=== PATIENT | male | born 1940 ===

== ENCOUNTER 2017-01-27 15:47 | Observation (INO) | payer MEDICARE ==
[2017-01-27 16:29] LABS: BASO # 0.1 K/uL (0.0-0.2); BASO % 1.1 % (0.0-2.0); EOS # 0.3 K/uL (0.0-0.7); EOS % 3.1 % (0.0-4.0); HEMATOCRIT 30.5 % (35.0-51.0); LYMPH # 2.7 K/uL (1.0-4.3); LYMPH % 30.5 % (20.0-40.0); MEAN CORPUSCULAR HGB CONC 32.2 g/dL (33.0-37.0); MEAN PLATELET VOLUME 8.1 fl (7.2-11.7); MONO # 0.7 K/uL (0.0-0.8); MONO % 7.8 % (0.0-10.0); NEUT # 5.1 K/uL (1.8-7.0); NEUT % 57.5 % (50.0-75.0); RED CELL DISTRIBUTION WIDTH 18.4 % (11.5-14.5); WHITE BLOOD COUNT 8.9 K/uL (4.8-10.8)
--- NOTE | 2017-01-27 16:32 | ED PDOC ---
HPI: General Adult Time Seen by Provider: 01/27/17 15:54 Chief Complaint (Nursing): Weakness/Neurological Deficit Chief Complaint (Provider): Weakness/Neurological Deficit History Per: Patient, Family () History/Exam Limitations: no limitations Onset/Duration Of Symptoms: Hrs Current Symptoms Are (Timing): Still Present Additional Complaint(s): 76 y/o male who presents to the emergency department accompanied by with a complaint of feeling off balance while walking this morning around 7am. Last known normal 10:30 PM yesterday. Patient described his whole body kept leaning towards the left side and couldn't stand up straight. As per , patient had a previous stroke in 2009 which affected the left side of his body. Denies fall , residual weakness or pain. PMD: Dr. Ashutosh Jade MD Neurologist: Dr. Naseem BALDERAS NIHSS Stroke Scale - Date/Time Evaluation Performed Date Performed: 01/27/17 Time Performed: 16:00 When Was NIHSS Performed: Code Stroke - How Severe is the Stroke Level of Consciousness: 0=Alert LOC to Questions: 0=Both comments correct LOC to commands: 0=Obeys both correctly Best Gaze: 0=Normal Visual: 0=No visual loss Facial: 0=Normal Motor Arm - Left: 0=No drift Motor Arm - Right: 0=No drift Motor Leg - Left: 0=No drift Motor Leg - Right: 0=No drift Limb Ataxia: 0=Absent Sensory: 0=Normal Best Language: 0=No aphasia Dysarthia: 0=Normal articulation Extinction & Inattention (Neglect): 0=Normal, no object Score: 0 rTPA Inclusion/Exclusion - Refusal of Treatment Patient Refused Treatment: No - Inclusion Criteria for Altepase Patient is 18 years or Older: Yes The Clinical Diagnosis of Ischemic Stroke That is Causing a Potentially Disabling Neurological Deficit: No Time of Onset is Well Established to be Less Than 270 Minute Before Treatment Would Begin: No Risk/Benefit Discussed With Patient/Family Member Present: No - Warning to TPA With Conditions Following Conditions Weighed Against Anticipated Benefit: Yes Condition: Stroke Serevity Too Mild, Rapid Improvement Past Medical History Reviewed: Historical Data, Nursing Documentation, Vital Signs Vital Signs: Last Vital Signs Temp 97.8 F 01/27/17 17:54 Pulse 66 01/27/17 17:54 Resp 17 01/27/17 17:54 BP 164/74 H 01/27/17 17:54 Pulse Ox 99 01/27/17 17:54 - Medical History PMH: Diabetes, HTN, Seizures (Focal in 2011) Other PMH: Stroke 2009 - Surgical History Surgical History: No Surg Hx - Family History Family History: States: Unknown Family Hx - Living Arrangements Living Arrangements: With Family - Allergies Allergies/Adverse Reactions: Allergies Allergy/AdvReac Type Severity Reaction Status Date / Time No Known Allergies Allergy Verified 01/27/17 16:06 Review of Systems ROS Statement: Except As Marked, All Systems Reviewed And Found Negative Neurological: Positive for: Other (Off balance; leaning towards the left side more. ). Negative for: Weakness (or pain) Physical Exam - Reviewed Nursing Documentation Reviewed: Yes Vital Signs Reviewed: Yes - Physical Exam Appears: Positive for: Non-toxic, No Acute Distress Head Exam: Positive for: ATRAUMATIC, NORMOCEPHALIC Skin: Positive for: Normal Color, Warm, Dry ENT: Positive for: Normal ENT Inspection. Negative for: Pharyngeal Erythema Neck: Positive for: Normal, Supple Cardiovascular/Chest: Positive for: Regular Rate, Rhythm. Negative for: Murmur Respiratory: Positive for: Normal Breath Sounds. Negative for: Accessory Muscle Use, Respiratory Distress Gastrointestinal/Abdominal: Positive for: Normal Exam, Soft. Negative for: Tenderness Extremity: Positive for: Normal ROM. Negative for: Pedal Edema, Swelling Neurologic/Psych: Positive for: Alert, inpatient services director II-XII, Oriented, Cerebellar Tests ( FTN intact, HTS intact), Gait (Deferred). Negative for: Motor/Sensory Deficits , Aphasia, Facial Droop - Laboratory Results Result Diagrams: 01/27/17 15:57 01/27/17 15:57 - ECG Interpretation Of ECG: SR @ 65, 1st degree AVB, no ST-T changes. O2 Sat by Pulse Oximetry: 99 (RA) Pulse Ox Interpretation: Normal - Radiology X-Ray: Read By Radiologist (No active disease.) - CT Scan/US CT head Other Rad Studies (CT/US): Radiology Report Reviewed (No CT evidence of acute intracranial hemorrhage or acute territorial infarct. Acute infarction may be CT occult within first 24 hours. If a focal deficit persists, consider followup CT or MRI for further evaluation. Old right cerebral hemisphere infarct. Old infarct in the left cerebellar hemisphere. ) - Progress ED Course And Treament: Pt ambulated in ED, and patient state gait back to baseline. Re-evaluation Time: 17:29 Condition: Improved - Critical Care Total Time (In Min): 30 Medical Decision Making Medical Decision Making: Time: 15:54 Initial impression: Initial plan: --Type and Screen Stat --Head w/o contrast (CT) --Electrocardiogram Stat --COMP Metabolic Panel --Hemoglobin A1C Stat --Lipid Panel Stat --Troponin I Stat --EKG-ED (EDNURTX) Stat --CBC w/ differential --Partial Thromboplastin Time (COAG) --Prothrombin Time (COAG) --Chest Portable (RAD) --[employer] Supervisor CONT --IV Insertion (Saline Lock) --ED Obtain Labs Stat --AccuCheck --Nursing Swallow Screen PRN --Vital Signs Q15MIN --Revaluation Dr. Gusman paged X 2, answering service states he is away until tomorrow AM, no coverage. Scribe Attestation: Documented by Leatha Mchugh, acting as a scribe for Deb Segal MD. Provider Scribe Attestation: All medical record entries made by the Scribe were at my direction and personally dictated by me. I have reviewed the chart and agree that the record accurately reflects my personal performance of the history, physical exam, medical decision making, and the department course for this patient. I have also personally directed, reviewed, and agree with the discharge instructions and disposition. Disposition - Clinical Impression Clinical Impression: Transient cerebral ischemia - Patient ED Disposition Is Patient to be Admitted: Yes - Disposition Disposition Time: 17:58 Condition: STABLE - Pt Status Changed To: Hospital Disposition Of: Inpatient - Admit Certification Admit to Inpatient:: After my assessment, the patient will require hospitalization for at least two midnights. This is because of the severity of symptoms shown, intensity of services needed, and/or the medical risk in this patient being treated as an outpatient. - POA Present On Arrival: None
[2017-01-27 16:37] LABS: ALKALINE PHOSPHATASE 90 U/L (38-126); ALT/SGPT 27 U/L (21-72); AST/SGOT 23 U/L (17-59); BILIRUBIN,TOTAL 0.4 mg/dl (0.2-1.3); BLOOD UREA NITROGEN 26 mg/dl (9-20); CALCIUM 9.6 mg/dL (8.4-10.2); CARBON DIOXIDE 23 mmol/L (22-30); CHLORIDE 104 mmol/L (98-107); CHOLESTEROL 217 mg/dL (0-199); GFR AFRICAN-AMERICAN > 60; GLUCOSE,RANDOM 120 mg/dL (75-110); POTASSIUM 4.6 MMOL/L (3.6-5.0); SODIUM 142 mmol/l (132-148); TOTAL PROTEIN 7.9 G/DL (6.3-8.2)
[2017-01-27 16:53] LABS: PARTIAL THROMBOPLASTIN TIME 27.5 SECONDS (23.3-32.5)
--- NOTE | 2017-01-27 17:05 | CT ---
PROCEDURE: CT HEAD WITHOUT CONTRAST. HISTORY: Ataxia COMPARISON: 05/11/2011 TECHNIQUE: Axial computed tomography images were obtained through the head/brain without intravenous contrast. Radiation dose: Total exam DLP = 850.79 mGy-cm. This CT was performed using one or more of the following dose reduction techniques: Automated exposure control, adjustment of the mA and/or KV according to patient size, and/or use of iterative reconstruction technique. FINDINGS: HEMORRHAGE: No intracranial hemorrhage. BRAIN: Old right cerebral hemisphere infarct. No mass effect or edema. Moderate volume loss, essentially unchanged. No new acute territorial infarct. Patchy and confluent hypodensities throughout the bilateral cerebral hemispheric white matter are most likely from chronic small vessel ischemic changes. VENTRICLES: Unremarkable. No hydrocephalus. CALVARIUM: Unremarkable. PARANASAL SINUSES: Unremarkable as visualized. No significant inflammatory changes. MASTOID AIR CELLS: Unremarkable as visualized. No inflammatory changes. OTHER FINDINGS: Extensive vascular calcifications. IMPRESSION: No CT evidence of acute intracranial hemorrhage or acute territorial infarct. Acute infarction may be CT occult within first 24 hours. If a focal deficit persists, consider followup CT or MRI for further evaluation. Old right cerebral hemisphere infarct. Old infarct in the left cerebellar hemisphere. The findings as above.
--- NOTE | 2017-01-27 17:09 | RAD ---
HISTORY: Ataxia COMPARISON: No prior. FINDINGS: LUNGS: No active pulmonary disease. PLEURA: No significant pleural effusion identified, no pneumothorax apparent. CARDIOVASCULAR: Normal. OSSEOUS STRUCTURES: No significant abnormalities. VISUALIZED UPPER ABDOMEN: Normal. OTHER FINDINGS: None. IMPRESSION: No active disease.
[2017-01-28] MEDS ORDERED: Pneumococcal 23-Valent Vaccine IM ONE (06:30)
[2017-01-28 07:27] LABS: HEMATOCRIT 28.4 % (35.0-51.0); MEAN CELL VOLUME 80.5 fl (80.0-94.0); MEAN CORPUSCULAR HEMOGLOBIN 26.2 pg (27.0-31.0); MEAN CORPUSCULAR HGB CONC 32.5 g/dL (33.0-37.0); RED CELL DISTRIBUTION WIDTH 17.9 % (11.5-14.5); WHITE BLOOD COUNT 6.9 K/uL (4.8-10.8)
[2017-01-28 07:51] LABS: BLOOD UREA NITROGEN 22 mg/dl (9-20); CALCIUM 9.1 mg/dL (8.4-10.2); CARBON DIOXIDE 26 mmol/L (22-30); CHLORIDE 106 mmol/L (98-107); CHOLESTEROL 202 mg/dL (0-199); GFR AFRICAN-AMERICAN > 60; GLUCOSE,RANDOM 109 mg/dL (75-110); POTASSIUM 4.2 MMOL/L (3.6-5.0); SODIUM 142 mmol/l (132-148)
[2017-01-28 07:57] LABS: T4 6.91 ug/dl (5.5-11.0)
[2017-01-28 08:10] LABS: THYROID STIMULATING HORMONE 2.86 mIU/ML (0.46-4.68)
--- NOTE | 2017-01-28 08:33 | CARD ---
APPROVED REPORT EKG Measurement Heart [id number] <Conclusion> Sinus rhythm with 1st degree AV block Otherwise normal ECG
--- NOTE | 2017-01-28 16:10 | CP.PCM.CON ---
History of Present Illness - History of Present Illness History of Present Illness: Mr. Davis is a 76-year-old man with a past medical history of previous right MCA ischemic stroke in 2010, hypertension, dyslipidemia, diabetes and seizure disorder who was brought in due to new difficulty with balance that was noticed yesterday at around 7AM. He was last normal the evening of January 26. CT scan of the head was done and showed the previous large right MCA chronic stroke and a questionable chronic left cerebellar infarct. Neurology was consulted to assist with the management and care. The patient complained of feeling off balance when he ambulates. He denied visual changes, nausea, headache, abnormal shaking movements, new weakness, new sensory changes, chest pain, shortness of breath or dizziness. Review of Systems - Review of Systems All systems: reviewed and no additional remarkable complaints except - Constitutional Constitutional: As Per HPI - EENT Eyes: As Per HPI Ears: As Per HPI Nose/Mouth/Throat: As Per HPI - Cardiovascular Cardiovascular: As Per HPI - Respiratory Respiratory: As Per HPI - Gastrointestinal Gastrointestinal: As Per HPI - Musculoskeletal Musculoskeletal: As Per HPI - Neurological Neurological: As Per HPI Past Patient History - Past Medical History & Family History Past Medical History?: Yes - Past Social History Smoking Status: Former Smoker - CARDIAC Hx Cardiac Disorders: Yes - PULMONARY Hx Respiratory Disorders: No - NEUROLOGICAL Hx Neurological Disorder: Yes - HEENT Hx HEENT Problems: No - RENAL Hx Chronic Kidney Disease: No - ENDOCRINE/METABOLIC Hx Endocrine Disorders: No - HEMATOLOGICAL/ONCOLOGICAL Hx Blood Disorders: No - INTEGUMENTARY Hx Dermatological Problems: No - MUSCULOSKELETAL/RHEUMATOLOGICAL Hx Musculoskeletal Disorders: No - GASTROINTESTINAL Hx Gastrointestinal Disorders: No - GENITOURINARY/GYNECOLOGICAL Hx Genitourinary Disorders: No - PSYCHIATRIC Hx Psychophysiologic Disorder: No - SURGICAL HISTORY Hx Surgeries: No - ANESTHESIA Hx Anesthesia: No Hx Anesthesia Reactions: No Meds Allergies/Adverse Reactions: Allergies Allergy/AdvReac Type Severity Reaction Status Date / Time No Known Allergies Allergy Verified 01/27/17 16:06 - Medications Medications: Current Medications Amlodipine Besylate (Norvasc) 10 mg PO DAILY [facility] Last Admin: 01/28/17 09:21 Dose: 10 mg Aspirin (Ecotrin) 81 mg PO DAILY [facility] Last Admin: 01/28/17 09:30 Dose: 81 mg Atorvastatin Calcium (Lipitor) 10 mg PO [facility] Carvedilol (Coreg) 12.5 mg PO BID [facility] Last Admin: 01/28/17 09:20 Dose: 12.5 mg Levetiracetam (Keppra) 500 mg PO BID [facility] Last Admin: 01/28/17 09:21 Dose: 500 mg Metformin HCl (Glucophage) 500 mg PO TID [facility] Last Admin: 01/28/17 09:20 Dose: 500 mg Physical Exam - Constitutional Appears: Well - Cardiovascular Exam Cardiovascular Exam: REGULAR RHYTHM - Extremities Exam Extremities exam: Positive for: normal inspection - Neurological Exam Neurological exam: Alert, CN II-XII Intact, Oriented x3 - Expanded Neurological Exam Expanded Patient oriented to: person, place, time Cranial nerves: EOM's Intact: Normal, Facial Palsey w/Forehead Movement: Abnormal Left, Facial Sensation: Normal Cerebellar Function: Finger to Nose: Abnormal Left, Heel to Alanis: Abnormal Left Upper motor neuron: Babinski Sign: Abnormal Left, Pronator Drift: Abnormal Left Sensory exam: Lower Extremity 2 Point Discrimination: Abnormal Left, Upper Extremity Light Touch: Abnormal Left Neuro motor strength exam: Left Upper Extremity: 4, Right Upper Extremity: 5, Left Lower Extremity: 4, Right Lower Extremity: 5 DTR: Bicep Left: 3+, Bicep Right: 2+, Brachioradialis Left: 3+, Brachioradialis Right: 2+, Patellar Left: 3+, Patellar Right: 2+ Results - Vital Signs Recent Vital Signs: Last Vital Signs Temp 98.2 F 01/28/17 12:18 Pulse 65 01/28/17 12:18 Resp 18 01/28/17 12:18 BP 141/70 01/28/17 12:18 Pulse Ox 97 01/28/17 12:18 - Labs Result Diagrams: 01/28/17 06:20 01/28/17 06:20 Labs: Laboratory Results - last 24 hr 01/27/17 01/27/17 01/28/17 18:00 18:41 05:55 WBC RBC Hgb Hct MCV MCH MCHC RDW Plt Count Sodium Potassium Chloride Carbon Dioxide Anion Gap BUN Creatinine Est GFR ( Amer) Est GFR (Non-Af Amer) POC Glucose (mg/dL) 104 Random Glucose Calcium Triglycerides Cholesterol LDL Cholesterol Direct HDL Cholesterol Thyroxine (T4) TSH 3rd Generation Blood Type O POSITIVE Blood Type Confirm O POSITIVE Antibody Screen Negative BBK History Checked No verified bt 01/28/17 01/28/17 06:20 12:06 WBC 6.9 RBC 3.53 L Hgb 9.2 L Hct 28.4 L MCV 80.5 MCH 26.2 L MCHC 32.5 L RDW 17.9 H Plt Count 303 Sodium 142 Potassium 4.2 Chloride 106 Carbon Dioxide 26 Anion Gap 15 BUN 22 H Creatinine 1.2 Est GFR ( Amer) > 60 Est GFR (Non-Af Amer) 59 POC Glucose (mg/dL) 139 H Random Glucose 109 Calcium 9.1 Triglycerides 142 Cholesterol 202 H LDL Cholesterol Direct 107 HDL Cholesterol 45 Thyroxine (T4) 6.91 TSH 3rd Generation 2.86 Blood Type Blood Type Confirm Antibody Screen BBK History Checked - Imaging and Cardiology CT scan - head Status: Image reviewed by me, Report reviewed by me (Large right MCA chronic stroke with possible hypdensity in the cerebellum on the left (not clear)) Assessment & Plan (1) TIA (transient ischemic attack) Assessment and Plan: His symptoms seem to have improved, but he continues to complain of balance problems. I recommend the followin. MRI brain without contrast/ MRA head/neck without contrast\ 2. Aspirin 81 mg daily 3. Telemetry 4. DVT Px 5. PT/OT Eval 6. Continue statin 7. Normotension 8. Keppra level Thank you very much for this consultation. Status: Acute
--- NOTE | 2017-01-28 17:57 | MRI ---
PROCEDURE: MRI BRAIN WITHOUT CONTRAST HISTORY: suspected stroke COMPARISON: Comparison is made to the previous MRI dated 05/12/[address] dated 01/27/2017 TECHNIQUE: Multiplanar, multisequence MR images of the brain were obtained without intravenous contrast enhancement. FINDINGS: HEMORRHAGE: No evidence of acute hemorrhage. DWI: No evidence of an acute or early subacute infarction. BRAIN PARENCHYMA: Large encephalomalacia at the right temporal parietal and occipital lobe consistent with old infarct. Mild to moderate atrophy. Moderate white matter changes suggestive but nonspecific for chronic microvascular ischemic disease. VENTRICLES: Slightly dilated ventricle likely due to central atrophy. CRANIUM: Unremarkable. ORBITS: Grossly unremarkable. PARANASAL SINUSES/MASTOIDS: Slight mucosal thickening seen. No evidence of air-fluid level. VASCULAR SYSTEM: Skull base flow voids intact. OTHER FINDINGS: None. IMPRESSION: No evidence of acute infarct. Large encephalomalacia at the right brain again seen suggestive of old infarct/infarcts. [id number] atrophy and moderate chronic microvascular white matter ischemic disease.
--- NOTE | 2017-01-28 19:49 | CARD ---
APPROVED REPORT EKG Measurement Heart [id number] <Conclusion> Sinus rhythm with 1st degree AV block Otherwise normal ECG
--- NOTE | 2017-01-28 21:04 | CP.PCM.HP ---
History of Present Illness - History of Present Illness History of Present Illness: 76 yo with hx R CVA, hypertension, dyslipidemia, diabetes and seizure disorder admitted for vague sx suggestive of TIA CT scan in ER showed no acute findings Present on Admission - Present on Admission Any Indicators Present on Admission: No Past Patient History - Past Medical History & Family History Past Medical History?: Yes - Past Social History Smoking Status: Former Smoker - CARDIAC Hx Cardiac Disorders: Yes - PULMONARY Hx Respiratory Disorders: No - NEUROLOGICAL Hx Neurological Disorder: Yes - HEENT Hx HEENT Problems: No - RENAL Hx Chronic Kidney Disease: No - ENDOCRINE/METABOLIC Hx Endocrine Disorders: No - HEMATOLOGICAL/ONCOLOGICAL Hx Blood Disorders: No - INTEGUMENTARY Hx Dermatological Problems: No - MUSCULOSKELETAL/RHEUMATOLOGICAL Hx Musculoskeletal Disorders: No - GASTROINTESTINAL Hx Gastrointestinal Disorders: No - GENITOURINARY/GYNECOLOGICAL Hx Genitourinary Disorders: No - PSYCHIATRIC Hx Psychophysiologic Disorder: No - SURGICAL HISTORY Hx Surgeries: No - ANESTHESIA Hx Anesthesia: No Hx Anesthesia Reactions: No Meds Allergies/Adverse Reactions: Allergies Allergy/AdvReac Type Severity Reaction Status Date / Time No Known Allergies Allergy Verified 01/27/17 16:06 Physical Exam - Respiratory Exam Respiratory Exam: NORMAL BREATHING PATTERN - Cardiovascular Exam Cardiovascular Exam: REGULAR RHYTHM - GI/Abdominal Exam GI & Abdominal Exam: Normal Bowel Sounds Results - Vital Signs Recent Vital Signs: Last Vital Signs Temp 97.6 F 01/28/17 19:32 Pulse 73 01/28/17 19:32 Resp 20 01/28/17 19:32 BP 167/86 H 01/28/17 19:32 Pulse Ox 98 01/28/17 19:32 - Labs Result Diagrams: 01/28/17 06:20 01/28/17 06:20 Labs: Laboratory Results - last 24 hr 01/28/17 01/28/17 01/28/17 05:55 06:20 12:06 WBC 6.9 RBC 3.53 L Hgb 9.2 L Hct 28.4 L MCV 80.5 MCH 26.2 L MCHC 32.5 L RDW 17.9 H Plt Count 303 Sodium 142 Potassium 4.2 Chloride 106 Carbon Dioxide 26 Anion Gap 15 BUN 22 H Creatinine 1.2 Est GFR ( Amer) > 60 Est GFR (Non-Af Amer) 59 POC Glucose (mg/dL) 104 139 H Random Glucose 109 Calcium 9.1 Triglycerides 142 Cholesterol 202 H LDL Cholesterol Direct 107 HDL Cholesterol 45 Thyroxine (T4) 6.91 TSH 3rd Generation 2.86 01/28/17 18:18 WBC RBC Hgb Hct MCV MCH MCHC RDW Plt Count Sodium Potassium Chloride Carbon Dioxide Anion Gap BUN Creatinine Est GFR ( Amer) Est GFR (Non-Af Amer) POC Glucose (mg/dL) 187 H Random Glucose Calcium Triglycerides Cholesterol LDL Cholesterol Direct HDL Cholesterol Thyroxine (T4) TSH 3rd Generation Assessment & Plan - Assessment and Plan (Free Text) Assessment: TIA Hx R CVA, Neuro Cardiology ASA w/u Anemia Normochromic normocytic etiol? w/u ordered Hypertension Dyslipidemia Diabetes A1c 8.1 Seizure disorder - Date & Time Date: 01/28/17 Time: 22:22
--- NOTE | 2017-01-29 09:21 | MRI ---
PROCEDURE: Magnetic Resonance Angiography Brain HISTORY: Possible stroke COMPARISON: None available. TECHNIQUE: 3D time of flight MR angiography of the intracranial arteries was performed. Rotating maximum intensity projection images were generated. FINDINGS: INTERNAL CEREBRAL ARTERIES: There is mild asymmetric narrowing of the right cavernous carotid segment. The skull base,petrous, left cavernous and supraclinoid segments are bilaterally widely patient. ANTERIOR CEREBRAL ARTERIES: Normal in caliber. A1 and A2 segments are widely patent. Smaller distal branches unremarkable, as visualized. MIDDLE CEREBRAL ARTERIES: The left M1 and M2 segments are widely patent. The left perisylvian branches are normal in caliber. There is attenuation of the right perisylvian branches. POSTERIOR CIRCULATION: Basilar Artery: Normal in caliber Distal Vertebral Arteries: Normal in caliber. Posterior Cerebral Arteries: There is high-grade stenosis at the right posterior cerebral artery origin. There is also flow gap in the right proximal P2 segment and attenuation of the distal P2 segment. There is high-grade stenosis in the proximal left P2 segment. Posterior Inferior Cerebellar Arteries: Unremarkable. ANEURYSM/ VASCULAR MALFORMATIONS: None. OTHER FINDINGS: None. IMPRESSION: 1. Asymmetric narrowing of the right perisylvian branches of the M2 segment of middle cerebral artery. 2. High-grade stenosis at the right posterior cerebral artery origin and near occlusion in the proximal P2 segment with severe narrowing of the distal P2 segment. 3. High-grade stenosis in the proximal left P2 segment. Findings may be related to intracranial atherosclerosis.
--- NOTE | 2017-01-29 09:23 | MRI ---
PROCEDURE: MR Angiography of the neck without contrast HISTORY: possible stroke COMPARISON: None available. TECHNIQUE: 3D [id number] angiography of the neck was performed. Rotating maximum intensity projection images of the cervical carotid and vertebral arteries were generated. The origins of the common carotid arteries were not visualized, which is a limitation inherent to the non-contrast time of flight technique. FINDINGS: RIGHT CAROTID ARTERIES: Common Carotid Artery: Normal. Carotid Bifurcation: Normal. Internal Carotid Artery:Normal. External Carotid Artery (proximal branches): Normal. LEFT CAROTID ARTERIES: Common Carotid Artery: Normal. Carotid Bifurcation: Normal. Internal Carotid Artery:Normal. External Carotid Artery (proximal branches): Normal. VERTEBRAL ARTERIES: Right Vertebral Artery: Normal. Left Vertebral Artery: Normal. OTHER FINDINGS: None. IMPRESSION: Normal MR Angiography of the neck.
--- NOTE | 2017-01-29 21:01 | CP.PCM.PN ---
Subjective - Date & Time of Evaluation Date of Evaluation: 01/29/17 Time of Evaluation: 22:22 - Subjective Subjective: Still with unsteady gait? Objective - Vital Signs/Intake and Output Vital Signs (last 24 hours): Temp Pulse Resp BP Pulse Ox 98.4 F 83 20 163/80 H 98 01/29/17 20:34 01/29/17 20:50 01/29/17 20:34 01/29/17 20:34 01/29/17 20:34 - Medications Medications: Current Medications Amlodipine Besylate (Norvasc) 10 mg PO DAILY [facility] Last Admin: 01/29/17 09:26 Dose: 10 mg Aspirin (Ecotrin) 81 mg PO DAILY [facility] Last Admin: 01/29/17 09:26 Dose: 81 mg Atorvastatin Calcium (Lipitor) 10 mg PO HS [facility] Last Admin: 01/28/17 22:11 Dose: 10 mg Carvedilol (Coreg) 12.5 mg PO BID [facility] Last Admin: 01/29/17 16:20 Dose: 12.5 mg Levetiracetam (Keppra) 500 mg PO BID [facility] Last Admin: 01/29/17 16:19 Dose: 500 mg Metformin HCl (Glucophage) 500 mg PO TID [facility] Last Admin: 01/29/17 16:19 Dose: 500 mg - Labs Labs: 01/28/17 06:20 01/28/17 06:20 PT 10.1 SECONDS (9.6-11.2) 01/27/17 15:57 INR 0.97 (0.92-1.08) 01/27/17 15:57 APTT 27.5 SECONDS (23.3-32.5) 01/27/17 15:57 - Respiratory Exam Respiratory Exam: NORMAL BREATHING PATTERN - Cardiovascular Exam Cardiovascular Exam: REGULAR RHYTHM - GI/Abdominal Exam GI & Abdominal Exam: Normal Bowel Sounds Assessment and Plan - Assessment and Plan (Free Text) Assessment: TIA Hx R CVA, MRA R MCA? R post cerebral artery? Neuro Cardiology ASA Anemia Normochromic normocytic etiol? w/u ordered Hypertension Dyslipidemia Diabetes A1c 8.1 Seizure disorder
[2017-01-30 06:57] LABS: IRON 36 ug/dL (49-181)
[2017-01-30 07:24] LABS: THYROID STIMULATING HORMONE 2.68 mIU/ML (0.46-4.68)
[2017-01-30 08:08] VITALS: RESP 20
--- NOTE | 2017-01-30 11:00 | CP.PCM.CON ---
History of Present Illness - History of Present Illness History of Present Illness: 76 year old male admitted with possible TIA. History of seizure disorder, hypertension, diabetes type 2, history of CVA. Neurology consulted echo performed. Normocystic anemia noted on labs. Pt taking ASA 81mg 3x per wk. Chest pain free, no sob, no complaints of palpitations Past Patient History - Past Medical History & Family History Past Medical History?: Yes - Past Social History Smoking Status: Former Smoker - CARDIAC Hx Cardiac Disorders: Yes - PULMONARY Hx Respiratory Disorders: No - NEUROLOGICAL Hx Neurological Disorder: Yes - HEENT Hx HEENT Problems: No - RENAL Hx Chronic Kidney Disease: No - ENDOCRINE/METABOLIC Hx Endocrine Disorders: No - HEMATOLOGICAL/ONCOLOGICAL Hx Blood Disorders: No - INTEGUMENTARY Hx Dermatological Problems: No - MUSCULOSKELETAL/RHEUMATOLOGICAL Hx Musculoskeletal Disorders: No - GASTROINTESTINAL Hx Gastrointestinal Disorders: No - GENITOURINARY/GYNECOLOGICAL Hx Genitourinary Disorders: No - PSYCHIATRIC Hx Psychophysiologic Disorder: No - SURGICAL HISTORY Hx Surgeries: No - ANESTHESIA Hx Anesthesia: No Hx Anesthesia Reactions: No Meds Allergies/Adverse Reactions: Allergies Allergy/AdvReac Type Severity Reaction Status Date / Time No Known Allergies Allergy Verified 01/27/17 16:06 - Medications Medications: Current Medications Amlodipine Besylate (Norvasc) 10 mg PO DAILY [facility] Last Admin: 01/30/17 08:10 Dose: 10 mg Aspirin (Ecotrin) 325 mg PO DAILY [facility] Atorvastatin Calcium (Lipitor) 10 mg PO [facility] Last Admin: 01/29/17 21:02 Dose: 10 mg Carvedilol (Coreg) 12.5 mg PO BID [facility] Last Admin: 01/30/17 08:09 Dose: 12.5 mg Levetiracetam (Keppra) 500 mg PO BID [facility] Last Admin: 01/30/17 08:10 Dose: 500 mg Metformin HCl (Glucophage) 500 mg PO TID [facility] Last Admin: 01/30/17 08:10 Dose: 500 mg Physical Exam - Neck Exam Neck exam: Positive for: Normal Inspection - Respiratory Exam Respiratory Exam: Clear to Auscultation Bilateral - Cardiovascular Exam Cardiovascular Exam: REGULAR RHYTHM - GI/Abdominal Exam GI & Abdominal Exam: Normal Bowel Sounds - Extremities Exam Extremities exam: Positive for: normal inspection Results - Vital Signs Recent Vital Signs: Last Vital Signs Temp 98.0 F 01/30/17 08:07 Pulse 84 01/30/17 08:10 Resp 20 01/30/17 08:07 BP 166/89 H 01/30/17 08:10 Pulse Ox 98 01/30/17 08:07 - Labs Result Diagrams: 01/28/17 06:20 01/28/17 06:20 Labs: Laboratory Results - last 24 hr 01/29/17 01/29/17 01/29/17 11:09 15:54 21:15 POC Glucose (mg/dL) 190 H 150 H 163 H Iron TIBC % Saturation Ferritin Triglycerides Cholesterol LDL Cholesterol Direct HDL Cholesterol Vitamin B12 TSH 3rd Generation 01/30/17 01/30/17 05:30 05:35 POC Glucose (mg/dL) 113 H Iron 36 L TIBC 327 % Saturation 11 L Ferritin 10.0 Triglycerides 145 Cholesterol 208 H LDL Cholesterol Direct 113 HDL Cholesterol 43 Vitamin B12 706 TSH 3rd Generation 2.68 Assessment & Plan - Assessment and Plan (Free Text) Assessment: 76 year old male with possible TIA history of stroke, hypertension , diabetes, seizure disorder. Pt at relatively high risk for recurrent stroke. Echo reveals : Normal LVEF, Concentric LVH, Intra-atrial septal anneurysm with small PFO. No clot was visualized. Intra-atrial septal anneurysm and PFO's have been found to more prevalent in pts with strokes. Bp mildly elevated. #1 TIA? IAS / PFO : would probably optimize antiplatelet regimen with Plavix given recurrent strokes and echo findings. Pt is not a good candidate for Coumadin/ Anti-Thrombin agents given history of seizure disorder, dizziness and walking with cane. Would defer to neurology regarding anti-coagulation regimen #2 Bp : mildly elevated would further adjust as outpt continue present medical regimen #3 Would order iron studies, anemia w/u prior to dc given need for ongoing anti- platelet therapy. Plan: See Recommendations outlined in assessment
--- NOTE | 2017-01-30 12:53 | CP.PCM.PCO ---
Assessment/Plan - Assessment/Plan Assessment (Free Text): Patient seen and examined this morning. Reviewed MRI/MRA results with Dr Bravo neurologist. Orders for increasing aspirin from 81mg to 325mg daily. Patient may be discharged home, can follow up with Neurology outpatient. - Problems Patient Problems: Problem List (Active/Current) Problem Status Priority Diagnosed Code TIA (transient ischemic attack) Acute G45.9
--- NOTE | 2017-01-30 14:52 | CARD ---
APPROVED REPORT EXAM: Two-dimensional and M-mode echocardiogram with Doppler and color Doppler. Other Information Quality : GoodRhythm : NSR INDICATION CVA/TIA 2D DIMENSIONS IVSd1.93 (0.7-1.1cm)LVDd3.81 (3.9-5.9cm) LVOT Diameter2.16 (1.8-2.4cm)PWd1.25 (0.7-1.1cm) IVSs1.61 (0.8-1.2cm)LVDs3.16 (2.5-4.0cm) FS (%) 16.9 %PWs1.72 (0.8-1.2cm) M-Mode DIMENSIONS Left Atrium (MM)4.44 (2.5-4.0cm)IVSd1.44 (0.7-1.1cm) Aortic Root3.65 (2.2-3.7cm)LVDd4.50 (4.0-5.6cm) Aortic Cusp Exc.1.91 (1.5-2.0cm)PWd1.15 (0.7-1.1cm) IVSs1.71 cmFS (%) 31 % LVDs3.12 (2.0-3.8cm)PWs1.62 cm Mitral Valve MV E Cdrbpypq32.2cm/sMV DECEL [id number] A Ortcmpcb226.7cm/s MV MDM37vhL/A ratio0.4MVA (PHT)3.94cm2 TDI Lateral E' Peak V9.29cm/sMedial E' Peak V2.53cm/sE/Lateral E'4.2 E/Medial E'15.5 Pulmonary Valve PV Peak Wadmdoyz27.3cm/s LEFT VENTRICLE The left ventricle is normal size. There is mild concentric left ventricular hypertrophy. The left ventricular function is normal. The left ventricular ejection fraction is - 60%. There is normal LV segmental wall motion. Transmitral Doppler flow pattern is Grade I-abnormal relaxation pattern. No left ventricle thrombus noted on this study. There is no ventricular septal defect visualized. There is no left ventricular aneurysm. There is no mass noted in the left ventricle. RIGHT VENTRICLE The right ventricle is normal size. There is normal right ventricular wall thickness. The right ventricular systolic function is normal. ATRIA The left atrium is mildly dilated. There is no thrombus suspected in the left atrium. The right atrium size is normal. The interatrial septum is intact with no evidence for an atrial septal defect. AORTIC VALVE The aortic valve is normal in structure and function. There is mild aortic regurgitation. There is no aortic valvular stenosis. MITRAL VALVE The mitral valve is normal in structure and function. There is no evidence of mitral valve prolapse. There is no mitral valve stenosis. There is no mitral valve regurgitation noted. TRICUSPID VALVE The tricuspid valve is normal in structure and function. There is trace tricuspid regurgitation. There is no tricuspid valve prolapse or vegetation. There is no tricuspid valve stenosis. PULMONIC VALVE The pulmonary valve is normal in structure and function. There is no pulmonic valvular regurgitation. GREAT VESSELS The aortic root is normal in size. The IVC is normal in size and collapses >50% with inspiration. PERICARDIAL EFFUSION The pericardium appears normal. There is no pleural effusion. <Conclusion> The left ventricle is normal size. There is mild concentric left ventricular hypertrophy. The left ventricular function is normal. The left ventricular ejection fraction is - 60%. The left atrium is mildly dilated. The mitral, aortic and tricuspid valves are normal. There is mild aortic regurgitation and trace tricuspid regurgitation.
[2017-01-30 15:50] VITALS: BP 159/78; PULSE 69; TEMP 98; O2SAT 99
--- NOTE | 2017-01-30 18:04 | CP.PCM.PN ---
Subjective - Date & Time of Evaluation Date of Evaluation: 01/30/17 Time of Evaluation: 22:22 - Subjective Subjective: Above noted Objective - Vital Signs/Intake and Output Vital Signs (last 24 hours): Temp Pulse Resp BP Pulse Ox 98.0 F 69 20 159/78 H 99 01/30/17 15:49 01/30/17 17:03 01/30/17 15:49 01/30/17 17:03 01/30/17 15:49 - Medications Medications: Current Medications Amlodipine Besylate (Norvasc) 10 mg PO DAILY [facility] Last Admin: 01/30/17 08:10 Dose: 10 mg Aspirin (Ecotrin) 325 mg PO DAILY [facility] Atorvastatin Calcium (Lipitor) 10 mg PO HS [facility] Last Admin: 01/29/17 21:02 Dose: 10 mg Carvedilol (Coreg) 12.5 mg PO BID [facility] Last Admin: 01/30/17 17:03 Dose: 12.5 mg Levetiracetam (Keppra) 500 mg PO BID [facility] Last Admin: 01/30/17 17:04 Dose: 500 mg Metformin HCl (Glucophage) 500 mg PO TID [facility] Last Admin: 01/30/17 17:03 Dose: 500 mg - Labs Labs: 01/28/17 06:20 01/28/17 06:20 PT 10.1 SECONDS (9.6-11.2) 01/27/17 15:57 INR 0.97 (0.92-1.08) 01/27/17 15:57 APTT 27.5 SECONDS (23.3-32.5) 01/27/17 15:57 - Respiratory Exam Respiratory Exam: NORMAL BREATHING PATTERN - Cardiovascular Exam Cardiovascular Exam: REGULAR RHYTHM - GI/Abdominal Exam GI & Abdominal Exam: Normal Bowel Sounds Assessment and Plan - Assessment and Plan (Free Text) Assessment: TIA Hx R CVA, MRA R MCA? R post cerebral artery? Neuro Cardiology ASA Anemia Normochromic normocytic etiol? w/u ordered Hypertension Dyslipidemia Diabetes A1c 8.1 Seizure disorder
[2017-01-31] MEDS ORDERED: Aspirin 325 mg EC Tablets PO SCH (09:00)
== END 2017-01-30 19:55 | disposition home or self-care (01) ==
LOC: H.ER 15:47 → INTOOBSV 17:55 → H.ERHOLD 17:55 → H.TEL 21:41 → UNDODISIN 01-30 19:00
PROVIDERS: ADMIT Family Medicine Geriatric Medicine; ATTEND Family Medicine Geriatric Medicine
DX: G45.9 Transient cerebral ischemic attack, unspecified (principal); E11.9 Type 2 diabetes mellitus without complications; D64.9 Anemia, unspecified; E78.5 Hyperlipidemia, unspecified; I10 Essential (primary) hypertension; G40.909 Epilepsy, unspecified, not intractable, without status epilepticus; Z86.73 Personal history of transient ischemic attack (TIA), and cerebral infarction without residual deficits; Z23 Encounter for immunization
CPT/HCPCS: 36415; 70450; 70544; 70547; 70551; 71010; 80048; 80053; 80061; 80299; 82607; 82728; 82747; 82948; 83036; 83540; 83550; 84436; 84443; 84484; 85025; 85027; 85610; 85730; 86850; 86900; 90732; 93005; 93306; 97116; 97161; 97166; 97530; 97535; 99283; G0009; G0378; G8978; G8979; G8987; G8988

== ENCOUNTER 2018-01-21 19:02 | Inpatient (IN) | payer MEDICARE ==
--- NOTE | 2018-01-21 19:23 | ED PDOC ---
HPI:STROKE - Time Time: 19:25 - Historian Historian: Patient, Family - Chief Complaint Chief Complaint: Difficulty walking, other (difficulty with speech) - Onset Onset: Hours (x11) - Notes: Notes:: Lizandro Davis is a 77 year old male with a past medical history of stroke, who is presenting to the ER with complaints of difficulty walking, onset around 8 am this morning when he woke up. According to this , they believed he was tired and fatigued, but his difficulty walking persisted and worsened throughout the day. Patient began to lean to one side when walking to the bathroom associated with speech difficulties, and was admitted for similar symptoms 1 year ago. He offers no other medical complaints at this time. PMD: Dr. Moreno NIHSS Stroke Scale - Date/Time Evaluation Performed Date Performed: 01/21/18 Time Performed: 19:20 When Was NIHSS Performed: Baseline - How Severe is the Stroke Level of Consciousness: 0=Alert LOC to Questions: 0=Both comments correct LOC to commands: 0=Obeys both correctly Best Gaze: 0=Normal Visual: 0=No visual loss Facial: 1=Minor asymmetry Motor Arm - Left: 0=No drift Motor Arm - Right: 0=No drift Motor Leg - Left: 0=No drift Motor Leg - Right: 0=No drift Limb Ataxia: 0=Absent Sensory: 0=Normal Best Language: 1=Mild to moderate aphasia Dysarthia: 1=Mild to moderate slurring Extinction & Inattention (Neglect): 0=Normal, no object Score: 3 rTPA Inclusion/Exclusion - Refusal of Treatment Patient Refused Treatment: No - Inclusion Criteria for Altepase Patient is 18 years or Older: Yes The Clinical Diagnosis of Ischemic Stroke That is Causing a Potentially Disabling Neurological Deficit: Yes Time of Onset is Well Established to be Less Than 270 Minute Before Treatment Would Begin: No Risk/Benefit Discussed With Patient/Family Member Present: No - Exclusion Criteria for Altepase Uncontrolled Hypertension at Time of Treatment (Systolic BP above 185 or Diastolic BP above 110 mmHg): No Past Medical History Reviewed: Historical Data, Nursing Documentation, Vital Signs Vital Signs: Last Vital Signs Temp 97.4 F L 01/21/18 19:13 Pulse 71 01/21/18 19:13 Resp 18 01/21/18 19:13 BP 138/75 01/21/18 19:13 Pulse Ox 98 01/21/18 19:13 - Medical History PMH: CVA, Diabetes, HTN, Hypercholesterolemia, Seizures (Focal in 2011) Denies: Chronic Kidney Disease - Family History Family History: States: Unknown Family Hx - Home Medications Home Medications: Ambulatory Orders Medication Instructions Recorded Carvedilol [Coreg] 12.5 mg PO BID 01/27/17 levETIRAcetam [Keppra] 500 mg PO BID 01/27/17 metFORMIN [glucOPHAGE] 500 mg PO TID 01/27/17 Clopidogrel [Plavix] 75 mg PO DAILY #7 tab 01/30/17 Aspirin [Aspirin Chewable] 81 mg PO DAILY chew 01/24/18 Atorvastatin [Lipitor] 10 mg PO HS 01/24/18 Cilostazol [Pletal] 100 mg PO BID tab 01/24/18 Enoxaparin [Lovenox] 30 mg SC DAILY syr 01/24/18 - Allergies Allergies/Adverse Reactions: Allergies Allergy/AdvReac Type Severity Reaction Status Date / Time No Known Allergies Allergy Verified 01/27/17 16:06 Review of Systems ROS Statement: Except As Marked, All Systems Reviewed And Found Negative Constitutional: Positive for: Other (Difficulty speaking) Musculoskeletal: Positive for: Other (difficulty walking) Physical Exam - Reviewed Nursing Documentation Reviewed: Yes Vital Signs Reviewed: Yes - Physical Exam Appears: Positive for: No Acute Distress. Negative for: Well ((+) appears chronically ill) Head Exam: Positive for: ATRAUMATIC, NORMOCEPHALIC Skin: Positive for: Warm, Dry Eye Exam: Positive for: EOMI, PERRL ENT: Positive for: Other (tachy mucous membranes) Neck: Positive for: Painless ROM, Supple Cardiovascular/Chest: Positive for: Regular Rate, Rhythm. Negative for: Murmur Respiratory: Positive for: Normal Breath Sounds. Negative for: Wheezing Gastrointestinal/Abdominal: Positive for: Soft. Negative for: Tenderness Back: Positive for: Normal Inspection Extremity: Negative for: Deformity Lymphatic: Negative for: Adenopathy Neurologic/Psych: Positive for: Alert, Oriented (x3), Gait (shuffling, slow), Other (subtle facial droop, see NIH stroke scale) - Laboratory Results Result Diagrams: 01/24/18 10:10 01/24/18 10:10 - ECG O2 Sat by Pulse Oximetry: 98 (RA) Pulse Ox Interpretation: Normal Medical Decision Making Medical Decision Making: Time: 20:02 Impression:abnormal gait, and slurred speech Differentials: stroke, TIA dehydration, electrolyte abnormality, metabolic encephalopathy Plan: --Blood Type and Screen --CT Head --CTA Head/Neck --EKG --CMP --Hemoglobin A1C --Lipid Panel --Magnesium --Troponin --CBC --COAG --IV Fluids CT head with no acute findings. MAKENNA Bravo Neurology avionics electronics technician. Pt to be hospitalized for possible CVA vs metabolic encephalopathy Scribe Attestation: Documented by Karina Swan acting as a scribe for Michelle Renteria MD. Scribe Attestation: All medical record entries made by the Scribe were at my direction and personally dictated by me. I have reviewed the chart and agree that the record accurately reflects my personal performance of the history, physical exam, medical decision making, and the department course for this patient. I have also personally directed, reviewed, and agree with the discharge instructions and disposition. Disposition - Clinical Impression Clinical Impression: Dehydration, Weakness of one side of body Discussed With Dr.: Ashutosh Jade Doctor Will See Patient In The: Hospital Counseled Patient/Family Regarding: Studies Performed, Diagnosis - Disposition Disposition Time: 21:00 Condition: GUARDED - Pt Status Changed To: Hospital Disposition Of: Inpatient - Admit Certification Admit to Inpatient:: After my assessment, the patient will require hospitalization for at least two midnights. This is because of the severity of symptoms shown, intensity of services needed, and/or the medical risk in this patient being treated as an outpatient. - POA Present On Arrival: Falls Or Trauma
[2018-01-21] MEDS ORDERED: Sodium Chloride 0.9% 1,000 ML IV SCH (19:30)
[2018-01-21 20:10] LABS: BASO # 0.1 K/uL (0.0-0.2); BASO % 0.8 % (0.0-2.0); EOS # 0.3 K/uL (0.0-0.7); EOS % 3.9 % (0.0-4.0); HEMOGLOBIN 9.3 g/dL (12.0-18.0); LYMPH # 2.1 K/uL (1.0-4.3); LYMPH % 27.4 % (20.0-40.0); MEAN CELL VOLUME 84.1 fl (80.0-94.0); MEAN CORPUSCULAR HEMOGLOBIN 28.1 pg (27.0-31.0); MEAN CORPUSCULAR HGB CONC 33.5 g/dL (33.0-37.0); MONO # 0.7 K/uL (0.0-0.8); MONO % 8.4 % (0.0-10.0); NEUT # 4.7 K/uL (1.8-7.0); NEUT % 59.5 % (50.0-75.0); NRBC % 0.1 % (0.0-0.0); RBC 3.3 Mil/uL (4.40-5.90); RED CELL DISTRIBUTION WIDTH 15.4 % (11.5-14.5); WHITE BLOOD COUNT 7.9 K/uL (4.8-10.8)
[2018-01-21 20:17] LABS: PARTIAL THROMBOPLASTIN TIME 35.1 Seconds (25.6-37.1); PROTHROMBIN TIME 10.7 Seconds (9.8-13.1)
[2018-01-21 20:22] LABS: ALBUMIN 3.7 g/dL (3.5-5.0); ALT/SGPT 26 U/L (21-72); AST/SGOT 27 U/L (17-59); BLOOD UREA NITROGEN 23 mg/dl (9-20); GFR AFRICAN-AMERICAN 51; GFR NON-AFRICAN AMERICAN 42; HDL CHOLESTEROL 41 MG/DL (30-70)
[2018-01-21 20:32] LABS: LDL CHOLESTEROL 95 mg/dL (0-129)
--- NOTE | 2018-01-21 22:56 | CP.PCM.CON ---
History of Present Illness - History of Present Illness History of Present Illness: Mr. Davis is a 77-year-old man with a past medical history of HTN, HLD, previous large right MCA stroke, seizure disorder, who has recovered incredibly well, but over the last several days has had progressive worsening of his gait and speech difficulty. His brought him in today because she felt that his gait was becoming worse. CT scan of the head did not show any acute findings, but did demonstrate the previous large right MCA stroke. Labs showed elevated creatinine and signs of dehydration. Review of Systems - Review of Systems All systems: reviewed and no additional remarkable complaints except Past Patient History - Past Medical History & Family History Past Medical History?: Yes - Past Social History Smoking Status: Former Smoker - CARDIAC Hx Hypercholesterolemia: Yes Hx Hypertension: Yes - PULMONARY Hx Respiratory Disorders: No - NEUROLOGICAL Hx Seizures: Yes (Focal in 2010) - HEENT Hx HEENT Problems: No - RENAL Hx Chronic Kidney Disease: No - ENDOCRINE/METABOLIC Hx Endocrine Disorders: No - HEMATOLOGICAL/ONCOLOGICAL Hx Blood Disorders: No - INTEGUMENTARY Hx Dermatological Problems: No - MUSCULOSKELETAL/RHEUMATOLOGICAL Hx Musculoskeletal Disorders: No - GASTROINTESTINAL Hx Gastrointestinal Disorders: No - GENITOURINARY/GYNECOLOGICAL Hx Genitourinary Disorders: No - PSYCHIATRIC Hx Psychophysiologic Disorder: No Hx Substance Use: No - SURGICAL HISTORY Hx Surgeries: No - ANESTHESIA Hx Anesthesia: No Hx Anesthesia Reactions: No Meds Allergies/Adverse Reactions: Allergies Allergy/AdvReac Type Severity Reaction Status Date / Time No Known Allergies Allergy Verified 01/27/17 16:06 - Medications Medications: Current Medications Atorvastatin Calcium (Lipitor) 10 mg PO HS [facility] Carvedilol (Coreg) 12.5 mg PO BID [facility] Clopidogrel Bisulfate (Plavix) 75 mg PO DAILY [facility] Sodium Chloride (Sodium Chloride 0.9%) 1,000 mls @ 100 mls/hr IV .Q10H [facility] Levetiracetam (Keppra) 500 mg PO BID [facility] Metformin HCl (Glucophage) 500 mg PO TID [facility] Physical Exam - Neurological Exam Neurological exam: Abnormal Gait, Alert, CN II-XII Intact, Oriented x3 Additional comments: Reflexes are brisk on the left side with upgoing plantar response. Coordination is slightly impaired with FTN and HTS. Gait is wide based with elements of ataxia. Sensation is intact to LT/P. Results - Vital Signs Recent Vital Signs: Last Vital Signs Temp 98.1 F 01/21/18 20:18 Pulse 71 01/21/18 19:13 Resp 18 01/21/18 19:13 BP 138/75 01/21/18 19:13 Pulse Ox 98 01/21/18 20:16 - Labs Result Diagrams: 01/21/18 20:02 01/21/18 20:02 Labs: Laboratory Results - last 24 hr 01/21/18 01/21/18 01/21/18 19:11 20:02 20:02 WBC 7.9 RBC 3.30 L Hgb 9.3 L Hct 27.7 L MCV 84.1 D MCH 28.1 MCHC 33.5 RDW 15.4 H Plt Count 366 MPV 7.0 L Neut % (Auto) 59.5 Lymph % (Auto) 27.4 [place] % (Auto) 8.4 Eos % (Auto) 3.9 Baso % (Auto) 0.8 Neut # (Auto) 4.7 Lymph # (Auto) 2.1 [place] # (Auto) 0.7 Eos # (Auto) 0.3 Baso # (Auto) 0.1 PT INR APTT Sodium 141 Potassium 4.8 Chloride 105 Carbon Dioxide 21 L Anion Gap 20 BUN 23 H Creatinine 1.6 H Est GFR ( Amer) 51 Est GFR (Non-Af Amer) 42 POC Glucose (mg/dL) 160 H Random Glucose 175 H Calcium 9.0 Phosphorus 3.8 Magnesium 2.0 Total Bilirubin 0.2 AST 27 ALT 26 Alkaline Phosphatase 86 Troponin I < 0.0120 Total Protein 7.3 Albumin 3.7 Globulin 3.6 Albumin/Globulin Ratio 1.0 Triglycerides 201 H D Cholesterol 171 LDL Cholesterol Direct 95 HDL Cholesterol 41 Blood Type Antibody Screen BBK History Checked 01/21/18 01/21/18 20:02 20:02 WBC RBC Hgb Hct MCV MCH MCHC RDW Plt Count MPV Neut % (Auto) Lymph % (Auto) [place] % (Auto) Eos % (Auto) Baso % (Auto) Neut # (Auto) Lymph # (Auto) [place] # (Auto) Eos # (Auto) Baso # (Auto) PT 10.7 INR 1.0 APTT 35.1 Sodium Potassium Chloride Carbon Dioxide Anion Gap BUN Creatinine Est GFR ( Amer) Est GFR (Non-Af Amer) POC Glucose (mg/dL) Random Glucose Calcium Phosphorus Magnesium Total Bilirubin AST ALT Alkaline Phosphatase Troponin I Total Protein Albumin Globulin Albumin/Globulin Ratio Triglycerides Cholesterol LDL Cholesterol Direct HDL Cholesterol Blood Type O POSITIVE Antibody Screen Negative BBK History Checked Patient has bt Assessment & Plan (1) Dehydration Assessment and Plan: I recommend fluids with NS at 100 mL/hr after 1 liter bolus. Continue evaluating with cultures, urinalysis and infectious work-up. Check Keppra level since it may be elevated and causing some gait instability due to increased creatinine and decreased clearance. Status: Acute Priority: High (2) TIA (transient ischemic attack) Assessment and Plan: Continue Plavix, statin and obtain PT/OT eval with treatment. Will obtain MRI of the brain without contrast to rule out any new strokes. Thank you. Status: Acute
[2018-01-22] MEDS ORDERED: Influenza Vaccine 18yr & older 0.5 ML/45 MCG SYR IM ONE (03:23)
--- NOTE | 2018-01-22 08:17 | CT ---
PROCEDURE: CT HEAD WITHOUT CONTRAST. HISTORY: code stroke COMPARISON: 01/27/2017 TECHNIQUE: Axial computed tomography images were obtained through the head/brain without intravenous contrast. Radiation dose: Total exam DLP = 852 mGy-cm. This CT exam was performed using one or more of the following dose reduction techniques: Automated exposure control, adjustment of the mA and/or kV according to patient size, and/or use of iterative reconstruction technique. FINDINGS: HEMORRHAGE: No intracranial hemorrhage. BRAIN: The right cerebral hemispheric encephalomalacia with old infarct is similar in appearance No atrophy or Chronic microvascular ischemic changes -similar. VENTRICLES: Ex vacuo changes on the right. No interval hydrocephalus. CALVARIUM: Unremarkable. PARANASAL SINUSES: Unremarkable as visualized. No significant inflammatory changes. MASTOID AIR CELLS: Unremarkable as visualized. No inflammatory changes. OTHER FINDINGS: None. IMPRESSION: No interval hemorrhage or mass effect. Chronic extensive cerebral hemispheric encephalomalacia changes consistent with remote infarct. Comments: Preliminary report per Vrad compatible with this report.
--- NOTE | 2018-01-22 10:48 | RAD ---
HISTORY: Code Stroke COMPARISON: 01/27/2017 FINDINGS: LUNGS: No active pulmonary disease. PLEURA: No significant pleural effusion identified, no pneumothorax apparent. CARDIOVASCULAR: Normal. OSSEOUS STRUCTURES: No significant abnormalities. VISUALIZED UPPER ABDOMEN: Normal. OTHER FINDINGS: None. IMPRESSION: No active disease.
--- NOTE | 2018-01-22 11:03 | CP.PCM.PN ---
Subjective - Date & Time of Evaluation Date of Evaluation: 01/22/18 Time of Evaluation: 11:01 - Subjective Subjective: Mr. Davis was seen and examined at the bedside. He is alert, oriented with dysarthia. He denies any headache, dizziness, lightheadedness, blurred vision. He is able to follow simple commands. Reflexes are brisk on the left side with upgoing plantar response. Coordination is slightly impaired and sensation is intact to LT/P. CT scan of the head showed no acute findings but a chronic encephalomalacia. There was no untoward events noted. Objective - Vital Signs/Intake and Output Vital Signs (last 24 hours): Temp Pulse Resp BP Pulse Ox 98.1 F 69 18 168/79 H 97 01/22/18 08:06 01/22/18 10:23 01/22/18 08:06 01/22/18 10:23 01/22/18 08:06 - Medications Medications: Current Medications Atorvastatin Calcium (Lipitor) 10 mg PO [facility] Carvedilol (Coreg) 12.5 mg PO BID [facility] Last Admin: 01/22/18 10:23 Dose: 12.5 mg Clopidogrel Bisulfate (Plavix) 75 mg PO DAILY [facility] Last Admin: 01/22/18 10:22 Dose: 75 mg Sodium Chloride (Sodium Chloride 0.9%) 1,000 mls @ 100 mls/hr IV .Q10H [facility] Last Admin: 01/21/18 23:15 Dose: 100 mls/hr Levetiracetam (Keppra) 500 mg PO BID [facility] Last Admin: 01/22/18 10:23 Dose: 500 mg Metformin HCl (Glucophage) 500 mg PO TID [facility] - Labs Labs: 01/21/18 20:02 01/21/18 20:02 PT 10.7 Seconds (9.8-13.1) 01/21/18 20:02 INR 1.0 (0.9-1.2) 01/21/18 20:02 APTT 35.1 Seconds (25.6-37.1) 01/21/18 20:02 - Constitutional Appears: No Acute Distress - Head Exam Head Exam: NORMAL INSPECTION - Eye Exam Pupil Exam: PERRL - Neurological Exam Neurological Exam: Alert, Awake Neuro motor strength exam: Left Upper Extremity: 5, Right Upper Extremity: 4, Left Lower Extremity: 5, Right Lower Extremity: 4 Additional comments: Reflexes are brisk on the left side with upgoing plantar response. Coordination is slightly impaired with FTN and HTS. . Sensation is intact to LT /P. Assessment and Plan (1) TIA (transient ischemic attack) Assessment & Plan: Case discussed with Dr. Braov, continue all current medical, physical, occupational, and speech therapies. Pending MRI of the brain and keppra level results. Status: Acute
--- NOTE | 2018-01-22 12:13 | MRI ---
PROCEDURE: MRI BRAIN WITHOUT CONTRAST HISTORY: TIA. r/o new ischemic infarcts COMPARISON: None. TECHNIQUE: Multiplanar, multisequence MR images of the brain were obtained without intravenous contrast enhancement. FINDINGS: HEMORRHAGE: None DWI: Faint heterogeneous restricted diffusion is identified at the left thin central eyal inferiorly. There are two punctate restricted diffusion foci at the right parietal lobe laterally. The prior findings suggestive of probable acute or subacute lacunar infarcts. Pontine changes either reflect minimal acute or subacute infarcts are early chronic lacunes. BRAIN PARENCHYMA: Gross cystic encephalomalacia is appreciated affecting the mid to posterior right MCA distribution and right [employer] B[employer] distribution inferiorly with periventricular white-matter changes compatible chronic microangiopathy. Diffuse cerebral atrophy is reiterated. There is no significant mass effect. There is no suspicious extra-axial fluid collection identified. VENTRICLES: Unremarkable. No hydrocephalus. CRANIUM: Unremarkable. ORBITS: Grossly unremarkable. PARANASAL SINUSES/MASTOIDS: Clear VASCULAR SYSTEM: Skull base flow voids intact. OTHER FINDINGS: None. IMPRESSION: Limited acute or subacute lacunar infarcts are seen affecting the midline to left inferior eyal as well as right parietal lobe. Gross chronic lobar infarctions anterior middle right MCA distribution, inferior right [employer] BILLER distribution, reiterated. Age related neuro degenerative changes identified once again.
[2018-01-22] MEDS: Cilostazol 100 mg Tab UD PO SCH (17:27)
[2018-01-22] MEDS: Enoxaparin 30 mg Syringe SC SCH (17:27)
[2018-01-22 17:40] LABS: CALCIUM 8.9 mg/dL (8.4-10.2)
--- NOTE | 2018-01-22 19:38 | CP.PCM.HP ---
History of Present Illness - History of Present Illness History of Present Illness: 77 yo admitted for dysarthria and unsteady gait Present on Admission - Present on Admission Any Indicators Present on Admission: No Past Patient History - Past Medical History & Family History Past Medical History?: Yes - Past Social History Smoking Status: Former Smoker - CARDIAC Hx Hypercholesterolemia: Yes Hx Hypertension: Yes - PULMONARY Hx Respiratory Disorders: No - NEUROLOGICAL Hx Seizures: Yes (Focal in 2011) - HEENT Hx HEENT Problems: No - RENAL Hx Chronic Kidney Disease: No - ENDOCRINE/METABOLIC Hx Diabetes Mellitus Type 2: Yes - HEMATOLOGICAL/ONCOLOGICAL Hx Blood Disorders: No Hx AIDS: No Hx Human Immunodeficiency Virus (HIV): No - INTEGUMENTARY Hx Dermatological Problems: No - MUSCULOSKELETAL/RHEUMATOLOGICAL Hx Falls: No Hx Unsteady Gait: Yes - GASTROINTESTINAL Hx Gastrointestinal Disorders: No - GENITOURINARY/GYNECOLOGICAL Hx Genitourinary Disorders: No - PSYCHIATRIC Hx Psychophysiologic Disorder: No Hx Substance Use: No - SURGICAL HISTORY Hx Surgeries: No - ANESTHESIA Hx Anesthesia: No Hx Anesthesia Reactions: No Hx Malignant Hyperthermia: No Has any member of the family had a problem w/ anesthesia?: No Meds Allergies/Adverse Reactions: Allergies Allergy/AdvReac Type Severity Reaction Status Date / Time No Known Allergies Allergy Verified 01/27/17 16:06 Physical Exam - Respiratory Exam Respiratory Exam: NORMAL BREATHING PATTERN - Cardiovascular Exam Cardiovascular Exam: REGULAR RHYTHM - GI/Abdominal Exam GI & Abdominal Exam: Normal Bowel Sounds Results - Vital Signs Recent Vital Signs: Last Vital Signs Temp 98.1 F 01/22/18 19:35 Pulse 69 01/22/18 19:35 Resp 17 01/22/18 19:35 BP 151/73 H 01/22/18 19:35 Pulse Ox 96 01/22/18 19:35 - Labs Result Diagrams: 01/21/18 20:02 01/22/18 17:12 Labs: Laboratory Results - last 24 hr 01/21/18 01/21/18 01/21/18 19:11 20:02 20:02 WBC 7.9 RBC 3.30 L Hgb 9.3 L Hct 27.7 L MCV 84.1 D MCH 28.1 MCHC 33.5 RDW 15.4 H Plt Count 366 MPV 7.0 L Neut % (Auto) 59.5 Lymph % (Auto) 27.4 [place] % (Auto) 8.4 Eos % (Auto) 3.9 Baso % (Auto) 0.8 Neut # (Auto) 4.7 Lymph # (Auto) 2.1 [place] # (Auto) 0.7 Eos # (Auto) 0.3 Baso # (Auto) 0.1 PT INR APTT Sodium 141 Potassium 4.8 Chloride 105 Carbon Dioxide 21 L Anion Gap 20 BUN 23 H Creatinine 1.6 H Est GFR ( Amer) 51 Est GFR (Non-Af Amer) 42 POC Glucose (mg/dL) 160 H Random Glucose 175 H Hemoglobin A1c Calcium 9.0 Phosphorus 3.8 Magnesium 2.0 Total Bilirubin 0.2 AST 27 ALT 26 Alkaline Phosphatase 86 Troponin I < 0.0120 Total Protein 7.3 Albumin 3.7 Globulin 3.6 Albumin/Globulin Ratio 1.0 Triglycerides 201 H D Cholesterol 171 LDL Cholesterol Direct 95 HDL Cholesterol 41 Blood Type Antibody Screen BBK History Checked 01/21/18 01/21/18 01/21/18 20:02 20:02 20:02 WBC RBC Hgb Hct MCV MCH MCHC RDW Plt Count MPV Neut % (Auto) Lymph % (Auto) [place] % (Auto) Eos % (Auto) Baso % (Auto) Neut # (Auto) Lymph # (Auto) [place] # (Auto) Eos # (Auto) Baso # (Auto) PT 10.7 INR 1.0 APTT 35.1 Sodium Potassium Chloride Carbon Dioxide Anion Gap BUN Creatinine Est GFR ( Amer) Est GFR (Non-Af Amer) POC Glucose (mg/dL) Random Glucose Hemoglobin A1c 7.6 H Calcium Phosphorus Magnesium Total Bilirubin AST ALT Alkaline Phosphatase Troponin I Total Protein Albumin Globulin Albumin/Globulin Ratio Triglycerides Cholesterol LDL Cholesterol Direct HDL Cholesterol Blood Type O POSITIVE Antibody Screen Negative BBK History Checked Patient has bt 01/22/18 01/22/18 01/22/18 04:20 05:28 11:25 WBC RBC Hgb Hct MCV MCH MCHC RDW Plt Count MPV Neut % (Auto) Lymph % (Auto) [place] % (Auto) Eos % (Auto) Baso % (Auto) Neut # (Auto) Lymph # (Auto) [place] # (Auto) Eos # (Auto) Baso # (Auto) PT INR APTT Sodium Potassium Chloride Carbon Dioxide Anion Gap BUN Creatinine Est GFR ( Amer) Est GFR (Non-Af Amer) POC Glucose (mg/dL) 105 143 H Random Glucose Hemoglobin A1c Calcium Phosphorus Magnesium Total Bilirubin AST ALT Alkaline Phosphatase Troponin I < 0.0120 Total Protein Albumin Globulin Albumin/Globulin Ratio Triglycerides Cholesterol LDL Cholesterol Direct HDL Cholesterol Blood Type Antibody Screen BBK History Checked 01/22/18 01/22/18 01/22/18 12:20 15:55 17:12 WBC RBC Hgb Hct MCV MCH MCHC RDW Plt Count MPV Neut % (Auto) Lymph % (Auto) [place] % (Auto) Eos % (Auto) Baso % (Auto) Neut # (Auto) Lymph # (Auto) [place] # (Auto) Eos # (Auto) Baso # (Auto) PT INR APTT Sodium 141 Potassium 4.2 Chloride 109 H Carbon Dioxide 21 L Anion Gap 15 BUN 18 Creatinine 1.4 Est GFR ( Amer) 59 Est GFR (Non-Af Amer) 49 POC Glucose (mg/dL) 136 H Random Glucose 129 H Hemoglobin A1c Calcium 8.9 Phosphorus Magnesium Total Bilirubin AST ALT Alkaline Phosphatase Troponin I 0.0120 Total Protein Albumin Globulin Albumin/Globulin Ratio Triglycerides Cholesterol LDL Cholesterol Direct HDL Cholesterol Blood Type Antibody Screen BBK History Checked Assessment & Plan - Assessment and Plan (Free Text) Assessment: TIA ? CVA ? Neuro Cardiology ASA Plavix Anemia Normochromic normocytic etiol? w/u Hypertension Dyslipidemia Diabetes A1c 7.5 Seizure disorder - Date & Time Date: 01/22/18 Time: 22:22
--- NOTE | 2018-01-22 19:39 | CARD ---
APPROVED REPORT EKG Measurement Heart [id number] <Conclusion> Normal sinus rhythm Cannot rule out Anterior infarct, age undetermined Abnormal ECG
[2018-01-23] MEDS: Cilostazol 100 mg Tab UD PO SCH ×2 (08:46→16:10)
[2018-01-23] MEDS: Enoxaparin 30 mg Syringe SC SCH (08:47)
[2018-01-23] MEDS ORDERED: Enoxaparin 30 mg Syringe SC SCH (09:00)
--- NOTE | 2018-01-23 11:02 | CP.PCM.PN ---
Subjective - Date & Time of Evaluation Date of Evaluation: 01/23/18 Time of Evaluation: 11:02 - Subjective Subjective: Mr. Davis was seen and examined at the bedside. He is alert, oriented with mild dysarthia. He denies any headache, dizziness, lightheadedness, blurred vision. He is able to follow simple commands. Reflexes are brisk on the left side with upgoing plantar response. Coordination is slightly impaired and sensation is intact to LT/P.He has mild right side weakness. MRI of the brain showed limited acute or subacute lacunar infarcts are seen affecting the midline to left inferior eyal as well as right parietal lobe. Gross chronic lobar infarctions anterior middle right MCA distribution, inferior right [employer]GER distribution. Age related neuro degenrative changes identified once again. There was no untoward events overnight. Objective - Vital Signs/Intake and Output Vital Signs (last 24 hours): Temp Pulse Resp BP Pulse Ox 98.4 F 69 20 163/80 H 95 01/23/18 08:00 01/23/18 08:45 01/23/18 08:00 01/23/18 08:45 01/23/18 08:00 - Medications Medications: Current Medications Aspirin (Aspirin Chewable) 81 mg PO DAILY [facility] Last Admin: 01/23/18 08:46 Dose: 81 mg Atorvastatin Calcium (Lipitor) 10 mg PO HS [facility] Last Admin: 01/22/18 21:25 Dose: 10 mg Carvedilol (Coreg) 12.5 mg PO BID [facility] Last Admin: 01/23/18 08:45 Dose: 12.5 mg Cilostazol (Pletal) 100 mg PO BID [facility] Last Admin: 01/23/18 08:46 Dose: 100 mg Clopidogrel Bisulfate (Plavix) 75 mg PO DAILY [facility] Last Admin: 01/23/18 08:46 Dose: 75 mg Enoxaparin Sodium (Lovenox) 30 mg SC DAILY [facility] PRN Reason: Protocol Last Admin: 01/23/18 08:47 Dose: 30 mg Sodium Chloride (Sodium Chloride 0.9%) 1,000 mls @ 100 mls/hr IV .Q10H [facility] Last Admin: 01/21/18 23:15 Dose: 100 mls/hr Levetiracetam (Keppra) 500 mg PO BID [facility] Last Admin: 01/23/18 08:44 Dose: 500 mg Metformin HCl (Glucophage) 500 mg PO TID [facility] Last Admin: 01/23/18 08:46 Dose: 500 mg - Labs Labs: 01/21/18 20:02 01/22/18 17:12 PT 10.7 Seconds (9.8-13.1) 01/21/18 20:02 INR 1.0 (0.9-1.2) 01/21/18 20:02 APTT 35.1 Seconds (25.6-37.1) 01/21/18 20:02 - Constitutional Appears: No Acute Distress - Head Exam Head Exam: NORMAL INSPECTION - Neurological Exam Neurological Exam: Alert, Awake, Oriented x3 Neuro motor strength exam: Left Upper Extremity: 5, Right Upper Extremity: 4, Left Lower Extremity: 5, Right Lower Extremity: 5 Additional comments: He is alert, oriented, follows simple commands. Assessment and Plan (1) Ischemic stroke Assessment & Plan: Case discussed with Dr. Bravo, continue all current medical, physical, occupational, and speech therapies. Pending carotid doppler and echocardiogram result. With the new result of MRI, Cilostazol 100 mg PO BID (in addition to Asa ans plavix). I explained to the patient accompanied by in detail the benefit (vasodilatory effect to prevent further strokes) and risk ( bleeding) of cilastazol. All questions answered. The patient along with family chose to start Cilostazol to dec chance or recurrent stroke. Status: Acute
--- NOTE | 2018-01-23 11:11 | US ---
PROCEDURE: Bilateral duplex Doppler carotid arterial ultrasound examination HISTORY: cva COMPARISON: Not available TECHNIQUE: Ultrasound examination of the carotid arteries was performed utilizing a linear array color Doppler transducer. FINDINGS: RIGHT CAROTID ARTERY: Examination of the right carotid artery demonstrates intimal thickening of the mid and distal common carotid artery. There is no appreciable atheromatous plaque seen in the carotid bulb or internal carotid artery. Peak systolic velocity measurements: CCA: 95.1 cm/sec ICA: 94.4 cm/sec ICA/CCA peak systolic velocity ratio: 1.0 Antegrade flow demonstrated in right vertebral artery LEFT CAROTID ARTERY: Examination of the left carotid artery demonstrates intimal thickening throughout the common carotid artery, most prominent in the proximal aspect. There is no significant atheromatous plaque identified in the carotid bulb or internal carotid artery. Peak systolic velocity measurements: CCA: 87.5 cm/sec ICA: 67.2 cm/sec ICA/CCA peak systolic velocity ratio: 0.8 Antegrade flow demonstrated in the left vertebral artery IMPRESSION: Less than 50 percent stenosis of the right and left internal carotid arteries. Evaluation as per the SRU consensus criteria.
[2018-01-23 11:40] LABS: IRON 47 ug/dL (49-181)
[2018-01-23 11:49] LABS: % IRON SATURATION 14 % (20-55); TOTAL IRON BINDING CAPACITY 335 ug/dL (250-450)
[2018-01-23 11:56] LABS: FERRITIN 8.7 ng/Ml (17.9-464)
--- NOTE | 2018-01-23 17:57 | CARD ---
APPROVED REPORT EXAM: Two-dimensional and M-mode echocardiogram with Doppler and color Doppler. Other Information Quality : GoodRhythm : NSR INDICATION CVA/TIA 2D DIMENSIONS IVSd1.61 (0.7-1.1cm)LVDd4.07 (3.9-5.9cm) LVOT Diameter2.27 (1.8-2.4cm)PWd1.13 (0.7-1.1cm) IVSs1.72 (0.8-1.2cm)LVDs2.98 (2.5-4.0cm) FS (%) 26.8 %PWs1.62 (0.8-1.2cm) LVEF (%)55.0 (>50%) M-Mode DIMENSIONS Left Atrium (MM)4.09 (2.5-4.0cm)IVSd1.85 (0.7-1.1cm) Aortic Root3.99 (2.2-3.7cm)LVDd4.45 (4.0-5.6cm) Aortic Cusp Exc.2.26 (1.5-2.0cm)PWd1.42 (0.7-1.1cm) IVSs2.08 cmFS (%) 35 % LVDs2.91 (2.0-3.8cm)PWs1.88 cm Mitral Valve MV E Gmczwhqh23.5cm/sMV DECEL [id number] A Vjcqcpqh65.9cm/s MV HKC56ilO/A ratio0.5MVA (PHT)2.77cm2 TDI Lateral E' Peak V6.11cm/sMedial E' Peak V4.24cm/sE/Lateral E'7.3 E/Medial E'10.5 LEFT VENTRICLE The left ventricle is normal size. There is mild concentric left ventricular hypertrophy. The left ventricular function is normal. The left ventricular ejection fraction is within the normal range. There is normal LV segmental wall motion. Transmitral Doppler flow pattern is Grade I-abnormal relaxation pattern. RIGHT VENTRICLE The right ventricle is normal size. There is normal right ventricular wall thickness. The right ventricular systolic function is normal. ATRIA The left atrium is borderline dilated. The right atrium size is normal. The atrial septum is aneurysmal. AORTIC VALVE The aortic valve is mildly thickened. There is mild aortic regurgitation. There is no aortic valvular stenosis. MITRAL VALVE The mitral valve is normal in structure. There is no mitral valve stenosis. There is no mitral valve regurgitation noted. TRICUSPID VALVE The tricuspid valve is normal in structure. There is no tricuspid valve regurgitation noted. PULMONIC VALVE The pulmonary valve is normal in structure. There is no pulmonic valvular regurgitation. GREAT VESSELS The aortic root is normal in size. The IVC was not visualized. PERICARDIAL EFFUSION The pericardium appears normal. <Conclusion> The left ventricle is normal size. There is mild concentric left ventricular hypertrophy. The left ventricular function is normal. The left ventricular ejection fraction is within the normal range. There is normal LV segmental wall motion. Transmitral Doppler flow pattern is Grade I-abnormal relaxation pattern. The atrial septum is aneurysmal. There is mild aortic regurgitation.
--- NOTE | 2018-01-23 19:12 | CP.PCM.CON ---
History of Present Illness - History of Present Illness History of Present Illness: 77 yo male admitted with possible CVA TIA dehydration. Cardiac evaluation requested. EKG NSR . No evidence of cardiac ischemia clinically or by enzymes. No acute electrocardiographic changes. No c/o of chest pain , sob or palpitations Past Patient History - Past Medical History & Family History Past Medical History?: Yes - Past Social History Smoking Status: Former Smoker - CARDIAC Hx Hypercholesterolemia: Yes Hx Hypertension: Yes - PULMONARY Hx Respiratory Disorders: No - NEUROLOGICAL Hx Seizures: Yes (Focal in 2010) - HEENT Hx HEENT Problems: No - RENAL Hx Chronic Kidney Disease: No - ENDOCRINE/METABOLIC Hx Diabetes Mellitus Type 2: Yes - HEMATOLOGICAL/ONCOLOGICAL Hx Blood Disorders: No Hx AIDS: No Hx Human Immunodeficiency Virus (HIV): No - INTEGUMENTARY Hx Dermatological Problems: No - MUSCULOSKELETAL/RHEUMATOLOGICAL Hx Falls: No Hx Unsteady Gait: Yes - GASTROINTESTINAL Hx Gastrointestinal Disorders: No - GENITOURINARY/GYNECOLOGICAL Hx Genitourinary Disorders: No - PSYCHIATRIC Hx Psychophysiologic Disorder: No Hx Substance Use: No - SURGICAL HISTORY Hx Surgeries: No - ANESTHESIA Hx Anesthesia: No Hx Anesthesia Reactions: No Hx Malignant Hyperthermia: No Has any member of the family had a problem w/ anesthesia?: No Meds Allergies/Adverse Reactions: Allergies Allergy/AdvReac Type Severity Reaction Status Date / Time No Known Allergies Allergy Verified 01/27/17 16:06 - Medications Medications: Current Medications Aspirin (Aspirin Chewable) 81 mg PO DAILY [facility] Last Admin: 01/23/18 08:46 Dose: 81 mg Atorvastatin Calcium (Lipitor) 10 mg PO HS [facility] Last Admin: 01/22/18 21:25 Dose: 10 mg Carvedilol (Coreg) 12.5 mg PO BID [facility] Last Admin: 01/23/18 16:12 Dose: 12.5 mg Cilostazol (Pletal) 100 mg PO BID [facility] Last Admin: 01/23/18 16:10 Dose: 100 mg Clopidogrel Bisulfate (Plavix) 75 mg PO DAILY [facility] Last Admin: 01/23/18 08:46 Dose: 75 mg Enoxaparin Sodium (Lovenox) 30 mg SC DAILY [facility] PRN Reason: Protocol Last Admin: 01/23/18 08:47 Dose: 30 mg Sodium Chloride (Sodium Chloride 0.9%) 1,000 mls @ 100 mls/hr IV .Q10H [facility] Last Admin: 01/21/18 23:15 Dose: 100 mls/hr Levetiracetam (Keppra) 500 mg PO BID [facility] Last Admin: 01/23/18 16:09 Dose: 500 mg Metformin HCl (Glucophage) 500 mg PO TID [facility] Last Admin: 01/23/18 16:08 Dose: 500 mg Physical Exam - Head Exam Head Exam: NORMAL INSPECTION - Neck Exam Neck exam: Positive for: Normal Inspection - Respiratory Exam Respiratory Exam: Clear to Auscultation Bilateral - Cardiovascular Exam Cardiovascular Exam: REGULAR RHYTHM - GI/Abdominal Exam GI & Abdominal Exam: Normal Bowel Sounds - Extremities Exam Extremities exam: Positive for: normal inspection Results - Vital Signs Recent Vital Signs: Last Vital Signs Temp 98.1 F 01/23/18 16:00 Pulse 73 01/23/18 16:12 Resp 18 01/23/18 16:00 BP 135/70 01/23/18 16:12 Pulse Ox 97 01/23/18 16:00 - Labs Result Diagrams: 01/21/18 20:02 01/22/18 17:12 Labs: Laboratory Results - last 24 hr 01/22/18 01/23/18 01/23/18 21:37 06:55 09:47 POC Glucose (mg/dL) 128 H 123 H Iron 47 L TIBC 335 % Saturation 14 L Ferritin Vitamin B12 01/23/18 01/23/18 01/23/18 09:47 11:37 16:15 POC Glucose (mg/dL) 174 H 123 H Iron TIBC % Saturation Ferritin 8.7 L Vitamin B12 703 Assessment & Plan - Assessment and Plan (Free Text) Assessment: ECHOcardiogram is normal no source of cardiac embolism Hypertension is controlled Carotid Duplex with no high grade stenosis Neurology adjusting anticoagulants for further stroke prevention Would Follow CBC closely/ check stool for blood given baseline anemia and increased anticoagulation regimen
--- NOTE | 2018-01-23 21:04 | CP.PCM.PN ---
Subjective - Date & Time of Evaluation Date of Evaluation: 01/23/18 Time of Evaluation: 22:22 - Subjective Subjective: Above noted Objective - Vital Signs/Intake and Output Vital Signs (last 24 hours): Temp Pulse Resp BP Pulse Ox 98.6 F 77 18 132/66 97 01/23/18 20:21 01/23/18 20:21 01/23/18 20:21 01/23/18 20:21 01/23/18 20:21 - Medications Medications: Current Medications Aspirin (Aspirin Chewable) 81 mg PO DAILY [facility] Last Admin: 01/23/18 08:46 Dose: 81 mg Atorvastatin Calcium (Lipitor) 10 mg PO HS [facility] Last Admin: 01/22/18 21:25 Dose: 10 mg Carvedilol (Coreg) 12.5 mg PO BID [facility] Last Admin: 01/23/18 16:12 Dose: 12.5 mg Cilostazol (Pletal) 100 mg PO BID [facility] Last Admin: 01/23/18 16:10 Dose: 100 mg Clopidogrel Bisulfate (Plavix) 75 mg PO DAILY [facility] Last Admin: 01/23/18 08:46 Dose: 75 mg Enoxaparin Sodium (Lovenox) 30 mg SC DAILY [facility] PRN Reason: Protocol Last Admin: 01/23/18 08:47 Dose: 30 mg Sodium Chloride (Sodium Chloride 0.9%) 1,000 mls @ 100 mls/hr IV .Q10H [facility] Last Admin: 01/21/18 23:15 Dose: 100 mls/hr Levetiracetam (Keppra) 500 mg PO BID [facility] Last Admin: 01/23/18 16:09 Dose: 500 mg Metformin HCl (Glucophage) 500 mg PO TID [facility] Last Admin: 01/23/18 16:08 Dose: 500 mg - Labs Labs: 01/21/18 20:02 01/22/18 17:12 PT 10.7 Seconds (9.8-13.1) 01/21/18 20:02 INR 1.0 (0.9-1.2) 01/21/18 20:02 APTT 35.1 Seconds (25.6-37.1) 01/21/18 20:02 - Respiratory Exam Respiratory Exam: NORMAL BREATHING PATTERN - Cardiovascular Exam Cardiovascular Exam: REGULAR RHYTHM - GI/Abdominal Exam GI & Abdominal Exam: Normal Bowel Sounds Assessment and Plan - Assessment and Plan (Free Text) Assessment: TIA ? CVA ? Neuro Cardiology ASA Plavix Pletal W/U in process Anemia Normochromic normocytic etiol? w/u Hypertension Dyslipidemia Diabetes A1c 7.5 Seizure disorder
[2018-01-24] MEDS: Cilostazol 100 mg Tab UD PO SCH ×2 (09:24→16:13)
[2018-01-24] MEDS: Enoxaparin 30 mg Syringe SC SCH (09:25)
--- NOTE | 2018-01-24 09:34 | CP.PCM.PN ---
Subjective - Date & Time of Evaluation Date of Evaluation: 01/24/18 Time of Evaluation: 09:34 - Subjective Subjective: Mr. Davis was seen and examined at the bedside. He is alert, oriented with mild dysarthia. He denies any headache, dizziness, lightheadedness, blurred vision. He is able to follow simple commands. Reflexes are brisk on the left side with upgoing plantar response. Coordination is slightly impaired and sensation is intact to LT/P.He has mild right side weakness. He is able to ambulate within his room with moderate assistance. Echocardiogram showed normal LV size, function, and EF is within normal range. There is mild concentric left ventricular hypertrophy. Carotid ultrasound showed less than 50 % stenosis on bilateral ICA. There was no untoward events overnight. Objective - Vital Signs/Intake and Output Vital Signs (last 24 hours): Temp Pulse Resp BP Pulse Ox 98.2 F 75 20 151/81 H 96 01/24/18 08:00 01/24/18 09:24 01/24/18 08:00 01/24/18 09:24 01/24/18 08:00 - Medications Medications: Current Medications Aspirin (Aspirin Chewable) 81 mg PO DAILY [facility] Last Admin: 01/24/18 09:24 Dose: 81 mg Atorvastatin Calcium (Lipitor) 10 mg PO HS [facility] Last Admin: 01/23/18 21:43 Dose: 10 mg Carvedilol (Coreg) 12.5 mg PO BID [facility] Last Admin: 01/24/18 09:24 Dose: 12.5 mg Cilostazol (Pletal) 100 mg PO BID [facility] Last Admin: 01/24/18 09:24 Dose: 100 mg Clopidogrel Bisulfate (Plavix) 75 mg PO DAILY [facility] Last Admin: 01/24/18 09:24 Dose: 75 mg Enoxaparin Sodium (Lovenox) 30 mg SC DAILY [facility] PRN Reason: Protocol Last Admin: 01/24/18 09:25 Dose: 30 mg Sodium Chloride (Sodium Chloride 0.9%) 1,000 mls @ 100 mls/hr IV .Q10H [facility] Last Admin: 01/21/18 23:15 Dose: 100 mls/hr Levetiracetam (Keppra) 500 mg PO BID [facility] Last Admin: 01/24/18 09:24 Dose: 500 mg Metformin HCl (Glucophage) 500 mg PO TID [facility] Last Admin: 01/24/18 09:24 Dose: 500 mg - Labs Labs: 01/21/18 20:02 01/22/18 17:12 PT 10.7 Seconds (9.8-13.1) 01/21/18 20:02 INR 1.0 (0.9-1.2) 01/21/18 20:02 APTT 35.1 Seconds (25.6-37.1) 01/21/18 20:02 - Constitutional Appears: No Acute Distress - Head Exam Head Exam: NORMAL INSPECTION - Neurological Exam Neurological Exam: Alert, Awake, Oriented x3 Neuro motor strength exam: Left Upper Extremity: 4, Right Upper Extremity: 3, Left Lower Extremity: 4, Right Lower Extremity: 3 Additional comments: Neurological improved from previous examination, his dysarthria is improving. Assessment and Plan (1) Ischemic stroke Assessment & Plan: Case discussed with Dr. Bravo, continue all current medical, physical, and occupational therapies. Recommend rehab for discharge planning. Status: Acute
[2018-01-24 10:47] LABS: HEMOGLOBIN 9.8 g/dL (12.0-18.0); MEAN CELL VOLUME 84.1 fl (80.0-94.0); MEAN CORPUSCULAR HEMOGLOBIN 27.8 pg (27.0-31.0); MEAN CORPUSCULAR HGB CONC 33.1 g/dL (33.0-37.0); RBC 3.51 Mil/uL (4.40-5.90); RED CELL DISTRIBUTION WIDTH 15.6 % (11.5-14.5); WHITE BLOOD COUNT 7.4 K/uL (4.8-10.8)
[2018-01-24 10:59] LABS: CALCIUM 9.3 mg/dL (8.4-10.2)
--- NOTE | 2018-01-24 11:52 | CP.PCM.CON ---
History of Present Illness - History of Present Illness History of Present Illness: 77 year old male with a history of DM, CVA, seizure disorder, admitted with CVA , found to be anemic. The patient reports to seeing blood in the stool from time to time. He thinks he was told he had hemorrhoids in the past. He denies changes in stool caliber but does get constipated sometimes. He denies further abnormal bleeding and bruising. Past medical history: DM, CVA, seizures Past surgical history: None Family history: Denies hematologic and oncologic problems Social history: Former tobacco Allergies: NKA Review of systems: All remaining review of systems including HEENT, cardiovascular, respiratory, gastrointestinal, genitourinary, musculoskeletal, dermatologic, neurologic, and psychiatric are negative unless mentioned in the HPI. Past Patient History - Past Medical History & Family History Past Medical History?: Yes - Past Social History Smoking Status: Former Smoker - CARDIAC Hx Hypercholesterolemia: Yes Hx Hypertension: Yes - PULMONARY Hx Respiratory Disorders: No - NEUROLOGICAL Hx Seizures: Yes (Focal in 2010) - HEENT Hx HEENT Problems: No - RENAL Hx Chronic Kidney Disease: No - ENDOCRINE/METABOLIC Hx Diabetes Mellitus Type 2: Yes - HEMATOLOGICAL/ONCOLOGICAL Hx Blood Disorders: No Hx AIDS: No Hx Human Immunodeficiency Virus (HIV): No - INTEGUMENTARY Hx Dermatological Problems: No - MUSCULOSKELETAL/RHEUMATOLOGICAL Hx Falls: No Hx Unsteady Gait: Yes - GASTROINTESTINAL Hx Gastrointestinal Disorders: No - GENITOURINARY/GYNECOLOGICAL Hx Genitourinary Disorders: No - PSYCHIATRIC Hx Psychophysiologic Disorder: No Hx Substance Use: No - SURGICAL HISTORY Hx Surgeries: No - ANESTHESIA Hx Anesthesia: No Hx Anesthesia Reactions: No Hx Malignant Hyperthermia: No Has any member of the family had a problem w/ anesthesia?: No Meds Home Medications: Home Medication List Medication Instructions Recorded Confirmed Type Aspirin [Aspirin Chewable] 81 mg PO DAILY chew 01/24/18 Rx Cilostazol [Pletal] 100 mg PO BID tab 01/24/18 Rx Enoxaparin [Lovenox] 30 mg SC DAILY syr 01/24/18 Rx Allergies/Adverse Reactions: Allergies Allergy/AdvReac Type Severity Reaction Status Date / Time No Known Allergies Allergy Verified 01/27/17 16:06 - Medications Medications: Current Medications Aspirin (Aspirin Chewable) 81 mg PO DAILY [facility] Last Admin: 01/24/18 09:24 Dose: 81 mg Atorvastatin Calcium (Lipitor) 10 mg PO HS [facility] Last Admin: 01/23/18 21:43 Dose: 10 mg Carvedilol (Coreg) 12.5 mg PO BID [facility] Last Admin: 01/24/18 09:24 Dose: 12.5 mg Cilostazol (Pletal) 100 mg PO BID [facility] Last Admin: 01/24/18 09:24 Dose: 100 mg Clopidogrel Bisulfate (Plavix) 75 mg PO DAILY [facility] Last Admin: 01/24/18 09:24 Dose: 75 mg Enoxaparin Sodium (Lovenox) 30 mg SC DAILY [facility] PRN Reason: Protocol Last Admin: 01/24/18 09:25 Dose: 30 mg Sodium Chloride (Sodium Chloride 0.9%) 1,000 mls @ 100 mls/hr IV .Q10H [facility] Last Admin: 01/21/18 23:15 Dose: 100 mls/hr Levetiracetam (Keppra) 500 mg PO BID [facility] Last Admin: 01/24/18 09:24 Dose: 500 mg Metformin HCl (Glucophage) 500 mg PO TID [facility] Last Admin: 01/24/18 09:24 Dose: 500 mg Ondansetron HCl (Zofran Odt) 4 mg PO Q8H PRN PRN Reason: Nausea/Vomiting Physical Exam - Head Exam Head Exam: ATRAUMATIC - Eye Exam Eye Exam: Normal appearance - ENT Exam ENT Exam: Mucous Membranes Dry - Respiratory Exam Respiratory Exam: NORMAL BREATHING PATTERN - Cardiovascular Exam Cardiovascular Exam: +S1, +S2 - GI/Abdominal Exam GI & Abdominal Exam: Normal Bowel Sounds - Neurological Exam Neurological exam: Oriented x3 - Psychiatric Exam Psychiatric exam: Normal Affect, Normal Mood - Skin Skin Exam: Warm Results - Vital Signs Recent Vital Signs: Last Vital Signs Temp 98.2 F 01/24/18 08:00 Pulse 75 01/24/18 09:24 Resp 20 01/24/18 08:00 BP 151/81 H 01/24/18 09:24 Pulse Ox 96 01/24/18 08:00 - Labs Result Diagrams: 01/24/18 10:10 01/24/18 10:10 Labs: Laboratory Results - last 24 hr 01/23/18 01/23/18 01/23/18 09:47 16:15 21:11 WBC RBC Hgb Hct MCV MCH MCHC RDW Plt Count Sodium Potassium Chloride Carbon Dioxide Anion Gap BUN Creatinine Est GFR ( Amer) Est GFR (Non-Af Amer) POC Glucose (mg/dL) 123 H 127 H Random Glucose Calcium Ferritin 8.7 L Vitamin B12 703 01/24/18 01/24/18 01/24/18 06:39 10:10 10:10 WBC 7.4 RBC 3.51 L Hgb 9.8 L Hct 29.5 L MCV 84.1 MCH 27.8 MCHC 33.1 RDW 15.6 H Plt Count 373 Sodium 144 Potassium 4.1 Chloride 107 Carbon Dioxide 20 L Anion Gap 21 H BUN 19 Creatinine 1.7 H Est GFR ( Amer) 48 Est GFR (Non-Af Amer) 39 POC Glucose (mg/dL) 119 H Random Glucose 137 H Calcium 9.3 Ferritin Vitamin B12 Assessment & Plan (1) Anemia Assessment and Plan: work up consistent with iron deficiency anemia likely chronic GI blood loss will give a dose of IV iron before transfer to rehab outpatient GI w/u Thank you for this interesting consult. Status: Acute
[2018-01-24 15:29] VITALS: BP 135/74; PULSE 79; RESP 20; TEMP 98.4
--- NOTE | 2018-01-24 18:33 | CP.PCM.PN ---
Subjective - Date & Time of Evaluation Date of Evaluation: 01/24/18 Time of Evaluation: 22:22 - Subjective Subjective: Above noted Objective - Vital Signs/Intake and Output Vital Signs (last 24 hours): Temp Pulse Resp BP Pulse Ox 98.4 F 79 20 135/74 92 L 01/24/18 15:29 01/24/18 16:13 01/24/18 15:29 01/24/18 16:13 01/24/18 15:29 - Labs Labs: 01/24/18 10:10 01/24/18 10:10 PT 10.7 Seconds (9.8-13.1) 01/21/18 20:02 INR 1.0 (0.9-1.2) 01/21/18 20:02 APTT 35.1 Seconds (25.6-37.1) 01/21/18 20:02 - Respiratory Exam Respiratory Exam: NORMAL BREATHING PATTERN - Cardiovascular Exam Cardiovascular Exam: REGULAR RHYTHM - GI/Abdominal Exam GI & Abdominal Exam: Normal Bowel Sounds Assessment and Plan - Assessment and Plan (Free Text) Assessment: TIA CVA ? Neuro Cardiology ASA Plavix Pletal W/U in process Anemia Normochromic normocytic etiol? w/u ordered Hematology Hypertension Dyslipidemia Diabetes A1c 7.5 Seizure disorder
--- NOTE | 2018-01-26 20:38 | CP.PCM.HP ---
Past Patient History - Past Medical History & Family History Past Medical History?: Yes - Past Social History Smoking Status: Former Smoker - CARDIAC Hx Hypercholesterolemia: Yes Hx Hypertension: Yes - PULMONARY Hx Respiratory Disorders: No - NEUROLOGICAL Hx Seizures: Yes (Focal in 2010) - HEENT Hx HEENT Problems: No - RENAL Hx Chronic Kidney Disease: No - ENDOCRINE/METABOLIC Hx Diabetes Mellitus Type 2: Yes - HEMATOLOGICAL/ONCOLOGICAL Hx Blood Disorders: No Hx AIDS: No Hx Human Immunodeficiency Virus (HIV): No - INTEGUMENTARY Hx Dermatological Problems: No - MUSCULOSKELETAL/RHEUMATOLOGICAL Hx Falls: No Hx Unsteady Gait: Yes - GASTROINTESTINAL Hx Gastrointestinal Disorders: No - GENITOURINARY/GYNECOLOGICAL Hx Genitourinary Disorders: No - PSYCHIATRIC Hx Psychophysiologic Disorder: No Hx Substance Use: No - SURGICAL HISTORY Hx Surgeries: No - ANESTHESIA Hx Anesthesia: No Hx Anesthesia Reactions: No Hx Malignant Hyperthermia: No Has any member of the family had a problem w/ anesthesia?: No Meds Home Medications: Home Medication List Medication Instructions Recorded Confirmed Type Aspirin [Aspirin Chewable] 81 mg PO DAILY chew 01/24/18 Rx Cilostazol [Pletal] 100 mg PO BID tab 01/24/18 Rx Enoxaparin [Lovenox] 30 mg SC DAILY syr 01/24/18 Rx Allergies/Adverse Reactions: Allergies Allergy/AdvReac Type Severity Reaction Status Date / Time No Known Allergies Allergy Verified 01/27/17 16:06 Results - Vital Signs Recent Vital Signs: Last Vital Signs Temp 98.4 F 01/24/18 15:29 Pulse 79 01/24/18 16:13 Resp 20 01/24/18 15:29 BP 135/74 01/24/18 16:13 Pulse Ox 92 L 01/24/18 15:29 - Labs Result Diagrams: 01/24/18 10:10 01/24/18 10:10 Assessment & Plan - Assessment and Plan (Free Text) Assessment: TIA CVA ? Neuro Cardiology ASA Plavix Pletal W/U in process Anemia Normochromic normocytic etiol? w/u ordered Hematology Hypertension Dyslipidemia Diabetes A1c 7.5 Seizure disorder - Date & Time Date: 01/26/18 Time: 22:22
--- NOTE | 2018-01-29 14:59 | PQF CVATIA ---
Dr. Moreno pt was admitted with CVA/TIA. If known what is the final diagnosis for this case? This form is a permanent part of the medical record Clarification of your documentation is requested to better reflect the severity of illness and intensity of treatment of your patient. Indicators present: [] Altered mental status [] Aphasia [] Dysphagia [] Dysphasia [] Facial droop/numbness [] Gait disturbance [] Hemiparesis/plegia [] Speech impairment [x] Weakness [] Neuro Consult [] CT/MRI Findings [] Other: [] Location in the medical record that reflects the above clinical findings: [] Treatment Provided: [] PHYSICIAN'S RESPONSE Based on your medical judgment of the clinical indicators outlined above, are you treating this patient for a known or suspected: [] Acute Cerebrovascular Accident (CVA) Please specify type i.e.; embolic, hemorrhagic, ischemic. Please specify the artery involved if known. [] Transient Ischemic Accident (TIA) [] Prolonged reversible ischemic neurological disorder [] Other, please indicate: [] [] If unable to determine, please check the box, sign and date. Present On Admission (POA) Indicator: [] Present at the time of admission [] Not present at the time of admission [] Clinically Undetermined In responding to this query, please exercise your independent professional judgment. The fact that a question is asked does not imply that any particular answer is desired or expected. Thank you for your clarification on this documentation. If you have any questions please call:[ ] * Thank you, [ ]Rebecca Benítez bible reader LADAN
[2018-02-01 01:13] VITALS: O2SAT 98
== END 2018-01-24 16:20 | DRG 66 ==
LOC: H.ER 19:02 → H.ERHOLD 21:48 → H.TEL 23:10 → OBSVTOIN 01-22 13:00
PROVIDERS: ADMIT Family Medicine Geriatric Medicine; ATTEND Family Medicine Geriatric Medicine
PROC: 3E0234Z Introduction of Serum, Toxoid and Vaccine into Muscle, Percutaneous Approach (ICD-10-PCS; principal; 2018-01-22)
DX: I63.9 Cerebral infarction, unspecified (principal); Z23 Encounter for immunization; Z86.73 Personal history of transient ischemic attack (TIA), and cerebral infarction without residual deficits; E11.9 Type 2 diabetes mellitus without complications; I10 Essential (primary) hypertension; E78.00 Pure hypercholesterolemia, unspecified; Z87.891 Personal history of nicotine dependence; G93.89 Other specified disorders of brain; E86.0 Dehydration; G40.909 Epilepsy, unspecified, not intractable, without status epilepticus; E78.5 Hyperlipidemia, unspecified; D50.0 Iron deficiency anemia secondary to blood loss (chronic); R47.1 Dysarthria and anarthria; R26.81 Unsteadiness on feet

== ENCOUNTER 2018-01-24 13:08 | Inpatient (IN) | payer MEDICARE ==
[2018-01-24 15:09] VITALS: BMI 25.1
[2018-01-24] MEDS: Cilostazol 100 mg Tab UD PO SCH (18:51)
--- NOTE | 2018-01-24 21:52 | CP.PCM.CON ---
History of Present Illness - History of Present Illness History of Present Illness: 77 year old male admitted with diagnosis of CVA, with other history of Htn, hyperlipidemia, seizure disorder,and anemia for acute inpatient rehab Review of Systems - Musculoskeletal Musculoskeletal: Muscle Weakness - Neurological Neurological: Abnormal Gait, Abnormal Speech, Lack of Coordination Past Patient History - Past Medical History & Family History Past Medical History?: Yes - Past Social History Smoking Status: Former Smoker - CARDIAC Hx Hypercholesterolemia: Yes Hx Hypertension: Yes - PULMONARY Hx Respiratory Disorders: No - NEUROLOGICAL Hx Seizures: Yes (Focal in 2010) - HEENT Hx HEENT Problems: No - RENAL Hx Chronic Kidney Disease: No - ENDOCRINE/METABOLIC Hx Diabetes Mellitus Type 2: Yes - HEMATOLOGICAL/ONCOLOGICAL Hx Blood Disorders: No Hx AIDS: No Hx Human Immunodeficiency Virus (HIV): No - INTEGUMENTARY Hx Dermatological Problems: No - MUSCULOSKELETAL/RHEUMATOLOGICAL Hx Falls: No - GASTROINTESTINAL Hx Gastrointestinal Disorders: No - GENITOURINARY/GYNECOLOGICAL Hx Genitourinary Disorders: No - PSYCHIATRIC Hx Substance Use: No - SURGICAL HISTORY Hx Surgeries: No - ANESTHESIA Hx Anesthesia: No Hx Anesthesia Reactions: No Hx Malignant Hyperthermia: No Meds Allergies/Adverse Reactions: Allergies Allergy/AdvReac Type Severity Reaction Status Date / Time No Known Allergies Allergy Verified 01/27/17 16:06 - Medications Medications: Current Medications Aspirin (Aspirin Chewable) 81 mg PO DAILY [facility] Atorvastatin Calcium (Lipitor) 10 mg PO HS [facility] Carvedilol (Coreg) 12.5 mg PO BID [facility] Last Admin: 01/24/18 18:51 Dose: 12.5 mg Cilostazol (Pletal) 100 mg PO BID [facility] Last Admin: 01/24/18 18:51 Dose: 100 mg Clopidogrel Bisulfate (Plavix) 75 mg PO DAILY [facility] Enoxaparin Sodium (Lovenox) 30 mg SC DAILY [facility] PRN Reason: Protocol Levetiracetam (Keppra) 500 mg PO BID [facility] Last Admin: 01/24/18 18:51 Dose: 500 mg Metformin HCl (Glucophage) 500 mg PO TID [facility] Last Admin: 01/24/18 18:51 Dose: 500 mg Physical Exam - Head Exam Head Exam: ATRAUMATIC, NORMAL INSPECTION, NORMOCEPHALIC - Eye Exam Eye Exam: EOMI, Normal appearance Pupil Exam: NORMAL ACCOMODATION, PERRL - ENT Exam ENT Exam: Mucous Membranes Moist, Normal Exam - Neck Exam Neck exam: Positive for: Normal Inspection - Respiratory Exam Respiratory Exam: Clear to Auscultation Bilateral, NORMAL BREATHING PATTERN - Cardiovascular Exam Cardiovascular Exam: REGULAR RHYTHM - GI/Abdominal Exam GI & Abdominal Exam: Normal Bowel Sounds - Rectal Exam Rectal Exam: NORMAL INSPECTION - Exam External exam: NORMAL EXTERNAL EXAM - Extremities Exam Extremities exam: Positive for: normal inspection Additional comments: patient with left sided weakness and problems with slurred speech, problem with strength and coordination - Back Exam Back exam: NORMAL INSPECTION - Neurological Exam Neurological exam: Alert Additional comments: muscle weakness - Psychiatric Exam Psychiatric exam: Normal Affect Results - Vital Signs Recent Vital Signs: Last Vital Signs Temp 97.7 F 01/24/18 20:03 Pulse 78 01/24/18 20:03 Resp 20 01/24/18 20:03 BP 143/77 01/24/18 20:03 Pulse Ox 99 01/24/18 20:03 Assessment & Plan (1) Dehydration Status: Acute Priority: High (2) Ischemic stroke Status: Acute (3) TIA (transient ischemic attack) Assessment and Plan: patient with diagnosis of Cva, htn, Dm , anaemia and hyperlipidemia admitted for acute rehab. Plan for physical, occupational, rec and speech therapy. to write overall plan of care for patient Covering for Status: Acute
--- NOTE | 2018-01-24 21:58 | PCM.OPOC ---
Physiatry Overall Plan of Care - Overall Plan of Care Estimated Length of Stay in Weeks: 3 Rehab Impairment: Mobility, Gait, Speech, Balance, Coordination Etiologic Diagnosis: Cerebrovascular Accident Rehab/Medical Prognosis: Fair - Anticipated Interventions Physical Therapy:: Yes Occupational Therapy:: Yes Speech Therapy:: Yes Recreational Therapy:: Yes - Therapy Goals Bed Mobility: Independent Ambulation: Supervision Functional Positional Changes:: Independent - Functional Outcomes Functional Outcomes: fair - Discharge Plan Identification of Barriers to Discharge: Home Situation Discharge Destination: Home
[2018-01-25] MEDS: Cilostazol 100 mg Tab UD PO SCH ×2 (08:40→16:25)
[2018-01-25] MEDS: Enoxaparin 30 mg Syringe SC SCH (08:40)
--- NOTE | 2018-01-25 11:31 | CP.PCM.PN ---
Subjective - Date & Time of Evaluation Date of Evaluation: 01/25/18 Time of Evaluation: 11:05 - Subjective Subjective: no acute complaints Objective - Vital Signs/Intake and Output Vital Signs (last 24 hours): Temp Pulse Resp BP Pulse Ox 97.7 F 81 18 126/73 96 01/25/18 07:50 01/25/18 08:40 01/25/18 07:50 01/25/18 08:40 01/25/18 08:18 - Medications Medications: Current Medications Aspirin (Aspirin Chewable) 81 mg PO DAILY [facility] Last Admin: 01/25/18 08:39 Dose: 81 mg Atorvastatin Calcium (Lipitor) 10 mg PO HS [facility] Last Admin: 01/24/18 22:09 Dose: 10 mg Carvedilol (Coreg) 12.5 mg PO BID [facility] Last Admin: 01/25/18 08:40 Dose: 12.5 mg Cilostazol (Pletal) 100 mg PO BID [facility] Last Admin: 01/25/18 08:40 Dose: 100 mg Clopidogrel Bisulfate (Plavix) 75 mg PO DAILY [facility] Last Admin: 01/25/18 08:39 Dose: 75 mg Enoxaparin Sodium (Lovenox) 30 mg SC DAILY [facility] PRN Reason: Protocol Last Admin: 01/25/18 08:40 Dose: 30 mg Levetiracetam (Keppra) 500 mg PO BID [facility] Last Admin: 01/25/18 08:41 Dose: 500 mg Metformin HCl (Glucophage) 500 mg PO TID [facility] Last Admin: 01/25/18 08:40 Dose: 500 mg - Head Exam Head Exam: ATRAUMATIC, NORMAL INSPECTION, NORMOCEPHALIC - Eye Exam Eye Exam: EOMI, Normal appearance, PERRL Pupil Exam: NORMAL ACCOMODATION - ENT Exam ENT Exam: Mucous Membranes Moist, Normal Exam - Neck Exam Neck Exam: Normal Inspection - Respiratory Exam Respiratory Exam: NORMAL BREATHING PATTERN - Cardiovascular Exam Cardiovascular Exam: REGULAR RHYTHM - GI/Abdominal Exam GI & Abdominal Exam: Soft, Normal Bowel Sounds - Rectal Exam Rectal Exam: NORMAL INSPECTION - Exam External exam: NORMAL EXTERNAL EXAM - Extremities Exam Extremities Exam: Full ROM, Normal Capillary Refill - Back Exam Back Exam: NORMAL INSPECTION - Neurological Exam Neurological Exam: Alert, Awake Neuro motor strength exam: Left Upper Extremity: 4, Right Upper Extremity: 4, Left Lower Extremity: 4, Right Lower Extremity: 4 - Psychiatric Exam Psychiatric exam: Normal Affect, Normal Mood - Skin Skin Exam: Dry, Intact Assessment and Plan (1) Dehydration Status: Acute (2) Ischemic stroke Status: Acute (3) TIA (transient ischemic attack) Assessment & Plan: pt, ot rec speech therapy covering for Dr desai Status: Acute
--- NOTE | 2018-01-25 14:22 | CP.PCM.CON ---
History of Present Illness - History of Present Illness History of Present Illness: Mr. Davis is a 77-year-old man with a past medical history of HTN, HLD, previous large right MCA stroke, seizure disorder, who I know from previous admissions, and had recovered well from the previous stroke, but was brought in by his after he developed worsening slurred speech and gait instability for several days. MRI of the brain showed a left pontine acute ischemic stroke. He was managed acutely and started on cilostazol in addition to aspirin and Plavix, since he had a subsequent small vessel ischemic stroke despite being on antiplatelet agents. The increased risks of bleeding with triple therapy were explained to the patient and his and they agreed to proceed in order to avoid further ischemic strokes. Review of Systems - Review of Systems All systems: reviewed and no additional remarkable complaints except Past Patient History - Past Medical History & Family History Past Medical History?: Yes - Past Social History Smoking Status: Former Smoker - CARDIAC Hx Hypercholesterolemia: Yes Hx Hypertension: Yes - PULMONARY Hx Respiratory Disorders: No - NEUROLOGICAL Hx Seizures: Yes (Focal in 2010) - HEENT Hx HEENT Problems: No - RENAL Hx Chronic Kidney Disease: No - ENDOCRINE/METABOLIC Hx Diabetes Mellitus Type 2: Yes - HEMATOLOGICAL/ONCOLOGICAL Hx Blood Disorders: No Hx AIDS: No Hx Human Immunodeficiency Virus (HIV): No - INTEGUMENTARY Hx Dermatological Problems: No - MUSCULOSKELETAL/RHEUMATOLOGICAL Hx Falls: No - GASTROINTESTINAL Hx Gastrointestinal Disorders: No - GENITOURINARY/GYNECOLOGICAL Hx Genitourinary Disorders: No - PSYCHIATRIC Hx Substance Use: No - SURGICAL HISTORY Hx Surgeries: No - ANESTHESIA Hx Anesthesia: No Hx Anesthesia Reactions: No Hx Malignant Hyperthermia: No Meds Allergies/Adverse Reactions: Allergies Allergy/AdvReac Type Severity Reaction Status Date / Time No Known Allergies Allergy Verified 01/27/17 16:06 - Medications Medications: Current Medications Aspirin (Aspirin Chewable) 81 mg PO DAILY [facility] Last Admin: 01/25/18 08:39 Dose: 81 mg Atorvastatin Calcium (Lipitor) 10 mg PO HS [facility] Last Admin: 01/24/18 22:09 Dose: 10 mg Carvedilol (Coreg) 12.5 mg PO BID [facility] Last Admin: 01/25/18 08:40 Dose: 12.5 mg Cilostazol (Pletal) 100 mg PO BID [facility] Last Admin: 01/25/18 08:40 Dose: 100 mg Clopidogrel Bisulfate (Plavix) 75 mg PO DAILY [facility] Last Admin: 01/25/18 08:39 Dose: 75 mg Enoxaparin Sodium (Lovenox) 30 mg SC DAILY [facility] PRN Reason: Protocol Last Admin: 01/25/18 08:40 Dose: 30 mg Levetiracetam (Keppra) 500 mg PO BID [facility] Last Admin: 01/25/18 08:41 Dose: 500 mg Metformin HCl (Glucophage) 500 mg PO TID [facility] Last Admin: 01/25/18 12:04 Dose: 500 mg Physical Exam - Constitutional Appears: Well - Head Exam Head Exam: ATRAUMATIC, NORMAL INSPECTION, NORMOCEPHALIC - Eye Exam Eye Exam: EOMI, Normal appearance, PERRL - ENT Exam ENT Exam: Mucous Membranes Moist, Normal Exam - Neck Exam Neck exam: Positive for: Normal Inspection - Respiratory Exam Respiratory Exam: Clear to Auscultation Bilateral, NORMAL BREATHING PATTERN - Cardiovascular Exam Cardiovascular Exam: REGULAR RHYTHM - GI/Abdominal Exam GI & Abdominal Exam: Normal Bowel Sounds, Soft. absent: Tenderness - Rectal Exam Rectal Exam: Deferred - Neurological Exam Neurological exam: Abnormal Gait, Alert, CN II-XII Intact, Oriented x3 Additional comments: He is dysarthric, but not aphasic. Right side hemiplegia involving the leg more than the arm with 3/5 strength in the leg and 4/5 strength in the arm. Left upper and lower extremities are full in strength. Reflexes are brisk on the right with upgoing plantar response. NIHSS = 6 Results - Vital Signs Recent Vital Signs: Last Vital Signs Temp 97.7 F 01/25/18 07:50 Pulse 81 01/25/18 08:40 Resp 18 01/25/18 07:50 BP 126/73 01/25/18 08:40 Pulse Ox 96 01/25/18 08:18 - Labs Labs: Laboratory Results - last 24 hr 01/24/18 01/25/18 20:34 06:10 POC Glucose (mg/dL) 144 H 120 H Assessment & Plan (1) Ischemic stroke Assessment and Plan: The patient will require acute rehab in order to improve from the pontine infarct. Continue current medications, and follow protocol per the rehab team for neuro-checks, and monitoring. Neurology will follow. Thank you. Status: Acute Priority: High
[2018-01-26] MEDS: Enoxaparin 30 mg Syringe SC SCH (08:45)
[2018-01-26] MEDS: Cilostazol 100 mg Tab UD PO SCH ×2 (08:45→16:59)
[2018-01-26] MEDS: Pantoprazole 40 mg EC Tab PO SCH (08:46)
--- NOTE | 2018-01-26 20:39 | CP.PCM.HP ---
History of Present Illness - History of Present Illness History of Present Illness: 77 yo admitted following an acute L pontine CVA Present on Admission - Present on Admission Any Indicators Present on Admission: No Past Patient History - Past Medical History & Family History Past Medical History?: Yes - Past Social History Smoking Status: Former Smoker - CARDIAC Hx Hypercholesterolemia: Yes Hx Hypertension: Yes - PULMONARY Hx Respiratory Disorders: No - NEUROLOGICAL Hx Seizures: Yes (Focal in 2010) - HEENT Hx HEENT Problems: No - RENAL Hx Chronic Kidney Disease: No - ENDOCRINE/METABOLIC Hx Diabetes Mellitus Type 2: Yes - HEMATOLOGICAL/ONCOLOGICAL Hx Blood Disorders: No Hx AIDS: No Hx Human Immunodeficiency Virus (HIV): No - INTEGUMENTARY Hx Dermatological Problems: No - MUSCULOSKELETAL/RHEUMATOLOGICAL Hx Falls: No - GASTROINTESTINAL Hx Gastrointestinal Disorders: No - GENITOURINARY/GYNECOLOGICAL Hx Genitourinary Disorders: No - PSYCHIATRIC Hx Substance Use: No - SURGICAL HISTORY Hx Surgeries: No - ANESTHESIA Hx Anesthesia: No Hx Anesthesia Reactions: No Hx Malignant Hyperthermia: No Meds Allergies/Adverse Reactions: Allergies Allergy/AdvReac Type Severity Reaction Status Date / Time No Known Allergies Allergy Verified 01/27/17 16:06 Results - Vital Signs Recent Vital Signs: Last Vital Signs Temp 97.7 F 01/26/18 07:52 Pulse 93 H 01/26/18 16:59 Resp 20 01/26/18 07:52 BP 152/84 H 01/26/18 16:59 Pulse Ox 98 01/26/18 07:52 - Labs Labs: Laboratory Results - last 24 hr 01/25/18 01/26/18 01/26/18 20:55 06:02 11:24 POC Glucose (mg/dL) 131 H 109 174 H 01/26/18 16:41 POC Glucose (mg/dL) 129 H Assessment & Plan - Assessment and Plan (Free Text) Assessment: Acute L Pontine ischemic CVA Hx L MCA CVA Neuro Cardiology ASA Plavix Pletal Anemia Normochromic normocytic etiol? w/u ordered Hematology Hypertension Dyslipidemia Diabetes A1c 7.5 Seizure disorder - Date & Time Date: 01/26/18 Time: 22:22
[2018-01-27] MEDS: Enoxaparin 30 mg Syringe SC SCH (09:04)
[2018-01-27] MEDS: Pantoprazole 40 mg EC Tab PO SCH (09:05)
[2018-01-27] MEDS: Cilostazol 100 mg Tab UD PO SCH ×2 (09:05→17:04)
--- NOTE | 2018-01-27 10:17 | CP.PCM.PN ---
Subjective - Date & Time of Evaluation Date of Evaluation: 01/27/18 Time of Evaluation: 10:15 - Subjective Subjective: Mr. Davis was seen and examined at the bedside. He is alert, oriented with mild dysarthia. He denies any headache, dizziness, lightheadedness, blurred vision. He is able to follow simple commands. Coordination is slightly impaired and sensation is intact to LT/P. He has mild right side weakness. He is requesting to step up his fluid status. Explained to the patient that depending to the evaluation of speech therapist and with no s/s aspiration is some of criteria to improve diet. There was no untoward events overnight. Objective - Vital Signs/Intake and Output Vital Signs (last 24 hours): Temp Pulse Resp BP Pulse Ox 97.0 F L 87 19 158/86 H 96 01/27/18 08:11 01/27/18 09:03 01/27/18 08:11 01/27/18 09:03 01/27/18 08:11 - Medications Medications: Current Medications Aspirin (Aspirin Chewable) 81 mg PO DAILY [facility] Last Admin: 01/27/18 09:03 Dose: 81 mg Atorvastatin Calcium (Lipitor) 10 mg PO HS [facility] Last Admin: 01/26/18 22:12 Dose: 10 mg Carvedilol (Coreg) 12.5 mg PO BID [facility] Last Admin: 01/27/18 09:03 Dose: 12.5 mg Cilostazol (Pletal) 100 mg PO BID [facility] Last Admin: 01/27/18 09:05 Dose: 100 mg Clopidogrel Bisulfate (Plavix) 75 mg PO DAILY [facility] Last Admin: 01/26/18 08:46 Dose: 75 mg Enoxaparin Sodium (Lovenox) 30 mg SC DAILY [facility] PRN Reason: Protocol Last Admin: 01/27/18 09:04 Dose: 30 mg Iron Sucrose 200 mg/ Sodium (Chloride) 110 mls @ 110 mls/hr IVPB DAILY@0600 [facility] Last Admin: 01/27/18 05:55 Dose: 110 mls/hr Levetiracetam (Keppra) 500 mg PO BID [facility] Last Admin: 01/27/18 09:04 Dose: 500 mg Metformin HCl (Glucophage) 500 mg PO TID [facility] Last Admin: 01/27/18 09:04 Dose: 500 mg Pantoprazole Sodium (Protonix Ec Tab) 40 mg PO DAILY [facility] Last Admin: 01/27/18 09:05 Dose: 40 mg - Constitutional Appears: No Acute Distress - Head Exam Head Exam: NORMAL INSPECTION - Neurological Exam Neurological Exam: Alert, Awake, Oriented x3 Neuro motor strength exam: Left Upper Extremity: 5, Right Upper Extremity: 4, Left Lower Extremity: 5, Right Lower Extremity: 4 Additional comments: Neurological unchanged from previous examination. Assessment and Plan (1) Ischemic stroke Assessment & Plan: Case discussed with Dr. Duran, continue all current medical, physical, occupational, and speech therapies. There is no new recommendation from neurology. Status: Acute
[2018-01-27 11:49] LABS: HEMOGLOBIN 8.9 g/dL (12.0-18.0); MEAN CELL VOLUME 83.9 fl (80.0-94.0); MEAN CORPUSCULAR HGB CONC 33.4 g/dL (33.0-37.0); RBC 3.17 Mil/uL (4.40-5.90); RED CELL DISTRIBUTION WIDTH 16.1 % (11.5-14.5); WHITE BLOOD COUNT 7.4 K/uL (4.8-10.8)
[2018-01-27 12:19] LABS: CALCIUM 9.4 mg/dL (8.4-10.2)
[2018-01-27] MEDS ORDERED: Barium Sulfate Susp 0.1% w/v, 0.1% w/w 450 mL Bottle PO ONE (14:38)
--- NOTE | 2018-01-27 16:10 | RAD ---
PROCEDURE: Modified barium swallow study. HISTORY: coughing episodes while eating COMPARISON: None available. TECHNIQUE: Under fluoroscopic guidance, barium meals of various consistency were administered to the patient by the speech pathologist. 75.8 seconds of fluoro time was utilized with a total cumulative DLP dose of 3.95 mGy. FINDINGS: No aspiration was observed during this study. Trace penetration occurred in 1 out of 4 thin liquid swallows and there is some minimal oral delay in this patient. Remainder the examination was unremarkable. IMPRESSION: Trace solitary penetration occurred during this entire exam but no aspiration was observed. Please refer to the detailed report and recommendations of the speech pathologist.
--- NOTE | 2018-01-27 18:21 | CP.PCM.PN ---
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 which has lead to joint limitations NAD continue with current care ambulating 100' with SC Objective - Vital Signs/Intake and Output Vital Signs (last 24 hours): Temp Pulse Resp BP Pulse Ox 97.0 F L 102 H 19 143/94 H 96 01/27/18 08:11 01/27/18 17:04 01/27/18 08:11 01/27/18 17:04 01/27/18 10:25 - Medications Medications: Current Medications Aspirin (Aspirin Chewable) 81 mg PO DAILY [facility] Last Admin: 01/27/18 09:03 Dose: 81 mg Atorvastatin Calcium (Lipitor) 10 mg PO HS [facility] Last Admin: 01/26/18 22:12 Dose: 10 mg Carvedilol (Coreg) 12.5 mg PO BID [facility] Last Admin: 01/27/18 17:04 Dose: 12.5 mg Cilostazol (Pletal) 100 mg PO BID [facility] Last Admin: 01/27/18 17:04 Dose: 100 mg Clopidogrel Bisulfate (Plavix) 75 mg PO DAILY [facility] Last Admin: 01/27/18 12:26 Dose: 75 mg Enoxaparin Sodium (Lovenox) 30 mg SC DAILY [facility] PRN Reason: Protocol Last Admin: 01/27/18 09:04 Dose: 30 mg Iron Sucrose 200 mg/ Sodium (Chloride) 110 mls @ 110 mls/hr IVPB DAILY@0600 [facility] Last Admin: 01/27/18 05:55 Dose: 110 mls/hr Levetiracetam (Keppra) 500 mg PO BID [facility] Last Admin: 01/27/18 17:04 Dose: 500 mg Metformin HCl (Glucophage) 500 mg PO TID [facility] Last Admin: 01/27/18 17:04 Dose: 500 mg Pantoprazole Sodium (Protonix Ec Tab) 40 mg PO DAILY [facility] Last Admin: 01/27/18 09:05 Dose: 40 mg - Labs Labs: 01/27/18 10:40 01/27/18 10:40
--- NOTE | 2018-01-27 20:03 | CP.PCM.CON ---
History of Present Illness - History of Present Illness History of Present Illness: 77 year old male with a history of DM, CVA, seizure disorder, recent acute CVA, iron deficiency anemia, admitted for inpatient rehab. The patient notes to blood in the stool from time to time. He thinks he was told he had hemorrhoids in the past. He denies changes in stool caliber but does get constipated sometimes. He denies further abnormal bleeding and bruising. He is currently on dual antiplatelet therapy and DVT prophylaxis. Past medical history: DM, CVA, seizures Past surgical history: None Family history: Denies hematologic and oncologic problems Social history: Former tobacco Allergies: NKA Review of systems: All remaining review of systems including HEENT, cardiovascular, respiratory, gastrointestinal, genitourinary, musculoskeletal, dermatologic, neurologic, and psychiatric are negative unless mentioned in the HPI. Past Patient History - Past Medical History & Family History Past Medical History?: Yes - Past Social History Smoking Status: Former Smoker - CARDIAC Hx Hypercholesterolemia: Yes Hx Hypertension: Yes - PULMONARY Hx Respiratory Disorders: No - NEUROLOGICAL Hx Seizures: Yes (Focal in 2010) - HEENT Hx HEENT Problems: No - RENAL Hx Chronic Kidney Disease: No - ENDOCRINE/METABOLIC Hx Diabetes Mellitus Type 2: Yes - HEMATOLOGICAL/ONCOLOGICAL Hx Blood Disorders: No Hx AIDS: No Hx Human Immunodeficiency Virus (HIV): No - INTEGUMENTARY Hx Dermatological Problems: No - MUSCULOSKELETAL/RHEUMATOLOGICAL Hx Falls: No - GASTROINTESTINAL Hx Gastrointestinal Disorders: No - GENITOURINARY/GYNECOLOGICAL Hx Genitourinary Disorders: No - PSYCHIATRIC Hx Substance Use: No - SURGICAL HISTORY Hx Surgeries: No - ANESTHESIA Hx Anesthesia: No Hx Anesthesia Reactions: No Hx Malignant Hyperthermia: No Meds Allergies/Adverse Reactions: Allergies Allergy/AdvReac Type Severity Reaction Status Date / Time No Known Allergies Allergy Verified 01/27/17 16:06 - Medications Medications: Current Medications Aspirin (Aspirin Chewable) 81 mg PO DAILY [facility] Last Admin: 01/27/18 09:03 Dose: 81 mg Atorvastatin Calcium (Lipitor) 10 mg PO HS [facility] Last Admin: 01/26/18 22:12 Dose: 10 mg Carvedilol (Coreg) 12.5 mg PO BID [facility] Last Admin: 01/27/18 17:04 Dose: 12.5 mg Cilostazol (Pletal) 100 mg PO BID [facility] Last Admin: 01/27/18 17:04 Dose: 100 mg Clopidogrel Bisulfate (Plavix) 75 mg PO DAILY [facility] Last Admin: 01/27/18 12:26 Dose: 75 mg Enoxaparin Sodium (Lovenox) 30 mg SC DAILY [facility] PRN Reason: Protocol Last Admin: 01/27/18 09:04 Dose: 30 mg Iron Sucrose 200 mg/ Sodium (Chloride) 110 mls @ 110 mls/hr IVPB DAILY@0600 [facility] Last Admin: 01/27/18 05:55 Dose: 110 mls/hr Levetiracetam (Keppra) 500 mg PO BID [facility] Last Admin: 01/27/18 17:04 Dose: 500 mg Metformin HCl (Glucophage) 500 mg PO TID [facility] Last Admin: 01/27/18 17:04 Dose: 500 mg Pantoprazole Sodium (Protonix Ec Tab) 40 mg PO DAILY [facility] Last Admin: 01/27/18 09:05 Dose: 40 mg Physical Exam - Head Exam Head Exam: ATRAUMATIC - Eye Exam Eye Exam: Normal appearance - ENT Exam ENT Exam: Mucous Membranes Dry - Respiratory Exam Respiratory Exam: NORMAL BREATHING PATTERN - Cardiovascular Exam Cardiovascular Exam: +S1, +S2 - GI/Abdominal Exam GI & Abdominal Exam: Normal Bowel Sounds - Neurological Exam Neurological exam: Oriented x3 - Psychiatric Exam Psychiatric exam: Normal Affect, Normal Mood - Skin Skin Exam: Warm Results - Vital Signs Recent Vital Signs: Last Vital Signs Temp 97.0 F L 01/27/18 08:11 Pulse 102 H 01/27/18 17:04 Resp 19 01/27/18 08:11 BP 143/94 H 01/27/18 17:04 Pulse Ox 96 01/27/18 10:25 - Labs Result Diagrams: 01/27/18 10:40 01/27/18 10:40 Labs: Laboratory Results - last 24 hr 01/26/18 01/27/18 01/27/18 23:14 06:18 10:40 WBC 7.4 RBC 3.17 L Hgb 8.9 L Hct 26.6 L MCV 83.9 MCH 28.0 MCHC 33.4 RDW 16.1 H Plt Count 365 Sodium Potassium Chloride Carbon Dioxide Anion Gap BUN Creatinine Est GFR ( Amer) Est GFR (Non-Af Amer) POC Glucose (mg/dL) 130 H 117 H Random Glucose Calcium 04/02/18 04/02/18 10:40 11:53 WBC RBC Hgb Hct MCV MCH MCHC RDW Plt Count Sodium 146 Potassium 4.2 Chloride 109 H Carbon Dioxide 21 L Anion Gap 20 BUN 26 H Creatinine 1.8 H Est GFR ( Amer) 44 Est GFR (Non-Af Amer) 37 POC Glucose (mg/dL) 203 H Random Glucose 190 H Calcium 9.4 Assessment & Plan (1) Anemia Assessment and Plan: iron deficiency anemia likely secondary to chronic GI blood loss will start the patient on IV iron daily outpatient GI evaluation element of anemia of CKD; will consider Procrit once iron stores replenished okay to cont. antiplatelet therapy unless H/H cont. to decline; will repeat CBC Saturday. Thank you for this interesting consult. Status: Acute
--- NOTE | 2018-01-27 20:45 | CP.PCM.PN ---
Subjective - Date & Time of Evaluation Date of Evaluation: 01/27/18 Time of Evaluation: 22:22 - Subjective Subjective: Above noted Objective - Vital Signs/Intake and Output Vital Signs (last 24 hours): Temp Pulse Resp BP Pulse Ox 98.1 F 83 19 138/72 97 01/27/18 20:00 01/27/18 20:00 01/27/18 20:00 01/27/18 20:00 01/27/18 20:00 - Medications Medications: Current Medications Aspirin (Aspirin Chewable) 81 mg PO DAILY [facility] Last Admin: 01/27/18 09:03 Dose: 81 mg Atorvastatin Calcium (Lipitor) 10 mg PO HS [facility] Last Admin: 01/26/18 22:12 Dose: 10 mg Carvedilol (Coreg) 12.5 mg PO BID [facility] Last Admin: 01/27/18 17:04 Dose: 12.5 mg Cilostazol (Pletal) 100 mg PO BID [facility] Last Admin: 01/27/18 17:04 Dose: 100 mg Clopidogrel Bisulfate (Plavix) 75 mg PO DAILY [facility] Last Admin: 01/27/18 12:26 Dose: 75 mg Enoxaparin Sodium (Lovenox) 30 mg SC DAILY [facility] PRN Reason: Protocol Last Admin: 01/27/18 09:04 Dose: 30 mg Iron Sucrose 200 mg/ Sodium (Chloride) 110 mls @ 110 mls/hr IVPB DAILY@0600 [facility] Last Admin: 01/27/18 05:55 Dose: 110 mls/hr Levetiracetam (Keppra) 500 mg PO BID [facility] Last Admin: 01/27/18 17:04 Dose: 500 mg Metformin HCl (Glucophage) 500 mg PO TID [facility] Last Admin: 01/27/18 17:04 Dose: 500 mg Pantoprazole Sodium (Protonix Ec Tab) 40 mg PO DAILY [facility] Last Admin: 01/27/18 09:05 Dose: 40 mg - Labs Labs: 01/27/18 10:40 01/27/18 10:40 - Respiratory Exam Respiratory Exam: Wheezes, NORMAL BREATHING PATTERN - Cardiovascular Exam Cardiovascular Exam: REGULAR RHYTHM - GI/Abdominal Exam GI & Abdominal Exam: Normal Bowel Sounds Assessment and Plan - Assessment and Plan (Free Text) Assessment: Acute L [place] ischemic CVA Hx L MCA CVA Neuro Cardiology ASA Plavix Pletal Anemia Normochromic normocytic etiol? w/u ordered Hematology Hypertension Dyslipidemia Diabetes A1c 7.5 Seizure disorder
[2018-01-28] MEDS: Cilostazol 100 mg Tab UD PO SCH ×2 (08:59→17:10)
[2018-01-28] MEDS: Enoxaparin 30 mg Syringe SC SCH (08:59)
[2018-01-28] MEDS: Pantoprazole 40 mg EC Tab PO SCH (09:00)
--- NOTE | 2018-01-28 10:13 | CP.PCM.CON ---
History of Present Illness - History of Present Illness History of Present Illness: Asked to evaluate this 77-year-old male who has had recent ischemic cerebrovascular accident and his ability to swallow thin liquids safely appears to have been waxing and waning subsequently. At the current time he does have cough which is induced by swallowing thin liquids, but this has apparently not been the case as recently as last week. He underwent a video swallow yesterday which showed penetration of a small amount of material without any aspiration. No coughing was induced at the time of the procedure. He denies any shortness of breath which is associated with this coughing, and his vital signs have remained stable/afebrile. Review of his chest x-ray shows no evidence of any infiltrates or effusions. He denies any prior history of pleur0-pulmonary disease. He is a former cigarette smoker who discontinued his habit. He does have comorbid illnesses which consist of hypertension, hyperlipidemia, diabetes , prior CVA, seizure disorder and anemia. Past Patient History - Past Medical History & Family History Past Medical History?: Yes - Past Social History Smoking Status: Former Smoker Chewing Tobacco Use: No Cigar Use: No Alcohol: None Drugs: Denies - CARDIAC Hx Hypercholesterolemia: Yes Hx Hypertension: Yes - PULMONARY Hx Respiratory Disorders: No - NEUROLOGICAL HX Cerebrovascular Accident: Yes Hx Seizures: Yes (Focal in 2010) - HEENT Hx HEENT Problems: No - RENAL Hx Chronic Kidney Disease: No - ENDOCRINE/METABOLIC Hx Diabetes Mellitus Type 2: Yes - HEMATOLOGICAL/ONCOLOGICAL Hx Blood Disorders: No Hx Human Immunodeficiency Virus (HIV): No - INTEGUMENTARY Hx Dermatological Problems: No - MUSCULOSKELETAL/RHEUMATOLOGICAL Hx Falls: No - GASTROINTESTINAL Hx Gastrointestinal Disorders: No - GENITOURINARY/GYNECOLOGICAL Hx Genitourinary Disorders: No - PSYCHIATRIC Hx Psychophysiologic Disorder: No Hx Substance Use: No - SURGICAL HISTORY Hx Surgeries: No - ANESTHESIA Hx Anesthesia: No Hx Anesthesia Reactions: No Hx Malignant Hyperthermia: No Meds Allergies/Adverse Reactions: Allergies Allergy/AdvReac Type Severity Reaction Status Date / Time No Known Allergies Allergy Verified 01/27/17 16:06 - Medications Medications: Current Medications Aspirin (Aspirin Chewable) 81 mg PO DAILY [facility] Last Admin: 01/28/18 08:59 Dose: 81 mg Atorvastatin Calcium (Lipitor) 10 mg PO HS [facility] Last Admin: 01/27/18 21:07 Dose: 10 mg Carvedilol (Coreg) 12.5 mg PO BID [facility] Last Admin: 01/28/18 09:00 Dose: 12.5 mg Cilostazol (Pletal) 100 mg PO BID [facility] Last Admin: 01/28/18 08:59 Dose: 100 mg Clopidogrel Bisulfate (Plavix) 75 mg PO DAILY [facility] Last Admin: 01/28/18 09:00 Dose: 75 mg Enoxaparin Sodium (Lovenox) 30 mg SC DAILY [facility] PRN Reason: Protocol Last Admin: 01/28/18 08:59 Dose: 30 mg Iron Sucrose 200 mg/ Sodium (Chloride) 110 mls @ 110 mls/hr IVPB DAILY@0600 [facility] Last Admin: 01/28/18 05:44 Dose: 110 mls/hr Levetiracetam (Keppra) 500 mg PO BID [facility] Last Admin: 01/28/18 09:00 Dose: 500 mg Metformin HCl (Glucophage) 500 mg PO TID [facility] Last Admin: 01/28/18 08:59 Dose: 500 mg Pantoprazole Sodium (Protonix Ec Tab) 40 mg PO DAILY [facility] Last Admin: 01/28/18 09:00 Dose: 40 mg Physical Exam - Additional Findings Additional findings: Well-nourished, well-developed, presently sitting in a wheelchair. Dysartria w/o aphasia. Weakness of the right upper and right lower extremities. Response to questions appropriately and is able to follow commands. Cooperative with physical examination. The neck is supple and trachea is midline. There is no neck vein distention. No carotid bruit. Trachea is midline. No palpable thyromegaly. No palpable lymphadenopathy. No dullness on chest percussion. Equal expansion. Breath sounds are well heard bilaterally. No rales or wheezes. No bronchial breathing or egophony. No rhonchi or rub. Heart sounds are well heard and the rhythm is regular. Results - Vital Signs Recent Vital Signs: Last Vital Signs Temp 97.3 F L 01/28/18 08:17 Pulse 87 01/28/18 09:00 Resp 20 01/28/18 08:17 BP 159/89 H 01/28/18 09:00 Pulse Ox 96 01/28/18 08:17 - Labs Result Diagrams: 01/27/18 10:40 01/27/18 10:40 Labs: Laboratory Results - last 24 hr 01/27/18 01/27/1801/27/18 10:40 10:40 11:53 WBC 7.4 RBC 3.17 L Hgb 8.9 L Hct 26.6 L MCV 83.9 MCH 28.0 MCHC 33.4 RDW 16.1 H Plt Count 365 Sodium 146 Potassium 4.2 Chloride 109 H Carbon Dioxide 21 L Anion Gap 20 BUN 26 H Creatinine 1.8 H Est GFR ( Amer) 44 Est GFR (Non-Af Amer) 37 POC Glucose (mg/dL) 203 H Random Glucose 190 H Calcium 9.4 01/27/18 01/27/18 01/28/18 16:48 21:06 06:37 WBC RBC Hgb Hct MCV MCH MCHC RDW Plt Count Sodium Potassium Chloride Carbon Dioxide Anion Gap BUN Creatinine Est GFR ( Amer) Est GFR (Non-Af Amer) POC Glucose (mg/dL) 114 H 130 H 114 H Random Glucose Calcium Assessment & Plan (1) Cough Status: Acute (2) Ischemic stroke Status: Acute Priority: High - Assessment and Plan (Free Text) Plan: Review of the modified barium swallow shows penetrance without any evidence of aspiration. Will require continued work with speech therapy to overcome this problem. No medications recommended from a pulmonary standpoint at this time. - Date & Time Date: 01/28/18 Time: :18
--- NOTE | 2018-01-28 13:09 | PSY.TMCNF ---
Nursing - Vital Signs Vital Signs (Last 8 hours): Vital Signs 01/28/18 01/28/18 01/28/18 08:17 09:00 10:48 Temperature 97.3 F L Pulse Rate 87 87 87 Respiratory 20 Rate Blood Pressure 159/89 H 159/89 H O2 Sat by Pulse 96 95 Oximetry Pain: 0 - Medications/Other Issues Comment: Pt at moderate nutritional risk. goals: 1. Pt to consume 75-100% of meals. 2. Blood glucoses to be between 70-180 mg/dl. Follow-up due on 2017 - Bladder Management Bladder Pattern: Normal Voiding Method: Toilet - Bowel Management Bowel Pattern: Normal - Goals/Time Frame Comments: Pt was seen awake and alert laying in his bed in his room. Pt expressed that he was fatigued although agreeable to visit. Pt's present at bedside. Pt was able to identify his leisure interests such as watching television, watching sports, playing pool, playing cards, and spending time with family and friends. Pt presents with decrease strength and fine motor skills in both L and R hands. Pt would benefit from participating in recreation therapy sessions throughout stay on unit. Physical Therapy - Bed Mobility Bed Mobility: Verbal Cues, Contact Guard, Minimal Assistance Comment: vc for sequencing and safety, mayur hand placement - Transfers Sit to Stand: Verbal Cues, Minimal Assistance - Ambulation Level of Assistance: Verbal Cues, Contact Guard Assistive Devices: Rolling Walker - Stair Negotiation Stairs: Level of Assistance: Verbal Cues, Contact Guard, Minimal Assistance Number of Stairs: 6 Stairs: Assistive Devices: Left Handrail, Right Handrail - Standing Balance Static Stand: Contact Guard Assist Dynamic Stand: Minimal Assistance, Moderate Assistance - Pain Pain (assessed during therapy session): 0 - Insight/Carryover Insight/Carryover: Fair - Patient/Family Education Comment: -educated on rehab/OT goals and tx plan. -adls, transfers and mobility training with assistive device--further training needed to increase carryover and overall safety. -pt/pt's educated on DMEs uses/applications : commode, transfer tub bench with back; pt's verbalizes understanding - Assessment/Plan Assessment: Lizandro Davis presents with 1.) moderate dysarthria characterized by imprecise articulatory precision and decreased volume which negatively impacts speech intelligibility; 2.) mild-moderate cognitive-linguistic deficits as characterized by decreased thought organization and short term recall; and 3.) mild pharyngeal dysphagia (per MBS completed 01/27/18) characterized by delayed swallow initiation to the level of the pyriform sinuses, premature spillage to the level of the valleculae with all consistencies tested, mild residue in the valleculae and pyriform sinuses with all consistencies tested, and fleeting penetration x1 with consecutive sips of thin liquids. However, pt continues with coughing with thins at the bedside; recommend maintenance of regular diet with nectar thick liquids and safe swallowing strategies (slow pace, small, single bites, cyclic ingestion); consider Vitalstim to improve strength and integrity of swallowing musculature and upgrade diet as clinically indicated at the bedside. Pt would benefit from skilled speech tx and dysphagia tx to improve verbal communication, short term memory, thought organization skills, and swallow function. - Goals Timeframe: 8 days Goals: -FEEDING: I/setup. -GROOMING: I/setup. -UPPER BODY DRESSING: I/setup. -LOWER BODY DRESSING: Close S/Cg and verbal cues with assistive devices. - TRANSFERS: <->bed, commode, chair and other surfaces with CS/CG with RW or SPC. -BATHING: Min assist and verbal cues. -BED MOBILITY: Supervision and veral cues. -TOILETING: CS/Supervision and verbal cues. -CAREGIVER ED: Pt's to be I assisting pt with adls, transfers, mobility - Provider License Number: [id number] Occupational Therapy - Arousal/Attention/Orientation Patient Orientation: Person, Place, Time - ADL/IADL Self Feeding: Set-up Help Grooming: Set-up Help Dressing-Upper Extremity: Minimal Assistance Dressing-Lower Extremity: Minimal Assistance Comment: RW and hand held assist during transfers. - Sitting Balance Static Sitting: Independent without upper extremity support Dynamic Sitting: Reaches across midline, Reaches out of base of support, Reaches within base of support, Contact Guard Assist Comment: unsupported seated at edge of bed - Transfers Wheelchair to Bed Transfers: Minimal Assistance Toilet Transfers: Minimal Assistance Comment: shower : TBA. -pt uses RW for functional transfers/mobilty at this time - Upper Extremity Status Right Upper Extremity Comment: AROM is WFLS; 4/5 Left Upper Extremity Comment: AROM is WFLS; 4/5 - Pain Pain (assessed during therapy session): 0 - Insight/Carryover Insight/Carryover: Fair - Patient/Family Education Comment: -educated on rehab/OT goals and tx plan. -adls, transfers and mobility training with assistive device--further training needed to increase carryover and overall safety. -pt/pt's educated on DMEs uses/applications : commode, transfer tub bench with back; pt's verbalizes understanding - Assessment/Plan Assessment: Lizandro Davis presents with 1.) moderate dysarthria characterized by imprecise articulatory precision and decreased volume which negatively impacts speech intelligibility; 2.) mild-moderate cognitive-linguistic deficits as characterized by decreased thought organization and short term recall; and 3.) mild pharyngeal dysphagia (per MBS completed 01/27/18) characterized by delayed swallow initiation to the level of the pyriform sinuses, premature spillage to the level of the valleculae with all consistencies tested, mild residue in the valleculae and pyriform sinuses with all consistencies tested, and fleeting penetration x1 with consecutive sips of thin liquids. However, pt continues with coughing with thins at the bedside; recommend maintenance of regular diet with nectar thick liquids and safe swallowing strategies (slow pace, small, single bites, cyclic ingestion); consider Vitalstim to improve strength and integrity of swallowing musculature and upgrade diet as clinically indicated at the bedside. Pt would benefit from skilled speech tx and dysphagia tx to improve verbal communication, short term memory, thought organization skills, and swallow function. - Goals Timeframe: 8 days Goals: -FEEDING: I/setup. -GROOMING: I/setup. -UPPER BODY DRESSING: I/setup. -LOWER BODY DRESSING: Close S/Cg and verbal cues with assistive devices. - TRANSFERS: <->bed, commode, chair and other surfaces with CS/CG with RW or SPC. -BATHING: Min assist and verbal cues. -BED MOBILITY: Supervision and veral cues. -TOILETING: CS/Supervision and verbal cues. -CAREGIVER ED: Pt's to be I assisting pt with adls, transfers, mobility - Provider Therapist: Dot Garza OTR/L License Number: [id number] Speech Therapy - Consult Information Patient on Program: Yes Medical Diagnosis: CVA Treatment Diagnosis: -moderate dysarthria. -mild-moderate cognitive linguistic deficits. -mild pharyngeal dysphagia - Assessment Memory Impairment: Mild Speech/Articulation Impairment: Moderate Dysphagia/Swallowing Impairment: Mild - Plan Assessment: Lizandro Davis presents with 1.) moderate dysarthria characterized by imprecise articulatory precision and decreased volume which negatively impacts speech intelligibility; 2.) mild-moderate cognitive-linguistic deficits as characterized by decreased thought organization and short term recall; and 3.) mild pharyngeal dysphagia (per MBS completed 01/27/18) characterized by delayed swallow initiation to the level of the pyriform sinuses, premature spillage to the level of the valleculae with all consistencies tested, mild residue in the valleculae and pyriform sinuses with all consistencies tested, and fleeting penetration x1 with consecutive sips of thin liquids. However, pt continues with coughing with thins at the bedside; recommend maintenance of regular diet with nectar thick liquids and safe swallowing strategies (slow pace, small, single bites, cyclic ingestion); consider Vitalstim to improve strength and integrity of swallowing musculature and upgrade diet as clinically indicated at the bedside. Pt would benefit from skilled speech tx and dysphagia tx to improve verbal communication, short term memory, thought organization skills, and swallow function. Plan: Continue Dysphagia Therapy, Continue Speech/Language Therapy - Provider Therapist: Letty Dobson License Number: [id number] Recreational Therapy - Participation Participation: Participates in Individual and/or Group Sessions - Attendance Attendance: 3-5 times per week - Activities Leisure Activities: Cards and Games - Socialization Level of Socialization: Initiates/interacts freely with care givers and peer - Diversional Time Diversional Time: television - Assessment Assessment/Plan: Lizandro Davis presents with 1.) moderate dysarthria characterized by imprecise articulatory precision and decreased volume which negatively impacts speech intelligibility; 2.) mild-moderate cognitive- linguistic deficits as characterized by decreased thought organization and short term recall; and 3.) mild pharyngeal dysphagia (per MBS completed 01/27/18) characterized by delayed swallow initiation to the level of the pyriform sinuses , premature spillage to the level of the valleculae with all consistencies tested, mild residue in the valleculae and pyriform sinuses with all consistencies tested, and fleeting penetration x1 with consecutive sips of thin liquids. However, pt continues with coughing with thins at the bedside; recommend maintenance of regular diet with nectar thick liquids and safe swallowing strategies (slow pace, small, single bites, cyclic ingestion); consider Vitalstim to improve strength and integrity of swallowing musculature and upgrade diet as clinically indicated at the bedside. Pt would benefit from skilled speech tx and dysphagia tx to improve verbal communication, short term memory, thought organization skills, and swallow function. - Provider Therapist: Juli Pérez, GRAIN ELEVATOR OPERATOR #[id number] Nutrition - Current Diet Current Diet/ Supplement/ Feedings: moderate consistent CHO heart healthy nectar thick liquids diet - Appetite Percent Meal Consumed: 75-100% - Assessment/Goals/Time Frame Assessment/Goals/Time Frame: Pt at moderate nutritional risk. goals: 1. Pt to consume 75-100% of meals. 2. Blood glucoses to be between 70-180 mg/dl. Follow-up due on 02/02/2018 - Provider Provider: Lisa Manning RD Case Management - Discharge Plan Discharge Plan: Home with significant other/family
--- NOTE | 2018-01-28 15:35 | PN ---
DATE: PHYSIATRY PROGRESS NOTE SUBJECTIVE: The patient is feeling fine. No acute complaints at present. PHYSICAL EXAMINATION: VITAL SIGNS: Stable. NECK: Supple. CHEST: Symmetrical. HEART: Sounds S1 and S2. ABDOMEN: Abdominal area is benign. EXTREMITIES: No clubbing, cyanosis or edema. The patient with diagnosis of acute CVA, hypertension, and diabetes. Discussed discharge planning with the patient. Tentative discharge is for 02/05/2018. may need to extended date. The patient needs 24-hour care therapist. This is Dr. Serna covering for Dr. Crain. Cole MD Kareem
--- NOTE | 2018-01-28 21:11 | CP.PCM.PN ---
Subjective - Date & Time of Evaluation Date of Evaluation: 01/28/18 Time of Evaluation: 22:22 - Subjective Subjective: Above noted Objective - Vital Signs/Intake and Output Vital Signs (last 24 hours): Temp Pulse Resp BP Pulse Ox 97.9 F 82 18 148/81 95 01/28/18 20:16 01/28/18 20:16 01/28/18 20:16 01/28/18 20:16 01/28/18 20:16 - Medications Medications: Current Medications Aspirin (Aspirin Chewable) 81 mg PO DAILY [facility] Last Admin: 01/28/18 08:59 Dose: 81 mg Atorvastatin Calcium (Lipitor) 10 mg PO HS [facility] Last Admin: 01/27/18 21:07 Dose: 10 mg Carvedilol (Coreg) 12.5 mg PO BID [facility] Last Admin: 01/28/18 17:11 Dose: 12.5 mg Cilostazol (Pletal) 100 mg PO BID [facility] Last Admin: 01/28/18 17:10 Dose: 100 mg Clopidogrel Bisulfate (Plavix) 75 mg PO DAILY [facility] Last Admin: 01/28/18 09:00 Dose: 75 mg Enoxaparin Sodium (Lovenox) 30 mg SC DAILY [facility] PRN Reason: Protocol Last Admin: 01/28/18 08:59 Dose: 30 mg Iron Sucrose 200 mg/ Sodium (Chloride) 110 mls @ 110 mls/hr IVPB DAILY@0600 [facility] Last Admin: 01/28/18 05:44 Dose: 110 mls/hr Levetiracetam (Keppra) 500 mg PO BID [facility] Last Admin: 01/28/18 17:10 Dose: 500 mg Metformin HCl (Glucophage) 500 mg PO TID [facility] Last Admin: 01/28/18 17:10 Dose: 500 mg Pantoprazole Sodium (Protonix Ec Tab) 40 mg PO DAILY [facility] Last Admin: 01/28/18 09:00 Dose: 40 mg - Labs Labs: 01/27/18 10:40 01/27/18 10:40 - Respiratory Exam Respiratory Exam: NORMAL BREATHING PATTERN - Cardiovascular Exam Cardiovascular Exam: REGULAR RHYTHM - GI/Abdominal Exam GI & Abdominal Exam: Normal Bowel Sounds Assessment and Plan - Assessment and Plan (Free Text) Assessment: 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 w/u ordered Hematology Hypertension Dyslipidemia Diabetes A1c 7.5 Seizure disorder
[2018-01-29] MEDS: Pantoprazole 40 mg EC Tab PO SCH (08:43)
[2018-01-29] MEDS: Cilostazol 100 mg Tab UD PO SCH ×2 (08:43→16:56)
[2018-01-29] MEDS: Enoxaparin 30 mg Syringe SC SCH (08:46)
--- NOTE | 2018-01-29 08:56 | CP.PCM.PN ---
Subjective - Date & Time of Evaluation Date of Evaluation: 01/29/18 Time of Evaluation: 08:55 - Subjective Subjective: Mr. Davis was seen and examined at the bedside. He is alert, oriented with mild dysarthia. He denies any headache, dizziness, lightheadedness, blurred vision. He is able to follow simple commands. He has mild right side weakness. He is requesting to step up his fluid status. Explained to the patient that depending to the evaluation of speech therapist and with no s/s aspiration is some of criteria to improve diet. There was no untoward events overnight. Objective - Vital Signs/Intake and Output Vital Signs (last 24 hours): Temp Pulse Resp BP Pulse Ox 97.9 F 93 H 18 144/78 95 01/28/18 20:16 01/29/18 08:42 01/28/18 20:16 01/29/18 08:42 01/28/18 20:16 - Medications Medications: Current Medications Aspirin (Aspirin Chewable) 81 mg PO DAILY [facility] Last Admin: 01/29/18 08:42 Dose: 81 mg Atorvastatin Calcium (Lipitor) 10 mg PO HS [facility] Last Admin: 01/28/18 21:23 Dose: 10 mg Carvedilol (Coreg) 12.5 mg PO BID [facility] Last Admin: 01/29/18 08:42 Dose: 12.5 mg Cilostazol (Pletal) 100 mg PO BID [facility] Last Admin: 01/29/18 08:43 Dose: 100 mg Clopidogrel Bisulfate (Plavix) 75 mg PO DAILY [facility] Last Admin: 01/29/18 08:44 Dose: 75 mg Enoxaparin Sodium (Lovenox) 30 mg SC DAILY [facility] PRN Reason: Protocol Last Admin: 01/29/18 08:46 Dose: 30 mg Iron Sucrose 200 mg/ Sodium (Chloride) 110 mls @ 110 mls/hr IVPB DAILY@0600 [facility] Last Admin: 01/29/18 05:20 Dose: 110 mls/hr Levetiracetam (Keppra) 500 mg PO BID [facility] Last Admin: 01/29/18 08:43 Dose: 500 mg Metformin HCl (Glucophage) 500 mg PO TID [facility] Last Admin: 01/29/18 08:43 Dose: 500 mg Pantoprazole Sodium (Protonix Ec Tab) 40 mg PO DAILY [facility] Last Admin: 01/29/18 08:43 Dose: 40 mg - Labs Labs: 01/27/18 10:40 01/27/18 10:40 - Constitutional Appears: No Acute Distress - Head Exam Head Exam: NORMAL INSPECTION - Neurological Exam Neurological Exam: Alert, Awake, Oriented x3 Neuro motor strength exam: Left Upper Extremity: 5, Right Upper Extremity: 4, Left Lower Extremity: 5, Right Lower Extremity: 4 Additional comments: Neurological unchanged from previous examination. Assessment and Plan (1) Ischemic stroke Assessment & Plan: Case discussed with Dr. Duran, continue all current medical, physical, occupational, and speech therapies. There is no new recommendation from neurology. Status: Acute
--- NOTE | 2018-01-29 12:46 | CP.PCM.PN ---
Subjective - Date & Time of Evaluation Date of Evaluation: 01/29/18 Time of Evaluation: 10:00 - Subjective Subjective: no acute complaints at present Objective - Vital Signs/Intake and Output Vital Signs (last 24 hours): Temp Pulse Resp BP Pulse Ox 97.7 F 84 18 144/78 99 01/29/18 10:00 01/29/18 10:43 01/29/18 10:00 01/29/18 10:00 01/29/18 10:43 - Medications Medications: Current Medications Aspirin (Aspirin Chewable) 81 mg PO DAILY [facility] Last Admin: 01/29/18 08:42 Dose: 81 mg Atorvastatin Calcium (Lipitor) 10 mg PO HS [facility] Last Admin: 01/28/18 21:23 Dose: 10 mg Carvedilol (Coreg) 12.5 mg PO BID [facility] Last Admin: 01/29/18 08:42 Dose: 12.5 mg Cilostazol (Pletal) 100 mg PO BID [facility] Last Admin: 01/29/18 08:43 Dose: 100 mg Clopidogrel Bisulfate (Plavix) 75 mg PO DAILY [facility] Last Admin: 01/29/18 08:44 Dose: 75 mg Enoxaparin Sodium (Lovenox) 30 mg SC DAILY [facility] PRN Reason: Protocol Last Admin: 01/29/18 08:46 Dose: 30 mg Iron Sucrose 200 mg/ Sodium (Chloride) 110 mls @ 110 mls/hr IVPB DAILY@0600 [facility] Last Admin: 01/29/18 05:20 Dose: 110 mls/hr Levetiracetam (Keppra) 500 mg PO BID [facility] Last Admin: 01/29/18 08:43 Dose: 500 mg Metformin HCl (Glucophage) 500 mg PO TID [facility] Last Admin: 01/29/18 12:26 Dose: 500 mg Pantoprazole Sodium (Protonix Ec Tab) 40 mg PO DAILY [facility] Last Admin: 01/29/18 08:43 Dose: 40 mg - Labs Labs: 01/27/18 10:40 01/27/18 10:40 - Head Exam Head Exam: ATRAUMATIC, NORMAL INSPECTION, NORMOCEPHALIC - Eye Exam Eye Exam: EOMI, Normal appearance, PERRL Pupil Exam: NORMAL ACCOMODATION - ENT Exam ENT Exam: Mucous Membranes Moist, Normal Exam - Neck Exam Neck Exam: Normal Inspection - Respiratory Exam Respiratory Exam: NORMAL BREATHING PATTERN - Cardiovascular Exam Cardiovascular Exam: REGULAR RHYTHM - GI/Abdominal Exam GI & Abdominal Exam: Soft, Normal Bowel Sounds - Rectal Exam Rectal Exam: NORMAL INSPECTION - Exam External exam: NORMAL EXTERNAL EXAM - Extremities Exam Extremities Exam: Full ROM, Normal Capillary Refill - Back Exam Back Exam: NORMAL INSPECTION - Neurological Exam Neurological Exam: Alert, Awake Neuro motor strength exam: Left Upper Extremity: 3, Right Upper Extremity: 3, Left Lower Extremity: 3, Right Lower Extremity: 3 - Psychiatric Exam Psychiatric exam: Normal Affect, Normal Mood - Skin Skin Exam: Dry, Intact Assessment and Plan (1) Dehydration Status: Acute (2) Ischemic stroke Status: Acute (3) TIA (transient ischemic attack) Assessment & Plan: plan for pt, ot, rec therapy program for Dc for 02/05 Status: Acute - Assessment and Plan (Free Text) Assessment: coverign for Dr desai
--- NOTE | 2018-01-29 17:54 | CP.PCM.PN ---
Subjective - Date & Time of Evaluation Date of Evaluation: 01/29/18 Time of Evaluation: 22:22 - Subjective Subjective: Doing well Objective - Vital Signs/Intake and Output Vital Signs (last 24 hours): Temp Pulse Resp BP Pulse Ox 97.7 F 78 18 131/45 L 99 01/29/18 10:00 01/29/18 16:55 01/29/18 10:00 01/29/18 16:55 01/29/18 10:43 - Medications Medications: Current Medications Aspirin (Aspirin Chewable) 81 mg PO DAILY [facility] Last Admin: 01/29/18 08:42 Dose: 81 mg Atorvastatin Calcium (Lipitor) 10 mg PO HS [facility] Last Admin: 01/28/18 21:23 Dose: 10 mg Carvedilol (Coreg) 12.5 mg PO BID [facility] Last Admin: 01/29/18 16:55 Dose: 12.5 mg Cilostazol (Pletal) 100 mg PO BID [facility] Last Admin: 01/29/18 16:56 Dose: 100 mg Clopidogrel Bisulfate (Plavix) 75 mg PO DAILY [facility] Last Admin: 01/29/18 08:44 Dose: 75 mg Enoxaparin Sodium (Lovenox) 30 mg SC DAILY [facility] PRN Reason: Protocol Last Admin: 01/29/18 08:46 Dose: 30 mg Iron Sucrose 200 mg/ Sodium (Chloride) 110 mls @ 110 mls/hr IVPB DAILY@0600 [facility] Last Admin: 01/29/18 05:20 Dose: 110 mls/hr Levetiracetam (Keppra) 500 mg PO BID [facility] Last Admin: 01/29/18 16:56 Dose: 500 mg Metformin HCl (Glucophage) 500 mg PO TID [facility] Last Admin: 01/29/18 16:56 Dose: 500 mg Pantoprazole Sodium (Protonix Ec Tab) 40 mg PO DAILY [facility] Last Admin: 01/29/18 08:43 Dose: 40 mg - Labs Labs: 01/27/18 10:40 01/27/18 10:40 - Respiratory Exam Respiratory Exam: NORMAL BREATHING PATTERN - Cardiovascular Exam Cardiovascular Exam: REGULAR RHYTHM - GI/Abdominal Exam GI & Abdominal Exam: Normal Bowel Sounds Assessment and Plan - Assessment and Plan (Free Text) Assessment: Acute L [place] ischemic CVA Hx L MCA CVA Neuro Cardiology ASA Plavix Pletal PT Anemia Normochromic normocytic Fe deficieincy? Fe GI w/u needed Hematology Hypertension Dyslipidemia Diabetes A1c 7.5 Seizure disorder
--- NOTE | 2018-01-29 23:21 | CP.PCM.PN ---
Subjective - Date & Time of Evaluation Date of Evaluation: 01/29/18 Time of Evaluation: 13:30 - Subjective Subjective: Feeling better Objective - Vital Signs/Intake and Output Vital Signs (last 24 hours): Temp Pulse Resp BP Pulse Ox 97.7 F 84 20 144/80 96 01/29/18 20:01 01/29/18 20:01 01/29/18 20:01 01/29/18 20:01 01/29/18 20:01 - Medications Medications: Current Medications Aspirin (Aspirin Chewable) 81 mg PO DAILY [facility] Last Admin: 01/29/18 08:42 Dose: 81 mg Atorvastatin Calcium (Lipitor) 10 mg PO HS [facility] Last Admin: 01/29/18 21:09 Dose: 10 mg Carvedilol (Coreg) 12.5 mg PO BID [facility] Last Admin: 01/29/18 16:55 Dose: 12.5 mg Cilostazol (Pletal) 100 mg PO BID [facility] Last Admin: 01/29/18 16:56 Dose: 100 mg Clopidogrel Bisulfate (Plavix) 75 mg PO DAILY [facility] Last Admin: 01/29/18 08:44 Dose: 75 mg Enoxaparin Sodium (Lovenox) 30 mg SC DAILY [facility] PRN Reason: Protocol Last Admin: 01/29/18 08:46 Dose: 30 mg Iron Sucrose 200 mg/ Sodium (Chloride) 110 mls @ 110 mls/hr IVPB DAILY@0600 [facility] Last Admin: 01/29/18 05:20 Dose: 110 mls/hr Levetiracetam (Keppra) 500 mg PO BID [facility] Last Admin: 01/29/18 16:56 Dose: 500 mg Metformin HCl (Glucophage) 500 mg PO TID [facility] Last Admin: 01/29/18 16:56 Dose: 500 mg Pantoprazole Sodium (Protonix Ec Tab) 40 mg PO DAILY [facility] Last Admin: 01/29/18 08:43 Dose: 40 mg - Labs Labs: 01/27/18 10:40 01/27/18 10:40 - Head Exam Head Exam: ATRAUMATIC - Eye Exam Eye Exam: Normal appearance - ENT Exam ENT Exam: Mucous Membranes Dry - Respiratory Exam Respiratory Exam: NORMAL BREATHING PATTERN - Cardiovascular Exam Cardiovascular Exam: +S1, +S2 - GI/Abdominal Exam GI & Abdominal Exam: Normal Bowel Sounds Assessment and Plan (1) Anemia Assessment & Plan: iron deficiency anemia on IV iron repeat CBC Saturday outpatient GI w/u Status: Acute
--- NOTE | 2018-01-30 08:33 | CP.PCM.PN ---
Subjective - Date & Time of Evaluation Date of Evaluation: 01/30/18 Time of Evaluation: 08:33 - Subjective Subjective: Mr. Davis was seen and examined at the bedside. He is alert, oriented with dysarthia improving. He denies any headache, dizziness, lightheadedness, blurred vision. He is able to follow simple commands. He has mild right side weakness. He is requesting to step up his fluid status. Explained to the patient that depending to the evaluation of speech therapist and with no s/s aspiration is some of criteria to improve diet. There was no untoward events overnight. Objective - Vital Signs/Intake and Output Vital Signs (last 24 hours): Temp Pulse Resp BP Pulse Ox 97.4 F L 87 19 141/79 99 01/30/18 08:16 01/30/18 08:16 01/30/18 08:16 01/30/18 08:16 01/30/18 08:16 - Medications Medications: Current Medications Aspirin (Aspirin Chewable) 81 mg PO DAILY [facility] Last Admin: 01/29/18 08:42 Dose: 81 mg Atorvastatin Calcium (Lipitor) 10 mg PO HS [facility] Last Admin: 01/29/18 21:09 Dose: 10 mg Carvedilol (Coreg) 12.5 mg PO BID [facility] Last Admin: 01/29/18 16:55 Dose: 12.5 mg Cilostazol (Pletal) 100 mg PO BID [facility] Last Admin: 01/29/18 16:56 Dose: 100 mg Clopidogrel Bisulfate (Plavix) 75 mg PO DAILY [facility] Last Admin: 01/29/18 08:44 Dose: 75 mg Enoxaparin Sodium (Lovenox) 30 mg SC DAILY [facility] PRN Reason: Protocol Last Admin: 01/29/18 08:46 Dose: 30 mg Iron Sucrose 200 mg/ Sodium (Chloride) 110 mls @ 110 mls/hr IVPB DAILY@0600 [facility] Last Admin: 01/30/18 05:28 Dose: 110 mls/hr Levetiracetam (Keppra) 500 mg PO BID [facility] Last Admin: 01/29/18 16:56 Dose: 500 mg Metformin HCl (Glucophage) 500 mg PO TID [facility] Last Admin: 01/29/18 16:56 Dose: 500 mg Pantoprazole Sodium (Protonix Ec Tab) 40 mg PO DAILY [facility] Last Admin: 01/29/18 08:43 Dose: 40 mg - Labs Labs: 01/27/18 10:40 01/27/18 10:40 - Constitutional Appears: No Acute Distress - Head Exam Head Exam: NORMAL INSPECTION - Neurological Exam Neurological Exam: Alert, Awake, Oriented x3 Neuro motor strength exam: Left Upper Extremity: 5, Right Upper Extremity: 4, Left Lower Extremity: 5, Right Lower Extremity: 4 Additional comments: Neurological unchanged from previous examination. Assessment and Plan (1) Ischemic stroke Assessment & Plan: Case discussed with Dr. Duran, continue all current medical, physical, occupational, and speech therapies. There is no new recommendations from neurology. Status: Acute
[2018-01-30] MEDS: Enoxaparin 30 mg Syringe SC SCH (08:40)
[2018-01-30] MEDS: Cilostazol 100 mg Tab UD PO SCH ×2 (08:41→17:21)
[2018-01-30] MEDS: Pantoprazole 40 mg EC Tab PO SCH (08:42)
--- NOTE | 2018-01-30 09:53 | CP.PCM.PN ---
Subjective - Date & Time of Evaluation Date of Evaluation: 01/30/18 Time of Evaluation: 09:52 - Subjective Subjective: The patient is presently in the shower being helped by the therapist. His vital signs have remained stable. Speech therapy notes were reviewed. Coughing has diminished but is still present at times. He was able to take his medications this morning without any difficulty or cough. We'll continue to follow as needed. Objective - Vital Signs/Intake and Output Vital Signs (last 24 hours): Temp Pulse Resp BP Pulse Ox 97.4 F L 70 19 144/78 99 01/30/18 08:16 01/30/18 08:40 01/30/18 08:16 01/30/18 08:40 01/30/18 08:16 - Medications Medications: Current Medications Aspirin (Aspirin Chewable) 81 mg PO DAILY [facility] Last Admin: 01/30/18 08:40 Dose: 81 mg Atorvastatin Calcium (Lipitor) 10 mg PO HS [facility] Last Admin: 01/29/18 21:09 Dose: 10 mg Carvedilol (Coreg) 12.5 mg PO BID [facility] Last Admin: 01/30/18 08:40 Dose: 12.5 mg Cilostazol (Pletal) 100 mg PO BID [facility] Last Admin: 01/30/18 08:41 Dose: 100 mg Clopidogrel Bisulfate (Plavix) 75 mg PO DAILY [facility] Last Admin: 01/30/18 08:41 Dose: 75 mg Enoxaparin Sodium (Lovenox) 30 mg SC DAILY [facility] PRN Reason: Protocol Last Admin: 01/30/18 08:40 Dose: 30 mg Iron Sucrose 200 mg/ Sodium (Chloride) 110 mls @ 110 mls/hr IVPB DAILY@0600 [facility] Last Admin: 01/30/18 05:28 Dose: 110 mls/hr Levetiracetam (Keppra) 500 mg PO BID [facility] Last Admin: 01/30/18 08:41 Dose: 500 mg Metformin HCl (Glucophage) 500 mg PO TID [facility] Last Admin: 01/30/18 08:41 Dose: 500 mg Pantoprazole Sodium (Protonix Ec Tab) 40 mg PO DAILY [facility] Last Admin: 01/30/18 08:42 Dose: 40 mg - Labs Labs: 01/27/18 10:40 01/27/18 10:40 Assessment and Plan (1) Cough Status: Acute (2) Ischemic stroke Status: Acute
--- NOTE | 2018-01-30 19:57 | CP.PCM.PN ---
Subjective - Date & Time of Evaluation Date of Evaluation: 01/30/18 Time of Evaluation: 22:22 - Subjective Subjective: Above noted Objective - Vital Signs/Intake and Output Vital Signs (last 24 hours): Temp Pulse Resp BP Pulse Ox 97.4 F L 75 19 133/69 99 01/30/18 08:16 01/30/18 17:21 01/30/18 08:16 01/30/18 17:21 01/30/18 13:55 - Medications Medications: Current Medications Aspirin (Aspirin Chewable) 81 mg PO DAILY [facility] Last Admin: 01/30/18 08:40 Dose: 81 mg Atorvastatin Calcium (Lipitor) 10 mg PO HS [facility] Last Admin: 01/29/18 21:09 Dose: 10 mg Carvedilol (Coreg) 12.5 mg PO BID [facility] Last Admin: 01/30/18 17:21 Dose: 12.5 mg Cilostazol (Pletal) 100 mg PO BID [facility] Last Admin: 01/30/18 17:21 Dose: 100 mg Clopidogrel Bisulfate (Plavix) 75 mg PO DAILY [facility] Last Admin: 01/30/18 08:41 Dose: 75 mg Enoxaparin Sodium (Lovenox) 30 mg SC DAILY [facility] PRN Reason: Protocol Last Admin: 01/30/18 08:40 Dose: 30 mg Iron Sucrose 200 mg/ Sodium (Chloride) 110 mls @ 110 mls/hr IVPB DAILY@0600 [facility] Last Admin: 01/30/18 05:28 Dose: 110 mls/hr Levetiracetam (Keppra) 500 mg PO BID [facility] Last Admin: 01/30/18 17:21 Dose: 500 mg Metformin HCl (Glucophage) 500 mg PO TID [facility] Last Admin: 01/30/18 17:21 Dose: 500 mg Pantoprazole Sodium (Protonix Ec Tab) 40 mg PO DAILY [facility] Last Admin: 01/30/18 08:42 Dose: 40 mg - Labs Labs: 01/27/18 10:40 01/27/18 10:40 - Respiratory Exam Respiratory Exam: NORMAL BREATHING PATTERN - Cardiovascular Exam Cardiovascular Exam: REGULAR RHYTHM - GI/Abdominal Exam GI & Abdominal Exam: Normal Bowel Sounds Assessment and Plan - Assessment and Plan (Free Text) Assessment: Acute L Pontine ischemic CVA Hx L MCA CVA Neuro Cardiology ASA Plavix Pletal PT Swallowing?? 2 to CVA speech therapy Anemia Normochromic normocytic Fe deficieincy? Fe GI w/u needed Hematology Hypertension Dyslipidemia Diabetes A1c 7.5 Seizure disorder
[2018-01-31 06:41] LABS: BASO # 0.1 K/uL (0.0-0.2); EOS # 0.2 K/uL (0.0-0.7); HEMOGLOBIN 8.8 g/dL (12.0-18.0); LYMPH # 1.6 K/uL (1.0-4.3); LYMPH % 23.6 % (20.0-40.0); MEAN CELL VOLUME 85.3 fl (80.0-94.0); MEAN CORPUSCULAR HEMOGLOBIN 27.9 pg (27.0-31.0); MEAN CORPUSCULAR HGB CONC 32.7 g/dL (33.0-37.0); MEAN PLATELET VOLUME 7.6 fl (7.2-11.7); MONO # 0.6 K/uL (0.0-0.8); MONO % 8.7 % (0.0-10.0); NEUT # 4.4 K/uL (1.8-7.0); NEUT % 63.7 % (50.0-75.0); NRBC % 0.1 % (0.0-0.0); RBC 3.14 Mil/uL (4.40-5.90); RED CELL DISTRIBUTION WIDTH 15.8 % (11.5-14.5); WHITE BLOOD COUNT 6.9 K/uL (4.8-10.8)
[2018-01-31 06:51] LABS: CALCIUM 9.3 mg/dL (8.4-10.2)
[2018-01-31] MEDS: Enoxaparin 30 mg Syringe SC SCH (08:21)
[2018-01-31] MEDS: Pantoprazole 40 mg EC Tab PO SCH (08:22)
[2018-01-31] MEDS: Cilostazol 100 mg Tab UD PO SCH ×2 (08:22→17:08)
--- NOTE | 2018-01-31 09:01 | CP.PCM.PN ---
Subjective - Date & Time of Evaluation Date of Evaluation: 01/31/18 Time of Evaluation: 09:01 - Subjective Subjective: Mr. Davis was seen and examined at the bedside. He is alert, oriented with dysarthia improving. He denies any headache, dizziness, lightheadedness, blurred vision. He is able to follow simple commands. He has mild right side weakness. He is requesting to step up his fluid status. Explained to the patient that depending to the evaluation of speech therapist and with no s/s aspiration is some of criteria to improve diet. There was no untoward events overnight. Objective - Vital Signs/Intake and Output Vital Signs (last 24 hours): Temp Pulse Resp BP Pulse Ox 97.9 F 70 18 138/75 96 01/31/18 08:00 01/31/18 08:21 01/31/18 08:00 01/31/18 08:21 01/31/18 08:00 - Medications Medications: Current Medications Aspirin (Aspirin Chewable) 81 mg PO DAILY [facility] Last Admin: 01/31/18 08:21 Dose: 81 mg Atorvastatin Calcium (Lipitor) 10 mg PO HS [facility] Last Admin: 01/30/18 22:04 Dose: 10 mg Carvedilol (Coreg) 12.5 mg PO BID [facility] Last Admin: 01/31/18 08:21 Dose: 12.5 mg Cilostazol (Pletal) 100 mg PO BID [facility] Last Admin: 01/31/18 08:22 Dose: 100 mg Clopidogrel Bisulfate (Plavix) 75 mg PO DAILY [facility] Last Admin: 01/31/18 08:22 Dose: 75 mg Enoxaparin Sodium (Lovenox) 30 mg SC DAILY [facility] PRN Reason: Protocol Last Admin: 01/31/18 08:21 Dose: 30 mg Levetiracetam (Keppra) 500 mg PO BID [facility] Last Admin: 01/31/18 08:21 Dose: 500 mg Metformin HCl (Glucophage) 500 mg PO TID [facility] Last Admin: 01/31/18 08:21 Dose: 500 mg Pantoprazole Sodium (Protonix Ec Tab) 40 mg PO DAILY [facility] Last Admin: 01/31/18 08:22 Dose: 40 mg - Labs Labs: 01/31/18 06:00 01/31/18 06:00 - Constitutional Appears: No Acute Distress - Head Exam Head Exam: NORMAL INSPECTION - Neurological Exam Neurological Exam: Alert, Awake, Oriented x3 Neuro motor strength exam: Left Upper Extremity: 5, Right Upper Extremity: 4, Left Lower Extremity: 5, Right Lower Extremity: 4 Additional comments: Neurological unchanged from previous examination. Assessment and Plan (1) Ischemic stroke Assessment & Plan: Case discussed with Dr. Duran, continue all current medical, physical, occupational, and speech therapies. There is no new recommendations from neurology. Status: Acute
--- NOTE | 2018-01-31 10:07 | CP.PCM.PN ---
Subjective - Date & Time of Evaluation Date of Evaluation: 01/31/18 Time of Evaluation: 10:04 - Subjective Subjective: Seen on rounds seated in a wheelchair in his room. His vital signs have remained stable. There is report of occasional cough which is nonproductive. He appears comfortable and is conversant this morning. His speech appears to be gradually improving. He does report episodic coughing but is unable to determine any specific trigger. His neck is supple and trachea is midline. The pharynx is pink and the mucous membranes are moist. Moderate dysarthria still present but improving. No dullness on chest percussion. Equal expansion. Breath sounds are well heard bilaterally and there are no rales or wheezes. No rhonchi or rub. No bronchial breathing or egophony. No specific medication for cough at this time. Monitor progress as he continues speech therapy. Objective - Vital Signs/Intake and Output Vital Signs (last 24 hours): Temp Pulse Resp BP Pulse Ox 97.9 F 70 18 138/75 96 01/31/18 08:00 01/31/18 08:21 01/31/18 08:00 01/31/18 08:21 01/31/18 08:00 - Medications Medications: Current Medications Aspirin (Aspirin Chewable) 81 mg PO DAILY [facility] Last Admin: 01/31/18 08:21 Dose: 81 mg Atorvastatin Calcium (Lipitor) 10 mg PO HS [facility] Last Admin: 01/30/18 22:04 Dose: 10 mg Carvedilol (Coreg) 12.5 mg PO BID [facility] Last Admin: 01/31/18 08:21 Dose: 12.5 mg Cilostazol (Pletal) 100 mg PO BID [facility] Last Admin: 01/31/18 08:22 Dose: 100 mg Clopidogrel Bisulfate (Plavix) 75 mg PO DAILY [facility] Last Admin: 01/31/18 08:22 Dose: 75 mg Enoxaparin Sodium (Lovenox) 30 mg SC DAILY [facility] PRN Reason: Protocol Last Admin: 01/31/18 08:21 Dose: 30 mg Levetiracetam (Keppra) 500 mg PO BID [facility] Last Admin: 01/31/18 08:21 Dose: 500 mg Metformin HCl (Glucophage) 500 mg PO TID [facility] Last Admin: 01/31/18 08:21 Dose: 500 mg Pantoprazole Sodium (Protonix Ec Tab) 40 mg PO DAILY [facility] Last Admin: 01/31/18 08:22 Dose: 40 mg - Labs Labs: 01/31/18 06:00 01/31/18 06:00 Assessment and Plan (1) Cough Status: Acute (2) Ischemic stroke Status: Acute
[2018-01-31] MEDS ORDERED: Epoetin Alfa 20000 UNIT/ML Inj SC ONE (10:30)
--- NOTE | 2018-01-31 11:49 | CP.PCM.PN ---
Subjective - Date & Time of Evaluation Date of Evaluation: 01/31/18 Time of Evaluation: 10:05 - Subjective Subjective: No complaints, comfortable Objective - Vital Signs/Intake and Output Vital Signs (last 24 hours): Temp Pulse Resp BP Pulse Ox 97.9 F 70 18 138/75 96 01/31/18 08:00 01/31/18 08:21 01/31/18 08:00 01/31/18 08:21 01/31/18 08:00 - Medications Medications: Current Medications Aspirin (Aspirin Chewable) 81 mg PO DAILY [facility] Last Admin: 01/31/18 08:21 Dose: 81 mg Atorvastatin Calcium (Lipitor) 10 mg PO HS [facility] Last Admin: 01/30/18 22:04 Dose: 10 mg Carvedilol (Coreg) 12.5 mg PO BID [facility] Last Admin: 01/31/18 08:21 Dose: 12.5 mg Cilostazol (Pletal) 100 mg PO BID [facility] Last Admin: 01/31/18 08:22 Dose: 100 mg Clopidogrel Bisulfate (Plavix) 75 mg PO DAILY [facility] Last Admin: 01/31/18 08:22 Dose: 75 mg Enoxaparin Sodium (Lovenox) 30 mg SC DAILY [facility] PRN Reason: Protocol Last Admin: 01/31/18 08:21 Dose: 30 mg Levetiracetam (Keppra) 500 mg PO BID [facility] Last Admin: 01/31/18 08:21 Dose: 500 mg Metformin HCl (Glucophage) 500 mg PO TID [facility] Last Admin: 01/31/18 08:21 Dose: 500 mg Pantoprazole Sodium (Protonix Ec Tab) 40 mg PO DAILY [facility] Last Admin: 01/31/18 08:22 Dose: 40 mg - Labs Labs: 01/31/18 06:00 01/31/18 06:00 - Head Exam Head Exam: ATRAUMATIC - Eye Exam Eye Exam: Normal appearance - ENT Exam ENT Exam: Mucous Membranes Dry - Respiratory Exam Respiratory Exam: NORMAL BREATHING PATTERN - Cardiovascular Exam Cardiovascular Exam: +S1, +S2 - GI/Abdominal Exam GI & Abdominal Exam: Normal Bowel Sounds Assessment and Plan (1) Anemia Assessment & Plan: iron deficiency anemia s/p Venofer, anemia of CKD H/H fairly stable, retic low despite iron supplementation will add Procrit repeat CBC Saturday Status: Acute
--- NOTE | 2018-01-31 12:01 | CP.PCM.PN ---
Subjective - Date & Time of Evaluation Date of Evaluation: 01/31/18 Time of Evaluation: 11:00 - Subjective Subjective: patinet with no complains of any pain Objective - Vital Signs/Intake and Output Vital Signs (last 24 hours): Temp Pulse Resp BP Pulse Ox 97.9 F 70 18 138/75 96 01/31/18 08:00 01/31/18 08:21 01/31/18 08:00 01/31/18 08:21 01/31/18 08:00 - Medications Medications: Current Medications Aspirin (Aspirin Chewable) 81 mg PO DAILY [facility] Last Admin: 01/31/18 08:21 Dose: 81 mg Atorvastatin Calcium (Lipitor) 10 mg PO HS [facility] Last Admin: 01/30/18 22:04 Dose: 10 mg Carvedilol (Coreg) 12.5 mg PO BID [facility] Last Admin: 01/31/18 08:21 Dose: 12.5 mg Cilostazol (Pletal) 100 mg PO BID [facility] Last Admin: 01/31/18 08:22 Dose: 100 mg Clopidogrel Bisulfate (Plavix) 75 mg PO DAILY [facility] Last Admin: 01/31/18 08:22 Dose: 75 mg Enoxaparin Sodium (Lovenox) 30 mg SC DAILY [facility] PRN Reason: Protocol Last Admin: 01/31/18 08:21 Dose: 30 mg Levetiracetam (Keppra) 500 mg PO BID [facility] Last Admin: 01/31/18 08:21 Dose: 500 mg Metformin HCl (Glucophage) 500 mg PO TID [facility] Last Admin: 01/31/18 08:21 Dose: 500 mg Pantoprazole Sodium (Protonix Ec Tab) 40 mg PO DAILY [facility] Last Admin: 01/31/18 08:22 Dose: 40 mg - Labs Labs: 01/31/18 06:00 01/31/18 06:00 - Head Exam Head Exam: ATRAUMATIC, NORMAL INSPECTION, NORMOCEPHALIC - Eye Exam Eye Exam: EOMI, Normal appearance, PERRL Pupil Exam: NORMAL ACCOMODATION - ENT Exam ENT Exam: Mucous Membranes Moist, Normal Exam - Neck Exam Neck Exam: Full ROM, Normal Inspection - Respiratory Exam Respiratory Exam: Clear to Ausculation Bilateral, NORMAL BREATHING PATTERN - Cardiovascular Exam Cardiovascular Exam: REGULAR RHYTHM - GI/Abdominal Exam GI & Abdominal Exam: Soft, Normal Bowel Sounds - Rectal Exam Rectal Exam: NORMAL INSPECTION - Exam External exam: NORMAL EXTERNAL EXAM - Extremities Exam Extremities Exam: Full ROM, Normal Capillary Refill - Back Exam Back Exam: NORMAL INSPECTION - Neurological Exam Neurological Exam: Alert, Awake Neuro motor strength exam: Left Upper Extremity: 3, Right Upper Extremity: 3, Left Lower Extremity: 3, Right Lower Extremity: 3 - Psychiatric Exam Psychiatric exam: Normal Affect, Normal Mood - Skin Skin Exam: Dry, Intact Assessment and Plan (1) Dehydration Status: Acute (2) Ischemic stroke Assessment & Plan: planning for pt, ot and rec and speech therapy patinet on pureed diet plan for Dc home VS subacute Status: Acute (3) TIA (transient ischemic attack) Status: Acute
[2018-02-01] MEDS: Cilostazol 100 mg Tab UD PO SCH ×2 (08:16→17:17)
[2018-02-01] MEDS: Enoxaparin 30 mg Syringe SC SCH (08:16)
[2018-02-01] MEDS: Pantoprazole 40 mg EC Tab PO SCH (08:17)
--- NOTE | 2018-02-01 20:13 | CP.PCM.PN ---
Subjective - Date & Time of Evaluation Date of Evaluation: 02/08/18 Time of Evaluation: 22:22 - Subjective Subjective: Doing well Objective - Vital Signs/Intake and Output Vital Signs (last 24 hours): Temp Pulse Resp BP Pulse Ox 97.6 F 94 H 20 125/80 96 02/01/18 08:39 02/01/18 17:20 02/01/18 08:39 02/01/18 17:20 02/01/18 08:39 - Medications Medications: Current Medications Aspirin (Aspirin Chewable) 81 mg PO DAILY [facility] Last Admin: 02/01/18 08:16 Dose: 81 mg Atorvastatin Calcium (Lipitor) 10 mg PO HS [facility] Last Admin: 01/31/18 21:39 Dose: 10 mg Carvedilol (Coreg) 12.5 mg PO BID [facility] Last Admin: 02/01/18 17:20 Dose: 12.5 mg Cilostazol (Pletal) 100 mg PO BID [facility] Last Admin: 02/01/18 17:17 Dose: 100 mg Clopidogrel Bisulfate (Plavix) 75 mg PO DAILY [facility] Last Admin: 02/01/18 08:19 Dose: 75 mg Enoxaparin Sodium (Lovenox) 30 mg SC DAILY [facility] PRN Reason: Protocol Last Admin: 02/01/18 08:16 Dose: 30 mg Levetiracetam (Keppra) 500 mg PO BID [facility] Last Admin: 02/01/18 17:17 Dose: 500 mg Metformin HCl (Glucophage) 500 mg PO TID [facility] Last Admin: 02/01/18 17:16 Dose: 500 mg Pantoprazole Sodium (Protonix Ec Tab) 40 mg PO DAILY [facility] Last Admin: 02/01/18 08:17 Dose: 40 mg - Labs Labs: 01/31/18 06:00 01/31/18 06:00 - Respiratory Exam Respiratory Exam: NORMAL BREATHING PATTERN - Cardiovascular Exam Cardiovascular Exam: REGULAR RHYTHM - GI/Abdominal Exam GI & Abdominal Exam: Normal Bowel Sounds Assessment and Plan - Assessment and Plan (Free Text) Assessment: 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 2 to CVA speech therapy Anemia Normochromic normocytic Fe deficieincy? Fe CKD GI w/u needed Hematology NIDDM A1c 7.5 CKD diabetic Nephropathy Nephrology Endo Hypertension Dyslipidemia
--- NOTE | 2018-02-02 00:41 | CON ---
ENDOCRINOLOGY CONSULT DATE: LOCATION: In room 622. HISTORY OF PRESENT ILLNESS: This is a 77-year-old male with known history of type 2 diabetes on oral hypoglycemic therapy and admitted here for acute rehabilitation following a recent CVA and is now being referred for further diabetic management. PAST MEDICAL HISTORY: History of type 2 diabetes, currently on metformin given as 500 mg t.i.d.; history of hypertensive cardiovascular disease and dyslipidemia; history of seizure disorder; history of previous right MCA stroke and currently recent left acute pontine ischemic stroke and is now on antiplatelet medications as noted. FAMILY HISTORY: Positive for hypertension and diabetes. SOCIAL HISTORY: The patient has a very supportive family with previous history of smoking. REVIEW OF SYSTEMS: Admits to generalized body weakness with easy fatigability and tiredness and suboptimal energy level. Admits to occasional bifrontal headaches as noted. No chest pains or palpitations, although has recent shortness of breath on exertion with gait instability just prior to this admission. His oral intake is variable with occasional dyspepsia and also has habitual constipation. PHYSICAL EXAMINATION: GENERAL: This is an average built male in no apparent distress. VITAL SIGNS: Blood pressure of 150/90, pulse of 100 beats per minute and regular, temperature 98, respirations 20, height is 5 feet 9 inches, and weight is 156 pounds. HEENT: Head Is normocephalic. Eyes; anicteric with pink conjunctivae. Funduscopy not possible at this time. Ears, nose and throat otherwise normal. NECK: Supple. Thyroid gland is normal in size. No carotid bruits or any cervical adenopathy. CARDIOPULMONARY: Some adynamic precordium. S1 and S2 is rapid and regular. LUNGS: Clear to auscultation. ABDOMEN: Flat and soft with positive bowel sounds. EXTREMITIES: No peripheral edema. Pulses are +2 bilaterally. LABORATORY DATA: His chemistry showed a BUN of 27, sodium 145, potassium 4.1, chloride 108, CO2 of 22, glucose 117, and creatinine 1.7. His glucose levels have ranged from 111 to 147 and 152 mg/dL. His hemoglobin A1c was reported as 7.6%. ASSESSMENT: This is a 77-year-old male with slightly uncontrolled type 2 diabetes on oral hypoglycemic therapy with also history of diabetic polyneuropathy and nephropathy with prerenal azotemia as noted thereof. He also has significant history of cerebrovascular disease recent left pontine ischemic stroke and currently undergoing acute rehabilitation therapy as noted. PLAN: Plan of management, we will repeat electrolytes and chemistries tomorrow morning and if the creatinine level remains elevated, may consider switch him over from metformin therapy to Januvia at 50 mg once daily as indicated. We will also add Prandin, which is a short acting oral hypoglycemic therapy given as 0.5 mg t.i.d. before meals as ordered. We will titrate incremental as indicated to optimize metabolic control. We will obtain serial chemistries and supplement accordingly as needed. We will follow. Jadyn Mendieta MD
[2018-02-02 07:52] LABS: BASO # 0.1 K/uL (0.0-0.2); BASO % 0.8 % (0.0-2.0); EOS # 0.2 K/uL (0.0-0.7); EOS % 2.9 % (0.0-4.0); HEMOGLOBIN 8.6 g/dL (12.0-18.0); LYMPH # 1.7 K/uL (1.0-4.3); LYMPH % 22.3 % (20.0-40.0); MEAN CORPUSCULAR HEMOGLOBIN 28.1 pg (27.0-31.0); MEAN CORPUSCULAR HGB CONC 32.3 g/dL (33.0-37.0); MEAN PLATELET VOLUME 7.7 fl (7.2-11.7); MONO # 0.6 K/uL (0.0-0.8); MONO % 8.3 % (0.0-10.0); NEUT % 65.7 % (50.0-75.0); NRBC % 0.1 % (0.0-0.0); RBC 3.06 Mil/uL (4.40-5.90); RED CELL DISTRIBUTION WIDTH 17.2 % (11.5-14.5); WHITE BLOOD COUNT 7.6 K/uL (4.8-10.8)
[2018-02-02 08:11] LABS: ALBUMIN 3.6 g/dL (3.5-5.0); CALCIUM 9.3 mg/dL (8.4-10.2)
[2018-02-02] MEDS: Enoxaparin 30 mg Syringe SC SCH (08:59)
[2018-02-02] MEDS: Pantoprazole 40 mg EC Tab PO SCH (09:00)
[2018-02-02] MEDS: Cilostazol 100 mg Tab UD PO SCH ×2 (09:00→17:21)
[2018-02-02 10:54] LABS: IRON 50 ug/dL (49-181)
[2018-02-02 11:03] LABS: % IRON SATURATION 17 % (20-55); TOTAL IRON BINDING CAPACITY 293 ug/dL (250-450)
--- NOTE | 2018-02-02 14:54 | CP.PCM.PN ---
Subjective - Date & Time of Evaluation Date of Evaluation: 02/02/18 Time of Evaluation: 22:22 - Subjective Subjective: Above noted Objective - Vital Signs/Intake and Output Vital Signs (last 24 hours): Temp Pulse Resp BP Pulse Ox 97.8 F 87 19 146/76 98 02/02/18 08:33 02/02/18 08:59 02/02/18 08:33 02/02/18 08:59 02/02/18 08:33 - Medications Medications: Current Medications Aspirin (Aspirin Chewable) 81 mg PO DAILY [facility] Last Admin: 02/02/18 08:58 Dose: 81 mg Atorvastatin Calcium (Lipitor) 10 mg PO HS [facility] Last Admin: 02/01/18 21:20 Dose: 10 mg Carvedilol (Coreg) 12.5 mg PO BID [facility] Last Admin: 02/02/18 08:59 Dose: 12.5 mg Cilostazol (Pletal) 100 mg PO BID [facility] Last Admin: 02/02/18 09:00 Dose: 100 mg Clopidogrel Bisulfate (Plavix) 75 mg PO DAILY [facility] Last Admin: 02/02/18 09:00 Dose: 75 mg Enoxaparin Sodium (Lovenox) 30 mg SC DAILY [facility] PRN Reason: Protocol Last Admin: 02/02/18 08:59 Dose: 30 mg Levetiracetam (Keppra) 500 mg PO BID [facility] Last Admin: 02/02/18 08:59 Dose: 500 mg Pantoprazole Sodium (Protonix Ec Tab) 40 mg PO DAILY [facility] Last Admin: 02/02/18 09:00 Dose: 40 mg Repaglinide (Prandin) 2 mg PO TIDWM [facility] Last Admin: 02/02/18 12:26 Dose: 2 mg - Labs Labs: 02/02/18 06:20 02/02/18 06:20 - Respiratory Exam Respiratory Exam: NORMAL BREATHING PATTERN - Cardiovascular Exam Cardiovascular Exam: REGULAR RHYTHM - GI/Abdominal Exam GI & Abdominal Exam: Normal Bowel Sounds Assessment and Plan - Assessment and Plan (Free Text) Assessment: 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 2 to CVA speech therapy Anemia Normochromic normocytic Fe deficieincy? Fe CKD GI w/u needed Hematology NIDDM A1c 7.5 CKD diabetic Nephropathy Nephrology Endo Hypertension Dyslipidemia
--- NOTE | 2018-02-02 17:12 | US ---
PROCEDURE: Ultrasound of the Kidneys HISTORY: Renal failure COMPARISON: None available. TECHNIQUE: Grayscale imaging was performed. FINDINGS: RIGHT KIDNEY: Measures: 12.1 cm. Normal in size, contour and echogenicity. No stone, solid mass lesion or hydronephrosis visualized. LEFT KIDNEY: Measures: 9.3 cm. Normal in size, contour and echogenicity. No stone, solid mass lesion or hydronephrosis visualized. OTHER FINDINGS: None. IMPRESSION: No hydronephrosis or nephrolithiasis.
--- NOTE | 2018-02-02 17:15 | CP.PCM.PN ---
Subjective - Date & Time of Evaluation Date of Evaluation: 02/01/18 Time of Evaluation: 08:30 - Subjective Subjective: no acute complaints at present Objective - Vital Signs/Intake and Output Vital Signs (last 24 hours): Temp Pulse Resp BP Pulse Ox 97.8 F 87 19 146/76 98 02/02/18 08:33 02/02/18 08:59 02/02/18 08:33 02/02/18 08:59 02/02/18 08:33 - Medications Medications: Current Medications Aspirin (Aspirin Chewable) 81 mg PO DAILY [facility] Last Admin: 02/02/18 08:58 Dose: 81 mg Atorvastatin Calcium (Lipitor) 10 mg PO HS [facility] Last Admin: 02/01/18 21:20 Dose: 10 mg Carvedilol (Coreg) 12.5 mg PO BID [facility] Last Admin: 02/02/18 08:59 Dose: 12.5 mg Cilostazol (Pletal) 100 mg PO BID [facility] Last Admin: 02/02/18 09:00 Dose: 100 mg Clopidogrel Bisulfate (Plavix) 75 mg PO DAILY [facility] Last Admin: 02/02/18 09:00 Dose: 75 mg Enoxaparin Sodium (Lovenox) 30 mg SC DAILY [facility] PRN Reason: Protocol Last Admin: 02/02/18 08:59 Dose: 30 mg Levetiracetam (Keppra) 500 mg PO BID [facility] Last Admin: 02/02/18 08:59 Dose: 500 mg Pantoprazole Sodium (Protonix Ec Tab) 40 mg PO DAILY [facility] Last Admin: 02/02/18 09:00 Dose: 40 mg Repaglinide (Prandin) 2 mg PO TIDWM [facility] Last Admin: 02/02/18 12:26 Dose: 2 mg - Labs Labs: 02/02/18 06:20 02/02/18 06:20 - Head Exam Head Exam: ATRAUMATIC, NORMAL INSPECTION, NORMOCEPHALIC - Eye Exam Eye Exam: EOMI, Normal appearance Pupil Exam: NORMAL ACCOMODATION, PERRL - ENT Exam ENT Exam: Mucous Membranes Moist, Normal Exam - Neck Exam Neck Exam: Full ROM - Respiratory Exam Respiratory Exam: Clear to Ausculation Bilateral, NORMAL BREATHING PATTERN - Cardiovascular Exam Cardiovascular Exam: REGULAR RHYTHM - GI/Abdominal Exam GI & Abdominal Exam: Soft, Normal Bowel Sounds - Exam External exam: NORMAL EXTERNAL EXAM - Extremities Exam Extremities Exam: Full ROM, Normal Capillary Refill, Normal Inspection - Back Exam Back Exam: NORMAL INSPECTION - Neurological Exam Neurological Exam: Alert, Awake Neuro motor strength exam: Left Upper Extremity: 3, Right Upper Extremity: 3, Left Lower Extremity: 3, Right Lower Extremity: 3 - Psychiatric Exam Psychiatric exam: Normal Affect Assessment and Plan (1) Dehydration Status: Acute (2) Ischemic stroke Status: Acute (3) TIA (transient ischemic attack) Assessment & Plan: plan for physical, occupational therapy program for range of motion strengthening, transfers and gait training covering for Dr Crain . Dr crain to return on saturday Status: Acute
[2018-02-02 19:47] LABS: SQUAMOUS EPITHIAL < 1 /hpf (0-5); URINE AMORPHOUS SEDIMENT RARE /ul (<OCC); URINE BILIRUBIN NEGATIVE (NEGATIVE); URINE BLOOD NEGATIVE (NEGATIVE); URINE CLARITY SLIGHTY-CLOUDY (Clear); URINE COLOR YELLOW (YELLOW); URINE GLUCOSE (UA) 50 mg/dL (Normal); URINE HYALINE CAST >20 /hpf (0-2); URINE LEUKOCYTE ESTERASE NEG Leu/uL (Negative); URINE PROTEIN 100 mg/dL (NEGATIVE); URINE UROBILINOGEN 0.2-1.0 mg/dL (0.2-1.0)
--- NOTE | 2018-02-03 01:27 | CP.PCM.CON ---
History of Present Illness - History of Present Illness History of Present Illness: renal consult note HPI: 77 yr old with htn, hlp, cva currently in rehab for acute cva. is present bedside and providing most of the history, per her no prior hx of ckd. had been eatingg and drinking less initially during the hospital stay. pmh: htn hlp, cva DM denies smoking, drinking alcohol, drugs fam hx negative for kidney diseases complete ros is negative except for those noted above exam: vitals reviewed heent normal op moist no jvd ao times 3 skin normal no icterus [id number] , no edema no resp distress abd soft nd normal affect, cooperative PLAN: FRANCIE/CKD/HTN/CVA/DM no prior hx of ckd, monitor I&Os check renal USG i have ordered urinalysis, urine protein cr ratio bp continue current meds DM: recommend stopping metformin due to the FRANCIE Past Patient History - Past Medical History & Family History Past Medical History?: Yes - Past Social History Smoking Status: Former Smoker Chewing Tobacco Use: No Cigar Use: No Alcohol: None Drugs: Denies - CARDIAC Hx Hypercholesterolemia: Yes Hx Hypertension: Yes - PULMONARY Hx Respiratory Disorders: No - NEUROLOGICAL HX Cerebrovascular Accident: Yes Hx Seizures: Yes (Focal in 2010) - HEENT Hx HEENT Problems: No - RENAL Hx Chronic Kidney Disease: No - ENDOCRINE/METABOLIC Hx Diabetes Mellitus Type 2: Yes - HEMATOLOGICAL/ONCOLOGICAL Hx Blood Disorders: No Hx Human Immunodeficiency Virus (HIV): No - INTEGUMENTARY Hx Dermatological Problems: No - MUSCULOSKELETAL/RHEUMATOLOGICAL Hx Falls: No - GASTROINTESTINAL Hx Gastrointestinal Disorders: No - GENITOURINARY/GYNECOLOGICAL Hx Genitourinary Disorders: No - PSYCHIATRIC Hx Psychophysiologic Disorder: No Hx Substance Use: No - SURGICAL HISTORY Hx Surgeries: No - ANESTHESIA Hx Anesthesia: No Hx Anesthesia Reactions: No Hx Malignant Hyperthermia: No Meds Allergies/Adverse Reactions: Allergies Allergy/AdvReac Type Severity Reaction Status Date / Time No Known Allergies Allergy Verified 01/27/17 16:06 - Medications Medications: Current Medications Aspirin (Aspirin Chewable) 81 mg PO DAILY [facility] Last Admin: 02/02/18 08:58 Dose: 81 mg Atorvastatin Calcium (Lipitor) 10 mg PO HS [facility] Last Admin: 02/02/18 21:08 Dose: 10 mg Carvedilol (Coreg) 12.5 mg PO BID [facility] Last Admin: 02/02/18 17:21 Dose: 12.5 mg Cilostazol (Pletal) 100 mg PO BID [facility] Last Admin: 02/02/18 17:21 Dose: 100 mg Clopidogrel Bisulfate (Plavix) 75 mg PO DAILY [facility] Last Admin: 02/02/18 09:00 Dose: 75 mg Enoxaparin Sodium (Lovenox) 30 mg SC DAILY [facility] PRN Reason: Protocol Last Admin: 02/02/18 08:59 Dose: 30 mg Levetiracetam (Keppra) 500 mg PO BID [facility] Last Admin: 02/02/18 17:21 Dose: 500 mg Pantoprazole Sodium (Protonix Ec Tab) 40 mg PO DAILY [facility] Last Admin: 02/02/18 09:00 Dose: 40 mg Repaglinide (Prandin) 2 mg PO TIDWM [facility] Last Admin: 02/02/18 17:22 Dose: 2 mg Results - Vital Signs Recent Vital Signs: Last Vital Signs Temp 97.5 F L 02/02/18 19:45 Pulse 84 02/02/18 19:45 Resp 20 02/02/18 19:45 BP 149/79 02/02/18 19:45 Pulse Ox 99 02/02/18 19:45 - Labs Result Diagrams: 02/02/18 06:20 02/02/18 06:20 Labs: Laboratory Results - last 24 hr 02/02/18 02/02/18 02/02/18 06:20 06:20 06:21 WBC 7.6 RBC 3.06 L Hgb 8.6 L Hct 26.6 L MCV 87.0 MCH 28.1 MCHC 32.3 L RDW 17.2 H Plt Count 341 MPV 7.7 Neut % (Auto) 65.7 Lymph % (Auto) 22.3 [place] % (Auto) 8.3 Eos % (Auto) 2.9 Baso % (Auto) 0.8 Neut # (Auto) 5.0 Lymph # (Auto) 1.7 [place] # (Auto) 0.6 Eos # (Auto) 0.2 Baso # (Auto) 0.1 Sodium 145 Potassium 4.1 Chloride 107 Carbon Dioxide 23 Anion Gap 19 BUN 34 H Creatinine 2.0 H Est GFR ( Amer) 39 Est GFR (Non-Af Amer) 33 POC Glucose (mg/dL) 146 H Random Glucose 129 H Calcium 9.3 Iron TIBC % Saturation Total Bilirubin 0.3 AST 38 ALT 26 Alkaline Phosphatase 85 Total Protein 7.2 Albumin 3.6 Globulin 3.6 Albumin/Globulin Ratio 1.0 TSH 3rd Generation 2.29 Urine Color Urine Clarity Urine pH Ur Specific [place] Urine Protein Urine Glucose (UA) Urine Ketones Urine Blood Urine Nitrate Urine Bilirubin Urine Urobilinogen Ur Leukocyte Esterase Urine RBC (Auto) Urine Microscopic WBC Ur Squamous Epith Cells Amorphous Sediment Hyaline Casts 02/02/18 02/02/18 02/02/18 10:15 11:10 16:20 WBC RBC Hgb Hct MCV MCH MCHC RDW Plt Count MPV Neut % (Auto) Lymph % (Auto) [place] % (Auto) Eos % (Auto) Baso % (Auto) Neut # (Auto) Lymph # (Auto) [place] # (Auto) Eos # (Auto) Baso # (Auto) Sodium Potassium Chloride Carbon Dioxide Anion Gap BUN Creatinine Est GFR ( Amer) Est GFR (Non-Af Amer) POC Glucose (mg/dL) 176 H 108 Random Glucose Calcium Iron 50 TIBC 293 % Saturation 17 L Total Bilirubin AST ALT Alkaline Phosphatase Total Protein Albumin Globulin Albumin/Globulin Ratio TSH 3rd Generation Urine Color Urine Clarity Urine pH Ur Specific [place] Urine Protein Urine Glucose (UA) Urine Ketones Urine Blood Urine Nitrate Urine Bilirubin Urine Urobilinogen Ur Leukocyte Esterase Urine RBC (Auto) Urine Microscopic WBC Ur Squamous Epith Cells Amorphous Sediment Hyaline Casts 02/02/18 02/02/18 02/02/18 19:00 19:10 21:10 WBC RBC Hgb Hct MCV MCH MCHC RDW Plt Count MPV Neut % (Auto) Lymph % (Auto) [place] % (Auto) Eos % (Auto) Baso % (Auto) Neut # (Auto) Lymph # (Auto) [place] # (Auto) Eos # (Auto) Baso # (Auto) Sodium Potassium Chloride Carbon Dioxide Anion Gap BUN Creatinine Est GFR ( Amer) Est GFR (Non-Af Amer) POC Glucose (mg/dL) 104 Random Glucose Calcium Iron TIBC % Saturation Total Bilirubin AST ALT Alkaline Phosphatase Total Protein < 2.0 L Albumin Globulin Albumin/Globulin Ratio TSH 3rd Generation Urine Color Yellow Urine Clarity Slighty-cloudy Urine pH 5.0 Ur Specific [place] 1.018 Urine Protein 100 Urine Glucose (UA) 50 Urine Ketones Negative Urine Blood Negative Urine Nitrate Negative Urine Bilirubin Negative Urine Urobilinogen 0.2-1.0 Ur Leukocyte Esterase Neg Urine RBC (Auto) 1 Urine Microscopic WBC < 1 Ur Squamous Epith Cells < 1 Amorphous Sediment Rare H Hyaline Casts >20 H
[2018-02-03 06:39] LABS: BASO # 0.1 K/uL (0.0-0.2); EOS # 0.2 K/uL (0.0-0.7); EOS % 2.8 % (0.0-4.0); HEMOGLOBIN 8.5 g/dL (12.0-18.0); LYMPH # 1.7 K/uL (1.0-4.3); LYMPH % 22.4 % (20.0-40.0); MEAN CELL VOLUME 87.1 fl (80.0-94.0); MEAN CORPUSCULAR HEMOGLOBIN 28.2 pg (27.0-31.0); MEAN CORPUSCULAR HGB CONC 32.4 g/dL (33.0-37.0); MEAN PLATELET VOLUME 7.8 fl (7.2-11.7); MONO # 0.6 K/uL (0.0-0.8); MONO % 7.2 % (0.0-10.0); NEUT # 5.1 K/uL (1.8-7.0); NEUT % 66.6 % (50.0-75.0); NRBC % 0.1 % (0.0-0.0); RBC 3.01 Mil/uL (4.40-5.90); RED CELL DISTRIBUTION WIDTH 17.3 % (11.5-14.5); WHITE BLOOD COUNT 7.7 K/uL (4.8-10.8)
[2018-02-03] MEDS: Cilostazol 100 mg Tab UD PO SCH ×2 (08:41→16:53)
[2018-02-03] MEDS: Enoxaparin 30 mg Syringe SC SCH (08:43)
[2018-02-03] MEDS: Pantoprazole 40 mg EC Tab PO SCH (08:43)
--- NOTE | 2018-02-03 11:16 | CP.PCM.PN ---
Subjective - Date & Time of Evaluation Date of Evaluation: 02/03/18 Time of Evaluation: 11:14 - Subjective Subjective: Patient receiving rehabilitation now Awake and conscious feeling. No nausea no vomiting no Difficulty urination Objective - Vital Signs/Intake and Output Vital Signs (last 24 hours): Temp Pulse Resp BP Pulse Ox 97.9 F 84 20 141/82 97 02/03/18 07:50 02/03/18 08:41 02/03/18 07:50 02/03/18 08:41 02/03/18 07:50 - Medications Medications: Current Medications Aspirin (Aspirin Chewable) 81 mg PO DAILY [facility] Last Admin: 02/03/18 08:42 Dose: 81 mg Atorvastatin Calcium (Lipitor) 10 mg PO HS [facility] Last Admin: 02/02/18 21:08 Dose: 10 mg Carvedilol (Coreg) 12.5 mg PO BID [facility] Last Admin: 02/03/18 08:41 Dose: 12.5 mg Cilostazol (Pletal) 100 mg PO BID [facility] Last Admin: 02/03/18 08:41 Dose: 100 mg Clopidogrel Bisulfate (Plavix) 75 mg PO DAILY [facility] Last Admin: 02/03/18 08:53 Dose: 75 mg Enoxaparin Sodium (Lovenox) 30 mg SC DAILY [facility] PRN Reason: Protocol Last Admin: 02/03/18 08:43 Dose: 30 mg Levetiracetam (Keppra) 500 mg PO BID [facility] Last Admin: 02/03/18 08:42 Dose: 500 mg Pantoprazole Sodium (Protonix Ec Tab) 40 mg PO DAILY [facility] Last Admin: 02/03/18 08:43 Dose: 40 mg Repaglinide (Prandin) 2 mg PO TIDWM [facility] Last Admin: 02/03/18 08:41 Dose: 2 mg - Labs Labs: 02/03/18 06:00 02/02/18 06:20 - Constitutional Appears: No Acute Distress - ENT Exam ENT Exam: Mucous Membranes Moist - Neck Exam Neck Exam: absent: Lymphadenopathy - Respiratory Exam Respiratory Exam: NORMAL BREATHING PATTERN. absent: Chest Wall Tenderness - Cardiovascular Exam Cardiovascular Exam: absent: JVD, Rubs - GI/Abdominal Exam GI & Abdominal Exam: Soft, Normal Bowel Sounds - Extremities Exam Extremities Exam: absent: Calf Tenderness - Back Exam Back Exam: absent: CVA tenderness (L), CVA tenderness (R) - Neurological Exam Neurological Exam: Alert - Psychiatric Exam Psychiatric exam: Normal Affect - Skin Skin Exam: absent: Cyanosis Assessment and Plan (1) Acute kidney injury Assessment & Plan: Patient appears to have acute kidney injury superimposed on chronic kidney disease. Etiology is not clear at this point Baseline serum creatinine 1.2 to 1.3 Ultrasound of the kidney appears to be okay and noted Protein in the urine remained pending Other medical problem diabetes mellitus hypertension and CVA. Continue home monitoring Status: Acute (2) Ischemic stroke Status: Acute (3) Weakness of one side of body Status: Acute
--- NOTE | 2018-02-03 12:20 | PN ---
DATE: 02/02/2018 ENDOCRINOLOGY FOLLOWUP NOTE LOCATION: Room number 622. SUBJECTIVE: This is a 77-year-old male with recent uncontrolled type 2 diabetes presenting here for acute rehabilitation following a recent acute left pontine cerebrovascular event of the ischemic type and is now being followed closely for metabolic management. The biggest concern at this time is a progressive renal insufficiency and worsening azotemia and the patient is currently on metformin therapy as noted and given. His glucose levels today have ranged from 146 to 176 mg/dL. LABORATORY DATA: The latest chemistries showed a BUN of 34, sodium of 145, potassium of 4.1, chloride of 107, CO2 of 23, glucose of 129 and creatinine of 2.0. ASSESSMENT AND PLAN: So at this time, we will actually discontinue the metformin given as 500 mg t.i.d. as ordered. Instead we will be giving a short acting oral hypoglycemic therapy with Prandin given as 2 mg p.o. t.i.d. with meals as ordered. We will titrate incrementally as indicated to optimize metabolic control. We will hold off basal insulin and observe his glycemic fluctuations and clinical response thereof to this new medication. We will obtain serial chemistries and supplement accordingly needed. We will follow. Jadyn Mendieta MD
--- NOTE | 2018-02-03 19:26 | CP.PCM.PN ---
Subjective - Date & Time of Evaluation Date of Evaluation: 02/03/18 Time of Evaluation: 19:25 - Subjective Subjective: Patient seen in the room right arm IV line abdomen is distended with +tympany nursing reports poor BM will get flat plate and give fleetsx1 now Objective - Vital Signs/Intake and Output Vital Signs (last 24 hours): Temp Pulse Resp BP Pulse Ox 97.9 F 79 20 132/75 97 02/03/18 07:50 02/03/18 16:53 02/03/18 07:50 02/03/18 16:53 02/03/18 07:50 - Medications Medications: Current Medications Aspirin (Aspirin Chewable) 81 mg PO DAILY [facility] Last Admin: 02/03/18 08:42 Dose: 81 mg Atorvastatin Calcium (Lipitor) 10 mg PO HS [facility] Last Admin: 02/02/18 21:08 Dose: 10 mg Carvedilol (Coreg) 12.5 mg PO BID [facility] Last Admin: 02/03/18 16:53 Dose: 12.5 mg Cilostazol (Pletal) 100 mg PO BID [facility] Last Admin: 02/03/18 16:53 Dose: 100 mg Clopidogrel Bisulfate (Plavix) 75 mg PO DAILY [facility] Last Admin: 02/03/18 08:53 Dose: 75 mg Enoxaparin Sodium (Lovenox) 30 mg SC DAILY [facility] PRN Reason: Protocol Last Admin: 02/03/18 08:43 Dose: 30 mg Levetiracetam (Keppra) 500 mg PO BID [facility] Last Admin: 02/03/18 16:53 Dose: 500 mg Pantoprazole Sodium (Protonix Ec Tab) 40 mg PO DAILY [facility] Last Admin: 02/03/18 08:43 Dose: 40 mg Repaglinide (Prandin) 2 mg PO TIDWM [facility] Last Admin: 02/03/18 16:55 Dose: 2 mg Sodium Phosphate (Fleet Enema) 135 ml DE ONCE ONE Stop: 02/03/18 19:21 - Labs Labs: 02/03/18 06:00 02/02/18 06:20
--- NOTE | 2018-02-03 21:10 | CP.PCM.PN ---
Subjective - Date & Time of Evaluation Date of Evaluation: 02/03/18 Time of Evaluation: 22:22 - Subjective Subjective: Above noted Nephrology appreciated Objective - Vital Signs/Intake and Output Vital Signs (last 24 hours): Temp Pulse Resp BP Pulse Ox 97.9 F 79 20 132/75 97 02/03/18 07:50 02/03/18 16:53 02/03/18 07:50 02/03/18 16:53 02/03/18 07:50 - Medications Medications: Current Medications Aspirin (Aspirin Chewable) 81 mg PO DAILY [facility] Last Admin: 02/03/18 08:42 Dose: 81 mg Atorvastatin Calcium (Lipitor) 10 mg PO HS [facility] Last Admin: 02/02/18 21:08 Dose: 10 mg Carvedilol (Coreg) 12.5 mg PO BID [facility] Last Admin: 02/03/18 16:53 Dose: 12.5 mg Cilostazol (Pletal) 100 mg PO BID [facility] Last Admin: 02/03/18 16:53 Dose: 100 mg Clopidogrel Bisulfate (Plavix) 75 mg PO DAILY [facility] Last Admin: 02/03/18 08:53 Dose: 75 mg Enoxaparin Sodium (Lovenox) 30 mg SC DAILY [facility] PRN Reason: Protocol Last Admin: 02/03/18 08:43 Dose: 30 mg Levetiracetam (Keppra) 500 mg PO BID [facility] Last Admin: 02/03/18 16:53 Dose: 500 mg Pantoprazole Sodium (Protonix Ec Tab) 40 mg PO DAILY [facility] Last Admin: 02/03/18 08:43 Dose: 40 mg Repaglinide (Prandin) 2 mg PO TIDWM [facility] Last Admin: 02/03/18 16:55 Dose: 2 mg - Labs Labs: 02/03/18 06:00 02/02/18 06:20 - Respiratory Exam Respiratory Exam: NORMAL BREATHING PATTERN - Cardiovascular Exam Cardiovascular Exam: REGULAR RHYTHM - GI/Abdominal Exam GI & Abdominal Exam: Normal Bowel Sounds Assessment and Plan - Assessment and Plan (Free Text) Assessment: 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 2 to CVA speech therapy Anemia Normochromic normocytic Fe deficieincy? Fe CKD GI w/u needed Hematology NIDDM A1c 7.5 Endo CKD diabetic Nephropathy Nephrology appreciated Hypertension Dyslipidemia
--- NOTE | 2018-02-03 21:12 | PN ---
ENDOCRINOLOGY FOLLOWUP NOTE DATE: LOCATION: In room 622. SUBJECTIVE: This is a 77-year-old male with recent uncontrolled type 2 diabetes presenting here with a recent acute CVA and undergoing acute rehabilitation therapy as noted and is being followed closely for metabolic management. His glycemic levels are fluctuating, but improved and the glucose values have ranged from 106 to 152 and 197 mg/dL. He has been recently taken off metformin therapy because of progressive renal insufficiency as noted. The latest chemistry showed a BUN of 34, sodium 145, potassium 4.1, chloride 107, CO2 of 23, glucose 129, and creatinine 2.0. His TSH is 2.29 with parathyroid hormone intact level of 43. So, at this time, we will continue the modified oral hypoglycemic therapy given as Prandin at 2 mg p.o. t.i.d. with meals as ordered. We will continue the low-dose correction scale using Humalog insulin as given. We will obtain serial chemistries and supplement accordingly as needed. We will follow. Jadyn Mendieta MD
[2018-02-04] MEDS: Enoxaparin 30 mg Syringe SC SCH (08:16)
[2018-02-04] MEDS: Pantoprazole 40 mg EC Tab PO SCH (08:17)
[2018-02-04] MEDS: Cilostazol 100 mg Tab UD PO SCH ×2 (08:19→17:04)
--- NOTE | 2018-02-04 08:32 | RAD ---
HISTORY: constipation COMPARISON: No prior. FINDINGS: BOWEL: There is prominent retained fecal material identified throughout the large bowel with moderate rectal fecal impaction appreciated compatible with clinical history of constipation. No free intraperitoneal gas. Vascular calcifications are identified in the distal aortic iliac arterial distribution and is quite prominent at the visualized proximal femoral arterial distribution in the inguinal regions and thighs. BONES: No destructive bony lesion appreciable. OTHER FINDINGS: None. IMPRESSION: Pattern compatible with clinical history of compound constipation including fecal impaction at the rectum.
--- NOTE | 2018-02-04 13:15 | PSY.TMCNF ---
Nursing - Vital Signs Vital Signs (Last 8 hours): Vital Signs 02/04/18 02/04/18 02/04/18 08:17 08:27 09:00 Temperature 97.5 F L 97.5 F L Pulse Rate 78 78 78 Respiratory 20 20 Rate Blood Pressure 152/74 H 152/84 H 152/84 H O2 Sat by Pulse 96 Oximetry Pain: 0 - Precautions: Precautions: Fall Prevention, Aspiration, Seizure - Medications/Other Issues Comment: -Needs encouragement to increase ADL independence. -Abd flat plate done, (+) large amount of fecal matter throughout the colon. Fleet enema X1 done. (+) Large BM x1. - Consults Comment: Dr. Hoyt, Dr. Reid. Dr. Bravo, Dr. Abrams, Cam - Toileting Toileting: Moderate Assistance - Bladder Management Bladder Pattern: Normal Voiding Method: Toilet Bladder Management: Supervision Frequency of Accidents: 0 - Bowel Management Bowel Pattern: Normal, Constipated Bowel Management: Maximal Assistance Frequency of Accidents: 0 - Transfers Transfers: Contact Guard - ADL's ADL's: Moderate Assistance - Pain Management Comments: denies any pain - Patient/Family Teaching Comments: Care post CVA and safety precautions - Goals/Time Frame Comments: Per multidiciplinary care plan and goals - Provider Provider: Natalee MILLERN RN CRRN Physical Therapy - Bed Mobility Bed Mobility: Supervision - Transfers Wheelchair to Mat: Supervision Sit to Stand: Supervision - Ambulation Level of Assistance: Supervision Distance (ft.): 150 Assistive Devices: Rolling Walker - Stair Negotiation Stairs: Level of Assistance: Contact Guard Number of Stairs: 12 Stairs: Assistive Devices: Right Handrail - Standing Balance Static Stand: Supervision Dynamic Stand: Contact Guard Assist - Pain Pain (assessed during therapy session): 0 - Insight/Carryover Insight/Carryover: Good - Patient/Family Education Comment: Pt education provided for increased safety awareness and proper techniques during functional mobility training. - Assessment/Plan Assessment: Pt is actively participating in PT tx sessions focusing on BLE strengthening exercises, balance and endurance activities, and functional mobiltiy training. Pt currently requires S for bed mobility and transfers, S for ambulation with RW, CGA for stair negotiation (pt has elevator at home). Recommend d/c home with intermittent S from his (S for all functional mobility, rest in chair or bed when pts leaves house for 1-2 hours). Recommend home PT services. - Goals Timeframe: 1 week Goals: Sit < > supine mod I. ALl functional transfers mod I with RW. Pt will ambulate 200 ft on even/uneven surfaces with RW and supervision - Provider Therapist: deonte License Number: [id number] Occupational Therapy - Arousal/Attention/Orientation Patient Orientation: Person, Place, Time, Appropriate to Age, Appropriate to Situation - ADL/IADL Self Feeding: Supervision, Verbal Cues, Set-up Help Grooming: Set-up Help Bathing-Upper Extremity: Verbal Cues, Set-up Help, Contact Guard Bathing-Lower Extremity: Verbal Cues, Set-up Help, Minimal Assistance Dressing-Upper Extremity: Set-up Help Dressing-Lower Extremity: Verbal Cues, Set-up Help, Contact Guard, Minimal Assistance Comment: RW and hand held assist during transfers. - Sitting Balance Static Sitting: Independent without upper extremity support Dynamic Sitting: Reaches across midline, Reaches out of base of support, Reaches within base of support, Contact Guard Assist Comment: unsupported seated at edge of bed - Transfers Wheelchair to Bed Transfers: Verbal Cues, Set-up Help, Contact Guard Toilet Transfers: Verbal Cues, Set-up Help, Contact Guard Tub Transfers: Verbal Cues Comment: -pt uses RW for functional transfers/mobilty at this time. RW is safer than hand held - Upper Extremity Status Right Upper Extremity Comment: AROM is WFLS; 4/5 Left Upper Extremity Comment: AROM is WFLS; 4/5 - Pain Pain (assessed during therapy session): 0 - Insight/Carryover Insight/Carryover: Good - Patient/Family Education Comment: Pt education provided for increased safety awareness and proper techniques during functional mobility training. - Assessment/Plan Assessment: Pt is actively participating in PT tx sessions focusing on BLE strengthening exercises, balance and endurance activities, and functional mobiltiy training. Pt currently requires S for bed mobility and transfers, S for ambulation with RW, CGA for stair negotiation (pt has elevator at home). Recommend d/c home with intermittent S from his (S for all functional mobility, rest in chair or bed when pts leaves house for 1-2 hours). Recommend home PT services. - Goals Timeframe: 1 week Goals: Sit < > supine mod I. ALl functional transfers mod I with RW. Pt will ambulate 200 ft on even/uneven surfaces with RW and supervision - Provider Therapist: AJ Krishnamurthy/Mirian License Number: [id number] Speech Therapy - Consult Information Patient on Program: Yes Medical Diagnosis: CVA Treatment Diagnosis: mild pharyngeal dysphagia. mild-moderate cognitive- linguistic deficits. moderate dysarthria - Assessment Memory Impairment: Mild Speech/Articulation Impairment: Moderate Dysphagia/Swallowing Impairment: Mild - Plan Assessment: Pt is actively participating in PT tx sessions focusing on BLE strengthening exercises, balance and endurance activities, and functional mobiltiy training. Pt currently requires S for bed mobility and transfers, S for ambulation with RW, CGA for stair negotiation (pt has elevator at home). Recommend d/c home with intermittent S from his (S for all functional mobility, rest in chair or bed when pts leaves house for 1-2 hours). Recommend home PT services. - Provider Therapist: Madyson Almaraz License Number: [id number] Recreational Therapy - Participation Participation: Participates in Individual and/or Group Sessions, Monitors His/ Her Own Leisure Time - Attendance Attendance: 3-5 times per week - Activities Leisure Activities: Cards and Games - Socialization Level of Socialization: Initiates/interacts freely with care givers and peer - Diversional Time Diversional Time: television - Assessment Assessment/Plan: Pt is actively participating in PT tx sessions focusing on BLE strengthening exercises, balance and endurance activities, and functional mobiltiy training. Pt currently requires S for bed mobility and transfers, S for ambulation with RW, CGA for stair negotiation (pt has elevator at home). Recommend d/c home with intermittent S from his (S for all functional mobility, rest in chair or bed when pts leaves house for 1-2 hours). Recommend home PT services. - Provider Therapist: Juli Pérez, DIRECTOR OF MATERIALS #[id number] Nutrition - Current Diet Current Diet/ Supplement/ Feedings: Moderate consistent CHO heart healthy nectar thick liquids - Appetite Percent Meal Consumed: 50-74% - Comments Comments: Care post CVA and safety precautions - Assessment/Goals/Time Frame Assessment/Goals/Time Frame: -Needs encouragement to increase ADL independence. -Abd flat plate done, (+) large amount of fecal matter throughout the colon. Fleet enema X1 done. (+) Large BM x1. - Provider Provider: Lisa Manning RD Case Management - Psychosocial Assessment Support Systems: Amaris Davis (spouse)- [phone], Psychological Interventions/Needs: Patient is alert and oriented x3 and able to verbalize needs. Patient/Family Meeting: CM met with patient and rehab team Intervention/Goal/Outcome:: 1. Goal: Intermittent supervision overall? 2. Plan: Home with VNS and support from spouse. 3. caregiver training to be arranged. 4. DME needs. 5. f/u appts. 6. continued stay auth, LAD: 01/30. 7. continued emotional support. 8. Tentative discharge date: 02/05? with possible extension dependent on progress and authorization from insurance. - Discharge Plan Discharge Plan: Home with significant other/family, Home with services - Provider Provider: GISSELLE Stewart, PATHOLOGY TRANSCRIPTIONIST License Number: [id number] Rehabilitation Plan - Treatment Plan Treatment Plan: Physical Therapy, Occupational Therapy, Speech, Dietary, Patient /Family Education - Discharge Plan Estimated Date of Discharge: 02/05/18 Discharge to: Home
--- NOTE | 2018-02-04 13:30 | CP.PCM.PN ---
Subjective - Date & Time of Evaluation Date of Evaluation: 02/04/18 Time of Evaluation: 13:29 - Subjective Subjective: Patient seen in the room had a good response with the fleets enema KUB showed marked stool denies sob/cp set for d/c home tomorrow Objective - Vital Signs/Intake and Output Vital Signs (last 24 hours): Temp Pulse Resp BP Pulse Ox 97.5 F L 78 20 152/84 H 96 02/04/18 09:00 02/04/18 09:00 02/04/18 09:00 02/04/18 09:00 02/04/18 08:27 - Medications Medications: Current Medications Aspirin (Aspirin Chewable) 81 mg PO DAILY [facility] Last Admin: 02/04/18 08:19 Dose: 81 mg Atorvastatin Calcium (Lipitor) 10 mg PO HS [facility] Last Admin: 02/03/18 21:20 Dose: 10 mg Carvedilol (Coreg) 12.5 mg PO BID [facility] Last Admin: 02/04/18 08:17 Dose: 12.5 mg Cilostazol (Pletal) 100 mg PO BID [facility] Last Admin: 02/04/18 08:19 Dose: 100 mg Clopidogrel Bisulfate (Plavix) 75 mg PO DAILY [facility] Last Admin: 02/04/18 08:16 Dose: 75 mg Enoxaparin Sodium (Lovenox) 30 mg SC DAILY [facility] PRN Reason: Protocol Last Admin: 02/04/18 08:16 Dose: 30 mg Levetiracetam (Keppra) 500 mg PO BID [facility] Last Admin: 02/04/18 08:16 Dose: 500 mg Pantoprazole Sodium (Protonix Ec Tab) 40 mg PO DAILY [facility] Last Admin: 02/04/18 08:17 Dose: 40 mg Repaglinide (Prandin) 2 mg PO TIDWM [facility] Last Admin: 02/04/18 12:35 Dose: 2 mg - Labs Labs: 02/03/18 06:00 02/02/18 06:20
[2018-02-04] MEDS ORDERED: Ergocalciferol 50,000 Intl Units Cap PO SCH (15:00)
--- NOTE | 2018-02-04 19:51 | CP.PCM.PN ---
Subjective - Date & Time of Evaluation Date of Evaluation: 02/04/18 Time of Evaluation: 19:49 - Subjective Subjective: receiving physiotherpy and doing better no C.P. Objective - Vital Signs/Intake and Output Vital Signs (last 24 hours): Temp Pulse Resp BP Pulse Ox 97.5 F L 81 20 130/83 100 02/04/18 09:00 02/04/18 09:06 02/04/18 09:00 02/04/18 17:03 02/04/18 09:06 - Medications Medications: Current Medications Aspirin (Aspirin Chewable) 81 mg PO DAILY [facility] Last Admin: 02/04/18 08:19 Dose: 81 mg Atorvastatin Calcium (Lipitor) 10 mg PO HS [facility] Last Admin: 02/03/18 21:20 Dose: 10 mg Carvedilol (Coreg) 12.5 mg PO BID [facility] Last Admin: 02/04/18 17:03 Dose: 12.5 mg Cilostazol (Pletal) 100 mg PO BID [facility] Last Admin: 02/04/18 17:04 Dose: 100 mg Clopidogrel Bisulfate (Plavix) 75 mg PO DAILY [facility] Last Admin: 02/04/18 08:16 Dose: 75 mg Enoxaparin Sodium (Lovenox) 30 mg SC DAILY [facility] PRN Reason: Protocol Last Admin: 02/04/18 08:16 Dose: 30 mg Ergocalciferol (Drisdol 50,000 Intl Units Cap) 1 cap PO TUE [facility] Last Admin: 02/04/18 15:20 Dose: 1 cap Levetiracetam (Keppra) 500 mg PO BID [facility] Last Admin: 02/04/18 17:04 Dose: 500 mg Pantoprazole Sodium (Protonix Ec Tab) 40 mg PO DAILY [facility] Last Admin: 02/04/18 08:17 Dose: 40 mg Repaglinide (Prandin) 2 mg PO TIDWM [facility] Last Admin: 02/04/18 17:04 Dose: 2 mg - Labs Labs: 02/03/18 06:00 02/02/18 06:20 - Constitutional Appears: No Acute Distress - ENT Exam ENT Exam: Mucous Membranes Moist - Neck Exam Neck Exam: absent: Lymphadenopathy - Cardiovascular Exam Cardiovascular Exam: absent: Gallop, JVD, Rubs - GI/Abdominal Exam GI & Abdominal Exam: Soft. absent: Guarding - Extremities Exam Extremities Exam: absent: Calf Tenderness - Back Exam Back Exam: absent: CVA tenderness (L), CVA tenderness (R) - Neurological Exam Neurological Exam: Alert - Psychiatric Exam Psychiatric exam: Normal Affect - Skin Skin Exam: absent: Cyanosis Assessment and Plan (1) Acute kidney injury Assessment & Plan: Patient appears to have acute kidney injury superimposed on chronic kidney disease. Etiology is not clear at this point Baseline serum creatinine 1.2 to 1.3 kidney function stable Ultrasound of the kidney appears to be okay and noted Protein in the urine remained pending Other medical problem diabetes mellitus hypertension and CVA. Vit. D difficiency, start daljit d. Bp controlled Status: Acute (2) Ischemic stroke Status: Acute (3) Weakness of one side of body Status: Acute
--- NOTE | 2018-02-04 20:34 | CP.PCM.PN ---
Subjective - Date & Time of Evaluation Date of Evaluation: 02/04/18 Time of Evaluation: 22:22 - Subjective Subjective: Doing well Objective - Vital Signs/Intake and Output Vital Signs (last 24 hours): Temp Pulse Resp BP Pulse Ox 97.5 F L 81 20 130/83 100 02/04/18 09:00 02/04/18 09:06 02/04/18 09:00 02/04/18 17:03 02/04/18 09:06 - Medications Medications: Current Medications Aspirin (Aspirin Chewable) 81 mg PO DAILY [facility] Last Admin: 02/04/18 08:19 Dose: 81 mg Atorvastatin Calcium (Lipitor) 10 mg PO HS [facility] Last Admin: 02/03/18 21:20 Dose: 10 mg Carvedilol (Coreg) 12.5 mg PO BID [facility] Last Admin: 02/04/18 17:03 Dose: 12.5 mg Cilostazol (Pletal) 100 mg PO BID [facility] Last Admin: 02/04/18 17:04 Dose: 100 mg Clopidogrel Bisulfate (Plavix) 75 mg PO DAILY [facility] Last Admin: 02/04/18 08:16 Dose: 75 mg Enoxaparin Sodium (Lovenox) 30 mg SC DAILY [facility] PRN Reason: Protocol Last Admin: 02/04/18 08:16 Dose: 30 mg Ergocalciferol (Drisdol 50,000 Intl Units Cap) 1 cap PO TUE [facility] Last Admin: 02/04/18 15:20 Dose: 1 cap Levetiracetam (Keppra) 500 mg PO BID [facility] Last Admin: 02/04/18 17:04 Dose: 500 mg Pantoprazole Sodium (Protonix Ec Tab) 40 mg PO DAILY [facility] Last Admin: 02/04/18 08:17 Dose: 40 mg Repaglinide (Prandin) 2 mg PO TIDWM [facility] Last Admin: 02/04/18 17:04 Dose: 2 mg - Labs Labs: 02/03/18 06:00 02/02/18 06:20 - Respiratory Exam Respiratory Exam: NORMAL BREATHING PATTERN - Cardiovascular Exam Cardiovascular Exam: REGULAR RHYTHM - GI/Abdominal Exam GI & Abdominal Exam: Normal Bowel Sounds Assessment and Plan - Assessment and Plan (Free Text) Assessment: 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 2 to CVA speech therapy Anemia Normochromic normocytic Fe deficieincy? Fe CKD GI w/u needed Hematology NIDDM A1c 7.5 Endo CKD diabetic Nephropathy Nephrology appreciated Hypertension Dyslipidemia
--- NOTE | 2018-02-04 22:35 | PN ---
ENDOCRINOLOGY FOLLOWUP NOTE DATE: LOCATION: In room 622. SUBJECTIVE: This is a 77-year-old male with recent acute pontine CVA, currently undergoing rehabilitation therapy and is now being followed closely for metabolic management. He also has progressive renal insufficiency with underlying diabetic nephropathy and has been taken off metformin therapy as noted. His glycemic levels are fluctuating and have ranged from 179 to 197 last night and it was 114 to 215 mg/dL today as noted. His latest chemistry showed a BUN of 34, sodium 145, potassium 4.1, chloride 107, CO2 of 23, glucose 129, and creatinine 2.0. So, at this time, we will continue the Prandin given as 2 mg p.o. t.i.d. with meals as ordered. If hyperglycemic levels persist, then may decide to add a low dose of Januvia given as 25 mg once daily in the morning as indicated. We will observe his glycemic fluctuations overnight as noted. We will obtain serial chemistries and supplement accordingly as needed. We will also continue the low-dose correction scale using Humalog insulin as given. We will follow and advise accordingly. Jadyn Mendieta MD
[2018-02-05 07:00] LABS: BASO % 0.7 % (0.0-2.0); EOS # 0.2 K/uL (0.0-0.7); EOS % 3.5 % (0.0-4.0); HEMOGLOBIN 8.2 g/dL (12.0-18.0); LYMPH # 1.7 K/uL (1.0-4.3); LYMPH % 25.3 % (20.0-40.0); MEAN CELL VOLUME 86.7 fl (80.0-94.0); MEAN CORPUSCULAR HEMOGLOBIN 29.2 pg (27.0-31.0); MEAN CORPUSCULAR HGB CONC 33.7 g/dL (33.0-37.0); MEAN PLATELET VOLUME 7.9 fl (7.2-11.7); MONO # 0.6 K/uL (0.0-0.8); MONO % 8.3 % (0.0-10.0); NEUT # 4.2 K/uL (1.8-7.0); NEUT % 62.2 % (50.0-75.0); NRBC % 0.2 % (0.0-0.0); RBC 2.82 Mil/uL (4.40-5.90); RED CELL DISTRIBUTION WIDTH 19.2 % (11.5-14.5); WHITE BLOOD COUNT 6.7 K/uL (4.8-10.8)
[2018-02-05 07:53] LABS: ALBUMIN 3.3 g/dL (3.5-5.0); CALCIUM 9.4 mg/dL (8.4-10.2)
[2018-02-05 08:30] VITALS: BP 177/77; PULSE 80; RESP 19; TEMP 97.9; O2SAT 99
[2018-02-05] MEDS: Pantoprazole 40 mg EC Tab PO SCH (09:02)
[2018-02-05] MEDS: Enoxaparin 30 mg Syringe SC SCH (09:04)
[2018-02-05] MEDS: Cilostazol 100 mg Tab UD PO SCH (09:04)
[2018-02-05] MEDS ORDERED: Epoetin Alfa 20000 UNIT/ML Inj SC ONE (10:30)
--- NOTE | 2018-02-05 12:18 | CP.PCM.PN ---
Subjective - Date & Time of Evaluation Date of Evaluation: 02/03/18 Time of Evaluation: 09:40 - Subjective Subjective: No complaints. Objective - Vital Signs/Intake and Output Vital Signs (last 24 hours): Temp Pulse Resp BP Pulse Ox 97.9 F 80 19 177/77 H 99 02/05/18 08:29 02/05/18 09:02 02/05/18 08:29 02/05/18 09:02 02/05/18 08:29 - Medications Medications: Current Medications Aspirin (Aspirin Chewable) 81 mg PO DAILY [facility] Last Admin: 02/05/18 09:01 Dose: 81 mg Atorvastatin Calcium (Lipitor) 10 mg PO HS [facility] Last Admin: 02/04/18 21:19 Dose: 10 mg Carvedilol (Coreg) 12.5 mg PO BID [facility] Last Admin: 02/05/18 09:02 Dose: 12.5 mg Cilostazol (Pletal) 100 mg PO BID [facility] Last Admin: 02/05/18 09:04 Dose: 100 mg Clopidogrel Bisulfate (Plavix) 75 mg PO DAILY [facility] Last Admin: 02/05/18 09:01 Dose: 75 mg Ergocalciferol (Drisdol 50,000 Intl Units Cap) 1 cap PO TUE [facility] Last Admin: 02/04/18 15:20 Dose: 1 cap Levetiracetam (Keppra) 500 mg PO BID [facility] Last Admin: 02/05/18 09:02 Dose: 500 mg Pantoprazole Sodium (Protonix Ec Tab) 40 mg PO DAILY [facility] Last Admin: 02/05/18 09:02 Dose: 40 mg Repaglinide (Prandin) 2 mg PO TIDWM [facility] Last Admin: 02/05/18 11:26 Dose: 2 mg - Labs Labs: 02/05/18 04:00 02/05/18 05:20 - Head Exam Head Exam: ATRAUMATIC - Eye Exam Eye Exam: Normal appearance - ENT Exam ENT Exam: Mucous Membranes Dry - Respiratory Exam Respiratory Exam: NORMAL BREATHING PATTERN - Cardiovascular Exam Cardiovascular Exam: +S1, +S2 - GI/Abdominal Exam GI & Abdominal Exam: Normal Bowel Sounds Assessment and Plan (1) Anemia Assessment & Plan: iron deficiency and renal disease s/p IV iron and procrit Status: Acute
--- NOTE | 2018-02-05 12:19 | CP.PCM.PN ---
Subjective - Date & Time of Evaluation Date of Evaluation: 02/05/18 Time of Evaluation: 11:00 - Subjective Subjective: No complaints. Objective - Vital Signs/Intake and Output Vital Signs (last 24 hours): Temp Pulse Resp BP Pulse Ox 97.9 F 80 19 177/77 H 99 02/05/18 08:29 02/05/18 09:02 02/05/18 08:29 02/05/18 09:02 02/05/18 08:29 - Medications Medications: Current Medications Aspirin (Aspirin Chewable) 81 mg PO DAILY [facility] Last Admin: 02/05/18 09:01 Dose: 81 mg Atorvastatin Calcium (Lipitor) 10 mg PO HS [facility] Last Admin: 02/04/18 21:19 Dose: 10 mg Carvedilol (Coreg) 12.5 mg PO BID [facility] Last Admin: 02/05/18 09:02 Dose: 12.5 mg Cilostazol (Pletal) 100 mg PO BID [facility] Last Admin: 02/05/18 09:04 Dose: 100 mg Clopidogrel Bisulfate (Plavix) 75 mg PO DAILY [facility] Last Admin: 02/05/18 09:01 Dose: 75 mg Ergocalciferol (Drisdol 50,000 Intl Units Cap) 1 cap PO TUE [facility] Last Admin: 02/04/18 15:20 Dose: 1 cap Levetiracetam (Keppra) 500 mg PO BID [facility] Last Admin: 02/05/18 09:02 Dose: 500 mg Pantoprazole Sodium (Protonix Ec Tab) 40 mg PO DAILY [facility] Last Admin: 02/05/18 09:02 Dose: 40 mg Repaglinide (Prandin) 2 mg PO TIDWM [facility] Last Admin: 02/05/18 11:26 Dose: 2 mg - Labs Labs: 02/05/18 04:00 02/05/18 05:20 - Head Exam Head Exam: ATRAUMATIC - Eye Exam Eye Exam: Normal appearance - ENT Exam ENT Exam: Mucous Membranes Dry - Respiratory Exam Respiratory Exam: NORMAL BREATHING PATTERN - Cardiovascular Exam Cardiovascular Exam: +S1, +S2 - GI/Abdominal Exam GI & Abdominal Exam: Normal Bowel Sounds Assessment and Plan (1) Anemia Assessment & Plan: iron deficiency s/p iv iron anemia of CKD; will redose procrit 20,000U prior to D/C outpatient f/u Status: Acute
--- NOTE | 2018-02-05 13:12 | CP.PCM.PN ---
Subjective - Date & Time of Evaluation Date of Evaluation: 02/05/18 Time of Evaluation: 13:09 - Subjective Subjective: Patient out of the bed Feeling good and the at the bedside and the patient is being ready to be discharged Objective - Vital Signs/Intake and Output Vital Signs (last 24 hours): Temp Pulse Resp BP Pulse Ox 97.9 F 80 19 177/77 H 99 02/05/18 08:29 02/05/18 09:02 02/05/18 08:29 02/05/18 09:02 02/05/18 08:29 - Medications Medications: Current Medications Aspirin (Aspirin Chewable) 81 mg PO DAILY [facility] Last Admin: 02/05/18 09:01 Dose: 81 mg Atorvastatin Calcium (Lipitor) 10 mg PO HS [facility] [place] Last Admin: 02/04/18 21:19 Dose: 10 mg Carvedilol (Coreg) 12.5 mg PO BID [facility] Last Admin: 02/05/18 09:02 Dose: 12.5 mg Cilostazol (Pletal) 100 mg PO BID [facility] [place] Last Admin: 02/05/18 09:04 Dose: 100 mg Clopidogrel Bisulfate (Plavix) 75 mg PO DAILY [facility] [place] Last Admin: 02/05/18 09:01 Dose: 75 mg Ergocalciferol (Drisdol 50,000 Intl Units Cap) 1 cap PO TUE [facility] [place] Last Admin: 02/04/18 15:20 Dose: 1 cap Levetiracetam (Keppra) 500 mg PO BID [facility] [place] Last Admin: 02/05/18 09:02 Dose: 500 mg Pantoprazole Sodium (Protonix Ec Tab) 40 mg PO DAILY [facility] [place] Last Admin: 02/05/18 09:02 Dose: 40 mg Repaglinide (Prandin) 2 mg PO TIDWM [facility] Last Admin: 02/05/18 11:26 Dose: 2 mg - Labs Labs: 02/05/18 04:00 02/05/18 05:20 - Constitutional Appears: No Acute Distress - ENT Exam ENT Exam: Mucous Membranes Moist - Respiratory Exam Respiratory Exam: absent: Chest Wall Tenderness - Extremities Exam Extremities Exam: absent: Calf Tenderness - Back Exam Back Exam: absent: CVA tenderness (L), CVA tenderness (R) - Neurological Exam Neurological Exam: Alert - Psychiatric Exam Psychiatric exam: Normal Affect - Skin Skin Exam: absent: Cyanosis Assessment and Plan (1) Acute kidney injury Assessment & Plan: Serum creatinine improving came down 1.6 Not 100% sure about baseline serum creatinine whether he has underlying chronic kidney disease. Anemia patient receives EPO dose now Follow-up with blood tests in about couple weeks. BP still little high monitor. Status: Acute (2) Ischemic stroke Status: Acute (3) Weakness of one side of body Status: Acute
--- NOTE | 2018-02-05 18:19 | CP.PCM.PN ---
Subjective - Date & Time of Evaluation Date of Evaluation: 02/05/18 Time of Evaluation: 22:22 - Subjective Subjective: Above noted Objective - Vital Signs/Intake and Output Vital Signs (last 24 hours): Temp Pulse Resp BP Pulse Ox 97.9 F 80 19 177/77 H 99 02/05/18 08:29 02/05/18 09:02 02/05/18 08:29 02/05/18 09:02 02/05/18 08:29 - Labs Labs: 02/05/18 04:00 02/05/18 05:20 - Respiratory Exam Respiratory Exam: NORMAL BREATHING PATTERN - Cardiovascular Exam Cardiovascular Exam: REGULAR RHYTHM - GI/Abdominal Exam GI & Abdominal Exam: Normal Bowel Sounds Assessment and Plan - Assessment and Plan (Free Text) Assessment: 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 2 to CVA speech therapy Anemia Normochromic normocytic Fe deficieincy? Fe CKD GI w/u needed Hematology NIDDM A1c 7.5 Endo CKD diabetic Nephropathy creat 1.6 Nephrology appreciated Hypertension Dyslipidemia
--- NOTE | 2018-02-05 23:11 | PN ---
ENDOCRINOLOGY FOLLOWUP NOTE DATE: LOCATION: In room 622. SUBJECTIVE: This is a 77-year-old male with recent uncontrolled type 2 diabetes presenting here for acute rehabilitation following a recent CVA and is now being followed closely for metabolic management. He also has progressive renal insufficiency as noted and the latest glucose values have ranged from 141 to 239 mg/dL. His latest chemistry showed a BUN of 23, sodium 145, potassium 3.8, chloride 109, CO2 of 22, glucose 127, and creatinine 1.6. So, at this time would continue the same oral hypoglycemic therapy as given was Prandin given as 2 mg p.o. t.i.d. with meals as ordered. He will follow with his medical doctor for outpatient medical and diabetic followup. Jadyn Mendieta MD
== END 2018-02-05 13:15 | disposition home or self-care (01) | DRG 57 ==
PROVIDERS: ADMIT Family Medicine Geriatric Medicine; ATTEND Family Medicine Geriatric Medicine
PROC: F07Z5FZ Bed Mobility Treatment using Assistive, Adaptive, Supportive or Protective Equipment (ICD-10-PCS; principal; 2018-01-24)
PROC: F07Z9FZ Gait Training/Functional Ambulation Treatment using Assistive, Adaptive, Supportive or Protective Equipment (ICD-10-PCS; 2018-01-24)
PROC: F07Z8FZ Transfer Training Treatment using Assistive, Adaptive, Supportive or Protective Equipment (ICD-10-PCS; 2018-01-24)
PROC: F07L6ZZ Therapeutic Exercise Treatment of Musculoskeletal System - Lower Back / Lower Extremity (ICD-10-PCS; 2018-01-24)
PROC: F08Z1FZ Dressing Techniques Treatment using Assistive, Adaptive, Supportive or Protective Equipment (ICD-10-PCS; 2018-01-24)
PROC: F06Z6ZZ Communicative/Cognitive Integration Skills Treatment (ICD-10-PCS; 2018-01-24)
PROC: F08Z3ZZ Feeding/Eating Treatment (ICD-10-PCS; 2018-01-24)
PROC: F08Z2ZZ Grooming/Personal Hygiene Treatment (ICD-10-PCS; 2018-01-24)
DX: I69.351 Hemiplegia and hemiparesis following cerebral infarction affecting right dominant side (principal); N17.9 Acute kidney failure, unspecified; I69.322 Dysarthria following cerebral infarction; D63.1 Anemia in chronic kidney disease; E86.0 Dehydration; Z87.891 Personal history of nicotine dependence; E78.5 Hyperlipidemia, unspecified; G40.909 Epilepsy, unspecified, not intractable, without status epilepticus; E11.21 Type 2 diabetes mellitus with diabetic nephropathy; E11.65 Type 2 diabetes mellitus with hyperglycemia; E78.00 Pure hypercholesterolemia, unspecified; D50.9 Iron deficiency anemia, unspecified; I12.9 Hypertensive chronic kidney disease with stage 1 through stage 4 chronic kidney disease, or unspecified chronic kidney disease; E11.22 Type 2 diabetes mellitus with diabetic chronic kidney disease; N18.9 Chronic kidney disease, unspecified; E11.42 Type 2 diabetes mellitus with diabetic polyneuropathy; E55.9 Vitamin D deficiency, unspecified

== ENCOUNTER 2018-02-12 06:20 | Inpatient (IN) | payer MEDICARE ==
[2018-02-12 06:21] VITALS: BMI 25.1
[2018-02-12 08:10] LABS: BASO # 0.1 K/uL (0.0-0.2); BASO % 0.8 % (0.0-2.0); EOS # 0.3 K/uL (0.0-0.7); EOS % 4.1 % (0.0-4.0); HEMOGLOBIN 9.9 g/dL (12.0-18.0); LYMPH # 1.8 K/uL (1.0-4.3); LYMPH % 26.8 % (20.0-40.0); MEAN CELL VOLUME 89.8 fl (80.0-94.0); MEAN CORPUSCULAR HEMOGLOBIN 29.2 pg (27.0-31.0); MEAN CORPUSCULAR HGB CONC 32.5 g/dL (33.0-37.0); MEAN PLATELET VOLUME 7.8 fl (7.2-11.7); MONO # 0.5 K/uL (0.0-0.8); MONO % 6.9 % (0.0-10.0); NEUT % 61.4 % (50.0-75.0); NRBC % 0.1 % (0.0-0.0); RBC 3.4 Mil/uL (4.40-5.90); RED CELL DISTRIBUTION WIDTH 22.2 % (11.5-14.5); WHITE BLOOD COUNT 6.6 K/uL (4.8-10.8)
--- NOTE | 2018-02-12 08:10 | ED PDOC ---
HPI: General Adult Time Seen by Provider: 02/12/18 07:00 Chief Complaint (Nursing): GI Problem Chief Complaint (Provider): Rectal Bleeding History Per: Patient History/Exam Limitations: no limitations Onset/Duration Of Symptoms: Hrs (x 8) Current Symptoms Are (Timing): Still Present Recently: Seen In ED Additional History Per: Family () Additional Complaint(s): Lizandro is a 77 y/o male with a history of hemorrhoids and a recent CVA who was brought to the ED by his for rectal bleeding that started last night. states she found blood in the bed when they woke up this morning as well as in the toilet. Denies vomiting, fever, headache, or abdominal pain. He is currently taking ASA and plavix. Currently no active bleeding. PMD: Tiffanie Past Medical History Reviewed: Historical Data, Nursing Documentation, Vital Signs Vital Signs: Last Vital Signs Temp 98.1 F 02/13/18 20:00 Pulse 70 02/13/18 20:00 Resp 16 02/13/18 20:00 BP 157/90 H 02/13/18 20:00 Pulse Ox 100 02/13/18 21:23 - Medical History PMH: CVA (2009, January 2018), Diabetes, HTN, Hypercholesterolemia, Seizures ( Focal in 2010) Denies: HIV, Chronic Kidney Disease - Surgical History Surgical History: No Surg Hx - Family History Family History: States: Unknown Family Hx - Social History Current smoker - smoking cessation education provided: No Alcohol: None Drugs: Denies - Home Medications Home Medications: Ambulatory Orders Medication Instructions Recorded Carvedilol [Coreg] 12.5 mg PO BID 01/27/17 levETIRAcetam [Keppra] 500 mg PO BID 01/27/17 Clopidogrel [Plavix] 75 mg PO DAILY #7 tab 01/30/17 Aspirin [Aspirin Chewable] 81 mg PO DAILY chew 01/24/18 Atorvastatin [Lipitor] 10 mg PO HS 01/24/18 Cilostazol [Pletal] 100 mg PO BID 30 Days tab 02/05/18 Ergocalciferol [Drisdol 50,000 1 cap PO TUE 30 Days cap 02/05/18 Intl Units Cap] Pantoprazole [Protonix EC Tab] 40 mg PO DAILY ect 02/05/18 Repaglinide [Prandin] 2 mg PO TIDWM 30 Days tab 02/05/18 - Allergies Allergies/Adverse Reactions: Allergies Allergy/AdvReac Type Severity Reaction Status Date / Time No Known Allergies Allergy Verified 02/12/18 06:31 Review of Systems ROS Statement: Except As Marked, All Systems Reviewed And Found Negative Constitutional: Negative for: Fever, Malaise Gastrointestinal: Positive for: Hematochezia. Negative for: Vomiting, Abdominal Pain Neurological: Negative for: Headache Physical Exam - Reviewed Nursing Documentation Reviewed: Yes Vital Signs Reviewed: Yes - Physical Exam Appears: Positive for: Well, Non-toxic, No Acute Distress Cardiovascular/Chest: Positive for: Regular Rate, Rhythm. Negative for: Murmur Respiratory: Positive for: Normal Breath Sounds. Negative for: Wheezing, Respiratory Distress Gastrointestinal/Abdominal: Positive for: Normal Exam, Other (guiac done in presence of nurse, guiac positive, dark maroon stool) Rectal: Positive for: Other (dried blood, few areas spotted with red blood, rest is dark and crusted) Extremity: Positive for: Normal ROM Neurologic/Psych: Positive for: Alert, Oriented - Laboratory Results Result Diagrams: 02/13/18 12:43 02/13/18 04:40 - ECG O2 Sat by Pulse Oximetry: 100 (RA) Pulse Ox Interpretation: Normal Medical Decision Making Medical Decision Making: Time: 7:49 Initial Impression: Rectal Bleeding Initial Plan: --Blood Type and Screen --CMP --CBC --Prothrombin Time --Accucheck --Protonix Time: 9:15 --Spoke to Dr. Moreno, PMD, who recommends admission to service. Requests consults with Dr. Villegas, GI, Dr. villatoro, neurology, and , hematology. Time: 9:24 --Spoke to Dr. villatoro who is not here this week but says he will relay the information to Dr. Duran. --Spoke to Dr. Villegas who agrees with plan for admission and he will see pt. Time: 9:44 --Patient had an episode of bloody stool here in ER prior to going up to his bed upstairs. pts vitals are stable. not tachycardic or hypotensive. Scribe Attestation: Documented by Alexandro Lombardo, acting as a scribe for Duke Freeman MD Provider Scribe Attestation: All medical record entries made by the Scribe were at my direction and personally dictated by me. I have reviewed the chart and agree that the record accurately reflects my personal performance of the history, physical exam, medical decision making, and the department course for this patient. I have also personally directed, reviewed, and agree with the discharge instructions and disposition. Disposition - Clinical Impression Clinical Impression: Gastrointestinal hemorrhage - Patient ED Disposition Is Patient to be Admitted: Yes Counseled Patient/Family Regarding: Diagnosis - Disposition Disposition Time: 09:00 Condition: STABLE
[2018-02-12 08:35] LABS: ALBUMIN 3.8 g/dL (3.5-5.0); CALCIUM 8.9 mg/dL (8.4-10.2)
[2018-02-12 08:58] LABS: INR 1.1 (0.9-1.2); PROTHROMBIN TIME 11.9 Seconds (9.8-13.1)
[2018-02-12] MEDS: Lactated Ringer's 1,000 ML IV SCH (11:41)
--- NOTE | 2018-02-12 11:53 | CP.PCM.CON ---
History of Present Illness - History of Present Illness History of Present Illness: 77 year old male with a history of DM, CVA, seizure disorder, iron deficiency anemia s/p Venofer, anemia of CKD s/p Procrit, recently discharged for acute CVA on antiplatelet therapy, admitted with GI bleeding. The patients reports to a large bloody bowel movement today which prompted her to bring him to the hospital. He has seen blood streaks from time to time with bowel movements but nothing severe. Past medical history: DM, CVA, seizures Past surgical history: None Family history: Denies hematologic and oncologic problems Social history: Former tobacco Allergies: NKA Review of systems: All remaining review of systems including HEENT, cardiovascular, respiratory, gastrointestinal, genitourinary, musculoskeletal, dermatologic, neurologic, and psychiatric are negative unless mentioned in the HPI. Past Patient History - Past Medical History & Family History Past Medical History?: Yes - Past Social History Smoking Status: Former Smoker - CARDIAC Hx Cardiac Disorders: Yes - PULMONARY Hx Respiratory Disorders: No - NEUROLOGICAL Hx Neurological Disorder: Yes - HEENT Hx HEENT Problems: No - RENAL Hx Chronic Kidney Disease: No - ENDOCRINE/METABOLIC Hx Diabetes Mellitus Type 2: Yes - HEMATOLOGICAL/ONCOLOGICAL Hx Human Immunodeficiency Virus (HIV): No - INTEGUMENTARY Hx Dermatological Problems: No - MUSCULOSKELETAL/RHEUMATOLOGICAL Hx Falls: No - GASTROINTESTINAL Hx Gastrointestinal Disorders: No - GENITOURINARY/GYNECOLOGICAL Hx Genitourinary Disorders: No - PSYCHIATRIC Hx Psychophysiologic Disorder: No - SURGICAL HISTORY Hx Surgeries: No - ANESTHESIA Hx Anesthesia: No Hx Anesthesia Reactions: No Hx Malignant Hyperthermia: No Meds Allergies/Adverse Reactions: Allergies Allergy/AdvReac Type Severity Reaction Status Date / Time No Known Allergies Allergy Verified 02/12/18 06:31 - Medications Medications: Current Medications Lactated Ringer's (Lactated Ringer's) 1,000 mls @ 100 mls/hr IV .Q10H GURJIT Last Admin: 02/12/18 11:41 Dose: 100 mls/hr Levetiracetam 500 mg/ Sodium (Chloride) 105 mls @ 210 mls/hr IVPB Q12 GUR[facility] Pantoprazole Sodium (Protonix Inj) 40 mg IVP BID GURJIT Physical Exam - Head Exam Head Exam: ATRAUMATIC - Eye Exam Eye Exam: Normal appearance - ENT Exam ENT Exam: Mucous Membranes Dry - Respiratory Exam Respiratory Exam: NORMAL BREATHING PATTERN - Cardiovascular Exam Cardiovascular Exam: +S1, +S2 - GI/Abdominal Exam GI & Abdominal Exam: Normal Bowel Sounds - Extremities Exam Extremities exam: Positive for: normal inspection - Neurological Exam Neurological exam: Oriented x3 - Psychiatric Exam Psychiatric exam: Normal Affect, Normal Mood - Skin Skin Exam: Warm Results - Vital Signs Recent Vital Signs: Last Vital Signs Temp 97.9 F 02/12/18 10:51 Pulse 86 02/12/18 10:51 Resp 19 02/12/18 10:51 BP 136/76 02/12/18 10:51 Pulse Ox 99 02/12/18 10:50 - Labs Result Diagrams: 02/12/18 19:30 02/12/18 11:50 Labs: Laboratory Results - last 24 hr 02/12/18 02/12/18 02/12/18 07:54 08:00 08:00 WBC 6.6 RBC 3.40 L Hgb 9.9 L Hct 30.5 L MCV 89.8 D MCH 29.2 MCHC 32.5 L RDW 22.2 H Plt Count 385 MPV 7.8 Neut % (Auto) 61.4 Lymph % (Auto) 26.8 Jew[place] % (Auto) 6.9 Eos % (Auto) 4.1 H Baso % (Auto) 0.8 Neut # (Auto) 4.0 Lymph # (Auto) 1.8 [place] # (Auto) 0.5 Eos # (Auto) 0.3 Baso # (Auto) 0.1 PT INR Sodium 146 Potassium 4.5 Chloride 108 H Carbon Dioxide 23 Anion Gap 20 BUN 18 Creatinine 1.6 H Est GFR ( Amer) 51 Est GFR (Non-Af Amer) 42 POC Glucose (mg/dL) 127 H Random Glucose 133 H Calcium 8.9 Total Bilirubin 0.5 AST 30 ALT 24 Alkaline Phosphatase 93 Total Protein 7.5 Albumin 3.8 Globulin 3.7 Albumin/Globulin Ratio 1.0 Blood Type Antibody Screen BBK History Checked 02/12/18 02/12/18 08:00 08:00 WBC RBC Hgb Hct MCV MCH MCHC RDW Plt Count MPV Neut % (Auto) Lymph % (Auto) [place] % (Auto) Eos % (Auto) Baso % (Auto) Neut # (Auto) Lymph # (Auto) [place] # (Auto) Eos # (Auto) Baso # (Auto) PT 11.9 INR 1.1 Sodium Potassium Chloride Carbon Dioxide Anion Gap BUN Creatinine Est GFR ( Amer) Est GFR (Non-Af Amer) POC Glucose (mg/dL) Random Glucose Calcium Total Bilirubin AST ALT Alkaline Phosphatase Total Protein Albumin Globulin Albumin/Globulin Ratio Blood Type O POSITIVE Antibody Screen Negative BBK History Checked Patient has bt Assessment & Plan (1) Anemia Assessment and Plan: acute GI blood loss; transfusion support PRN and GI evaluation anemia of CKD; will give a dose of Procrit hx of iron deficiency anemia; will recheck ferritin and redose Venofer PRN Status: Acute (2) Platelet dysfunction due to drugs Assessment and Plan: aspirin, plavix, and Pletal held to receive desmopressin platelet transfusion consideration if bleeding persists/worsens; aware of potential for clotting risk given CVA Thank you for this interesting consult. Status: Acute
[2018-02-12 12:03] LABS: HEMOGLOBIN 8.8 g/dL (12.0-18.0); MEAN CELL VOLUME 89.8 fl (80.0-94.0); MEAN CORPUSCULAR HEMOGLOBIN 29.4 pg (27.0-31.0); MEAN CORPUSCULAR HGB CONC 32.8 g/dL (33.0-37.0); RBC 2.98 Mil/uL (4.40-5.90); RED CELL DISTRIBUTION WIDTH 22.5 % (11.5-14.5); WHITE BLOOD COUNT 6.5 K/uL (4.8-10.8)
[2018-02-12 12:20] LABS: CALCIUM 8.6 mg/dL (8.4-10.2)
[2018-02-12] MEDS ORDERED: Desmopressin 4 mcg/ml Inj (1 ml) IVP ONE (12:30)
--- NOTE | 2018-02-12 14:06 | CP.CCUPN ---
CCU Subjective - Physician Review Subjective (Free Text): ICU transfer for rectal bleedinM with h/o of recent CVA with h/o previous R MCA stroke, has been on ASA, Plavix and Pletal; admitted today for rectal bleeding. After having multiple if not incessant painless rectal bleeding consisting of dark maroon liquid stool, decision made to transfer to ICU for further monitoring. Hemodynamics have been stable, and has been on IVF hydration. Initial Hgb was 9.9 at 8am, now 8.8 at approx. 12noon. A dose of Desmopressin has already been ordered by GI. Other VS and I/Os reviewed. ROS: No other pertinent negs or positives on 10+ system review. Allergies: NKDA Home Meds: Asa, Lipitor, Coreg, Pletal, Plavix, Drisdol, Keppra, Protonix, Prandin. PMSFH: HTN, Seizure disorder, hyperlipidemia. All other Nursing and physician documentation reviewed to date; no new pertinent info noted relevant to current medical problems. EXAM- HEENT: no icterus, no gaze preference, pupils 3 mm equal, noicterus NECK: No JVD, supple, carotids equal upstroke bilat/no bruits CHEST: decreased BS bases, no wheezes audible HEART: regular distant, S1S2, no rubs. ABD: soft, no distention, no tenderness, BS hypoactive EXT: no edema bilat. No peripheral/ digital cyanosis, no calf tenderness or palpable cords, distal pulses intact and symmetrical. NEURO: mild left hemiparesis SKIN: no rashes, warm and dry. LABS: WBC= 6.5 HGB= 8.8 PLTs= 355 K INR: normal Na= 143 K= 4.4 CL= 11 HCO3= 20 BUN/Cr= 19/1.5 BS= 1118 IMPRESSION / MAJOR PROBLEMS NOW: 1. GI Bleed, suspect lower GI tract source versus UGIB with rapid transit 2. Acute on chronic disease anemia 3. Platelet dysfunction 2 multiple antiplatelet medications 4. H/o CVA PLAN: 1. CBC Q4-6H. 2. GI eval for appropriateness of endoscopy. Already on Q12h PPIs. 3. If Hgb drops significantly further below 8.0 and given h/o of CVA, would consider PRBCs and platelet transfusion to improve the number of functional platelets. Aware that this may exacerbate any tendency to have a recurrent Stroke event. 4. Continue RL IVFs at 100ml/hr. CCU Objective - Vital Signs / Intake & Output Vital Signs (Last 4 hours): Vital Signs Temp Pulse Resp BP Pulse Ox 02/12/18 12:15 98.0 F 83 20 165/81 H 97 02/12/18 11:57 87 19 150/77 99 02/12/18 10:51 97.9 F 86 19 136/76 02/12/18 10:50 97.9 F 86 19 136/76 99 Intake and Output (Last 8hrs): Intake & Output 02/11/18 02/12/18 02/12/18 22:59 06:59 14:59 Weight 158 lb - Medications Active Medications: Active Medications Generic Name Dose Route Start Last Admin Trade Name Freq PRN Reason Stop Dose Admin Lactated Ringer's 1,000 mls @ 100 mls/hr 02/12/18 11:45 02/12/18 11:41 Lactated Ringer's IV 100 mls/hr .Q10H GURJIT Administration Levetiracetam 500 mg/ Sodium 105 mls @ 210 mls/hr 02/12/18 21:00 Chloride IVPB Q12 GURJIT Pantoprazole Sodium 40 mg 02/12/18 21:00 Protonix Inj IVP BID GURJIT - Patient Studies Lab Studies: Lab Studies 02/12/18 02/12/18 02/12/18 Range/Units 11:50 11:50 08:00 WBC 6.5 (4.8-10.8) K/uL RBC 2.98 L (4.40-5.90) Mil/uL Hgb 8.8 L (12.0-18.0) g/dL Hct 26.8 L (35.0-51.0) % MCV 89.8 (80.0-94.0) fl MCH 29.4 (27.0-31.0) pg MCHC 32.8 L (33.0-37.0) g/dL RDW 22.5 H (11.5-14.5) % Plt Count 355 (130-400) K/uL MPV (7.2-11.7) fl Neut % (Auto) (50.0-75.0) % Lymph % (Auto) (20.0-40.0) % [place] % (Auto) (0.0-10.0) % Eos % (Auto) (0.0-4.0) % Baso % (Auto) (0.0-2.0) % Neut # (Auto) (1.8-7.0) K/uL Lymph # (Auto) (1.0-4.3) K/uL [place] # (Auto) (0.0-0.8) K/uL Eos # (Auto) (0.0-0.7) K/uL Baso # (Auto) (0.0-0.2) K/uL PT 11.9 (9.8-13.1) Seconds INR 1.1 (0.9-1.2) Sodium 143 (132-148) mmol/l Potassium 4.4 (3.6-5.0) MMOL/L Chloride 110 H (98-107) mmol/L Carbon Dioxide 20 L (22-30) mmol/L Anion Gap 17 (10-20) BUN 19 (9-20) mg/dl Creatinine 1.5 (0.8-1.5) mg/dl Est GFR ( Amer) 55 Est GFR (Non-Af Amer) 45 POC Glucose (mg/dL) (65-110) mg/dL Random Glucose 118 H (75-110) mg/dL Calcium 8.6 (8.4-10.2) mg/dL Total Bilirubin (0.2-1.3) mg/dl AST (17-59) U/L ALT (21-72) U/L Alkaline Phosphatase (38-126) U/L Total Protein (6.3-8.2) G/DL Albumin (3.5-5.0) g/dL Globulin (2.2-3.9) gm/dL Albumin/Globulin Ratio (1.0-2.1) Blood Type Antibody Screen BBK History Checked 02/12/18 02/12/18 02/12/18 Range/Units 08:00 08:00 08:00 WBC 6.6 (4.8-10.8) K/uL RBC 3.40 L (4.40-5.90) Mil/uL Hgb 9.9 L (12.0-18.0) g/dL Hct 30.5 L (35.0-51.0) % MCV 89.8 D (80.0-94.0) fl MCH 29.2 (27.0-31.0) pg MCHC 32.5 L (33.0-37.0) g/dL RDW 22.2 H (11.5-14.5) % Plt Count 385 (130-400) K/uL MPV 7.8 (7.2-11.7) fl Neut % (Auto) 61.4 (50.0-75.0) % Lymph % (Auto) 26.8 (20.0-40.0) % [place] % (Auto) 6.9 (0.0-10.0) % Eos % (Auto) 4.1 H (0.0-4.0) % Baso % (Auto) 0.8 (0.0-2.0) % Neut # (Auto) 4.0 (1.8-7.0) K/uL Lymph # (Auto) 1.8 (1.0-4.3) K/uL [place] # (Auto) 0.5 (0.0-0.8) K/uL Eos # (Auto) 0.3 (0.0-0.7) K/uL Baso # (Auto) 0.1 (0.0-0.2) K/uL PT (9.8-13.1) Seconds INR (0.9-1.2) Sodium 146 (132-148) mmol/l Potassium 4.5 (3.6-5.0) MMOL/L Chloride 108 H (98-107) mmol/L Carbon Dioxide 23 (22-30) mmol/L Anion Gap 20 (10-20) BUN 18 (9-20) mg/dl Creatinine 1.6 H (0.8-1.5) mg/dl Est GFR ( Amer) 51 Est GFR (Non-Af Amer) 42 POC Glucose (mg/dL) (65-110) mg/dL Random Glucose 133 H (75-110) mg/dL Calcium 8.9 (8.4-10.2) mg/dL Total Bilirubin 0.5 (0.2-1.3) mg/dl AST 30 (17-59) U/L ALT 24 (21-72) U/L Alkaline Phosphatase 93 (38-126) U/L Total Protein 7.5 (6.3-8.2) G/DL Albumin 3.8 (3.5-5.0) g/dL Globulin 3.7 (2.2-3.9) gm/dL Albumin/Globulin Ratio 1.0 (1.0-2.1) Blood Type O POSITIVE Antibody Screen Negative BBK History Checked Patient has bt 02/12/18 Range/Units 07:54 WBC (4.8-10.8) K/uL RBC (4.40-5.90) Mil/uL Hgb (12.0-18.0) g/dL Hct (35.0-51.0) % MCV (80.0-94.0) fl MCH (27.0-31.0) pg MCHC (33.0-37.0) g/dL RDW (11.5-14.5) % Plt Count (130-400) K/uL MPV (7.2-11.7) fl Neut % (Auto) (50.0-75.0) % Lymph % (Auto) (20.0-40.0) % [place] % (Auto) (0.0-10.0) % Eos % (Auto) (0.0-4.0) % Baso % (Auto) (0.0-2.0) % Neut # (Auto) (1.8-7.0) K/uL Lymph # (Auto) (1.0-4.3) K/uL [place] # (Auto) (0.0-0.8) K/uL Eos # (Auto) (0.0-0.7) K/uL Baso # (Auto) (0.0-0.2) K/uL PT (9.8-13.1) Seconds INR (0.9-1.2) Sodium (132-148) mmol/l Potassium (3.6-5.0) MMOL/L Chloride (98-107) mmol/L Carbon Dioxide (22-30) mmol/L Anion Gap (10-20) BUN (9-20) mg/dl Creatinine (0.8-1.5) mg/dl Est GFR ( Amer) Est GFR (Non-Af Amer) POC Glucose (mg/dL) 127 H (65-110) mg/dL Random Glucose (75-110) mg/dL Calcium (8.4-10.2) mg/dL Total Bilirubin (0.2-1.3) mg/dl AST (17-59) U/L ALT (21-72) U/L Alkaline Phosphatase (38-126) U/L Total Protein (6.3-8.2) G/DL Albumin (3.5-5.0) g/dL Globulin (2.2-3.9) gm/dL Albumin/Globulin Ratio (1.0-2.1) Blood Type Antibody Screen BBK History Checked Laboratory Results - last 24 hr 02/12/18 02/12/18 02/12/18 07:54 08:00 08:00 WBC 6.6 RBC 3.40 L Hgb 9.9 L Hct 30.5 L MCV 89.8 D MCH 29.2 MCHC 32.5 L RDW 22.2 H Plt Count 385 MPV 7.8 Neut % (Auto) 61.4 Lymph % (Auto) 26.8 [place] % (Auto) 6.9 Eos % (Auto) 4.1 H Baso % (Auto) 0.8 Neut # (Auto) 4.0 Lymph # (Auto) 1.8 [place] # (Auto) 0.5 Eos # (Auto) 0.3 Baso # (Auto) 0.1 PT INR Sodium 146 Potassium 4.5 Chloride 108 H Carbon Dioxide 23 Anion Gap 20 BUN 18 Creatinine 1.6 H Est GFR ( Amer) 51 Est GFR (Non-Af Amer) 42 POC Glucose (mg/dL) 127 H Random Glucose 133 H Calcium 8.9 Total Bilirubin 0.5 AST 30 ALT 24 Alkaline Phosphatase 93 Total Protein 7.5 Albumin 3.8 Globulin 3.7 Albumin/Globulin Ratio 1.0 Blood Type Antibody Screen BBK History Checked 02/12/18 02/12/18 02/12/18 08:00 08:00 11:50 WBC RBC Hgb Hct MCV MCH MCHC RDW Plt Count MPV Neut % (Auto) Lymph % (Auto) [place] % (Auto) Eos % (Auto) Baso % (Auto) Neut # (Auto) Lymph # (Auto) [place] # (Auto) Eos # (Auto) Baso # (Auto) PT 11.9 INR 1.1 Sodium 143 Potassium 4.4 Chloride 110 H Carbon Dioxide 20 L Anion Gap 17 BUN 19 Creatinine 1.5 Est GFR ( Amer) 55 Est GFR (Non-Af Amer) 45 POC Glucose (mg/dL) Random Glucose 118 H Calcium 8.6 Total Bilirubin AST ALT Alkaline Phosphatase Total Protein Albumin Globulin Albumin/Globulin Ratio Blood Type O POSITIVE Antibody Screen Negative BBK History Checked Patient has bt 02/12/18 11:50 WBC 6.5 RBC 2.98 L Hgb 8.8 L Hct 26.8 L MCV 89.8 MCH 29.4 MCHC 32.8 L RDW 22.5 H Plt Count 355 MPV Neut % (Auto) Lymph % (Auto) [place] % (Auto) Eos % (Auto) Baso % (Auto) Neut # (Auto) Lymph # (Auto) [place] # (Auto) Eos # (Auto) Baso # (Auto) PT INR Sodium Potassium Chloride Carbon Dioxide Anion Gap BUN Creatinine Est GFR ( Amer) Est GFR (Non-Af Amer) POC Glucose (mg/dL) Random Glucose Calcium Total Bilirubin AST ALT Alkaline Phosphatase Total Protein Albumin Globulin Albumin/Globulin Ratio Blood Type Antibody Screen BBK History Checked Fingerstick Blood Sugar Results: 127
[2018-02-12] MEDS: levETIRAcetam 500 MG in Sodium Chloride 0.9% 100 ML IVPB SCH ×2 (16:00→21:16)
--- NOTE | 2018-02-12 18:23 | CP.PCM.CON ---
History of Present Illness - History of Present Illness History of Present Illness: 77yo male with recent CVA and taking Plavix, ASA, and plavix admitted with rectal bleeding c/o dark maroon liquid. Has been bleeding continuously since this morning and was transferred to ICU when bleeding continued while on the [facility]. When patient seen by me in the ICU no active bleeding seen. Review of Systems - Constitutional Constitutional: absent: Chills - EENT Eyes: absent: Blurred Vision Ears: absent: Decreased Hearing Nose/Mouth/Throat: absent: Epistaxis - Cardiovascular Cardiovascular: absent: Chest Pain - Respiratory Respiratory: absent: Dyspnea - Gastrointestinal Gastrointestinal: absent: Abdominal Pain - Genitourinary Genitourinary: absent: Change in Urinary Stream Past Patient History - Past Medical History & Family History Past Medical History?: Yes - Past Social History Smoking Status: Former Smoker - CARDIAC Hx Cardiac Disorders: Yes Hx Hypercholesterolemia: Yes Hx Hypertension: Yes - PULMONARY Hx Respiratory Disorders: No - NEUROLOGICAL Hx Neurological Disorder: Yes HX Cerebrovascular Accident: Yes Hx Seizures: Yes - HEENT Hx HEENT Problems: No - RENAL Hx Chronic Kidney Disease: No Other/Comment: arnold - ENDOCRINE/METABOLIC Hx Diabetes Mellitus Type 2: Yes - HEMATOLOGICAL/ONCOLOGICAL Hx AIDS: No Hx Human Immunodeficiency Virus (HIV): No - INTEGUMENTARY Hx Dermatological Problems: No - MUSCULOSKELETAL/RHEUMATOLOGICAL Hx Falls: No - GASTROINTESTINAL Hx Gastrointestinal Disorders: No Hx Hemorrhoids: Yes Other/Comment: gib - GENITOURINARY/GYNECOLOGICAL Hx Genitourinary Disorders: No - PSYCHIATRIC Hx Substance Use: No - SURGICAL HISTORY Hx Surgeries: No - ANESTHESIA Hx Anesthesia: No Hx Anesthesia Reactions: No Hx Malignant Hyperthermia: No Meds Allergies/Adverse Reactions: Allergies Allergy/AdvReac Type Severity Reaction Status Date / Time No Known Allergies Allergy Verified 02/12/18 06:31 - Medications Medications: Current Medications Lactated Ringer's (Lactated Ringer's) 1,000 mls @ 100 mls/hr IV .Q10H [facility] Last Admin: 02/12/18 11:41 Dose: 100 mls/hr Levetiracetam 500 mg/ Sodium (Chloride) 105 mls @ 210 mls/hr IVPB Q12 [facility] Last Admin: 02/12/18 16:00 Dose: 210 mls/hr Pantoprazole Sodium (Protonix Inj) 40 mg IVP BID [facility] Physical Exam - Head Exam Head Exam: ATRAUMATIC - Eye Exam Eye Exam: EOMI - ENT Exam ENT Exam: Normal Exam - Respiratory Exam Respiratory Exam: NORMAL BREATHING PATTERN - Cardiovascular Exam Cardiovascular Exam: REGULAR RHYTHM - GI/Abdominal Exam GI & Abdominal Exam: Normal Bowel Sounds, Soft. absent: Tenderness - Rectal Exam Rectal Exam: Bloody Stool Additional comments: Maroon reddish stool seen. No definite hemorrhoids. Results - Vital Signs Recent Vital Signs: Last Vital Signs Temp 97.5 F L 02/12/18 16:00 Pulse 84 02/12/18 16:00 Resp 25 H 02/12/18 16:00 BP 130/74 02/12/18 16:00 Pulse Ox 94 L 02/12/18 16:00 - Labs Result Diagrams: 02/12/18 11:50 02/12/18 11:50 Labs: Laboratory Results - last 24 hr 02/12/18 02/12/18 02/12/18 07:54 08:00 08:00 WBC 6.6 RBC 3.40 L Hgb 9.9 L Hct 30.5 L MCV 89.8 D MCH 29.2 MCHC 32.5 L RDW 22.2 H Plt Count 385 MPV 7.8 Neut % (Auto) 61.4 Lymph % (Auto) 26.8 [place] % (Auto) 6.9 Eos % (Auto) 4.1 H Baso % (Auto) 0.8 Neut # (Auto) 4.0 Lymph # (Auto) 1.8 [place] # (Auto) 0.5 Eos # (Auto) 0.3 Baso # (Auto) 0.1 PT INR Sodium 146 Potassium 4.5 Chloride 108 H Carbon Dioxide 23 Anion Gap 20 BUN 18 Creatinine 1.6 H Est GFR ( Amer) 51 Est GFR (Non-Af Amer) 42 POC Glucose (mg/dL) 127 H Random Glucose 133 H Calcium 8.9 Ferritin Total Bilirubin 0.5 AST 30 ALT 24 Alkaline Phosphatase 93 Total Protein 7.5 Albumin 3.8 Globulin 3.7 Albumin/Globulin Ratio 1.0 Vitamin B12 Blood Type Antibody Screen BBK History Checked 02/12/18 02/12/18 02/12/18 08:00 08:00 11:50 WBC RBC Hgb Hct MCV MCH MCHC RDW Plt Count MPV Neut % (Auto) Lymph % (Auto) [place] % (Auto) Eos % (Auto) Baso % (Auto) Neut # (Auto) Lymph # (Auto) [place] # (Auto) Eos # (Auto) Baso # (Auto) PT 11.9 INR 1.1 Sodium 143 Potassium 4.4 Chloride 110 H Carbon Dioxide 20 L Anion Gap 17 BUN 19 Creatinine 1.5 Est GFR ( Amer) 55 Est GFR (Non-Af Amer) 45 POC Glucose (mg/dL) Random Glucose 118 H Calcium 8.6 Ferritin Total Bilirubin AST ALT Alkaline Phosphatase Total Protein Albumin Globulin Albumin/Globulin Ratio Vitamin B12 Blood Type O POSITIVE Antibody Screen Negative BBK History Checked Patient has bt 02/12/18 02/12/18 02/12/18 11:50 14:43 17:05 WBC 6.5 RBC 2.98 L Hgb 8.8 L Hct 26.8 L MCV 89.8 MCH 29.4 MCHC 32.8 L RDW 22.5 H Plt Count 355 MPV Neut % (Auto) Lymph % (Auto) [place] % (Auto) Eos % (Auto) Baso % (Auto) Neut # (Auto) Lymph # (Auto) [place] # (Auto) Eos # (Auto) Baso # (Auto) PT INR Sodium Potassium Chloride Carbon Dioxide Anion Gap BUN Creatinine Est GFR ( Amer) Est GFR (Non-Af Amer) POC Glucose (mg/dL) 88 Random Glucose Calcium Ferritin 188.0 Total Bilirubin AST ALT Alkaline Phosphatase Total Protein Albumin Globulin Albumin/Globulin Ratio Vitamin B12 698 Blood Type Antibody Screen BBK History Checked Assessment & Plan (1) GI bleed Assessment and Plan: Patient was given DDAVP earlier. Currently no active bleeding though Hgb has dropped from 9.9 to 8.8. Follow clinically . Colonoscopy Saturday. Status: Acute
[2018-02-12 19:47] LABS: HEMOGLOBIN 7.9 g/dL (12.0-18.0); MEAN CELL VOLUME 89.6 fl (80.0-94.0); MEAN CORPUSCULAR HGB CONC 32.4 g/dL (33.0-37.0); RBC 2.72 Mil/uL (4.40-5.90); RED CELL DISTRIBUTION WIDTH 22.1 % (11.5-14.5); WHITE BLOOD COUNT 6.3 K/uL (4.8-10.8)
--- NOTE | 2018-02-12 20:28 | CP.PCM.HP ---
History of Present Illness - History of Present Illness History of Present Illness: 77 yo admitted for Lower GI bleeding. Recently d/c from acute rehab following acute L CVA Pt was tx with ASA Plavix and Pletal Present on Admission - Present on Admission Any Indicators Present on Admission: No Past Patient History - Past Medical History & Family History Past Medical History?: Yes - Past Social History Smoking Status: Former Smoker - CARDIAC Hx Cardiac Disorders: Yes Hx Hypercholesterolemia: Yes Hx Hypertension: Yes - PULMONARY Hx Respiratory Disorders: No - NEUROLOGICAL Hx Neurological Disorder: Yes HX Cerebrovascular Accident: Yes Hx Seizures: Yes - HEENT Hx HEENT Problems: No - RENAL Hx Chronic Kidney Disease: No Other/Comment: [place] - ENDOCRINE/METABOLIC Hx Diabetes Mellitus Type 2: Yes - HEMATOLOGICAL/ONCOLOGICAL Hx AIDS: No Hx Human Immunodeficiency Virus (HIV): No - INTEGUMENTARY Hx Dermatological Problems: No - MUSCULOSKELETAL/RHEUMATOLOGICAL Hx Falls: No - GASTROINTESTINAL Hx Gastrointestinal Disorders: No Hx Hemorrhoids: Yes Other/Comment: gib - GENITOURINARY/GYNECOLOGICAL Hx Genitourinary Disorders: No - PSYCHIATRIC Hx Substance Use: No - SURGICAL HISTORY Hx Surgeries: No - ANESTHESIA Hx Anesthesia: No Hx Anesthesia Reactions: No Hx Malignant Hyperthermia: No Meds Allergies/Adverse Reactions: Allergies Allergy/AdvReac Type Severity Reaction Status Date / Time No Known Allergies Allergy Verified 02/12/18 06:31 Results - Vital Signs Recent Vital Signs: Last Vital Signs Temp 97.5 F L 02/12/18 16:00 Pulse 86 02/12/18 18:00 Resp 20 02/12/18 18:00 BP 123/88 02/12/18 18:00 Pulse Ox 97 02/12/18 18:00 - Labs Result Diagrams: 02/12/18 19:30 02/12/18 11:50 Labs: Laboratory Results - last 24 hr 02/12/18 02/12/18 02/12/18 07:54 08:00 08:00 WBC 6.6 RBC 3.40 L Hgb 9.9 L Hct 30.5 L MCV 89.8 D MCH 29.2 MCHC 32.5 L RDW 22.2 H Plt Count 385 MPV 7.8 Neut % (Auto) 61.4 Lymph % (Auto) 26.8 [place] % (Auto) 6.9 Eos % (Auto) 4.1 H Baso % (Auto) 0.8 Neut # (Auto) 4.0 Lymph # (Auto) 1.8 [place] # (Auto) 0.5 Eos # (Auto) 0.3 Baso # (Auto) 0.1 PT INR Sodium 146 Potassium 4.5 Chloride 108 H Carbon Dioxide 23 Anion Gap 20 BUN 18 Creatinine 1.6 H Est GFR ( Amer) 51 Est GFR (Non-Af Amer) 42 POC Glucose (mg/dL) 127 H Random Glucose 133 H Calcium 8.9 Ferritin Total Bilirubin 0.5 AST 30 ALT 24 Alkaline Phosphatase 93 Total Protein 7.5 Albumin 3.8 Globulin 3.7 Albumin/Globulin Ratio 1.0 Vitamin B12 Blood Type Antibody Screen BBK History Checked 02/12/18 02/12/18 02/12/18 08:00 08:00 11:50 WBC RBC Hgb Hct MCV MCH MCHC RDW Plt Count MPV Neut % (Auto) Lymph % (Auto) [place] % (Auto) Eos % (Auto) Baso % (Auto) Neut # (Auto) Lymph # (Auto) [place] # (Auto) Eos # (Auto) Baso # (Auto) PT 11.9 INR 1.1 Sodium 143 Potassium 4.4 Chloride 110 H Carbon Dioxide 20 L Anion Gap 17 BUN 19 Creatinine 1.5 Est GFR ( Amer) 55 Est GFR (Non-Af Amer) 45 POC Glucose (mg/dL) Random Glucose 118 H Calcium 8.6 Ferritin Total Bilirubin AST ALT Alkaline Phosphatase Total Protein Albumin Globulin Albumin/Globulin Ratio Vitamin B12 Blood Type O POSITIVE Antibody Screen Negative BBK History Checked Patient has bt 02/12/18 02/12/18 02/12/18 11:50 14:43 17:05 WBC 6.5 RBC 2.98 L Hgb 8.8 L Hct 26.8 L MCV 89.8 MCH 29.4 MCHC 32.8 L RDW 22.5 H Plt Count 355 MPV Neut % (Auto) Lymph % (Auto) [place] % (Auto) Eos % (Auto) Baso % (Auto) Neut # (Auto) Lymph # (Auto) [place] # (Auto) Eos # (Auto) Baso # (Auto) PT INR Sodium Potassium Chloride Carbon Dioxide Anion Gap BUN Creatinine Est GFR ( Amer) Est GFR (Non-Af Amer) POC Glucose (mg/dL) 88 Random Glucose Calcium Ferritin 188.0 Total Bilirubin AST ALT Alkaline Phosphatase Total Protein Albumin Globulin Albumin/Globulin Ratio Vitamin B12 698 Blood Type Antibody Screen BBK History Checked 02/12/18 19:30 WBC 6.3 RBC 2.72 L Hgb 7.9 L Hct 24.3 L MCV 89.6 MCH 29.0 MCHC 32.4 L RDW 22.1 H Plt Count 322 MPV Neut % (Auto) Lymph % (Auto) [place] % (Auto) Eos % (Auto) Baso % (Auto) Neut # (Auto) Lymph # (Auto) [place] # (Auto) Eos # (Auto) Baso # (Auto) PT INR Sodium Potassium Chloride Carbon Dioxide Anion Gap BUN Creatinine Est GFR ( Amer) Est GFR (Non-Af Amer) POC Glucose (mg/dL) Random Glucose Calcium Ferritin Total Bilirubin AST ALT Alkaline Phosphatase Total Protein Albumin Globulin Albumin/Globulin Ratio Vitamin B12 Blood Type Antibody Screen BBK History Checked Assessment & Plan - Assessment and Plan (Free Text) Assessment: LGI Bleed ? Plat dysfxn 2 to meds IVF DDAVP ICU GI Monitor closely S/P Acute L [place] ischemic CVA Hx L MCA CVA Hx Seizure disorder Neurology Cardiology Hold ASA Plavix Pletal NIDDM CKD Diabetic Nephropathy creat 1.5 Hypertension Dyslipidemia - Date & Time Date: 02/12/18 Time: 22:22
[2018-02-12] MEDS ORDERED: levETIRAcetam 500 MG in Sodium Chloride 0.9% 100 ML IVPB SCH (21:00)
[2018-02-12 22:58] LABS: FOLATE 12.2 ng/mL
[2018-02-13 05:27] LABS: BASO # 0.1 K/uL (0.0-0.2); EOS # 0.3 K/uL (0.0-0.7); EOS % 4.2 % (0.0-4.0); HEMOGLOBIN 8.6 g/dL (12.0-18.0); LYMPH # 1.7 K/uL (1.0-4.3); MEAN CELL VOLUME 90.2 fl (80.0-94.0); MEAN CORPUSCULAR HEMOGLOBIN 29.1 pg (27.0-31.0); MEAN CORPUSCULAR HGB CONC 32.3 g/dL (33.0-37.0); MEAN PLATELET VOLUME 7.1 fl (7.2-11.7); MONO # 0.5 K/uL (0.0-0.8); MONO % 8.8 % (0.0-10.0); NEUT # 3.5 K/uL (1.8-7.0); RBC 2.96 Mil/uL (4.40-5.90); RED CELL DISTRIBUTION WIDTH 21.5 % (11.5-14.5); WHITE BLOOD COUNT 6.1 K/uL (4.8-10.8)
[2018-02-13 05:41] LABS: INR 1.1 (0.9-1.2); PROTHROMBIN TIME 12.4 Seconds (9.8-13.1)
[2018-02-13 05:47] LABS: ALB/GLOB RATIO 0.9 (1.0-2.1); ALBUMIN 3.1 g/dL (3.5-5.0); ALT/SGPT 22 U/L (21-72); AST/SGOT 37 U/L (17-59); BLOOD UREA NITROGEN 20 mg/dl (9-20); CALCIUM 8.7 mg/dL (8.4-10.2); GFR AFRICAN-AMERICAN > 60; GFR NON-AFRICAN AMERICAN 54
--- NOTE | 2018-02-13 07:08 | CP.CCUPN ---
CCU Subjective - Physician Review Subjective (Free Text): Uneventful overnight, rec'd 1 unit PRBCs, frequency of stool incontinence decreased. Other VS and I/Os reviewed. ROS: No other pertinent negs or positives on 10+ system review. All other Nursing and physician documentation reviewed to date; no new pertinent info noted relevant to current medical problems. EXAM- HEENT: no icterus, no gaze preference, pupils 3 mm equal, noicterus NECK: No JVD, supple, carotids equal upstroke bilat/no bruits CHEST: decreased BS bases, no wheezes audible HEART: regular distant, S1S2, no rubs. ABD: soft, no distention, no tenderness, BS hypoactive EXT: no edema bilat. No peripheral/ digital cyanosis, no calf tenderness or palpable cords, distal pulses intact and symmetrical. NEURO: mild left hemiparesis SKIN: no rashes, warm and dry. LABS: WBC= 6.1 HGB= 8.3 PLTs= 307 K INR: normal Na= 143 K= 3.8 CL= 109 HCO3= 20 BUN/Cr= 20/1.3 BS=77 IMPRESSION / MAJOR PROBLEMS NOW: 1. GI Bleed, suspect lower GI tract source versus UGIB with rapid transit 2. Acute on chronic disease anemia 3. Platelet dysfunction 2 multiple antiplatelet medications 4. H/o CVA PLAN: 1. Will repeat CBC at 12 noon today. Platelet transfusions and more PRBCs if significant drop in Hgb evident. 2. PPi IV BID 3. Will keep NPO for now unless directed otherwise by GI / PMD. 4. Pletal effects of platelets should dissipate 2 days after discontinuation. ASA and Plavix on hold. s/p DDAVP infusion. 5. On Neurochecks, seizure precautions; SCDs on. CCU Objective - Vital Signs / Intake & Output Intake and Output (Last 8hrs): Intake & Output 02/12/18 02/13/18 02/13/18 22:59 06:59 14:59 Intake Total 1230 535 Output Total 300 Balance 1230 235 Intake: IV 700 200 Intake, Piggyback 250 Oral 280 10 Blood Product 325 Output: Urine 300 Urine, Voided 300 Other: # Voids Urine, Voided 1 1 # Bowel Movements 1 - Medications Active Medications: Active Medications Generic Name Dose Route Start Last Admin Trade Name Freq PRN Reason Stop Dose Admin Lactated Ringer's 1,000 mls @ 100 mls/hr 02/12/18 11:45 02/12/18 11:41 Lactated Ringer's IV 100 mls/hr .Q10H GURJIT Administration Levetiracetam 500 mg/ Sodium 105 mls @ 210 mls/hr 02/12/18 14:15 02/12/18 21: 16 Chloride IVPB 210 mls/hr Q12 GURJIT Administration Pantoprazole Sodium 40 mg 02/12/18 21:00 02/12/18 21:16 Protonix Inj IVP 40 mg BID GURJIT Administration - Patient Studies Lab Studies: Lab Studies 02/13/18 02/13/18 02/13/18 Range/Units 04:40 04:40 04:40 WBC 6.1 (4.8-10.8) K/uL RBC 2.96 L (4.40-5.90) Mil/uL Hgb 8.6 L (12.0-18.0) g/dL Hct 26.7 L (35.0-51.0) % MCV 90.2 (80.0-94.0) fl MCH 29.1 (27.0-31.0) pg MCHC 32.3 L (33.0-37.0) g/dL RDW 21.5 H (11.5-14.5) % Plt Count 307 (130-400) K/uL MPV 7.1 L (7.2-11.7) fl Neut % (Auto) 58.0 (50.0-75.0) % Lymph % (Auto) 28.0 (20.0-40.0) % [place] % (Auto) 8.8 (0.0-10.0) % Eos % (Auto) 4.2 H (0.0-4.0) % Baso % (Auto) 1.0 (0.0-2.0) % Neut # (Auto) 3.5 (1.8-7.0) K/uL Lymph # (Auto) 1.7 (1.0-4.3) K/uL [place] # (Auto) 0.5 (0.0-0.8) K/uL Eos # (Auto) 0.3 (0.0-0.7) K/uL Baso # (Auto) 0.1 (0.0-0.2) K/uL PT 12.4 (9.8-13.1) Seconds INR 1.1 (0.9-1.2) APTT 33.0 (25.6-37.1) Seconds Sodium 143 (132-148) mmol/l Potassium 3.8 (3.6-5.0) MMOL/L Chloride 109 H (98-107) mmol/L Carbon Dioxide 22 (22-30) mmol/L Anion Gap 16 (10-20) BUN 20 (9-20) mg/dl Creatinine 1.3 (0.8-1.5) mg/dl Est GFR ( Amer) > 60 Est GFR (Non-Af Amer) 54 POC Glucose (mg/dL) (65-110) mg/dL Random Glucose 77 (75-110) mg/dL Calcium 8.7 (8.4-10.2) mg/dL Ferritin (17.9-464) ng/Ml Total Bilirubin 0.4 (0.2-1.3) mg/dl AST 37 (17-59) U/L ALT 22 (21-72) U/L Alkaline Phosphatase 76 (38-126) U/L Total Protein 6.4 (6.3-8.2) G/DL Albumin 3.1 L (3.5-5.0) g/dL Globulin 3.3 (2.2-3.9) gm/dL Albumin/Globulin Ratio 0.9 L (1.0-2.1) Vitamin B12 (239-931) pg/mL Folate ng/mL Blood Type Antibody Screen Crossmatch BBK History Checked 02/12/18 02/12/18 02/12/18 Range/Units 21:55 19:30 17:05 WBC 6.3 (4.8-10.8) K/uL RBC 2.72 L (4.40-5.90) Mil/uL Hgb 7.9 L (12.0-18.0) g/dL Hct 24.3 L (35.0-51.0) % MCV 89.6 (80.0-94.0) fl MCH 29.0 (27.0-31.0) pg MCHC 32.4 L (33.0-37.0) g/dL RDW 22.1 H (11.5-14.5) % Plt Count 322 (130-400) K/uL MPV (7.2-11.7) fl Neut % (Auto) (50.0-75.0) % Lymph % (Auto) (20.0-40.0) % [place] % (Auto) (0.0-10.0) % Eos % (Auto) (0.0-4.0) % Baso % (Auto) (0.0-2.0) % Neut # (Auto) (1.8-7.0) K/uL Lymph # (Auto) (1.0-4.3) K/uL [place] # (Auto) (0.0-0.8) K/uL Eos # (Auto) (0.0-0.7) K/uL Baso # (Auto) (0.0-0.2) K/uL PT (9.8-13.1) Seconds INR (0.9-1.2) APTT (25.6-37.1) Seconds Sodium (132-148) mmol/l Potassium (3.6-5.0) MMOL/L Chloride (98-107) mmol/L Carbon Dioxide (22-30) mmol/L Anion Gap (10-20) BUN (9-20) mg/dl Creatinine (0.8-1.5) mg/dl Est GFR ( Amer) Est GFR (Non-Af Amer) POC Glucose (mg/dL) 112 H 88 (65-110) mg/dL Random Glucose (75-110) mg/dL Calcium (8.4-10.2) mg/dL Ferritin (17.9-464) ng/Ml Total Bilirubin (0.2-1.3) mg/dl AST (17-59) U/L ALT (21-72) U/L Alkaline Phosphatase (38-126) U/L Total Protein (6.3-8.2) G/DL Albumin (3.5-5.0) g/dL Globulin (2.2-3.9) gm/dL Albumin/Globulin Ratio (1.0-2.1) Vitamin B12 (239-931) pg/mL Folate ng/mL Blood Type Antibody Screen Crossmatch BBK History Checked 04/18/18 04/18/18 04/18/18 Range/Units 14:43 11:50 11:50 WBC 6.5 (4.8-10.8) K/uL RBC 2.98 L (4.40-5.90) Mil/uL Hgb 8.8 L (12.0-18.0) g/dL Hct 26.8 L (35.0-51.0) % MCV 89.8 (80.0-94.0) fl MCH 29.4 (27.0-31.0) pg MCHC 32.8 L (33.0-37.0) g/dL RDW 22.5 H (11.5-14.5) % Plt Count 355 (130-400) K/uL MPV (7.2-11.7) fl Neut % (Auto) (50.0-75.0) % Lymph % (Auto) (20.0-40.0) % [place] % (Auto) (0.0-10.0) % Eos % (Auto) (0.0-4.0) % Baso % (Auto) (0.0-2.0) % Neut # (Auto) (1.8-7.0) K/uL Lymph # (Auto) (1.0-4.3) K/uL [place] # (Auto) (0.0-0.8) K/uL Eos # (Auto) (0.0-0.7) K/uL Baso # (Auto) (0.0-0.2) K/uL PT (9.8-13.1) Seconds INR (0.9-1.2) APTT (25.6-37.1) Seconds Sodium 143 (132-148) mmol/l Potassium 4.4 (3.6-5.0) MMOL/L Chloride 110 H (98-107) mmol/L Carbon Dioxide 20 L (22-30) mmol/L Anion Gap 17 (10-20) BUN 19 (9-20) mg/dl Creatinine 1.5 (0.8-1.5) mg/dl Est GFR ( Amer) 55 Est GFR (Non-Af Amer) 45 POC Glucose (mg/dL) (65-110) mg/dL Random Glucose 118 H (75-110) mg/dL Calcium 8.6 (8.4-10.2) mg/dL Ferritin 188.0 (17.9-464) ng/Ml Total Bilirubin (0.2-1.3) mg/dl AST (17-59) U/L ALT (21-72) U/L Alkaline Phosphatase (38-126) U/L Total Protein (6.3-8.2) G/DL Albumin (3.5-5.0) g/dL Globulin (2.2-3.9) gm/dL Albumin/Globulin Ratio (1.0-2.1) Vitamin B12 698 (239-931) pg/mL Folate 12.2 ng/mL Blood Type Antibody Screen Crossmatch BBK History Checked 02/12/18 02/12/18 02/12/18 Range/Units 08:00 08:00 08:00 WBC (4.8-10.8) K/uL RBC (4.40-5.90) Mil/uL Hgb (12.0-18.0) g/dL Hct (35.0-51.0) % MCV (80.0-94.0) fl MCH (27.0-31.0) pg MCHC (33.0-37.0) g/dL RDW (11.5-14.5) % Plt Count (130-400) K/uL MPV (7.2-11.7) fl Neut % (Auto) (50.0-75.0) % Lymph % (Auto) (20.0-40.0) % [place] % (Auto) (0.0-10.0) % Eos % (Auto) (0.0-4.0) % Baso % (Auto) (0.0-2.0) % Neut # (Auto) (1.8-7.0) K/uL Lymph # (Auto) (1.0-4.3) K/uL [place] # (Auto) (0.0-0.8) K/uL Eos # (Auto) (0.0-0.7) K/uL Baso # (Auto) (0.0-0.2) K/uL PT 11.9 (9.8-13.1) Seconds INR 1.1 (0.9-1.2) APTT (25.6-37.1) Seconds Sodium 146 (132-148) mmol/l Potassium 4.5 (3.6-5.0) MMOL/L Chloride 108 H (98-107) mmol/L Carbon Dioxide 23 (22-30) mmol/L Anion Gap 20 (10-20) BUN 18 (9-20) mg/dl Creatinine 1.6 H (0.8-1.5) mg/dl Est GFR ( Amer) 51 Est GFR (Non-Af Amer) 42 POC Glucose (mg/dL) (65-110) mg/dL Random Glucose 133 H (75-110) mg/dL Calcium 8.9 (8.4-10.2) mg/dL Ferritin (17.9-464) ng/Ml Total Bilirubin 0.5 (0.2-1.3) mg/dl AST 30 (17-59) U/L ALT 24 (21-72) U/L Alkaline Phosphatase 93 (38-126) U/L Total Protein 7.5 (6.3-8.2) G/DL Albumin 3.8 (3.5-5.0) g/dL Globulin 3.7 (2.2-3.9) gm/dL Albumin/Globulin Ratio 1.0 (1.0-2.1) Vitamin B12 (239-931) pg/mL Folate ng/mL Blood Type O POSITIVE Antibody Screen Negative Crossmatch See Detail BBK History Checked Patient has bt 02/12/18 02/12/18 Range/Units 08:00 07:54 WBC 6.6 (4.8-10.8) K/uL RBC 3.40 L (4.40-5.90) Mil/uL Hgb 9.9 L (12.0-18.0) g/dL Hct 30.5 L (35.0-51.0) % MCV 89.8 D (80.0-94.0) fl MCH 29.2 (27.0-31.0) pg MCHC 32.5 L (33.0-37.0) g/dL RDW 22.2 H (11.5-14.5) % Plt Count 385 (130-400) K/uL MPV 7.8 (7.2-11.7) fl Neut % (Auto) 61.4 (50.0-75.0) % Lymph % (Auto) 26.8 (20.0-40.0) % [place] % (Auto) 6.9 (0.0-10.0) % Eos % (Auto) 4.1 H (0.0-4.0) % Baso % (Auto) 0.8 (0.0-2.0) % Neut # (Auto) 4.0 (1.8-7.0) K/uL Lymph # (Auto) 1.8 (1.0-4.3) K/uL [place] # (Auto) 0.5 (0.0-0.8) K/uL Eos # (Auto) 0.3 (0.0-0.7) K/uL Baso # (Auto) 0.1 (0.0-0.2) K/uL PT (9.8-13.1) Seconds INR (0.9-1.2) APTT (25.6-37.1) Seconds Sodium (132-148) mmol/l Potassium (3.6-5.0) MMOL/L Chloride (98-107) mmol/L Carbon Dioxide (22-30) mmol/L Anion Gap (10-20) BUN (9-20) mg/dl Creatinine (0.8-1.5) mg/dl Est GFR ( Amer) Est GFR (Non-Af Amer) POC Glucose (mg/dL) 127 H (65-110) mg/dL Random Glucose (75-110) mg/dL Calcium (8.4-10.2) mg/dL Ferritin (17.9-464) ng/Ml Total Bilirubin (0.2-1.3) mg/dl AST (17-59) U/L ALT (21-72) U/L Alkaline Phosphatase (38-126) U/L Total Protein (6.3-8.2) G/DL Albumin (3.5-5.0) g/dL Globulin (2.2-3.9) gm/dL Albumin/Globulin Ratio (1.0-2.1) Vitamin B12 (239-931) pg/mL Folate ng/mL Blood Type Antibody Screen Crossmatch BBK History Checked Laboratory Results - last 24 hr 02/12/18 02/12/18 02/12/18 07:54 08:00 08:00 WBC 6.6 RBC 3.40 L Hgb 9.9 L Hct 30.5 L MCV 89.8 D MCH 29.2 MCHC 32.5 L RDW 22.2 H Plt Count 385 MPV 7.8 Neut % (Auto) 61.4 Lymph % (Auto) 26.8 [place] % (Auto) 6.9 Eos % (Auto) 4.1 H Baso % (Auto) 0.8 Neut # (Auto) 4.0 Lymph # (Auto) 1.8 [place] # (Auto) 0.5 Eos # (Auto) 0.3 Baso # (Auto) 0.1 PT INR APTT Sodium 146 Potassium 4.5 Chloride 108 H Carbon Dioxide 23 Anion Gap 20 BUN 18 Creatinine 1.6 H Est GFR ( Amer) 51 Est GFR (Non-Af Amer) 42 POC Glucose (mg/dL) 127 H Random Glucose 133 H Calcium 8.9 Ferritin Total Bilirubin 0.5 AST 30 ALT 24 Alkaline Phosphatase 93 Total Protein 7.5 Albumin 3.8 Globulin 3.7 Albumin/Globulin Ratio 1.0 Vitamin B12 Folate Blood Type Antibody Screen Crossmatch BBK History Checked 02/12/18 02/12/18 02/12/18 08:00 08:00 11:50 WBC RBC Hgb Hct MCV MCH MCHC RDW Plt Count MPV Neut % (Auto) Lymph % (Auto) [place] % (Auto) Eos % (Auto) Baso % (Auto) Neut # (Auto) Lymph # (Auto) [place] # (Auto) Eos # (Auto) Baso # (Auto) PT 11.9 INR 1.1 APTT Sodium 143 Potassium 4.4 Chloride 110 H Carbon Dioxide 20 L Anion Gap 17 BUN 19 Creatinine 1.5 Est GFR ( Amer) 55 Est GFR (Non-Af Amer) 45 POC Glucose (mg/dL) Random Glucose 118 H Calcium 8.6 Ferritin Total Bilirubin AST ALT Alkaline Phosphatase Total Protein Albumin Globulin Albumin/Globulin Ratio Vitamin B12 Folate Blood Type O POSITIVE Antibody Screen Negative Crossmatch See Detail BBK History Checked Patient has bt 02/12/18 02/12/18 02/12/18 11:50 14:43 17:05 WBC 6.5 RBC 2.98 L Hgb 8.8 L Hct 26.8 L MCV 89.8 MCH 29.4 MCHC 32.8 L RDW 22.5 H Plt Count 355 MPV Neut % (Auto) Lymph % (Auto) [place] % (Auto) Eos % (Auto) Baso % (Auto) Neut # (Auto) Lymph # (Auto) [place] # (Auto) Eos # (Auto) Baso # (Auto) PT INR APTT Sodium Potassium Chloride Carbon Dioxide Anion Gap BUN Creatinine Est GFR ( Amer) Est GFR (Non-Af Amer) POC Glucose (mg/dL) 88 Random Glucose Calcium Ferritin 188.0 Total Bilirubin AST ALT Alkaline Phosphatase Total Protein Albumin Globulin Albumin/Globulin Ratio Vitamin B12 698 Folate 12.2 Blood Type Antibody Screen Crossmatch BBK History Checked 02/12/18 02/12/18 02/13/18 19:30 21:55 04:40 WBC 6.3 6.1 RBC 2.72 L 2.96 L Hgb 7.9 L 8.6 L Hct 24.3 L 26.7 L MCV 89.6 90.2 MCH 29.0 29.1 MCHC 32.4 L 32.3 L RDW 22.1 H 21.5 H Plt Count 322 307 MPV 7.1 L Neut % (Auto) 58.0 Lymph % (Auto) 28.0 [place] % (Auto) 8.8 Eos % (Auto) 4.2 H Baso % (Auto) 1.0 Neut # (Auto) 3.5 Lymph # (Auto) 1.7 [place] # (Auto) 0.5 Eos # (Auto) 0.3 Baso # (Auto) 0.1 PT INR APTT Sodium Potassium Chloride Carbon Dioxide Anion Gap BUN Creatinine Est GFR ( Amer) Est GFR (Non-Af Amer) POC Glucose (mg/dL) 112 H Random Glucose Calcium Ferritin Total Bilirubin AST ALT Alkaline Phosphatase Total Protein Albumin Globulin Albumin/Globulin Ratio Vitamin B12 Folate Blood Type Antibody Screen Crossmatch BBK History Checked 02/13/18 02/13/18 04:40 04:40 WBC RBC Hgb Hct MCV MCH MCHC RDW Plt Count MPV Neut % (Auto) Lymph % (Auto) [place] % (Auto) Eos % (Auto) Baso % (Auto) Neut # (Auto) Lymph # (Auto) [place] # (Auto) Eos # (Auto) Baso # (Auto) PT 12.4 INR 1.1 APTT 33.0 Sodium 143 Potassium 3.8 Chloride 109 H Carbon Dioxide 22 Anion Gap 16 BUN 20 Creatinine 1.3 Est GFR ( Amer) > 60 Est GFR (Non-Af Amer) 54 POC Glucose (mg/dL) Random Glucose 77 Calcium 8.7 Ferritin Total Bilirubin 0.4 AST 37 ALT 22 Alkaline Phosphatase 76 Total Protein 6.4 Albumin 3.1 L Globulin 3.3 Albumin/Globulin Ratio 0.9 L Vitamin B12 Folate Blood Type Antibody Screen Crossmatch BBK History Checked Fingerstick Blood Sugar Results: 112 Critical Care Progress Note - Nutrition Nutrition: Nutrition Category Date Time Status Liquid Diet [DIET] Diets 02/12/18 Dinner Active
--- NOTE | 2018-02-13 08:27 | CP.PCM.PN ---
Subjective - Date & Time of Evaluation Date of Evaluation: 02/13/18 Time of Evaluation: 08:24 - Subjective Subjective: Patient stable with no bleeding over night. Objective - Vital Signs/Intake and Output Vital Signs (last 24 hours): Temp Pulse Resp BP Pulse Ox 98.0 F 76 20 181/96 H 96 02/13/18 05:00 02/13/18 07:00 02/13/18 07:00 02/13/18 07:00 02/13/18 07:00 Intake and Output: 02/13/18 02/13/18 06:59 18:59 Intake Total 835 Output Total 300 Balance 535 - Medications Medications: Current Medications Lactated Ringer's (Lactated Ringer's) 1,000 mls @ 100 mls/hr IV .Q10H [facility] Last Admin: 02/12/18 11:41 Dose: 100 mls/hr Levetiracetam 500 mg/ Sodium (Chloride) 105 mls @ 210 mls/hr IVPB Q12 GURJIT Last Admin: 02/12/18 21:16 Dose: 210 mls/hr Pantoprazole Sodium (Protonix Inj) 40 mg IVP BID GURJIT Last Admin: 02/12/18 21:16 Dose: 40 mg - Labs Labs: 02/13/18 04:40 02/13/18 04:40 PT 12.4 Seconds (9.8-13.1) 02/13/18 04:40 INR 1.1 (0.9-1.2) 02/13/18 04:40 APTT 33.0 Seconds (25.6-37.1) 02/13/18 04:40 - Head Exam Head Exam: ATRAUMATIC - Eye Exam Eye Exam: PERRL - ENT Exam ENT Exam: Mucous Membranes Moist - Neck Exam Neck Exam: Full ROM - Respiratory Exam Respiratory Exam: Clear to Ausculation Bilateral, NORMAL BREATHING PATTERN - Cardiovascular Exam Cardiovascular Exam: +S1, +S2 - GI/Abdominal Exam GI & Abdominal Exam: Soft. absent: Tenderness Assessment and Plan (1) GI bleed Assessment & Plan: No active bleeding now and HGB has stabilized. Colonoscopy tomorrow. Status: Acute
[2018-02-13] MEDS: levETIRAcetam 500 MG in Sodium Chloride 0.9% 100 ML IVPB SCH (09:58)
[2018-02-13] MEDS ORDERED: Magnesium Citrate Oral SOL (300 ml) PO ONE ×2 (11:00→19:00)
--- NOTE | 2018-02-13 12:28 | CP.PCM.PN ---
Subjective - Date & Time of Evaluation Date of Evaluation: 02/13/18 Time of Evaluation: 12:15 - Subjective Subjective: Appears comfortable, brown stool Objective - Vital Signs/Intake and Output Vital Signs (last 24 hours): Temp Pulse Resp BP Pulse Ox 98.4 F 85 18 111/60 92 L 02/13/18 12:00 02/13/18 12:00 02/13/18 12:00 02/13/18 12:00 02/13/18 12:00 Intake and Output: 02/13/18 02/13/18 06:59 18:59 Intake Total 835 350 Output Total 300 300 Balance 535 50 - Medications Medications: Current Medications Amlodipine Besylate (Norvasc) 5 mg PO DAILY [facility] Bisacodyl (Dulcolax) 20 mg PO ONCE ONE Stop: 02/13/18 14:01 Lactated Ringer's (Lactated Ringer's) 1,000 mls @ 100 mls/hr IV .Q10H [facility] Last Admin: 02/12/18 11:41 Dose: 100 mls/hr Levetiracetam (Keppra) 500 mg PO BID [facility] Magnesium Citrate (Citrate Of Mag) 300 ml PO ONCE ONE Stop: 02/13/18 19:01 Pantoprazole Sodium (Protonix Inj) 40 mg IVP BID [facility] Last Admin: 02/13/18 09:59 Dose: 40 mg - Labs Labs: 02/13/18 04:40 02/13/18 04:40 PT 12.4 Seconds (9.8-13.1) 02/13/18 04:40 INR 1.1 (0.9-1.2) 02/13/18 04:40 APTT 33.0 Seconds (25.6-37.1) 02/13/18 04:40 - Head Exam Head Exam: ATRAUMATIC - Eye Exam Eye Exam: Normal appearance - ENT Exam ENT Exam: Mucous Membranes Dry - Respiratory Exam Respiratory Exam: NORMAL BREATHING PATTERN - Cardiovascular Exam Cardiovascular Exam: +S1, +S2 - GI/Abdominal Exam GI & Abdominal Exam: Normal Bowel Sounds Assessment and Plan (1) Anemia Assessment & Plan: GI bleeding; appears improving/resolving s/p PRBC transfusion anemia of CKD; will give a dose of Procrit hx of iron deficiency anemia; normal iron stores Status: Acute (2) Platelet dysfunction due to drugs Assessment & Plan: aspirin, plavix, and Pletal stopped Status: Acute
[2018-02-13 12:46] LABS: HEMOGLOBIN 10.5 g/dL (12.0-18.0); MEAN CELL VOLUME 90.3 fl (80.0-94.0); MEAN CORPUSCULAR HEMOGLOBIN 29.7 pg (27.0-31.0); MEAN CORPUSCULAR HGB CONC 32.9 g/dL (33.0-37.0); RBC 3.53 Mil/uL (4.40-5.90); RED CELL DISTRIBUTION WIDTH 21.4 % (11.5-14.5); WHITE BLOOD COUNT 5.8 K/uL (4.8-10.8)
[2018-02-13] MEDS ORDERED: Bisacodyl 5mg EC Tab PO ONE (14:00)
[2018-02-13] MEDS: Lactated Ringer's 1,000 ML IV SCH (14:26)
--- NOTE | 2018-02-13 20:57 | CP.PCM.PN ---
Subjective - Date & Time of Evaluation Date of Evaluation: 02/13/18 Time of Evaluation: 22:22 - Subjective Subjective: No bleeding transfused 1 unit Objective - Vital Signs/Intake and Output Vital Signs (last 24 hours): Temp Pulse Resp BP Pulse Ox 98.1 F 70 16 157/90 H 98 02/13/18 20:00 02/13/18 20:00 02/13/18 20:00 02/13/18 20:00 02/13/18 20:00 Intake and Output: 02/13/18 02/14/18 18:59 06:59 Intake Total 350 200 Output Total 300 Balance 50 200 - Medications Medications: Current Medications Amlodipine Besylate (Norvasc) 5 mg PO DAILY [facility] Last Admin: 02/13/18 12:33 Dose: 5 mg Lactated Ringer's (Lactated Ringer's) 1,000 mls @ 100 mls/hr IV .Q10H [facility] Last Admin: 02/13/18 14:26 Dose: 100 mls/hr Levetiracetam (Keppra) 500 mg PO BID [facility] Last Admin: 02/13/18 16:52 Dose: 500 mg Pantoprazole Sodium (Protonix Inj) 40 mg IVP BID [facility] Last Admin: 02/13/18 16:52 Dose: 40 mg - Labs Labs: 02/13/18 12:43 02/13/18 04:40 PT 12.4 Seconds (9.8-13.1) 02/13/18 04:40 INR 1.1 (0.9-1.2) 02/13/18 04:40 APTT 33.0 Seconds (25.6-37.1) 02/13/18 04:40 - Respiratory Exam Respiratory Exam: NORMAL BREATHING PATTERN - Cardiovascular Exam Cardiovascular Exam: REGULAR RHYTHM - GI/Abdominal Exam GI & Abdominal Exam: Normal Bowel Sounds Assessment and Plan - Assessment and Plan (Free Text) Assessment: LGI Bleed ? 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
[2018-02-14] MEDS ORDERED: Dextrose 50% SYRINGE Inj (50 ml) IVP ONE ×2 (06:53→08:22)
[2018-02-14] MEDS ORDERED: Dextrose 5%/Lactated Ringer's 1,000 ML IV SCH (08:30)
--- NOTE | 2018-02-14 08:42 | CP.CCUPN ---
CCU Subjective - Physician Review Subjective (Free Text): Uneventful overnight, BMs now soft brown colored, no new abdominal symptoms; otherwise remains NPO for endoscopy today. Hypoglycemic, given 25gms D50W IVP just now. Other VS and I/Os reviewed. ROS: No other pertinent negs or positives on 10+ system review. All other Nursing and physician documentation reviewed to date; no new pertinent info noted relevant to current medical problems. EXAM- HEENT: no icterus, no gaze preference, pupils 3 mm equal, noicterus NECK: No JVD, supple, carotids equal upstroke bilat/no bruits CHEST: decreased BS bases, no wheezes audible HEART: regular distant, S1S2, no rubs. ABD: soft, no distention, no tenderness, BS hypoactive EXT: no edema bilat. No peripheral/ digital cyanosis, no calf tenderness or palpable cords, distal pulses intact and symmetrical. NEURO: mild left hemiparesis SKIN: no rashes, warm and dry. LABS: none this AM, last CBC 12 noon yesterday: WBC= 5.8 HGB= 10.5 PLTs= 364 K INR: normal Na= 143 K= 3.8 CL= 109 HCO3= 20 BUN/Cr= 20/1.3 BS=77 IMPRESSION / MAJOR PROBLEMS NOW: 1. GI Bleed, suspect lower GI tract source versus UGIB with rapid transit 2. Acute on chronic disease anemia 3. Platelet dysfunction 2 multiple antiplatelet medications 4. H/o CVA with Multi-infarct disease PLAN: 1. Endoscopy as per GI. 2. Anti-platelet meds remain on hold. Pending Endoscopy findings, will need to re-consider resuming these meds as preserving Brain function would take precedence. 3. Otherwise stable for further observation and mgmt in Telemetry unit. CCU Objective - Vital Signs / Intake & Output Vital Signs (Last 4 hours): Vital Signs Pulse Resp BP Pulse Ox 02/14/18 08:24 79 161/94 H 02/14/18 06:00 73 17 166/85 H 94 L Intake and Output (Last 8hrs): Intake & Output 02/13/18 02/14/18 02/14/18 22:59 06:59 14:59 Intake Total 400 800 200 Output Total 301 Balance 400 800 -101 Intake: IV 400 800 200 Output: Urine 300 Urine, Voided 300 Stool 1 Other: # Bowel Movements 2 1
[2018-02-14] MEDS ORDERED: Lactated Ringer's 500 ML IV ONE (08:56)
[2018-02-14] MEDS ORDERED: Propofol 10 mg/ml Inj (20 ML) ONE (09:02)
--- NOTE | 2018-02-14 09:26 | CP.PCM.PN ---
Subjective - Date & Time of Evaluation Date of Evaluation: 02/14/18 Time of Evaluation: 09:22 - Subjective Subjective: For colonscopy today. Colonoscopy could not be done due to inadequate prep Objective - Vital Signs/Intake and Output Vital Signs (last 24 hours): Temp Pulse Resp BP Pulse Ox 98.3 F 83 13 181/89 H 99 02/14/18 08:54 02/14/18 08:54 02/14/18 08:54 02/14/18 08:54 02/14/18 08:54 Intake and Output: 02/14/18 02/14/18 06:59 18:59 Intake Total 1200 250 Output Total 301 Balance 1200 -51 - Medications Medications: Current Medications Amlodipine Besylate (Norvasc) 5 mg PO DAILY [facility] Last Admin: 02/14/18 08:24 Dose: 5 mg Dextrose/Lactated Ringer's (Dextrose 5%/Lactated Ringer's) 1,000 mls @ 100 mls/ hr IV .Q10H [facility] Stop: 02/15/18 08:23 Levetiracetam (Keppra) 500 mg PO BID [facility] Last Admin: 02/13/18 16:52 Dose: 500 mg Pantoprazole Sodium (Protonix Inj) 40 mg IVP BID [facility] Last Admin: 02/13/18 16:52 Dose: 40 mg - Labs Labs: 02/13/18 12:43 02/13/18 04:40 PT 12.4 Seconds (9.8-13.1) 02/13/18 04:40 INR 1.1 (0.9-1.2) 02/13/18 04:40 APTT 33.0 Seconds (25.6-37.1) 02/13/18 04:40 - Head Exam Head Exam: ATRAUMATIC - ENT Exam ENT Exam: Normal Exam - Neck Exam Neck Exam: Full ROM - Respiratory Exam Respiratory Exam: Clear to Ausculation Bilateral - Cardiovascular Exam Cardiovascular Exam: REGULAR RHYTHM - GI/Abdominal Exam GI & Abdominal Exam: Soft, Normal Bowel Sounds Assessment and Plan (1) GI bleed Assessment & Plan: Colonoscopy aborted due to presence of stool in rectosigmoid precluding mucosal exam. No blood seen mixed with stool confirming that bleeding has stopped. May resume one antiplatelet agent. Colonoscopy as outpatient in one week. Status: Acute
--- NOTE | 2018-02-14 12:34 | CP.PCM.PN ---
Subjective - Date & Time of Evaluation Date of Evaluation: 02/14/18 Time of Evaluation: 12:15 - Subjective Subjective: Appears comfortable colonoscopy could not be done due to inadequate prep Objective - Vital Signs/Intake and Output Vital Signs (last 24 hours): Temp Pulse Resp BP Pulse Ox 97.5 F L 73 16 137/67 98 02/14/18 09:30 02/14/18 09:30 02/14/18 09:30 02/14/18 09:30 02/14/18 09:30 Intake and Output: 02/14/18 02/14/18 06:59 18:59 Intake Total 1200 300 Output Total 301 Balance 1200 -1 - Medications Medications: Current Medications Amlodipine Besylate (Norvasc) 5 mg PO DAILY [facility] Last Admin: 02/14/18 08:24 Dose: 5 mg Dextrose/Lactated Ringer's (Dextrose 5%/Lactated Ringer's) 1,000 mls @ 100 mls/ hr IV .Q10H [facility] Stop: 02/15/18 08:23 Levetiracetam (Keppra) 500 mg PO BID [facility] Last Admin: 02/13/18 16:52 Dose: 500 mg Pantoprazole Sodium (Protonix Inj) 40 mg IVP BID [facility] Last Admin: 02/13/18 16:52 Dose: 40 mg - Labs Labs: 02/13/18 12:43 02/13/18 04:40 PT 12.4 Seconds (9.8-13.1) 02/13/18 04:40 INR 1.1 (0.9-1.2) 02/13/18 04:40 APTT 33.0 Seconds (25.6-37.1) 02/13/18 04:40 - Head Exam Head Exam: ATRAUMATIC - Eye Exam Eye Exam: Normal appearance - ENT Exam ENT Exam: Mucous Membranes Dry - Respiratory Exam Respiratory Exam: NORMAL BREATHING PATTERN - Cardiovascular Exam Cardiovascular Exam: +S1, +S2 - GI/Abdominal Exam GI & Abdominal Exam: Normal Bowel Sounds Assessment and Plan (1) Anemia Assessment & Plan: anemia of GI blood loss appears resolving; s/p PRBC transfusion anemia of CKD; s/p Procrit no iron deficiency H/H improved Status: Acute (2) Platelet dysfunction due to drugs Assessment & Plan: aspirin, plavix, Pletal on hold Status: Acute
--- NOTE | 2018-02-14 17:54 | CP.PCM.CON ---
History of Present Illness - History of Present Illness History of Present Illness: 77 yr old male who is admitted for GI bleeding, DM, epilepsy, iron deficiency anemia, pmh of stroke, recently discharged for acute CVA on antiplatelet therapy , admitted with GI bleeding. Past medical history: DM, CVA, seizures Past surgical history: None Family history: Denies hematologic and oncologic problems Social history: Former tobacco Allergies: NKA On exam: Normal neurological exam. NO focal deficits noted. Past Patient History - Past Medical History & Family History Past Medical History?: Yes - Past Social History Smoking Status: Former Smoker - CARDIAC Hx Cardiac Disorders: Yes Hx Hypercholesterolemia: Yes Hx Hypertension: Yes - PULMONARY Hx Respiratory Disorders: No - NEUROLOGICAL Hx Neurological Disorder: Yes HX Cerebrovascular Accident: Yes Hx Seizures: Yes - HEENT Hx HEENT Problems: No - RENAL Hx Chronic Kidney Disease: No Other/Comment: arnold - ENDOCRINE/METABOLIC Hx Diabetes Mellitus Type 2: Yes - HEMATOLOGICAL/ONCOLOGICAL Hx AIDS: No Hx Human Immunodeficiency Virus (HIV): No - INTEGUMENTARY Hx Dermatological Problems: No - MUSCULOSKELETAL/RHEUMATOLOGICAL Hx Falls: No - GASTROINTESTINAL Hx Gastrointestinal Disorders: No Hx Hemorrhoids: Yes Other/Comment: gib - GENITOURINARY/GYNECOLOGICAL Hx Genitourinary Disorders: No - PSYCHIATRIC Hx Substance Use: No - SURGICAL HISTORY Hx Surgeries: No - ANESTHESIA Hx Anesthesia: No Hx Anesthesia Reactions: No Hx Malignant Hyperthermia: No Meds Allergies/Adverse Reactions: Allergies Allergy/AdvReac Type Severity Reaction Status Date / Time No Known Allergies Allergy Verified 02/12/18 06:31 - Medications Medications: Current Medications Lactated Ringer's (Lactated Ringer's) 1,000 mls @ 100 mls/hr IV .Q10H [facility] Last Admin: 02/12/18 11:41 Dose: 100 mls/hr Levetiracetam 500 mg/ Sodium (Chloride) 105 mls @ 210 mls/hr IVPB Q12 [facility] Pantoprazole Sodium (Protonix Inj) 40 mg IVP BID [facility] Results - Vital Signs Recent Vital Signs: Last Vital Signs Temp 98.0 F 02/12/18 12:15 Pulse 83 02/12/18 12:15 Resp 19 02/12/18 13:56 BP 165/81 H 02/12/18 12:15 Pulse Ox 99 02/12/18 13:56 - Labs Result Diagrams: 02/13/18 12:43 02/13/18 04:40 Labs: Laboratory Results - last 24 hr 02/12/18 02/12/18 02/12/18 07:54 08:00 08:00 WBC 6.6 RBC 3.40 L Hgb 9.9 L Hct 30.5 L MCV 89.8 D MCH 29.2 MCHC 32.5 L RDW 22.2 H Plt Count 385 MPV 7.8 Neut % (Auto) 61.4 Lymph % (Auto) 26.8 [place] % (Auto) 6.9 Eos % (Auto) 4.1 H Baso % (Auto) 0.8 Neut # (Auto) 4.0 Lymph # (Auto) 1.8 [place] # (Auto) 0.5 Eos # (Auto) 0.3 Baso # (Auto) 0.1 PT INR Sodium 146 Potassium 4.5 Chloride 108 H Carbon Dioxide 23 Anion Gap 20 BUN 18 Creatinine 1.6 H Est GFR ( Amer) 51 Est GFR (Non-Af Amer) 42 POC Glucose (mg/dL) 127 H Random Glucose 133 H Calcium 8.9 Total Bilirubin 0.5 AST 30 ALT 24 Alkaline Phosphatase 93 Total Protein 7.5 Albumin 3.8 Globulin 3.7 Albumin/Globulin Ratio 1.0 Blood Type Antibody Screen BBK History Checked 02/12/18 02/12/18 02/12/18 08:00 08:00 11:50 WBC RBC Hgb Hct MCV MCH MCHC RDW Plt Count MPV Neut % (Auto) Lymph % (Auto) [place] % (Auto) Eos % (Auto) Baso % (Auto) Neut # (Auto) Lymph # (Auto) [place] # (Auto) Eos # (Auto) Baso # (Auto) PT 11.9 INR 1.1 Sodium 143 Potassium 4.4 Chloride 110 H Carbon Dioxide 20 L Anion Gap 17 BUN 19 Creatinine 1.5 Est GFR ( Amer) 55 Est GFR (Non-Af Amer) 45 POC Glucose (mg/dL) Random Glucose 118 H Calcium 8.6 Total Bilirubin AST ALT Alkaline Phosphatase Total Protein Albumin Globulin Albumin/Globulin Ratio Blood Type O POSITIVE Antibody Screen Negative BBK History Checked Patient has bt 02/12/18 11:50 WBC 6.5 RBC 2.98 L Hgb 8.8 L Hct 26.8 L MCV 89.8 MCH 29.4 MCHC 32.8 L RDW 22.5 H Plt Count 355 MPV Neut % (Auto) Lymph % (Auto) [place] % (Auto) Eos % (Auto) Baso % (Auto) Neut # (Auto) Lymph # (Auto) [place] # (Auto) Eos # (Auto) Baso # (Auto) PT INR Sodium Potassium Chloride Carbon Dioxide Anion Gap BUN Creatinine Est GFR ( Amer) Est GFR (Non-Af Amer) POC Glucose (mg/dL) Random Glucose Calcium Total Bilirubin AST ALT Alkaline Phosphatase Total Protein Albumin Globulin Albumin/Globulin Ratio Blood Type Antibody Screen BBK History Checked Assessment & Plan - Assessment and Plan (Free Text) Assessment: 77 yr old male who is normal from a neurologically point of view, and should not be on any antiplatelets at this point. He does not have any signs of watershed infarct at this point. PLan: 1. no antiplatelets PLease reconsult prn if there are any new neurological deficits. Thank you, Dr. hay
--- NOTE | 2018-02-14 19:49 | CP.PCM.PN ---
Subjective - Date & Time of Evaluation Date of Evaluation: 02/14/18 Time of Evaluation: 22:22 - Subjective Subjective: Above noted Objective - Vital Signs/Intake and Output Vital Signs (last 24 hours): Temp Pulse Resp BP Pulse Ox 97.5 F L 83 16 143/80 97 02/14/18 09:30 02/14/18 18:00 02/14/18 18:00 02/14/18 18:00 02/14/18 18:00 Intake and Output: 02/14/18 02/15/18 18:59 06:59 Intake Total 840 Output Total 1001 Balance -161 - Medications Medications: Current Medications Amlodipine Besylate (Norvasc) 5 mg PO DAILY [facility] Last Admin: 02/14/18 08:24 Dose: 5 mg Dextrose/Lactated Ringer's (Dextrose 5%/Lactated Ringer's) 1,000 mls @ 100 mls/ hr IV .Q10H [facility] Stop: 02/15/18 08:23 Last Admin: 02/14/18 14:02 Dose: 100 mls/hr Levetiracetam (Keppra) 500 mg PO BID [facility] Last Admin: 02/14/18 18:32 Dose: 500 mg Metformin HCl (Glucophage) 500 mg PO BIDWM [facility] Pantoprazole Sodium (Protonix Inj) 40 mg IVP BID [facility] Last Admin: 02/14/18 18:32 Dose: 40 mg - Labs Labs: 02/13/18 12:43 02/13/18 04:40 PT 12.4 Seconds (9.8-13.1) 02/13/18 04:40 INR 1.1 (0.9-1.2) 02/13/18 04:40 APTT 33.0 Seconds (25.6-37.1) 02/13/18 04:40 - Respiratory Exam Respiratory Exam: NORMAL BREATHING PATTERN - Cardiovascular Exam Cardiovascular Exam: REGULAR RHYTHM - GI/Abdominal Exam GI & Abdominal Exam: Normal Bowel Sounds Assessment and Plan - Assessment and Plan (Free Text) Assessment: LGI Bleed ? Plat dysfxn 2 to meds IVF DDAVP GI Tx 1 unit Monitor closely Colonoscopy on Saturday R lower ext movements?? 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
--- NOTE | 2018-02-15 06:57 | CP.PCM.PN ---
Subjective - Date & Time of Evaluation Date of Evaluation: 02/15/18 Time of Evaluation: 22:22 - Subjective Subjective: Above noted Objective - Vital Signs/Intake and Output Vital Signs (last 24 hours): Temp Pulse Resp BP Pulse Ox 98.4 F 74 12 144/102 H 99 02/15/18 04:00 02/15/18 06:00 02/15/18 06:00 02/15/18 06:00 02/15/18 06:00 Intake and Output: 02/14/18 02/15/18 18:59 06:59 Intake Total 840 360 Output Total 1001 1100 Balance -161 740 - Medications Medications: Current Medications Amlodipine Besylate (Norvasc) 5 mg PO DAILY [facility] Last Admin: 02/14/18 08:24 Dose: 5 mg Dextrose/Lactated Ringer's (Dextrose 5%/Lactated Ringer's) 1,000 mls @ 100 mls/ hr IV .Q10H [facility] Stop: 02/15/18 08:23 Last Admin: 02/14/18 14:02 Dose: 100 mls/hr Levetiracetam (Keppra) 500 mg PO BID [facility] Last Admin: 02/14/18 18:32 Dose: 500 mg Metformin HCl (Glucophage) 500 mg PO BIDWM [facility] Pantoprazole Sodium (Protonix Inj) 40 mg IVP BID [facility] Last Admin: 02/14/18 18:32 Dose: 40 mg - Labs Labs: 02/13/18 12:43 02/13/18 04:40 PT 12.4 Seconds (9.8-13.1) 02/13/18 04:40 INR 1.1 (0.9-1.2) 02/13/18 04:40 APTT 33.0 Seconds (25.6-37.1) 02/13/18 04:40 - Respiratory Exam Respiratory Exam: NORMAL BREATHING PATTERN - Cardiovascular Exam Cardiovascular Exam: Murmur - GI/Abdominal Exam GI & Abdominal Exam: Normal Bowel Sounds Assessment and Plan - Assessment and Plan (Free Text) Assessment: LGI Bleed ? Plat dysfxn 2 to meds IVF DDAVP GI Tx 1 unit Monitor closely Colonoscopy on Saturday R lower ext movements?? 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
--- NOTE | 2018-02-15 07:24 | CP.CCUPN ---
CCU Subjective - Physician Review Events Since Last Encounter (Free Text): 02/15/18 07:21 Patient awake, no distress, follow commands, no fever, no vomiting, no chest pain, events reviewed CCU Objective - Vital Signs / Intake & Output Vital Signs (Last 4 hours): Vital Signs Temp Pulse Resp BP Pulse Ox 02/15/18 06:00 74 12 144/102 H 99 02/15/18 04:00 98.4 F 69 19 144/84 99 Intake and Output (Last 8hrs): Intake & Output 02/14/18 02/15/18 02/15/18 22:59 06:59 14:59 Intake Total 440 240 Output Total 600 650 Balance -160 -410 Intake: IV 200 Oral 240 240 Output: Urine 600 650 Urine, Voided 600 650 Other: # Voids Urine, Voided 1 - Physical Exam Head: Positive for: Atraumatic, Normocephalic Pupils: Positive for: PERRL Extroacular Muscles: Positive for: EOMI Conjunctiva: Positive for: Normal Mouth: Positive for: Moist Mucous Membranes Nose (External): Positive for: Atraumatic Neck: Positive for: Normal Range of Motion Respiratory/Chest: Positive for: Clear to Auscultation Cardiovascular: Positive for: Regular Rate and Rhythm, Normal S1, S2 Abdomen: Positive for: Normal Bowel Sounds Upper Extremity: Positive for: Normal Inspection Lower Extremity: Positive for: Normal Inspection Skin: Positive for: Warm, Dry Psychiatric: Positive for: Alert, Oriented x 3 - Medications Active Medications: Active Medications Generic Name Dose Route Start Last Admin Trade Name Freq PRN Reason Stop Dose Admin Amlodipine Besylate 5 mg 02/13/18 11:00 02/14/18 08:24 Norvasc PO 5 mg DAILY [facility] Administration Dextrose/Lactated Ringer's 1,000 mls @ 100 mls/hr 02/14/18 08:30 02/14/18 14: 02 Dextrose 5%/Lactated Ringer's IV 02/15/18 08:23 100 mls/hr .Q10H [facility] Administration Levetiracetam 500 mg 02/13/18 11:00 02/14/18 18:32 Keppra PO 500 mg BID [facility] Administration Metformin HCl 500 mg 02/15/18 08:00 Glucophage PO BIDWM [facility] Pantoprazole Sodium 40 mg 02/12/18 21:00 02/14/18 18:32 Protonix Inj IVP 40 mg BID [facility] Administration - Patient Studies Lab Studies: Microbiology Studies 02/12/18 07:48 MRSA Culture (Admit) - Final Naris MRSA NOT DETECTED Lab Studies 02/14/18 02/14/18 02/14/18 Range/Units 21:43 16:42 08:54 POC Glucose (mg/dL) 138 H 176 H 183 H (65-110) mg/dL Laboratory Results - last 24 hr 02/14/18 02/14/18 02/14/18 08:54 16:42 21:43 POC Glucose (mg/dL) 183 H 176 H 138 H Fingerstick Blood Sugar Results: 138 Critical Care Progress Note - Nutrition Nutrition: Nutrition Category Date Time Status Consistent Carbohydrate [DIET] Diets 02/15/18 Breakfast Active Assessment/Plan - Assessment and Plan (Free Text) Assessment: A/P GI bleeding, anemia, platelt dysfunction, h/o CVA, DM, seizer disorder - Follow CBC - GI follow up - Hematology follow up - Continue meds
[2018-02-15 08:26] LABS: BLOOD UREA NITROGEN 11 mg/dl (9-20); GFR AFRICAN-AMERICAN > 60; GFR NON-AFRICAN AMERICAN 54
[2018-02-15 08:30] LABS: HEMOGLOBIN 10.7 g/dL (12.0-18.0); MEAN CELL VOLUME 90.1 fl (80.0-94.0); MEAN CORPUSCULAR HEMOGLOBIN 29.2 pg (27.0-31.0); MEAN CORPUSCULAR HGB CONC 32.4 g/dL (33.0-37.0); RBC 3.67 Mil/uL (4.40-5.90); RED CELL DISTRIBUTION WIDTH 20.3 % (11.5-14.5); WHITE BLOOD COUNT 5.2 K/uL (4.8-10.8)
--- NOTE | 2018-02-15 08:52 | CT ---
PROCEDURE: CT HEAD WITHOUT CONTRAST. HISTORY: confusion COMPARISON: CT head dated 01/21/2018. TECHNIQUE: Axial computed tomography images were obtained through the head/brain without intravenous contrast. Radiation dose: Total exam DLP = 803.1 mGy-cm. This CT exam was performed using one or more of the following dose reduction techniques: Automated exposure control, adjustment of the mA and/or kV according to patient size, and/or use of iterative reconstruction technique. FINDINGS: HEMORRHAGE: No intracranial hemorrhage. BRAIN: No mass effect or edema. Stable appearance of right temporoparietal occipital lobe encephalomalacia. Mild atrophy. Chronic microvascular ischemic changes. VENTRICLES: Unremarkable. No hydrocephalus. CALVARIUM: Unremarkable. PARANASAL SINUSES: Unremarkable as visualized. No significant inflammatory changes. MASTOID AIR CELLS: Unremarkable as visualized. No inflammatory changes. OTHER FINDINGS: None. IMPRESSION: No acute intracranial pathology.
[2018-02-15 10:16] VITALS: PULSE 83
--- NOTE | 2018-02-15 11:59 | CP.PCM.PN ---
Subjective - Date & Time of Evaluation Date of Evaluation: 02/14/18 Time of Evaluation: 11:00 - Subjective Subjective: Patient is doing better. No complaints. no headache, no other issues. on exam: Normal neurological exam. Only findings are diffuse generalized weakness, left side is slightly weaker than right. Gait is not ataxic. Objective - Vital Signs/Intake and Output Vital Signs (last 24 hours): Temp Pulse Resp BP Pulse Ox 97.7 F 83 16 130/75 100 02/15/18 07:58 02/15/18 10:00 02/15/18 10:00 02/15/18 10:00 02/15/18 10:00 Intake and Output: 02/15/18 02/15/18 06:59 18:59 Intake Total 360 400 Output Total 1100 100 Balance -740 300 - Medications Medications: Current Medications Amlodipine Besylate (Norvasc) 5 mg PO DAILY [facility] Last Admin: 02/15/18 08:52 Dose: 5 mg Levetiracetam (Keppra) 500 mg PO BID [facility] Last Admin: 02/15/18 08:52 Dose: 500 mg Metformin HCl (Glucophage) 500 mg PO BIDWM [facility] Last Admin: 02/15/18 08:51 Dose: 500 mg Pantoprazole Sodium (Protonix Inj) 40 mg IVP BID [facility] Last Admin: 02/15/18 08:52 Dose: 40 mg - Labs Labs: 02/15/18 07:15 02/15/18 07:15 PT 12.4 Seconds (9.8-13.1) 02/13/18 04:40 INR 1.1 (0.9-1.2) 02/13/18 04:40 APTT 33.0 Seconds (25.6-37.1) 02/13/18 04:40 Assessment and Plan - Assessment and Plan (Free Text) Assessment: 77 yr old male, s/p massive right mca and procurement buyer territory stroke who is here for gi bleed, admitted to ICU. He is much better from a neurological point of view and is able to converse well with me. He may restart his aspirin when cleared by gi for bleed.
[2018-02-15 13:02] VITALS: TEMP 97.6
[2018-02-15 15:07] VITALS: BP 120/83; RESP 14; O2SAT 100
--- NOTE | 2018-02-15 18:41 | CP.PCM.PN ---
Subjective - Date & Time of Evaluation Date of Evaluation: 02/15/18 Time of Evaluation: 14:00 - Subjective Subjective: No complaints, at bedside Objective - Vital Signs/Intake and Output Vital Signs (last 24 hours): Temp Pulse Resp BP Pulse Ox 97.6 F 83 14 120/83 100 02/15/18 12:00 02/15/18 14:00 02/15/18 14:00 02/15/18 14:00 02/15/18 14:00 Intake and Output: 02/15/18 02/15/18 06:59 18:59 Intake Total 360 720 Output Total 1100 300 Balance -740 420 - Labs Labs: 02/15/18 07:15 02/15/18 07:15 PT 12.4 Seconds (9.8-13.1) 02/13/18 04:40 INR 1.1 (0.9-1.2) 02/13/18 04:40 APTT 33.0 Seconds (25.6-37.1) 02/13/18 04:40 - Head Exam Head Exam: ATRAUMATIC - Eye Exam Eye Exam: Normal appearance - ENT Exam ENT Exam: Mucous Membranes Dry - Respiratory Exam Respiratory Exam: NORMAL BREATHING PATTERN - Cardiovascular Exam Cardiovascular Exam: +S1, +S2 - GI/Abdominal Exam GI & Abdominal Exam: Normal Bowel Sounds Assessment and Plan (1) Anemia Assessment & Plan: anemia of GI blood loss appears resolving; s/p PRBC transfusion anemia of CKD; s/p Procrit no iron deficiency H/H improved Status: Acute (2) Platelet dysfunction due to drugs Assessment & Plan: to restart aspirin as outpatient Status: Acute
== END 2018-02-15 16:27 | disposition home or self-care (01) | DRG 378 ==
LOC: H.ER 06:20 → H.ERHOLD 09:26 → H.TEL 12:10 → H.ICU/CCU 13:41
PROVIDERS: ADMIT Family Medicine Geriatric Medicine; ATTEND Family Medicine Geriatric Medicine
PROC: 30233N1 Transfusion of Nonautologous Red Blood Cells into Peripheral Vein, Percutaneous Approach (ICD-10-PCS; principal; 2018-02-13)
PROC: 0DJD8ZZ Inspection of Lower Intestinal Tract, Via Natural or Artificial Opening Endoscopic (ICD-10-PCS; 2018-02-14)
DX: K92.2 Gastrointestinal hemorrhage, unspecified (principal); N17.9 Acute kidney failure, unspecified; D62 Acute posthemorrhagic anemia; D63.1 Anemia in chronic kidney disease; D69.1 Qualitative platelet defects; E11.21 Type 2 diabetes mellitus with diabetic nephropathy; E11.22 Type 2 diabetes mellitus with diabetic chronic kidney disease; E11.649 Type 2 diabetes mellitus with hypoglycemia without coma; E78.00 Pure hypercholesterolemia, unspecified; E78.5 Hyperlipidemia, unspecified; G40.909 Epilepsy, unspecified, not intractable, without status epilepticus; I12.9 Hypertensive chronic kidney disease with stage 1 through stage 4 chronic kidney disease, or unspecified chronic kidney disease; N18.9 Chronic kidney disease, unspecified; Z79.02 Long term (current) use of antithrombotics/antiplatelets; Z79.82 Long term (current) use of aspirin; Z79.84 Long term (current) use of oral hypoglycemic drugs; Z86.73 Personal history of transient ischemic attack (TIA), and cerebral infarction without residual deficits; Z87.891 Personal history of nicotine dependence; K64.9 Unspecified hemorrhoids; Z53.8 Procedure and treatment not carried out for other reasons

== ENCOUNTER 2018-03-03 07:33 | Day surgery (SDC) | payer MEDICARE ==
[2018-03-03] MEDS ORDERED: Lactated Ringer's 500 ML IV ONE (08:36)
[2018-03-03] MEDS ORDERED: Propofol 10 mg/ml Inj (20 ML) ONE (10:30)
[2018-03-03 11:26] VITALS: BP 148/68; PULSE 62; RESP 15; TEMP 96.4; O2SAT 96
== END 2018-03-03 12:21 | disposition home or self-care (01) ==
LOC: H.ENDO 07:33
PROVIDERS: ATTEND Internal Medicine Gastroenterology
DX: K64.8 Other hemorrhoids (principal); K92.1 Melena; Z86.73 Personal history of transient ischemic attack (TIA), and cerebral infarction without residual deficits; E11.9 Type 2 diabetes mellitus without complications; I10 Essential (primary) hypertension; G40.909 Epilepsy, unspecified, not intractable, without status epilepticus
CPT/HCPCS: 45378; 82948; J2001; J2704; J7120

== ENCOUNTER 2018-06-02 18:20 | Inpatient (IN) | payer MEDICARE ==
[2018-06-02 18:20] VITALS: BMI 25.1
[2018-06-02] MEDS ORDERED: Sodium Chloride 0.9% 500 ML IV STA (18:53)
[2018-06-02 19:16] LABS: BASO # 0.1 K/uL (0.0-0.2); EOS # 0.3 K/uL (0.0-0.7); EOS % 2.9 % (0.0-4.0); LYMPH # 1.5 K/uL (1.0-4.3); LYMPH % 15.3 % (20.0-40.0); MEAN CELL VOLUME 91.4 fl (80.0-94.0); MEAN CORPUSCULAR HGB CONC 32.8 g/dL (33.0-37.0); MEAN PLATELET VOLUME 7.7 fl (7.2-11.7); MONO # 0.6 K/uL (0.0-0.8); MONO % 6.2 % (0.0-10.0); NEUT # 7.3 K/uL (1.8-7.0); NEUT % 74.6 % (50.0-75.0); NRBC % 0.1 % (0.0-0.0); RBC 2.99 Mil/uL (4.40-5.90); RED CELL DISTRIBUTION WIDTH 15.9 % (11.5-14.5); WHITE BLOOD COUNT 9.8 K/uL (4.8-10.8)
[2018-06-02 19:18] LABS: VENOUS BLOOD GAS BASE EXCESS -1.8 mmol/L (0.0-2.0); VENOUS BLOOD GAS PCO2 42 mmHg (40-60); VENOUS BLOOD GAS PO2 23 mm/Hg (30-55); VENOUS BLOOD PH 7.36 (7.32-7.43)
[2018-06-02 19:19] LABS: INR 1.1; PROTHROMBIN TIME 12.6 Seconds (9.8-13.1)
[2018-06-02 19:22] LABS: PARTIAL THROMBOPLASTIN TIME 37.5 Seconds (25.6-37.1)
[2018-06-02 19:30] LABS: ALB/GLOB RATIO 1.1 (1.0-2.1); ALBUMIN 3.8 g/dL (3.5-5.0); CALCIUM 9.3 mg/dL (8.4-10.2)
--- NOTE | 2018-06-02 20:08 | ED PDOC ---
HPI:Nausea, Vomiting, Diarrhea Time Seen by Provider: 06/02/18 18:33 Chief Complaint (Nursing): GI Problem Chief Complaint (Provider): GI Problem History Per: Family () History/Exam Limitations: clinical condition Current Symptoms Are (Timing): Still Present Additional Complaint(s): 77 year old male arrives to ED with for an evaluation of nonbloody vomiting associated with abdomen distention, decreased appetite and constipation since yesterday. Patient was given Miralax which provided some relief. Today, patient had dark, sometimes red, stools that prompted ED visit. further reports patient fell twice at home on 05/31/18 with unknown head injury and increasing right lower leg weakness. Of note, patient is currently on Plavix and recently diagnosed with oral thrush. PMD: Dr. Eduardo Moreno Past Medical History Reviewed: Historical Data, Nursing Documentation, Vital Signs Vital Signs: Last Vital Signs Temp 98.1 F 06/02/18 18:28 Pulse 91 H 06/02/18 18:28 Resp 18 06/02/18 18:28 BP 109/69 06/02/18 18:28 Pulse Ox 96 06/02/18 18:28 - Medical History PMH: Anemia, CVA (2009, January 2018), Diabetes, HTN, Hypercholesterolemia, Seizures Denies: HIV, Chronic Kidney Disease - Family History Family History: States: Unknown Family Hx - Home Medications Home Medications: Ambulatory Orders Medication Instructions Recorded Carvedilol [Coreg] 12.5 mg PO BID 01/27/17 levETIRAcetam [Keppra] 500 mg PO BID 01/27/17 Pantoprazole [Protonix EC Tab] 40 mg PO DAILY ect 02/05/18 metFORMIN [glucOPHAGE] 500 mg PO TID tab 02/15/18 Oxybutynin Chloride [Oxybutynin 30 mg PO DAILY 06/02/18 Chloride ER] Simvastatin [Zocor] 20 mg PO HS 06/02/18 Tamsulosin [Flomax] 0.8 mg PO DAILY 06/02/18 Bisacodyl [Dulcolax] 10 mg VT BID #10 sup 06/06/18 Nystatin [Nystatin Oral Susp] 5 ml PO QID #30 udc 06/06/18 Polyethylene Glycol 3350 [Miralax] 17 gm PO DAILY #30 packet 06/06/18 - Allergies Allergies/Adverse Reactions: Allergies Allergy/AdvReac Type Severity Reaction Status Date / Time No Known Allergies Allergy Verified 06/02/18 18:28 Review of Systems ROS Statement: Except As Marked, All Systems Reviewed And Found Negative Gastrointestinal: Positive for: Vomiting (NB), Constipation (mild), Other ( abdominal distention; decreased appetite) Neurological: Positive for: Weakness (right LE) Physical Exam - Reviewed Nursing Documentation Reviewed: Yes Vital Signs Reviewed: Yes - Physical Exam Appears: Positive for: No Acute Distress (cachectic appearance) Head Exam: Positive for: ATRAUMATIC, NORMOCEPHALIC Skin: Positive for: Warm, Pallor Eye Exam: Positive for: EOMI, PERRL, Conjunctival injection (pallor bilaterally) ENT: Positive for: Other (dry mucous membranes with white plaque to soft palette and back of tongue) Neck: Positive for: Painless ROM, Supple Cardiovascular/Chest: Positive for: Tachycardia (with regular rhythm) Respiratory: Positive for: Normal Breath Sounds. Negative for: Respiratory Distress Gastrointestinal/Abdominal: Positive for: Soft, Distended (slightly tympanic), Hernia (reducible on umbilical region with tenderness). Negative for: Tenderness, Mass, Guarding, Rebound Back: Positive for: Normal Inspection. Negative for: Decreased ROM Rectal: Negative for: Other (gross blood, rectal impaction) Extremity: Positive for: Pedal Edema (pitting bilaterally), Other (poor muscle strength) Lymphatic: Negative for: Adenopathy Neurologic/Psych: Positive for: Alert, Motor/Sensory Deficits (mild right hemiparesis) - Laboratory Results Result Diagrams: 06/06/18 05:40 06/06/18 05:40 - ECG O2 Sat by Pulse Oximetry: 96 (RA) Pulse Ox Interpretation: Normal Medical Decision Making Medical Decision Making: Initial Impression: GI bleed; dehydration Initial Plan: * Type and screen * VBG * EKG * CMP * Lipase * Magnesium * Phosphorous * CBC * PTT * PT * CXR * NS 500ml IV per 500mls/hr * Protonix 40mg IVP * Zofran 8mg IV * Blood culture * Urine culture * Accucheck * Occult blood, stool * UA Time: 185 --Rectal exam performed with Sultana Kahlil as behavioral medical director. Time: 2215 --CT head FINDINGS: Brain: Extensive encephalomalacia and gliosis throughout the right cerebral hemisphere. Diffuse cerebral volume loss and chronic microvascular white matter changes. These chronic changes unchanged. Ventricles: Unremarkable. Bones/joints: Unremarkable. No acute fracture. Soft tissues: Unremarkable. Sinuses: Unremarkable as visualized. Mastoid air cells: Unremarkable as visualized. IMPRESSION: Chronic changes as above. No acute intracranial pathology or traumatic injury. Time: 2227 --CT ABD/pelvis FINDINGS: Lung bases: Unremarkable. No mass. No consolidation. ABDOMEN: Liver: Unremarkable. Gallbladder and bile ducts: Unremarkable. Pancreas: Unremarkable. No ductal dilation. Spleen: Unremarkable. Adrenals: Unremarkable. Kidneys and ureters: There is severe bladder distention with the dome of the bladder extending to the upper abdomen. Bilateral mild to moderate hydroureteronephrosis, in keeping with bilateral obstructive uropathy. Findings most compatible with bladder outlet obstruction. Stomach and bowel: Moderate rectal fecal impaction. A large volume of fecal material throughout the colon. Diffuse moderate colonic ileus. There is a very redundant sigmoid colon that extends all the way up to the right subdiaphragmatic/subphrenic space of the right upper quadrant. As it traverses the midline abdomen, and demonstrates complete collapse with possible volvulus. Therefore, sigmoid volvulus is difficult to exclude on imaging alone and may be considered clinically. Correlation with colonoscopy recommended. PELVIS: Appendix: No appendiceal abnormality. Bladder: Unremarkable. Reproductive: Unremarkable as visualized. ABDOMEN and PELVIS: Intraperitoneal space: Unremarkable. No free air. No significant fluid collection. Bones/joints: No acute fracture. No dislocation. Soft tissues: Unremarkable. Vasculature: Unremarkable. No abdominal aortic aneurysm. Lymph nodes: Unremarkable. IMPRESSION: 1. There is severe bladder distention with the dome of the bladder extending to the upper abdomen. Bilateral mild to moderate hydroureteronephrosis, in keeping with bilateral obstructive uropathy. Findings most compatible with severe bladder outlet obstruction. Emergent Lennon catheter placement recommended if also clinically indicated. 2. Moderate rectal fecal impaction. Very large volume of fecal material throughout the colon. Diffuse moderate colonic ileus. 3. There is a very redundant sigmoid colon that extends all the way up to the right subdiaphragmatic/subphrenic space of the right upper quadrant. As it traverses the midline abdomen, it demonstrates complete collapse with signs and may suggest sigmoid colonic volvulus. Since sigmoid volvulus is difficult to exclude on this imaging study, it should be considered considered clinically as one of the primary differential diagnoses in this patient who presents with GI bleed. Correlation with colonoscopy recommended. Lennon catheter placed by RN with large amount or urine drained. MAKENNA Moreno who requests Dr Villegas for GI and Dr Stacy for Urology. Admitted to Dr Moreno for urinary retention and volvululs Scribe Attestation: Documented by Jadyn Edwards, acting as a scribe for Michelle Renteria MD. Provider Scribe Attestation: All medical record entries made by the Scribe were at my direction and personally dictated by me. I have reviewed the chart and agree that the record accurately reflects my personal performance of the history, physical exam, medical decision making, and the department course for this patient. I have also personally directed, reviewed, and agree with the discharge instructions and disposition. Disposition - Clinical Impression Clinical Impression: Urinary retention, Volvulus, Constipation - Patient ED Disposition Is Patient to be Admitted: Yes Counseled Patient/Family Regarding: Studies Performed, Diagnosis - Disposition Disposition Time: 23:00 Condition: GUARDED - Pt Status Changed To: Hospital Disposition Of: Inpatient - Admit Certification Admit to Inpatient:: After my assessment, the patient will require hospitalization for at least two midnights. This is because of the severity of symptoms shown, intensity of services needed, and/or the medical risk in this patient being treated as an outpatient. - POA Present On Arrival: Falls Or Trauma (risk)
[2018-06-02 22:32] LABS: URINE BACTERIA RARE (<OCC); URINE BILIRUBIN NEGATIVE (NEGATIVE); URINE BLOOD NEGATIVE (NEGATIVE); URINE CLARITY SLIGHTY-CLOUDY (Clear); URINE COLOR YELLOW (YELLOW); URINE GLUCOSE (UA) NEG (Normal); URINE HYALINE CAST 0-2 /hpf (0-2); URINE LEUKOCYTE ESTERASE NEG Leu/uL (Negative); URINE PROTEIN 100 mg/dL (NEGATIVE); URINE UROBILINOGEN 0.2-1.0 mg/dL (0.2-1.0)
[2018-06-03] MEDS: Sodium Chloride 0.45% 1,000 ML IV SCH ×2 (00:30→23:50)
--- NOTE | 2018-06-03 06:26 | CP.PCM.CON ---
History of Present Illness - History of Present Illness History of Present Illness: General Surgery - Dr. Dobson 77yo m w/ hx of HTN, DM, CVA, Seizure disorder, presenting with 2 days of progressively worsening abdominal pain and distension. Pt states he noticed some lower abdominal discomfort about 2 days ago described as suprapubic location, non-radiating, this pain became progressively worse with associated abdominal distension and he decided to come to the ED. Pt also states he noticed a small amount of blood in his stool and was concerned about this. He denies any nausea/vomiting/fevers/chills/sob/chest pain/dysuria though pt states he does not recall when the last time he urinated was, and also does not recall the last BM. PMH: HTN, DM, CVA, Seizures PSH: colonoscopy 02/2018 showed hemorrhoids, non-bleeding Meds as per chart NKDA Pt was seen in the Ed. Vitals stable and wnl. He went for CT abdomen/pelvis which showed a massively distended bladder, fecal impaction, and redundant sigmoid colon with inability to r/o volvulus. Surgery was consulted for volvulus Review of Systems - Review of Systems All systems: reviewed and no additional remarkable complaints except (as per HPI ) Past Patient History - Past Medical History & Family History Past Medical History?: Yes - Past Social History Smoking Status: Never Smoked - CARDIAC Hx Hypercholesterolemia: Yes Hx Hypertension: Yes - PULMONARY Hx Respiratory Disorders: No - NEUROLOGICAL Hx Seizures: Yes - HEENT Hx HEENT Problems: No - RENAL Hx Chronic Kidney Disease: No - ENDOCRINE/METABOLIC Hx Endocrine Disorders: Yes Hx Diabetes Mellitus Type 2: Yes - HEMATOLOGICAL/ONCOLOGICAL Hx Anemia: Yes Hx Human Immunodeficiency Virus (HIV): No - INTEGUMENTARY Hx Dermatological Problems: No - MUSCULOSKELETAL/RHEUMATOLOGICAL Hx Musculoskeletal Disorders: Yes Hx Unsteady Gait: Yes - GASTROINTESTINAL Hx Gastrointestinal Disorders: No - GENITOURINARY/GYNECOLOGICAL Hx Genitourinary Disorders: No - PSYCHIATRIC Hx Psychophysiologic Disorder: No Hx Emotional Abuse: No Hx Physical Abuse: No Hx Substance Use: No - SURGICAL HISTORY Hx Surgeries: Yes - ANESTHESIA Hx Anesthesia: Yes Hx Anesthesia Reactions: No Hx Malignant Hyperthermia: No Meds Allergies/Adverse Reactions: Allergies Allergy/AdvReac Type Severity Reaction Status Date / Time No Known Allergies Allergy Verified 06/02/18 18:28 - Medications Medications: Current Medications Atorvastatin Calcium (Lipitor) 10 mg PO HS [facility] Carvedilol (Coreg) 12.5 mg PO BID [facility] Docusate Sodium (Colace) 100 mg PO BID [facility] Home Med (Oxybutynin Chloride [Oxybutynin Chloride Er]) 30 mg PO DAILY [facility] Sodium Chloride (Sodium Chloride 0.45%) 1,000 mls @ 40 mls/hr IV .Q24H GURJIT Stop: 06/04/18 23:46 Last Admin: 06/03/18 00:30 Dose: 40 mls/hr Levetiracetam (Keppra) 500 mg PO BID [facility] Metformin HCl (Glucophage) 500 mg PO TID [facility] Pantoprazole Sodium (Protonix Ec Tab) 40 mg PO DAILY [facility] Tamsulosin HCl (Flomax) 0.8 mg PO DAILY [facility] Physical Exam - Constitutional Appears: No Acute Distress - Head Exam Head Exam: ATRAUMATIC, NORMAL INSPECTION, NORMOCEPHALIC - Eye Exam Eye Exam: Normal appearance - ENT Exam ENT Exam: Mucous Membranes Dry - Respiratory Exam Respiratory Exam: NORMAL BREATHING PATTERN. absent: Respiratory Distress - Cardiovascular Exam Cardiovascular Exam: REGULAR RHYTHM - GI/Abdominal Exam GI & Abdominal Exam: Hernia (Umbilical hernia, not incarcerated or strangulated) , Soft. absent: Distended, Firm, Guarding, Rebound, Rigid, Tenderness - Neurological Exam Neurological exam: Alert, Oriented x3 - Psychiatric Exam Psychiatric exam: Normal Affect, Normal Mood - Skin Skin Exam: Dry, Intact Results - Vital Signs Recent Vital Signs: Last Vital Signs Temp 98.5 F 06/03/18 06:07 Pulse 72 06/03/18 06:07 Resp 16 06/03/18 06:07 BP 120/61 06/03/18 06:07 Pulse Ox 98 06/03/18 00:36 - Labs Result Diagrams: 06/02/18 19:07 06/02/18 19:07 Labs: Laboratory Results - last 24 hr 06/02/18 06/02/18 06/02/18 19:05 19:07 19:07 WBC 9.8 D RBC 2.99 L Hgb 9.0 L Hct 27.3 L MCV 91.4 MCH 30.0 MCHC 32.8 L RDW 15.9 H Plt Count 276 MPV 7.7 Neut % (Auto) 74.6 Lymph % (Auto) 15.3 L Hand % (Auto) 6.2 Eos % (Auto) 2.9 Baso % (Auto) 1.0 Neut # (Auto) 7.3 H Lymph # (Auto) 1.5 Hand # (Auto) 0.6 Eos # (Auto) 0.3 Baso # (Auto) 0.1 PT INR APTT pO2 VBG pH VBG pCO2 VBG HCO3 VBG Total CO2 VBG O2 Sat (Calc) VBG Base Excess VBG Potassium Glucose Lactate FiO2 Sodium 140 Potassium 4.4 Chloride 107 Carbon Dioxide 22 Anion Gap 15 BUN 35 H Creatinine 1.6 H Est GFR ( Amer) 51 Est GFR (Non-Af Amer) 42 Random Glucose 161 H Calcium 9.3 Phosphorus 3.6 Magnesium 1.9 Total Bilirubin 0.4 AST 15 L D ALT 21 Alkaline Phosphatase 101 Total Protein 7.3 Albumin 3.8 Globulin 3.5 Albumin/Globulin Ratio 1.1 Lipase 14 L Venous Blood Potassium Urine Color Urine Clarity Urine pH Ur Specific [place] Urine Protein Urine Glucose (UA) Urine Ketones Urine Blood Urine Nitrate Urine Bilirubin Urine Urobilinogen Ur Leukocyte Esterase Urine RBC (Auto) Urine Microscopic WBC Urine Bacteria Hyaline Casts Stool Occult Blood Blood Type O POSITIVE Antibody Screen Negative BBK History Checked Patient has bt 06/02/18 06/02/18 06/02/18 19:07 19:09 19:37 WBC RBC Hgb Hct MCV MCH MCHC RDW Plt Count MPV Neut % (Auto) Lymph % (Auto) Hand % (Auto) Eos % (Auto) Baso % (Auto) Neut # (Auto) Lymph # (Auto) Hand # (Auto) Eos # (Auto) Baso # (Auto) PT 12.6 INR 1.1 APTT 37.5 H pO2 23 L VBG pH 7.36 VBG pCO2 42 VBG HCO3 21.9 VBG Total CO2 25.0 VBG O2 Sat (Calc) 33.9 L VBG Base Excess -1.8 L VBG Potassium 4.3 Glucose 176 H Lactate 1.8 FiO2 21.0 Sodium 140.0 Potassium Chloride 109.0 H Carbon Dioxide Anion Gap BUN Creatinine Est GFR ( Amer) Est GFR (Non-Af Amer) Random Glucose Calcium Phosphorus Magnesium Total Bilirubin AST ALT Alkaline Phosphatase Total Protein Albumin Globulin Albumin/Globulin Ratio Lipase Venous Blood Potassium 4.3 Urine Color Yellow Urine Clarity Slighty-cloudy Urine pH 7.0 Ur Specific [place] 1.015 Urine Protein 100 Urine Glucose (UA) Neg Urine Ketones Trace Urine Blood Negative Urine Nitrate Negative Urine Bilirubin Negative Urine Urobilinogen 0.2-1.0 Ur Leukocyte Esterase Neg Urine RBC (Auto) 1 Urine Microscopic WBC 2 Urine Bacteria Rare Hyaline Casts 0-2 Stool Occult Blood Positive H Blood Type Antibody Screen BBK History Checked - Imaging and Cardiology CT scan - abdomen Status: Image reviewed by me, Report reviewed by me Assessment & Plan - Assessment and Plan (Free Text) Assessment: 77yo M w/ massively distended bladder, s/p bronson catheter insertion, CT with inability to r/o sigmoid volvulus -No signs or symptoms of volvulus -Rectal bleeding most likely related to hemorrhoids -Dulcolax suppository -Continue stool softeners -Reccommend Urology Consultation -No surgical intervention needed Rodriguez Dooley PGY4
[2018-06-03 07:00] LABS: HEMOGLOBIN 7.9 g/dL (12.0-18.0); MEAN CELL VOLUME 93.8 fl (80.0-94.0); MEAN CORPUSCULAR HEMOGLOBIN 30.5 pg (27.0-31.0); MEAN CORPUSCULAR HGB CONC 32.5 g/dL (33.0-37.0); RBC 2.59 Mil/uL (4.40-5.90); RED CELL DISTRIBUTION WIDTH 16.1 % (11.5-14.5); WHITE BLOOD COUNT 7.6 K/uL (4.8-10.8)
--- NOTE | 2018-06-03 07:14 | CARD ---
APPROVED REPORT Date of service: 06/02/2018 <Conclusion> Normal sinus rhythm Minimal voltage criteria for LVH, may be normal variant Borderline ECG
[2018-06-03 07:23] LABS: CALCIUM 8.6 mg/dL (8.4-10.2)
[2018-06-03] MEDS ORDERED: Pantoprazole 40 mg EC Tab PO SCH (09:00)
[2018-06-03] MEDS ORDERED: Chlorhexidine Gluconate 1 APPL/PKT TP ONE (10:24)
--- NOTE | 2018-06-03 10:25 | RAD ---
Date of service: 06/02/2018 HISTORY: vomiting and abdominal distension COMPARISON: 01/21/2018. FINDINGS: LUNGS: The lungs are clear. PLEURA: No significant pleural effusion identified, no pneumothorax apparent. CARDIOVASCULAR: Normal. OSSEOUS STRUCTURES: No significant abnormalities. VISUALIZED UPPER ABDOMEN: Normal. OTHER FINDINGS: None. IMPRESSION: No active pulmonary disease.
--- NOTE | 2018-06-03 10:55 | CT ---
Date of service: 06/02/2018 PROCEDURE: CT HEAD WITHOUT CONTRAST. HISTORY: fall weakness COMPARISON: 02/14/2018. TECHNIQUE: Axial computed tomography images were obtained through the head/brain without intravenous contrast. Coronal and sagittal reconstructed images. Radiation dose: Total exam DLP = 771.46 mGy-cm. This CT exam was performed using one or more of the following dose reduction techniques: Automated exposure control, adjustment of the mA and/or kV according to patient size, and/or use of iterative reconstruction technique. FINDINGS: HEMORRHAGE: No intracranial hemorrhage. BRAIN: No mass effect or edema. Stable encephalomalacia changes right hemisphere. VENTRICLES: Unremarkable. No hydrocephalus. CALVARIUM: Unremarkable. PARANASAL SINUSES: Unremarkable as visualized. No significant inflammatory changes. MASTOID AIR CELLS: Unremarkable as visualized. No inflammatory changes. OTHER FINDINGS: None. IMPRESSION: No acute intracranial abnormalities. No significant findings to account for the clinical presentation. No significant interval change compared to the prior examination(s). Concordant results (preliminary interpretation) provided by [facility]. Procedure Completed: 21:33 Preliminary ([facility]) Report: Dictated and Authenticated: 22:15. Final Interpretation: 10:53. June 03, 2018.
--- NOTE | 2018-06-03 11:17 | CT ---
Date of service: 06/02/2018 PROCEDURE: CT Abdomen and Pelvis without intravenous contrast HISTORY: Abdominal distention and GI bleeding COMPARISON: None. TECHNIQUE: CT scan of the abdomen and pelvis was performed without administration of intravenous contrast. Oral contrast was not administered. Coronal and sagittal reformatted images were obtained. . Radiation dose: Total exam DLP = 767.03 mGy-cm. This CT exam was performed using one or more of the following dose reduction techniques: Automated exposure control, adjustment of the mA and/or kV according to patient size, and/or use of iterative reconstruction technique. FINDINGS: LOWER THORAX: There is subsegmental atelectasis in the lower lobes. . LIVER: Normal in size. No intrahepatic ductal dilatation. GALLBLADDER AND BILE DUCTS: No calcified gallstones. No biliary dilatation PANCREAS: Normal in size. No ductal dilatation. SPLEEN: Normal in size. ADRENALS: Normal in size. No discrete nodule. KIDNEYS AND URETERS: Normal in size without nephrolithiasis. Mild fullness in both collecting system and mild dilatation of the ureters is likely related to an over distended urinary bladder. VASCULATURE: No aortic aneurysm. BOWEL: The small bowel loops are normal in caliber. There is a large amount of stool in the colon with fecal impaction in the rectum. No bowel dilatation or obstruction. The sigmoid colon is redundant and extends to the right upper quadrant pain the proximal sigmoid colon is decompressed. APPENDIX: Normal appendix. PERITONEUM: No free fluid. No free air. LYMPH NODES: No enlarged lymph nodes. BLADDER: Markedly over distended urinary bladder extends to the upper abdomen and is otherwise normal in appearance. REPRODUCTIVE: The the prostate gland is normal in size BONES: No acute fracture. Within normal limits for the patient's age. OTHER FINDINGS: Bilateral small fat containing inguinal hernias, larger on the left There is a small sliding hiatal hernia. IMPRESSION: Severe constipation with fecal impaction in the rectum. Sigmoid colon is redundant and extends to the right upper quadrant. The proximal sigmoid colon is redundant. Sigmoid volvulus cannot be entirely excluded. Clinical follow-up is advised. No bowel obstruction. Markedly over distended urinary bladder extends to the upper abdomen, otherwise normal in appearance. Emergent decompression is recommended. A preliminary report was provided by [employer] [facility] [employer].
[2018-06-03 11:58] LABS: IRON 21 ug/dL (49-181)
[2018-06-03 12:07] LABS: % IRON SATURATION 8 % (20-55); TOTAL IRON BINDING CAPACITY 253 ug/dL (250-450)
--- NOTE | 2018-06-03 15:12 | CP.PCM.CON ---
History of Present Illness - History of Present Illness History of Present Illness: GI Fellow PGY4, Consult note. Consulted for GI bleed. 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 Patient was in stable state of health until yesterday when he developed loose, maroon colored stool. He also had an episode of non-bloody emesis. He has been taking Plavix for secondary CVA prophylaxis. He has not been taking NSAIDs. He has been taking Protonix 40mg daily. He has history of GI bleed 4-5 months ago. Colonoscopy was attempted, but prep was very poor. Hemorrhoids were observed. He recently had barium swallow evaluation which did not show significant aspiration or anatomical pathology. PMHx: CVA - Ataxia, dysphagia, neurogenic bladder. DM, HTN and seizures. PSHx: Colonoscopy, aborted 03/14. SocHx: Lives with . Previous smoker. 12pt ROS completed and negative except for above. Past Patient History - Past Medical History & Family History Past Medical History?: Yes - Past Social History Smoking Status: Never Smoked - CARDIAC Hx Hypercholesterolemia: Yes Hx Hypertension: Yes - PULMONARY Hx Respiratory Disorders: No - NEUROLOGICAL HX Cerebrovascular Accident: Yes Hx Seizures: Yes - HEENT Hx HEENT Problems: No - RENAL Hx Chronic Kidney Disease: No - ENDOCRINE/METABOLIC Hx Endocrine Disorders: Yes Hx Diabetes Mellitus Type 2: Yes - HEMATOLOGICAL/ONCOLOGICAL Hx Anemia: Yes Hx Human Immunodeficiency Virus (HIV): No - INTEGUMENTARY Hx Dermatological Problems: No - MUSCULOSKELETAL/RHEUMATOLOGICAL Hx Musculoskeletal Disorders: Yes Hx Falls: Yes Hx Unsteady Gait: Yes - GASTROINTESTINAL Hx Gastrointestinal Disorders: No - GENITOURINARY/GYNECOLOGICAL Hx Genitourinary Disorders: No Hx Prostate Problems: Yes - PSYCHIATRIC Hx Psychophysiologic Disorder: No Hx Emotional Abuse: No Hx Physical Abuse: No Hx Substance Use: No - SURGICAL HISTORY Hx Surgeries: Yes - ANESTHESIA Hx Anesthesia: Yes Hx Anesthesia Reactions: No Hx Malignant Hyperthermia: No Meds Allergies/Adverse Reactions: Allergies Allergy/AdvReac Type Severity Reaction Status Date / Time No Known Allergies Allergy Verified 06/02/18 18:28 - Medications Medications: Current Medications Atorvastatin Calcium (Lipitor) 10 mg PO [facility] Carvedilol (Coreg) 12.5 mg PO BID [facility] Last Admin: 06/03/18 11:04 Dose: 12.5 mg Docusate Sodium (Colace) 100 mg PO BID [facility] Last Admin: 06/03/18 10:45 Dose: 100 mg Sodium Chloride (Sodium Chloride 0.45%) 1,000 mls @ 40 mls/hr IV .Q24H [facility] Stop: 06/04/18 23:46 Last Admin: 06/03/18 00:30 Dose: 40 mls/hr Levetiracetam (Keppra) 500 mg PO BID [facility] Last Admin: 06/03/18 11:03 Dose: 500 mg Metformin HCl (Glucophage) 500 mg PO TID [facility] Last Admin: 06/03/18 13:26 Dose: Not Given Oxybutynin Chloride (Ditropan Tab) 5 mg PO QID [facility] Last Admin: 06/03/18 10:45 Dose: 5 mg Pantoprazole Sodium (Protonix Ec Tab) 40 mg PO DAILY [facility] Last Admin: 06/03/18 10:45 Dose: 40 mg Polyethylene Glycol (Miralax) 17 gm PO DAILY [facility] Tamsulosin HCl (Flomax) 0.8 mg PO DAILY [facility] Last Admin: 06/03/18 11:03 Dose: 0.8 mg Physical Exam - Constitutional Appears: No Acute Distress, Chronically Ill - Head Exam Head Exam: ATRAUMATIC - Eye Exam Eye Exam: Normal appearance - ENT Exam ENT Exam: Mucous Membranes Moist - Respiratory Exam Respiratory Exam: Clear to Auscultation Bilateral, NORMAL BREATHING PATTERN. absent: Wheezes - Cardiovascular Exam Cardiovascular Exam: REGULAR RHYTHM, +S1, +S2 - GI/Abdominal Exam GI & Abdominal Exam: Normal Bowel Sounds, Soft. absent: Tenderness Additional comments: Umbilical hernia, reducible, non painful. - Rectal Exam Rectal Exam: Black Stool, Hemorrhoids. absent: Fecal Impaction - Extremities Exam Extremities exam: Positive for: normal inspection - Back Exam Back exam: NORMAL INSPECTION - Neurological Exam Neurological exam: Alert, Oriented x3 - Psychiatric Exam Psychiatric exam: Normal Affect, Normal Mood - Skin Skin Exam: Dry, Normal Color Results - Vital Signs Recent Vital Signs: Last Vital Signs Temp 98 F 06/03/18 12:19 Pulse 64 06/03/18 12:19 Resp 18 06/03/18 12:19 BP 142/70 06/03/18 12:19 Pulse Ox 96 06/03/18 12:19 - Labs Result Diagrams: 06/03/18 06:40 06/03/18 06:40 Labs: Laboratory Results - last 24 hr 06/02/18 06/02/18 06/02/18 19:05 19:07 19:07 WBC 9.8 D RBC 2.99 L Hgb 9.0 L Hct 27.3 L MCV 91.4 MCH 30.0 MCHC 32.8 L RDW 15.9 H Plt Count 276 MPV 7.7 Neut % (Auto) 74.6 Lymph % (Auto) 15.3 L [place] % (Auto) 6.2 Eos % (Auto) 2.9 Baso % (Auto) 1.0 Neut # (Auto) 7.3 H Lymph # (Auto) 1.5 Frontier # (Auto) 0.6 Eos # (Auto) 0.3 Baso # (Auto) 0.1 PT INR APTT pO2 VBG pH VBG pCO2 VBG HCO3 VBG Total CO2 VBG O2 Sat (Calc) VBG Base Excess VBG Potassium Glucose Lactate FiO2 Sodium 140 Potassium 4.4 Chloride 107 Carbon Dioxide 22 Anion Gap 15 BUN 35 H Creatinine 1.6 H Est GFR ( Amer) 51 Est GFR (Non-Af Amer) 42 POC Glucose (mg/dL) Random Glucose 161 H Calcium 9.3 Phosphorus 3.6 Magnesium 1.9 Iron TIBC % Saturation Ferritin Total Bilirubin 0.4 AST 15 L D ALT 21 Alkaline Phosphatase 101 Total Protein 7.3 Albumin 3.8 Globulin 3.5 Albumin/Globulin Ratio 1.1 Lipase 14 L Vitamin B12 TSH 3rd Generation Venous Blood Potassium Urine Color Urine Clarity Urine pH Ur Specific [place] Urine Protein Urine Glucose (UA) Urine Ketones Urine Blood Urine Nitrate Urine Bilirubin Urine Urobilinogen Ur Leukocyte Esterase Urine RBC (Auto) Urine Microscopic WBC Urine Bacteria Hyaline Casts Stool Occult Blood Blood Type O POSITIVE Antibody Screen Negative BBK History Checked Patient has bt 06/02/18 06/02/18 06/02/18 19:07 19:09 19:37 WBC RBC Hgb Hct MCV MCH MCHC RDW Plt Count MPV Neut % (Auto) Lymph % (Auto) Frontier % (Auto) Eos % (Auto) Baso % (Auto) Neut # (Auto) Lymph # (Auto) Frontier # (Auto) Eos # (Auto) Baso # (Auto) PT 12.6 INR 1.1 APTT 37.5 H pO2 23 L VBG pH 7.36 VBG pCO2 42 VBG HCO3 21.9 VBG Total CO2 25.0 VBG O2 Sat (Calc) 33.9 L VBG Base Excess -1.8 L VBG Potassium 4.3 Glucose 176 H Lactate 1.8 FiO2 21.0 Sodium 140.0 Potassium Chloride 109.0 H Carbon Dioxide Anion Gap BUN Creatinine Est GFR ( Amer) Est GFR (Non-Af Amer) POC Glucose (mg/dL) Random Glucose Calcium Phosphorus Magnesium Iron TIBC % Saturation Ferritin Total Bilirubin AST ALT Alkaline Phosphatase Total Protein Albumin Globulin Albumin/Globulin Ratio Lipase Vitamin B12 TSH 3rd Generation Venous Blood Potassium 4.3 Urine Color Yellow Urine Clarity Slighty-cloudy Urine pH 7.0 Ur Specific [place] 1.015 Urine Protein 100 Urine Glucose (UA) Neg Urine Ketones Trace Urine Blood Negative Urine Nitrate Negative Urine Bilirubin Negative Urine Urobilinogen 0.2-1.0 Ur Leukocyte Esterase Neg Urine RBC (Auto) 1 Urine Microscopic WBC 2 Urine Bacteria Rare Hyaline Casts 0-2 Stool Occult Blood Positive H Blood Type Antibody Screen BBK History Checked 06/02/18 06/03/18 06/03/18 23:53 06:36 06:40 WBC 7.6 RBC 2.59 L Hgb 7.9 L Hct 24.3 L MCV 93.8 D MCH 30.5 MCHC 32.5 L RDW 16.1 H Plt Count 245 MPV Neut % (Auto) Lymph % (Auto) Frontier % (Auto) Eos % (Auto) Baso % (Auto) Neut # (Auto) Lymph # (Auto) Frontier # (Auto) Eos # (Auto) Baso # (Auto) PT INR APTT pO2 VBG pH VBG pCO2 VBG HCO3 VBG Total CO2 VBG O2 Sat (Calc) VBG Base Excess VBG Potassium Glucose Lactate FiO2 Sodium Potassium Chloride Carbon Dioxide Anion Gap BUN Creatinine Est GFR ( Amer) Est GFR (Non-Af Amer) POC Glucose (mg/dL) 117 H 93 Random Glucose Calcium Phosphorus Magnesium Iron TIBC % Saturation Ferritin Total Bilirubin AST ALT Alkaline Phosphatase Total Protein Albumin Globulin Albumin/Globulin Ratio Lipase Vitamin B12 TSH 3rd Generation Venous Blood Potassium Urine Color Urine Clarity Urine pH Ur Specific [place] Urine Protein Urine Glucose (UA) Urine Ketones Urine Blood Urine Nitrate Urine Bilirubin Urine Urobilinogen Ur Leukocyte Esterase Urine RBC (Auto) Urine Microscopic WBC Urine Bacteria Hyaline Casts Stool Occult Blood Blood Type Antibody Screen BBK History Checked 06/03/18 06/03/18 06/03/18 06:40 11:36 11:43 WBC RBC Hgb Hct MCV MCH MCHC RDW Plt Count MPV Neut % (Auto) Lymph % (Auto) [place] % (Auto) Eos % (Auto) Baso % (Auto) Neut # (Auto) Lymph # (Auto) [place] # (Auto) Eos # (Auto) Baso # (Auto) PT INR APTT pO2 VBG pH VBG pCO2 VBG HCO3 VBG Total CO2 VBG O2 Sat (Calc) VBG Base Excess VBG Potassium Glucose Lactate FiO2 Sodium 141 Potassium 4.0 Chloride 111 H Carbon Dioxide 20 L Anion Gap 14 BUN 32 H Creatinine 1.4 Est GFR ( Amer) 59 Est GFR (Non-Af Amer) 49 POC Glucose (mg/dL) 86 Random Glucose 92 Calcium 8.6 Phosphorus Magnesium Iron 21 L TIBC 253 % Saturation 8 L Ferritin Total Bilirubin 0.3 AST 13 L ALT 19 L Alkaline Phosphatase 77 Total Protein 5.9 L Albumin 3.0 L D Globulin 2.9 Albumin/Globulin Ratio 1.0 Lipase Vitamin B12 TSH 3rd Generation 1.57 Venous Blood Potassium Urine Color Urine Clarity Urine pH Ur Specific [place] Urine Protein Urine Glucose (UA) Urine Ketones Urine Blood Urine Nitrate Urine Bilirubin Urine Urobilinogen Ur Leukocyte Esterase Urine RBC (Auto) Urine Microscopic WBC Urine Bacteria Hyaline Casts Stool Occult Blood Blood Type Antibody Screen BBK History Checked 06/03/18 11:43 WBC RBC Hgb Hct MCV MCH MCHC RDW Plt Count MPV Neut % (Auto) Lymph % (Auto) [place] % (Auto) Eos % (Auto) Baso % (Auto) Neut # (Auto) Lymph # (Auto) [place] # (Auto) Eos # (Auto) Baso # (Auto) PT INR APTT pO2 VBG pH VBG pCO2 VBG HCO3 VBG Total CO2 VBG O2 Sat (Calc) VBG Base Excess VBG Potassium Glucose Lactate FiO2 Sodium Potassium Chloride Carbon Dioxide Anion Gap BUN Creatinine Est GFR ( Amer) Est GFR (Non-Af Amer) POC Glucose (mg/dL) Random Glucose Calcium Phosphorus Magnesium Iron TIBC % Saturation Ferritin 12.0 L Total Bilirubin AST ALT Alkaline Phosphatase Total Protein Albumin Globulin Albumin/Globulin Ratio Lipase Vitamin B12 677 TSH 3rd Generation Venous Blood Potassium Urine Color Urine Clarity Urine pH Ur Specific [place] Urine Protein Urine Glucose (UA) Urine Ketones Urine Blood Urine Nitrate Urine Bilirubin Urine Urobilinogen Ur Leukocyte Esterase Urine RBC (Auto) Urine Microscopic WBC Urine Bacteria Hyaline Casts Stool Occult Blood Blood Type Antibody Screen BBK History Checked Assessment & Plan - Assessment and Plan (Free Text) Assessment: 77M with history of CVA on Plavix presenting with melena #Acute blood loss anemia from GI bleed #CVA on Plavix #DM #HTN #Seizures #?Neurogenic bladder Plan: -Continue supportive care -CT findings noted for distended bladder, fecal impaction. -Agree with surgery, not volvulus. -Monitor Hb closely. Transfuse to maintain Hb >7. Repeat Hb today at 5pm and again in AM. -PPP IV BID -Barium enema to help visiualize colon, as well as clean out stool for eventual colonoscopy. He has had to CSPY aborted due to poor prep. -Hold Plavix for now. -EGD in AM -NPO past midnight. - Date & Time Date: 06/03/18 Time: 16:38
[2018-06-03] MEDS: POLYETHYLENE GLYCOL 3350 17 GM/Dose PACKET PO SCH (16:11)
[2018-06-03 19:10] LABS: HEMOGLOBIN 7.7 g/dL (12.0-18.0); MEAN CELL VOLUME 89.9 fl (80.0-94.0); MEAN CORPUSCULAR HEMOGLOBIN 30.3 pg (27.0-31.0); MEAN CORPUSCULAR HGB CONC 33.7 g/dL (33.0-37.0); RBC 2.53 Mil/uL (4.40-5.90); RED CELL DISTRIBUTION WIDTH 15.7 % (11.5-14.5); WHITE BLOOD COUNT 6.9 K/uL (4.8-10.8)
--- NOTE | 2018-06-03 19:58 | CP.PCM.HP ---
History of Present Illness - History of Present Illness History of Present Illness: 77 yo admitted for anemia and Urinary retention Present on Admission - Present on Admission Any Indicators Present on Admission: No Past Patient History - Past Medical History & Family History Past Medical History?: Yes - Past Social History Smoking Status: Never Smoked - CARDIAC Hx Hypercholesterolemia: Yes Hx Hypertension: Yes - PULMONARY Hx Respiratory Disorders: No - NEUROLOGICAL HX Cerebrovascular Accident: Yes Hx Seizures: Yes - HEENT Hx HEENT Problems: No - RENAL Hx Chronic Kidney Disease: No - ENDOCRINE/METABOLIC Hx Endocrine Disorders: Yes Hx Diabetes Mellitus Type 2: Yes - HEMATOLOGICAL/ONCOLOGICAL Hx Anemia: Yes Hx Human Immunodeficiency Virus (HIV): No - INTEGUMENTARY Hx Dermatological Problems: No - MUSCULOSKELETAL/RHEUMATOLOGICAL Hx Musculoskeletal Disorders: Yes Hx Falls: Yes Hx Unsteady Gait: Yes - GASTROINTESTINAL Hx Gastrointestinal Disorders: No - GENITOURINARY/GYNECOLOGICAL Hx Genitourinary Disorders: No Hx Prostate Problems: Yes - PSYCHIATRIC Hx Psychophysiologic Disorder: No Hx Emotional Abuse: No Hx Physical Abuse: No Hx Substance Use: No - SURGICAL HISTORY Hx Surgeries: Yes - ANESTHESIA Hx Anesthesia: Yes Hx Anesthesia Reactions: No Hx Malignant Hyperthermia: No Meds Allergies/Adverse Reactions: Allergies Allergy/AdvReac Type Severity Reaction Status Date / Time No Known Allergies Allergy Verified 06/02/18 18:28 Physical Exam - Respiratory Exam Respiratory Exam: NORMAL BREATHING PATTERN - Cardiovascular Exam Cardiovascular Exam: REGULAR RHYTHM - GI/Abdominal Exam GI & Abdominal Exam: Normal Bowel Sounds Results - Vital Signs Recent Vital Signs: Last Vital Signs Temp 98.2 F 06/03/18 16:07 Pulse 70 06/03/18 16:13 Resp 16 06/03/18 16:07 BP 130/65 06/03/18 16:13 Pulse Ox 94 L 06/03/18 16:07 - Labs Result Diagrams: 06/03/18 18:30 06/03/18 06:40 Labs: Laboratory Results - last 24 hr 06/02/18 06/02/18 06/02/18 19:05 19:37 23:53 WBC RBC Hgb Hct MCV MCH MCHC RDW Plt Count Sodium Potassium Chloride Carbon Dioxide Anion Gap BUN Creatinine Est GFR ( Amer) Est GFR (Non-Af Amer) POC Glucose (mg/dL) 117 H Random Glucose Calcium Iron TIBC % Saturation Ferritin Total Bilirubin AST ALT Alkaline Phosphatase Total Protein Albumin Globulin Albumin/Globulin Ratio Vitamin B12 TSH 3rd Generation Urine Color Yellow Urine Clarity Slighty-cloudy Urine pH 7.0 Ur Specific [place] 1.015 Urine Protein 100 Urine Glucose (UA) Neg Urine Ketones Trace Urine Blood Negative Urine Nitrate Negative Urine Bilirubin Negative Urine Urobilinogen 0.2-1.0 Ur Leukocyte Esterase Neg Urine RBC (Auto) 1 Urine Microscopic WBC 2 Urine Bacteria Rare Hyaline Casts 0-2 Stool Occult Blood Positive H Blood Type O POSITIVE Antibody Screen Negative BBK History Checked Patient has bt 06/03/18 06/03/18 06/03/18 06:36 06:40 06:40 WBC 7.6 RBC 2.59 L Hgb 7.9 L Hct 24.3 L MCV 93.8 D MCH 30.5 MCHC 32.5 L RDW 16.1 H Plt Count 245 Sodium 141 Potassium 4.0 Chloride 111 H Carbon Dioxide 20 L Anion Gap 14 BUN 32 H Creatinine 1.4 Est GFR ( Amer) 59 Est GFR (Non-Af Amer) 49 POC Glucose (mg/dL) 93 Random Glucose 92 Calcium 8.6 Iron TIBC % Saturation Ferritin Total Bilirubin 0.3 AST 13 L ALT 19 L Alkaline Phosphatase 77 Total Protein 5.9 L Albumin 3.0 L D Globulin 2.9 Albumin/Globulin Ratio 1.0 Vitamin B12 TSH 3rd Generation 1.57 Urine Color Urine Clarity Urine pH Ur Specific [place] Urine Protein Urine Glucose (UA) Urine Ketones Urine Blood Urine Nitrate Urine Bilirubin Urine Urobilinogen Ur Leukocyte Esterase Urine RBC (Auto) Urine Microscopic WBC Urine Bacteria Hyaline Casts Stool Occult Blood Blood Type Antibody Screen BBK History Checked 06/03/18 06/03/18 06/03/18 11:36 11:43 11:43 WBC RBC Hgb Hct MCV MCH MCHC RDW Plt Count Sodium Potassium Chloride Carbon Dioxide Anion Gap BUN Creatinine Est GFR ( Amer) Est GFR (Non-Af Amer) POC Glucose (mg/dL) 86 Random Glucose Calcium Iron 21 L TIBC 253 % Saturation 8 L Ferritin 12.0 L Total Bilirubin AST ALT Alkaline Phosphatase Total Protein Albumin Globulin Albumin/Globulin Ratio Vitamin B12 677 TSH 3rd Generation Urine Color Urine Clarity Urine pH Ur Specific [place] Urine Protein Urine Glucose (UA) Urine Ketones Urine Blood Urine Nitrate Urine Bilirubin Urine Urobilinogen Ur Leukocyte Esterase Urine RBC (Auto) Urine Microscopic WBC Urine Bacteria Hyaline Casts Stool Occult Blood Blood Type Antibody Screen BBK History Checked 06/03/18 06/03/18 16:43 18:30 WBC 6.9 RBC 2.53 L Hgb 7.7 L Hct 22.8 L MCV 89.9 D MCH 30.3 MCHC 33.7 RDW 15.7 H Plt Count 238 Sodium Potassium Chloride Carbon Dioxide Anion Gap BUN Creatinine Est GFR ( Amer) Est GFR (Non-Af Amer) POC Glucose (mg/dL) 118 H Random Glucose Calcium Iron TIBC % Saturation Ferritin Total Bilirubin AST ALT Alkaline Phosphatase Total Protein Albumin Globulin Albumin/Globulin Ratio Vitamin B12 TSH 3rd Generation Urine Color Urine Clarity Urine pH Ur Specific [place] Urine Protein Urine Glucose (UA) Urine Ketones Urine Blood Urine Nitrate Urine Bilirubin Urine Urobilinogen Ur Leukocyte Esterase Urine RBC (Auto) Urine Microscopic WBC Urine Bacteria Hyaline Casts Stool Occult Blood Blood Type Antibody Screen BBK History Checked Assessment & Plan - Assessment and Plan (Free Text) Assessment: GI sx Fecal impaction? Volvulus?? Anemia GI Bleed? Hbg 9 IVF Monitor H/H GI Surgery Urinary retention [facility] Acute L [place] ischemic CVA Hx L MCA CVA Hx Seizure disorder Neurology Hold Plavix NIDDM CKD Diabetic Nephropathy creat 1.6 Hypertension Dyslipidemia - Date & Time Date: 06/03/18 Time: 22:22
--- NOTE | 2018-06-03 22:43 | CP.PCM.CON ---
History of Present Illness - History of Present Illness History of Present Illness: 77 year old male with a history of DM, CVA, seizure disorder, anemia (iron deficiency/anemia of CKD) admitted with abdominal distention and vomiting, found to have constipation, urinary retention and anemia. The patient reports to recurrent hematochezia and black stools. He has had GI bleeding in the past. Past medical history: DM, CVA, seizures Past surgical history: None Family history: Denies hematologic and oncologic problems Social history: Former tobacco Allergies: NKA Review of systems: All remaining review of systems including HEENT, cardiovascular, respiratory, gastrointestinal, genitourinary, musculoskeletal, dermatologic, neurologic, and psychiatric are negative unless mentioned in the HPI. Past Patient History - Past Medical History & Family History Past Medical History?: Yes - Past Social History Smoking Status: Never Smoked - CARDIAC Hx Hypercholesterolemia: Yes Hx Hypertension: Yes - PULMONARY Hx Respiratory Disorders: No - NEUROLOGICAL HX Cerebrovascular Accident: Yes Hx Seizures: Yes - HEENT Hx HEENT Problems: No - RENAL Hx Chronic Kidney Disease: No - ENDOCRINE/METABOLIC Hx Endocrine Disorders: Yes Hx Diabetes Mellitus Type 2: Yes - HEMATOLOGICAL/ONCOLOGICAL Hx Anemia: Yes Hx Human Immunodeficiency Virus (HIV): No - INTEGUMENTARY Hx Dermatological Problems: No - MUSCULOSKELETAL/RHEUMATOLOGICAL Hx Musculoskeletal Disorders: Yes Hx Falls: Yes Hx Unsteady Gait: Yes - GASTROINTESTINAL Hx Gastrointestinal Disorders: No - GENITOURINARY/GYNECOLOGICAL Hx Genitourinary Disorders: No Hx Prostate Problems: Yes - PSYCHIATRIC Hx Psychophysiologic Disorder: No Hx Emotional Abuse: No Hx Physical Abuse: No Hx Substance Use: No - SURGICAL HISTORY Hx Surgeries: Yes - ANESTHESIA Hx Anesthesia: Yes Hx Anesthesia Reactions: No Hx Malignant Hyperthermia: No Meds Allergies/Adverse Reactions: Allergies Allergy/AdvReac Type Severity Reaction Status Date / Time No Known Allergies Allergy Verified 06/02/18 18:28 - Medications Medications: Current Medications Atorvastatin Calcium (Lipitor) 10 mg PO HS [facility] Carvedilol (Coreg) 12.5 mg PO BID [facility] Last Admin: 06/03/18 16:13 Dose: 12.5 mg Docusate Sodium (Colace) 100 mg PO BID [facility] Last Admin: 06/03/18 16:12 Dose: 100 mg Sodium Chloride (Sodium Chloride 0.45%) 1,000 mls @ 40 mls/hr IV .Q24H [facility] Stop: 06/04/18 23:46 Last Admin: 06/03/18 00:30 Dose: 40 mls/hr Levetiracetam (Keppra) 500 mg PO BID [facility] Last Admin: 06/03/18 16:13 Dose: 500 mg Metformin HCl (Glucophage) 500 mg PO TID [facility] Last Admin: 06/03/18 16:13 Dose: 500 mg Oxybutynin Chloride (Ditropan Tab) 5 mg PO QID [facility] Last Admin: 06/03/18 21:50 Dose: 5 mg Pantoprazole Sodium (Protonix Inj) 40 mg IVP BID [facility] Polyethylene Glycol (Miralax) 17 gm PO DAILY [facility] Last Admin: 06/03/18 16:11 Dose: 17 gm Tamsulosin HCl (Flomax) 0.8 mg PO DAILY [facility] Last Admin: 06/03/18 11:03 Dose: 0.8 mg Physical Exam - Head Exam Head Exam: ATRAUMATIC - Eye Exam Eye Exam: Normal appearance - ENT Exam ENT Exam: Mucous Membranes Dry - Respiratory Exam Respiratory Exam: NORMAL BREATHING PATTERN - Cardiovascular Exam Cardiovascular Exam: +S1, +S2 - GI/Abdominal Exam GI & Abdominal Exam: Normal Bowel Sounds Results - Vital Signs Recent Vital Signs: Last Vital Signs Temp 98.3 F 06/03/18 19:59 Pulse 62 06/03/18 19:59 Resp 17 06/03/18 19:59 BP 136/65 06/03/18 19:59 Pulse Ox 98 06/03/18 19:59 - Labs Result Diagrams: 06/03/18 18:30 06/03/18 06:40 Labs: Laboratory Results - last 24 hr 06/02/18 06/03/18 06/03/18 23:53 06:36 06:40 WBC 7.6 RBC 2.59 L Hgb 7.9 L Hct 24.3 L MCV 93.8 D MCH 30.5 MCHC 32.5 L RDW 16.1 H Plt Count 245 Sodium Potassium Chloride Carbon Dioxide Anion Gap BUN Creatinine Est GFR ( Amer) Est GFR (Non-Af Amer) POC Glucose (mg/dL) 117 H 93 Random Glucose Calcium Iron TIBC % Saturation Ferritin Total Bilirubin AST ALT Alkaline Phosphatase Total Protein Albumin Globulin Albumin/Globulin Ratio Vitamin B12 TSH 3rd Generation 06/03/18 06/03/18 06/03/18 06:40 11:36 11:43 WBC RBC Hgb Hct MCV MCH MCHC RDW Plt Count Sodium 141 Potassium 4.0 Chloride 111 H Carbon Dioxide 20 L Anion Gap 14 BUN 32 H Creatinine 1.4 Est GFR ( Amer) 59 Est GFR (Non-Af Amer) 49 POC Glucose (mg/dL) 86 Random Glucose 92 Calcium 8.6 Iron 21 L TIBC 253 % Saturation 8 L Ferritin Total Bilirubin 0.3 AST 13 L ALT 19 L Alkaline Phosphatase 77 Total Protein 5.9 L Albumin 3.0 L D Globulin 2.9 Albumin/Globulin Ratio 1.0 Vitamin B12 TSH 3rd Generation 1.57 06/03/18 06/03/18 06/03/18 11:43 16:43 18:30 WBC 6.9 RBC 2.53 L Hgb 7.7 L Hct 22.8 L MCV 89.9 D MCH 30.3 MCHC 33.7 RDW 15.7 H Plt Count 238 Sodium Potassium Chloride Carbon Dioxide Anion Gap BUN Creatinine Est GFR ( Amer) Est GFR (Non-Af Amer) POC Glucose (mg/dL) 118 H Random Glucose Calcium Iron TIBC % Saturation Ferritin 12.0 L Total Bilirubin AST ALT Alkaline Phosphatase Total Protein Albumin Globulin Albumin/Globulin Ratio Vitamin B12 677 TSH 3rd Generation 06/03/18 21:43 WBC RBC Hgb Hct MCV MCH MCHC RDW Plt Count Sodium Potassium Chloride Carbon Dioxide Anion Gap BUN Creatinine Est GFR ( Amer) Est GFR (Non-Af Amer) POC Glucose (mg/dL) 96 Random Glucose Calcium Iron TIBC % Saturation Ferritin Total Bilirubin AST ALT Alkaline Phosphatase Total Protein Albumin Globulin Albumin/Globulin Ratio Vitamin B12 TSH 3rd Generation Assessment & Plan (1) Anemia Assessment and Plan: w/u consistent with iron deficiency; will start IV Venofer GI evaluation; FOBT positive, plavix held anemia of CKD; will consider procrit once iron stores replenished to maintain hgb ~ 10 Thank you for this interesting consult. Status: Acute
[2018-06-04 06:02] LABS: BASO % 0.6 % (0.0-2.0); BLOOD UREA NITROGEN 20 mg/dl (9-20); CALCIUM 8.4 mg/dL (8.4-10.2); EOS # 0.3 K/uL (0.0-0.7); EOS % 4.5 % (0.0-4.0); GFR NON-AFRICAN AMERICAN > 60; HEMOGLOBIN 7.5 g/dL (12.0-18.0); LYMPH # 1.4 K/uL (1.0-4.3); LYMPH % 20.1 % (20.0-40.0); MEAN CELL VOLUME 90.2 fl (80.0-94.0); MEAN CORPUSCULAR HGB CONC 33.2 g/dL (33.0-37.0); MEAN PLATELET VOLUME 7.9 fl (7.2-11.7); MONO # 0.6 K/uL (0.0-0.8); MONO % 8.7 % (0.0-10.0); NEUT # 4.5 K/uL (1.8-7.0); NEUT % 66.1 % (50.0-75.0); NRBC % 0.1 % (0.0-0.0); RBC 2.5 Mil/uL (4.40-5.90); RED CELL DISTRIBUTION WIDTH 15.8 % (11.5-14.5); WHITE BLOOD COUNT 6.8 K/uL (4.8-10.8)
[2018-06-04] MEDS: POLYETHYLENE GLYCOL 3350 17 GM/Dose PACKET PO SCH (09:07)
--- NOTE | 2018-06-04 09:56 | CP.PCM.CON ---
History of Present Illness - History of Present Illness History of Present Illness: urology pt seen today because of urine retention >1400 cc residual he denies voiding issues in the past but in chart review i see that he was on flomax and oxybutinin. clinically he is markedly anemic normal renal function. a bladder us was ordered to check bladder and prostate size i will resume flomax and plan to give a voiding trial in several days Past Patient History - Past Medical History & Family History Past Medical History?: Yes - Past Social History Smoking Status: Never Smoked - CARDIAC Hx Hypercholesterolemia: Yes Hx Hypertension: Yes - PULMONARY Hx Respiratory Disorders: No - NEUROLOGICAL HX Cerebrovascular Accident: Yes Hx Seizures: Yes - HEENT Hx HEENT Problems: No - RENAL Hx Chronic Kidney Disease: No - ENDOCRINE/METABOLIC Hx Endocrine Disorders: Yes Hx Diabetes Mellitus Type 2: Yes - HEMATOLOGICAL/ONCOLOGICAL Hx Anemia: Yes Hx Human Immunodeficiency Virus (HIV): No - INTEGUMENTARY Hx Dermatological Problems: No - MUSCULOSKELETAL/RHEUMATOLOGICAL Hx Musculoskeletal Disorders: Yes Hx Falls: Yes Hx Unsteady Gait: Yes - GASTROINTESTINAL Hx Gastrointestinal Disorders: No - GENITOURINARY/GYNECOLOGICAL Hx Genitourinary Disorders: No Hx Prostate Problems: Yes - PSYCHIATRIC Hx Psychophysiologic Disorder: No Hx Emotional Abuse: No Hx Physical Abuse: No Hx Substance Use: No - SURGICAL HISTORY Hx Surgeries: Yes - ANESTHESIA Hx Anesthesia: Yes Hx Anesthesia Reactions: No Hx Malignant Hyperthermia: No Meds Allergies/Adverse Reactions: Allergies Allergy/AdvReac Type Severity Reaction Status Date / Time No Known Allergies Allergy Verified 06/02/18 18:28 - Medications Medications: Current Medications Atorvastatin Calcium (Lipitor) 10 mg PO HS [facility] Last Admin: 06/03/18 23:00 Dose: 10 mg Carvedilol (Coreg) 12.5 mg PO BID [facility] Last Admin: 06/04/18 09:06 Dose: Not Given Docusate Sodium (Colace) 100 mg PO BID [facility] Last Admin: 06/04/18 09:06 Dose: Not Given Sodium Chloride (Sodium Chloride 0.45%) 1,000 mls @ 40 mls/hr IV .Q24H [facility] Stop: 06/04/18 23:46 Last Admin: 06/03/18 23:50 Dose: 40 mls/hr Iron Sucrose 200 mg/ Sodium (Chloride) 110 mls @ 110 mls/hr IVPB DAILY [facility] Stop: 06/09/18 09:01 Levetiracetam (Keppra) 500 mg PO BID [facility] Last Admin: 06/04/18 09:07 Dose: Not Given Metformin HCl (Glucophage) 500 mg PO TID [facility] Last Admin: 06/04/18 09:06 Dose: Not Given Oxybutynin Chloride (Ditropan Tab) 5 mg PO QID [facility] Last Admin: 06/04/18 09:06 Dose: Not Given Pantoprazole Sodium (Protonix Inj) 40 mg IVP BID [facility] Last Admin: 06/04/18 09:07 Dose: 40 mg Polyethylene Glycol (Miralax) 17 gm PO DAILY [facility] Last Admin: 06/04/18 09:07 Dose: Not Given Tamsulosin HCl (Flomax) 0.8 mg PO DAILY [facility] Last Admin: 06/04/18 09:06 Dose: Not Given Results - Vital Signs Recent Vital Signs: Last Vital Signs Temp 98.6 F 06/04/18 08:05 Pulse 61 06/04/18 08:05 Resp 18 06/04/18 08:05 BP 154/70 H 06/04/18 08:05 Pulse Ox 99 06/04/18 08:05 - Labs Result Diagrams: 06/04/18 04:50 06/04/18 04:50 Labs: Laboratory Results - last 24 hr 06/02/18 06/02/18 06/03/18 19:05 23:53 06:36 WBC RBC Hgb Hct MCV MCH MCHC RDW Plt Count MPV Neut % (Auto) Lymph % (Auto) [place] % (Auto) Eos % (Auto) Baso % (Auto) Neut # (Auto) Lymph # (Auto) [place] # (Auto) Eos # (Auto) Baso # (Auto) Sodium Potassium Chloride Carbon Dioxide Anion Gap BUN Creatinine Est GFR ( Amer) Est GFR (Non-Af Amer) POC Glucose (mg/dL) 117 H 93 Random Glucose Calcium Iron TIBC % Saturation Ferritin Vitamin B12 Blood Type O POSITIVE Antibody Screen Negative Crossmatch See Detail BBK History Checked Patient has bt 06/03/18 06/03/18 06/03/18 11:36 11:43 11:43 WBC RBC Hgb Hct MCV MCH MCHC RDW Plt Count MPV Neut % (Auto) Lymph % (Auto) [place] % (Auto) Eos % (Auto) Baso % (Auto) Neut # (Auto) Lymph # (Auto) [place] # (Auto) Eos # (Auto) Baso # (Auto) Sodium Potassium Chloride Carbon Dioxide Anion Gap BUN Creatinine Est GFR ( Amer) Est GFR (Non-Af Amer) POC Glucose (mg/dL) 86 Random Glucose Calcium Iron 21 L TIBC 253 % Saturation 8 L Ferritin 12.0 L Vitamin B12 677 Blood Type Antibody Screen Crossmatch BBK History Checked 06/03/18 06/03/18 06/03/18 16:43 18:30 21:43 WBC 6.9 RBC 2.53 L Hgb 7.7 L Hct 22.8 L MCV 89.9 D MCH 30.3 MCHC 33.7 RDW 15.7 H Plt Count 238 MPV Neut % (Auto) Lymph % (Auto) [place] % (Auto) Eos % (Auto) Baso % (Auto) Neut # (Auto) Lymph # (Auto) [place] # (Auto) Eos # (Auto) Baso # (Auto) Sodium Potassium Chloride Carbon Dioxide Anion Gap BUN Creatinine Est GFR ( Amer) Est GFR (Non-Af Amer) POC Glucose (mg/dL) 118 H 96 Random Glucose Calcium Iron TIBC % Saturation Ferritin Vitamin B12 Blood Type Antibody Screen Crossmatch BBK History Checked 06/04/18 06/04/18 06/04/18 04:50 04:50 05:15 WBC 6.8 RBC 2.50 L Hgb 7.5 L Hct 22.6 L MCV 90.2 MCH 30.0 MCHC 33.2 RDW 15.8 H Plt Count 232 MPV 7.9 Neut % (Auto) 66.1 Lymph % (Auto) 20.1 [place] % (Auto) 8.7 Eos % (Auto) 4.5 H Baso % (Auto) 0.6 Neut # (Auto) 4.5 Lymph # (Auto) 1.4 [place] # (Auto) 0.6 Eos # (Auto) 0.3 Baso # (Auto) 0.0 Sodium 142 Potassium 4.2 Chloride 111 H Carbon Dioxide 22 Anion Gap 13 BUN 20 Creatinine 1.1 Est GFR ( Amer) > 60 Est GFR (Non-Af Amer) > 60 POC Glucose (mg/dL) 92 Random Glucose 90 Calcium 8.4 Iron TIBC % Saturation Ferritin Vitamin B12 Blood Type Antibody Screen Crossmatch BBK History Checked
--- NOTE | 2018-06-04 11:07 | CP.PCM.PN ---
Subjective - Date & Time of Evaluation Date of Evaluation: 06/04/18 Time of Evaluation: 10:30 - Subjective Subjective: General Surgery Pt Seen and examined. No acute events overnight. C/O mild suprapubic pain. No other complaints. Objective - Vital Signs/Intake and Output Vital Signs (last 24 hours): Temp Pulse Resp BP Pulse Ox 98.6 F 61 18 154/70 H 99 06/04/18 08:05 06/04/18 08:05 06/04/18 08:05 06/04/18 08:05 06/04/18 08:05 Intake and Output: 06/04/18 06/04/18 06:59 18:59 Intake Total 980 Output Total 1650 Balance -670 - Medications Medications: Current Medications Atorvastatin Calcium (Lipitor) 10 mg PO HS [facility] Last Admin: 06/03/18 23:00 Dose: 10 mg Carvedilol (Coreg) 12.5 mg PO BID [facility] Last Admin: 06/04/18 09:06 Dose: Not Given Docusate Sodium (Colace) 100 mg PO BID [facility] Last Admin: 06/04/18 09:06 Dose: Not Given Sodium Chloride (Sodium Chloride 0.45%) 1,000 mls @ 40 mls/hr IV .Q24H [facility] Stop: 06/04/18 23:46 Last Admin: 06/03/18 23:50 Dose: 40 mls/hr Iron Sucrose 200 mg/ Sodium (Chloride) 110 mls @ 110 mls/hr IVPB DAILY [facility] Stop: 06/09/18 09:01 Levetiracetam (Keppra) 500 mg PO BID [facility] Last Admin: 06/04/18 09:07 Dose: Not Given Metformin HCl (Glucophage) 500 mg PO TID [facility] Last Admin: 06/04/18 09:06 Dose: Not Given Oxybutynin Chloride (Ditropan Tab) 5 mg PO QID [facility] Last Admin: 06/04/18 09:06 Dose: Not Given Pantoprazole Sodium (Protonix Inj) 40 mg IVP BID [facility] Last Admin: 06/04/18 09:07 Dose: 40 mg Polyethylene Glycol (Miralax) 17 gm PO DAILY [facility] Last Admin: 06/04/18 09:07 Dose: Not Given Tamsulosin HCl (Flomax) 0.8 mg PO DAILY [facility] Last Admin: 06/04/18 09:06 Dose: Not Given - Labs Labs: 06/04/18 04:50 06/04/18 04:50 PT 12.6 Seconds (9.8-13.1) 06/02/18 19:07 INR 1.1 06/02/18 19:07 APTT 37.5 Seconds (25.6-37.1) H 06/02/18 19:07 - Constitutional Appears: Non-toxic, No Acute Distress - Head Exam Head Exam: ATRAUMATIC, NORMOCEPHALIC - Eye Exam Eye Exam: EOMI. absent: Scleral icterus - Respiratory Exam Respiratory Exam: NORMAL BREATHING PATTERN. absent: Respiratory Distress - Cardiovascular Exam Cardiovascular Exam: RRR, +S1, +S2 - GI/Abdominal Exam GI & Abdominal Exam: Soft, Tenderness (mild suprapubic). absent: Distended, Firm, Guarding, Rigid, Rebound - Neurological Exam Neurological Exam: Alert, Awake, Oriented x3 - Skin Skin Exam: Dry, Warm Assessment and Plan - Assessment and Plan (Free Text) Assessment: 77M with Constipation, urinary retention, s/p bronson catheter insertion. Plan: continue stool softeners. F/U GI recs F/U Urology recs D/W Dr. Bronson Larry PGY4
--- NOTE | 2018-06-04 13:14 | CP.PCM.PN ---
Subjective - Date & Time of Evaluation Date of Evaluation: 06/04/18 Time of Evaluation: 13:12 - Subjective Subjective: GI Fellow PGY4, progress note. Patient seen and examined, doing well. No complaints or acute overnight events. EGD canceled today for blood transfusion. Rescheduled for tomorrow. Objective - Vital Signs/Intake and Output Vital Signs (last 24 hours): Temp Pulse Resp BP Pulse Ox 97.4 F L 70 20 162/75 H 99 06/04/18 12:00 06/04/18 12:00 06/04/18 12:00 06/04/18 12:00 06/04/18 12:00 Intake and Output: 06/04/18 06/04/18 06:59 18:59 Intake Total 980 Output Total 1650 Balance -670 - Medications Medications: Current Medications Atorvastatin Calcium (Lipitor) 10 mg PO HS [facility] Last Admin: 06/03/18 23:00 Dose: 10 mg Carvedilol (Coreg) 12.5 mg PO BID [facility] Last Admin: 06/04/18 09:06 Dose: Not Given Docusate Sodium (Colace) 100 mg PO BID [facility] Last Admin: 06/04/18 09:06 Dose: Not Given Sodium Chloride (Sodium Chloride 0.45%) 1,000 mls @ 40 mls/hr IV .Q24H [facility] Stop: 06/04/18 23:46 Last Admin: 06/03/18 23:50 Dose: 40 mls/hr Iron Sucrose 200 mg/ Sodium (Chloride) 110 mls @ 110 mls/hr IVPB DAILY [facility] Stop: 06/09/18 09:01 Last Admin: 06/04/18 12:37 Dose: 110 mls/hr Levetiracetam (Keppra) 500 mg PO BID [facility] Last Admin: 06/04/18 09:07 Dose: Not Given Metformin HCl (Glucophage) 500 mg PO TID [facility] Last Admin: 06/04/18 09:06 Dose: Not Given Oxybutynin Chloride (Ditropan Tab) 5 mg PO QID [facility] Last Admin: 06/04/18 09:06 Dose: Not Given Pantoprazole Sodium (Protonix Inj) 40 mg IVP BID [facility] Last Admin: 06/04/18 09:07 Dose: 40 mg Polyethylene Glycol (Miralax) 17 gm PO DAILY [facility] Last Admin: 06/04/18 09:07 Dose: Not Given Tamsulosin HCl (Flomax) 0.8 mg PO DAILY [facility] Last Admin: 06/04/18 09:06 Dose: Not Given - Labs Labs: 06/04/18 04:50 06/04/18 04:50 PT 12.6 Seconds (9.8-13.1) 06/02/18 19:07 INR 1.1 06/02/18 19:07 APTT 37.5 Seconds (25.6-37.1) H 06/02/18 19:07 - Constitutional Appears: Well - Head Exam Head Exam: NORMAL INSPECTION - Eye Exam Eye Exam: Normal appearance - ENT Exam ENT Exam: Normal Exam - Respiratory Exam Respiratory Exam: Clear to Ausculation Bilateral, NORMAL BREATHING PATTERN. absent: Wheezes - Cardiovascular Exam Cardiovascular Exam: REGULAR RHYTHM - GI/Abdominal Exam GI & Abdominal Exam: Soft, Normal Bowel Sounds. absent: Tenderness - Neurological Exam Neurological Exam: Alert, Awake, Oriented x3 - Psychiatric Exam Psychiatric exam: Normal Affect, Normal Mood - Skin Skin Exam: Normal Color Assessment and Plan - Assessment and Plan (Free Text) Assessment: 77M with history of CVA on Plavix presenting with melena #Acute blood loss anemia from GI bleed #CVA on Plavix #DM #HTN #Seizures #?Neurogenic bladder Plan: -Continue supportive care -CT findings noted for distended bladder, fecal impaction. -Agree with surgery, not volvulus. -Monitor Hb closely. Transfuse to maintain Hb >7. -PPI IV BID -Barium enema to help visiualize colon, as well as clean out stool for eventual colonoscopy. He has two CSPY aborted due to poor prep. -Hold Plavix for now. -EGD planned for 06/05/18 -NPO past midnight.
--- NOTE | 2018-06-04 13:15 | RAD ---
Date of service: 06/04/2018 PROCEDURE: HISTORY: redundant colon, abnl CT ? sigmoid volvulus COMPARISON: CT abdomen and pelvis 06/02/2018 TECHNIQUE: Initially the exam began with Gastroview for bottles and 1200 mL of water FINDINGS: Per rectum, the water-soluble contrast mix was infused initially. The rectum is markedly patulous and filled with stool. The extremely redundant rectosigmoid colon looped over into the right side of the abdomen. Continued redundancy of the colon is noted at the splenic flexure extensive stool was also noted. There was no beak like narrowing of the sigmoid colon to suggest a twisting of the sigmoid colon around its mesenteries as typically seen with sigmoid volvulus. The positioning of the this portion of the colon is attributed to marked redundancy not only here by elsewhere in the colon. After no beak like narrowing of the sigmoid was demonstrated to suggested sigmoid volvulus, diluted barium was added to the bag in an attempt to further opacify more proximal portions of this markedly redundant and moderately distended colon filled with stool. . The patient had difficulty in maintaining this contrast. This barium administered contrast was leaking out more than could be held and/or infused Nevertheless there is contrast seen in the transverse colon. Extensive stool is seen in the hepatic flexure T IMPRESSION: No a sigmoid volvulus demonstrated at this setting. Instead this portion of the colon including other portions of the left colon are markedly redundant and moderately distended and extensive the filled with stool.
--- NOTE | 2018-06-04 18:39 | CP.PCM.PN ---
Subjective - Date & Time of Evaluation Date of Evaluation: 06/04/18 Time of Evaluation: 22:22 - Subjective Subjective: Hbg 7.5 Objective - Vital Signs/Intake and Output Vital Signs (last 24 hours): Temp Pulse Resp BP Pulse Ox 98.4 F 65 17 166/67 H 99 06/04/18 17:36 06/04/18 17:36 06/04/18 17:36 06/04/18 17:36 06/04/18 16:16 Intake and Output: 06/04/18 06/04/18 06:59 18:59 Intake Total 980 1725 Output Total 1650 650 Balance -670 1075 - Medications Medications: Current Medications Atorvastatin Calcium (Lipitor) 10 mg PO HS [facility] Last Admin: 06/03/18 23:00 Dose: 10 mg Carvedilol (Coreg) 12.5 mg PO BID [facility] Last Admin: 06/04/18 16:06 Dose: 12.5 mg Docusate Sodium (Colace) 100 mg PO BID [facility] Last Admin: 06/04/18 16:06 Dose: 100 mg Sodium Chloride (Sodium Chloride 0.45%) 1,000 mls @ 40 mls/hr IV .Q24H [facility] Stop: 06/04/18 23:46 Last Admin: 06/03/18 23:50 Dose: 40 mls/hr Iron Sucrose 200 mg/ Sodium (Chloride) 110 mls @ 110 mls/hr IVPB DAILY [facility] Stop: 06/09/18 09:01 Last Admin: 06/04/18 12:37 Dose: 110 mls/hr Levetiracetam (Keppra) 500 mg PO BID [facility] Last Admin: 06/04/18 16:05 Dose: 500 mg Metformin HCl (Glucophage) 500 mg PO TID [facility] Last Admin: 06/04/18 16:05 Dose: 500 mg Oxybutynin Chloride (Ditropan Tab) 5 mg PO QID [facility] Last Admin: 06/04/18 16:05 Dose: 5 mg Pantoprazole Sodium (Protonix Inj) 40 mg IVP BID [facility] Last Admin: 06/04/18 16:07 Dose: 40 mg Polyethylene Glycol (Miralax) 17 gm PO DAILY [facility] Last Admin: 06/04/18 09:07 Dose: Not Given Tamsulosin HCl (Flomax) 0.8 mg PO DAILY [facility] Last Admin: 06/04/18 09:06 Dose: Not Given - Labs Labs: 06/04/18 04:50 06/04/18 04:50 PT 12.6 Seconds (9.8-13.1) 06/02/18 19:07 INR 1.1 06/02/18 19:07 APTT 37.5 Seconds (25.6-37.1) H 06/02/18 19:07 - Respiratory Exam Respiratory Exam: NORMAL BREATHING PATTERN - Cardiovascular Exam Cardiovascular Exam: REGULAR RHYTHM - GI/Abdominal Exam GI & Abdominal Exam: Normal Bowel Sounds Assessment and Plan - Assessment and Plan (Free Text) Assessment: GI sx Fecal impaction? (Volvulus??) Anemia GI Bleed? 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
--- NOTE | 2018-06-04 23:11 | CON ---
Copied To: Oleksandr Moore MD Attending MD: Oleksandr Moore MD DATE: 06/04/2018 REASON FOR CONSULTATION: History of CVA, on anticoagulation, and having GI bleed. HISTORY OF PRESENT ILLNESS: Patient is a 77-year-old male with history of cerebrovascular accident. Apparently patient had a pontine stroke. Patient was admitted because of anemia and urinary retention. Patient was found to have GI bleed. Patient has been taking Plavix at home. Patient said that he also has history of seizures. Seizure was after he had his stroke. His last seizure was several months ago. He has been taking Keppra and tolerating it very well. He still has slurring of speech and difficulty with swallowing since he had this stroke. REVIEW OF SYSTEMS: Denies any headache, dizziness, chest pain, shortness of breath, abdominal pain, constipation, diarrhea, dysuria, pyuria, cough, or sputum production. PAST MEDICAL HISTORY: Includes diabetes mellitus, hypercholesterolemia, hypertension, and history of cerebrovascular accident. MEDICATIONS: At home included oxybutynin, Flomax, Glucophage, Keppra, Zocor, Protonix, Plavix, and Coreg. ALLERGIES: NO KNOWN DRUG ALLERGIES. SOCIAL HISTORY: Patient denies smoking, use of alcohol, or illicit drugs. FAMILY HISTORY: Reviewed and noncontributory to the case. PHYSICAL EXAMINATION GENERAL: Patient is an elderly male, lying on the bed, in no acute distress. VITAL SIGNS: His blood pressure is 162/75, heart rate is 70 per minute, breathing at a rate of 16 per minute, and temperature is 97.4 degrees Fahrenheit. HEENT: Head, normocephalic and atraumatic. NECK: Supple. There are no carotid bruits. LUNGS: Clear. CARDIOVASCULAR: S1 and S2 audible. No murmurs. ABDOMEN: Soft and nontender with bowel sounds present. NEUROLOGIC EXAMINATION: Mental status: Patient is awake, alert, oriented to place and person. Speech is dysarthric. Naming and repetition are normal. Memory and cognition appear intact. Cranial nerve examination: Pupils are 3 mm, bilaterally reactive to light. Visual alaniz are full. Extraocular movements are intact. There is no facial asymmetry. Palate is upgoing bilaterally and tongue is midline. Motor examination: Tone is normal. Power is 4/5 bilaterally in the upper extremities, in the lower extremities on the left is 4/5 and on the right is 3 to 4/5. Reflexes are 1+ and symmetrical with absent ankle jerk. Plantars are downgoing bilaterally. Cerebellar examination: [id number] shows no dysmetria. Gait is deferred at the moment. LABORATORY DATA: Labs reviewed, showed WBC of 6.8, hemoglobin of 7.5, hematocrit of 22.6, and platelets of 232. His INR is 1.1. His sodium is 142, potassium 4.2, chloride 111, carbon dioxide content of 22, BUN of 20, creatinine 1.1, and glucose of 90. IMPRESSION: 1. Seizure disorder. 2. History of old cerebrovascular accident (pontine infarction). RECOMMENDATIONS: 1. Patient to be continued on Keppra 500 mg twice a day as his seizure has been well controlled with current antiepileptic medication. 2. Patient currently has GI bleed. Once stable and okay from GI standpoint, patient to be restarted on low dose of aspirin that is 81 mg once a day for stroke prophylaxis. 3. Patient to be continued on atorvastatin. 4. Patient to have speech therapy evaluation for his persistent dysarthria. 5. Patient also to have physical therapy evaluation. 6. Please continue supportive care and other treatment. Thank you for the opportunity to participate in the care of this patient. Oleksandr Moore MD
[2018-06-04] MEDS: Sodium Chloride 0.45% 1,000 ML IV SCH (23:42)
[2018-06-05 07:02] LABS: HEMOGLOBIN 10.6 g/dL (12.0-18.0); MEAN CELL VOLUME 89.1 fl (80.0-94.0); MEAN CORPUSCULAR HEMOGLOBIN 30.7 pg (27.0-31.0); MEAN CORPUSCULAR HGB CONC 34.4 g/dL (33.0-37.0); RBC 3.45 Mil/uL (4.40-5.90); RED CELL DISTRIBUTION WIDTH 15.9 % (11.5-14.5)
[2018-06-05 07:10] LABS: BLOOD UREA NITROGEN 13 mg/dl (9-20); CALCIUM 8.4 mg/dL (8.4-10.2); GFR NON-AFRICAN AMERICAN > 60
--- NOTE | 2018-06-05 08:43 | CP.PCM.PN ---
Subjective - Date & Time of Evaluation Date of Evaluation: 06/05/18 Time of Evaluation: 07:30 - Subjective Subjective: General Surgery Dr. Dobson Pt S&E @bedside. NAEO. pt has no complaints. denies abd pain, f/c, n/v. tolerating diet. (+)small BM. Objective - Vital Signs/Intake and Output Vital Signs (last 24 hours): Temp Pulse Resp BP Pulse Ox 98.6 F 63 18 166/74 H 95 06/05/18 08:20 06/05/18 08:20 06/05/18 08:20 06/05/18 08:20 06/05/18 08:20 Intake and Output: 06/05/18 06/05/18 06:59 18:59 Intake Total 1430 Output Total 1050 Balance 380 - Medications Medications: Current Medications Atorvastatin Calcium (Lipitor) 10 mg PO HS [facility] Last Admin: 06/04/18 21:34 Dose: 10 mg Carvedilol (Coreg) 12.5 mg PO BID [facility] Last Admin: 06/04/18 16:06 Dose: 12.5 mg Docusate Sodium (Colace) 100 mg PO BID [facility] Last Admin: 06/04/18 16:06 Dose: 100 mg Iron Sucrose 200 mg/ Sodium (Chloride) 110 mls @ 110 mls/hr IVPB DAILY [facility] Stop: 06/09/18 09:01 Last Admin: 06/04/18 12:37 Dose: 110 mls/hr Levetiracetam (Keppra) 500 mg PO BID [facility] Last Admin: 06/04/18 16:05 Dose: 500 mg Metformin HCl (Glucophage) 500 mg PO TID [facility] Last Admin: 06/04/18 16:05 Dose: 500 mg Oxybutynin Chloride (Ditropan Tab) 5 mg PO QID [facility] Last Admin: 06/04/18 21:36 Dose: 5 mg Pantoprazole Sodium (Protonix Inj) 40 mg IVP BID [facility] Last Admin: 06/04/18 16:07 Dose: 40 mg Polyethylene Glycol (Miralax) 17 gm PO DAILY [facility] Last Admin: 06/04/18 09:07 Dose: Not Given Tamsulosin HCl (Flomax) 0.8 mg PO DAILY [facility] Last Admin: 06/04/18 09:06 Dose: Not Given - Labs Labs: 06/05/18 05:30 06/05/18 05:30 PT 12.6 Seconds (9.8-13.1) 06/02/18 19:07 INR 1.1 06/02/18 19:07 APTT 37.5 Seconds (25.6-37.1) H 06/02/18 19:07 - Constitutional Appears: Non-toxic, No Acute Distress - Head Exam Head Exam: NORMAL INSPECTION - Eye Exam Eye Exam: Normal appearance - ENT Exam ENT Exam: Mucous Membranes Moist - Respiratory Exam Respiratory Exam: NORMAL BREATHING PATTERN. absent: Accessory Muscle Use, Respiratory Distress - Cardiovascular Exam Cardiovascular Exam: REGULAR RHYTHM. absent: Bradycardia, Tachycardia - GI/Abdominal Exam GI & Abdominal Exam: Soft. absent: Distended, Tenderness - Extremities Exam Extremities Exam: Normal Inspection - Neurological Exam Neurological Exam: Alert, Awake, Oriented x3 - Psychiatric Exam Psychiatric exam: Normal Affect, Normal Mood - Skin Skin Exam: Dry, Intact, Normal Color, Warm Assessment and Plan - Assessment and Plan (Free Text) Assessment: 77 y/o M w/ BRBPR, constipation, and urinary retention s/p bronson catheter insertion. - cont stool softeners. - monitor bowel fxn - f/u GI recs - f/u Urology recs - encourage OOB to chair/Amb - GI/DVT PPx Pt discussed w/ Dr. Bronson Ann DO PGY3
[2018-06-05] MEDS: POLYETHYLENE GLYCOL 3350 17 GM/Dose PACKET PO SCH (09:05)
[2018-06-05] MEDS ORDERED: Lactated Ringer's 500 ML IV ONE (12:05)
[2018-06-05] MEDS ORDERED: Propofol 10 mg/ml Inj (20 ML) ONE (12:59)
[2018-06-05] MEDS: Nystatin 100,000 Units/ml Oral Susp 5 ml UD PO SCH ×2 (17:05→21:45)
--- NOTE | 2018-06-05 21:09 | CP.PCM.PN ---
Subjective - Date & Time of Evaluation Date of Evaluation: 06/05/18 Time of Evaluation: 22:22 - Subjective Subjective: Endoscopy today S/P transfusion x 2 u Objective - Vital Signs/Intake and Output Vital Signs (last 24 hours): Temp Pulse Resp BP Pulse Ox 98.2 F 69 20 159/74 H 97 06/05/18 20:23 06/05/18 20:23 06/05/18 20:23 06/05/18 20:23 06/05/18 20:23 Intake and Output: 06/05/18 06/06/18 18:59 06:59 Intake Total 200 420 Output Total 1400 Balance 200 -980 - Medications Medications: Current Medications Atorvastatin Calcium (Lipitor) 10 mg PO HS [facility] Last Admin: 06/04/18 21:34 Dose: 10 mg Carvedilol (Coreg) 12.5 mg PO BID [facility] Last Admin: 06/05/18 17:03 Dose: 12.5 mg Docusate Sodium (Colace) 100 mg PO BID [facility] Last Admin: 06/05/18 17:04 Dose: 100 mg Iron Sucrose 200 mg/ Sodium (Chloride) 110 mls @ 110 mls/hr IVPB DAILY [facility] Stop: 06/09/18 09:01 Last Admin: 06/05/18 14:38 Dose: 110 mls/hr Levetiracetam (Keppra) 500 mg PO BID [facility] Last Admin: 06/05/18 17:05 Dose: 500 mg Metformin HCl (Glucophage) 500 mg PO TID [facility] Last Admin: 06/05/18 17:04 Dose: 500 mg Nystatin (Nystatin Oral Susp) 5 ml PO QID [facility] Last Admin: 06/05/18 17:05 Dose: 5 ml Oxybutynin Chloride (Ditropan Tab) 5 mg PO QID [facility] Last Admin: 06/05/18 17:04 Dose: 5 mg Pantoprazole Sodium (Protonix Inj) 40 mg IVP BID [facility] Last Admin: 06/05/18 17:05 Dose: 40 mg Polyethylene Glycol (Miralax) 17 gm PO DAILY [facility] Last Admin: 06/05/18 09:05 Dose: Not Given Tamsulosin HCl (Flomax) 0.8 mg PO DAILY [facility] Last Admin: 06/05/18 09:03 Dose: 0.8 mg - Labs Labs: 06/05/18 05:30 06/05/18 05:30 PT 12.6 Seconds (9.8-13.1) 06/02/18 19:07 INR 1.1 06/02/18 19:07 APTT 37.5 Seconds (25.6-37.1) H 06/02/18 19:07 - Respiratory Exam Respiratory Exam: NORMAL BREATHING PATTERN - Cardiovascular Exam Cardiovascular Exam: REGULAR RHYTHM - GI/Abdominal Exam GI & Abdominal Exam: Normal Bowel Sounds Assessment and Plan - Assessment and Plan (Free Text) Assessment: GI sx Fecal impaction? (Volvulus??) Anemia GI Bleed? 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
--- NOTE | 2018-06-05 22:14 | CP.PCM.PN ---
Subjective - Date & Time of Evaluation Date of Evaluation: 06/05/18 Time of Evaluation: 20:00 - Subjective Subjective: Feeling better s/p PRBC transfusion s/p EGD - no active bleeding; 2 gastric polyps removed Objective - Vital Signs/Intake and Output Vital Signs (last 24 hours): Temp Pulse Resp BP Pulse Ox 98.2 F 69 20 159/74 H 97 06/05/18 20:23 06/05/18 20:23 06/05/18 20:23 06/05/18 20:23 06/05/18 20:23 Intake and Output: 06/05/18 06/06/18 18:59 06:59 Intake Total 200 420 Output Total 1400 Balance 200 -980 - Medications Medications: Current Medications Atorvastatin Calcium (Lipitor) 10 mg PO HS [facility] Last Admin: 06/05/18 21:45 Dose: 10 mg Carvedilol (Coreg) 12.5 mg PO BID [facility] Last Admin: 06/05/18 17:03 Dose: 12.5 mg Docusate Sodium (Colace) 100 mg PO BID [facility] Last Admin: 06/05/18 17:04 Dose: 100 mg Iron Sucrose 200 mg/ Sodium (Chloride) 110 mls @ 110 mls/hr IVPB DAILY [facility] Stop: 06/09/18 09:01 Last Admin: 06/05/18 14:38 Dose: 110 mls/hr Levetiracetam (Keppra) 500 mg PO BID [facility] Last Admin: 06/05/18 17:05 Dose: 500 mg Metformin HCl (Glucophage) 500 mg PO TID [facility] Last Admin: 06/05/18 17:04 Dose: 500 mg Nystatin (Nystatin Oral Susp) 5 ml PO QID [facility] Last Admin: 06/05/18 21:45 Dose: 5 ml Oxybutynin Chloride (Ditropan Tab) 5 mg PO QID [facility] Last Admin: 06/05/18 21:45 Dose: 5 mg Pantoprazole Sodium (Protonix Inj) 40 mg IVP BID [facility] Last Admin: 06/05/18 17:05 Dose: 40 mg Polyethylene Glycol (Miralax) 17 gm PO DAILY [facility] Last Admin: 06/05/18 09:05 Dose: Not Given Tamsulosin HCl (Flomax) 0.8 mg PO DAILY [facility] Last Admin: 06/05/18 09:03 Dose: 0.8 mg - Labs Labs: 06/05/18 05:30 06/05/18 05:30 PT 12.6 Seconds (9.8-13.1) 06/02/18 19:07 INR 1.1 06/02/18 19:07 APTT 37.5 Seconds (25.6-37.1) H 06/02/18 19:07 - Head Exam Head Exam: ATRAUMATIC - Eye Exam Eye Exam: Normal appearance - ENT Exam ENT Exam: Mucous Membranes Dry - Respiratory Exam Respiratory Exam: NORMAL BREATHING PATTERN - Cardiovascular Exam Cardiovascular Exam: +S1, +S2 - GI/Abdominal Exam GI & Abdominal Exam: Normal Bowel Sounds Assessment and Plan (1) Anemia Assessment & Plan: iron deficiency anemia from GI blood loss s/p PRBC transfusion on IV iron GI w/u - s/p EGD; no active bleeding Status: Acute
[2018-06-06 06:35] LABS: HEMOGLOBIN 10.1 g/dL (12.0-18.0); MEAN CELL VOLUME 87.9 fl (80.0-94.0); MEAN CORPUSCULAR HEMOGLOBIN 29.9 pg (27.0-31.0); RBC 3.37 Mil/uL (4.40-5.90); RED CELL DISTRIBUTION WIDTH 15.8 % (11.5-14.5); WHITE BLOOD COUNT 6.2 K/uL (4.8-10.8)
[2018-06-06 07:00] LABS: BLOOD UREA NITROGEN 14 mg/dl (9-20); CALCIUM 8.3 mg/dL (8.4-10.2); GFR NON-AFRICAN AMERICAN > 60
[2018-06-06] MEDS: POLYETHYLENE GLYCOL 3350 17 GM/Dose PACKET PO SCH (08:39)
[2018-06-06] MEDS: Nystatin 100,000 Units/ml Oral Susp 5 ml UD PO SCH ×4 (08:39→21:54)
--- NOTE | 2018-06-06 08:41 | CP.PCM.PN ---
Subjective - Date & Time of Evaluation Date of Evaluation: 06/06/18 Time of Evaluation: 08:41 - Subjective Subjective: General surgery progress note for Dr. Wilian Barcenas, PGY-2 Pt S & E at bedside at 0740 Pt reports small BM yesterday, passing gas. Had an EGD, well tolerated yesterday. Denies N & V, F & C. Objective - Vital Signs/Intake and Output Vital Signs (last 24 hours): Temp Pulse Resp BP Pulse Ox 98.5 F 66 18 155/72 H 97 06/06/18 08:20 06/06/18 08:38 06/06/18 08:20 06/06/18 08:38 06/06/18 08:20 Intake and Output: 06/06/18 06/06/18 06:59 18:59 Intake Total 900 Output Total 2200 Balance -1300 - Medications Medications: Current Medications Atorvastatin Calcium (Lipitor) 10 mg PO HS [facility] Last Admin: 06/05/18 21:45 Dose: 10 mg Bisacodyl (Dulcolax) 10 mg [place] BID [facility] Carvedilol (Coreg) 12.5 mg PO BID [facility] Last Admin: 06/06/18 08:38 Dose: 12.5 mg Docusate Sodium (Colace) 100 mg PO BID [facility] Last Admin: 06/06/18 08:38 Dose: 100 mg Iron Sucrose 200 mg/ Sodium (Chloride) 110 mls @ 110 mls/hr IVPB DAILY [facility] Stop: 06/09/18 09:01 Last Admin: 06/05/18 14:38 Dose: 110 mls/hr Levetiracetam (Keppra) 500 mg PO BID [facility] Last Admin: 06/06/18 08:37 Dose: 500 mg Metformin HCl (Glucophage) 500 mg PO TID [facility] Last Admin: 06/06/18 08:37 Dose: 500 mg Nystatin (Nystatin Oral Susp) 5 ml PO QID [facility] Last Admin: 06/06/18 08:39 Dose: 5 ml Oxybutynin Chloride (Ditropan Tab) 5 mg PO QID [facility] Last Admin: 06/06/18 08:37 Dose: 5 mg Pantoprazole Sodium (Protonix Inj) 40 mg IVP BID [facility] Last Admin: 06/06/18 08:39 Dose: 40 mg Polyethylene Glycol (Miralax) 17 gm PO DAILY [facility] Last Admin: 06/06/18 08:39 Dose: 17 gm Tamsulosin HCl (Flomax) 0.8 mg PO DAILY [facility] Last Admin: 06/06/18 08:37 Dose: 0.8 mg - Labs Labs: 06/06/18 05:40 06/06/18 05:40 PT 12.6 Seconds (9.8-13.1) 06/02/18 19:07 INR 1.1 06/02/18 19:07 APTT 37.5 Seconds (25.6-37.1) H 06/02/18 19:07 - Constitutional Appears: Non-toxic, No Acute Distress - Head Exam Head Exam: ATRAUMATIC, NORMAL INSPECTION, NORMOCEPHALIC - Eye Exam Eye Exam: EOMI, Normal appearance - ENT Exam ENT Exam: Mucous Membranes Moist, Normal Exam - Neck Exam Neck Exam: Full ROM, Normal Inspection - Respiratory Exam Respiratory Exam: NORMAL BREATHING PATTERN - Cardiovascular Exam Cardiovascular Exam: REGULAR RHYTHM, +S1, +S2 - GI/Abdominal Exam GI & Abdominal Exam: Soft. absent: Distended, Firm, Guarding, Tenderness - Extremities Exam Extremities Exam: Normal Inspection - Neurological Exam Neurological Exam: Alert, Awake, CN II-XII Intact, Oriented x3 - Psychiatric Exam Psychiatric exam: Normal Affect, Normal Mood - Skin Skin Exam: Dry, Intact, Normal Color, Warm Assessment and Plan - Assessment and Plan (Free Text) Assessment: 77M w/BRBPR, constipation, urinary retention s/p bronson insertion Plan: Cont bowel regimen Added Dulcolax MD BID Encourage OOBTC Ambulate Further mgmt as per GI, urology, & Primary team No surgical intervention at this time Please re-consult as needed MAKENNA attending Swapna, PGY-2
--- NOTE | 2018-06-06 13:33 | CP.PCM.PN ---
Subjective - Date & Time of Evaluation Date of Evaluation: 06/06/18 Time of Evaluation: 13:31 - Subjective Subjective: Doing well. No complaints of abdominal pain, nausea, vomiting. Tolerating diet. Objective - Vital Signs/Intake and Output Vital Signs (last 24 hours): Temp Pulse Resp BP Pulse Ox 98.4 F 67 18 146/77 95 06/06/18 12:30 06/06/18 12:30 06/06/18 12:30 06/06/18 12:30 06/06/18 12:30 Intake and Output: 06/06/18 06/06/18 06:59 18:59 Intake Total 900 Output Total 2200 Balance -1300 - Medications Medications: Current Medications Atorvastatin Calcium (Lipitor) 10 mg PO HS [facility] Last Admin: 06/05/18 21:45 Dose: 10 mg Bisacodyl (Dulcolax) 10 mg [place] BID [facility] Last Admin: 06/06/18 11:12 Dose: 10 mg Carvedilol (Coreg) 12.5 mg PO BID [facility] Last Admin: 06/06/18 08:38 Dose: 12.5 mg Docusate Sodium (Colace) 100 mg PO BID [facility] Last Admin: 06/06/18 08:38 Dose: 100 mg Iron Sucrose 200 mg/ Sodium (Chloride) 110 mls @ 110 mls/hr IVPB DAILY [facility] Stop: 06/09/18 09:01 Last Admin: 06/06/18 11:11 Dose: 110 mls/hr Levetiracetam (Keppra) 500 mg PO BID [facility] Last Admin: 06/06/18 08:37 Dose: 500 mg Metformin HCl (Glucophage) 500 mg PO TID [facility] Last Admin: 06/06/18 13:07 Dose: 500 mg Nystatin (Nystatin Oral Susp) 5 ml PO QID [facility] Last Admin: 06/06/18 13:07 Dose: 5 ml Oxybutynin Chloride (Ditropan Tab) 5 mg PO QID [facility] Last Admin: 06/06/18 13:06 Dose: 5 mg Pantoprazole Sodium (Protonix Inj) 40 mg IVP BID [facility] Last Admin: 06/06/18 08:39 Dose: 40 mg Polyethylene Glycol (Miralax) 17 gm PO DAILY [facility] Last Admin: 06/06/18 08:39 Dose: 17 gm Tamsulosin HCl (Flomax) 0.8 mg PO DAILY [facility] Last Admin: 06/06/18 08:37 Dose: 0.8 mg - Labs Labs: 06/06/18 05:40 06/06/18 05:40 PT 12.6 Seconds (9.8-13.1) 06/02/18 19:07 INR 1.1 06/02/18 19:07 APTT 37.5 Seconds (25.6-37.1) H 06/02/18 19:07 - Constitutional Appears: Non-toxic, No Acute Distress, Chronically Ill - Head Exam Head Exam: NORMAL INSPECTION - Eye Exam Eye Exam: Normal appearance - ENT Exam ENT Exam: Normal Exam - Respiratory Exam Respiratory Exam: Clear to Ausculation Bilateral, NORMAL BREATHING PATTERN. absent: Wheezes - Cardiovascular Exam Cardiovascular Exam: REGULAR RHYTHM, +S1, +S2 - GI/Abdominal Exam GI & Abdominal Exam: Distended, Soft, Hyperactive Bowel Sounds. absent: Tenderness - Extremities Exam Extremities Exam: Full ROM, Normal Inspection - Neurological Exam Neurological Exam: Alert, Awake - Psychiatric Exam Psychiatric exam: Normal Affect, Normal Mood - Skin Skin Exam: Dry, Intact, Normal Color Assessment and Plan - Assessment and Plan (Free Text) Assessment: 77M with history of CVA on Plavix presenting with melena #Acute blood loss anemia from GI bleed #CVA on Plavix #DM #HTN #Seizures #?Neurogenic bladder Plan: -CT findings noted for distended bladder, fecal impaction. -EGD 06/05/18 showed gastric polyp, no obvious source of GI bleed. -Monitor Hb closely. Transfuse to maintain Hb >7. -PPI can be discontinued as there is no PUD -Recommend starting low dose aspirin Saturday for stoke prophylaxis. Avoid Plavix if possible. -Okay to resume heart healthy diet. -Colonoscopy can be done as an outpatient
--- NOTE | 2018-06-06 19:07 | CP.PCM.PN ---
Subjective - Date & Time of Evaluation Date of Evaluation: 06/06/18 Time of Evaluation: 22:22 - Subjective Subjective: Above noted Objective - Vital Signs/Intake and Output Vital Signs (last 24 hours): Temp Pulse Resp BP Pulse Ox 98.4 F 73 20 150/78 97 06/06/18 16:15 06/06/18 16:43 06/06/18 16:15 06/06/18 16:43 06/06/18 16:15 - Medications Medications: Current Medications Atorvastatin Calcium (Lipitor) 10 mg PO HS [facility] Last Admin: 06/05/18 21:45 Dose: 10 mg Bisacodyl (Dulcolax) 10 mg [place] BID [facility] Last Admin: 06/06/18 16:43 Dose: Not Given Carvedilol (Coreg) 12.5 mg PO BID [facility] Last Admin: 06/06/18 16:43 Dose: 12.5 mg Docusate Sodium (Colace) 100 mg PO BID [facility] Last Admin: 06/06/18 16:43 Dose: Not Given Iron Sucrose 200 mg/ Sodium (Chloride) 110 mls @ 110 mls/hr IVPB DAILY [facility] Stop: 06/09/18 09:01 Last Admin: 06/06/18 11:11 Dose: 110 mls/hr Levetiracetam (Keppra) 500 mg PO BID [facility] Last Admin: 06/06/18 16:42 Dose: 500 mg Metformin HCl (Glucophage) 500 mg PO TID [facility] Last Admin: 06/06/18 16:42 Dose: 500 mg Nystatin (Nystatin Oral Susp) 5 ml PO QID [facility] Last Admin: 06/06/18 16:42 Dose: 5 ml Oxybutynin Chloride (Ditropan Tab) 5 mg PO QID [facility] Last Admin: 06/06/18 16:43 Dose: 5 mg Pantoprazole Sodium (Protonix Inj) 40 mg IVP BID [facility] Last Admin: 06/06/18 16:41 Dose: 40 mg Polyethylene Glycol (Miralax) 17 gm PO DAILY [facility] Last Admin: 06/06/18 08:39 Dose: 17 gm Tamsulosin HCl (Flomax) 0.8 mg PO DAILY [facility] Last Admin: 06/06/18 08:37 Dose: 0.8 mg - Labs Labs: 06/06/18 05:40 06/06/18 05:40 PT 12.6 Seconds (9.8-13.1) 06/02/18 19:07 INR 1.1 06/02/18 19:07 APTT 37.5 Seconds (25.6-37.1) H 06/02/18 19:07 - Respiratory Exam Respiratory Exam: NORMAL BREATHING PATTERN - Cardiovascular Exam Cardiovascular Exam: REGULAR RHYTHM - GI/Abdominal Exam GI & Abdominal Exam: Normal Bowel Sounds Assessment and Plan - Assessment and Plan (Free Text) Assessment: GI sx Fecal impaction? (Volvulus??) Anemia GI Bleed? 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
--- NOTE | 2018-06-06 22:24 | CP.PCM.PN ---
Subjective - Date & Time of Evaluation Date of Evaluation: 06/06/18 Time of Evaluation: 20:00 - Subjective Subjective: No complaints. Objective - Vital Signs/Intake and Output Vital Signs (last 24 hours): Temp Pulse Resp BP Pulse Ox 98.4 F 73 20 150/78 96 06/06/18 16:15 06/06/18 16:43 06/06/18 16:15 06/06/18 16:43 06/06/18 21:22 - Medications Medications: Current Medications Atorvastatin Calcium (Lipitor) 10 mg PO HS [facility] Last Admin: 06/06/18 21:54 Dose: 10 mg Bisacodyl (Dulcolax) 10 mg [place] BID [facility] Last Admin: 06/06/18 16:43 Dose: Not Given Carvedilol (Coreg) 12.5 mg PO BID [facility] Last Admin: 06/06/18 16:43 Dose: 12.5 mg Docusate Sodium (Colace) 100 mg PO BID [facility] Last Admin: 06/06/18 16:43 Dose: Not Given Iron Sucrose 200 mg/ Sodium (Chloride) 110 mls @ 110 mls/hr IVPB DAILY [facility] Stop: 06/09/18 09:01 Last Admin: 06/06/18 11:11 Dose: 110 mls/hr Levetiracetam (Keppra) 500 mg PO BID [facility] Last Admin: 06/06/18 16:42 Dose: 500 mg Metformin HCl (Glucophage) 500 mg PO TID [facility] Last Admin: 06/06/18 16:42 Dose: 500 mg Nystatin (Nystatin Oral Susp) 5 ml PO QID [facility] Last Admin: 06/06/18 21:54 Dose: 5 ml Oxybutynin Chloride (Ditropan Tab) 5 mg PO QID [facility] Last Admin: 06/06/18 21:54 Dose: 5 mg Pantoprazole Sodium (Protonix Inj) 40 mg IVP BID [facility] Last Admin: 06/06/18 16:41 Dose: 40 mg Polyethylene Glycol (Miralax) 17 gm PO DAILY [facility] Last Admin: 06/06/18 08:39 Dose: 17 gm Tamsulosin HCl (Flomax) 0.8 mg PO DAILY [facility] Last Admin: 06/06/18 08:37 Dose: 0.8 mg - Labs Labs: 06/06/18 05:40 06/06/18 05:40 PT 12.6 Seconds (9.8-13.1) 06/02/18 19:07 INR 1.1 06/02/18 19:07 APTT 37.5 Seconds (25.6-37.1) H 06/02/18 19:07 - Head Exam Head Exam: ATRAUMATIC - Eye Exam Eye Exam: Normal appearance - ENT Exam ENT Exam: Mucous Membranes Dry - Respiratory Exam Respiratory Exam: NORMAL BREATHING PATTERN - Cardiovascular Exam Cardiovascular Exam: +S1, +S2 - GI/Abdominal Exam GI & Abdominal Exam: Normal Bowel Sounds Assessment and Plan (1) Anemia Assessment & Plan: iron deficiency; on IV iron s/p PRBC transfusion Status: Acute
[2018-06-07 06:47] LABS: HEMOGLOBIN 10.4 g/dL (12.0-18.0); MEAN CELL VOLUME 88.9 fl (80.0-94.0); MEAN CORPUSCULAR HEMOGLOBIN 29.6 pg (27.0-31.0); MEAN CORPUSCULAR HGB CONC 33.3 g/dL (33.0-37.0); RBC 3.51 Mil/uL (4.40-5.90); RED CELL DISTRIBUTION WIDTH 15.8 % (11.5-14.5); WHITE BLOOD COUNT 6.6 K/uL (4.8-10.8)
[2018-06-07 07:03] LABS: BLOOD UREA NITROGEN 17 mg/dl (9-20); CALCIUM 8.4 mg/dL (8.4-10.2); GFR NON-AFRICAN AMERICAN 59
--- NOTE | 2018-06-07 07:31 | CP.PCM.PN ---
Subjective - Date & Time of Evaluation Date of Evaluation: 06/07/18 Time of Evaluation: 22:22 - Subjective Subjective: Above noted Objective - Vital Signs/Intake and Output Vital Signs (last 24 hours): Temp Pulse Resp BP Pulse Ox 98.1 F 68 18 143/80 96 06/07/18 05:00 06/07/18 05:00 06/07/18 05:00 06/07/18 05:00 06/07/18 05:00 Intake and Output: 06/07/18 06/07/18 06:59 18:59 Intake Total 600 Output Total 800 Balance -200 - Medications Medications: Current Medications Atorvastatin Calcium (Lipitor) 10 mg PO HS [facility] Last Admin: 06/06/18 21:54 Dose: 10 mg Bisacodyl (Dulcolax) 10 mg [place] BID [facility] Last Admin: 06/06/18 16:43 Dose: Not Given Carvedilol (Coreg) 12.5 mg PO BID [facility] Last Admin: 06/06/18 16:43 Dose: 12.5 mg Docusate Sodium (Colace) 100 mg PO BID [facility] Last Admin: 06/06/18 16:43 Dose: Not Given Iron Sucrose 200 mg/ Sodium (Chloride) 110 mls @ 110 mls/hr IVPB DAILY [facility] Stop: 06/09/18 09:01 Last Admin: 06/06/18 11:11 Dose: 110 mls/hr Levetiracetam (Keppra) 500 mg PO BID [facility] Last Admin: 06/06/18 16:42 Dose: 500 mg Metformin HCl (Glucophage) 500 mg PO TID [facility] Last Admin: 06/06/18 16:42 Dose: 500 mg Nystatin (Nystatin Oral Susp) 5 ml PO QID [facility] Last Admin: 06/06/18 21:54 Dose: 5 ml Oxybutynin Chloride (Ditropan Tab) 5 mg PO QID [facility] Last Admin: 06/06/18 21:54 Dose: 5 mg Pantoprazole Sodium (Protonix Inj) 40 mg IVP BID [facility] Last Admin: 06/06/18 16:41 Dose: 40 mg Polyethylene Glycol (Miralax) 17 gm PO DAILY [facility] Last Admin: 06/06/18 08:39 Dose: 17 gm Tamsulosin HCl (Flomax) 0.8 mg PO DAILY [facility] Last Admin: 06/06/18 08:37 Dose: 0.8 mg - Labs Labs: 06/07/18 05:25 06/07/18 05:25 PT 12.6 Seconds (9.8-13.1) 06/02/18 19:07 INR 1.1 06/02/18 19:07 APTT 37.5 Seconds (25.6-37.1) H 06/02/18 19:07 - Respiratory Exam Respiratory Exam: NORMAL BREATHING PATTERN - Cardiovascular Exam Cardiovascular Exam: REGULAR RHYTHM - GI/Abdominal Exam GI & Abdominal Exam: Normal Bowel Sounds Assessment and Plan - Assessment and Plan (Free Text) Assessment: GI sx Fecal impaction? Anemia GI Bleed? 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
[2018-06-07] MEDS: Nystatin 100,000 Units/ml Oral Susp 5 ml UD PO SCH ×4 (09:41→21:53)
[2018-06-07] MEDS: POLYETHYLENE GLYCOL 3350 17 GM/Dose PACKET PO SCH (09:41)
[2018-06-07] MEDS ORDERED: Chlorhexidine Gluconate 1 APPL/PKT TP ONE ×2 (09:55→16:23)
--- NOTE | 2018-06-07 18:15 | CP.PCM.PN ---
Subjective - Date & Time of Evaluation Date of Evaluation: 06/07/18 Time of Evaluation: 17:00 - Subjective Subjective: No complaints Objective - Vital Signs/Intake and Output Vital Signs (last 24 hours): Temp Pulse Resp BP Pulse Ox 98.0 F 73 18 126/68 97 06/07/18 16:14 06/07/18 16:21 06/07/18 16:14 06/07/18 16:21 06/07/18 16:14 Intake and Output: 06/07/18 06/07/18 06:59 18:59 Intake Total 600 Output Total 800 Balance -200 - Medications Medications: Current Medications Atorvastatin Calcium (Lipitor) 10 mg PO HS [facility] Last Admin: 06/06/18 21:54 Dose: 10 mg Bisacodyl (Dulcolax) 10 mg [place] BID [facility] Last Admin: 06/07/18 16:21 Dose: 10 mg Carvedilol (Coreg) 12.5 mg PO BID [facility] Last Admin: 06/07/18 16:21 Dose: 12.5 mg Docusate Sodium (Colace) 100 mg PO BID [facility] Last Admin: 06/07/18 16:20 Dose: 100 mg Iron Sucrose 200 mg/ Sodium (Chloride) 110 mls @ 110 mls/hr IVPB DAILY [facility] Stop: 06/09/18 09:01 Last Admin: 06/07/18 09:41 Dose: 110 mls/hr Levetiracetam (Keppra) 500 mg PO BID [facility] Last Admin: 06/07/18 16:20 Dose: 500 mg Metformin HCl (Glucophage) 500 mg PO TID [facility] Last Admin: 06/07/18 16:20 Dose: 500 mg Nystatin (Nystatin Oral Susp) 5 ml PO QID [facility] Last Admin: 06/07/18 16:20 Dose: 5 ml Oxybutynin Chloride (Ditropan Tab) 5 mg PO QID [facility] Last Admin: 06/07/18 16:20 Dose: 5 mg Pantoprazole Sodium (Protonix Inj) 40 mg IVP BID [facility] Last Admin: 06/07/18 16:20 Dose: 40 mg Polyethylene Glycol (Miralax) 17 gm PO DAILY [facility] Last Admin: 06/07/18 09:41 Dose: 17 gm Tamsulosin HCl (Flomax) 0.8 mg PO DAILY [facility] Last Admin: 06/07/18 09:40 Dose: 0.8 mg - Labs Labs: 06/07/18 05:25 06/07/18 05:25 PT 12.6 Seconds (9.8-13.1) 06/02/18 19:07 INR 1.1 06/02/18 19:07 APTT 37.5 Seconds (25.6-37.1) H 06/02/18 19:07 - Head Exam Head Exam: ATRAUMATIC - Eye Exam Eye Exam: Normal appearance - ENT Exam ENT Exam: Mucous Membranes Dry - Respiratory Exam Respiratory Exam: NORMAL BREATHING PATTERN - Cardiovascular Exam Cardiovascular Exam: +S1, +S2 - GI/Abdominal Exam GI & Abdominal Exam: Normal Bowel Sounds Assessment and Plan (1) Anemia Assessment & Plan: iron deficiency; on IV iron s/p 2 U PRBC transfusion dual antiplatelet held H/H improving Status: Acute
[2018-06-08] MEDS: Nystatin 100,000 Units/ml Oral Susp 5 ml UD PO SCH ×4 (10:34→21:40)
[2018-06-08] MEDS: POLYETHYLENE GLYCOL 3350 17 GM/Dose PACKET PO SCH (10:36)
--- NOTE | 2018-06-08 12:20 | CP.PCM.PN ---
Subjective - Date & Time of Evaluation Date of Evaluation: 06/08/18 Time of Evaluation: 22:22 - Subjective Subjective: Hbg 10.1 Objective - Vital Signs/Intake and Output Vital Signs (last 24 hours): Temp Pulse Resp BP Pulse Ox 98.1 F 75 18 149/73 95 06/08/18 08:32 06/08/18 10:35 06/08/18 08:32 06/08/18 10:35 06/08/18 08:32 - Medications Medications: Current Medications Atorvastatin Calcium (Lipitor) 10 mg PO HS [facility] Last Admin: 06/07/18 21:53 Dose: 10 mg Bisacodyl (Dulcolax) 10 mg [place] BID [facility] Last Admin: 06/08/18 10:36 Dose: Not Given Carvedilol (Coreg) 12.5 mg PO BID [facility] Last Admin: 06/08/18 10:35 Dose: 12.5 mg Docusate Sodium (Colace) 100 mg PO BID [facility] Last Admin: 06/08/18 10:35 Dose: 100 mg Iron Sucrose 200 mg/ Sodium (Chloride) 110 mls @ 110 mls/hr IVPB DAILY [facility] Stop: 06/09/18 09:01 Last Admin: 06/08/18 10:34 Dose: 110 mls/hr Levetiracetam (Keppra) 500 mg PO BID [facility] Last Admin: 06/08/18 10:36 Dose: 500 mg Metformin HCl (Glucophage) 500 mg PO TID [facility] Last Admin: 06/08/18 10:35 Dose: 500 mg Nystatin (Nystatin Oral Susp) 5 ml PO QID [facility] Last Admin: 06/08/18 10:34 Dose: 5 ml Oxybutynin Chloride (Ditropan Tab) 5 mg PO QID [facility] Last Admin: 06/08/18 10:35 Dose: 5 mg Pantoprazole Sodium (Protonix Inj) 40 mg IVP BID [facility] Last Admin: 06/08/18 10:34 Dose: 40 mg Polyethylene Glycol (Miralax) 17 gm PO DAILY [facility] Last Admin: 06/08/18 10:36 Dose: 17 gm Tamsulosin HCl (Flomax) 0.8 mg PO DAILY [facility] Last Admin: 06/08/18 10:34 Dose: 0.8 mg - Labs Labs: 06/07/18 05:25 06/07/18 05:25 PT 12.6 Seconds (9.8-13.1) 06/02/18 19:07 INR 1.1 06/02/18 19:07 APTT 37.5 Seconds (25.6-37.1) H 06/02/18 19:07 - Respiratory Exam Respiratory Exam: NORMAL BREATHING PATTERN - Cardiovascular Exam Cardiovascular Exam: REGULAR RHYTHM - GI/Abdominal Exam GI & Abdominal Exam: Normal Bowel Sounds Assessment and Plan - Assessment and Plan (Free Text) Assessment: GI sx Fecal impaction? Anemia GI Bleed? 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
--- NOTE | 2018-06-08 15:14 | CP.PCM.PN ---
Subjective - Date & Time of Evaluation Date of Evaluation: 06/08/18 Time of Evaluation: 15:11 - Subjective Subjective: Patient w/o complaint. No recent BMs. Objective - Vital Signs/Intake and Output Vital Signs (last 24 hours): Temp Pulse Resp BP Pulse Ox 98.6 F 71 18 132/72 98 06/08/18 12:35 06/08/18 12:35 06/08/18 12:35 06/08/18 12:35 06/08/18 12:35 - Medications Medications: Current Medications Atorvastatin Calcium (Lipitor) 10 mg PO HS [facility] Last Admin: 06/07/18 21:53 Dose: 10 mg Bisacodyl (Dulcolax) 10 mg [place] BID [facility] Last Admin: 06/08/18 10:36 Dose: Not Given Carvedilol (Coreg) 12.5 mg PO BID [facility] Last Admin: 06/08/18 10:35 Dose: 12.5 mg Docusate Sodium (Colace) 100 mg PO BID [facility] Last Admin: 06/08/18 10:35 Dose: 100 mg Iron Sucrose 200 mg/ Sodium (Chloride) 110 mls @ 110 mls/hr IVPB DAILY [facility] Stop: 06/09/18 09:01 Last Admin: 06/08/18 10:34 Dose: 110 mls/hr Levetiracetam (Keppra) 500 mg PO BID [facility] Last Admin: 06/08/18 10:36 Dose: 500 mg Metformin HCl (Glucophage) 500 mg PO TID [facility] Last Admin: 06/08/18 13:17 Dose: 500 mg Nystatin (Nystatin Oral Susp) 5 ml PO QID [facility] Last Admin: 06/08/18 13:17 Dose: 5 ml Oxybutynin Chloride (Ditropan Tab) 5 mg PO QID [facility] Last Admin: 06/08/18 13:17 Dose: 5 mg Pantoprazole Sodium (Protonix Inj) 40 mg IVP BID [facility] Last Admin: 06/08/18 10:34 Dose: 40 mg Polyethylene Glycol (Miralax) 17 gm PO DAILY [facility] Last Admin: 06/08/18 10:36 Dose: 17 gm Tamsulosin HCl (Flomax) 0.8 mg PO DAILY [facility] Last Admin: 06/08/18 10:34 Dose: 0.8 mg - Labs Labs: 06/07/18 05:25 06/07/18 05:25 PT 12.6 Seconds (9.8-13.1) 06/02/18 19:07 INR 1.1 06/02/18 19:07 APTT 37.5 Seconds (25.6-37.1) H 06/02/18 19:07 - Head Exam Head Exam: ATRAUMATIC - Eye Exam Eye Exam: Normal appearance - ENT Exam ENT Exam: Mucous Membranes Moist - Neck Exam Neck Exam: Full ROM - Respiratory Exam Respiratory Exam: Clear to Ausculation Bilateral - Cardiovascular Exam Cardiovascular Exam: REGULAR RHYTHM, +S1, +S2 - GI/Abdominal Exam GI & Abdominal Exam: Soft. absent: Tenderness Assessment and Plan (1) Anemia Assessment & Plan: No further evidence of GI bleeding. Hgb stable. May restart ASA 81 mg daily. Status: Acute
[2018-06-08] MEDS ORDERED: Chlorhexidine Gluconate 1 APPL/PKT TP ONE (17:06)
[2018-06-09] MEDS: Nystatin 100,000 Units/ml Oral Susp 5 ml UD PO SCH ×4 (09:26→21:10)
[2018-06-09] MEDS: POLYETHYLENE GLYCOL 3350 17 GM/Dose PACKET PO SCH (09:28)
[2018-06-09] MEDS ORDERED: Lidocaine 2% Jelly (Uro-Jet) ONE (11:14)
[2018-06-09] MEDS ORDERED: Chlorhexidine Gluconate 1 APPL/PKT TP ONE (16:12)
--- NOTE | 2018-06-09 19:15 | CP.PCM.PN ---
Subjective - Date & Time of Evaluation Date of Evaluation: 06/09/18 Time of Evaluation: 22:22 - Subjective Subjective: GI note appreciated Cystoscopy today Objective - Vital Signs/Intake and Output Vital Signs (last 24 hours): Temp Pulse Resp BP Pulse Ox 97.4 F L 64 20 174/76 H 95 06/09/18 15:57 06/09/18 16:01 06/09/18 15:57 06/09/18 16:01 06/09/18 15:57 Intake and Output: 06/09/18 06/10/18 18:59 06:59 Output Total 300 Balance -300 - Medications Medications: Current Medications Atorvastatin Calcium (Lipitor) 10 mg PO HS [facility] Last Admin: 06/08/18 21:40 Dose: 10 mg Bisacodyl (Dulcolax) 10 mg [place] BID [facility] Last Admin: 06/09/18 16:04 Dose: 10 mg Carvedilol (Coreg) 12.5 mg PO BID [facility] Last Admin: 06/09/18 16:01 Dose: 12.5 mg Docusate Sodium (Colace) 100 mg PO BID [facility] Last Admin: 06/09/18 16:01 Dose: 100 mg Levetiracetam (Keppra) 500 mg PO BID [facility] Last Admin: 06/09/18 16:03 Dose: 500 mg Metformin HCl (Glucophage) 500 mg PO TID [facility] Last Admin: 06/09/18 18:15 Dose: 500 mg Nystatin (Nystatin Oral Susp) 5 ml PO QID [facility] Last Admin: 06/09/18 18:15 Dose: 5 ml Oxybutynin Chloride (Ditropan Tab) 5 mg PO QID [facility] Last Admin: 06/09/18 18:15 Dose: 5 mg Pantoprazole Sodium (Protonix Inj) 40 mg IVP BID [facility] Last Admin: 06/09/18 16:03 Dose: 40 mg Polyethylene Glycol (Miralax) 17 gm PO DAILY [facility] Last Admin: 06/09/18 09:28 Dose: 17 gm Tamsulosin HCl (Flomax) 0.8 mg PO DAILY [facility] Last Admin: 06/09/18 09:27 Dose: 0.8 mg - Labs Labs: 06/07/18 05:25 06/07/18 05:25 PT 12.6 Seconds (9.8-13.1) 06/02/18 19:07 INR 1.1 06/02/18 19:07 APTT 37.5 Seconds (25.6-37.1) H 06/02/18 19:07 - Respiratory Exam Respiratory Exam: NORMAL BREATHING PATTERN - Cardiovascular Exam Cardiovascular Exam: REGULAR RHYTHM - GI/Abdominal Exam GI & Abdominal Exam: Normal Bowel Sounds Assessment and Plan - Assessment and Plan (Free Text) Assessment: GI sx Fecal impaction? Anemia GI Bleed? 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
--- NOTE | 2018-06-09 21:32 | CP.PCM.PN ---
Subjective - Date & Time of Evaluation Date of Evaluation: 06/09/18 Time of Evaluation: 14:00 - Subjective Subjective: Patient eating well with no evidence of GI bleeding. Objective - Vital Signs/Intake and Output Vital Signs (last 24 hours): Temp Pulse Resp BP Pulse Ox 98.3 F 71 20 144/69 93 L 06/09/18 19:23 06/09/18 19:23 06/09/18 19:23 06/09/18 19:23 06/09/18 19:23 Intake and Output: 06/09/18 06/10/18 18:59 06:59 Output Total 300 Balance -300 - Medications Medications: Current Medications Atorvastatin Calcium (Lipitor) 10 mg PO HS [facility] Last Admin: 06/09/18 21:10 Dose: 10 mg Bisacodyl (Dulcolax) 10 mg [place] BID [facility] Last Admin: 06/09/18 16:04 Dose: 10 mg Carvedilol (Coreg) 12.5 mg PO BID [facility] Last Admin: 06/09/18 16:01 Dose: 12.5 mg Docusate Sodium (Colace) 100 mg PO BID [facility] Last Admin: 06/09/18 16:01 Dose: 100 mg Levetiracetam (Keppra) 500 mg PO BID [facility] Last Admin: 06/09/18 16:03 Dose: 500 mg Metformin HCl (Glucophage) 500 mg PO TID [facility] Last Admin: 06/09/18 18:15 Dose: 500 mg Nystatin (Nystatin Oral Susp) 5 ml PO QID [facility] Last Admin: 06/09/18 21:10 Dose: 5 ml Oxybutynin Chloride (Ditropan Tab) 5 mg PO QID [facility] Last Admin: 06/09/18 21:10 Dose: 5 mg Pantoprazole Sodium (Protonix Inj) 40 mg IVP BID [facility] Last Admin: 06/09/18 16:03 Dose: 40 mg Polyethylene Glycol (Miralax) 17 gm PO DAILY [facility] Last Admin: 06/09/18 09:28 Dose: 17 gm Tamsulosin HCl (Flomax) 0.8 mg PO DAILY [facility] Last Admin: 06/09/18 09:27 Dose: 0.8 mg - Labs Labs: 06/07/18 05:25 06/07/18 05:25 PT 12.6 Seconds (9.8-13.1) 06/02/18 19:07 INR 1.1 06/02/18 19:07 APTT 37.5 Seconds (25.6-37.1) H 06/02/18 19:07 - Head Exam Head Exam: ATRAUMATIC - Eye Exam Eye Exam: Normal appearance Pupil Exam: NORMAL ACCOMODATION - ENT Exam ENT Exam: Mucous Membranes Moist - Neck Exam Neck Exam: Full ROM - Respiratory Exam Respiratory Exam: NORMAL BREATHING PATTERN - Cardiovascular Exam Cardiovascular Exam: REGULAR RHYTHM - GI/Abdominal Exam GI & Abdominal Exam: Normal Bowel Sounds Assessment and Plan (1) Anemia Assessment & Plan: Previous upper endoscopy failed to show source of bleed. Could have beed a healed ulcer or small bowel lesion. Occurred while patient taking Plavix/ASA. Will give just low dose ASA and follow clinically. Status: Acute
--- NOTE | 2018-06-10 00:18 | CP.PCM.PN ---
Subjective - Date & Time of Evaluation Date of Evaluation: 06/10/18 Time of Evaluation: 00:12 - Subjective Subjective: urology I cystoscoped patient earlier today. He does not have significant prostate occlusion to account for his failure to void. Spoke with concerning his condition and medications.The CVA has played a major role in his current retention. Will modify his meds and then give a repeat voiding trial Objective - Vital Signs/Intake and Output Vital Signs (last 24 hours): Temp Pulse Resp BP Pulse Ox 98.3 F 70 20 144/69 93 L 06/09/18 19:23 06/09/18 21:00 06/09/18 19:23 06/09/18 19:23 06/09/18 19:23 Intake and Output: 06/09/18 06/10/18 18:59 06:59 Output Total 300 Balance -300 - Medications Medications: Current Medications Atorvastatin Calcium (Lipitor) 10 mg PO HS [facility] Last Admin: 06/09/18 21:10 Dose: 10 mg Bisacodyl (Dulcolax) 10 mg [place] BID [facility] Last Admin: 06/09/18 16:04 Dose: 10 mg Carvedilol (Coreg) 12.5 mg PO BID [facility] Last Admin: 06/09/18 16:01 Dose: 12.5 mg Docusate Sodium (Colace) 100 mg PO BID [facility] Last Admin: 06/09/18 16:01 Dose: 100 mg Levetiracetam (Keppra) 500 mg PO BID [facility] Last Admin: 06/09/18 16:03 Dose: 500 mg Metformin HCl (Glucophage) 500 mg PO TID [facility] Last Admin: 06/09/18 18:15 Dose: 500 mg Nystatin (Nystatin Oral Susp) 5 ml PO QID [facility] Last Admin: 06/09/18 21:10 Dose: 5 ml Oxybutynin Chloride (Ditropan Tab) 5 mg PO QID [facility] Last Admin: 06/09/18 21:10 Dose: 5 mg Pantoprazole Sodium (Protonix Inj) 40 mg IVP BID [facility] Last Admin: 06/09/18 16:03 Dose: 40 mg Polyethylene Glycol (Miralax) 17 gm PO DAILY [facility] Last Admin: 06/09/18 09:28 Dose: 17 gm Tamsulosin HCl (Flomax) 0.8 mg PO DAILY [facility] Last Admin: 06/09/18 09:27 Dose: 0.8 mg - Labs Labs: 06/07/18 05:25 06/07/18 05:25 PT 12.6 Seconds (9.8-13.1) 06/02/18 19:07 INR 1.1 06/02/18 19:07 APTT 37.5 Seconds (25.6-37.1) H 06/02/18 19:07
[2018-06-10] MEDS: POLYETHYLENE GLYCOL 3350 17 GM/Dose PACKET PO SCH (09:57)
[2018-06-10] MEDS: Bethanechol 50 MG TAB PO SCH ×3 (09:57→17:19)
[2018-06-10] MEDS: Nystatin 100,000 Units/ml Oral Susp 5 ml UD PO SCH ×4 (09:58→21:19)
[2018-06-10] MEDS: Pantoprazole 40 mg EC Tab PO SCH ×2 (10:02→17:23)
[2018-06-10 12:58] LABS: HEMOGLOBIN 10.1 g/dL (12.0-18.0); MEAN CELL VOLUME 89.5 fl (80.0-94.0); MEAN CORPUSCULAR HEMOGLOBIN 30.7 pg (27.0-31.0); MEAN CORPUSCULAR HGB CONC 34.3 g/dL (33.0-37.0); RBC 3.29 Mil/uL (4.40-5.90); RED CELL DISTRIBUTION WIDTH 16.3 % (11.5-14.5)
--- NOTE | 2018-06-10 17:11 | CP.PCM.PN ---
Subjective - Date & Time of Evaluation Date of Evaluation: 06/10/18 Time of Evaluation: 22:22 - Subjective Subjective: ABove noted Objective - Vital Signs/Intake and Output Vital Signs (last 24 hours): Temp Pulse Resp BP Pulse Ox 97.6 F 75 20 146/78 97 06/10/18 15:38 06/10/18 15:38 06/10/18 15:38 06/10/18 15:38 06/10/18 15:38 Intake and Output: 06/10/18 06/10/18 06:59 18:59 Intake Total 200 Output Total 650 Balance -450 - Medications Medications: Current Medications Aspirin (Ecotrin) 81 mg PO DAILY [facility] Last Admin: 06/10/18 10:02 Dose: 81 mg Atorvastatin Calcium (Lipitor) 10 mg PO HS [facility] Last Admin: 06/09/18 21:10 Dose: 10 mg Bethanechol Chloride (Urecholine) 50 mg PO TID [facility] Last Admin: 06/10/18 12:52 Dose: 50 mg Carvedilol (Coreg) 12.5 mg PO BID [facility] Last Admin: 06/10/18 09:58 Dose: 12.5 mg Docusate Sodium (Colace) 100 mg PO DAILY PRN PRN Reason: Constipation Levetiracetam (Keppra) 500 mg PO BID [facility] Last Admin: 06/10/18 09:58 Dose: 500 mg Metformin HCl (Glucophage) 500 mg PO TID [facility] Last Admin: 06/10/18 12:52 Dose: 500 mg Nystatin (Nystatin Oral Susp) 5 ml PO QID [facility] Last Admin: 06/10/18 12:52 Dose: 5 ml Ondansetron HCl (Zofran Odt) 4 mg PO Q8H PRN PRN Reason: Nausea/Vomiting Pantoprazole Sodium (Protonix Ec Tab) 40 mg PO BID [facility] Last Admin: 06/10/18 10:02 Dose: 40 mg Tamsulosin HCl (Flomax) 0.8 mg PO DAILY [facility] Last Admin: 06/10/18 09:57 Dose: 0.8 mg - Labs Labs: 06/10/18 12:41 06/07/18 05:25 PT 12.6 Seconds (9.8-13.1) 06/02/18 19:07 INR 1.1 06/02/18 19:07 APTT 37.5 Seconds (25.6-37.1) H 06/02/18 19:07 - Respiratory Exam Respiratory Exam: NORMAL BREATHING PATTERN - Cardiovascular Exam Cardiovascular Exam: REGULAR RHYTHM - GI/Abdominal Exam GI & Abdominal Exam: Normal Bowel Sounds Assessment and Plan - Assessment and Plan (Free Text) Assessment: Urinary retention Lennon Flomax Urecholine Urology US Bladder Cystoscopy GI sx Fecal impaction? Anemia GI Bleed? 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
--- NOTE | 2018-06-10 21:17 | CP.PCM.PN ---
Subjective - Date & Time of Evaluation Date of Evaluation: 06/04/18 Time of Evaluation: 18:00 - Subjective Subjective: No complaints. Objective - Vital Signs/Intake and Output Vital Signs (last 24 hours): Temp Pulse Resp BP Pulse Ox 98.8 F 76 20 152/75 H 98 06/10/18 19:38 06/10/18 19:38 06/10/18 19:38 06/10/18 19:38 06/10/18 19:38 Intake and Output: 06/10/18 06/11/18 18:59 06:59 Intake Total 1000 Output Total 500 Balance 500 - Medications Medications: Current Medications Aspirin (Ecotrin) 81 mg PO DAILY [facility] Last Admin: 06/10/18 10:02 Dose: 81 mg Atorvastatin Calcium (Lipitor) 10 mg PO HS [facility] Last Admin: 06/09/18 21:10 Dose: 10 mg Bethanechol Chloride (Urecholine) 50 mg PO TID [facility] Last Admin: 06/10/18 17:19 Dose: 50 mg Carvedilol (Coreg) 12.5 mg PO BID [facility] Last Admin: 06/10/18 17:20 Dose: 12.5 mg Docusate Sodium (Colace) 100 mg PO DAILY PRN PRN Reason: Constipation Levetiracetam (Keppra) 500 mg PO BID [facility] Last Admin: 06/10/18 17:20 Dose: 500 mg Metformin HCl (Glucophage) 500 mg PO TID [facility] Last Admin: 06/10/18 17:20 Dose: 500 mg Nystatin (Nystatin Oral Susp) 5 ml PO QID [facility] Last Admin: 06/10/18 17:20 Dose: 5 ml Ondansetron HCl (Zofran Odt) 4 mg PO Q8H PRN PRN Reason: Nausea/Vomiting Pantoprazole Sodium (Protonix Ec Tab) 40 mg PO BID [facility] Last Admin: 06/10/18 17:23 Dose: 40 mg Tamsulosin HCl (Flomax) 0.8 mg PO DAILY [facility] Last Admin: 06/10/18 09:57 Dose: 0.8 mg - Labs Labs: 06/10/18 12:41 06/07/18 05:25 PT 12.6 Seconds (9.8-13.1) 06/02/18 19:07 INR 1.1 06/02/18 19:07 APTT 37.5 Seconds (25.6-37.1) H 06/02/18 19:07 - Head Exam Head Exam: ATRAUMATIC - Eye Exam Eye Exam: Normal appearance - ENT Exam ENT Exam: Mucous Membranes Dry - Respiratory Exam Respiratory Exam: NORMAL BREATHING PATTERN - Cardiovascular Exam Cardiovascular Exam: +S1, +S2 - GI/Abdominal Exam GI & Abdominal Exam: Normal Bowel Sounds Assessment and Plan (1) Anemia Assessment & Plan: iron deficiency anemia from GI blood loss s/p PRBC transfusion on IV iron GI w/u - s/p EGD; no active bleeding Status: Acute
--- NOTE | 2018-06-10 21:20 | CP.PCM.PN ---
Subjective - Date & Time of Evaluation Date of Evaluation: 06/09/18 Time of Evaluation: 20:00 - Subjective Subjective: No complaints. Objective - Vital Signs/Intake and Output Vital Signs (last 24 hours): Temp Pulse Resp BP Pulse Ox 98.8 F 76 20 152/75 H 98 06/10/18 19:38 06/10/18 19:38 06/10/18 19:38 06/10/18 19:38 06/10/18 19:38 Intake and Output: 06/10/18 06/11/18 18:59 06:59 Intake Total 1000 Output Total 500 Balance 500 - Medications Medications: Current Medications Aspirin (Ecotrin) 81 mg PO DAILY [facility] Last Admin: 06/10/18 10:02 Dose: 81 mg Atorvastatin Calcium (Lipitor) 10 mg PO HS [facility] Last Admin: 06/09/18 21:10 Dose: 10 mg Bethanechol Chloride (Urecholine) 50 mg PO TID [facility] Last Admin: 06/10/18 17:19 Dose: 50 mg Carvedilol (Coreg) 12.5 mg PO BID [facility] Last Admin: 06/10/18 17:20 Dose: 12.5 mg Docusate Sodium (Colace) 100 mg PO DAILY PRN PRN Reason: Constipation Levetiracetam (Keppra) 500 mg PO BID [facility] Last Admin: 06/10/18 17:20 Dose: 500 mg Metformin HCl (Glucophage) 500 mg PO TID [facility] Last Admin: 06/10/18 17:20 Dose: 500 mg Nystatin (Nystatin Oral Susp) 5 ml PO QID [facility] Last Admin: 06/10/18 17:20 Dose: 5 ml Ondansetron HCl (Zofran Odt) 4 mg PO Q8H PRN PRN Reason: Nausea/Vomiting Pantoprazole Sodium (Protonix Ec Tab) 40 mg PO BID [facility] Last Admin: 06/10/18 17:23 Dose: 40 mg Tamsulosin HCl (Flomax) 0.8 mg PO DAILY [facility] Last Admin: 06/10/18 09:57 Dose: 0.8 mg - Labs Labs: 06/10/18 12:41 06/07/18 05:25 PT 12.6 Seconds (9.8-13.1) 06/02/18 19:07 INR 1.1 06/02/18 19:07 APTT 37.5 Seconds (25.6-37.1) H 06/02/18 19:07 - Head Exam Head Exam: ATRAUMATIC - Eye Exam Eye Exam: Normal appearance - ENT Exam ENT Exam: Mucous Membranes Dry - Respiratory Exam Respiratory Exam: NORMAL BREATHING PATTERN - Cardiovascular Exam Cardiovascular Exam: +S1, +S2 - GI/Abdominal Exam GI & Abdominal Exam: Normal Bowel Sounds Assessment and Plan (1) Anemia Assessment & Plan: iron deficiency anemia; no active signs of blood loss okay to restart baby aspirin by GI s/p PRBC transfusion s/p IV iron Status: Acute
--- NOTE | 2018-06-10 21:22 | CP.PCM.PN ---
Subjective - Date & Time of Evaluation Date of Evaluation: 06/10/18 Time of Evaluation: 11:00 - Subjective Subjective: No complaints, comfortable Objective - Vital Signs/Intake and Output Vital Signs (last 24 hours): Temp Pulse Resp BP Pulse Ox 98.8 F 76 20 152/75 H 98 06/10/18 19:38 06/10/18 19:38 06/10/18 19:38 06/10/18 19:38 06/10/18 19:38 Intake and Output: 06/10/18 06/11/18 18:59 06:59 Intake Total 1000 Output Total 500 Balance 500 - Medications Medications: Current Medications Aspirin (Ecotrin) 81 mg PO DAILY [facility] Last Admin: 06/10/18 10:02 Dose: 81 mg Atorvastatin Calcium (Lipitor) 10 mg PO HS [facility] Last Admin: 06/10/18 21:19 Dose: 10 mg Bethanechol Chloride (Urecholine) 50 mg PO TID [facility] Last Admin: 06/10/18 17:19 Dose: 50 mg Carvedilol (Coreg) 12.5 mg PO BID [facility] Last Admin: 06/10/18 17:20 Dose: 12.5 mg Docusate Sodium (Colace) 100 mg PO DAILY PRN PRN Reason: Constipation Levetiracetam (Keppra) 500 mg PO BID [facility] Last Admin: 06/10/18 17:20 Dose: 500 mg Metformin HCl (Glucophage) 500 mg PO TID [facility] Last Admin: 06/10/18 17:20 Dose: 500 mg Nystatin (Nystatin Oral Susp) 5 ml PO QID [facility] Last Admin: 06/10/18 21:19 Dose: 5 ml Ondansetron HCl (Zofran Odt) 4 mg PO Q8H PRN PRN Reason: Nausea/Vomiting Pantoprazole Sodium (Protonix Ec Tab) 40 mg PO BID [facility] Last Admin: 06/10/18 17:23 Dose: 40 mg Tamsulosin HCl (Flomax) 0.8 mg PO DAILY [facility] Last Admin: 06/10/18 09:57 Dose: 0.8 mg - Labs Labs: 06/10/18 12:41 06/07/18 05:25 PT 12.6 Seconds (9.8-13.1) 06/02/18 19:07 INR 1.1 06/02/18 19:07 APTT 37.5 Seconds (25.6-37.1) H 06/02/18 19:07 - Head Exam Head Exam: ATRAUMATIC - Eye Exam Eye Exam: Normal appearance - ENT Exam ENT Exam: Mucous Membranes Dry - Respiratory Exam Respiratory Exam: NORMAL BREATHING PATTERN - Cardiovascular Exam Cardiovascular Exam: +S1, +S2 - GI/Abdominal Exam GI & Abdominal Exam: Normal Bowel Sounds Assessment and Plan (1) Anemia Assessment & Plan: iron deficiency anemia from suspected GI blood loss; EGD does not reveal active bleeding restarted on baby aspirin s/p PRBC transfusion s/p IV iron Status: Acute
--- NOTE | 2018-06-11 09:55 | US ---
Date of service: 06/08/2018 HISTORY: COMPARISON: None available. TECHNIQUE: Grayscale and color Doppler evaluation of the bladder and prostate FINDINGS: A Lennon catheter is present within the bladder. With the Lennon clamped, bladder volume measured 151.1 mL. When the Lennon was unclamped, the bladder emptied. The prostate measured 5.0 x 3.5 x 5.2 cm compatible with volume of 47.6 mL. IMPRESSION: Bladder and prostate volumes as described above.
[2018-06-11] MEDS: Nystatin 100,000 Units/ml Oral Susp 5 ml UD PO SCH ×4 (10:31→21:46)
[2018-06-11] MEDS: Bethanechol 50 MG TAB PO SCH ×3 (10:31→17:32)
[2018-06-11] MEDS: Pantoprazole 40 mg EC Tab PO SCH ×2 (10:32→17:33)
--- NOTE | 2018-06-11 16:34 | CP.PCM.PN ---
Subjective - Date & Time of Evaluation Date of Evaluation: 06/11/18 Time of Evaluation: 22:22 - Subjective Subjective: Above notede Objective - Vital Signs/Intake and Output Vital Signs (last 24 hours): Temp Pulse Resp BP Pulse Ox 97.9 F 73 18 148/70 98 06/11/18 12:21 06/11/18 12:21 06/11/18 12:21 06/11/18 12:21 06/11/18 12:21 - Medications Medications: Current Medications Aspirin (Ecotrin) 81 mg PO DAILY [facility] Last Admin: 06/11/18 10:33 Dose: 81 mg Atorvastatin Calcium (Lipitor) 10 mg PO HS [facility] Last Admin: 06/10/18 21:19 Dose: 10 mg Bethanechol Chloride (Urecholine) 50 mg PO TID [facility] Last Admin: 06/11/18 14:07 Dose: 50 mg Carvedilol (Coreg) 12.5 mg PO BID [facility] Last Admin: 06/11/18 10:31 Dose: 12.5 mg Docusate Sodium (Colace) 100 mg PO DAILY PRN PRN Reason: Constipation Levetiracetam (Keppra) 500 mg PO BID [facility] Last Admin: 06/11/18 10:31 Dose: 500 mg Metformin HCl (Glucophage) 500 mg PO TID [facility] Last Admin: 06/11/18 14:06 Dose: 500 mg Nystatin (Nystatin Oral Susp) 5 ml PO QID [facility] Last Admin: 06/11/18 14:07 Dose: 5 ml Ondansetron HCl (Zofran Odt) 4 mg PO Q8H PRN PRN Reason: Nausea/Vomiting Pantoprazole Sodium (Protonix Ec Tab) 40 mg PO BID [facility] Last Admin: 06/11/18 10:32 Dose: 40 mg Tamsulosin HCl (Flomax) 0.8 mg PO DAILY [facility] Last Admin: 06/11/18 10:30 Dose: 0.8 mg - Labs Labs: 06/10/18 12:41 06/07/18 05:25 PT 12.6 Seconds (9.8-13.1) 06/02/18 19:07 INR 1.1 06/02/18 19:07 APTT 37.5 Seconds (25.6-37.1) H 06/02/18 19:07 - Respiratory Exam Respiratory Exam: NORMAL BREATHING PATTERN - Cardiovascular Exam Cardiovascular Exam: REGULAR RHYTHM - GI/Abdominal Exam GI & Abdominal Exam: Normal Bowel Sounds Assessment and Plan - Assessment and Plan (Free Text) Assessment: Urinary retention Lennon Flomax Urecholine Urology US Bladder Cystoscopy GI sx Fecal impaction? Anemia GI Bleed? 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
[2018-06-11 16:53] VITALS: RESP 16
[2018-06-11 20:02] VITALS: BP 163/76; PULSE 69; TEMP 98.6; O2SAT 96
--- NOTE | 2018-06-25 10:27 | OP ---
PROCEDURE DATE: 06/09/2018 SURGEON: Kallie Stacy MD ANESTHESIOLOGIST: None ANESTHESIA: Local PREOPERATIVE DIAGNOSIS: Urine retention POSTOPERATIVE DIAGNOSIS: Same OPERATIVE FINDINGS: Minimally occlusive prostate PROCEDURE PERFORMED: Cystoscopy COMPLICATIONS: None DRAINS: FLUIDS GIVEN: PREPARATION AND PROCEDURE: The patient was placed on the Operating Room table in the dorsal lithotomy position. Intravenous sedation was given. The area of the groin was draped and prepped in a sterile manner. Using a #21 cystoscope the urethra was entered atraumatically. Once inside the bladder, I scanned the bladder completely for any unusual findings, did not observe any unusual lesions within the bladder wall itself. The urethra appeared to be quite hyperemic probably for the reason which the urinary cytology came back as a Grade I abnormal. No other findings were seen. The cystoscope was removed. POSTOPERATIVE CONDITION: The patient was taken from the Operating Room in good condition. Kallie Stacy MD [facility]
== END 2018-06-11 22:00 | DRG 378 ==
LOC: H.ER 18:20 → H.ERHOLD 22:44 → H.TEL 06-03 06:18
PROVIDERS: ADMIT Family Medicine Geriatric Medicine; ATTEND Family Medicine Geriatric Medicine
PROC: 30233N1 Transfusion of Nonautologous Red Blood Cells into Peripheral Vein, Percutaneous Approach (ICD-10-PCS; 2018-06-04)
PROC: 0DB68ZX Excision of Stomach, Via Natural or Artificial Opening Endoscopic, Diagnostic (ICD-10-PCS; 2018-06-05)
PROC: 0DB68ZX Excision of Stomach, Via Natural or Artificial Opening Endoscopic, Diagnostic (ICD-10-PCS; principal; 2018-06-05 12:00)
PROC: 0TJB8ZZ Inspection of Bladder, Via Natural or Artificial Opening Endoscopic (ICD-10-PCS; 2018-06-09)
DX: K92.2 Gastrointestinal hemorrhage, unspecified (principal); D62 Acute posthemorrhagic anemia; K56.7 Ileus, unspecified; Q43.8 Other specified congenital malformations of intestine; N13.30 Unspecified hydronephrosis; B37.0 Candidal stomatitis; I69.398 Other sequelae of cerebral infarction; K64.9 Unspecified hemorrhoids; E78.00 Pure hypercholesterolemia, unspecified; E86.0 Dehydration; K31.7 Polyp of stomach and duodenum; K56.41 Fecal impaction; K31.89 Other diseases of stomach and duodenum; E11.22 Type 2 diabetes mellitus with diabetic chronic kidney disease; I12.9 Hypertensive chronic kidney disease with stage 1 through stage 4 chronic kidney disease, or unspecified chronic kidney disease; G40.909 Epilepsy, unspecified, not intractable, without status epilepticus; E11.21 Type 2 diabetes mellitus with diabetic nephropathy; E78.5 Hyperlipidemia, unspecified; N32.0 Bladder-neck obstruction; N32.89 Other specified disorders of bladder; Z87.891 Personal history of nicotine dependence; N18.9 Chronic kidney disease, unspecified; D63.1 Anemia in chronic kidney disease; I69.328 Other speech and language deficits following cerebral infarction; E61.1 Iron deficiency; R33.8 Other retention of urine; I69.391 Dysphagia following cerebral infarction; R13.10 Dysphagia, unspecified; N31.9 Neuromuscular dysfunction of bladder, unspecified

== ENCOUNTER 2018-06-11 20:44 | Inpatient (IN) | payer MEDICARE ==
[2018-06-11 21:12] VITALS: BMI 23.3
[2018-06-12] MEDS: Nystatin 100,000 Units/ml Oral Susp 5 ml UD PO SCH ×4 (08:13→21:47)
[2018-06-12] MEDS: Pantoprazole 40 mg EC Tab PO SCH ×2 (08:17→17:48)
[2018-06-12] MEDS: Bethanechol 50 MG TAB PO SCH ×3 (10:00→17:46)
--- NOTE | 2018-06-12 11:18 | CP.PCM.CON ---
History of Present Illness - History of Present Illness History of Present Illness: GI Consult note for Dr. Villegas Consulted for: anemia, melena Patient is a 77M with PMH of CVA who was on plavix who was admitted to [facility] on for anemia and melena. On CT there was evidence of constipation, bladder distention, and concern for volvulus in the report, but per GI and General Surgery teams the suspicion for volvulus was low. On 06/04 patient's hgb dropped to 7.5 and he was tranfused 2 units of PRBC. Patient underwent and EGD on 06/05 which revealed gastritis, normal duodenum, and 2 gastric polyps which diagnosed as inflamed ulcerated hyperplastic polyps on pathology. There was no active bleeding encountered. Patient was put on stool softeners and had a dark liquid BM on 06/06, but has had no gross sign of blood in BM's since. Patient was started on low dose ASA and transferred to TCU last night. Patient denies any abdominal pain, nausea, vomiting, and is tolerating his diet. He had 3 pasty, light brown, foul smelling bowel movements overnight. PMH: CVA, ataxia, dysphagia, neurogenic bladder, DM, HTN, HLD, seizures, falls, anemia PSH: colonoscopy 03/14 aborted due to poor prep ALL: NKDA Social: prior smoker Review of Systems - Review of Systems All systems: reviewed and no additional remarkable complaints except (as per HPI ) Past Patient History - Past Medical History & Family History Past Medical History?: Yes - Past Social History Smoking Status: Former Smoker - CARDIAC Hx Hypercholesterolemia: Yes Hx Hypertension: Yes - PULMONARY Hx Respiratory Disorders: No - NEUROLOGICAL Hx Seizures: Yes - HEENT Hx HEENT Problems: No - RENAL Hx Chronic Kidney Disease: No - ENDOCRINE/METABOLIC Hx Diabetes Mellitus Type 2: Yes - HEMATOLOGICAL/ONCOLOGICAL Hx Anemia: Yes Hx Human Immunodeficiency Virus (HIV): No - INTEGUMENTARY Hx Dermatological Problems: No - MUSCULOSKELETAL/RHEUMATOLOGICAL Hx Musculoskeletal Disorders: Yes Hx Falls: Yes Hx Unsteady Gait: Yes - GASTROINTESTINAL Hx Gastrointestinal Disorders: No - GENITOURINARY/GYNECOLOGICAL Hx Genitourinary Disorders: No Hx Prostate Problems: Yes - PSYCHIATRIC Hx Psychophysiologic Disorder: No Hx Emotional Abuse: No Hx Physical Abuse: No Hx Substance Use: No - SURGICAL HISTORY Hx Surgeries: Yes - ANESTHESIA Hx Anesthesia: Yes Hx Anesthesia Reactions: No Hx Malignant Hyperthermia: No Meds Allergies/Adverse Reactions: Allergies Allergy/AdvReac Type Severity Reaction Status Date / Time No Known Allergies Allergy Verified 06/02/18 18:28 - Medications Medications: Current Medications Aspirin (Ecotrin) 81 mg PO DAILY [facility] Last Admin: 06/12/18 08:13 Dose: 81 mg Atorvastatin Calcium (Lipitor) 10 mg PO [facility] Bethanechol Chloride (Urecholine) 50 mg PO TID [facility] Last Admin: 06/12/18 10:00 Dose: 50 mg Carvedilol (Coreg) 12.5 mg PO BID [facility] Last Admin: 06/12/18 08:12 Dose: 12.5 mg Docusate Sodium (Colace) 100 mg PO DAILY PRN PRN Reason: Constipation Levetiracetam (Keppra) 500 mg PO BID [facility] Last Admin: 06/12/18 08:13 Dose: 500 mg Metformin HCl (Glucophage) 500 mg PO TID [facility] Last Admin: 06/12/18 08:13 Dose: 500 mg Nystatin (Nystatin Oral Susp) 5 ml PO QID [facility] Last Admin: 06/12/18 08:13 Dose: 5 ml Ondansetron HCl (Zofran Odt) 4 mg PO Q8H PRN PRN Reason: Nausea/Vomiting Pantoprazole Sodium (Protonix Ec Tab) 40 mg PO BID [facility] Last Admin: 06/12/18 08:17 Dose: 40 mg Tamsulosin HCl (Flomax) 0.8 mg PO DAILY [facility] Last Admin: 06/12/18 08:13 Dose: 0.8 mg Physical Exam - Constitutional Appears: Well, Non-toxic, No Acute Distress - Head Exam Head Exam: ATRAUMATIC, NORMOCEPHALIC - Eye Exam Eye Exam: Normal appearance. absent: Conjunctival injection, Scleral icterus - ENT Exam ENT Exam: Mucous Membranes Moist, Normal Oropharynx - Respiratory Exam Respiratory Exam: NORMAL BREATHING PATTERN. absent: Accessory Muscle Use, Respiratory Distress - Cardiovascular Exam Cardiovascular Exam: RRR - GI/Abdominal Exam GI & Abdominal Exam: Hypoactive Bowel Sounds, Soft. absent: Distended, Rebound , Tenderness - Extremities Exam Extremities exam: Positive for: pedal pulses present. Negative for: calf tenderness, pedal edema - Neurological Exam Neurological exam: Alert, Oriented x3 - Psychiatric Exam Psychiatric exam: Normal Affect, Normal Mood - Skin Skin Exam: Dry, Normal Color, Warm Results - Vital Signs Recent Vital Signs: Last Vital Signs Temp 97.1 F L 06/12/18 08:04 Pulse 78 06/12/18 08:12 Resp 20 06/12/18 08:04 BP 139/65 06/12/18 08:12 Pulse Ox 94 L 06/12/18 08:04 - Labs Labs: Laboratory Results - last 24 hr 06/12/18 06/12/18 05:12 10:41 POC Glucose (mg/dL) 113 H 116 H Assessment & Plan (1) GI bleed Status: Resolved (2) Anemia Status: Chronic (3) Constipation Status: Resolved - Assessment and Plan (Free Text) Assessment: 77M admitted for melena, now resolved Plan: No indication for further endoscopy or intervention at this time Patient with foul smelling but formed and normal colored stools, will consider stool C. diff Continue current diet Continue low dose ASA at this time--recommend only single agent antiplatelet regimen Discussed with Dr. Villegas, who agrees with above Kate Sierra, pgy2
--- NOTE | 2018-06-12 20:12 | CP.PCM.HP ---
History of Present Illness - History of Present Illness History of Present Illness: 77 yo admitted for deconditioning Present on Admission - Present on Admission Any Indicators Present on Admission: No Past Patient History - Past Medical History & Family History Past Medical History?: Yes - Past Social History Smoking Status: Former Smoker - CARDIAC Hx Hypercholesterolemia: Yes Hx Hypertension: Yes - PULMONARY Hx Respiratory Disorders: No - NEUROLOGICAL Hx Seizures: Yes - HEENT Hx HEENT Problems: No - RENAL Hx Chronic Kidney Disease: No - ENDOCRINE/METABOLIC Hx Diabetes Mellitus Type 2: Yes - HEMATOLOGICAL/ONCOLOGICAL Hx Anemia: Yes Hx Human Immunodeficiency Virus (HIV): No - INTEGUMENTARY Hx Dermatological Problems: No - MUSCULOSKELETAL/RHEUMATOLOGICAL Hx Musculoskeletal Disorders: Yes Hx Falls: Yes Hx Unsteady Gait: Yes - GASTROINTESTINAL Hx Gastrointestinal Disorders: No - GENITOURINARY/GYNECOLOGICAL Hx Genitourinary Disorders: No Hx Prostate Problems: Yes - PSYCHIATRIC Hx Psychophysiologic Disorder: No Hx Emotional Abuse: No Hx Physical Abuse: No Hx Substance Use: No - SURGICAL HISTORY Hx Surgeries: Yes - ANESTHESIA Hx Anesthesia: Yes Hx Anesthesia Reactions: No Hx Malignant Hyperthermia: No Meds Allergies/Adverse Reactions: Allergies Allergy/AdvReac Type Severity Reaction Status Date / Time No Known Allergies Allergy Verified 06/02/18 18:28 Physical Exam - Respiratory Exam Respiratory Exam: NORMAL BREATHING PATTERN - Cardiovascular Exam Cardiovascular Exam: REGULAR RHYTHM - GI/Abdominal Exam GI & Abdominal Exam: Normal Bowel Sounds Results - Vital Signs Recent Vital Signs: Last Vital Signs Temp 98.2 F 06/12/18 15:38 Pulse 70 06/12/18 17:45 Resp 20 06/12/18 15:38 BP 119/59 L 06/12/18 17:45 Pulse Ox 98 06/12/18 15:44 - Labs Labs: Laboratory Results - last 24 hr 06/12/18 06/12/18 06/12/18 05:12 10:41 16:14 POC Glucose (mg/dL) 113 H 116 H 119 H Assessment & Plan - Assessment and Plan (Free Text) Assessment: Decondioning PT Urinary retention Flomax Urecholine Urology US Bladder Cystoscopy GI sx Fecal impaction? Anemia GI Bleed? 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
[2018-06-13] MEDS: Nystatin 100,000 Units/ml Oral Susp 5 ml UD PO SCH ×4 (08:53→21:33)
[2018-06-13] MEDS: Pantoprazole 40 mg EC Tab PO SCH ×2 (08:53→18:12)
[2018-06-13] MEDS: Bethanechol 50 MG TAB PO SCH ×3 (08:53→18:12)
--- NOTE | 2018-06-13 12:21 | CP.PCM.PN ---
Subjective - Date & Time of Evaluation Date of Evaluation: 06/13/18 Time of Evaluation: 09:20 - Subjective Subjective: GI progress note for Dr. Villegas Patient seen and examined this AM. Patient had a large foul smelling diarrhea since yesterday. Patient denies any abdominal pain, nausea, vomiting, or fevers and is able to tolerate diet Objective - Vital Signs/Intake and Output Vital Signs (last 24 hours): Temp Pulse Resp BP Pulse Ox 98.1 F 67 20 133/59 L 98 06/13/18 08:25 06/13/18 08:52 06/13/18 08:25 06/13/18 08:52 06/13/18 08:25 Intake and Output: 06/13/18 06/13/18 06:59 18:59 Intake Total 250 Output Total 600 Balance -350 - Medications Medications: Current Medications Aspirin (Ecotrin) 81 mg PO DAILY [facility] Last Admin: 06/13/18 08:53 Dose: 81 mg Atorvastatin Calcium (Lipitor) 10 mg PO HS [facility] Last Admin: 06/12/18 21:47 Dose: 10 mg Bethanechol Chloride (Urecholine) 50 mg PO TID [facility] Last Admin: 06/13/18 08:53 Dose: 50 mg Carvedilol (Coreg) 12.5 mg PO BID [facility] Last Admin: 06/13/18 08:52 Dose: 12.5 mg Cholestyramine Resin (Questran) 4 gm PO DAILY [facility] Docusate Sodium (Colace) 100 mg PO DAILY PRN PRN Reason: Constipation Levetiracetam (Keppra) 500 mg PO BID [facility] Last Admin: 06/13/18 08:53 Dose: 500 mg Metformin HCl (Glucophage) 500 mg PO TID [facility] Last Admin: 06/13/18 08:53 Dose: 500 mg Nystatin (Nystatin Oral Susp) 5 ml PO QID [facility] Last Admin: 06/13/18 08:53 Dose: 5 ml Ondansetron HCl (Zofran Odt) 4 mg PO Q8H PRN PRN Reason: Nausea/Vomiting Pantoprazole Sodium (Protonix Ec Tab) 40 mg PO BID [facility] Last Admin: 06/13/18 08:53 Dose: 40 mg Tamsulosin HCl (Flomax) 0.8 mg PO DAILY [facility] Last Admin: 06/13/18 08:53 Dose: 0.8 mg - Constitutional Appears: Well, Non-toxic, No Acute Distress - Head Exam Head Exam: ATRAUMATIC, NORMOCEPHALIC - Eye Exam Eye Exam: Normal appearance. absent: Conjunctival injection, Scleral icterus - ENT Exam ENT Exam: Mucous Membranes Moist, Normal Oropharynx - Respiratory Exam Respiratory Exam: Respiratory Distress, NORMAL BREATHING PATTERN. absent: Accessory Muscle Use - Cardiovascular Exam Cardiovascular Exam: RRR - GI/Abdominal Exam GI & Abdominal Exam: Distended (mild), Soft. absent: Tenderness - Neurological Exam Neurological Exam: Alert, Awake, Oriented x3 - Psychiatric Exam Psychiatric exam: Normal Affect, Normal Mood - Skin Skin Exam: Dry, Normal Color, Warm Assessment and Plan (1) GI bleed Status: Resolved (2) Anemia Status: Chronic (3) Constipation Status: Resolved (4) Diarrhea Status: Acute - Assessment and Plan (Free Text) Assessment: 77M with GI bleed--now resolved, and foul smelling diarrhea Plan: Continue current diet Add cholestyramine for diarrhea Persistent foul smelling stool: will follow up stool c. diff, ovum and parasite , culture, calprotectin, and fat levels discussed with Dr. Villegas, who agrees with above
[2018-06-13] MEDS: Cholestyramine 4 gm/Pkt UD PO SCH (13:04)
--- NOTE | 2018-06-13 17:11 | CP.PCM.PN ---
Subjective - Date & Time of Evaluation Date of Evaluation: 06/13/18 Time of Evaluation: 22:22 - Subjective Subjective: foul smelling bowel movements Objective - Vital Signs/Intake and Output Vital Signs (last 24 hours): Temp Pulse Resp BP Pulse Ox 97.7 F 65 20 126/66 97 06/13/18 15:32 06/13/18 15:32 06/13/18 15:32 06/13/18 15:32 06/13/18 15:32 Intake and Output: 06/13/18 06/13/18 06:59 18:59 Intake Total 250 Output Total 600 Balance -350 - Medications Medications: Current Medications Aspirin (Ecotrin) 81 mg PO DAILY [facility] Last Admin: 06/13/18 08:53 Dose: 81 mg Atorvastatin Calcium (Lipitor) 10 mg PO HS [facility] Last Admin: 06/12/18 21:47 Dose: 10 mg Bethanechol Chloride (Urecholine) 50 mg PO TID [facility] Last Admin: 06/13/18 13:05 Dose: 50 mg Carvedilol (Coreg) 12.5 mg PO BID [facility] Last Admin: 06/13/18 08:52 Dose: 12.5 mg Cholestyramine Resin (Questran) 4 gm PO DAILY [facility] Last Admin: 06/13/18 13:04 Dose: 4 gm Docusate Sodium (Colace) 100 mg PO DAILY PRN PRN Reason: Constipation Levetiracetam (Keppra) 500 mg PO BID [facility] Last Admin: 06/13/18 08:53 Dose: 500 mg Metformin HCl (Glucophage) 500 mg PO TID [facility] Last Admin: 06/13/18 13:04 Dose: 500 mg Nystatin (Nystatin Oral Susp) 5 ml PO QID [facility] Last Admin: 06/13/18 13:05 Dose: 5 ml Ondansetron HCl (Zofran Odt) 4 mg PO Q8H PRN PRN Reason: Nausea/Vomiting Pantoprazole Sodium (Protonix Ec Tab) 40 mg PO BID [facility] Last Admin: 06/13/18 08:53 Dose: 40 mg Tamsulosin HCl (Flomax) 0.8 mg PO DAILY [facility] Last Admin: 06/13/18 08:53 Dose: 0.8 mg - Respiratory Exam Respiratory Exam: NORMAL BREATHING PATTERN - Cardiovascular Exam Cardiovascular Exam: REGULAR RHYTHM - GI/Abdominal Exam GI & Abdominal Exam: Normal Bowel Sounds Assessment and Plan - Assessment and Plan (Free Text) Assessment: Decondioning PT GI sx Diarrhea Fecal impaction? Anemia GI Bleed? 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
--- NOTE | 2018-06-13 20:22 | CP.PCM.CON ---
History of Present Illness - History of Present Illness History of Present Illness: 77 year old male with a history of DM, CVA, seizure disorder, anemia (iron deficiency/anemia of CKD) admitted to TCU. The patient recently received 2U PRBC during his hospitalization. His iron stores were ow and he was treated with Venofer. He underwent an EGD with no evidence of active bleeding. He currently reports to feeling well. His aspirin has been restarted with no dark bowel movements. Past medical history: DM, CVA, seizures, anemia Past surgical history: None Family history: Denies hematologic and oncologic problems Social history: Former tobacco Allergies: NKA Review of systems: All remaining review of systems including HEENT, cardiovascular, respiratory, gastrointestinal, genitourinary, musculoskeletal, dermatologic, neurologic, and psychiatric are negative unless mentioned in the HPI. Past Patient History - Past Medical History & Family History Past Medical History?: Yes - Past Social History Smoking Status: Former Smoker - CARDIAC Hx Hypercholesterolemia: Yes Hx Hypertension: Yes - PULMONARY Hx Respiratory Disorders: No - NEUROLOGICAL Hx Seizures: Yes - HEENT Hx HEENT Problems: No - RENAL Hx Chronic Kidney Disease: No - ENDOCRINE/METABOLIC Hx Diabetes Mellitus Type 2: Yes - HEMATOLOGICAL/ONCOLOGICAL Hx Anemia: Yes Hx Human Immunodeficiency Virus (HIV): No - INTEGUMENTARY Hx Dermatological Problems: No - MUSCULOSKELETAL/RHEUMATOLOGICAL Hx Musculoskeletal Disorders: Yes Hx Falls: Yes Hx Unsteady Gait: Yes - GASTROINTESTINAL Hx Gastrointestinal Disorders: No - GENITOURINARY/GYNECOLOGICAL Hx Genitourinary Disorders: No Hx Prostate Problems: Yes - PSYCHIATRIC Hx Psychophysiologic Disorder: No Hx Emotional Abuse: No Hx Physical Abuse: No Hx Substance Use: No - SURGICAL HISTORY Hx Surgeries: Yes - ANESTHESIA Hx Anesthesia: Yes Hx Anesthesia Reactions: No Hx Malignant Hyperthermia: No Meds Allergies/Adverse Reactions: Allergies Allergy/AdvReac Type Severity Reaction Status Date / Time No Known Allergies Allergy Verified 06/02/18 18:28 - Medications Medications: Current Medications Aspirin (Ecotrin) 81 mg PO DAILY [facility] Last Admin: 06/13/18 08:53 Dose: 81 mg Atorvastatin Calcium (Lipitor) 10 mg PO HS [facility] Last Admin: 06/12/18 21:47 Dose: 10 mg Bethanechol Chloride (Urecholine) 50 mg PO TID [facility] Last Admin: 06/13/18 18:12 Dose: 50 mg Carvedilol (Coreg) 12.5 mg PO BID [facility] Last Admin: 06/13/18 18:11 Dose: 12.5 mg Cholestyramine Resin (Questran) 4 gm PO DAILY [facility] Last Admin: 06/13/18 13:04 Dose: 4 gm Docusate Sodium (Colace) 100 mg PO DAILY PRN PRN Reason: Constipation Levetiracetam (Keppra) 500 mg PO BID [facility] Last Admin: 06/13/18 18:11 Dose: 500 mg Metformin HCl (Glucophage) 500 mg PO TID [facility] Last Admin: 06/13/18 18:11 Dose: 500 mg Nystatin (Nystatin Oral Susp) 5 ml PO QID [facility] Last Admin: 06/13/18 18:12 Dose: 5 ml Ondansetron HCl (Zofran Odt) 4 mg PO Q8H PRN PRN Reason: Nausea/Vomiting Pantoprazole Sodium (Protonix Ec Tab) 40 mg PO BID [facility] Last Admin: 06/13/18 18:12 Dose: 40 mg Tamsulosin HCl (Flomax) 0.8 mg PO DAILY [facility] Last Admin: 06/13/18 08:53 Dose: 0.8 mg Physical Exam - Head Exam Head Exam: ATRAUMATIC - Eye Exam Eye Exam: Normal appearance - ENT Exam ENT Exam: Mucous Membranes Dry - Respiratory Exam Respiratory Exam: NORMAL BREATHING PATTERN - Cardiovascular Exam Cardiovascular Exam: +S1, +S2 - GI/Abdominal Exam GI & Abdominal Exam: Normal Bowel Sounds Results - Vital Signs Recent Vital Signs: Last Vital Signs Temp 98.1 F 06/13/18 19:41 Pulse 66 06/13/18 19:41 Resp 20 06/13/18 19:41 BP 112/56 L 06/13/18 19:41 Pulse Ox 96 06/13/18 19:41 - Labs Labs: Laboratory Results - last 24 hr 06/12/18 06/13/18 06/13/18 20:45 05:55 08:13 POC Glucose (mg/dL) 99 83 C. difficile Ag & Toxin Negative 06/13/18 06/13/18 11:36 15:59 POC Glucose (mg/dL) 106 119 H C. difficile Ag & Toxin Assessment & Plan (1) Anemia Assessment and Plan: iron deficiency anemia; s/p PRBC transfusion and IV Venofer recent EGD negative for active bleeding anemia of CKD; will consider Procrit if H/H declines Thank you for this interesting consult. Status: Chronic
[2018-06-14 07:19] LABS: BASO # 0.1 K/uL (0.0-0.2); BASO % 0.8 % (0.0-2.0); EOS # 0.3 K/uL (0.0-0.7); EOS % 3.5 % (0.0-4.0); HEMOGLOBIN 8.8 g/dL (12.0-18.0); LYMPH # 1.7 K/uL (1.0-4.3); LYMPH % 19.1 % (20.0-40.0); MEAN CELL VOLUME 89.4 fl (80.0-94.0); MEAN CORPUSCULAR HEMOGLOBIN 30.4 pg (27.0-31.0); MEAN PLATELET VOLUME 7.7 fl (7.2-11.7); MONO # 0.7 K/uL (0.0-0.8); MONO % 7.5 % (0.0-10.0); NEUT # 6.3 K/uL (1.8-7.0); NEUT % 69.1 % (50.0-75.0); RBC 2.89 Mil/uL (4.40-5.90); RED CELL DISTRIBUTION WIDTH 16.4 % (11.5-14.5); WHITE BLOOD COUNT 9.1 K/uL (4.8-10.8)
[2018-06-14 07:43] LABS: ALB/GLOB RATIO 0.9 (1.0-2.1); ALBUMIN 2.8 g/dL (3.5-5.0); ALT/SGPT 21 U/L (21-72); AST/SGOT 28 U/L (17-59); BLOOD UREA NITROGEN 23 mg/dl (9-20); CALCIUM 8.4 mg/dL (8.4-10.2); GFR NON-AFRICAN AMERICAN 59
--- NOTE | 2018-06-14 08:03 | CP.PCM.PN ---
Subjective - Date & Time of Evaluation Date of Evaluation: 06/14/18 Time of Evaluation: 22:22 - Subjective Subjective: Above noted Objective - Vital Signs/Intake and Output Vital Signs (last 24 hours): Temp Pulse Resp BP Pulse Ox 98.1 F 66 20 112/56 L 96 06/13/18 19:41 06/13/18 19:41 06/13/18 19:41 06/13/18 19:41 06/13/18 19:41 Intake and Output: 06/14/18 06/14/18 06:59 18:59 Intake Total 300 Output Total 500 Balance -200 - Medications Medications: Current Medications Aspirin (Ecotrin) 81 mg PO DAILY [facility] Last Admin: 06/13/18 08:53 Dose: 81 mg Atorvastatin Calcium (Lipitor) 10 mg PO HS [facility] Last Admin: 06/13/18 21:33 Dose: 10 mg Bethanechol Chloride (Urecholine) 50 mg PO TID [facility] Last Admin: 06/13/18 18:12 Dose: 50 mg Carvedilol (Coreg) 12.5 mg PO BID [facility] Last Admin: 06/13/18 18:11 Dose: 12.5 mg Cholestyramine Resin (Questran) 4 gm PO DAILY [facility] Last Admin: 06/13/18 13:04 Dose: 4 gm Docusate Sodium (Colace) 100 mg PO DAILY PRN PRN Reason: Constipation Levetiracetam (Keppra) 500 mg PO BID [facility] Last Admin: 06/13/18 18:11 Dose: 500 mg Metformin HCl (Glucophage) 500 mg PO TID [facility] Last Admin: 06/13/18 18:11 Dose: 500 mg Nystatin (Nystatin Oral Susp) 5 ml PO QID [facility] Last Admin: 06/13/18 21:33 Dose: 5 ml Ondansetron HCl (Zofran Odt) 4 mg PO Q8H PRN PRN Reason: Nausea/Vomiting Pantoprazole Sodium (Protonix Ec Tab) 40 mg PO BID [facility] Last Admin: 06/13/18 18:12 Dose: 40 mg Tamsulosin HCl (Flomax) 0.8 mg PO DAILY [facility] Last Admin: 06/13/18 08:53 Dose: 0.8 mg - Labs Labs: 06/14/18 05:30 06/14/18 05:30 - Respiratory Exam Respiratory Exam: NORMAL BREATHING PATTERN - Cardiovascular Exam Cardiovascular Exam: REGULAR RHYTHM - GI/Abdominal Exam GI & Abdominal Exam: Normal Bowel Sounds Assessment and Plan - Assessment and Plan (Free Text) Assessment: Decondioning PT GI sx Diarrhea Fecal impaction? GI cultures ordered EGD Gastric polyps (Outpt Colonoscopy) Anemia GI Bleed? 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
[2018-06-14] MEDS: Nystatin 100,000 Units/ml Oral Susp 5 ml UD PO SCH ×4 (08:09→21:35)
[2018-06-14] MEDS: Pantoprazole 40 mg EC Tab PO SCH ×2 (08:09→17:06)
[2018-06-14] MEDS: Bethanechol 50 MG TAB PO SCH ×3 (08:09→17:06)
[2018-06-14] MEDS: Cholestyramine 4 gm/Pkt UD PO SCH (08:09)
--- NOTE | 2018-06-14 21:31 | CP.PCM.PN ---
Subjective - Date & Time of Evaluation Date of Evaluation: 06/14/18 Time of Evaluation: 15:30 - Subjective Subjective: Has some stomach pain, foul smelling stool Objective - Vital Signs/Intake and Output Vital Signs (last 24 hours): Temp Pulse Resp BP Pulse Ox 97.7 F 63 20 134/61 96 06/14/18 20:43 06/14/18 20:43 06/14/18 20:43 06/14/18 20:43 06/14/18 20:43 Intake and Output: 06/14/18 06/15/18 18:59 06:59 Intake Total 300 Output Total 500 Balance -200 - Medications Medications: Current Medications Aspirin (Ecotrin) 81 mg PO DAILY [facility] Last Admin: 06/14/18 08:09 Dose: 81 mg Atorvastatin Calcium (Lipitor) 10 mg PO HS [facility] Last Admin: 06/13/18 21:33 Dose: 10 mg Bethanechol Chloride (Urecholine) 50 mg PO TID [facility] Last Admin: 06/14/18 17:06 Dose: 50 mg Carvedilol (Coreg) 12.5 mg PO BID [facility] Last Admin: 06/14/18 17:07 Dose: 12.5 mg Cholestyramine Resin (Questran) 4 gm PO DAILY [facility] Last Admin: 06/14/18 08:09 Dose: 4 gm Docusate Sodium (Colace) 100 mg PO DAILY PRN PRN Reason: Constipation Levetiracetam (Keppra) 500 mg PO BID [facility] Last Admin: 06/14/18 17:06 Dose: 500 mg Metformin HCl (Glucophage) 500 mg PO TID [facility] Last Admin: 06/14/18 17:06 Dose: 500 mg Nystatin (Nystatin Oral Susp) 5 ml PO QID [facility] Last Admin: 06/14/18 17:06 Dose: 5 ml Ondansetron HCl (Zofran Odt) 4 mg PO Q8H PRN PRN Reason: Nausea/Vomiting Pantoprazole Sodium (Protonix Ec Tab) 40 mg PO BID [facility] Last Admin: 06/14/18 17:06 Dose: 40 mg Tamsulosin HCl (Flomax) 0.8 mg PO DAILY [facility] Last Admin: 06/14/18 08:09 Dose: 0.8 mg - Labs Labs: 06/14/18 05:30 06/14/18 05:30 - Head Exam Head Exam: ATRAUMATIC - Eye Exam Eye Exam: Normal appearance - ENT Exam ENT Exam: Mucous Membranes Dry - Respiratory Exam Respiratory Exam: NORMAL BREATHING PATTERN - Cardiovascular Exam Cardiovascular Exam: +S1, +S2 - GI/Abdominal Exam GI & Abdominal Exam: Normal Bowel Sounds Assessment and Plan (1) Anemia Assessment & Plan: H/H declining iron deficiency anemia; s/p PRBC transfusion and IV Venofer recent EGD negative for active bleeding anemia of CKD; will give Procrit as H/H declining Status: Chronic
[2018-06-14] MEDS ORDERED: Potassium Chloride 20 mEq ER Tab PO ONE (21:51)
[2018-06-15 07:09] LABS: HEMOGLOBIN 8.8 g/dL (12.0-18.0); MEAN CORPUSCULAR HEMOGLOBIN 31.3 pg (27.0-31.0); MEAN CORPUSCULAR HGB CONC 35.2 g/dL (33.0-37.0); RBC 2.79 Mil/uL (4.40-5.90); RED CELL DISTRIBUTION WIDTH 16.4 % (11.5-14.5); WHITE BLOOD COUNT 8.2 K/uL (4.8-10.8)
[2018-06-15 07:19] LABS: BLOOD UREA NITROGEN 24 mg/dl (9-20); CALCIUM 8.4 mg/dL (8.4-10.2); GFR NON-AFRICAN AMERICAN 59
[2018-06-15] MEDS: Bethanechol 50 MG TAB PO SCH ×3 (08:28→18:01)
[2018-06-15] MEDS: Nystatin 100,000 Units/ml Oral Susp 5 ml UD PO SCH ×4 (08:28→22:04)
[2018-06-15] MEDS: Cholestyramine 4 gm/Pkt UD PO SCH (08:28)
[2018-06-15] MEDS: Pantoprazole 40 mg EC Tab PO SCH ×2 (08:31→18:03)
[2018-06-15] MEDS ORDERED: EPOETIN ALFA 10,000 UNIT/ML ML SC ONE (10:00)
--- NOTE | 2018-06-15 17:22 | CP.PCM.PN ---
Subjective - Date & Time of Evaluation Date of Evaluation: 06/15/18 Time of Evaluation: 22:22 - Subjective Subjective: Above noted Objective - Vital Signs/Intake and Output Vital Signs (last 24 hours): Temp Pulse Resp BP Pulse Ox 97.9 F 67 20 134/70 100 06/15/18 17:20 06/15/18 17:20 06/15/18 17:20 06/15/18 17:20 06/15/18 17:20 - Medications Medications: Current Medications Aspirin (Ecotrin) 81 mg PO DAILY [facility] Last Admin: 06/15/18 08:27 Dose: 81 mg Atorvastatin Calcium (Lipitor) 10 mg PO HS [facility] Last Admin: 06/14/18 21:35 Dose: 10 mg Bethanechol Chloride (Urecholine) 50 mg PO TID [facility] Last Admin: 06/15/18 13:46 Dose: 50 mg Carvedilol (Coreg) 12.5 mg PO BID [facility] Last Admin: 06/15/18 08:27 Dose: 12.5 mg Cholestyramine Resin (Questran) 4 gm PO DAILY [facility] Last Admin: 06/15/18 08:28 Dose: 4 gm Docusate Sodium (Colace) 100 mg PO DAILY PRN PRN Reason: Constipation Levetiracetam (Keppra) 500 mg PO BID [facility] Last Admin: 06/15/18 08:28 Dose: 500 mg Metformin HCl (Glucophage) 500 mg PO TID [facility] Last Admin: 06/15/18 13:46 Dose: 500 mg Nystatin (Nystatin Oral Susp) 5 ml PO QID [facility] Last Admin: 06/15/18 13:46 Dose: 5 ml Ondansetron HCl (Zofran Odt) 4 mg PO Q8H PRN PRN Reason: Nausea/Vomiting Pantoprazole Sodium (Protonix Ec Tab) 40 mg PO BID [facility] Last Admin: 06/15/18 08:31 Dose: 40 mg Tamsulosin HCl (Flomax) 0.8 mg PO DAILY [facility] Last Admin: 06/15/18 08:27 Dose: 0.8 mg - Labs Labs: 06/15/18 05:30 06/15/18 05:30 - Respiratory Exam Respiratory Exam: NORMAL BREATHING PATTERN - Cardiovascular Exam Cardiovascular Exam: REGULAR RHYTHM - GI/Abdominal Exam GI & Abdominal Exam: Normal Bowel Sounds Assessment and Plan - Assessment and Plan (Free Text) Assessment: Decondioning PT Diarrhea Fecal impaction? cultures ordered EGD Gastric polyps (Outpt Colonoscopy) Anemia GI Bleed? 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
--- NOTE | 2018-06-15 20:43 | CP.PCM.PN ---
Subjective - Date & Time of Evaluation Date of Evaluation: 06/15/18 Time of Evaluation: 20:41 - Subjective Subjective: Patient doing better Stools less frequent though still pasty. Objective - Vital Signs/Intake and Output Vital Signs (last 24 hours): Temp Pulse Resp BP Pulse Ox 97.9 F 67 20 134/70 100 06/15/18 17:20 06/15/18 18:00 06/15/18 17:20 06/15/18 18:00 06/15/18 17:20 Intake and Output: 06/15/18 06/16/18 18:59 06:59 Output Total 650 Balance -650 - Medications Medications: Current Medications Aspirin (Ecotrin) 81 mg PO DAILY [facility] Last Admin: 06/15/18 08:27 Dose: 81 mg Atorvastatin Calcium (Lipitor) 10 mg PO HS [facility] Last Admin: 06/14/18 21:35 Dose: 10 mg Bethanechol Chloride (Urecholine) 50 mg PO TID [facility] Last Admin: 06/15/18 18:01 Dose: 50 mg Carvedilol (Coreg) 12.5 mg PO BID [facility] Last Admin: 06/15/18 18:00 Dose: 12.5 mg Cholestyramine Resin (Questran) 4 gm PO DAILY [facility] Last Admin: 06/15/18 08:28 Dose: 4 gm Docusate Sodium (Colace) 100 mg PO DAILY PRN PRN Reason: Constipation Levetiracetam (Keppra) 500 mg PO BID [facility] Last Admin: 06/15/18 18:01 Dose: 500 mg Metformin HCl (Glucophage) 500 mg PO TID [facility] Last Admin: 06/15/18 18:00 Dose: 500 mg Nystatin (Nystatin Oral Susp) 5 ml PO QID [facility] Last Admin: 06/15/18 18:01 Dose: 5 ml Ondansetron HCl (Zofran Odt) 4 mg PO Q8H PRN PRN Reason: Nausea/Vomiting Pantoprazole Sodium (Protonix Ec Tab) 40 mg PO BID [facility] Last Admin: 06/15/18 18:03 Dose: 40 mg Tamsulosin HCl (Flomax) 0.8 mg PO DAILY [facility] Last Admin: 06/15/18 08:27 Dose: 0.8 mg - Labs Labs: 06/15/18 05:30 06/15/18 05:30 - Head Exam Head Exam: NORMAL INSPECTION - Respiratory Exam Respiratory Exam: Clear to Ausculation Bilateral - GI/Abdominal Exam GI & Abdominal Exam: Soft. absent: Tenderness Assessment and Plan (1) Diarrhea Assessment & Plan: C diff and cultures negative. Stool frequency has iimproved on cholestyramine. Status: Acute
[2018-06-15] MEDS ORDERED: guaiFENesin 100 mg/5 ml Syrup UD PO ONE (23:46)
[2018-06-16] MEDS: Nystatin 100,000 Units/ml Oral Susp 5 ml UD PO SCH ×4 (08:41→21:49)
[2018-06-16] MEDS: Bethanechol 50 MG TAB PO SCH ×3 (08:42→16:46)
[2018-06-16] MEDS: Pantoprazole 40 mg EC Tab PO SCH ×2 (08:42→16:46)
[2018-06-16] MEDS: Cholestyramine 4 gm/Pkt UD PO SCH (08:42)
--- NOTE | 2018-06-16 14:36 | CP.PCM.PN ---
Subjective - Date & Time of Evaluation Date of Evaluation: 06/16/18 Time of Evaluation: 14:00 - Subjective Subjective: GI progress note with Dr. Villegas Patient seen and examined at bedside this AM. No adverse events overnight. Patient has been having pasty, normal consistency stools, no further diarrhea, and is tolerating his diet. Denies any pain. Objective - Vital Signs/Intake and Output Vital Signs (last 24 hours): Temp Pulse Resp BP Pulse Ox 97.9 F 76 20 148/67 99 06/16/18 08:27 06/16/18 08:41 06/16/18 08:27 06/16/18 08:41 06/16/18 08:27 - Medications Medications: Current Medications Aspirin (Ecotrin) 81 mg PO DAILY [facility] Last Admin: 06/16/18 08:41 Dose: 81 mg Atorvastatin Calcium (Lipitor) 10 mg PO HS [facility] Last Admin: 06/15/18 22:04 Dose: 10 mg Bethanechol Chloride (Urecholine) 50 mg PO TID [facility] Last Admin: 06/16/18 12:35 Dose: 50 mg Carvedilol (Coreg) 12.5 mg PO BID [facility] Last Admin: 06/16/18 08:41 Dose: 12.5 mg Cholestyramine Resin (Questran) 4 gm PO DAILY [facility] Last Admin: 06/16/18 08:42 Dose: 4 gm Docusate Sodium (Colace) 100 mg PO DAILY PRN PRN Reason: Constipation Levetiracetam (Keppra) 500 mg PO BID [facility] Last Admin: 06/16/18 08:42 Dose: 500 mg Metformin HCl (Glucophage) 500 mg PO TID [facility] Last Admin: 06/16/18 12:35 Dose: 500 mg Nystatin (Nystatin Oral Susp) 5 ml PO QID [facility] Last Admin: 06/16/18 12:35 Dose: 5 ml Ondansetron HCl (Zofran Odt) 4 mg PO Q8H PRN PRN Reason: Nausea/Vomiting Pantoprazole Sodium (Protonix Ec Tab) 40 mg PO BID [facility] Last Admin: 06/16/18 08:42 Dose: 40 mg Tamsulosin HCl (Flomax) 0.8 mg PO DAILY [facility] Last Admin: 06/16/18 08:41 Dose: 0.8 mg - Labs Labs: 06/15/18 05:30 06/15/18 05:30 - Constitutional Appears: Well, Non-toxic, No Acute Distress - Head Exam Head Exam: ATRAUMATIC, NORMOCEPHALIC - Eye Exam Eye Exam: Normal appearance. absent: Conjunctival injection, Scleral icterus - ENT Exam ENT Exam: Mucous Membranes Moist, Normal Oropharynx - Respiratory Exam Respiratory Exam: NORMAL BREATHING PATTERN. absent: Accessory Muscle Use, Respiratory Distress - Cardiovascular Exam Cardiovascular Exam: RRR - GI/Abdominal Exam GI & Abdominal Exam: Soft, Hernia (soft, non-tender, reducible umbilical hernia) . absent: Distended, Tenderness - Extremities Exam Extremities Exam: absent: Calf Tenderness, Pedal Edema, Tenderness - Neurological Exam Neurological Exam: Alert, Awake, Oriented x3 - Psychiatric Exam Psychiatric exam: Normal Affect, Normal Mood - Skin Skin Exam: Dry, Intact, Normal Color, Warm Assessment and Plan (1) GI bleed Status: Resolved (2) Anemia Status: Chronic (3) Constipation Status: Resolved (4) Diarrhea Status: Resolved - Assessment and Plan (Free Text) Assessment: 77M with diarrhea and recent GI bleed, both now resolved Plan: Continue current diet Continue cholestyramine No indication for endoscopic intervention at this time Continue PT Discussed with Dr. Villegas, who agrees with above Kate Sierra, PGY2
--- NOTE | 2018-06-16 19:37 | CP.PCM.PN ---
Subjective - Date & Time of Evaluation Date of Evaluation: 06/16/18 Time of Evaluation: 22:22 - Subjective Subjective: GI note appreciated Objective - Vital Signs/Intake and Output Vital Signs (last 24 hours): Temp Pulse Resp BP Pulse Ox 97.0 F L 66 20 121/64 100 06/16/18 16:52 06/16/18 16:52 06/16/18 16:52 06/16/18 16:52 06/16/18 16:52 - Medications Medications: Current Medications Aspirin (Ecotrin) 81 mg PO DAILY [facility] Last Admin: 06/16/18 08:41 Dose: 81 mg Atorvastatin Calcium (Lipitor) 10 mg PO HS [facility] Last Admin: 06/15/18 22:04 Dose: 10 mg Bethanechol Chloride (Urecholine) 50 mg PO TID [facility] Last Admin: 06/16/18 16:46 Dose: 50 mg Carvedilol (Coreg) 12.5 mg PO BID [facility] Last Admin: 06/16/18 16:46 Dose: 12.5 mg Cholestyramine Resin (Questran) 4 gm PO DAILY [facility] Last Admin: 06/16/18 08:42 Dose: 4 gm Docusate Sodium (Colace) 100 mg PO DAILY PRN PRN Reason: Constipation Levetiracetam (Keppra) 500 mg PO BID [facility] Last Admin: 06/16/18 16:46 Dose: 500 mg Metformin HCl (Glucophage) 500 mg PO TID [facility] Last Admin: 06/16/18 16:46 Dose: 500 mg Nystatin (Nystatin Oral Susp) 5 ml PO QID [facility] Last Admin: 06/16/18 16:46 Dose: 5 ml Ondansetron HCl (Zofran Odt) 4 mg PO Q8H PRN PRN Reason: Nausea/Vomiting Pantoprazole Sodium (Protonix Ec Tab) 40 mg PO BID [facility] Last Admin: 06/16/18 16:46 Dose: 40 mg Tamsulosin HCl (Flomax) 0.8 mg PO DAILY [facility] Last Admin: 06/16/18 08:41 Dose: 0.8 mg - Labs Labs: 06/15/18 05:30 06/15/18 05:30 - Respiratory Exam Respiratory Exam: NORMAL BREATHING PATTERN - Cardiovascular Exam Cardiovascular Exam: REGULAR RHYTHM - GI/Abdominal Exam GI & Abdominal Exam: Normal Bowel Sounds Assessment and Plan - Assessment and Plan (Free Text) Assessment: Decondioning PT Diarrhea Fecal impaction? cultures ordered EGD Gastric polyps (Outpt Colonoscopy) Anemia GI Bleed? 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
--- NOTE | 2018-06-16 23:11 | CP.PCM.PN ---
Subjective - Date & Time of Evaluation Date of Evaluation: 06/16/18 Time of Evaluation: 19:40 - Subjective Subjective: No complaints. Objective - Vital Signs/Intake and Output Vital Signs (last 24 hours): Temp Pulse Resp BP Pulse Ox 97.3 F L 68 20 121/59 L 100 06/16/18 20:07 06/16/18 20:07 06/16/18 20:07 06/16/18 20:07 06/16/18 20:07 - Medications Medications: Current Medications Aspirin (Ecotrin) 81 mg PO DAILY [facility] Last Admin: 06/16/18 08:41 Dose: 81 mg Atorvastatin Calcium (Lipitor) 10 mg PO HS [facility] Last Admin: 06/16/18 21:49 Dose: 10 mg Bethanechol Chloride (Urecholine) 50 mg PO TID [facility] Last Admin: 06/16/18 16:46 Dose: 50 mg Carvedilol (Coreg) 12.5 mg PO BID [facility] Last Admin: 06/16/18 16:46 Dose: 12.5 mg Cholestyramine Resin (Questran) 4 gm PO DAILY [facility] Last Admin: 06/16/18 08:42 Dose: 4 gm Docusate Sodium (Colace) 100 mg PO DAILY PRN PRN Reason: Constipation Levetiracetam (Keppra) 500 mg PO BID [facility] Last Admin: 06/16/18 16:46 Dose: 500 mg Metformin HCl (Glucophage) 500 mg PO TID [facility] Last Admin: 06/16/18 16:46 Dose: 500 mg Nystatin (Nystatin Oral Susp) 5 ml PO QID [facility] Last Admin: 06/16/18 21:49 Dose: 5 ml Ondansetron HCl (Zofran Odt) 4 mg PO Q8H PRN PRN Reason: Nausea/Vomiting Pantoprazole Sodium (Protonix Ec Tab) 40 mg PO BID [facility] Last Admin: 06/16/18 16:46 Dose: 40 mg Tamsulosin HCl (Flomax) 0.8 mg PO DAILY [facility] Last Admin: 06/16/18 08:41 Dose: 0.8 mg - Labs Labs: 06/15/18 05:30 06/15/18 05:30 - Head Exam Head Exam: ATRAUMATIC - Eye Exam Eye Exam: Normal appearance - ENT Exam ENT Exam: Mucous Membranes Dry - Respiratory Exam Respiratory Exam: NORMAL BREATHING PATTERN - Cardiovascular Exam Cardiovascular Exam: +S1, +S2 - GI/Abdominal Exam GI & Abdominal Exam: Normal Bowel Sounds Assessment and Plan (1) Anemia Assessment & Plan: H/H stable iron deficiency anemia; s/p PRBC transfusion and IV Venofer recent EGD negative for active bleeding anemia of CKD; on procrit Status: Chronic
[2018-06-17] MEDS: Nystatin 100,000 Units/ml Oral Susp 5 ml UD PO SCH ×4 (08:25→22:07)
[2018-06-17] MEDS: Cholestyramine 4 gm/Pkt UD PO SCH (08:25)
[2018-06-17] MEDS: Bethanechol 50 MG TAB PO SCH ×3 (08:26→16:32)
[2018-06-17] MEDS: Pantoprazole 40 mg EC Tab PO SCH ×2 (08:27→16:33)
--- NOTE | 2018-06-17 10:06 | CP.PCM.PN ---
Subjective - Date & Time of Evaluation Date of Evaluation: 06/17/18 Time of Evaluation: 09:00 - Subjective Subjective: GI consult note for Dr. Villegas Pt seen and examined at bedside this AM. NO adverse events overnight. Pt has normal consistency bowel movements, no abdominal pain or nausea and is tolerating diet Objective - Vital Signs/Intake and Output Vital Signs (last 24 hours): Temp Pulse Resp BP Pulse Ox 97.5 F L 67 20 126/56 L 97 06/17/18 07:44 06/17/18 08:25 06/17/18 07:44 06/17/18 08:25 06/17/18 07:44 Intake and Output: 06/17/18 06/17/18 06:59 18:59 Intake Total 300 Output Total 500 Balance -200 - Medications Medications: Current Medications Aspirin (Ecotrin) 81 mg PO DAILY [facility] Last Admin: 06/17/18 08:26 Dose: 81 mg Atorvastatin Calcium (Lipitor) 10 mg PO HS [facility] Last Admin: 06/16/18 21:49 Dose: 10 mg Bethanechol Chloride (Urecholine) 50 mg PO TID [facility] Last Admin: 06/17/18 08:26 Dose: 50 mg Carvedilol (Coreg) 12.5 mg PO BID [facility] Last Admin: 06/17/18 08:25 Dose: 12.5 mg Cholestyramine Resin (Questran) 4 gm PO DAILY [facility] Last Admin: 06/17/18 08:25 Dose: 4 gm Docusate Sodium (Colace) 100 mg PO DAILY PRN PRN Reason: Constipation Levetiracetam (Keppra) 500 mg PO BID [facility] Last Admin: 06/17/18 08:26 Dose: 500 mg Metformin HCl (Glucophage) 500 mg PO TID [facility] Last Admin: 06/17/18 08:25 Dose: 500 mg Nystatin (Nystatin Oral Susp) 5 ml PO QID [facility] Last Admin: 06/17/18 08:25 Dose: 5 ml Ondansetron HCl (Zofran Odt) 4 mg PO Q8H PRN PRN Reason: Nausea/Vomiting Pantoprazole Sodium (Protonix Ec Tab) 40 mg PO BID [facility] Last Admin: 06/17/18 08:27 Dose: 40 mg Tamsulosin HCl (Flomax) 0.8 mg PO DAILY [facility] Last Admin: 06/17/18 08:25 Dose: 0.8 mg - Labs Labs: 06/15/18 05:30 06/15/18 05:30 - Constitutional Appears: Well, Non-toxic, No Acute Distress - Head Exam Head Exam: ATRAUMATIC, NORMOCEPHALIC - Eye Exam Eye Exam: Normal appearance. absent: Conjunctival injection, Scleral icterus - ENT Exam ENT Exam: Mucous Membranes Moist, Normal Oropharynx - Respiratory Exam Respiratory Exam: NORMAL BREATHING PATTERN. absent: Accessory Muscle Use, Respiratory Distress - GI/Abdominal Exam GI & Abdominal Exam: Soft. absent: Distended, Tenderness - Extremities Exam Extremities Exam: absent: Calf Tenderness, Pedal Edema, Tenderness - Neurological Exam Neurological Exam: Alert, Awake, Oriented x3 - Psychiatric Exam Psychiatric exam: Normal Affect, Normal Mood - Skin Skin Exam: Dry, Normal Color, Warm Assessment and Plan (1) GI bleed Status: Resolved (2) Anemia Status: Chronic (3) Constipation Status: Resolved (4) Diarrhea Status: Resolved - Assessment and Plan (Free Text) Assessment: 77M with recent GI bleed, now resolved and diarrhea, now resolved Plan: No further GI intervention indicated Stop cholestyramine now that diarrhea has resolved Discussed with Dr. Bakari Sierra, PGY2
--- NOTE | 2018-06-17 20:39 | CP.PCM.PN ---
Subjective - Date & Time of Evaluation Date of Evaluation: 06/17/18 Time of Evaluation: 22:22 - Subjective Subjective: Above noted Objective - Vital Signs/Intake and Output Vital Signs (last 24 hours): Temp Pulse Resp BP Pulse Ox 97.5 F L 70 20 138/69 97 06/17/18 07:44 06/17/18 16:32 06/17/18 07:44 06/17/18 16:32 06/17/18 07:44 - Medications Medications: Current Medications Aspirin (Ecotrin) 81 mg PO DAILY [facility] Last Admin: 06/17/18 08:26 Dose: 81 mg Atorvastatin Calcium (Lipitor) 10 mg PO HS [facility] Last Admin: 06/16/18 21:49 Dose: 10 mg Bethanechol Chloride (Urecholine) 50 mg PO TID [facility] Last Admin: 06/17/18 16:32 Dose: 50 mg Carvedilol (Coreg) 12.5 mg PO BID [facility] Last Admin: 06/17/18 16:32 Dose: 12.5 mg Docusate Sodium (Colace) 100 mg PO DAILY PRN PRN Reason: Constipation Levetiracetam (Keppra) 500 mg PO BID [facility] Last Admin: 06/17/18 16:32 Dose: 500 mg Metformin HCl (Glucophage) 500 mg PO TID [facility] Last Admin: 06/17/18 16:32 Dose: 500 mg Nystatin (Nystatin Oral Susp) 5 ml PO QID [facility] Last Admin: 06/17/18 16:32 Dose: 5 ml Ondansetron HCl (Zofran Odt) 4 mg PO Q8H PRN PRN Reason: Nausea/Vomiting Pantoprazole Sodium (Protonix Ec Tab) 40 mg PO BID [facility] Last Admin: 06/17/18 16:33 Dose: 40 mg Tamsulosin HCl (Flomax) 0.8 mg PO DAILY [facility] Last Admin: 06/17/18 08:25 Dose: 0.8 mg - Labs Labs: 06/15/18 05:30 06/15/18 05:30 - Respiratory Exam Respiratory Exam: NORMAL BREATHING PATTERN - Cardiovascular Exam Cardiovascular Exam: REGULAR RHYTHM - GI/Abdominal Exam GI & Abdominal Exam: Normal Bowel Sounds Assessment and Plan - Assessment and Plan (Free Text) Assessment: Decondioning PT Diarrhea resolved EGD Gastric polyps Anemia GI Bleed? 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
[2018-06-18] MEDS: Pantoprazole 40 mg EC Tab PO SCH ×2 (08:46→16:29)
[2018-06-18] MEDS: Nystatin 100,000 Units/ml Oral Susp 5 ml UD PO SCH ×4 (08:46→21:39)
[2018-06-18] MEDS: Bethanechol 50 MG TAB PO SCH ×3 (08:47→17:22)
[2018-06-18 15:43] VITALS: RESP 20
--- NOTE | 2018-06-18 18:22 | CP.PCM.PN ---
Subjective - Date & Time of Evaluation Date of Evaluation: 06/18/18 Time of Evaluation: 22:22 - Subjective Subjective: Above noted Doing well Objective - Vital Signs/Intake and Output Vital Signs (last 24 hours): Temp Pulse Resp BP Pulse Ox 97.7 F 67 20 115/64 98 06/18/18 15:42 06/18/18 16:30 06/18/18 15:42 06/18/18 16:30 06/18/18 15:42 Intake and Output: 06/18/18 06/18/18 06:59 18:59 Intake Total 400 Output Total 700 Balance -300 - Medications Medications: Current Medications Aspirin (Ecotrin) 81 mg PO DAILY [facility] Last Admin: 06/18/18 08:49 Dose: 81 mg Atorvastatin Calcium (Lipitor) 10 mg PO HS [facility] Last Admin: 06/17/18 22:07 Dose: 10 mg Bethanechol Chloride (Urecholine) 50 mg PO TID [facility] Last Admin: 06/18/18 17:22 Dose: 50 mg Carvedilol (Coreg) 12.5 mg PO BID [facility] Last Admin: 06/18/18 16:30 Dose: 12.5 mg Docusate Sodium (Colace) 100 mg PO DAILY PRN PRN Reason: Constipation Last Admin: 06/18/18 08:48 Dose: 100 mg Levetiracetam (Keppra) 500 mg PO BID [facility] Last Admin: 06/18/18 16:30 Dose: 500 mg Metformin HCl (Glucophage) 500 mg PO TID [facility] Last Admin: 06/18/18 16:29 Dose: 500 mg Nystatin (Nystatin Oral Susp) 5 ml PO QID [facility] Last Admin: 06/18/18 16:29 Dose: 5 ml Ondansetron HCl (Zofran Odt) 4 mg PO Q8H PRN PRN Reason: Nausea/Vomiting Pantoprazole Sodium (Protonix Ec Tab) 40 mg PO BID [facility] Last Admin: 06/18/18 16:29 Dose: 40 mg Tamsulosin HCl (Flomax) 0.8 mg PO DAILY [facility] Last Admin: 06/18/18 08:47 Dose: 0.8 mg - Labs Labs: 06/15/18 05:30 06/15/18 05:30 - Respiratory Exam Respiratory Exam: NORMAL BREATHING PATTERN - Cardiovascular Exam Cardiovascular Exam: REGULAR RHYTHM - GI/Abdominal Exam GI & Abdominal Exam: Normal Bowel Sounds Assessment and Plan - Assessment and Plan (Free Text) Assessment: Decondioning PT Diarrhea resolved EGD Gastric polyps Anemia GI Bleed? 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
[2018-06-19] MEDS: Nystatin 100,000 Units/ml Oral Susp 5 ml UD PO SCH ×4 (08:36→21:45)
[2018-06-19] MEDS: Bethanechol 50 MG TAB PO SCH ×3 (08:38→16:38)
[2018-06-19] MEDS: Pantoprazole 40 mg EC Tab PO SCH ×2 (08:43→16:45)
--- NOTE | 2018-06-19 13:07 | CP.PCM.PN ---
Subjective - Date & Time of Evaluation Date of Evaluation: 06/19/18 Time of Evaluation: 12:30 - Subjective Subjective: GI progress note for Dr. Villegas Pt seen and examined at bedside. Pt denies any nausea, abdominal pain, is tolerating diet and having regular bowel movements Objective - Vital Signs/Intake and Output Vital Signs (last 24 hours): Temp Pulse Resp BP Pulse Ox 97.2 F L 67 20 134/69 99 06/19/18 09:05 06/19/18 09:05 06/19/18 09:05 06/19/18 09:05 06/19/18 09:05 Intake and Output: 06/19/18 06/19/18 06:59 18:59 Output Total 300 Balance -300 - Medications Medications: Current Medications Aspirin (Ecotrin) 81 mg PO DAILY [facility] Last Admin: 06/19/18 08:36 Dose: 81 mg Atorvastatin Calcium (Lipitor) 10 mg PO HS [facility] Last Admin: 06/18/18 21:39 Dose: 10 mg Bethanechol Chloride (Urecholine) 50 mg PO TID [facility] Last Admin: 06/19/18 08:38 Dose: 50 mg Carvedilol (Coreg) 12.5 mg PO BID [facility] Last Admin: 06/19/18 08:37 Dose: 12.5 mg Docusate Sodium (Colace) 100 mg PO DAILY PRN PRN Reason: Constipation Last Admin: 06/19/18 08:38 Dose: 100 mg Levetiracetam (Keppra) 500 mg PO BID [facility] Last Admin: 06/19/18 08:36 Dose: 500 mg Metformin HCl (Glucophage) 500 mg PO TID [facility] Last Admin: 06/19/18 08:36 Dose: 500 mg Nystatin (Nystatin Oral Susp) 5 ml PO QID [facility] Last Admin: 06/19/18 08:36 Dose: 5 ml Ondansetron HCl (Zofran Odt) 4 mg PO Q8H PRN PRN Reason: Nausea/Vomiting Pantoprazole Sodium (Protonix Ec Tab) 40 mg PO BID [facility] Last Admin: 06/19/18 08:43 Dose: 40 mg Tamsulosin HCl (Flomax) 0.8 mg PO DAILY [facility] Last Admin: 06/19/18 08:37 Dose: 0.8 mg - Labs Labs: 06/15/18 05:30 06/15/18 05:30 - Constitutional Appears: Well, Non-toxic, No Acute Distress - Head Exam Head Exam: ATRAUMATIC, NORMOCEPHALIC - Eye Exam Eye Exam: Normal appearance. absent: Conjunctival injection, Scleral icterus - ENT Exam ENT Exam: Mucous Membranes Moist, Normal Oropharynx - Respiratory Exam Respiratory Exam: NORMAL BREATHING PATTERN. absent: Accessory Muscle Use, Respiratory Distress - GI/Abdominal Exam GI & Abdominal Exam: Soft. absent: Distended, Tenderness - Neurological Exam Neurological Exam: Alert, Awake, Oriented x3 - Psychiatric Exam Psychiatric exam: Normal Affect, Normal Mood - Skin Skin Exam: Dry, Intact, Normal Color, Warm Assessment and Plan (1) GI bleed Status: Resolved (2) Anemia Status: Chronic (3) Constipation Status: Resolved (4) Diarrhea Status: Resolved - Assessment and Plan (Free Text) Assessment: 77M with UGI bleed--now resolved, and diarrhea, now resolved Plan: No further GI intervention indicated Stop cholestyramine now that diarrhea has resolved Follow up with Dr. Villegas in his office on D/C Will need repeat EGD in the future for re-evaluation Discussed with Dr. Bakari Sierra, PGY2
--- NOTE | 2018-06-19 19:32 | CP.PCM.PN ---
Subjective - Date & Time of Evaluation Date of Evaluation: 06/19/18 Time of Evaluation: 22:22 - Subjective Subjective: Above noted Objective - Vital Signs/Intake and Output Vital Signs (last 24 hours): Temp Pulse Resp BP Pulse Ox 97.5 F L 67 20 139/66 99 06/19/18 17:04 06/19/18 17:04 06/19/18 17:04 06/19/18 17:04 06/19/18 17:04 Intake and Output: 06/19/18 06/20/18 18:59 06:59 Output Total 450 Balance -450 - Medications Medications: Current Medications Aspirin (Ecotrin) 81 mg PO DAILY [facility] Last Admin: 06/19/18 08:36 Dose: 81 mg Atorvastatin Calcium (Lipitor) 10 mg PO HS [facility] Last Admin: 06/18/18 21:39 Dose: 10 mg Bethanechol Chloride (Urecholine) 50 mg PO TID [facility] Last Admin: 06/19/18 16:38 Dose: 50 mg Carvedilol (Coreg) 12.5 mg PO BID [facility] Last Admin: 06/19/18 16:37 Dose: 12.5 mg Docusate Sodium (Colace) 100 mg PO DAILY PRN PRN Reason: Constipation Last Admin: 06/19/18 08:38 Dose: 100 mg Levetiracetam (Keppra) 500 mg PO BID [facility] Last Admin: 06/19/18 16:37 Dose: 500 mg Metformin HCl (Glucophage) 500 mg PO TID [facility] Last Admin: 06/19/18 16:37 Dose: 500 mg Nystatin (Nystatin Oral Susp) 5 ml PO QID [facility] Last Admin: 06/19/18 16:37 Dose: 5 ml Ondansetron HCl (Zofran Odt) 4 mg PO Q8H PRN PRN Reason: Nausea/Vomiting Pantoprazole Sodium (Protonix Ec Tab) 40 mg PO BID [facility] Last Admin: 06/19/18 16:45 Dose: 40 mg Tamsulosin HCl (Flomax) 0.8 mg PO DAILY [facility] Last Admin: 06/19/18 08:37 Dose: 0.8 mg - Labs Labs: 06/15/18 05:30 06/15/18 05:30 - Respiratory Exam Respiratory Exam: NORMAL BREATHING PATTERN - Cardiovascular Exam Cardiovascular Exam: REGULAR RHYTHM - GI/Abdominal Exam GI & Abdominal Exam: Normal Bowel Sounds Assessment and Plan - Assessment and Plan (Free Text) Assessment: Decondioning PT Diarrhea resolved EGD Gastric polyps Anemia GI Bleed? 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
[2018-06-20] MEDS: Bethanechol 50 MG TAB PO SCH ×2 (08:11→12:19)
[2018-06-20] MEDS: Nystatin 100,000 Units/ml Oral Susp 5 ml UD PO SCH ×2 (08:12→12:19)
[2018-06-20] MEDS: Pantoprazole 40 mg EC Tab PO SCH (08:13)
[2018-06-20 08:14] VITALS: BP 136/60; PULSE 73
[2018-06-20 08:23] VITALS: TEMP 98.1; O2SAT 99
--- NOTE | 2018-06-20 11:03 | CP.PCM.PN ---
Subjective - Date & Time of Evaluation Date of Evaluation: 06/20/18 Time of Evaluation: 22:22 - Subjective Subjective: Above noted Objective - Vital Signs/Intake and Output Vital Signs (last 24 hours): Temp Pulse Resp BP Pulse Ox 98.1 F 73 20 136/60 99 06/20/18 08:22 06/20/18 08:22 06/20/18 08:22 06/20/18 08:22 06/20/18 08:22 - Medications Medications: Current Medications Aspirin (Ecotrin) 81 mg PO DAILY [facility] Last Admin: 06/20/18 08:12 Dose: 81 mg Atorvastatin Calcium (Lipitor) 10 mg PO HS [facility] Last Admin: 06/19/18 21:44 Dose: 10 mg Bethanechol Chloride (Urecholine) 50 mg PO TID [facility] Last Admin: 06/20/18 08:11 Dose: 50 mg Carvedilol (Coreg) 12.5 mg PO BID [facility] Last Admin: 06/20/18 08:12 Dose: 12.5 mg Docusate Sodium (Colace) 100 mg PO DAILY PRN PRN Reason: Constipation Last Admin: 06/19/18 08:38 Dose: 100 mg Levetiracetam (Keppra) 500 mg PO BID [facility] Last Admin: 06/20/18 08:11 Dose: 500 mg Metformin HCl (Glucophage) 500 mg PO TID [facility] Last Admin: 06/20/18 08:11 Dose: 500 mg Nystatin (Nystatin Oral Susp) 5 ml PO QID [facility] Last Admin: 06/20/18 08:12 Dose: 5 ml Ondansetron HCl (Zofran Odt) 4 mg PO Q8H PRN PRN Reason: Nausea/Vomiting Pantoprazole Sodium (Protonix Ec Tab) 40 mg PO BID [facility] Last Admin: 06/20/18 08:13 Dose: 40 mg Tamsulosin HCl (Flomax) 0.8 mg PO DAILY [facility] Last Admin: 06/20/18 08:11 Dose: 0.8 mg - Labs Labs: 06/15/18 05:30 06/15/18 05:30 - Respiratory Exam Respiratory Exam: NORMAL BREATHING PATTERN - Cardiovascular Exam Cardiovascular Exam: REGULAR RHYTHM - GI/Abdominal Exam GI & Abdominal Exam: Normal Bowel Sounds Assessment and Plan - Assessment and Plan (Free Text) Assessment: Decondioning PT Diarrhea resolved EGD Gastric polyps Anemia GI Bleed? 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
--- NOTE | 2018-06-20 13:02 | CP.PCM.PN ---
Subjective - Date & Time of Evaluation Date of Evaluation: 06/18/18 Time of Evaluation: 13:00 - Subjective Subjective: No complaints. Objective - Vital Signs/Intake and Output Vital Signs (last 24 hours): Temp Pulse Resp BP Pulse Ox 98.1 F 73 20 136/60 99 06/20/18 08:22 06/20/18 08:22 06/20/18 08:22 06/20/18 08:22 06/20/18 08:22 - Medications Medications: Current Medications Aspirin (Ecotrin) 81 mg PO DAILY [facility] Last Admin: 06/20/18 08:12 Dose: 81 mg Atorvastatin Calcium (Lipitor) 10 mg PO HS [facility] Last Admin: 06/19/18 21:44 Dose: 10 mg Bethanechol Chloride (Urecholine) 50 mg PO TID [facility] Last Admin: 06/20/18 12:19 Dose: 50 mg Carvedilol (Coreg) 12.5 mg PO BID [facility] Last Admin: 06/20/18 08:12 Dose: 12.5 mg Docusate Sodium (Colace) 100 mg PO DAILY PRN PRN Reason: Constipation Last Admin: 06/19/18 08:38 Dose: 100 mg Levetiracetam (Keppra) 500 mg PO BID [facility] Last Admin: 06/20/18 08:11 Dose: 500 mg Metformin HCl (Glucophage) 500 mg PO TID [facility] Last Admin: 06/20/18 12:19 Dose: 500 mg Nystatin (Nystatin Oral Susp) 5 ml PO QID [facility] Last Admin: 06/20/18 12:19 Dose: 5 ml Ondansetron HCl (Zofran Odt) 4 mg PO Q8H PRN PRN Reason: Nausea/Vomiting Pantoprazole Sodium (Protonix Ec Tab) 40 mg PO BID [facility] Last Admin: 06/20/18 08:13 Dose: 40 mg Tamsulosin HCl (Flomax) 0.8 mg PO DAILY [facility] Last Admin: 06/20/18 08:11 Dose: 0.8 mg - Labs Labs: 06/15/18 05:30 06/15/18 05:30 - Head Exam Head Exam: ATRAUMATIC - Eye Exam Eye Exam: Normal appearance - ENT Exam ENT Exam: Mucous Membranes Dry - Respiratory Exam Respiratory Exam: NORMAL BREATHING PATTERN - Cardiovascular Exam Cardiovascular Exam: +S1, +S2 - GI/Abdominal Exam GI & Abdominal Exam: Normal Bowel Sounds Assessment and Plan (1) Anemia Assessment & Plan: H/H stable iron deficiency anemia; s/p PRBC transfusion and IV Venofer recent EGD negative for active bleeding anemia of CKD; on procrit Status: Chronic
--- NOTE | 2018-06-20 13:03 | CP.PCM.PN ---
Subjective - Date & Time of Evaluation Date of Evaluation: 06/20/18 Time of Evaluation: 12:15 - Subjective Subjective: No complaints. Objective - Vital Signs/Intake and Output Vital Signs (last 24 hours): Temp Pulse Resp BP Pulse Ox 98.1 F 73 20 136/60 99 06/20/18 08:22 06/20/18 08:22 06/20/18 08:22 06/20/18 08:22 06/20/18 08:22 - Medications Medications: Current Medications Aspirin (Ecotrin) 81 mg PO DAILY [facility] Last Admin: 06/20/18 08:12 Dose: 81 mg Atorvastatin Calcium (Lipitor) 10 mg PO HS [facility] Last Admin: 06/19/18 21:44 Dose: 10 mg Bethanechol Chloride (Urecholine) 50 mg PO TID [facility] Last Admin: 06/20/18 12:19 Dose: 50 mg Carvedilol (Coreg) 12.5 mg PO BID [facility] Last Admin: 06/20/18 08:12 Dose: 12.5 mg Docusate Sodium (Colace) 100 mg PO DAILY PRN PRN Reason: Constipation Last Admin: 06/19/18 08:38 Dose: 100 mg Levetiracetam (Keppra) 500 mg PO BID [facility] Last Admin: 06/20/18 08:11 Dose: 500 mg Metformin HCl (Glucophage) 500 mg PO TID [facility] Last Admin: 06/20/18 12:19 Dose: 500 mg Nystatin (Nystatin Oral Susp) 5 ml PO QID [facility] Last Admin: 06/20/18 12:19 Dose: 5 ml Ondansetron HCl (Zofran Odt) 4 mg PO Q8H PRN PRN Reason: Nausea/Vomiting Pantoprazole Sodium (Protonix Ec Tab) 40 mg PO BID [facility] Last Admin: 06/20/18 08:13 Dose: 40 mg Tamsulosin HCl (Flomax) 0.8 mg PO DAILY [facility] Last Admin: 06/20/18 08:11 Dose: 0.8 mg - Labs Labs: 06/15/18 05:30 06/15/18 05:30 - Head Exam Head Exam: ATRAUMATIC - Eye Exam Eye Exam: Normal appearance - ENT Exam ENT Exam: Mucous Membranes Dry - Respiratory Exam Respiratory Exam: NORMAL BREATHING PATTERN - Cardiovascular Exam Cardiovascular Exam: +S1, +S2 - GI/Abdominal Exam GI & Abdominal Exam: Normal Bowel Sounds Assessment and Plan (1) Anemia Assessment & Plan: H/H stable iron deficiency anemia; s/p PRBC transfusion and IV Venofer recent EGD negative for active bleeding anemia of CKD; on procrit Status: Chronic
== END 2018-06-20 15:30 | disposition home health service (06) | DRG 812 ==
LOC: H.TCU 21:12
PROVIDERS: ADMIT Family Medicine Geriatric Medicine; ATTEND Family Medicine Geriatric Medicine
PROC: F07Z9FZ Gait Training/Functional Ambulation Treatment using Assistive, Adaptive, Supportive or Protective Equipment (ICD-10-PCS; principal; 2018-06-11)
PROC: F08Z4FZ Home Management Treatment using Assistive, Adaptive, Supportive or Protective Equipment (ICD-10-PCS; 2018-06-11)
PROC: F07M6FZ Therapeutic Exercise Treatment of Musculoskeletal System - Whole Body using Assistive, Adaptive, Supportive or Protective Equipment (ICD-10-PCS; 2018-06-12)
DX: D50.8 Other iron deficiency anemias (principal); D63.1 Anemia in chronic kidney disease; E11.21 Type 2 diabetes mellitus with diabetic nephropathy; I12.9 Hypertensive chronic kidney disease with stage 1 through stage 4 chronic kidney disease, or unspecified chronic kidney disease; N18.9 Chronic kidney disease, unspecified; E11.22 Type 2 diabetes mellitus with diabetic chronic kidney disease; E78.5 Hyperlipidemia, unspecified; E78.00 Pure hypercholesterolemia, unspecified; G40.909 Epilepsy, unspecified, not intractable, without status epilepticus; K29.70 Gastritis, unspecified, without bleeding; N31.9 Neuromuscular dysfunction of bladder, unspecified; R33.9 Retention of urine, unspecified; K59.00 Constipation, unspecified; Z86.73 Personal history of transient ischemic attack (TIA), and cerebral infarction without residual deficits; Z79.84 Long term (current) use of oral hypoglycemic drugs; Z87.891 Personal history of nicotine dependence

== ENCOUNTER 2018-06-22 18:21 | Inpatient (IN) | payer MEDICARE ==
[2018-06-22 18:21] VITALS: BMI 23.3
[2018-06-22 19:10] LABS: VENOUS BLOOD GAS BASE EXCESS 0.1 mmol/L (0.0-2.0); VENOUS BLOOD GAS PCO2 46 mmHg (40-60); VENOUS BLOOD GAS PO2 18 mm/Hg (30-55); VENOUS BLOOD PH 7.36 (7.32-7.43)
[2018-06-22 19:23] LABS: BASO # 0.1 K/uL (0.0-0.2); BASO % 0.7 % (0.0-2.0); EOS # 0.3 K/uL (0.0-0.7); EOS % 1.8 % (0.0-4.0); HEMOGLOBIN 8.7 g/dL (12.0-18.0); LYMPH # 2.2 K/uL (1.0-4.3); LYMPH % 11.7 % (20.0-40.0); MEAN CELL VOLUME 92.6 fl (80.0-94.0); MEAN CORPUSCULAR HEMOGLOBIN 30.6 pg (27.0-31.0); MEAN CORPUSCULAR HGB CONC 33.1 g/dL (33.0-37.0); MONO # 0.9 K/uL (0.0-0.8); MONO % 4.8 % (0.0-10.0); NEUT # 15.4 K/uL (1.8-7.0); NRBC % 0.1 % (0.0-0.0); RBC 2.85 Mil/uL (4.40-5.90)
--- NOTE | 2018-06-22 19:23 | ED PDOC ---
HPI: Altered Mental Status Time Seen by Provider: 06/22/18 18:39 Chief Complaint (Nursing): Weakness/Neurological Deficit Chief Complaint (Provider): Weakness/Neurological Deficit History Per: Patient, Family History/Exam Limitations: None Onset/Duration Of Symptoms: Hrs Additional Complaint(s): Lizandro Davis is a 77 year old male with a past medical history of hypertension, hypercholesterolemia, diabetes, and CVA who is presenting to the ED for evaluation of weakness and concern for stroke. Patient has a recent medical history of hospitalizations: In December he had a stroke and while he was in the hospital he had a GI bleed in January, eventually was discharged home. Last week patient had a UTI, was admitted for IV antibiotics and was discharged 2 days ago. states that he seemed normal the last couple of days but this afternoon he seemed lethargic and tried to grab a glass of orange juice and dropped it. She states that she is concerned of a possible reoccurring stroke as his presentation was the same as in December prior to first stroke. Patient reports 1 episode of vomiting yesterday with no diarrhea. Urine in catheter bag seemed slightly darker than usual. Patient now denying any pain, weakness or dizziness. Of note, patient recently taken off all anti-coagulant medications following stroke. PMD: Dr. Moreno Past Medical History Reviewed: Historical Data, Nursing Documentation, Vital Signs Vital Signs: Last Vital Signs Temp 97.9 F 06/22/18 18:25 Pulse 78 06/22/18 18:25 Resp 18 06/22/18 18:25 BP 137/67 06/22/18 18:25 Pulse Ox 99 06/22/18 18:25 - Medical History PMH: Anemia, CVA (2009, January 2018), Diabetes, HTN, Hypercholesterolemia, Seizures Denies: HIV, Chronic Kidney Disease - Surgical History Surgical History: No Surg Hx - Family History Family History: States: Unknown Family Hx - Social History Current smoker - smoking cessation education provided: No Alcohol: None Drugs: Denies - Home Medications Home Medications: Ambulatory Orders Medication Instructions Recorded Carvedilol [Coreg] 12.5 mg PO BID 01/27/17 levETIRAcetam [Keppra] 500 mg PO BID 01/27/17 Pantoprazole [Protonix EC Tab] 40 mg PO DAILY ect 02/05/18 metFORMIN [glucOPHAGE] 500 mg PO TID tab 02/15/18 Simvastatin [Zocor] 20 mg PO HS 06/02/18 Tamsulosin [Flomax] 0.8 mg PO DAILY 06/02/18 Nystatin [Nystatin Oral Susp] 5 ml PO QID #30 udc 06/06/18 Polyethylene Glycol 3350 [Miralax] 17 gm PO DAILY #30 packet 06/06/18 Aspirin [Ecotrin] 81 mg PO DAILY tabec 06/11/18 Bethanechol [Urecholine] 50 mg PO TID tab 06/11/18 Docusate [Colace] 100 mg PO DAILY PRN cap 06/11/18 Cefuroxime Axetil [Cefuroxime] 500 mg PO DAILY #7 tablet 06/25/18 - Allergies Allergies/Adverse Reactions: Allergies Allergy/AdvReac Type Severity Reaction Status Date / Time No Known Allergies Allergy Verified 06/02/18 18:28 Review of Systems ROS Statement: Except As Marked, All Systems Reviewed And Found Negative Gastrointestinal: Positive for: Vomiting. Negative for: Diarrhea Neurological: Positive for: Weakness, Dizziness Physical Exam - Reviewed Nursing Documentation Reviewed: Yes Vital Signs Reviewed: Yes - Physical Exam Appears: Positive for: Non-toxic, No Acute Distress (residual weakness - states is baseline, cooperative and making jokes during exam) Head Exam: Positive for: ATRAUMATIC, NORMAL INSPECTION, NORMOCEPHALIC Skin: Positive for: Normal Color, Warm, DRY Eye Exam: Positive for: EOMI, Normal appearance, PERRL ENT: Positive for: Normal ENT Inspection Neck: Positive for: Normal, Painless ROM Cardiovascular/Chest: Positive for: Regular Rate, Rhythm. Negative for: Murmur Respiratory: Positive for: Normal Breath Sounds. Negative for: Respiratory Distress Pulses-Carotid (L): 2+ Pulses-Carotid (R): 2+ Pulses-Dorsalis Pedis (L): 2+ Pulses-Dorsalis Pedis (R): 2+ Pulses-Femoral (L): 2+ Pulses-Femoral (R): 2+ Pulses-Post. Tibialis (L): 2+ Pulses-Post. Tibialis (R): 2+ Pulses-Radial (L): 2+ Pulses-Radial (R): 2+ Gastrointestinal/Abdominal: Positive for: Normal Exam, Soft, Other (Lennon Catheter in place). Negative for: Tenderness Back: Positive for: Normal Inspection. Negative for: L CVA Tenderness, R CVA Tenderness, Vertebral Tenderness Extremity: Positive for: Normal ROM. Negative for: Pedal Edema, Calf Tenderness , Deformity, Swelling Neurologic/Psych: Positive for: Alert, video game maker II-XII (intact), Oriented, Gait ( normal ), Other (NIH stroke scale 0, no slurred speech). Negative for: Motor/ Sensory Deficits - Laboratory Results Result Diagrams: 06/24/18 05:50 06/24/18 05:50 - ECG ECG Rhythm: Positive for: 1st Degree Heart Block (AV Block) O2 Sat by Pulse Oximetry: 99 (RA) Pulse Ox Interpretation: Normal Medical Decision Making Medical Decision Making: Time: 19:02 Impression: workup for AMS vs stroke vs infectious process Plan: --VBG --CT Head --EKG --CMP --Drug Screen --Lipase --Troponin --ED Urine Dipstick --CBC --Coag --Chest X-ray EKG showed 1st degree AV block. 19:00 Patient will be signed out to Dr. Renteria pending CT results and final disposition. Scribe Attestation: Documented by, Karina Swan acting as a scribe for Edwina Medina MD. Provider Scribe Attestation: All medical record entries made by the Scribe were at my direction and personally dictated by me. I have reviewed the chart and agree that the record accurately reflects my personal performance of the history, physical exam, medical decision making, and the department course for this patient. I have also personally directed, reviewed, and agree with the discharge instructions and disposition. Disposition - Clinical Impression Clinical Impression: Weakness, UTI (urinary tract infection), Dehydration - Disposition Disposition Time: 19:00 Condition: FAIR
[2018-06-22 19:28] LABS: INR 1.1; PROTHROMBIN TIME 12.3 Seconds (9.8-13.1)
[2018-06-22 19:30] LABS: PARTIAL THROMBOPLASTIN TIME 24.6 Seconds (25.6-37.1)
--- NOTE | 2018-06-22 19:30 | ED PDOC ---
- Laboratory Results Result Diagrams: 06/23/18 12:45 06/23/18 12:45 - ECG O2 Sat by Pulse Oximetry: 99 (RA) Pulse Ox Interpretation: Normal Medical Decision Making Medical Decision Making: Time: 19:00 Patient signed out to me by Dr. Medina pending ER workup, reassessment, and final disposition. Chest X-ray shows no acute findings. CT Head: FINDINGS: Brain: Again noted are large areas of encephalomalacia involving the right frontotemporal and right occipital regions. Prominent sulci. Patchy hypodensity of the cerebral white matter which are nonspecific but likely secondary to microangiopathic changes. No hemorrhage. Ventricles: The ventricles are prominent secondary to diffuse volume loss/atrophy. Bones/joints: Unremarkable. No acute fracture. Soft tissues: Unremarkable. Sinuses: Unremarkable as visualized. No acute sinusitis. Mastoid air cells: Unremarkable as visualized. No mastoid effusion. IMPRESSION: Chronic age related changes and extensive encephalomalacia in the right hemisphere but no evidence of acute intracranial pathology. 20:52 --Labs demonstate leukocytosis and mildly elevated lactic acid as well as a urinary tract infection. --CT scan otherwise unremarkable. Case discussed with Dr. Taylor who is covering for PMD Dr. Moreno. --Patient maria a be hospitalized for UTI, dehydration and weakness. --IV fluids and antibiotics initiated. Scribe Attestation: Documented by, Karina Swan acting as a scribe for Michelle Renteria MD. Provider Scribe Attestation: All medical record entries made by the Scribe were at my direction and personally dictated by me. I have reviewed the chart and agree that the record accurately reflects my personal performance of the history, physical exam, medical decision making, and the department course for this patient. I have also personally directed, reviewed, and agree with the discharge instructions and disposition. Disposition Counseled Patient/Family Regarding: Studies Performed, Diagnosis - Clinical Impression Clinical Impression: Weakness, UTI (urinary tract infection), Dehydration - POA Present On Arrival: Cath Associated UTI - Disposition Disposition: Hospitalized as Observation Patient Disposition Time: 20:00 Condition: FAIR
[2018-06-22 19:33] LABS: ALBUMIN 3.4 g/dL (3.5-5.0); ALT/SGPT 20 U/L (21-72); AST/SGOT 28 U/L (17-59); BLOOD UREA NITROGEN 39 mg/dl (9-20); CALCIUM 8.9 mg/dL (8.4-10.2); GFR NON-AFRICAN AMERICAN 49; LIPASE 29 U/L (23-300)
[2018-06-22] MEDS ORDERED: Sodium Chloride 0.9% 500 ML IV STA (19:50)
--- NOTE | 2018-06-22 20:10 | CT ---
EXAM: CT Head Without Intravenous Contrast EXAM DATE/TIME: 06/22/2018 6:42 PM CLINICAL HISTORY: 77 years old, male; Signs and symptoms; Other: Weakness with recent stroke; Additional info: Weakness with recent stroke TECHNIQUE: Axial computed tomography images of the head/brain without intravenous contrast. All CT scans at this facility use at least one of these dose optimization techniques: automated exposure control; mA and/or kV adjustment per patient size (includes targeted exams where dose is matched to clinical indication); or iterative reconstruction. Coronal and sagittal reformatted images were created and reviewed. COMPARISON: CT - HEAD W/O CONTRAST 06/02/2018 9:31 PM FINDINGS: Brain: Again noted are large areas of encephalomalacia involving the right frontotemporal and right occipital regions. Prominent sulci. Patchy hypodensity of the cerebral white matter which are nonspecific but likely secondary to microangiopathic changes. No hemorrhage. Ventricles: The ventricles are prominent secondary to diffuse volume loss/atrophy. Bones/joints: Unremarkable. No acute fracture. Soft tissues: Unremarkable. Sinuses: Unremarkable as visualized. No acute sinusitis. Mastoid air cells: Unremarkable as visualized. No mastoid effusion. IMPRESSION: Chronic age related changes and extensive encephalomalacia in the right hemisphere but no evidence of acute intracranial pathology.
[2018-06-22 20:28] LABS: SQUAMOUS EPITHIAL < 1 /hpf (0-5); URINE BACTERIA OCC (<OCC); URINE BILIRUBIN NEGATIVE (NEGATIVE); URINE BLOOD NEGATIVE (NEGATIVE); URINE CLARITY CLOUDY (Clear); URINE COLOR YELLOW (YELLOW); URINE GLUCOSE (UA) NEG (Normal); URINE LEUKOCYTE ESTERASE LARGE Leu/uL (Negative); URINE PROTEIN 100 mg/dL (NEGATIVE); WBC CLUMPS RARE /hpf
[2018-06-22 20:48] LABS: BARBITURATES, UR NEGATIVE (NEGATIVE); BENZODIAZEPINES, UR NEGATIVE (NEGATIVE); OPIATES, UR NEGATIVE (NEGATIVE); PHENCYCLIDINE, UR NEGATIVE (NEGATIVE)
[2018-06-22] MEDS ORDERED: cefTRIAXone (Rocephin) 1 gm Inj ONE (21:12)
--- NOTE | 2018-06-22 22:55 | CARD ---
APPROVED REPORT Date of service: 06/22/2018 EKG Measurement Heart [id number] <Conclusion> Sinus rhythm with 1st degree AV block Otherwise normal ECG
--- NOTE | 2018-06-23 08:45 | RAD ---
Date of service: 06/22/2018 PROCEDURE: CHEST RADIOGRAPH, 1 VIEW HISTORY: weak with recent stroke history COMPARISON: None available. FINDINGS: LUNGS: No active pulmonary disease. Improved inspiratory volume noted. PLEURA: No pneumothorax or pleural fluid seen. CARDIOVASCULAR: Normal. OSSEOUS STRUCTURES: No significant abnormalities. VISUALIZED UPPER ABDOMEN: Normal. OTHER FINDINGS: None. IMPRESSION: No interval acute cardiopulmonary disease appreciated.
[2018-06-23] MEDS: Pantoprazole 40 mg EC Tab PO SCH (11:07)
[2018-06-23] MEDS: Nystatin 100,000 Units/ml Oral Susp 5 ml UD PO SCH ×4 (11:16→21:28)
[2018-06-23] MEDS: Enoxaparin 40 mg Syringe SC SCH (11:16)
[2018-06-23] MEDS: POLYETHYLENE GLYCOL 3350 17 GM/Dose PACKET PO SCH (11:16)
[2018-06-23] MEDS: Bethanechol 50 MG TAB PO SCH ×3 (11:16→17:36)
[2018-06-23 12:49] LABS: HEMOGLOBIN 8.2 g/dL (12.0-18.0); MEAN CELL VOLUME 91.8 fl (80.0-94.0); MEAN CORPUSCULAR HEMOGLOBIN 30.6 pg (27.0-31.0); MEAN CORPUSCULAR HGB CONC 33.3 g/dL (33.0-37.0); RBC 2.68 Mil/uL (4.40-5.90); RED CELL DISTRIBUTION WIDTH 17.9 % (11.5-14.5); WHITE BLOOD COUNT 9.8 K/uL (4.8-10.8)
[2018-06-23 13:08] LABS: BLOOD UREA NITROGEN 27 mg/dl (9-20); CALCIUM 8.5 mg/dL (8.4-10.2); GFR NON-AFRICAN AMERICAN > 60
--- NOTE | 2018-06-23 21:14 | CP.PCM.HP ---
History of Present Illness - History of Present Illness History of Present Illness: 77 yo with hx of CVA on ASA (GI Bleed) admitted for weakness LUE and fever x 2days Present on Admission - Present on Admission Any Indicators Present on Admission: No Past Patient History - Past Medical History & Family History Past Medical History?: Yes - Past Social History Smoking Status: Former Smoker - CARDIAC Hx Cardiac Disorders: Yes (HTN) - PULMONARY Hx Respiratory Disorders: No - NEUROLOGICAL Hx Neurological Disorder: Yes (CVA) - HEENT Hx HEENT Problems: No - RENAL Hx Chronic Kidney Disease: No - ENDOCRINE/METABOLIC Hx Endocrine Disorders: Yes (DM) - HEMATOLOGICAL/ONCOLOGICAL Hx AIDS: No Hx Human Immunodeficiency Virus (HIV): No - INTEGUMENTARY Hx Dermatological Problems: No - MUSCULOSKELETAL/RHEUMATOLOGICAL Hx Falls: Yes - GASTROINTESTINAL Hx Gastrointestinal Disorders: No - GENITOURINARY/GYNECOLOGICAL Hx Genitourinary Disorders: No Hx Prostate Problems: Yes - PSYCHIATRIC Hx Substance Use: No - SURGICAL HISTORY Hx Surgeries: Yes - ANESTHESIA Hx Anesthesia: Yes Hx Anesthesia Reactions: No Hx Malignant Hyperthermia: No Meds Allergies/Adverse Reactions: Allergies Allergy/AdvReac Type Severity Reaction Status Date / Time No Known Allergies Allergy Verified 06/02/18 18:28 Physical Exam - Respiratory Exam Respiratory Exam: NORMAL BREATHING PATTERN - Cardiovascular Exam Cardiovascular Exam: REGULAR RHYTHM - GI/Abdominal Exam GI & Abdominal Exam: Normal Bowel Sounds Results - Vital Signs Recent Vital Signs: Last Vital Signs Temp 98.7 F 06/23/18 15:40 Pulse 69 06/23/18 17:35 Resp 18 06/23/18 15:40 BP 116/66 06/23/18 17:35 Pulse Ox 99 06/23/18 19:58 - Labs Result Diagrams: 06/23/18 12:45 06/23/18 12:45 Labs: Laboratory Results - last 24 hr 06/23/18 06/23/18 12:45 12:45 WBC 9.8 RBC 2.68 L Hgb 8.2 L Hct 24.6 L MCV 91.8 MCH 30.6 MCHC 33.3 RDW 17.9 H Plt Count 444 H Sodium 135 Potassium 4.3 Chloride 102 Carbon Dioxide 25 Anion Gap 12 BUN 27 H Creatinine 1.1 Est GFR ( Amer) > 60 Est GFR (Non-Af Amer) > 60 Random Glucose 100 Calcium 8.5 Assessment & Plan - Assessment and Plan (Free Text) Assessment: Decondioning PT LUE weakness 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 Lennon catheter Flomax Urecholine Urology ID US Bladder wnl Cystoscopy done EGD Gastric polyps Anemia GI Bleed? Tx 2 U NIDDM CKD Diabetic Nephropathy creat 1.1 Hypertension Dyslipidemia - Date & Time Date: 06/23/18 Time: 22:22
[2018-06-24 06:44] LABS: BLOOD UREA NITROGEN 21 mg/dl (9-20); CALCIUM 8.5 mg/dL (8.4-10.2); GFR NON-AFRICAN AMERICAN > 60; HEMOGLOBIN 8.2 g/dL (12.0-18.0); MEAN CELL VOLUME 90.5 fl (80.0-94.0); MEAN CORPUSCULAR HEMOGLOBIN 30.6 pg (27.0-31.0); MEAN CORPUSCULAR HGB CONC 33.8 g/dL (33.0-37.0); RBC 2.69 Mil/uL (4.40-5.90); RED CELL DISTRIBUTION WIDTH 18.2 % (11.5-14.5); WHITE BLOOD COUNT 7.3 K/uL (4.8-10.8)
[2018-06-24] MEDS: Enoxaparin 40 mg Syringe SC SCH (10:00)
[2018-06-24] MEDS: Pantoprazole 40 mg EC Tab PO SCH (10:01)
[2018-06-24] MEDS: Bethanechol 50 MG TAB PO SCH ×3 (10:01→16:44)
[2018-06-24] MEDS: POLYETHYLENE GLYCOL 3350 17 GM/Dose PACKET PO SCH (10:01)
[2018-06-24] MEDS: Nystatin 100,000 Units/ml Oral Susp 5 ml UD PO SCH ×4 (10:01→21:18)
--- NOTE | 2018-06-24 12:57 | CP.PCM.PN ---
Subjective - Date & Time of Evaluation Date of Evaluation: 06/24/18 Time of Evaluation: 12:54 - Subjective Subjective: iI D NOTE PATIENT EXAMINED ,CHART REVIEWED' FULL CONSULT DICTATED CONTINUE CEFTRIAXONE Objective - Vital Signs/Intake and Output Vital Signs (last 24 hours): Temp Pulse Resp BP Pulse Ox 98.1 F 63 18 158/73 H 96 06/24/18 07:55 06/24/18 09:59 06/24/18 07:55 06/24/18 09:59 06/24/18 07:55 - Medications Medications: Current Medications Aspirin (Ecotrin) 81 mg PO DAILY [facility] Last Admin: 06/24/18 09:59 Dose: 81 mg Atorvastatin Calcium (Lipitor) 10 mg PO HS [facility] Last Admin: 06/23/18 21:28 Dose: 10 mg Bethanechol Chloride (Urecholine) 50 mg PO TID [facility] Last Admin: 06/24/18 10:01 Dose: 50 mg Carvedilol (Coreg) 12.5 mg PO BID [facility] Last Admin: 06/24/18 09:59 Dose: 12.5 mg Docusate Sodium (Colace) 100 mg PO DAILY PRN PRN Reason: Constipation Last Admin: 06/23/18 17:35 Dose: 100 mg Enoxaparin Sodium (Lovenox) 40 mg SC DAILY [facility] PRN Reason: Protocol Last Admin: 06/24/18 10:00 Dose: 40 mg Ferrous Sulfate (Feosol) 325 mg PO BID [facility] Last Admin: 06/24/18 09:59 Dose: 325 mg Ceftriaxone Sodium 1 gm/ (Sodium Chloride) 100 mls @ 100 mls/hr IVPB DAILY [facility] PRN Reason: Protocol Last Admin: 06/24/18 10:01 Dose: 100 mls/hr Levetiracetam (Keppra) 500 mg PO BID [facility] Last Admin: 06/24/18 10:00 Dose: 500 mg Metformin HCl (Glucophage) 500 mg PO TID [facility] Last Admin: 06/24/18 10:00 Dose: 500 mg Nystatin (Nystatin Oral Susp) 5 ml PO QID [facility] Last Admin: 06/24/18 10:01 Dose: 5 ml Pantoprazole Sodium (Protonix Ec Tab) 40 mg PO DAILY [facility] Last Admin: 06/24/18 10:01 Dose: 40 mg Polyethylene Glycol (Miralax) 17 gm PO DAILY [facility] Last Admin: 06/24/18 10:01 Dose: 17 gm Tamsulosin HCl (Flomax) 0.8 mg PO DAILY [facility] Last Admin: 06/24/18 10:00 Dose: 0.8 mg - Labs Labs: 06/24/18 05:50 06/24/18 05:50 PT 12.3 Seconds (9.8-13.1) 06/22/18 19:06 INR 1.1 06/22/18 19:06 APTT 24.6 Seconds (25.6-37.1) L 06/22/18 19:06
--- NOTE | 2018-06-24 20:23 | CP.PCM.PN ---
Subjective - Date & Time of Evaluation Date of Evaluation: 06/24/18 Time of Evaluation: 22:22 - Subjective Subjective: Above noted Objective - Vital Signs/Intake and Output Vital Signs (last 24 hours): Temp Pulse Resp BP Pulse Ox 98.5 F 66 20 126/69 96 06/24/18 16:04 06/24/18 16:43 06/24/18 16:04 06/24/18 16:43 06/24/18 16:04 - Medications Medications: Current Medications Aspirin (Ecotrin) 81 mg PO DAILY [facility] Last Admin: 06/24/18 09:59 Dose: 81 mg Atorvastatin Calcium (Lipitor) 10 mg PO HS [facility] Last Admin: 06/23/18 21:28 Dose: 10 mg Bethanechol Chloride (Urecholine) 50 mg PO TID [facility] Last Admin: 06/24/18 16:44 Dose: 50 mg Carvedilol (Coreg) 12.5 mg PO BID [facility] Last Admin: 06/24/18 16:43 Dose: 12.5 mg Docusate Sodium (Colace) 100 mg PO DAILY PRN PRN Reason: Constipation Last Admin: 06/23/18 17:35 Dose: 100 mg Enoxaparin Sodium (Lovenox) 40 mg SC DAILY [facility] PRN Reason: Protocol Last Admin: 06/24/18 10:00 Dose: 40 mg Ferrous Sulfate (Feosol) 325 mg PO BID [facility] Last Admin: 06/24/18 16:43 Dose: 325 mg Ceftriaxone Sodium 1 gm/ (Sodium Chloride) 100 mls @ 100 mls/hr IVPB DAILY [facility] PRN Reason: Protocol Last Admin: 06/24/18 10:01 Dose: 100 mls/hr Levetiracetam (Keppra) 500 mg PO BID [facility] Last Admin: 06/24/18 16:43 Dose: 500 mg Metformin HCl (Glucophage) 500 mg PO TID [facility] Last Admin: 06/24/18 16:43 Dose: 500 mg Nystatin (Nystatin Oral Susp) 5 ml PO QID [facility] Last Admin: 06/24/18 16:44 Dose: 5 ml Pantoprazole Sodium (Protonix Ec Tab) 40 mg PO DAILY [facility] Last Admin: 06/24/18 10:01 Dose: 40 mg Polyethylene Glycol (Miralax) 17 gm PO DAILY [facility] Last Admin: 06/24/18 10:01 Dose: 17 gm Tamsulosin HCl (Flomax) 0.8 mg PO DAILY [facility] Last Admin: 06/24/18 10:00 Dose: 0.8 mg - Labs Labs: 06/24/18 05:50 06/24/18 05:50 PT 12.3 Seconds (9.8-13.1) 06/22/18 19:06 INR 1.1 06/22/18 19:06 APTT 24.6 Seconds (25.6-37.1) L 06/22/18 19:06 - Respiratory Exam Respiratory Exam: NORMAL BREATHING PATTERN - Cardiovascular Exam Cardiovascular Exam: REGULAR RHYTHM - GI/Abdominal Exam GI & Abdominal Exam: Normal Bowel Sounds Assessment and Plan - Assessment and Plan (Free Text) Assessment: LUE weakness 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 Lennon catheter Flomax Urecholine Urology ID US Bladder wnl Cystoscopy done EGD Gastric polyps Anemia GI Bleed? Tx 2 U NIDDM CKD Diabetic Nephropathy creat 1.1 Hypertension Dyslipidemia
--- NOTE | 2018-06-25 00:16 | CON ---
Copied To: Yvan Leong MD Attending MD: Yvan Leong MD DATE: 06/24/2018 INFECTIOUS DISEASE CONSULT HISTORY OF PRESENT ILLNESS: The patient is a 77-year-old male with past medical history of diabetes, hypertension, cholesterolemia, and CVA who is presenting to the emergency room for evaluation of weakness and 's concern for a possible stroke as she noted some weakness. The patient has been hospitalized in December for a CVA, and he had a GI bleed in January. Last week, the patient had an UTI and was admitted for treatment with IV antibiotics, had apparently been discharged two days ago. states that he was reasonable until today when he seemed lethargic and tried to grab a glass of orange juice and drop it. The patient has an indwelling Lennon catheter, and when examined, he is flat but answers questions appropriately. He has some dizziness and weakness. PHYSICAL EXAMINATION: HEENT: Within normal limits. NECK: Supple. LUNGS: Showed some decreased breath sounds at both bases, but there is no respiratory distress. HEART: Regular sinus rhythm. ABDOMEN: Soft. Positive bowel sounds. BACK: There is no CVA tenderness. EXTREMITIES: There is no pedal edema or cellulitis in the lower extremities. LABORATORY DATA: EKG showed first-degree heart block. Micro, there was not any MRSA, nor his urine culture did show any positive bacterial growth in any of the cultures. CBC, admitted with a white count of 19 on 06/22/2018, today it is 7.3; platelets of 441; 81% polys; there were no bands. Creatinine was 1.4 to today where it is 1.1; GFR 49, today is greater than 60. LFTs are within normal limits. Toxicology is negative. There is no positive urine test but his original urine culture showed 248 microscopic wbc's and occasional urinary bacteria. The patient has been on Rocephin for over 24 hours and had this appreciable improvement with his white count. We would not change that and continue on Rocephin also. We would have evaluate for bladder dysfunction. Yvan Leong MD
--- NOTE | 2018-06-25 05:36 | CON ---
Copied To: Oleksandr Moore MD Attending MD: Oleksandr Moore MD DATE: 06/24/2018 NEUROLOGY CONSULTATION REASON FOR CONSULTATION: Weakness of the left upper extremity. HISTORY OF PRESENTING ILLNESS: The patient is a 77-year-old male who has been asked for evaluation of weakness of the left upper extremity. The patient had a stroke few months ago. It was a pontine infarct. The patient is apparently having fever over the last two days and noticed that his left upper extremity is weak. At the moment, he feels better. There is no more fever, and the weakness of the left upper extremity is better as well. He denies having any difficulty with swallowing. He walks with a walker. REVIEW OF SYSTEMS: Denies any headache, dizziness, chest pain, shortness of breath, abdominal pain, constipation, diarrhea, dysuria, cough, or sputum production. PAST MEDICAL HISTORY: Includes cerebrovascular accident with pontine infarct, diabetes mellitus, seizure disorder, and hypertension. MEDICATIONS: At home include Colace, Coreg, Urecholine, aspirin 81 mg once a day, Protonix, Flomax, Zocor, Glucophage, and Keppra 500 mg b.i.d. ALLERGIES: NO KNOWN DRUG ALLERGIES. SOCIAL HISTORY: He is a former smoker. Denies current smoking. Denies use of alcohol or illicit drugs. FAMILY HISTORY: Reviewed and noncontributory to the case. PHYSICAL EXAMINATION: GENERAL: The patient is an elderly male, lying on the bed, in no acute distress. VITAL SIGNS: His blood pressure is 126/69, heart rate is 66 per minute, breathing at a rate of 16 per minute, and temperature is 98.5 degrees Fahrenheit. HEENT: Head is normocephalic and atraumatic. NECK: Supple. There are no carotid bruits. LUNGS: Clear. CARDIOVASCULAR SYSTEM: S1 and S2 audible. No murmurs. ABDOMEN: Soft and nontender. Bowel sounds present. NEUROLOGIC EXAMINATION: Mental status: The patient is awake, alert, oriented to time, place, and person. Speech is fluent. Naming and repetition are normal. Memory and cognition appear intact. Cranial nerve examination: Pupils are 2 mm, bilaterally reactive to light. Visual alaniz are full. Extraocular movements are intact. There is no facial asymmetry. He is moving all four extremities symmetrically. Power appears 4/5 allover. Reflexes are 1+ and symmetrical. Plantars are downgoing bilaterally. Cerebellar examination: [id number] shows no dysmetria. Gait is deferred at the moment. LABORATORY DATA: Labs reviewed. WBC on admission was 19, today it is 7.3; hemoglobin of 8.2; hematocrit 24.4; and platelets of 441. His sodium is 138, potassium 4.2, chloride 106, carbon dioxide 25, BUN of 21, creatinine 1.1, and glucose of 96. He had a urinalysis which shows wbc's rare, bacteria occasional. The patient had a CT scan of the head done which showed chronic age-related changes and extensive encephalomalacia in the right hemisphere but no evidence of acute intracranial pathology. IMPRESSION: 1. Status post left upper extremity weakness which was likely secondary to exacerbation of his stroke symptoms. 2. History of cerebrovascular accident (pontine infarct). 3. Seizure disorder. 4. Gait dysfunction secondary to cerebrovascular accident. RECOMMENDATIONS: 1. The patient to be continued on aspirin 81 mg once a day. 2. The patient also to be continued on statin. 3. The patient to be continued on Keppra 500 mg twice a day. 4. The patient has no further focal weakness in his arms or legs. 5. The patient to have physical therapy for gait imbalance. 6. The patient to be continued on IV antibiotics as per Infectious Disease. 7. Please continue supportive care and other treatment. 8. No further neurological recommendations at present. Please call Neurology as needed. Thank you for the opportunity to participate in the care of this patient. Oleksandr Moore MD
[2018-06-25] MEDS: Enoxaparin 40 mg Syringe SC SCH (09:55)
[2018-06-25] MEDS: POLYETHYLENE GLYCOL 3350 17 GM/Dose PACKET PO SCH (09:55)
[2018-06-25] MEDS: Bethanechol 50 MG TAB PO SCH ×2 (09:55→13:08)
[2018-06-25] MEDS: Nystatin 100,000 Units/ml Oral Susp 5 ml UD PO SCH ×2 (09:55→13:08)
[2018-06-25] MEDS: Pantoprazole 40 mg EC Tab PO SCH (09:55)
[2018-06-25 14:12] VITALS: BP 141/72; PULSE 73; RESP 19; TEMP 97.9
--- NOTE | 2018-06-25 18:16 | CP.PCM.PN ---
Subjective - Date & Time of Evaluation Date of Evaluation: 06/25/18 Time of Evaluation: 22:22 - Subjective Subjective: Above noted Objective - Vital Signs/Intake and Output Vital Signs (last 24 hours): Temp Pulse Resp BP Pulse Ox 97.9 F 73 19 141/72 98 06/25/18 14:12 06/25/18 14:12 06/25/18 14:12 06/25/18 14:12 06/25/18 14:12 - Labs Labs: 06/24/18 05:50 06/24/18 05:50 PT 12.3 Seconds (9.8-13.1) 06/22/18 19:06 INR 1.1 06/22/18 19:06 APTT 24.6 Seconds (25.6-37.1) L 06/22/18 19:06 - Respiratory Exam Respiratory Exam: NORMAL BREATHING PATTERN - Cardiovascular Exam Cardiovascular Exam: REGULAR RHYTHM - GI/Abdominal Exam GI & Abdominal Exam: Normal Bowel Sounds Assessment and Plan - Assessment and Plan (Free Text) Assessment: LUE weakness 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 Tx 2 U NIDDM CKD Diabetic Nephropathy creat 1.1 Hypertension Dyslipidemia
[2018-06-26 21:53] VITALS: O2SAT 99
== END 2018-06-25 14:30 | disposition home or self-care (01) | DRG 699 ==
LOC: H.ER 18:21 → H.ERHOLD 20:25 → H.MEDSURG1 06-23 08:34 → OBSVTOIN 06-24 14:53
PROVIDERS: ADMIT Family Medicine Geriatric Medicine; ATTEND Family Medicine Geriatric Medicine
DX: T83.518A Infection and inflammatory reaction due to other urinary catheter, initial encounter (principal); N39.0 Urinary tract infection, site not specified; I69.354 Hemiplegia and hemiparesis following cerebral infarction affecting left non-dominant side; E86.0 Dehydration; N18.9 Chronic kidney disease, unspecified; I12.9 Hypertensive chronic kidney disease with stage 1 through stage 4 chronic kidney disease, or unspecified chronic kidney disease; K31.7 Polyp of stomach and duodenum; E11.22 Type 2 diabetes mellitus with diabetic chronic kidney disease; E11.21 Type 2 diabetes mellitus with diabetic nephropathy; N31.9 Neuromuscular dysfunction of bladder, unspecified; E78.5 Hyperlipidemia, unspecified; G40.909 Epilepsy, unspecified, not intractable, without status epilepticus; E78.00 Pure hypercholesterolemia, unspecified; R26.89 Other abnormalities of gait and mobility; Y84.6 Urinary catheterization as the cause of abnormal reaction of the patient, or of later complication, without mention of misadventure at the time of the procedure; Z79.84 Long term (current) use of oral hypoglycemic drugs; Z79.82 Long term (current) use of aspirin; Z87.891 Personal history of nicotine dependence

== ENCOUNTER 2018-07-07 17:56 | Inpatient (IN) | payer MEDICARE ==
[2018-07-07 17:57] VITALS: BMI 23.3
[2018-07-07] MEDS ORDERED: Sodium Chloride 0.9% 1,000 ML IV STA (18:48)
[2018-07-07 19:19] LABS: BASO # 0.1 K/uL (0.0-0.2); BASO % 0.8 % (0.0-2.0); EOS # 0.1 K/uL (0.0-0.7); EOS % 0.8 % (0.0-4.0); HEMOGLOBIN 10.1 g/dL (12.0-18.0); LYMPH # 1.3 K/uL (1.0-4.3); LYMPH % 10.3 % (20.0-40.0); MEAN CELL VOLUME 94.4 fl (80.0-94.0); MEAN CORPUSCULAR HEMOGLOBIN 31.2 pg (27.0-31.0); MEAN PLATELET VOLUME 7.8 fl (7.2-11.7); MONO # 0.3 K/uL (0.0-0.8); MONO % 2.8 % (0.0-10.0); NEUT # 10.5 K/uL (1.8-7.0); NEUT % 85.3 % (50.0-75.0); NRBC % 0.1 % (0.0-0.0); RBC 3.23 Mil/uL (4.40-5.90); RED CELL DISTRIBUTION WIDTH 20.1 % (11.5-14.5); WHITE BLOOD COUNT 12.3 K/uL (4.8-10.8)
[2018-07-07 19:34] LABS: VENOUS BLOOD GAS BASE EXCESS 0.6 mmol/L (0.0-2.0); VENOUS BLOOD GAS PCO2 47 mmHg (40-60); VENOUS BLOOD GAS PO2 19 mm/Hg (30-55); VENOUS BLOOD PH 7.36 (7.32-7.43)
[2018-07-07 19:40] LABS: URINE BACTERIA MOD (<OCC); URINE BILIRUBIN NEGATIVE (NEGATIVE); URINE BLOOD LARGE (NEGATIVE); URINE CLARITY CLOUDY (Clear); URINE COLOR RED (YELLOW); URINE GLUCOSE (UA) NEG (Normal); URINE HYALINE CAST 0-2 /hpf (0-2); URINE LEUKOCYTE ESTERASE MOD Leu/uL (Negative); URINE PROTEIN 100 mg/dL (NEGATIVE); URINE UROBILINOGEN 0.2-1.0 mg/dL (0.2-1.0)
--- NOTE | 2018-07-07 19:40 | ED PDOC ---
- Laboratory Results Result Diagrams: 07/09/18 05:20 07/09/18 05:20 - ECG O2 Sat by Pulse Oximetry: 100 (RA) Pulse Ox Interpretation: Normal Medical Decision Making Medical Decision Making: Time: 1899 --Patient signed out to this provider by Dr. Medina, pending labs, US and final dispo 21:20 Reviewed labs and US is pending. Discussed case with Dr. Taylor who is covering for Dr. Jade, patient's PMD. Dr. Taylor will admit patient. Scribe Attestation: Documented by Tamara Payne and Jaden Payne, acting as a scribe for Theo Carrera MD Provider Scribe Attestation: All medical record entries made by the Scribe were at my direction and personally dictated by me. I have reviewed the chart and agree that the record accurately reflects my personal performance of the history, physical exam, medical decision making, and the department course for this patient. I have also personally directed, reviewed, and agree with the discharge instructions and disposition. Disposition Discussed With : Carlos Taylor Doctor Will See Patient In The: Hospital Counseled Patient/Family Regarding: Studies Performed, Diagnosis - Clinical Impression Clinical Impression: Acute kidney injury, Hematuria, UTI (urinary tract infection), Sepsis - POA Present On Arrival: Cath Associated UTI - Disposition Disposition: Admitted as In-Patient Disposition Time: 20:30 Condition: FAIR
[2018-07-07] MEDS ORDERED: Piperacillin/Tazobact 3.375 GM in Sodium Chloride 0.9% 100 ML IVPB STA (19:46)
[2018-07-07 19:50] LABS: BLOOD UREA NITROGEN 28 mg/dl (9-20); CALCIUM 9.7 mg/dL (8.4-10.2); GFR NON-AFRICAN AMERICAN > 60
[2018-07-07] MEDS ORDERED: Albuterol 0.083% Inhal Sol (2.5 mg/3 mL) UD INH STA (19:56)
[2018-07-07] MEDS ORDERED: Insulin Regular 100 units/ml IV STA (19:56)
[2018-07-07] MEDS ORDERED: Dextrose 50% SYRINGE Inj (50 ml) IVP ONE (19:57)
--- NOTE | 2018-07-07 20:36 | ED PDOC ---
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 Patient had in home rehab today. Following rehab, patient had numerous large bowel movements (patient had been constipated for several days prior) following the last bowel movement, he became diaphoretic and weak. His notices that the urine in his Lennon catheter was bright red. On arrival to ED, patient remains diaphoretic and tremulous. Patient denies abdominal pain, penile pain, testicular pain, chest pain, shortness of breath, confusion or any other medical complaints. PMD: Dr. Jade Past Medical History Reviewed: Historical Data, Nursing Documentation, Vital Signs Vital Signs: Last Vital Signs Temp 97.8 F 07/08/18 19:28 Pulse 66 07/08/18 20:30 Resp 20 07/08/18 19:28 BP 144/67 07/08/18 19:28 Pulse Ox 100 07/08/18 23:42 - Medical History PMH: Anemia, CVA (2009, January 2018), Diabetes, HTN, Hypercholesterolemia, Seizures Denies: HIV, Chronic Kidney Disease - Family History Family History: States: Unknown Family Hx - Immunization History Hx Tetanus Toxoid Vaccination: No Hx Influenza Vaccination: Yes Hx Pneumococcal Vaccination: Yes - Home Medications Home Medications: Ambulatory Orders Medication Instructions Recorded Carvedilol [Coreg] 12.5 mg PO BID 01/27/17 levETIRAcetam [Keppra] 500 mg PO BID 01/27/17 Pantoprazole [Protonix EC Tab] 40 mg PO DAILY ect 02/05/18 metFORMIN [glucOPHAGE] 500 mg PO TID tab 02/15/18 Simvastatin [Zocor] 20 mg PO HS 06/02/18 Tamsulosin [Flomax] 0.8 mg PO DAILY 06/02/18 Polyethylene Glycol 3350 [Miralax] 17 gm PO DAILY #30 packet 06/06/18 Aspirin [Ecotrin] 81 mg PO DAILY [facility]ec 06/11/18 Bethanechol [Urecholine] 50 mg PO TID tab 06/11/18 Docusate [Colace] 100 mg PO DAILY PRN cap 06/11/18 - Allergies Allergies/Adverse Reactions: Allergies Allergy/AdvReac Type Severity Reaction Status Date / Time No Known Allergies Allergy Verified 06/02/18 18:28 Review of Systems ROS Statement: Except As Marked, All Systems Reviewed And Found Negative Constitutional: Positive for: Sweats Genitourinary Male: Positive for: Hematuria Physical Exam - Reviewed Nursing Documentation Reviewed: Yes Vital Signs Reviewed: Yes - Physical Exam Appears: Positive for: Well, No Acute Distress (mildly tremulous) Skin: Positive for: Diaphoresis. Negative for: Warm (cool to touch ) Cardiovascular/Chest: Positive for: Regular Rate, Rhythm. Negative for: Murmur Respiratory: Positive for: Normal Breath Sounds. Negative for: Respiratory Distress Gastrointestinal/Abdominal: Positive for: Normal Exam, Soft, Other (Lennon catheter in place but foul smell and yellowish film on retraction of foreskin, no blood or drainage from ureteral medias). Negative for: Tenderness Extremity: Negative for: Swelling Neurologic/Psych: Positive for: Alert, Oriented (x3) - Laboratory Results Result Diagrams: 07/08/18 04:20 07/08/18 04:20 - ECG O2 Sat by Pulse Oximetry: 100 (RA) Pulse Ox Interpretation: Normal Medical Decision Making Medical Decision Making: Time: 1846 Workup for hematuria; diaphoresis caused by cardiac v vasovagal origin Plan: --IV fluids --EKG --Cardiac enzymes --UA --Urine culture --Renal and bladder US Time: 19:00 --Patient endorsed to Dr. Frazier Scribe Attestation: Documented by Tamara Payne, acting as a scribe for Edwina Medina MD Provider Scribe Attestation: All medical record entries made by the Scribe were at my direction and personally dictated by me. I have reviewed the chart and agree that the record accurately reflects my personal performance of the history, physical exam, medical decision making, and the department course for this patient. I have also personally directed, reviewed, and agree with the discharge instructions and disposition. Disposition - Clinical Impression Clinical Impression: Acute kidney injury, Hematuria - Disposition Disposition: Transfer of Care Disposition Time: 19:00 Condition: STABLE
[2018-07-07] MEDS ORDERED: Insulin Regular 100 units/ml ONE (20:39)
[2018-07-07] MEDS ORDERED: Albuterol 0.083% Inhal Sol (2.5 mg/3 mL) UD ONE (20:39)
[2018-07-07] MEDS ORDERED: Dextrose 50% SYRINGE Inj (50 ml) ONE (20:40)
[2018-07-07] MEDS ORDERED: Piperacillin/Tazobact 3.375 gm Inj IVPB ONE (20:40)
[2018-07-07 22:39] LABS: VENOUS BLOOD GAS BASE EXCESS 0.2 mmol/L (0.0-2.0); VENOUS BLOOD GAS PCO2 51 mmHg (40-60); VENOUS BLOOD GAS PO2 20 mm/Hg (30-55); VENOUS BLOOD PH 7.33 (7.32-7.43)
[2018-07-08] MEDS ORDERED: Piperacillin/Tazobact 3.375 GM in Sodium Chloride 0.9% 100 ML IVPB SCH (01:00)
[2018-07-08] MEDS: Piperacillin/Tazobact 3.375 GM in Sodium Chloride 0.9% 100 ML IVPB SCH ×3 (04:10→20:06)
[2018-07-08 05:11] LABS: MEAN CELL VOLUME 94.4 fl (80.0-94.0); MEAN CORPUSCULAR HEMOGLOBIN 31.3 pg (27.0-31.0); MEAN CORPUSCULAR HGB CONC 33.2 g/dL (33.0-37.0); RBC 2.86 Mil/uL (4.40-5.90); RED CELL DISTRIBUTION WIDTH 20.2 % (11.5-14.5); WHITE BLOOD COUNT 8.2 K/uL (4.8-10.8)
[2018-07-08 05:30] LABS: ALB/GLOB RATIO 0.9 (1.0-2.1); ALT/SGPT 19 U/L (21-72); AST/SGOT 20 U/L (17-59); BLOOD UREA NITROGEN 25 mg/dl (9-20); CALCIUM 8.7 mg/dL (8.4-10.2); GFR NON-AFRICAN AMERICAN > 60
--- NOTE | 2018-07-08 07:32 | CARD ---
APPROVED REPORT Date of service: 07/07/2018 EKG Measurement Heart [id number] MD [id number] <Conclusion> Normal sinus rhythm Normal ECG
--- NOTE | 2018-07-08 08:58 | RAD ---
Date of service: 07/07/2018 HISTORY: possible admission COMPARISON: Frontal chest radiograph 06/22/2018. FINDINGS: LUNGS: Two black lines at the left hemithorax simulate pneumothoraces but are skin folds. Vessels are identified traversing these lines. No active pulmonary disease. PLEURA: No significant pleural effusion identified, no pneumothorax apparent. CARDIOVASCULAR: Normal. OSSEOUS STRUCTURES: No significant abnormalities. VISUALIZED UPPER ABDOMEN: Normal. OTHER FINDINGS: None. IMPRESSION: No interval acute cardiopulmonary disease appreciated.
--- NOTE | 2018-07-08 09:06 | CP.PCM.HP ---
<Swapnil Barcenas - Last Filed: 07/08/18 17:48> History of Present Illness - History of Present Illness History of Present Illness: Pt seen and examined at bedside with Dr. Taylor. 77 yo M with pmhx of CVA, htn, DM, seizures presented to the ED with weakness and hematuria. Weakness after home rehab followed by bowel movements. notice red urine in bronson at home. PMD: Dr. Jade pmhx: cva, htn, dm, seizures NKDA Present on Admission - Present on Admission Any Indicators Present on Admission: Yes History of DVT/PE: Yes Urinary Catheter: Yes Review of Systems - Constitutional Constitutional: As Per HPI, Weakness - Cardiovascular Cardiovascular: absent: Chest Pain - Respiratory Respiratory: Cough. absent: Dyspnea - Gastrointestinal Gastrointestinal: absent: Abdominal Pain - Genitourinary Genitourinary: Hematuria Past Patient History - Past Medical History & Family History Past Medical History?: Yes - Past Social History Smoking Status: Former Smoker Alcohol: None Drugs: Denies Home Situation {Lives}: With Family - CARDIAC Hx Cardiac Disorders: Yes Hx Hypertension: Yes - PULMONARY Hx Respiratory Disorders: No - NEUROLOGICAL Hx Neurological Disorder: Yes HX Cerebrovascular Accident: Yes Hx Seizures: Yes - HEENT Hx HEENT Problems: No - RENAL Hx Chronic Kidney Disease: No - ENDOCRINE/METABOLIC Hx Endocrine Disorders: Yes Hx Diabetes Mellitus Type 2: Yes - HEMATOLOGICAL/ONCOLOGICAL Hx Blood Disorders: Yes Hx Anemia: Yes Hx Blood Transfusions: Yes Hx Human Immunodeficiency Virus (HIV): No - INTEGUMENTARY Hx Dermatological Problems: No - MUSCULOSKELETAL/RHEUMATOLOGICAL Hx Musculoskeletal Disorders: Yes Hx Falls: No - GASTROINTESTINAL Hx Gastrointestinal Disorders: Yes Hx Constipation: Yes - GENITOURINARY/GYNECOLOGICAL Hx Genitourinary Disorders: Yes Hx Prostate Problems: Yes Other/Comment: urinary retention - PSYCHIATRIC Hx Psychophysiologic Disorder: No Hx Substance Use: No - SURGICAL HISTORY Hx Surgeries: No - ANESTHESIA Hx Anesthesia: No Hx Anesthesia Reactions: No Hx Malignant Hyperthermia: No Has any member of the family had a problem w/ anesthesia?: No Meds Allergies/Adverse Reactions: Allergies Allergy/AdvReac Type Severity Reaction Status Date / Time No Known Allergies Allergy Verified 06/02/18 18:28 Physical Exam - Constitutional Appears: Non-toxic, No Acute Distress - Eye Exam Eye Exam: EOMI - Respiratory Exam Respiratory Exam: Clear to Auscultation Bilateral, NORMAL BREATHING PATTERN. absent: Wheezes - Cardiovascular Exam Cardiovascular Exam: +S1, +S2 - GI/Abdominal Exam GI & Abdominal Exam: Normal Bowel Sounds, Soft. absent: Tenderness - Neurological Exam Neurological exam: Alert, CN II-XII Intact, Oriented x3 - Psychiatric Exam Psychiatric exam: Normal Affect, Normal Mood Results - Vital Signs Recent Vital Signs: Last Vital Signs Temp 97.9 F 07/08/18 08:14 Pulse 70 07/08/18 08:14 Resp 20 07/08/18 08:14 BP 134/67 07/08/18 08:14 Pulse Ox 96 07/08/18 08:14 - Labs Result Diagrams: 07/08/18 04:20 07/08/18 04:20 Labs: Laboratory Results - last 24 hr 07/07/18 07/07/18 07/07/18 18:58 19:13 19:13 WBC 12.3 H D RBC 3.23 L Hgb 10.1 L Hct 30.5 L MCV 94.4 H D MCH 31.2 H MCHC 33.0 RDW 20.1 H Plt Count 477 H MPV 7.8 Neut % (Auto) 85.3 H Lymph % (Auto) 10.3 L [place] % (Auto) 2.8 Eos % (Auto) 0.8 Baso % (Auto) 0.8 Neut # (Auto) 10.5 H Lymph # (Auto) 1.3 [place] # (Auto) 0.3 Eos # (Auto) 0.1 Baso # (Auto) 0.1 PT INR APTT pO2 VBG pH VBG pCO2 VBG HCO3 VBG Total CO2 VBG O2 Sat (Calc) VBG Base Excess VBG Potassium Glucose Lactate FiO2 Crit Value Called To Crit Value Called By Crit Value Read Back Blood Gas Notified Time Sodium 144 Potassium 5.8 H Chloride 108 H Carbon Dioxide 26 Anion Gap 16 BUN 28 H Creatinine 1.1 Est GFR ( Amer) > 60 Est GFR (Non-Af Amer) > 60 POC Glucose (mg/dL) 133 H Random Glucose 143 H Calcium 9.7 Total Bilirubin AST ALT Alkaline Phosphatase Troponin I 0.0300 Total Protein Albumin Globulin Albumin/Globulin Ratio Venous Blood Potassium Urine Color Urine Clarity Urine pH Ur Specific Lindsay Urine Protein Urine Glucose (UA) Urine Ketones Urine Blood Urine Nitrate Urine Bilirubin Urine Urobilinogen Ur Leukocyte Esterase Urine RBC (Auto) Urine Microscopic WBC Urine Bacteria Hyaline Casts 07/07/18 07/07/18 07/07/18 19:13 19:25 19:27 WBC RBC Hgb Hct MCV MCH MCHC RDW Plt Count MPV Neut % (Auto) Lymph % (Auto) [place] % (Auto) Eos % (Auto) Baso % (Auto) Neut # (Auto) Lymph # (Auto) [place] # (Auto) Eos # (Auto) Baso # (Auto) PT 11.0 INR 1.0 APTT 43.0 H pO2 19 L VBG pH 7.36 VBG pCO2 47 VBG HCO3 23.5 VBG Total CO2 28.0 VBG O2 Sat (Calc) 33.9 L VBG Base Excess 0.6 VBG Potassium 6.4 H* Glucose 147 H Lactate 2.2 H FiO2 21.0 Crit Value Called To Fela orellana Crit Value Called By 23 Crit Value Read Back Y Blood Gas Notified Time 1933 Sodium 140.0 Potassium Chloride 110.0 H Carbon Dioxide Anion Gap BUN Creatinine Est GFR ( Amer) Est GFR (Non-Af Amer) POC Glucose (mg/dL) Random Glucose Calcium Total Bilirubin AST ALT Alkaline Phosphatase Troponin I Total Protein Albumin Globulin Albumin/Globulin Ratio Venous Blood Potassium 6.4 H* Urine Color Red Urine Clarity Cloudy Urine pH 5.0 Ur Specific Lindsay 1.012 Urine Protein 100 Urine Glucose (UA) Neg Urine Ketones Negative Urine Blood Large Urine Nitrate Negative Urine Bilirubin Negative Urine Urobilinogen 0.2-1.0 Ur Leukocyte Esterase Mod Urine RBC (Auto) 9165 H Urine Microscopic WBC 269 H Urine Bacteria Mod H Hyaline Casts 0-2 07/07/18 07/08/18 07/08/18 22:30 04:20 04:20 WBC 8.2 RBC 2.86 L Hgb 9.0 L Hct 27.0 L MCV 94.4 H MCH 31.3 H MCHC 33.2 RDW 20.2 H Plt Count 379 MPV Neut % (Auto) Lymph % (Auto) [place] % (Auto) Eos % (Auto) Baso % (Auto) Neut # (Auto) Lymph # (Auto) [place] # (Auto) Eos # (Auto) Baso # (Auto) PT INR APTT pO2 20 L VBG pH 7.33 VBG pCO2 51 VBG HCO3 23.2 VBG Total CO2 28.5 H VBG O2 Sat (Calc) 35.0 L VBG Base Excess 0.2 VBG Potassium 4.8 Glucose 125 H Lactate 1.9 FiO2 21.0 Crit Value Called To Crit Value Called By Crit Value Read Back Blood Gas Notified Time Sodium 142.0 140 Potassium 4.4 Chloride 110.0 H 108 H Carbon Dioxide 26 Anion Gap 10 BUN 25 H Creatinine 1.1 Est GFR ( Amer) > 60 Est GFR (Non-Af Amer) > 60 POC Glucose (mg/dL) Random Glucose 100 Calcium 8.7 Total Bilirubin 0.1 L AST 20 ALT 19 L Alkaline Phosphatase 83 Troponin I Total Protein 6.3 Albumin 3.0 L Globulin 3.3 Albumin/Globulin Ratio 0.9 L Venous Blood Potassium 4.8 Urine Color Urine Clarity Urine pH Ur Specific Lindsay Urine Protein Urine Glucose (UA) Urine Ketones Urine Blood Urine Nitrate Urine Bilirubin Urine Urobilinogen Ur Leukocyte Esterase Urine RBC (Auto) Urine Microscopic WBC Urine Bacteria Hyaline Casts Assessment & Plan - Assessment and Plan (Free Text) Plan: 77 yo M with pmhx of CVA, htn, DM, seizures presented to the ED with weakness and hematuria. Hematuria is grossly improved Urology: Dr. Stacy: recommendations appreciated Pending cultures: blood and urine PT eval and treat Continue treatment/care as ordered case dw Dr. Brandon Barcenas MD PGY2 <Carlos Taylor - Last Filed: 07/10/18 07:36> Results - Vital Signs Recent Vital Signs: Last Vital Signs Temp 97.7 F 07/09/18 15:37 Pulse 65 07/09/18 15:37 Resp 20 07/09/18 15:37 BP 156/76 H 07/09/18 15:37 Pulse Ox 100 07/09/18 16:52 - Labs Result Diagrams: 07/09/18 05:20 07/09/18 05:20 Labs: Laboratory Results - last 24 hr 07/09/18 07/09/18 07/09/18 09:08 09:08 09:08 Retic Count 2.4 H D Iron 37 L TIBC 219 L % Saturation 17 L Ferritin 250.0 Vitamin B12 394 Folate 8.5 Assessment & Plan - Assessment and Plan (Free Text) Plan: Patient was personally seen and examined by me in rounds with residents. Available labs and diagnostic data reviewed. Case, Patient's condition and management plan discussed with residents in rounds. Agree with resident's progress note. Plan: As ordered.
[2018-07-08] MEDS: Bethanechol 50 MG TAB PO SCH ×3 (09:11→17:03)
[2018-07-08] MEDS: Pantoprazole 40 mg EC Tab PO SCH (09:11)
[2018-07-08] MEDS: POLYETHYLENE GLYCOL 3350 17 GM/Dose PACKET PO SCH (09:12)
--- NOTE | 2018-07-08 12:29 | US ---
Date of service: 07/07/2018 PROCEDURE: Ultrasound of the Kidneys HISTORY: gross hematuria with bronson COMPARISON: 02/02/2018 renal ultrasound. 06/02/2018 CT abdomen and pelvis. TECHNIQUE: Sonogram of the kidneys. FINDINGS: RIGHT KIDNEY: Measures: 4.2 x 4.3 x 10.4 cm. Normal in size, contour and echogenicity. No stone, solid mass lesion or hydronephrosis visualized. LEFT KIDNEY: Measures: 4.1 x 4.9 x 10.7 cm. Normal in size, contour and echogenicity. No stone, solid mass lesion or hydronephrosis visualized. OTHER FINDINGS: Bronson catheter identified within the urinary bladder. IMPRESSION: Unremarkable renal sonogram.No significant interval change compared to the prior examination(s). Concordant findings (preliminary report) provided by Jose.
--- NOTE | 2018-07-08 12:30 | US ---
Date of service: 07/07/2018 PROCEDURE: Ultrasound of the Bladder HISTORY: gross hematuria with bronson COMPARISON: None available. TECHNIQUE: Sonographic evaluation of the bladder was performed. FINDINGS: Lateral soft thickening likely related to nondistended state. A Bronson catheter is noted. No free fluid in pelvis. Prevoid Volume: 220 cc. Post void residual: 12.8 cc. Ureteral jets are not visible IMPRESSION: Thickened bladder wall likely related to underfilling. No focal findings identified. Bronson catheter identified in satisfactory position. Concordant findings (preliminary report) provided by [facility].
[2018-07-09] MEDS: Piperacillin/Tazobact 3.375 GM in Sodium Chloride 0.9% 100 ML IVPB SCH ×2 (03:54→12:47)
[2018-07-09 06:21] LABS: HEMOGLOBIN 8.5 g/dL (12.0-18.0); MEAN CELL VOLUME 94.5 fl (80.0-94.0); MEAN CORPUSCULAR HEMOGLOBIN 31.6 pg (27.0-31.0); MEAN CORPUSCULAR HGB CONC 33.4 g/dL (33.0-37.0); RBC 2.7 Mil/uL (4.40-5.90); RED CELL DISTRIBUTION WIDTH 20.4 % (11.5-14.5); WHITE BLOOD COUNT 6.5 K/uL (4.8-10.8)
[2018-07-09 06:34] LABS: BLOOD UREA NITROGEN 19 mg/dl (9-20); CALCIUM 8.7 mg/dL (8.4-10.2); GFR NON-AFRICAN AMERICAN > 60
[2018-07-09 08:37] VITALS: RESP 20
[2018-07-09] MEDS: Bethanechol 50 MG TAB PO SCH ×2 (09:23→12:47)
[2018-07-09] MEDS: Pantoprazole 40 mg EC Tab PO SCH (09:24)
[2018-07-09] MEDS: POLYETHYLENE GLYCOL 3350 17 GM/Dose PACKET PO SCH (09:26)
[2018-07-09 09:34] LABS: IRON 37 ug/dL (49-181)
[2018-07-09 09:43] LABS: % IRON SATURATION 17 % (20-55); TOTAL IRON BINDING CAPACITY 219 ug/dL (250-450)
--- NOTE | 2018-07-09 13:15 | CP.PCM.PCO ---
Assessment & Plan - Assessment and Plan (Free Text) Assessment: pt. doing well ; denies sob, cp, fever, chills, n/v\d Lennon draining clear , yellow urine Discussed case with - patient cleared for discharge to Home today by and pt. to cont. MAcorobid 100 mg po bid x 4 weeks Rx sent to [facility] pharmacy f/u with on Saturday above d/w patient's
--- NOTE | 2018-07-09 13:51 | PN ---
DATE: 07/09/2018 SUBJECTIVE: The patient seen and examined. Interim events noted. The patient remains in progressive care unit with telemetry monitoring, awake, responsive, feels okay. Denies any specific complaint. No chest pain, shortness of breath or any urinary symptoms. of Lennon catheter. PHYSICAL EXAMINATION: GENERAL: The patient is in no acute distress. VITAL SIGNS: Stable. HEART: S1 and S2, normal and regular. LUNGS: Good bilateral air exchange. ABDOMEN: Soft and nontender. EXTREMITIES: No edema. No calf swelling. No tenderness. No acute ischemia. FRONT DESK SPECIALIST: Exam is essentially unchanged. DIAGNOSTIC DATA: Available diagnostic data reviewed. Lennon catheter is draining clear urine without any gross hematuria. Urology consult is pending. ASSESSMENT AND PLAN: Overall, the patient's general medical condition is stable. Plan as ordered. Carlos Taylor MD
[2018-07-09 15:38] VITALS: BP 156/76; PULSE 65; TEMP 97.7; O2SAT 100
--- NOTE | 2018-07-09 20:23 | CP.PCM.PN ---
Subjective - Date & Time of Evaluation Date of Evaluation: 07/09/18 Time of Evaluation: 22:22 - Subjective Subjective: Above noted Objective - Vital Signs/Intake and Output Vital Signs (last 24 hours): Temp Pulse Resp BP Pulse Ox 97.7 F 65 20 156/76 H 100 07/09/18 15:37 07/09/18 15:37 07/09/18 15:37 07/09/18 15:37 07/09/18 16:52 - Labs Labs: 07/09/18 05:20 07/09/18 05:20 PT 11.0 Seconds (9.8-13.1) 07/07/18 19:13 INR 1.0 07/07/18 19:13 APTT 43.0 Seconds (25.6-37.1) H 07/07/18 19:13 - Respiratory Exam Respiratory Exam: NORMAL BREATHING PATTERN - Cardiovascular Exam Cardiovascular Exam: Tachycardia, REGULAR RHYTHM - GI/Abdominal Exam GI & Abdominal Exam: Normal Bowel Sounds Assessment and Plan - Assessment and Plan (Free Text) Assessment: UTI Hematuria Indwelling bronson catheter As per Urology Cont Bronson Abx prophylaxis x 4 weeks\ Anemia ROM chronic Fe Cont ASA See notes last admission
[2018-07-09 22:47] LABS: FOLATE 8.5 ng/mL
== END 2018-07-09 16:10 | disposition home or self-care (01) | DRG 700 ==
LOC: H.ER 17:56 → H.ERHOLD 20:50 → H.TEL 22:48
PROVIDERS: ADMIT Internal Medicine; ATTEND Internal Medicine
DX: T83.511A Infection and inflammatory reaction due to indwelling urethral catheter, initial encounter (principal); N39.0 Urinary tract infection, site not specified; Z86.73 Personal history of transient ischemic attack (TIA), and cerebral infarction without residual deficits; E11.9 Type 2 diabetes mellitus without complications; I10 Essential (primary) hypertension; E78.00 Pure hypercholesterolemia, unspecified; R31.9 Hematuria, unspecified; Z87.891 Personal history of nicotine dependence; D50.9 Iron deficiency anemia, unspecified; Y84.6 Urinary catheterization as the cause of abnormal reaction of the patient, or of later complication, without mention of misadventure at the time of the procedure; G40.909 Epilepsy, unspecified, not intractable, without status epilepticus

== ENCOUNTER 2018-08-18 14:29 | Inpatient (IN) | payer MEDICARE ==
[2018-08-18 14:29] VITALS: BMI 23.3
[2018-08-18] MEDS ORDERED: Albuterol-Ipratrop 3 mg / 0.5 (3 ml) UD IH STA (14:59)
[2018-08-18] MEDS ORDERED: Albuterol-Ipratrop 3 mg / 0.5 (3 ml) UD ONE (15:06)
--- NOTE | 2018-08-18 15:10 | ED PDOC ---
HPI: CCC, URI, Sore Throat Time Seen by Provider: 08/18/18 14:58 Chief Complaint (Nursing): Respiratory Distress Chief Complaint (Provider): Cough History Per: Patient, Family History/Exam Limitations: no limitations Onset/Duration Of Symptoms: Days (x3) Additional Complaint(s): 78 y/o male brought in by for evaluation of a cough and congestion, onset three days ago. states symptoms worsened this morning. Patient has a PMHx of a CVA and is seen at home by a Physical Therapist. Pulse Oximeter at home was low thus prompting to bring the patient to the ED. Denies chest pain and shortness of breath. PMD: Anthony Moreno Past Medical History Vital Signs: Last Vital Signs Temp 97 F L 08/18/18 14:30 Pulse 106 H 08/18/18 14:30 Resp 18 08/18/18 14:30 BP 126/76 08/18/18 14:30 Pulse Ox 76 L 08/18/18 14:30 - Medical History PMH: Anemia, CVA (2009, January 2018), Diabetes, HTN, Hypercholesterolemia, Seizures Denies: HIV, Chronic Kidney Disease - Surgical History Surgical History: No Surg Hx - Family History Family History: States: Unknown Family Hx - Immunization History Hx Tetanus Toxoid Vaccination: No Hx Influenza Vaccination: Yes Hx Pneumococcal Vaccination: Yes - Home Medications Home Medications: Ambulatory Orders Medication Instructions Recorded Carvedilol [Coreg] 12.5 mg PO BID 01/27/17 levETIRAcetam [Keppra] 500 mg PO BID 01/27/17 Pantoprazole [Protonix EC Tab] 40 mg PO DAILY ect 02/05/18 metFORMIN [glucOPHAGE] 500 mg PO TID tab 02/15/18 Simvastatin [Zocor] 20 mg PO HS 06/02/18 Tamsulosin [Flomax] 0.8 mg PO DAILY 06/02/18 Aspirin [Ecotrin] 81 mg PO DAILY tabec 06/11/18 Docusate [Colace] 100 mg PO DAILY PRN cap 06/11/18 Ferrous Sulfate [Feosol] 325 mg PO DAILY 08/18/18 Polyethylene Glycol 3350 [Miralax] 17 gm PO DAILY PRN 08/18/18 - Allergies Allergies/Adverse Reactions: Allergies Allergy/AdvReac Type Severity Reaction Status Date / Time No Known Allergies Allergy Verified 06/02/18 18:28 Review of Systems ROS Statement: Except As Marked, All Systems Reviewed And Found Negative Constitutional: Positive for: Other (Low Pulse Ox) ENT: Positive for: Nose Congestion Cardiovascular: Negative for: Chest Pain Respiratory: Positive for: Cough. Negative for: Shortness of Breath Physical Exam - Reviewed Nursing Documentation Reviewed: Yes Vital Signs Reviewed: Yes - Physical Exam Appears: Positive for: No Acute Distress Head Exam: Positive for: ATRAUMATIC Skin: Positive for: Normal Color, Warm, Dry Eye Exam: Positive for: Normal appearance, EOMI, PERRL Neck: Positive for: Normal, Painless ROM Cardiovascular/Chest: Positive for: Regular Rate, Rhythm. Negative for: Murmur Respiratory: Positive for: Rhonchi (Scattered rhonchi). Negative for: Wheezing, Respiratory Distress Gastrointestinal/Abdominal: Positive for: Normal Exam, Soft. Negative for: Tenderness Extremity: Positive for: Normal ROM, Other (5/5 strength bilaterally). Negative for: Tenderness, Swelling Neurologic/Psych: Positive for: Alert, Oriented (x3) - Laboratory Results Result Diagrams: 08/18/18 15:02 08/18/18 15:02 - ECG O2 Sat by Pulse Oximetry: 76 (RA) Pulse Ox Interpretation: Normal Medical Decision Making Medical Decision Making: Time: 1501 Plan: -- VBG -- CMP -- EKG -- CBC with Differentials -- CXR Portable -- Duoneb 3mg/0.5mg (3ml) UD 3 ml INH -- Blood Culture -- Peak Flow Pre/Post Tx Scribe Attestation: Documented by Herminio Chavez, acting as a scribe for Luis Manuel Muñoz MD. Provider Scribe Attestation: All medical record entries made by the Scribe were at my direction and personal ly dictated by me. I have reviewed the chart and agree that the record accurately reflects my personal performance of the history, physical exam, medical decision making, and the department course for this patient. I have also personally directed, reviewed, and agree with the discharge instructions and disposition. Disposition - Clinical Impression Clinical Impression: Hypoxemia - Patient ED Disposition Is Patient to be Admitted: Yes - Disposition Disposition Time: 16:19 Condition: FAIR Forms: [employer] (Chinese) - Pt Status Changed To: Hospital Disposition Of: Inpatient - Admit Certification Admit to Inpatient:: After my assessment, the patient will require hospitalization for at least two midnights. This is because of the severity of symptoms shown, intensity of services needed, and/or the medical risk in this patient being treated as an outpatient. - POA Present On Arrival: None
[2018-08-18 15:29] LABS: BASO # 0.1 K/uL (0.0-0.2); BASO % 0.5 % (0.0-2.0); EOS # 0.2 K/uL (0.0-0.7); EOS % 1.7 % (0.0-4.0); HEMOGLOBIN 11.8 g/dL (12.0-18.0); LYMPH # 1.5 K/uL (1.0-4.3); LYMPH % 14.7 % (20.0-40.0); MEAN CORPUSCULAR HEMOGLOBIN 31.8 pg (27.0-31.0); MEAN CORPUSCULAR HGB CONC 33.4 g/dL (33.0-37.0); MEAN PLATELET VOLUME 7.2 fl (7.2-11.7); MONO # 0.4 K/uL (0.0-0.8); MONO % 4.3 % (0.0-10.0); NEUT # 7.9 K/uL (1.8-7.0); NEUT % 78.8 % (50.0-75.0); RBC 3.71 Mil/uL (4.40-5.90); RED CELL DISTRIBUTION WIDTH 16.2 % (11.5-14.5); WHITE BLOOD COUNT 10.1 K/uL (4.8-10.8)
[2018-08-18 15:35] LABS: ALBUMIN 3.7 g/dL (3.5-5.0); CALCIUM 9.3 mg/dL (8.4-10.2)
[2018-08-18 16:21] LABS: VENOUS BLOOD GAS BASE EXCESS -0.4 mmol/L (0.0-2.0); VENOUS BLOOD GAS PCO2 48 mmHg (40-60); VENOUS BLOOD GAS PO2 20 mm/Hg (30-55); VENOUS BLOOD PH 7.34 (7.32-7.43)
[2018-08-18] MEDS ORDERED: Iodixanol 320 MG/ML 100 ML BOTTLE IV ONE (16:21)
[2018-08-18] MEDS ORDERED: Sodium Chloride 0.9% 50 ML IV ONE (16:21)
[2018-08-18] MEDS ORDERED: Enoxaparin 60 mg Syringe SC ONE (16:45)
--- NOTE | 2018-08-18 17:00 | RAD ---
Date of service: 08/18/2018 HISTORY: cough COMPARISON: Chest radiograph 07/07/2018. FINDINGS: LUNGS: No active pulmonary disease. PLEURA: No significant pleural effusion identified, no pneumothorax apparent. CARDIOVASCULAR: No atherosclerotic calcification present Normal. OSSEOUS STRUCTURES: No significant abnormalities. VISUALIZED UPPER ABDOMEN: Normal. OTHER FINDINGS: None. IMPRESSION: No interval acute cardiopulmonary disease appreciated.
--- NOTE | 2018-08-18 17:18 | CT ---
Date of service: 08/18/2018 PROCEDURE: CT Chest with contrast (Pulmonary Angiogram) HISTORY: Hypoxemia COMPARISON: None available. TECHNIQUE: Axial computed tomography images were obtained of the chest in the pulmonary arterial phase of enhancement. Coronal and sagittal reformatted images were created and reviewed. Intravenous contrast dose: 85 mL Visipaque 320 Radiation dose: Total exam DLP = 324.84 mGy-cm. This CT exam was performed using one or more of the following dose reduction techniques: Automated exposure control, adjustment of the mA and/or kV according to patient size, and/or use of iterative reconstruction technique. FINDINGS: PULMONARY ARTERIES: Extensive filling defect throughout the right and left main lobar pulmonary arteries. Consistent with pulmonary embolism. No central saddle embolus identified. AORTA: No acute findings. No thoracic aortic aneurysm. There is atherosclerotic calcification of the aortic arch and descending thoracic aorta. LUNGS: Unremarkable. No nodule, mass or pulmonary consolidation. PLEURAL SPACES: Unremarkable. No effusion or pneumothorax. HEART: Normal heart size. There is straightening of the interventricular septum indicating possible right ventricular strain. Correlate with lab trocar degree M. There is dilatation of the main pulmonary artery to a diameter of approximately 3.8 cm which may correlate with pulmonary arterial hypertension. LYMPH NODES: No lymphadenopathy. BONES, CHEST WALL: Unremarkable. No fracture or destructive lesion OTHER FINDINGS: Unremarkable. IMPRESSION: Extensive bilateral pulmonary arterial filling defect in all the main lobar pulmonary arteries and proximal segmental branches. Straightening of the interventricular septum. Probable right ventricular strain. Correlate with lateral cardiac trapeze. Dilatation of main pulmonary artery. The findings in this examination were discussed by telephone with Dr. Muñoz at 5:12 p.m. on 08/18/2018.
[2018-08-18 17:50] LABS: TROPONIN I 0.108 ng/mL (0.00-0.120)
--- NOTE | 2018-08-18 20:51 | CP.PCM.PN ---
Subjective - Date & Time of Evaluation Date of Evaluation: 08/18/18 Time of Evaluation: : - Subjective Subjective: SOB and near syncopal episode Objective - Vital Signs/Intake and Output Vital Signs (last 24 hours): Temp Pulse Resp BP Pulse Ox 97 F L 71 19 120/79 87 L 08/18/18 14:30 08/18/18 17:09 08/18/18 17:09 08/18/18 16:27 08/18/18 17:09 - Labs Labs: 08/18/18 15:02 08/18/18 15:02 Assessment and Plan - Assessment and Plan (Free Text) Assessment: SOB and near syncopal episode Hypoxemia pulse oximetry R/O PE CT scan chest
--- NOTE | 2018-08-19 06:59 | CARD ---
APPROVED REPORT Date of service: 08/18/2018 EKG Measurement Heart [id number] <Conclusion> Sinus tachycardia with 1st degree AV block Cannot rule out Inferior infarct, age undetermined Abnormal ECG
[2018-08-19] MEDS ORDERED: POLYETHYLENE GLYCOL 3350 17 GM/Dose PACKET PO PRN (08:51)
--- NOTE | 2018-08-19 09:27 | CP.PCM.CON ---
History of Present Illness - History of Present Illness History of Present Illness: This 78 year old male presented to the emergency room yesterday with a three day history of congested cough. He was being seen by physical therapy when his SpaO2 was found to be in the low 80s and he was referred to the ER. He offered no complaint of SOB or chest pain. Cough was congested but non-productive and there was no hemoptysis. CTA of the chest showed bilateral embolic disease and a suggestion of pulmonary hypertension. EKG also showing S1/Q3/T3 pattern. He has no prior pulmonary disease history, but was a cigarette smoker in the remote past. He has had prior CVA and also has been admitted to hospital with GI bleeding thought to possibly be related to medical therapy. During the exam he is not SOB, but SpO2 was only 87% with O2 via face mask which he was not wearing at the time. Past Patient History - Past Medical History & Family History Past Medical History?: Yes - Past Social History Smoking Status: Former Smoker Chewing Tobacco Use: No Cigar Use: No Alcohol: None Drugs: Denies Home Situation {Lives}: With Family - CARDIAC Hx Hypercholesterolemia: Yes Hx Hypertension: Yes - PULMONARY Hx Respiratory Disorders: No - NEUROLOGICAL HX Cerebrovascular Accident: Yes Hx Seizures: Yes - HEENT Hx HEENT Problems: No - RENAL Hx Chronic Kidney Disease: No - ENDOCRINE/METABOLIC Hx Diabetes Mellitus Type 2: Yes - HEMATOLOGICAL/ONCOLOGICAL Hx Anemia: Yes Hx Human Immunodeficiency Virus (HIV): No - INTEGUMENTARY Hx Dermatological Problems: No - MUSCULOSKELETAL/RHEUMATOLOGICAL Hx Arthritis: Yes Hx Falls: No - GASTROINTESTINAL Hx Constipation: Yes Hx Gastritis: Yes Hx Hemorrhoids: Yes Other/Comment: episode of GI bleed, gastritis related? - GENITOURINARY/GYNECOLOGICAL Hx Prostate Problems: Yes Other/Comment: urinary retention, bronson catheter inserted - PSYCHIATRIC Hx Psychophysiologic Disorder: No Hx Substance Use: No - SURGICAL HISTORY Hx Surgeries: No - ANESTHESIA Hx Anesthesia: No Hx Anesthesia Reactions: No Hx Malignant Hyperthermia: No Meds Allergies/Adverse Reactions: Allergies Allergy/AdvReac Type Severity Reaction Status Date / Time No Known Allergies Allergy Verified 06/02/18 18:28 - Medications Medications: Current Medications Carvedilol (Coreg) 12.5 mg PO BID [facility] Docusate Sodium (Colace) 100 mg PO DAILY PRN PRN Reason: Constipation Enoxaparin Sodium (Lovenox) 60 mg SC Q12 [facility]; Protocol Ferrous Sulfate (Feosol) 325 mg PO DAILY [facility] Home Med (Simvastatin [Zocor]) 20 mg PO HS [facility] Levetiracetam (Keppra) 500 mg PO BID [facility] Pantoprazole Sodium (Protonix Ec Tab) 40 mg PO DAILY [facility] Polyethylene Glycol (Miralax) 17 gm PO DAILY PRN PRN Reason: Constipation Tamsulosin HCl (Flomax) 0.8 mg PO DAILY [facility] Physical Exam - Additional Findings Additional findings: Thin, well developed male, awake and responsive to questions. Cooperative with physical exam. Neck is supple and trachea midline, no visible JVD. No dullness on percussion of the anterior chest wall. No subcut emphysema. No palpable lymphadenopathy. Breath sounds present bilaterally, equally. Occasional sonorous rhonchi in dependant regions of both lungs. Rare dry rales in posterior areas of both lower lobes. No audible wheezing or bronchial breath sounds. Heart sounds well heard, regular. Abdomen is soft and non-tender with normal BS. No dependant edema of lower extremities, no calf tenderness. No cyanosis, no Norris's sign, pulses felt in both feet/ankles, diminished. Results - Vital Signs Recent Vital Signs: Last Vital Signs Temp 98.5 F 08/19/18 08:00 Pulse 80 08/19/18 08:00 Resp 18 08/19/18 08:00 BP 144/80 08/19/18 08:00 Pulse Ox 93 L 08/19/18 08:00 - Labs Result Diagrams: 08/18/18 15:02 08/18/18 15:02 Labs: Laboratory Results - last 24 hr 08/18/18 08/18/18 08/18/18 15:02 15:02 16:04 WBC 10.1 D RBC 3.71 L Hgb 11.8 L D Hct 35.3 MCV 95.0 H MCH 31.8 H MCHC 33.4 RDW 16.2 H Plt Count 257 D MPV 7.2 Neut % (Auto) 78.8 H Lymph % (Auto) 14.7 L [place]ick[place] % (Auto) 4.3 Eos % (Auto) 1.7 Baso % (Auto) 0.5 Neut # (Auto) 7.9 H Lymph # (Auto) 1.5 [place]ickman # (Auto) 0.4 Eos # (Auto) 0.2 Baso # (Auto) 0.1 pO2 VBG pH VBG pCO2 VBG HCO3 VBG Total CO2 VBG O2 Sat (Calc) VBG Base Excess VBG Potassium Glucose Lactate FiO2 Sodium 140 Potassium 5.2 H Chloride 108 H Carbon Dioxide 23 Anion Gap 14 BUN 33 H Creatinine 1.4 Est GFR ( Amer) 59 Est GFR (Non-Af Amer) 49 Random Glucose 172 H Calcium 9.3 Total Bilirubin 0.3 AST 22 ALT 21 Alkaline Phosphatase 99 Troponin I NT-Pro-B Natriuret Pep Total Protein 7.6 Albumin 3.7 Globulin 3.9 Albumin/Globulin Ratio 1.0 Venous Blood Potassium Influenza Typ A,B (EIA) Negative for flu a/b 08/18/18 08/18/18 16:17 17:25 WBC RBC Hgb Hct MCV MCH MCHC RDW Plt Count MPV Neut % (Auto) Lymph % (Auto) Hickman % (Auto) Eos % (Auto) Baso % (Auto) Neut # (Auto) Lymph # (Auto) Hickman # (Auto) Eos # (Auto) Baso # (Auto) pO2 20 L VBG pH 7.34 VBG pCO2 48 VBG HCO3 22.7 VBG Total CO2 27.4 VBG O2 Sat (Calc) 33.4 L VBG Base Excess -0.4 L VBG Potassium 5.0 Glucose 163 H Lactate 1.8 FiO2 21.0 Sodium 138.0 Potassium Chloride 108.0 H Carbon Dioxide Anion Gap BUN Creatinine Est GFR ( Amer) Est GFR (Non-Af Amer) Random Glucose Calcium Total Bilirubin AST ALT Alkaline Phosphatase Troponin I 0.1080 NT-Pro-B Natriuret Pep 3290 H Total Protein Albumin Globulin Albumin/Globulin Ratio Venous Blood Potassium 5.0 Influenza Typ A,B (EIA) Assessment & Plan (1) Pulmonary embolism Status: Acute Priority: High Comment: Submassive, bilateral, unprovoked. (2) Hypoxemia Status: Acute Priority: High Comment: Secondary to the above. (3) Pulmonary hypertension Status: Suspected Priority: High - Assessment and Plan (Free Text) Plan: Due to prior hospitalization for GI bleed he will likely require IVC filter. Venous duplex scan of both lower extremities has been ordered. Presently on LMWH, need to monitor Hgb and stool guiac. Aspirin has been discontinued, continue PPI therapy. Echocardiogram suggested. - Date & Time Date: 08/19/18 Time: 09:45
[2018-08-19] MEDS: Pantoprazole 40 mg EC Tab PO SCH (10:15)
--- NOTE | 2018-08-19 12:30 | CP.PCM.CON ---
History of Present Illness - History of Present Illness History of Present Illness: 78 year old male with a history of DM, CVA, seizure disorder, anemia (iron deficiency/anemia of CKD), GI bleeding, presenting with hypoxia, found to have bilateral pulmonary emboli. The patient was noted to have hypoxia at home and brought to the hospital. A CT angio of the chest revealed bilateral PE's with probable RV strain. He notes to chest congestion for 2-3 days but had worsening cough today. He is currently on therapeutic lovenox and reports to feeling better. He denies pain and trauma to his extremities. Past medical history: DM, CVA, seizures Past surgical history: None Family history: Denies hematologic and oncologic problems Social history: Former tobacco Allergies: NKA Review of systems: All remaining review of systems including HEENT, cardiovascular, respiratory, gastrointestinal, genitourinary, musculoskeletal, dermatologic, neurologic, and psychiatric are negative unless mentioned in the HPI. Past Patient History - Past Medical History & Family History Past Medical History?: Yes - Past Social History Smoking Status: Former Smoker Chewing Tobacco Use: No Cigar Use: No Alcohol: None Drugs: Denies Home Situation {Lives}: With Family - CARDIAC Hx Hypercholesterolemia: Yes Hx Hypertension: Yes - PULMONARY Hx Respiratory Disorders: No - NEUROLOGICAL HX Cerebrovascular Accident: Yes Hx Seizures: Yes - HEENT Hx HEENT Problems: No - RENAL Hx Chronic Kidney Disease: No - ENDOCRINE/METABOLIC Hx Diabetes Mellitus Type 2: Yes - HEMATOLOGICAL/ONCOLOGICAL Hx Anemia: Yes Hx Human Immunodeficiency Virus (HIV): No - INTEGUMENTARY Hx Dermatological Problems: No - MUSCULOSKELETAL/RHEUMATOLOGICAL Hx Arthritis: Yes Hx Falls: No - GASTROINTESTINAL Hx Constipation: Yes Hx Gastritis: Yes Hx Hemorrhoids: Yes Other/Comment: episode of GI bleed, gastritis related? - GENITOURINARY/GYNECOLOGICAL Hx Prostate Problems: Yes Other/Comment: urinary retention, bronson catheter inserted - PSYCHIATRIC Hx Psychophysiologic Disorder: No Hx Substance Use: No - SURGICAL HISTORY Hx Surgeries: No - ANESTHESIA Hx Anesthesia: No Hx Anesthesia Reactions: No Hx Malignant Hyperthermia: No Meds Allergies/Adverse Reactions: Allergies Allergy/AdvReac Type Severity Reaction Status Date / Time No Known Allergies Allergy Verified 06/02/18 18:28 - Medications Medications: Current Medications Atorvastatin Calcium (Lipitor) 10 mg PO HS [facility] Carvedilol (Coreg) 12.5 mg PO BID [facility] Docusate Sodium (Colace) 100 mg PO DAILY PRN PRN Reason: Constipation Enoxaparin Sodium (Lovenox) 60 mg SC Q12 [facility]; Protocol Ferrous Sulfate (Feosol) 325 mg PO DAILY [facility] Levetiracetam (Keppra) 500 mg PO BID [facility] Pantoprazole Sodium (Protonix Ec Tab) 40 mg PO DAILY [facility] Polyethylene Glycol (Miralax) 17 gm PO DAILY PRN PRN Reason: Constipation Tamsulosin HCl (Flomax) 0.8 mg PO DAILY [facility] Physical Exam - Head Exam Head Exam: ATRAUMATIC - Eye Exam Eye Exam: Normal appearance - ENT Exam ENT Exam: Mucous Membranes Dry - Respiratory Exam Respiratory Exam: NORMAL BREATHING PATTERN - Cardiovascular Exam Cardiovascular Exam: +S1, +S2 - GI/Abdominal Exam GI & Abdominal Exam: Normal Bowel Sounds - Neurological Exam Neurological exam: Oriented x3 - Psychiatric Exam Psychiatric exam: Normal Affect, Normal Mood - Skin Skin Exam: Warm Results - Vital Signs Recent Vital Signs: Last Vital Signs Temp 98.5 F 08/19/18 08:00 Pulse 80 08/19/18 08:00 Resp 18 08/19/18 08:00 BP 144/80 08/19/18 08:00 Pulse Ox 93 L 08/19/18 08:00 - Labs Result Diagrams: 08/18/18 15:02 08/18/18 15:02 Labs: Laboratory Results - last 24 hr 08/18/18 08/18/18 08/18/18 15:02 15:02 16:04 WBC 10.1 D RBC 3.71 L Hgb 11.8 L D Hct 35.3 MCV 95.0 H MCH 31.8 H MCHC 33.4 RDW 16.2 H Plt Count 257 D MPV 7.2 Neut % (Auto) 78.8 H Lymph % (Auto) 14.7 L [place] % (Auto) 4.3 Eos % (Auto) 1.7 Baso % (Auto) 0.5 Neut # (Auto) 7.9 H Lymph # (Auto) 1.5 [place] # (Auto) 0.4 Eos # (Auto) 0.2 Baso # (Auto) 0.1 pO2 VBG pH VBG pCO2 VBG HCO3 VBG Total CO2 VBG O2 Sat (Calc) VBG Base Excess VBG Potassium Glucose Lactate FiO2 Sodium 140 Potassium 5.2 H Chloride 108 H Carbon Dioxide 23 Anion Gap 14 BUN 33 H Creatinine 1.4 Est GFR ( Amer) 59 Est GFR (Non-Af Amer) 49 Random Glucose 172 H Calcium 9.3 Total Bilirubin 0.3 AST 22 ALT 21 Alkaline Phosphatase 99 Troponin I NT-Pro-B Natriuret Pep Total Protein 7.6 Albumin 3.7 Globulin 3.9 Albumin/Globulin Ratio 1.0 Venous Blood Potassium Influenza Typ A,B (EIA) Negative for flu a/b 08/18/18 08/18/18 16:17 17:25 WBC RBC Hgb Hct MCV MCH MCHC RDW Plt Count MPV Neut % (Auto) Lymph % (Auto) [place] % (Auto) Eos % (Auto) Baso % (Auto) Neut # (Auto) Lymph # (Auto) [place] # (Auto) Eos # (Auto) Baso # (Auto) pO2 20 L VBG pH 7.34 VBG pCO2 48 VBG HCO3 22.7 VBG Total CO2 27.4 VBG O2 Sat (Calc) 33.4 L VBG Base Excess -0.4 L VBG Potassium 5.0 Glucose 163 H Lactate 1.8 FiO2 21.0 Sodium 138.0 Potassium Chloride 108.0 H Carbon Dioxide Anion Gap BUN Creatinine Est GFR ( Amer) Est GFR (Non-Af Amer) Random Glucose Calcium Total Bilirubin AST ALT Alkaline Phosphatase Troponin I 0.1080 NT-Pro-B Natriuret Pep 3290 H Total Protein Albumin Globulin Albumin/Globulin Ratio Venous Blood Potassium 5.0 Influenza Typ A,B (EIA) Assessment & Plan (1) Pulmonary embolism Assessment and Plan: on therapeutic anticoagulation; will follow H/H given prior GI bleeding ultrasound of the lower extremities pending; consider IVC filter if found to have LE DVT given heart strain and prior GI bleeding Status: Acute Priority: High (2) Anemia Assessment and Plan: prior iron deficiency from chronic GI blood loss; will check iron stores H/H improved since stopping antiplatelet Thank you for this interesting consult. Status: Chronic
[2018-08-19] MEDS: Enoxaparin 60 mg Syringe SC SCH ×2 (13:18→22:10)
--- NOTE | 2018-08-19 16:15 | US ---
Date of service: 08/19/2018 PROCEDURE: Bilateral lower extremity venous duplex Doppler. HISTORY: r/o dvt COMPARISON: None available. TECHNIQUE: Bilateral common femoral, superficial femoral, popliteal and posterior tibial veins were evaluated. Flow was assessed with color Doppler, compressibility, assessment of phasic flow and augmentation response. FINDINGS: COMMON FEMORAL VEIN: Right CFV: Unremarkable. Left CFV: Unremarkable. SUPERFICIAL FEMORAL VEIN: Right SFV: Unremarkable. Left SFV: There is an acute occlusive thrombus in the mid and distal superficial femoral vein. POPLITEAL VEIN: Right Popliteal: Unremarkable. Left Popliteal: There is a nonocclusive thrombus in the popliteal vein. POSTERIOR TIBIAL VEIN: Right PTV: Unremarkable. Left PTV: Unremarkable. OTHER FINDINGS: None. IMPRESSION: 1. No evidence of deep venous thrombosis in the right lower extremity. 2. Acute occlusive thrombus in the left mid and distal superficial vein and nonocclusive thrombus in the left popliteal vein.
--- NOTE | 2018-08-19 20:19 | CP.PCM.HP ---
History of Present Illness - History of Present Illness History of Present Illness: 78 yo admitted with PTE Present on Admission - Present on Admission Any Indicators Present on Admission: No Past Patient History - Past Medical History & Family History Past Medical History?: Yes - Past Social History Smoking Status: Former Smoker Chewing Tobacco Use: No Cigar Use: No Alcohol: None Drugs: Denies Home Situation {Lives}: With Family - CARDIAC Hx Hypercholesterolemia: Yes Hx Hypertension: Yes - PULMONARY Hx Respiratory Disorders: No - NEUROLOGICAL HX Cerebrovascular Accident: Yes Hx Seizures: Yes - HEENT Hx HEENT Problems: No - RENAL Hx Chronic Kidney Disease: No - ENDOCRINE/METABOLIC Hx Diabetes Mellitus Type 2: Yes - HEMATOLOGICAL/ONCOLOGICAL Hx Anemia: Yes Hx Human Immunodeficiency Virus (HIV): No - INTEGUMENTARY Hx Dermatological Problems: No - MUSCULOSKELETAL/RHEUMATOLOGICAL Hx Arthritis: Yes Hx Falls: No - GASTROINTESTINAL Hx Constipation: Yes Hx Gastritis: Yes Hx Hemorrhoids: Yes Other/Comment: episode of GI bleed, gastritis related? - GENITOURINARY/GYNECOLOGICAL Hx Prostate Problems: Yes Other/Comment: urinary retention, bronson catheter inserted - PSYCHIATRIC Hx Psychophysiologic Disorder: No Hx Substance Use: No - SURGICAL HISTORY Hx Surgeries: No - ANESTHESIA Hx Anesthesia: No Hx Anesthesia Reactions: No Hx Malignant Hyperthermia: No Meds Allergies/Adverse Reactions: Allergies Allergy/AdvReac Type Severity Reaction Status Date / Time No Known Allergies Allergy Verified 06/02/18 18:28 Physical Exam - Respiratory Exam Respiratory Exam: NORMAL BREATHING PATTERN - Cardiovascular Exam Cardiovascular Exam: REGULAR RHYTHM - GI/Abdominal Exam GI & Abdominal Exam: Normal Bowel Sounds Results - Vital Signs Recent Vital Signs: Last Vital Signs Temp 98.1 F 08/19/18 20:06 Pulse 69 08/19/18 20:06 Resp 18 08/19/18 20:06 BP 130/79 08/19/18 20:06 Pulse Ox 95 08/19/18 20:06 - Labs Result Diagrams: 08/18/18 15:02 08/18/18 15:02 Assessment & Plan - Assessment and Plan (Free Text) Assessment: PTE O2 Lovenox ASA d/c stool for OB Pulmonary consult Hx Anemia GI Bleed? 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
--- NOTE | 2018-08-19 20:44 | CARD ---
APPROVED REPORT Date of service: 08/19/2018 EXAM: Two-dimensional and M-mode echocardiogram with Doppler and color Doppler. Other Information Quality : GoodRhythm : NSR INDICATION Dyspnea Pulmonary Embolism 2D DIMENSIONS IVSd1.29 (0.7-1.1cm)LVDd4.19 (3.9-5.9cm) LVOT Diameter2.20 (1.8-2.4cm)PWd1.13 (0.7-1.1cm) IVSs1.85 (0.8-1.2cm)LVDs3.13 (2.5-4.0cm) FS (%) 25.2 %PWs1.60 (0.8-1.2cm) M-Mode DIMENSIONS Left Atrium (MM)3.29 (2.5-4.0cm)IVSd1.42 (0.7-1.1cm) Aortic Root3.81 (2.2-3.7cm)LVDd4.86 (4.0-5.6cm) Aortic Cusp Exc.1.88 (1.5-2.0cm)PWd0.98 (0.7-1.1cm) IVSs1.78 cmFS (%) 25 % LVDs3.65 (2.0-3.8cm)PWs1.36 cm Aortic Valve LVOT Peak Xrgngnjk25.4cm/sLVOT VTI8.81cm Mitral Valve MV E Qtlnnpvw41.4cm/sMV DECEL [id number] A Lqzvhfia46.9cm/s MV CLN11ndQ/A ratio0.4MVA (PHT)3.47cm2 TDI Lateral E' Peak V5.54cm/sMedial E' Peak V5.79cm/sE/Lateral E'6.0 E/Medial E'5.8 LEFT VENTRICLE The left ventricle is normal size. There is borderline to mild concentric left ventricular hypertrophy. The left ventricular systolic function is normal. The estimated ejection fraction is 55-60% No regional wall motion abnormalities noted.. Transmitral Doppler flow pattern is Grade I-abnormal relaxation pattern. No left ventricle thrombus noted on this study. There is no ventricular septal defect visualized. There is no left ventricular aneurysm. There is no mass noted in the left ventricle. RIGHT VENTRICLE The right ventricle is mildly dilated. There is normal right ventricular wall thickness. The right ventricular systolic function is mildly reduced consistent with RV strain from PE. ATRIA The left atrium size is normal. The right atrium size is normal. Cannot rule out possibility of a small ASD or PFO. Consider ANTHONY if clinically indicated. AORTIC VALVE The aortic valve is normal in structure. Mild aortic regurgitation is present. There is no aortic valvular stenosis. There is no aortic valvular vegetation. MITRAL VALVE The mitral valve is normal in structure. There is no evidence of mitral valve prolapse. There is no mitral valve stenosis. There is no mitral valve regurgitation noted. TRICUSPID VALVE The tricuspid valve is normal in structure. There is trivial tricuspid valve regurgitation noted. There is no tricuspid valve prolapse or vegetation. There is no tricuspid valve stenosis. PULMONIC VALVE The pulmonary valve is normal in structure. There is no pulmonic valvular regurgitation. There is no pulmonic valvular stenosis. GREAT VESSELS The aortic root is normal in size. The ascending aorta is normal in size. The pulmonary artery is normal. The IVC is normal in size and collapses >50% with inspiration. PERICARDIAL EFFUSION There is no pericardial effusion. There is no pleural effusion. <Conclusion> There is borderline to mild concentric left ventricular hypertrophy. The estimated ejection fraction is 55-60% Transmitral Doppler flow pattern is Grade I-abnormal relaxation pattern. The right ventricular systolic function is mildly reduced consistent with RV strain from PE. There is trivial tricuspid valve regurgitation noted. Mild aortic regurgitation is present.
[2018-08-20 06:38] LABS: HEMOGLOBIN 11.2 g/dL (12.0-18.0); MEAN CELL VOLUME 95.4 fl (80.0-94.0); MEAN CORPUSCULAR HEMOGLOBIN 31.5 pg (27.0-31.0); RBC 3.57 Mil/uL (4.40-5.90); RED CELL DISTRIBUTION WIDTH 16.2 % (11.5-14.5)
[2018-08-20 07:17] LABS: FERRITIN 82.2 ng/Ml (17.9-464)
[2018-08-20] MEDS: Enoxaparin 60 mg Syringe SC SCH ×2 (08:49→21:03)
[2018-08-20] MEDS: Pantoprazole 40 mg EC Tab PO SCH (08:50)
--- NOTE | 2018-08-20 09:00 | CP.PCM.PN ---
Subjective - Date & Time of Evaluation Date of Evaluation: 08/20/18 Time of Evaluation: 08:58 - Subjective Subjective: Seen on morning rounds in telemetry. Vital signs have remained stable. HFNC apparently not available. Has maintained adequate SpO2 with NC @ 4 LPM. Echocardiogram consistent with some degree of RV strain. Venous duplex of LE's shows thrombus in L SFV and L popliteal vein. Hemoglobin remains fairly stable, decreased by 0.5GM. No signs of bleeding. Clinical exam of the lower extremities is unremarkable. Neck veins are not distended. Breath sounds are present equally in both lungs. Few dry rales and occasional rhonchi present in LLs posteriorly. Heart sounds are distant and regular. Abdomen is soft and non-tender. Explained to the patient that IVC filter should be inserted. He appears to understand and does agree to the procedure. Will contact PMD to advise of the above. Will discuss further with Heme to ask if LMWH can be maintained at a prophylactic dose after IVC filter is inserted. Objective - Vital Signs/Intake and Output Vital Signs (last 24 hours): Temp Pulse Resp BP Pulse Ox 97.5 F L 67 20 139/80 100 08/20/18 08:47 08/20/18 08:47 08/20/18 08:47 08/20/18 08:47 08/20/18 08:47 Intake and Output: 08/19/18 08/20/18 23:59 11:59 Intake Total 240 Output Total 280 Balance -40 - Medications Medications: Current Medications Atorvastatin Calcium (Lipitor) 10 mg PO HS [facility] Last Admin: 08/19/18 22:09 Dose: 10 mg Carvedilol (Coreg) 12.5 mg PO BID [facility] Last Admin: 08/20/18 08:47 Dose: 12.5 mg Docusate Sodium (Colace) 100 mg PO DAILY PRN PRN Reason: Constipation Enoxaparin Sodium (Lovenox) 60 mg SC Q12 [facility]; Protocol Last Admin: 08/20/18 08:49 Dose: 60 mg Ferrous Sulfate (Feosol) 325 mg PO DAILY [facility] Last Admin: 08/20/18 08:47 Dose: 325 mg Levetiracetam (Keppra) 500 mg PO BID [facility] Last Admin: 08/20/18 08:48 Dose: 500 mg Pantoprazole Sodium (Protonix Ec Tab) 40 mg PO DAILY [facility] Last Admin: 08/20/18 08:50 Dose: 40 mg Polyethylene Glycol (Miralax) 17 gm PO DAILY PRN PRN Reason: Constipation Tamsulosin HCl (Flomax) 0.8 mg PO DAILY [facility] Last Admin: 08/19/18 10:00 Dose: 0.8 mg - Labs Labs: 08/20/18 05:51 08/20/18 05:51 Assessment and Plan (1) Pulmonary embolism Status: Acute (2) Hypoxemia Status: Acute (3) Pulmonary hypertension Status: Suspected
[2018-08-20] MEDS ORDERED: Iodixanol 320 MG/ML 100 ML BOTTLE IV ONE ×2 (11:44)
[2018-08-20] MEDS ORDERED: Lidocaine 1% 5ml Abboject ONE (12:01)
--- NOTE | 2018-08-20 12:33 | PCM.SURG1 ---
Surgeon's Initial Post Op Note - Surgeon's Notes Surgeon: Steven Torres MD Pressing Machine Tender: NONE Type of Anesthesia: Local Pre-Operative Diagnosis: DVT, pulmonary embolism Operative Findings: US showed a patent right femoral vein. IVC venogram is normal. Inflow of renal veins noted. Post-Operative Diagnosis: DVT, pulmonary embolism Operation Performed: Retrievable IVC filter placement infrarenal IVC. Specimen/Specimens Removed: none Estimated Blood Loss: EBL {In ML}: 2 Blood Products Given: N/A Drains Used: No Drains Post-Op Condition: Fair Date of Surgery/Procedure: 08/20/18 Time of Surgery/Procedure: 12:30
--- NOTE | 2018-08-20 12:52 | VASCULAR ---
PROCEDURE: Date of procedure: 08/20/2018 Procedure: Inferior vena cava filter insertion, CPT 48178 Medications: 5cc 1% lidocaine HISTORY: DVT, Pulmonary embolism TECHNIQUE: Following informed consent and procedure time-out, the patient is placed supine on the interventional table. Patient right groin was prepped and draped in the usual sterile fashion. Ultrasound showed a compressible and patent right common femoral vein. After skin was anesthetized with 5cc 1% lidocaine, the femoral vein was accessed with micropuncture technique. The introducer sheath of an IVC filter was advanced over wire and positioned within the inferior vena cava and an inferior vena cavagram was performed. The inferior vena cava is normal without evidence of thrombus. The inflow of the right and left renal veins were noted. There is no venous anomalies. A retrievable filter was then placed within the infrarenal IVC. Following IVC filter placement, the sheath was removed and pressure was applied to Pt's right groin until hemostasis was achieved. A dressing was applied. IMPRESSION: Placement of retrievable filter within the infrarenal IVC.
[2018-08-20 13:37] LABS: FOLATE 8.3 ng/mL
--- NOTE | 2018-08-20 13:45 | CP.PCM.PN ---
Subjective - Date & Time of Evaluation Date of Evaluation: 08/20/18 Time of Evaluation: 11:00 - Subjective Subjective: Less cough, for IVC filter placement Objective - Vital Signs/Intake and Output Vital Signs (last 24 hours): Temp Pulse Resp BP Pulse Ox 98.4 F 66 18 140/87 99 08/20/18 12:33 08/20/18 12:33 08/20/18 12:33 08/20/18 12:33 08/20/18 12:33 Intake and Output: 08/20/18 08/20/18 06:59 18:59 Intake Total 240 Output Total 280 Balance -40 - Medications Medications: Current Medications Atorvastatin Calcium (Lipitor) 10 mg PO HS [facility] Last Admin: 08/19/18 22:09 Dose: 10 mg Carvedilol (Coreg) 12.5 mg PO BID [facility] Last Admin: 08/20/18 08:47 Dose: 12.5 mg Docusate Sodium (Colace) 100 mg PO DAILY PRN PRN Reason: Constipation Enoxaparin Sodium (Lovenox) 60 mg SC Q12 [facility]; Protocol Last Admin: 08/20/18 08:49 Dose: 60 mg Ferrous Sulfate (Feosol) 325 mg PO DAILY [facility] Last Admin: 08/20/18 08:47 Dose: 325 mg Levetiracetam (Keppra) 500 mg PO BID [facility] Last Admin: 08/20/18 08:48 Dose: 500 mg Pantoprazole Sodium (Protonix Ec Tab) 40 mg PO DAILY [facility] Last Admin: 08/20/18 08:50 Dose: 40 mg Polyethylene Glycol (Miralax) 17 gm PO DAILY PRN PRN Reason: Constipation Tamsulosin HCl (Flomax) 0.8 mg PO DAILY [facility] Last Admin: 08/20/18 10:33 Dose: 0.8 mg - Labs Labs: 08/20/18 05:51 08/20/18 05:51 - Head Exam Head Exam: ATRAUMATIC - Eye Exam Eye Exam: Normal appearance - ENT Exam ENT Exam: Mucous Membranes Dry - Respiratory Exam Respiratory Exam: NORMAL BREATHING PATTERN - Cardiovascular Exam Cardiovascular Exam: +S1, +S2 - GI/Abdominal Exam GI & Abdominal Exam: Normal Bowel Sounds Assessment and Plan (1) Pulmonary embolism Assessment & Plan: with left superficial femoral and popliteal vein clot burden for IVC filter today - RV strain and hx of GI blood loss custodial therapeutic anticoagulation carries a high risk given the patients prior GI bleeding prophylactic lovenox dosing would be reasonable given above Status: Acute (2) Anemia Assessment & Plan: prior iron deficiency anemia from chronic GI blood loss H/H fairly stable Status: Chronic
--- NOTE | 2018-08-20 19:16 | CP.PCM.PN ---
Subjective - Date & Time of Evaluation Date of Evaluation: 08/20/18 Time of Evaluation: 22:22 - Subjective Subjective: Above noted Consults appreciated Objective - Vital Signs/Intake and Output Vital Signs (last 24 hours): Temp Pulse Resp BP Pulse Ox 97.6 F 66 18 165/88 H 100 08/20/18 16:25 08/20/18 17:06 08/20/18 16:25 08/20/18 17:06 08/20/18 16:25 Intake and Output: 08/20/18 08/21/18 18:59 06:59 Intake Total 960 Output Total 1280 Balance -320 - Medications Medications: Current Medications Atorvastatin Calcium (Lipitor) 10 mg PO HS [facility] Last Admin: 08/19/18 22:09 Dose: 10 mg Carvedilol (Coreg) 12.5 mg PO BID [facility] Last Admin: 08/20/18 17:06 Dose: 12.5 mg Docusate Sodium (Colace) 100 mg PO DAILY PRN PRN Reason: Constipation Enoxaparin Sodium (Lovenox) 60 mg SC Q12 [facility]; Protocol Last Admin: 08/20/18 08:49 Dose: 60 mg Ferrous Sulfate (Feosol) 325 mg PO DAILY [facility] Last Admin: 08/20/18 08:47 Dose: 325 mg Levetiracetam (Keppra) 500 mg PO BID [facility] Last Admin: 08/20/18 17:06 Dose: 500 mg Pantoprazole Sodium (Protonix Ec Tab) 40 mg PO DAILY [facility] Last Admin: 08/20/18 08:50 Dose: 40 mg Polyethylene Glycol (Miralax) 17 gm PO DAILY PRN PRN Reason: Constipation Tamsulosin HCl (Flomax) 0.8 mg PO DAILY [facility] Last Admin: 08/20/18 10:33 Dose: 0.8 mg - Labs Labs: 08/20/18 05:51 08/20/18 05:51 - Respiratory Exam Respiratory Exam: NORMAL BREATHING PATTERN - Cardiovascular Exam Cardiovascular Exam: REGULAR RHYTHM - GI/Abdominal Exam GI & Abdominal Exam: Normal Bowel Sounds Assessment and Plan - Assessment and Plan (Free Text) Assessment: PTE DVT Hx Anemia GI Bleed? 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
[2018-08-20] MEDS: Nystatin 100,000 Units/ml Oral Susp 5 ml UD PO SCH (23:08)
[2018-08-21] MEDS: Nystatin 100,000 Units/ml Oral Susp 5 ml UD PO SCH ×4 (09:18→21:23)
[2018-08-21] MEDS: Pantoprazole 40 mg EC Tab PO SCH (09:18)
[2018-08-21 09:40] LABS: HEMOGLOBIN 10.9 g/dL (12.0-18.0); MEAN CELL VOLUME 94.5 fl (80.0-94.0); MEAN CORPUSCULAR HEMOGLOBIN 30.8 pg (27.0-31.0); MEAN CORPUSCULAR HGB CONC 32.6 g/dL (33.0-37.0); RBC 3.53 Mil/uL (4.40-5.90); RED CELL DISTRIBUTION WIDTH 15.5 % (11.5-14.5); WHITE BLOOD COUNT 6.5 K/uL (4.8-10.8)
[2018-08-21 09:41] LABS: CALCIUM 8.5 mg/dL (8.4-10.2)
--- NOTE | 2018-08-21 10:23 | CP.PCM.CON ---
History of Present Illness - History of Present Illness History of Present Illness: patient is 78 years of age male I was called to see him for consultation because of abnormal kidney function. Patient was admitted with diagnosis bilateral pulmonary embolization and he is receiving treatment and doing much better. No nausea or vomiting reported. Patient complaining of nocturia 1 but no dysuria No chest pain no shortness of breath at the present no history of chronic kidney disease Past medical history: DM, CVA, seizures Past surgical history: None Family history: no history of chronic kidney disease Social history: Former tobacco Allergies: NKA Review of Systems - Constitutional Constitutional: absent: Anorexia, Chills, Fatigue, Fever - EENT Eyes: absent: Change in Vision, Tunnel Vision Nose/Mouth/Throat: absent: Nasal Discharge, Sinus Pressure - Cardiovascular Cardiovascular: absent: Chest Pain, Claudication, Edema - Respiratory Respiratory: absent: Hemoptysis, Wheezing - Genitourinary Genitourinary: Nocturia - Musculoskeletal Musculoskeletal: absent: Arthralgias, Muscle Weakness - Neurological Neurological: absent: Abnormal Movements, Focal Weakness, Paresthesias - Psychiatric Psychiatric: absent: Auditory Hallucinations - Endocrine Endocrine: absent: Change in Body Appearance - Hematologic/Lymphatic Hematologic: absent: Easy Bleeding Past Patient History - Past Medical History & Family History Past Medical History?: Yes - Past Social History Smoking Status: Former Smoker Chewing Tobacco Use: No Cigar Use: No Alcohol: None Drugs: Denies Home Situation {Lives}: With Family - CARDIAC Hx Hypercholesterolemia: Yes Hx Hypertension: Yes - PULMONARY Hx Respiratory Disorders: No - NEUROLOGICAL HX Cerebrovascular Accident: Yes Hx Seizures: Yes - HEENT Hx HEENT Problems: No - RENAL Hx Chronic Kidney Disease: No - ENDOCRINE/METABOLIC Hx Diabetes Mellitus Type 2: Yes - HEMATOLOGICAL/ONCOLOGICAL Hx Anemia: Yes Hx Human Immunodeficiency Virus (HIV): No - INTEGUMENTARY Hx Dermatological Problems: No - MUSCULOSKELETAL/RHEUMATOLOGICAL Hx Arthritis: Yes Hx Falls: No - GASTROINTESTINAL Hx Constipation: Yes Hx Gastritis: Yes Hx Hemorrhoids: Yes Other/Comment: episode of GI bleed, gastritis related? - GENITOURINARY/GYNECOLOGICAL Hx Prostate Problems: Yes Other/Comment: urinary retention, bronson catheter inserted - PSYCHIATRIC Hx Psychophysiologic Disorder: No Hx Substance Use: No - SURGICAL HISTORY Hx Surgeries: No - ANESTHESIA Hx Anesthesia: No Hx Anesthesia Reactions: No Hx Malignant Hyperthermia: No Meds Allergies/Adverse Reactions: Allergies Allergy/AdvReac Type Severity Reaction Status Date / Time No Known Allergies Allergy Verified 06/02/18 18:28 - Medications Medications: Current Medications Atorvastatin Calcium (Lipitor) 10 mg PO HS [facility] Last Admin: 08/20/18 21:03 Dose: 10 mg Carvedilol (Coreg) 12.5 mg PO BID [facility] Last Admin: 08/21/18 09:18 Dose: 12.5 mg Docusate Sodium (Colace) 100 mg PO DAILY PRN PRN Reason: Constipation Enoxaparin Sodium (Lovenox) 40 mg SC DAILY [facility]; Protocol Ferrous Sulfate (Feosol) 325 mg PO DAILY [facility] Last Admin: 08/21/18 09:18 Dose: 325 mg Levetiracetam (Keppra) 500 mg PO BID [facility] Last Admin: 08/21/18 09:18 Dose: 500 mg Nystatin (Nystatin Oral Susp) 5 ml PO QID [facility] Last Admin: 08/21/18 09:18 Dose: 5 ml Pantoprazole Sodium (Protonix Ec Tab) 40 mg PO DAILY [facility] Last Admin: 08/21/18 09:18 Dose: 40 mg Polyethylene Glycol (Miralax) 17 gm PO DAILY PRN PRN Reason: Constipation Tamsulosin HCl (Flomax) 0.8 mg PO DAILY [facility] Last Admin: 08/21/18 09:18 Dose: 0.8 mg Physical Exam - Eye Exam Eye Exam: Conjunctival injection - ENT Exam ENT Exam: Mucous Membranes Moist - Neck Exam Neck exam: Negative for: Lymphadenopathy - Respiratory Exam Respiratory Exam: absent: Chest Wall Tenderness - Cardiovascular Exam Cardiovascular Exam: REGULAR RHYTHM. absent: Gallop, JVD - GI/Abdominal Exam GI & Abdominal Exam: Normal Bowel Sounds, Soft. absent: Guarding - Exam Exam: absent: Scrotal Swelling - Extremities Exam Extremities exam: Negative for: calf tenderness - Back Exam Back exam: absent: CVA tenderness (L), CVA tenderness (R) - Neurological Exam Neurological exam: Alert Results - Vital Signs Recent Vital Signs: Last Vital Signs Temp 98.0 F 08/21/18 08:00 Pulse 67 08/21/18 08:00 Resp 18 08/21/18 08:00 BP 157/82 H 08/21/18 08:00 Pulse Ox 100 08/21/18 08:00 - Labs Result Diagrams: 08/21/18 09:22 08/21/18 09:22 Labs: Laboratory Results - last 24 hr 08/20/18 08/21/18 08/21/18 05:51 09:22 09:22 WBC 6.5 RBC 3.53 L Hgb 10.9 L Hct 33.3 L MCV 94.5 H MCH 30.8 MCHC 32.6 L RDW 15.5 H Plt Count 244 Sodium 139 Potassium 4.2 Chloride 106 Carbon Dioxide 25 Anion Gap 12 BUN 32 H Creatinine 1.4 Est GFR ( Amer) 59 Est GFR (Non-Af Amer) 49 Random Glucose 106 Calcium 8.5 Folate 8.3 Assessment & Plan (1) Pulmonary embolism Status: Acute Priority: High (2) Pulmonary hypertension Status: Suspected Priority: High (3) Acute kidney injury Assessment and Plan: rule out acute kidney injury although I do not have baseline for serum creatinin e. Patient did have angiogram that could have been potential cause? Although changing in the hemodynamic of the patient when he presented with bilateral pulmonary emboli can cause acute kidney injury as well. My recommendation Stat urinalysis Ultrasound of the kidney to make sure there is no embolization to the kidney Spot urine for sodium osmolality and creatinine and eosinophils Status: Acute
--- NOTE | 2018-08-21 11:22 | CP.PCM.PN ---
Subjective - Date & Time of Evaluation Date of Evaluation: 08/21/18 Time of Evaluation: 11:20 - Subjective Subjective: Had IVC filter inserted yesterday w/o incident. Has a congested but non-productive cough today. Seen by renal today for evaluation. Lovenox decreased to 40MG once daily. Will discuss outpatient therapy with Latasha. Objective - Vital Signs/Intake and Output Vital Signs (last 24 hours): Temp Pulse Resp BP Pulse Ox 98.0 F 67 18 157/82 H 100 08/21/18 08:00 08/21/18 08:00 08/21/18 08:00 08/21/18 08:00 08/21/18 08:00 Intake and Output: 08/20/18 08/21/18 23:59 11:59 Intake Total 720 Output Total 1000 Balance -280 - Medications Medications: Current Medications Atorvastatin Calcium (Lipitor) 10 mg PO HS [facility] Last Admin: 08/20/18 21:03 Dose: 10 mg Carvedilol (Coreg) 12.5 mg PO BID [facility] Last Admin: 08/21/18 09:18 Dose: 12.5 mg Docusate Sodium (Colace) 100 mg PO DAILY PRN PRN Reason: Constipation Enoxaparin Sodium (Lovenox) 40 mg SC DAILY [facility]; Protocol Ferrous Sulfate (Feosol) 325 mg PO DAILY [facility] Last Admin: 08/21/18 09:18 Dose: 325 mg Levetiracetam (Keppra) 500 mg PO BID [facility] Last Admin: 08/21/18 09:18 Dose: 500 mg Nystatin (Nystatin Oral Susp) 5 ml PO QID [facility] Last Admin: 08/21/18 09:18 Dose: 5 ml Pantoprazole Sodium (Protonix Ec Tab) 40 mg PO DAILY [facility] Last Admin: 08/21/18 09:18 Dose: 40 mg Polyethylene Glycol (Miralax) 17 gm PO DAILY PRN PRN Reason: Constipation Tamsulosin HCl (Flomax) 0.8 mg PO DAILY [facility] Last Admin: 08/21/18 09:18 Dose: 0.8 mg - Labs Labs: 08/21/18 09:22 08/21/18 09:22 Assessment and Plan (1) Pulmonary embolism Status: Acute (2) Hypoxemia Status: Acute (3) Pulmonary hypertension Status: Suspected
[2018-08-21] MEDS: Enoxaparin 40 mg Syringe SC SCH (13:53)
--- NOTE | 2018-08-21 15:38 | US ---
Date of service: 08/21/2018 PROCEDURE: Ultrasound of the Kidneys HISTORY: FRANCIE COMPARISON: 07/07/2018. Renal ultrasound. TECHNIQUE: Sonogram of the kidneys. FINDINGS: RIGHT KIDNEY: Measures: 4 x 10.3 cm. Normal in size, contour and echogenicity. No stone, solid mass lesion or hydronephrosis visualized. LEFT KIDNEY: Measures: 3.9 x 10.7 cm. Normal in size, contour and echogenicity. No stone, solid mass lesion or hydronephrosis visualized. OTHER FINDINGS: None. IMPRESSION: Unremarkable renal sonogram.No significant interval change compared to the prior examination(s).
[2018-08-21 16:05] LABS: URINE BACTERIA MANY (<OCC); URINE BILIRUBIN NEGATIVE (NEGATIVE); URINE BLOOD SMALL (NEGATIVE); URINE CLARITY TURBID (Clear); URINE COLOR YELLOW (YELLOW); URINE GLUCOSE (UA) NEG (Normal); URINE LEUKOCYTE ESTERASE MOD Leu/uL (Negative); URINE PROTEIN 100 mg/dL (NEGATIVE); URINE UROBILINOGEN 0.2-1.0 mg/dL (0.2-1.0); WBC CLUMPS MANY /hpf
--- NOTE | 2018-08-21 21:01 | CP.PCM.PN ---
Subjective - Date & Time of Evaluation Date of Evaluation: 08/21/18 Time of Evaluation: 14:15 - Subjective Subjective: Has some cough IVC filter placed yesterday Therapeutic Lovenox changed to prophylactic dosing. Objective - Vital Signs/Intake and Output Vital Signs (last 24 hours): Temp Pulse Resp BP Pulse Ox 97.8 F 58 L 18 162/78 H 100 08/21/18 19:48 08/21/18 19:48 08/21/18 19:48 08/21/18 19:48 08/21/18 19:48 - Medications Medications: Current Medications Atorvastatin Calcium (Lipitor) 10 mg PO HS [facility] Last Admin: 08/20/18 21:03 Dose: 10 mg Carvedilol (Coreg) 12.5 mg PO BID [facility] Last Admin: 08/21/18 18:05 Dose: 12.5 mg Docusate Sodium (Colace) 100 mg PO DAILY PRN PRN Reason: Constipation Enoxaparin Sodium (Lovenox) 40 mg SC DAILY [facility]; Protocol Last Admin: 08/21/18 13:53 Dose: 40 mg Ferrous Sulfate (Feosol) 325 mg PO DAILY [facility] Last Admin: 08/21/18 09:18 Dose: 325 mg Guaifenesin (Mucinex La) 600 mg PO Q12 [facility] Levetiracetam (Keppra) 500 mg PO BID [facility] Last Admin: 08/21/18 18:05 Dose: 500 mg Nystatin (Nystatin Oral Susp) 5 ml PO QID [facility] Last Admin: 08/21/18 18:05 Dose: 5 ml Pantoprazole Sodium (Protonix Ec Tab) 40 mg PO DAILY [facility] Last Admin: 08/21/18 09:18 Dose: 40 mg Polyethylene Glycol (Miralax) 17 gm PO DAILY PRN PRN Reason: Constipation Tamsulosin HCl (Flomax) 0.8 mg PO DAILY [facility] Last Admin: 08/21/18 09:18 Dose: 0.8 mg - Labs Labs: 08/21/18 09:22 08/21/18 09:22 - Head Exam Head Exam: ATRAUMATIC - Eye Exam Eye Exam: Normal appearance - ENT Exam ENT Exam: Mucous Membranes Dry - Respiratory Exam Respiratory Exam: NORMAL BREATHING PATTERN - Cardiovascular Exam Cardiovascular Exam: +S1, +S2 - GI/Abdominal Exam GI & Abdominal Exam: Normal Bowel Sounds - Extremities Exam Extremities Exam: Normal Inspection Assessment and Plan (1) Pulmonary embolism Assessment & Plan: with DVT - provoked from immobility complicated by right heart strain and prior admissions with GI bleeding requiring transfusion support underwent IVC filter placement and reduction of therapeutic anticoagulation to prophylactic Lovenox dosing given above my feeling is the patient is high risk for bleeding with therapeutic anticoagulation given his recent prior episodes of GI bleeding while on antiplatelets outpatient options would include no further anticoagulation vs reduced dosing Eliquis 2.5mg BID; will discuss further with the patient and his Status: Acute (2) Anemia Assessment & Plan: anemia of CKD and iron deficiency anemia Status: Chronic
[2018-08-21] MEDS: guaiFENesin 600 mg ER Tab PO SCH (21:23)
--- NOTE | 2018-08-21 21:31 | CP.PCM.PN ---
Subjective - Date & Time of Evaluation Date of Evaluation: 08/21/18 Time of Evaluation: 22:22 - Subjective Subjective: Above noted Objective - Vital Signs/Intake and Output Vital Signs (last 24 hours): Temp Pulse Resp BP Pulse Ox 97.8 F 58 L 18 162/78 H 100 08/21/18 19:48 08/21/18 19:48 08/21/18 19:48 08/21/18 19:48 08/21/18 19:48 - Medications Medications: Current Medications Atorvastatin Calcium (Lipitor) 10 mg PO HS [facility] Last Admin: 08/21/18 21:23 Dose: 10 mg Carvedilol (Coreg) 12.5 mg PO BID [facility] Last Admin: 08/21/18 18:05 Dose: 12.5 mg Docusate Sodium (Colace) 100 mg PO DAILY PRN PRN Reason: Constipation Enoxaparin Sodium (Lovenox) 40 mg SC DAILY [facility]; Protocol Last Admin: 08/21/18 13:53 Dose: 40 mg Ferrous Sulfate (Feosol) 325 mg PO DAILY [facility] Last Admin: 08/21/18 09:18 Dose: 325 mg Guaifenesin (Mucinex La) 600 mg PO Q12 [facility] Last Admin: 08/21/18 21:23 Dose: 600 mg Levetiracetam (Keppra) 500 mg PO BID [facility] Last Admin: 08/21/18 18:05 Dose: 500 mg Nystatin (Nystatin Oral Susp) 5 ml PO QID [facility] Last Admin: 08/21/18 21:23 Dose: 5 ml Pantoprazole Sodium (Protonix Ec Tab) 40 mg PO DAILY [facility] Last Admin: 08/21/18 09:18 Dose: 40 mg Polyethylene Glycol (Miralax) 17 gm PO DAILY PRN PRN Reason: Constipation Tamsulosin HCl (Flomax) 0.8 mg PO DAILY [facility] Last Admin: 08/21/18 09:18 Dose: 0.8 mg - Labs Labs: 08/21/18 09:22 08/21/18 09:22 - Respiratory Exam Respiratory Exam: NORMAL BREATHING PATTERN - Cardiovascular Exam Cardiovascular Exam: REGULAR RHYTHM - GI/Abdominal Exam GI & Abdominal Exam: Normal Bowel Sounds Assessment and Plan - Assessment and Plan (Free Text) Assessment: PTE DVT Hx Anemia GI Bleed? EGD Gastric polyps Lovenox ASA d/c stool for OB Pulmonary consult Hematology consult IR IVC filter FRANCIE creat 1.4 NIDDM CKD Diabetic Nephropathy Angiography?? 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
[2018-08-22 05:55] LABS: CALCIUM 8.6 mg/dL (8.4-10.2)
--- NOTE | 2018-08-22 08:50 | CP.PCM.PN ---
Subjective - Date & Time of Evaluation Date of Evaluation: 08/22/18 Time of Evaluation: 08:48 - Subjective Subjective: patient awake and conscious not in acute distress Patient appeared to be comfortable Vital sign noted Objective - Vital Signs/Intake and Output Vital Signs (last 24 hours): Temp Pulse Resp BP Pulse Ox 98 F 65 18 145/74 100 08/22/18 08:47 08/22/18 08:47 08/22/18 08:47 08/22/18 08:47 08/22/18 08:47 - Medications Medications: Current Medications Atorvastatin Calcium (Lipitor) 10 mg PO HS [facility] Last Admin: 08/21/18 21:23 Dose: 10 mg Carvedilol (Coreg) 12.5 mg PO BID [facility] Last Admin: 08/21/18 18:05 Dose: 12.5 mg Docusate Sodium (Colace) 100 mg PO DAILY PRN PRN Reason: Constipation Enoxaparin Sodium (Lovenox) 40 mg SC DAILY [facility]; Protocol Last Admin: 08/21/18 13:53 Dose: 40 mg Ferrous Sulfate (Feosol) 325 mg PO DAILY [facility] Last Admin: 08/21/18 09:18 Dose: 325 mg Guaifenesin (Mucinex La) 600 mg PO Q12 [facility] Last Admin: 08/21/18 21:23 Dose: 600 mg Levetiracetam (Keppra) 500 mg PO BID [facility] Last Admin: 08/21/18 18:05 Dose: 500 mg Nystatin (Nystatin Oral Susp) 5 ml PO QID [facility] Last Admin: 08/21/18 21:23 Dose: 5 ml Pantoprazole Sodium (Protonix Ec Tab) 40 mg PO DAILY [facility] Last Admin: 08/21/18 09:18 Dose: 40 mg Polyethylene Glycol (Miralax) 17 gm PO DAILY PRN PRN Reason: Constipation Prednisone (Prednisone Tab) 20 mg PO DAILY [facility] Stop: 08/26/18 06:00 Tamsulosin HCl (Flomax) 0.8 mg PO DAILY [facility] Last Admin: 08/21/18 09:18 Dose: 0.8 mg - Labs Labs: 08/21/18 09:22 08/22/18 05:00 - Constitutional Appears: No Acute Distress - Eye Exam Eye Exam: Conjunctival injection - ENT Exam ENT Exam: Mucous Membranes Moist - Neck Exam Neck Exam: absent: Lymphadenopathy - Respiratory Exam Respiratory Exam: NORMAL BREATHING PATTERN - Cardiovascular Exam Cardiovascular Exam: REGULAR RHYTHM. absent: Gallop, Rubs - GI/Abdominal Exam GI & Abdominal Exam: Normal Bowel Sounds - Extremities Exam Extremities Exam: absent: Calf Tenderness - Back Exam Back Exam: absent: CVA tenderness (L), CVA tenderness (R) - Neurological Exam Neurological Exam: Alert - Psychiatric Exam Psychiatric exam: Normal Affect - Skin Skin Exam: absent: Cyanosis Assessment and Plan (1) Pulmonary embolism Status: Acute (2) Pulmonary hypertension Status: Suspected (3) Acute kidney injury Assessment & Plan: urine eosinophils positive Acute kidney injury serum creatinine stable 1.4 most likely consistent with acute interstitial nephritis? history of diabetes mellitus Pulmonary emboli The plan We will add prednisone 20 mg a day for a few days perhaps for a week or so dependent on the kidney function and keep monitoring kidney function glycemic control Treatment of the pulmonary emboli Urinalysis showed many bacteria therefore patient need to have urine culture Status: Acute
[2018-08-22] MEDS: Pantoprazole 40 mg EC Tab PO SCH (09:15)
[2018-08-22] MEDS: Nystatin 100,000 Units/ml Oral Susp 5 ml UD PO SCH ×4 (09:15→21:19)
[2018-08-22] MEDS: Enoxaparin 40 mg Syringe SC SCH (09:16)
[2018-08-22] MEDS: guaiFENesin 600 mg ER Tab PO SCH ×2 (09:16→21:25)
--- NOTE | 2018-08-22 11:32 | CP.PCM.PN ---
Subjective - Date & Time of Evaluation Date of Evaluation: 08/22/18 Time of Evaluation: 11:00 - Subjective Subjective: No complaints. I had an at length discussion with the patient and his Amaris regarding anticoagulation and his risk of bleeding. They are uncomfortable not being on some form of anticoagulation given his history of stroke and now DVT/PE. They understand the potential risk for bleeding with anticoagulation and are in agreement for a reduced dosing of Eliquis 2.5mg BID. We will plan to follow him closely for any signs of bleeding while on Eliquis as discussed with Dr. Moreno and Dr. Reid. Objective - Vital Signs/Intake and Output Vital Signs (last 24 hours): Temp Pulse Resp BP Pulse Ox 98 F 65 18 145/74 100 08/22/18 08:47 08/22/18 09:00 08/22/18 08:47 08/22/18 08:47 08/22/18 08:47 - Medications Medications: Current Medications Apixaban (Eliquis) 2.5 mg PO BID [facility]; Protocol Atorvastatin Calcium (Lipitor) 10 mg PO HS [facility] Last Admin: 08/21/18 21:23 Dose: 10 mg Carvedilol (Coreg) 12.5 mg PO BID [facility] Last Admin: 08/22/18 09:16 Dose: 12.5 mg Docusate Sodium (Colace) 100 mg PO DAILY PRN PRN Reason: Constipation Ferrous Sulfate (Feosol) 325 mg PO DAILY [facility] Last Admin: 08/22/18 09:16 Dose: 325 mg Guaifenesin (Mucinex La) 600 mg PO Q12 [facility] Last Admin: 08/22/18 09:16 Dose: 600 mg Levetiracetam (Keppra) 500 mg PO BID [facility] Last Admin: 08/22/18 09:15 Dose: 500 mg Nystatin (Nystatin Oral Susp) 5 ml PO QID [facility] Last Admin: 08/22/18 09:15 Dose: 5 ml Pantoprazole Sodium (Protonix Ec Tab) 40 mg PO DAILY [facility] Last Admin: 08/22/18 09:15 Dose: 40 mg Polyethylene Glycol (Miralax) 17 gm PO DAILY PRN PRN Reason: Constipation Prednisone (Prednisone Tab) 20 mg PO DAILY [facility] Stop: 08/26/18 06:00 Last Admin: 08/22/18 09:45 Dose: 20 mg Tamsulosin HCl (Flomax) 0.8 mg PO DAILY [facility] Last Admin: 08/22/18 09:15 Dose: 0.8 mg - Labs Labs: 08/21/18 09:22 08/22/18 05:00 - Head Exam Head Exam: ATRAUMATIC - Eye Exam Eye Exam: Normal appearance - ENT Exam ENT Exam: Mucous Membranes Dry - Respiratory Exam Respiratory Exam: NORMAL BREATHING PATTERN - Cardiovascular Exam Cardiovascular Exam: +S1, +S2 - GI/Abdominal Exam GI & Abdominal Exam: Normal Bowel Sounds Assessment and Plan (1) Pulmonary embolism Assessment & Plan: with DVT - provoked from immobility complicated by right heart strain and prior admissions with GI bleeding requiring transfusion support underwent IVC filter placement and reduction of therapeutic anticoagulation to prophylactic Lovenox dosing given above high risk for full dose anticoagulation; for reduced Eliquis dosing 2.5mg BID - to monitor in the hospital for bleeding Status: Acute (2) Anemia Assessment & Plan: chronic disease and iron deficiency on PO iron Status: Chronic
--- NOTE | 2018-08-22 13:30 | CP.PCM.PN ---
Subjective - Date & Time of Evaluation Date of Evaluation: 08/22/18 Time of Evaluation: 13:28 - Subjective Subjective: Patient was seen on rounds in the telemetry unit. Presently lying in bed, appears comfortable. Hematology and nephrology notes reviewed. Physical therapy evaluation done yesterday. No complaints of chest discomfort or difficulty breathing. Well oxygenated without supplemental O2. Awake and alert and cooperative with examination. Breath sounds are present bilaterally without rales or wheezes. No bronchial breathing or egophony. No rub. No dependent edema. No calf tenderness. Extremities are warm to touch. No palpable venous cords. No cyanosis. Urine culture has been requested. Patient will be started on prednisone by nephrology. As per discussion with hematology the patient will remain on low-dose Eliquis with special attention paid to his bowel movements to watch for any potential bleeding episode. Continue physical therapy as tolerated. Objective - Vital Signs/Intake and Output Vital Signs (last 24 hours): Temp Pulse Resp BP Pulse Ox 98 F 65 18 145/74 100 08/22/18 08:47 08/22/18 09:00 08/22/18 08:47 08/22/18 08:47 08/22/18 08:47 - Medications Medications: Current Medications Apixaban (Eliquis) 2.5 mg PO BID [facility]; Protocol Atorvastatin Calcium (Lipitor) 10 mg PO HS [facility] Last Admin: 08/21/18 21:23 Dose: 10 mg Carvedilol (Coreg) 12.5 mg PO BID [facility] Last Admin: 08/22/18 09:16 Dose: 12.5 mg Docusate Sodium (Colace) 100 mg PO DAILY PRN PRN Reason: Constipation Ferrous Sulfate (Feosol) 325 mg PO DAILY [facility] Last Admin: 08/22/18 09:16 Dose: 325 mg Guaifenesin (Mucinex La) 600 mg PO Q12 [facility] Last Admin: 08/22/18 09:16 Dose: 600 mg Levetiracetam (Keppra) 500 mg PO BID [facility] Last Admin: 08/22/18 09:15 Dose: 500 mg Nystatin (Nystatin Oral Susp) 5 ml PO QID [facility] Last Admin: 08/22/18 09:15 Dose: 5 ml Pantoprazole Sodium (Protonix Ec Tab) 40 mg PO DAILY [facility] Last Admin: 08/22/18 09:15 Dose: 40 mg Polyethylene Glycol (Miralax) 17 gm PO DAILY PRN PRN Reason: Constipation Prednisone (Prednisone Tab) 20 mg PO DAILY [facility] Stop: 08/26/18 06:00 Last Admin: 08/22/18 09:45 Dose: 20 mg Tamsulosin HCl (Flomax) 0.8 mg PO DAILY [facility] Last Admin: 08/22/18 09:15 Dose: 0.8 mg - Labs Labs: 08/21/18 09:22 08/22/18 05:00 Assessment and Plan (1) Pulmonary embolism Status: Acute (2) Hypoxemia Status: Acute (3) Pulmonary hypertension Status: Suspected
--- NOTE | 2018-08-22 14:03 | CP.PCM.PCO ---
Assessment & Plan - Assessment and Plan (Free Text) Assessment: patient started on Eliquis 2.5 mg po bid ( d/w Amaris) cont. to monitor for GIB / hgb pt. also w/ interstitial nephritis- as per cont. prednisone for 4 more days and monitor cbcbmp in am above d/w
--- NOTE | 2018-08-22 18:38 | CP.PCM.PN ---
Subjective - Date & Time of Evaluation Date of Evaluation: 08/22/18 Time of Evaluation: 22:22 - Subjective Subjective: Above noted Objective - Vital Signs/Intake and Output Vital Signs (last 24 hours): Temp Pulse Resp BP Pulse Ox 97.3 F L 68 16 131/72 100 08/22/18 16:15 08/22/18 16:15 08/22/18 16:15 08/22/18 16:15 08/22/18 16:15 - Medications Medications: Current Medications Apixaban (Eliquis) 2.5 mg PO BID [facility]; Protocol Last Admin: 08/22/18 17:41 Dose: 2.5 mg Atorvastatin Calcium (Lipitor) 10 mg PO HS [facility] Last Admin: 08/21/18 21:23 Dose: 10 mg Carvedilol (Coreg) 12.5 mg PO BID [facility] Last Admin: 08/22/18 17:41 Dose: 12.5 mg Docusate Sodium (Colace) 100 mg PO DAILY PRN PRN Reason: Constipation Ferrous Sulfate (Feosol) 325 mg PO DAILY [facility] Last Admin: 08/22/18 09:16 Dose: 325 mg Guaifenesin (Mucinex La) 600 mg PO Q12 [facility] Last Admin: 08/22/18 09:16 Dose: 600 mg Levetiracetam (Keppra) 500 mg PO BID [facility] Last Admin: 08/22/18 17:41 Dose: 500 mg Nystatin (Nystatin Oral Susp) 5 ml PO QID [facility] Last Admin: 08/22/18 17:42 Dose: 5 ml Pantoprazole Sodium (Protonix Ec Tab) 40 mg PO DAILY [facility] Last Admin: 08/22/18 09:15 Dose: 40 mg Polyethylene Glycol (Miralax) 17 gm PO DAILY PRN PRN Reason: Constipation Prednisone (Prednisone Tab) 20 mg PO DAILY [facility] Stop: 08/26/18 06:00 Last Admin: 08/22/18 09:45 Dose: 20 mg Tamsulosin HCl (Flomax) 0.8 mg PO DAILY [facility] Last Admin: 08/22/18 09:15 Dose: 0.8 mg - Labs Labs: 08/21/18 09:22 08/22/18 05:00 - Respiratory Exam Respiratory Exam: NORMAL BREATHING PATTERN - Cardiovascular Exam Cardiovascular Exam: REGULAR RHYTHM - GI/Abdominal Exam GI & Abdominal Exam: Normal Bowel Sounds Assessment and Plan - Assessment and Plan (Free Text) Assessment: PTE DVT Hx Anemia GI Bleed? 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
[2018-08-23 07:21] LABS: HEMOGLOBIN 10.6 g/dL (12.0-18.0); MEAN CELL VOLUME 93.1 fl (80.0-94.0); MEAN CORPUSCULAR HEMOGLOBIN 31.8 pg (27.0-31.0); MEAN CORPUSCULAR HGB CONC 34.2 g/dL (33.0-37.0); RBC 3.33 Mil/uL (4.40-5.90); RED CELL DISTRIBUTION WIDTH 15.5 % (11.5-14.5); WHITE BLOOD COUNT 7.4 K/uL (4.8-10.8)
[2018-08-23] MEDS: Pantoprazole 40 mg EC Tab PO SCH (11:04)
[2018-08-23] MEDS: Nystatin 100,000 Units/ml Oral Susp 5 ml UD PO SCH ×4 (11:04→21:17)
[2018-08-23] MEDS: guaiFENesin 600 mg ER Tab PO SCH ×2 (11:04→21:17)
--- NOTE | 2018-08-23 12:17 | CP.PCM.PN ---
Subjective - Date & Time of Evaluation Date of Evaluation: 08/23/18 Time of Evaluation: 12:17 - Subjective Subjective: Appears comfortable, lying in bed. No complaints of cough or chest pain. No shortness of breath. Vital signs have been stable, well oxygenated. Has remained afebrile. No stool guiac yet, labs have been relatively stable. No swelling of the lower extremities, no calf tenderness. No cyanosis, no palpable venous cords, no venous dilatation. Neck is supple, trachea is midline. Breath sounds equally present in both lungs. Few rhonchi when coached to deep breathe/cough. No audible wheezes or bronchial breath sounds. Continue present medical regimen. Obtain stool for guiac. Monitor Hemoglobin. Continue lower dosed Eliquis (IVC filter in place). Objective - Vital Signs/Intake and Output Vital Signs (last 24 hours): Temp Pulse Resp BP Pulse Ox 98.0 F 61 18 163/74 H 100 08/23/18 08:00 08/23/18 11:02 08/23/18 08:00 08/23/18 11:02 08/23/18 08:00 - Medications Medications: Current Medications Apixaban (Eliquis) 2.5 mg PO BID [facility]; Protocol Last Admin: 08/23/18 11:02 Dose: 2.5 mg Atorvastatin Calcium (Lipitor) 10 mg PO HS [facility] Last Admin: 08/22/18 21:19 Dose: 10 mg Carvedilol (Coreg) 12.5 mg PO BID [facility] Last Admin: 08/23/18 11:02 Dose: 12.5 mg Docusate Sodium (Colace) 100 mg PO DAILY PRN PRN Reason: Constipation Ferrous Sulfate (Feosol) 325 mg PO DAILY [facility] Last Admin: 08/23/18 11:02 Dose: 325 mg Guaifenesin (Mucinex La) 600 mg PO Q12 [facility] Last Admin: 08/23/18 11:04 Dose: 600 mg Levetiracetam (Keppra) 500 mg PO BID [facility] Last Admin: 08/23/18 11:04 Dose: 500 mg Nystatin (Nystatin Oral Susp) 5 ml PO QID [facility] Last Admin: 08/23/18 11:04 Dose: 5 ml Pantoprazole Sodium (Protonix Ec Tab) 40 mg PO DAILY [facility] Last Admin: 08/23/18 11:04 Dose: 40 mg Polyethylene Glycol (Miralax) 17 gm PO DAILY PRN PRN Reason: Constipation Prednisone (Prednisone Tab) 20 mg PO DAILY [facility] Stop: 08/26/18 06:00 Last Admin: 08/23/18 11:04 Dose: 20 mg Tamsulosin HCl (Flomax) 0.8 mg PO DAILY [facility] Last Admin: 08/23/18 11:03 Dose: 0.8 mg - Labs Labs: 08/23/18 05:40 08/22/18 05:00 Assessment and Plan (1) Pulmonary embolism Status: Acute (2) Hypoxemia Status: Acute (3) Pulmonary hypertension Status: Suspected
--- NOTE | 2018-08-23 14:25 | CP.PCM.PN ---
Subjective - Date & Time of Evaluation Date of Evaluation: 08/23/18 Time of Evaluation: 22:22 - Subjective Subjective: Above noted Objective - Vital Signs/Intake and Output Vital Signs (last 24 hours): Temp Pulse Resp BP Pulse Ox 98.0 F 61 18 163/74 H 100 08/23/18 08:00 08/23/18 11:02 08/23/18 08:00 08/23/18 11:02 08/23/18 08:00 - Medications Medications: Current Medications Apixaban (Eliquis) 2.5 mg PO BID [facility]; Protocol Last Admin: 08/23/18 11:02 Dose: 2.5 mg Atorvastatin Calcium (Lipitor) 10 mg PO HS [facility] Last Admin: 08/22/18 21:19 Dose: 10 mg Carvedilol (Coreg) 12.5 mg PO BID [facility] Last Admin: 08/23/18 11:02 Dose: 12.5 mg Docusate Sodium (Colace) 100 mg PO DAILY PRN PRN Reason: Constipation Ferrous Sulfate (Feosol) 325 mg PO DAILY [facility] Last Admin: 08/23/18 11:02 Dose: 325 mg Guaifenesin (Mucinex La) 600 mg PO Q12 [facility] Last Admin: 08/23/18 11:04 Dose: 600 mg Levetiracetam (Keppra) 500 mg PO BID [facility] Last Admin: 08/23/18 11:04 Dose: 500 mg Nystatin (Nystatin Oral Susp) 5 ml PO QID [facility] Last Admin: 08/23/18 13:39 Dose: 5 ml Pantoprazole Sodium (Protonix Ec Tab) 40 mg PO DAILY [facility] Last Admin: 08/23/18 11:04 Dose: 40 mg Polyethylene Glycol (Miralax) 17 gm PO DAILY PRN PRN Reason: Constipation Prednisone (Prednisone Tab) 20 mg PO DAILY [facility] Stop: 08/26/18 06:00 Last Admin: 08/23/18 11:04 Dose: 20 mg Tamsulosin HCl (Flomax) 0.8 mg PO DAILY [facility] Last Admin: 08/23/18 11:03 Dose: 0.8 mg - Labs Labs: 08/23/18 05:40 08/22/18 05:00 Assessment and Plan - Assessment and Plan (Free Text) Assessment: PTE DVT Hx Anemia GI Bleed? 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
--- NOTE | 2018-08-23 14:45 | CP.PCM.PN ---
Subjective - Date & Time of Evaluation Date of Evaluation: 08/23/18 Time of Evaluation: 14:42 - Subjective Subjective: RENAL s: seen and examined no complaints o: vss gen: nad sclera: anicteric op: clear neck: supple no thyromegaly lungs: cta b/l cv: +S1+s2 no rub abd: soft no organomegaly nt/nd ext: no edema neuro: A+OX3 no focal defeict psych: nml affect skin: No rash imp: ARF/ CKD III/ PE/ Anemia/ UTI/ hypertension plan: Cr remains stable ? of ain - due to + urine eos' - however pt w/ lot of bacteria in urine and urine eos may be from uti , f/u on urine culture if pt d/c'd no need to continue prednisone as outpt bp on coreg hgb stable pe per heme Objective - Vital Signs/Intake and Output Vital Signs (last 24 hours): Temp Pulse Resp BP Pulse Ox 98.0 F 61 18 163/74 H 100 08/23/18 08:00 08/23/18 11:02 08/23/18 08:00 08/23/18 11:02 08/23/18 08:00 - Medications Medications: Current Medications Apixaban (Eliquis) 2.5 mg PO BID [facility]; Protocol Last Admin: 08/23/18 11:02 Dose: 2.5 mg Atorvastatin Calcium (Lipitor) 10 mg PO HS [facility] Last Admin: 08/22/18 21:19 Dose: 10 mg Carvedilol (Coreg) 12.5 mg PO BID [facility] Last Admin: 08/23/18 11:02 Dose: 12.5 mg Docusate Sodium (Colace) 100 mg PO DAILY PRN PRN Reason: Constipation Ferrous Sulfate (Feosol) 325 mg PO DAILY [facility] Last Admin: 08/23/18 11:02 Dose: 325 mg Guaifenesin (Mucinex La) 600 mg PO Q12 [facility] Last Admin: 08/23/18 11:04 Dose: 600 mg Levetiracetam (Keppra) 500 mg PO BID [facility] Last Admin: 08/23/18 11:04 Dose: 500 mg Nystatin (Nystatin Oral Susp) 5 ml PO QID [facility] Last Admin: 08/23/18 13:39 Dose: 5 ml Pantoprazole Sodium (Protonix Ec Tab) 40 mg PO DAILY [facility] Last Admin: 08/23/18 11:04 Dose: 40 mg Polyethylene Glycol (Miralax) 17 gm PO DAILY PRN PRN Reason: Constipation Prednisone (Prednisone Tab) 20 mg PO DAILY [facility] Stop: 08/26/18 06:00 Last Admin: 08/23/18 11:04 Dose: 20 mg Tamsulosin HCl (Flomax) 0.8 mg PO DAILY [facility] Last Admin: 08/23/18 11:03 Dose: 0.8 mg - Labs Labs: 08/23/18 05:40 08/22/18 05:00
--- NOTE | 2018-08-23 19:35 | CP.PCM.PN ---
Subjective - Date & Time of Evaluation Date of Evaluation: 08/23/18 Time of Evaluation: 16:00 - Subjective Subjective: No complaints, at bedside. No bleeding Objective - Vital Signs/Intake and Output Vital Signs (last 24 hours): Temp Pulse Resp BP Pulse Ox 98.1 F 63 20 157/79 H 100 08/23/18 15:47 08/23/18 17:13 08/23/18 15:47 08/23/18 17:13 08/23/18 15:47 - Medications Medications: Current Medications Apixaban (Eliquis) 2.5 mg PO BID [facility]; Protocol Last Admin: 08/23/18 17:13 Dose: 2.5 mg Atorvastatin Calcium (Lipitor) 10 mg PO HS [facility] Last Admin: 08/22/18 21:19 Dose: 10 mg Carvedilol (Coreg) 12.5 mg PO BID [facility] Last Admin: 08/23/18 17:13 Dose: 12.5 mg Docusate Sodium (Colace) 100 mg PO DAILY PRN PRN Reason: Constipation Ferrous Sulfate (Feosol) 325 mg PO DAILY [facility] Last Admin: 08/23/18 11:02 Dose: 325 mg Guaifenesin (Mucinex La) 600 mg PO Q12 [facility] Last Admin: 08/23/18 11:04 Dose: 600 mg Levetiracetam (Keppra) 500 mg PO BID [facility] Last Admin: 08/23/18 17:14 Dose: 500 mg Nystatin (Nystatin Oral Susp) 5 ml PO QID [facility] Last Admin: 08/23/18 17:14 Dose: 5 ml Pantoprazole Sodium (Protonix Ec Tab) 40 mg PO DAILY [facility] Last Admin: 08/23/18 11:04 Dose: 40 mg Polyethylene Glycol (Miralax) 17 gm PO DAILY PRN PRN Reason: Constipation Prednisone (Prednisone Tab) 20 mg PO DAILY [facility] Stop: 08/26/18 06:00 Last Admin: 08/23/18 11:04 Dose: 20 mg Tamsulosin HCl (Flomax) 0.8 mg PO DAILY [facility] Last Admin: 08/23/18 11:03 Dose: 0.8 mg - Labs Labs: 08/23/18 05:40 08/22/18 05:00 - Head Exam Head Exam: ATRAUMATIC - Eye Exam Eye Exam: Normal appearance - ENT Exam ENT Exam: Mucous Membranes Dry - Respiratory Exam Respiratory Exam: NORMAL BREATHING PATTERN - Cardiovascular Exam Cardiovascular Exam: +S1, +S2 - GI/Abdominal Exam GI & Abdominal Exam: Normal Bowel Sounds Assessment and Plan (1) Pulmonary embolism Assessment & Plan: with DVT - likely provoked from immobility s/p IVC filter placement on Eliquis 2.5mg BID - dose reduced due to hx of GI bleeding Status: Acute (2) Anemia Assessment & Plan: chronic disease and CKD prior iron deficiency anemia from chronic GI blood loss; no current evidence of bleeding Status: Chronic
[2018-08-24] MEDS: guaiFENesin 600 mg ER Tab PO SCH ×2 (08:58→21:11)
[2018-08-24] MEDS: Pantoprazole 40 mg EC Tab PO SCH (08:58)
[2018-08-24] MEDS: Nystatin 100,000 Units/ml Oral Susp 5 ml UD PO SCH ×4 (08:58→21:12)
--- NOTE | 2018-08-24 12:55 | CP.PCM.PN ---
Subjective - Date & Time of Evaluation Date of Evaluation: 08/24/18 Time of Evaluation: 12:54 - Subjective Subjective: RENAL s: seen and examined no complaints o: vss gen: nad sclera: anicteric op: clear neck: supple no thyromegaly lungs: cta b/l cv: +S1+s2 no rub abd: soft no organomegaly nt/nd ext: no edema neuro: A+OX3 no focal defeict psych: nml affect skin: No rash imp: ARF/ CKD III/ PE/ Anemia/ UTI/ hypertension plan: Cr remains stable yesterday no new labs today ? of ain - due to + urine eos' - however pt w/ lot of bacteria in urine and urine eos may be from uti , urine culture initially dirty sample - will reorder UA and ucx please make sure clean mid stream stample if pt d/c'd no need to continue prednisone as outpt bp on coreg hgb stable pe per heme Objective - Vital Signs/Intake and Output Vital Signs (last 24 hours): Temp Pulse Resp BP Pulse Ox 97.4 F L 61 18 136/74 100 08/24/18 08:00 08/24/18 08:59 08/24/18 08:00 08/24/18 08:59 08/24/18 08:00 - Medications Medications: Current Medications Apixaban (Eliquis) 2.5 mg PO BID [facility]; Protocol Last Admin: 08/24/18 08:57 Dose: 2.5 mg Atorvastatin Calcium (Lipitor) 10 mg PO HS [facility] Last Admin: 08/23/18 21:17 Dose: 10 mg Carvedilol (Coreg) 12.5 mg PO BID [facility] Last Admin: 08/24/18 08:59 Dose: 12.5 mg Docusate Sodium (Colace) 100 mg PO DAILY PRN PRN Reason: Constipation Last Admin: 08/23/18 21:17 Dose: 100 mg Ferrous Sulfate (Feosol) 325 mg PO DAILY [facility] Last Admin: 08/24/18 08:57 Dose: 325 mg Guaifenesin (Mucinex La) 600 mg PO Q12 [facility] Last Admin: 08/24/18 08:58 Dose: 600 mg Levetiracetam (Keppra) 500 mg PO BID [facility] Last Admin: 08/24/18 08:58 Dose: 500 mg Nystatin (Nystatin Oral Susp) 5 ml PO QID [facility] Last Admin: 08/24/18 08:58 Dose: 5 ml Pantoprazole Sodium (Protonix Ec Tab) 40 mg PO DAILY [facility] Last Admin: 08/24/18 08:58 Dose: 40 mg Polyethylene Glycol (Miralax) 17 gm PO DAILY PRN PRN Reason: Constipation Prednisone (Prednisone Tab) 20 mg PO DAILY [facility] Stop: 08/26/18 06:00 Last Admin: 08/24/18 08:58 Dose: 20 mg Tamsulosin HCl (Flomax) 0.8 mg PO DAILY [facility] Last Admin: 08/24/18 08:57 Dose: 0.8 mg - Labs Labs: 08/23/18 05:40 08/22/18 05:00
--- NOTE | 2018-08-24 13:24 | CP.PCM.CON ---
History of Present Illness - History of Present Illness History of Present Illness: 78 year old male with multiple comorbidities was admitted with hypoxia and found to have bilateral pulmonary emboli. The patient was noted to have confusion at home and brought to the hospital. A CT angio of the chest revealed bilateral PE's with probable RV strain. he was recently found to have gross pyuria with put from penis Referred for ID eval for antibiotic management Past medical history: DM, CVA, seizure disorder, anemia (iron deficiency/anemia of CKD), GI bleeding, DM, CVA, seizures Past surgical history: None Family history: Denies Social history: Former tobacco Allergies: NKA Review of Systems - Review of Systems All systems: reviewed and no additional remarkable complaints except - Constitutional Constitutional: As Per HPI - EENT Eyes: absent: As Per HPI, Blind Spots, Blurred Vision, Change in Vision, Decreased Night Vision, Diplopia, Discharge, Dry Eye, Exophthalmos, Floaters, Irritation, Itchy Eyes, Loss of Peripheral Vision, Pain, Photophobia, Requires Corrective Lenses, Sees Flashes, Spots in Vision, Tunnel Vision, Other Visual Disturbances, Loss of Vision, Other Ears: absent: As Per HPI, Decreased Hearing, Ear Discharge, Ear Pain, Tinnitus, Abnormal Hearing, Disequilibrium, Dizziness, Other Nose/Mouth/Throat: absent: As Per HPI, Epistaxis, Nasal Congestion, Nasal Discharge, Nasal Obstruction, Nasal Trauma, Nose Pain, Post Nasal Drip, Sinus Pain, Sinus Pressure, Bleeding Gums, Change in Voice, Dental Pain, Dry Mouth, Dysphagia, Halitosis, Hoarsness, Lip Swelling, Mouth Lesions, Mouth Pain, Odynophagia, Sore Throat, Throat Swelling, Tongue Swelling, Facial Pain, Neck Pain, Neck Mass, Other - Cardiovascular Cardiovascular: As Per HPI - Respiratory Respiratory: As Per HPI, Cough, Dyspnea. absent: Stridor - Gastrointestinal Gastrointestinal: absent: As Per HPI, Abdominal Pain, Belching, Bloating, Change in Bowel Habits, Change in Stool Character, Coffee Ground Emesis, Constipation, Cramping, Diarrhea, Dyspepsia, Dysphagia, Early Satiety, Excessive Flatus, Fecal Incontinence, Heartburn, Hematemesis, Hematochezia, Loose Stools, Melena, Nausea, Odynophagia, Temesmus, Vomiting, Other - Genitourinary Genitourinary: As Per HPI - Musculoskeletal Musculoskeletal: absent: As Per HPI, Abnormal Gait, Arthralgias, Atrophy, Back Pain, Deformity, Joint Swelling, Limited Range of Motion, Loss of Height, Muscle Cramps, Muscle Weakness, Myalgias, Neck Pain, Numbness, Radiating Pain into Limb, Stiffness, Tingling, Other - Integumentary Integumentary: absent: As Per HPI, Acne, Alopecia, Bleeding Lesions, Change in Hair, Change in Nails, Change in Pigmentation, Changing Lesions, Dry Skin, Erythema, Furuncle, Hirsutism, Lesions, New Lesions, Non-Healing Lesions, Photosensitivity, Pruritus, Rash, Skin Pain, Skin Ulcer, Sores, Striae, Swel ling, Unusual Bruising, Wounds, Jaundice, Other - Neurological Neurological: absent: As Per HPI, Abnormal Gait, Abnormal Hearing, Abnormal Movements, Abnormal Speech, Behavioral Changes, Burning Sensations, Confusion, Convulsions, Disequilibrium, Dizziness, Numbness, Focal Weakness, Frequent Falls, Headaches, Lack of Coordination, Loss of Vision, Memory Loss, Paresthesias, Radicular Pain, Restless Legs, Sensory Deficit, Syncope, Tingling, Tremor, Vertigo, Weakness, Other Visual Disturbances, Other - Psychiatric Psychiatric: absent: As Per HPI, Abnormal Sleep Pattern, Anhedonia, Anxiety, Auditory Hallucinations, Behavioral Changes, Change in Appetite, Change in Libido, Confusion, Depression, Difficulty Concentrating, Hallucinations, Homicidal Ideation, Hopelessness, Irritability, Memory Loss, Mood Swings, Panic Attacks, Paranoia, Suicidal Ideation, Visual Hallucinations, Tactile Hallucinations, Other - Endocrine Endocrine: absent: As Per HPI, Change in Body Appearance, Change in Libido, Cold Intolorance, Deepening of Voice, Excessive Sweating, Fatigue, Flushing, Heat Intolorance, Increase in Ring/Shoe/Hat Size, Palpitations, Polydipsia, Polyphagia, Polyuria, Other - Hematologic/Lymphatic Hematologic: absent: As Per HPI, Easy Bleeding, Easy Bruising, Lymphadenopathy, Other Past Patient History - Past Medical History & Family History Past Medical History?: Yes - Past Social History Smoking Status: Former Smoker Chewing Tobacco Use: No Cigar Use: No Alcohol: None Drugs: Denies Home Situation {Lives}: With Family - CARDIAC Hx Hypercholesterolemia: Yes Hx Hypertension: Yes - PULMONARY Hx Respiratory Disorders: No - NEUROLOGICAL HX Cerebrovascular Accident: Yes - HEENT Hx HEENT Problems: No - RENAL Hx Chronic Kidney Disease: No - ENDOCRINE/METABOLIC Hx Diabetes Mellitus Type 2: Yes - HEMATOLOGICAL/ONCOLOGICAL Hx Anemia: Yes Hx Human Immunodeficiency Virus (HIV): No - INTEGUMENTARY Hx Dermatological Problems: No - MUSCULOSKELETAL/RHEUMATOLOGICAL Hx Arthritis: Yes - GASTROINTESTINAL Hx Constipation: Yes Hx Gastritis: Yes Hx Hemorrhoids: Yes Other/Comment: episode of GI bleed, gastritis related? - GENITOURINARY/GYNECOLOGICAL Hx Prostate Problems: Yes Other/Comment: urinary retention, bronson catheter inserted - PSYCHIATRIC Hx Psychophysiologic Disorder: No Hx Substance Use: No - SURGICAL HISTORY Hx Surgeries: No - ANESTHESIA Hx Anesthesia: No Hx Anesthesia Reactions: No Hx Malignant Hyperthermia: No Meds Home Medications: Home Medication List Medication Instructions Recorded Confirmed Type Apixaban [Eliquis] 2.5 mg PO BID #60 tablet 08/22/18 Rx Nystatin [Nystatin Oral Susp] 5 ml PO QID #24 udc 08/22/18 Rx guaiFENesin [Mucinex LA] 600 mg PO Q12 #10 tab 08/22/18 Rx predniSONE [predniSONE Tab] 20 mg PO DAILY #4 tab 08/22/18 Rx Allergies/Adverse Reactions: Allergies Allergy/AdvReac Type Severity Reaction Status Date / Time No Known Allergies Allergy Verified 06/02/18 18:28 - Medications Medications: Current Medications Apixaban (Eliquis) 2.5 mg PO BID [facility]; Protocol Last Admin: 08/24/18 08:57 Dose: 2.5 mg Atorvastatin Calcium (Lipitor) 10 mg PO HS [facility] Last Admin: 08/23/18 21:17 Dose: 10 mg Carvedilol (Coreg) 12.5 mg PO BID [facility] Last Admin: 08/24/18 08:59 Dose: 12.5 mg Docusate Sodium (Colace) 100 mg PO DAILY PRN PRN Reason: Constipation Last Admin: 08/23/18 21:17 Dose: 100 mg Ferrous Sulfate (Feosol) 325 mg PO DAILY [facility] Last Admin: 08/24/18 08:57 Dose: 325 mg Guaifenesin (Mucinex La) 600 mg PO Q12 [facility] Last Admin: 08/24/18 08:58 Dose: 600 mg Levetiracetam (Keppra) 500 mg PO BID [facility] Last Admin: 08/24/18 08:58 Dose: 500 mg Metformin HCl (Glucophage) 500 mg PO TID [facility] Nystatin (Nystatin Oral Susp) 5 ml PO QID [facility] Last Admin: 08/24/18 13:17 Dose: 5 ml Pantoprazole Sodium (Protonix Ec Tab) 40 mg PO DAILY [facility] Last Admin: 08/24/18 08:58 Dose: 40 mg Polyethylene Glycol (Miralax) 17 gm PO DAILY PRN PRN Reason: Constipation Prednisone (Prednisone Tab) 20 mg PO DAILY [facility] Stop: 08/26/18 06:00 Last Admin: 08/24/18 08:58 Dose: 20 mg Tamsulosin HCl (Flomax) 0.8 mg PO DAILY [facility] Last Admin: 08/24/18 08:57 Dose: 0.8 mg Physical Exam - Constitutional Appears: Non-toxic, Confused, Cachectic, Chronically Ill - Head Exam Head Exam: ATRAUMATIC, NORMAL INSPECTION, NORMOCEPHALIC - Eye Exam Eye Exam: PERRL. absent: Scleral icterus - ENT Exam ENT Exam: Mucous Membranes Dry, Normal External Ear Exam, Normal Oropharynx - Neck Exam Neck exam: Negative for: Lymphadenopathy - Respiratory Exam Respiratory Exam: Decreased Breath Sounds, Prolonged Expiratory Phase, Rhonchi - Cardiovascular Exam Cardiovascular Exam: REGULAR RHYTHM, +S1, +S2 - GI/Abdominal Exam GI & Abdominal Exam: Diminished Bowel Sounds, Soft. absent: Tenderness - Rectal Exam Rectal Exam: Deferred - Exam Exam: NORMAL INSPECTION - Extremities Exam Extremities exam: Positive for: pedal pulses present. Negative for: calf tenderness, pedal edema, tenderness - Back Exam Back exam: absent: CVA tenderness (L), CVA tenderness (R), paraspinal tenderness - Neurological Exam Neurological exam: Altered, CN II-XII Intact, Motor Sensory Deficit - Psychiatric Exam Psychiatric exam: Depressed - Skin Skin Exam: Dry Results - Vital Signs Recent Vital Signs: Last Vital Signs Temp 97.4 F L 08/24/18 08:00 Pulse 61 08/24/18 08:59 Resp 18 08/24/18 08:00 BP 136/74 08/24/18 08:59 Pulse Ox 100 08/24/18 08:00 - Labs Result Diagrams: 08/23/18 05:40 08/22/18 05:00 Assessment & Plan (1) Hypoxemia Status: Acute Priority: High (2) Pulmonary embolism Status: Acute Priority: High (3) Pulmonary hypertension Status: Suspected Priority: High (4) Acute kidney injury Status: Acute (5) Cough Status: Acute (6) Dehydration Status: Acute Priority: High - Assessment and Plan (Free Text) Assessment: 78 yo male with multiple health conditions is admitted for acute PE Now has gross pyuria likely secondary to UTI ? prostatitis await cultures May need eval will follow
[2018-08-24] MEDS: cefTRIAXone 2 GM in Sodium Chloride 0.9% 100 ML IVPB SCH (16:38)
--- NOTE | 2018-08-24 18:03 | CP.PCM.PN ---
Subjective - Date & Time of Evaluation Date of Evaluation: 08/24/18 Time of Evaluation: 22:22 - Subjective Subjective: Above noted Objective - Vital Signs/Intake and Output Vital Signs (last 24 hours): Temp Pulse Resp BP Pulse Ox 97.7 F 61 20 132/72 100 08/24/18 16:41 08/24/18 16:41 08/24/18 16:41 08/24/18 16:41 08/24/18 16:41 - Medications Medications: Current Medications Apixaban (Eliquis) 2.5 mg PO BID [facility]; Protocol Last Admin: 08/24/18 16:34 Dose: 2.5 mg Atorvastatin Calcium (Lipitor) 10 mg PO HS [facility] Last Admin: 08/23/18 21:17 Dose: 10 mg Carvedilol (Coreg) 12.5 mg PO BID [facility] Last Admin: 08/24/18 16:38 Dose: 12.5 mg Docusate Sodium (Colace) 100 mg PO DAILY PRN PRN Reason: Constipation Last Admin: 08/23/18 21:17 Dose: 100 mg Ferrous Sulfate (Feosol) 325 mg PO DAILY [facility] Last Admin: 08/24/18 08:57 Dose: 325 mg Guaifenesin (Mucinex La) 600 mg PO Q12 [facility] Last Admin: 08/24/18 08:58 Dose: 600 mg Ceftriaxone Sodium 2 gm/ (Sodium Chloride) 100 mls @ 100 mls/hr IVPB DAILY [facility]; Protocol Last Admin: 08/24/18 16:38 Dose: 100 mls/hr Levetiracetam (Keppra) 500 mg PO BID [facility] Last Admin: 08/24/18 16:34 Dose: 500 mg Metformin HCl (Glucophage) 500 mg PO TID [facility] Last Admin: 08/24/18 16:33 Dose: 500 mg Nystatin (Nystatin Oral Susp) 5 ml PO QID [facility] Last Admin: 08/24/18 16:34 Dose: 5 ml Pantoprazole Sodium (Protonix Ec Tab) 40 mg PO DAILY [facility] Last Admin: 08/24/18 08:58 Dose: 40 mg Polyethylene Glycol (Miralax) 17 gm PO DAILY PRN PRN Reason: Constipation Prednisone (Prednisone Tab) 20 mg PO DAILY [facility] Stop: 08/26/18 06:00 Last Admin: 08/24/18 08:58 Dose: 20 mg Tamsulosin HCl (Flomax) 0.8 mg PO DAILY [facility] Last Admin: 08/24/18 08:57 Dose: 0.8 mg - Labs Labs: 08/23/18 05:40 08/22/18 05:00 - Respiratory Exam Respiratory Exam: NORMAL BREATHING PATTERN - Cardiovascular Exam Cardiovascular Exam: REGULAR RHYTHM - GI/Abdominal Exam GI & Abdominal Exam: Normal Bowel Sounds Assessment and Plan - Assessment and Plan (Free Text) Assessment: Gross pyuria UTI vs Prostatitis ID cultures Neurogenic bladder indwelling Lennon catheter Flomax US Bladder wnl Cystoscopy done Urology PTE DVT Hx Anemia GI Bleed? 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
[2018-08-24 20:20] LABS: URINE BACTERIA MANY (<OCC); URINE BILIRUBIN NEGATIVE (NEGATIVE); URINE BLOOD NEGATIVE (NEGATIVE); URINE CLARITY CLOUDY (Clear); URINE COLOR YELLOW (YELLOW); URINE GLUCOSE (UA) >=500 mg/dL (Normal); URINE LEUKOCYTE ESTERASE LARGE Leu/uL (Negative); URINE PROTEIN 100 mg/dL (NEGATIVE); URINE UROBILINOGEN 0.2-1.0 mg/dL (0.2-1.0)
[2018-08-25 05:46] LABS: BASO % 0.4 % (0.0-2.0); EOS # 0.1 K/uL (0.0-0.7); EOS % 1.3 % (0.0-4.0); HEMOGLOBIN 10.5 g/dL (12.0-18.0); LYMPH # 1.7 K/uL (1.0-4.3); LYMPH % 15.4 % (20.0-40.0); MEAN CELL VOLUME 94.3 fl (80.0-94.0); MEAN CORPUSCULAR HEMOGLOBIN 32.2 pg (27.0-31.0); MEAN CORPUSCULAR HGB CONC 34.1 g/dL (33.0-37.0); MEAN PLATELET VOLUME 7.3 fl (7.2-11.7); MONO # 0.9 K/uL (0.0-0.8); NEUT # 8.2 K/uL (1.8-7.0); NEUT % 74.9 % (50.0-75.0); RBC 3.27 Mil/uL (4.40-5.90); RED CELL DISTRIBUTION WIDTH 15.4 % (11.5-14.5)
[2018-08-25 08:25] LABS: ALB/GLOB RATIO 0.8 (1.0-2.1); ALBUMIN 3.2 g/dL (3.5-5.0); CALCIUM 9.2 mg/dL (8.4-10.2)
[2018-08-25] MEDS: guaiFENesin 600 mg ER Tab PO SCH ×2 (08:40→22:02)
[2018-08-25] MEDS: Nystatin 100,000 Units/ml Oral Susp 5 ml UD PO SCH ×4 (08:40→22:02)
[2018-08-25] MEDS: Pantoprazole 40 mg EC Tab PO SCH (08:42)
[2018-08-25] MEDS: cefTRIAXone 2 GM in Sodium Chloride 0.9% 100 ML IVPB SCH (08:42)
--- NOTE | 2018-08-25 11:09 | CP.PCM.PN ---
Subjective - Date & Time of Evaluation Date of Evaluation: 08/25/18 Time of Evaluation: 08:00 - Subjective Subjective: weak bedridden nad Objective - Vital Signs/Intake and Output Vital Signs (last 24 hours): Temp Pulse Resp BP Pulse Ox 98 F 75 20 161/77 H 100 08/25/18 08:28 08/25/18 08:41 08/25/18 08:28 08/25/18 08:41 08/25/18 08:28 Intake and Output: 08/25/18 08/25/18 06:59 18:59 Intake Total 850 Output Total 1100 Balance -250 - Medications Medications: Current Medications Apixaban (Eliquis) 2.5 mg PO BID [facility]; Protocol Last Admin: 08/25/18 08:41 Dose: 2.5 mg Atorvastatin Calcium (Lipitor) 10 mg PO HS [facility] Last Admin: 08/24/18 21:11 Dose: 10 mg Carvedilol (Coreg) 12.5 mg PO BID [facility] Last Admin: 08/25/18 08:41 Dose: 12.5 mg Docusate Sodium (Colace) 100 mg PO DAILY PRN PRN Reason: Constipation Last Admin: 08/25/18 08:40 Dose: 100 mg Ferrous Sulfate (Feosol) 325 mg PO DAILY [facility] Last Admin: 08/25/18 08:40 Dose: 325 mg Guaifenesin (Mucinex La) 600 mg PO Q12 [facility] Last Admin: 08/25/18 08:40 Dose: 600 mg Ceftriaxone Sodium 2 gm/ (Sodium Chloride) 100 mls @ 100 mls/hr IVPB DAILY [facility]; Protocol Last Admin: 08/25/18 08:42 Dose: 100 mls/hr Levetiracetam (Keppra) 500 mg PO BID [facility] Last Admin: 08/25/18 08:41 Dose: 500 mg Losartan Potassium (Cozaar) 50 mg PO DAILY [facility] Metformin HCl (Glucophage) 500 mg PO TID [facility] Last Admin: 08/25/18 08:40 Dose: 500 mg Nystatin (Nystatin Oral Susp) 5 ml PO QID [facility] Last Admin: 08/25/18 08:40 Dose: 5 ml Pantoprazole Sodium (Protonix Ec Tab) 40 mg PO DAILY [facility] Last Admin: 08/25/18 08:42 Dose: 40 mg Polyethylene Glycol (Miralax) 17 gm PO DAILY PRN PRN Reason: Constipation Tamsulosin HCl (Flomax) 0.8 mg PO DAILY [facility] Last Admin: 08/25/18 08:41 Dose: 0.8 mg - Labs Labs: 08/25/18 04:00 08/25/18 05:00 - Constitutional Appears: Non-toxic, Chronically Ill - Head Exam Head Exam: NORMOCEPHALIC - Eye Exam Eye Exam: absent: Scleral icterus - ENT Exam ENT Exam: Mucous Membranes Dry - Neck Exam Neck Exam: absent: Lymphadenopathy - Respiratory Exam Respiratory Exam: Decreased Breath Sounds - Cardiovascular Exam Cardiovascular Exam: REGULAR RHYTHM - GI/Abdominal Exam GI & Abdominal Exam: Distended, Soft - Rectal Exam Rectal Exam: Deferred Assessment and Plan (1) Hypoxemia Status: Acute (2) Pulmonary embolism Status: Acute (3) Pulmonary hypertension Status: Suspected (4) Acute kidney injury Status: Acute (5) Cough Status: Acute (6) Dehydration Status: Acute
--- NOTE | 2018-08-25 12:10 | CP.PCM.PCO ---
Assessment & Plan - Assessment and Plan (Free Text) Assessment: patient will require 6 more days of Rocephin 2gm iv daily
[2018-08-25 12:22] LABS: URINE BACTERIA MANY (<OCC); URINE BILIRUBIN NEGATIVE (NEGATIVE); URINE BLOOD SMALL (NEGATIVE); URINE CLARITY TURBID (Clear); URINE COLOR AMBER (YELLOW); URINE GLUCOSE (UA) NEG (Normal); URINE LEUKOCYTE ESTERASE LARGE Leu/uL (Negative); URINE PROTEIN 100 mg/dL (NEGATIVE); URINE UROBILINOGEN 0.2-1.0 mg/dL (0.2-1.0)
--- NOTE | 2018-08-25 14:48 | CP.PCM.PN ---
Subjective - Date & Time of Evaluation Date of Evaluation: 08/25/18 Time of Evaluation: 14:47 - Subjective Subjective: RENAL FOLLOW UP s: seen and examined no complaints. no CP/SOB/nausea/vomitting. o/e: vss gen: nad sclera: anicteric op: clear neck: supple no thyromegaly lungs: cta b/l cv: +S1+s2 no rub abd: soft no organomegaly nt/nd ext: no edema neuro: A+OX3 no focal defeict psych: nml affect skin: No rash imp: ARF/ CKD III/ PE/ Anemia/ UTI/ hypertension plan: Cr remains stable y ? of ain - due to + urine eos' - however pt w/ lot of bacteria in urine and urine eos may be from uti , urine culture initially dirty sample - will reorder UA and ucx please make sure clean mid stream stample d/c prednisone as cr only slightly higher than baseline. bp on coreg. added losartan hgb stable pe per heme d/w primary team. pt stable from renal perspective Objective - Vital Signs/Intake and Output Vital Signs (last 24 hours): Temp Pulse Resp BP Pulse Ox 98.2 F 65 20 131/73 100 08/25/18 13:00 08/25/18 13:00 08/25/18 13:00 08/25/18 13:00 08/25/18 13:00 Intake and Output: 08/25/18 08/25/18 06:59 18:59 Intake Total 850 Output Total 1100 Balance -250 - Medications Medications: Current Medications Apixaban (Eliquis) 2.5 mg PO BID [facility]; Protocol Last Admin: 08/25/18 08:41 Dose: 2.5 mg Atorvastatin Calcium (Lipitor) 10 mg PO HS [facility] Last Admin: 08/24/18 21:11 Dose: 10 mg Carvedilol (Coreg) 12.5 mg PO BID [facility] Last Admin: 08/25/18 08:41 Dose: 12.5 mg Docusate Sodium (Colace) 100 mg PO DAILY PRN PRN Reason: Constipation Last Admin: 08/25/18 08:40 Dose: 100 mg Ferrous Sulfate (Feosol) 325 mg PO DAILY [facility] Last Admin: 08/25/18 08:40 Dose: 325 mg Guaifenesin (Mucinex La) 600 mg PO Q12 [facility] Last Admin: 08/25/18 08:40 Dose: 600 mg Ceftriaxone Sodium 2 gm/ (Sodium Chloride) 100 mls @ 100 mls/hr IVPB DAILY [facility]; Protocol Last Admin: 08/25/18 08:42 Dose: 100 mls/hr Levetiracetam (Keppra) 500 mg PO BID [facility] Last Admin: 08/25/18 08:41 Dose: 500 mg Losartan Potassium (Cozaar) 50 mg PO DAILY [facility] Metformin HCl (Glucophage) 500 mg PO TID [facility] Last Admin: 08/25/18 08:40 Dose: 500 mg Nystatin (Nystatin Oral Susp) 5 ml PO QID [facility] Last Admin: 08/25/18 08:40 Dose: 5 ml Pantoprazole Sodium (Protonix Ec Tab) 40 mg PO DAILY [facility] Last Admin: 08/25/18 08:42 Dose: 40 mg Polyethylene Glycol (Miralax) 17 gm PO DAILY PRN PRN Reason: Constipation Tamsulosin HCl (Flomax) 0.8 mg PO DAILY [facility] Last Admin: 08/25/18 08:41 Dose: 0.8 mg - Labs Labs: 08/25/18 04:00 08/25/18 05:00
--- NOTE | 2018-08-25 20:34 | CP.PCM.PN ---
Subjective - Date & Time of Evaluation Date of Evaluation: 08/25/18 Time of Evaluation: 22:22 - Subjective Subjective: Above noted Objective - Vital Signs/Intake and Output Vital Signs (last 24 hours): Temp Pulse Resp BP Pulse Ox 97.8 F 64 20 152/71 H 99 08/25/18 19:24 08/25/18 19:24 08/25/18 19:24 08/25/18 19:24 08/25/18 19:24 Intake and Output: 08/25/18 08/26/18 18:59 06:59 Intake Total 850 1300 Output Total 1100 800 Balance -250 500 - Medications Medications: Current Medications Apixaban (Eliquis) 2.5 mg PO BID [facility]; Protocol Last Admin: 08/25/18 18:01 Dose: 2.5 mg Atorvastatin Calcium (Lipitor) 10 mg PO HS [facility] Last Admin: 08/24/18 21:11 Dose: 10 mg Carvedilol (Coreg) 12.5 mg PO BID [facility] Last Admin: 08/25/18 18:00 Dose: 12.5 mg Docusate Sodium (Colace) 100 mg PO DAILY PRN PRN Reason: Constipation Last Admin: 08/25/18 08:40 Dose: 100 mg Ferrous Sulfate (Feosol) 325 mg PO DAILY [facility] Last Admin: 08/25/18 08:40 Dose: 325 mg Guaifenesin (Mucinex La) 600 mg PO Q12 [facility] Last Admin: 08/25/18 08:40 Dose: 600 mg Ceftriaxone Sodium 2 gm/ (Sodium Chloride) 100 mls @ 100 mls/hr IVPB DAILY [facility]; Protocol Last Admin: 08/25/18 08:42 Dose: 100 mls/hr Levetiracetam (Keppra) 500 mg PO BID [facility] Last Admin: 08/25/18 18:02 Dose: 500 mg Losartan Potassium (Cozaar) 50 mg PO DAILY [facility] Last Admin: 08/25/18 13:25 Dose: 50 mg Metformin HCl (Glucophage) 500 mg PO TID [facility] Last Admin: 08/25/18 18:00 Dose: 500 mg Nystatin (Nystatin Oral Susp) 5 ml PO QID [facility] Last Admin: 08/25/18 18:01 Dose: 5 ml Pantoprazole Sodium (Protonix Ec Tab) 40 mg PO DAILY [facility] Last Admin: 08/25/18 08:42 Dose: 40 mg Polyethylene Glycol (Miralax) 17 gm PO DAILY PRN PRN Reason: Constipation Last Admin: 08/25/18 15:37 Dose: 17 gm Tamsulosin HCl (Flomax) 0.8 mg PO DAILY [facility] Last Admin: 08/25/18 08:41 Dose: 0.8 mg - Labs Labs: 08/25/18 04:00 08/25/18 05:00 - Respiratory Exam Respiratory Exam: NORMAL BREATHING PATTERN - Cardiovascular Exam Cardiovascular Exam: REGULAR RHYTHM - GI/Abdominal Exam GI & Abdominal Exam: Normal Bowel Sounds Assessment and Plan - Assessment and Plan (Free Text) Assessment: Gross pyuria UTI vs Prostatitis ID cultures IV ABX Neurogenic bladder indwelling Lennon catheter Flomax US Bladder wnl Cystoscopy done Urology PTE DVT Hx Anemia GI Bleed? 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
--- NOTE | 2018-08-25 20:35 | CP.PCM.PN ---
Subjective - Date & Time of Evaluation Date of Evaluation: 08/25/18 Time of Evaluation: 22:22 - Subjective Subjective: Above noted Objective - Vital Signs/Intake and Output Vital Signs (last 24 hours): Temp Pulse Resp BP Pulse Ox 97.8 F 64 20 152/71 H 99 08/25/18 19:24 08/25/18 19:24 08/25/18 19:24 08/25/18 19:24 08/25/18 19:24 Intake and Output: 08/25/18 08/26/18 18:59 06:59 Intake Total 850 1300 Output Total 1100 800 Balance -250 500 - Medications Medications: Current Medications Apixaban (Eliquis) 2.5 mg PO BID [facility]; Protocol Last Admin: 08/25/18 18:01 Dose: 2.5 mg Atorvastatin Calcium (Lipitor) 10 mg PO HS [facility] Last Admin: 08/24/18 21:11 Dose: 10 mg Carvedilol (Coreg) 12.5 mg PO BID [facility] Last Admin: 08/25/18 18:00 Dose: 12.5 mg Docusate Sodium (Colace) 100 mg PO DAILY PRN PRN Reason: Constipation Last Admin: 08/25/18 08:40 Dose: 100 mg Ferrous Sulfate (Feosol) 325 mg PO DAILY [facility] Last Admin: 08/25/18 08:40 Dose: 325 mg Guaifenesin (Mucinex La) 600 mg PO Q12 [facility] Last Admin: 08/25/18 08:40 Dose: 600 mg Ceftriaxone Sodium 2 gm/ (Sodium Chloride) 100 mls @ 100 mls/hr IVPB DAILY [facility]; Protocol Last Admin: 08/25/18 08:42 Dose: 100 mls/hr Levetiracetam (Keppra) 500 mg PO BID [facility] Last Admin: 08/25/18 18:02 Dose: 500 mg Losartan Potassium (Cozaar) 50 mg PO DAILY [facility] Last Admin: 08/25/18 13:25 Dose: 50 mg Metformin HCl (Glucophage) 500 mg PO TID [facility] Last Admin: 08/25/18 18:00 Dose: 500 mg Nystatin (Nystatin Oral Susp) 5 ml PO QID [facility] Last Admin: 08/25/18 18:01 Dose: 5 ml Pantoprazole Sodium (Protonix Ec Tab) 40 mg PO DAILY [facility] Last Admin: 08/25/18 08:42 Dose: 40 mg Polyethylene Glycol (Miralax) 17 gm PO DAILY PRN PRN Reason: Constipation Last Admin: 08/25/18 15:37 Dose: 17 gm Tamsulosin HCl (Flomax) 0.8 mg PO DAILY [facility] Last Admin: 08/25/18 08:41 Dose: 0.8 mg - Labs Labs: 08/25/18 04:00 08/25/18 05:00
[2018-08-25 20:57] LABS: HEPATITIS B SURFACE AG Negative (NEGATIVE)
[2018-08-25 21:03] LABS: HEPATITIS A IGM NEGATIVE (NEGATIVE); HEPATITIS B CORE AB NEGATIVE (NEGATIVE)
[2018-08-25 21:14] LABS: HEPATITIS C ANTIBODY NEGATIVE (NEGATIVE)
--- NOTE | 2018-08-25 22:38 | CP.PCM.PN ---
Subjective - Date & Time of Evaluation Date of Evaluation: 08/25/18 Time of Evaluation: 20:00 - Subjective Subjective: No complaints. Objective - Vital Signs/Intake and Output Vital Signs (last 24 hours): Temp Pulse Resp BP Pulse Ox 97.8 F 64 20 152/71 H 99 08/25/18 19:24 08/25/18 19:24 08/25/18 19:24 08/25/18 19:24 08/25/18 19:24 Intake and Output: 08/25/18 08/26/18 18:59 06:59 Intake Total 850 1300 Output Total 1100 800 Balance -250 500 - Medications Medications: Current Medications Apixaban (Eliquis) 2.5 mg PO BID [facility]; Protocol Last Admin: 08/25/18 18:01 Dose: 2.5 mg Atorvastatin Calcium (Lipitor) 10 mg PO HS [facility] Last Admin: 08/25/18 22:02 Dose: 10 mg Carvedilol (Coreg) 12.5 mg PO BID [facility] Last Admin: 08/25/18 18:00 Dose: 12.5 mg Docusate Sodium (Colace) 100 mg PO DAILY PRN PRN Reason: Constipation Last Admin: 08/25/18 08:40 Dose: 100 mg Ferrous Sulfate (Feosol) 325 mg PO DAILY [facility] Last Admin: 08/25/18 08:40 Dose: 325 mg Guaifenesin (Mucinex La) 600 mg PO Q12 [facility] Last Admin: 08/25/18 22:02 Dose: 600 mg Ceftriaxone Sodium 2 gm/ (Sodium Chloride) 100 mls @ 100 mls/hr IVPB DAILY [facility]; Protocol Last Admin: 08/25/18 08:42 Dose: 100 mls/hr Levetiracetam (Keppra) 500 mg PO BID [facility] Last Admin: 08/25/18 18:02 Dose: 500 mg Losartan Potassium (Cozaar) 50 mg PO DAILY [facility] Last Admin: 08/25/18 13:25 Dose: 50 mg Metformin HCl (Glucophage) 500 mg PO TID [facility] Last Admin: 08/25/18 18:00 Dose: 500 mg Nystatin (Nystatin Oral Susp) 5 ml PO QID [facility] Last Admin: 08/25/18 22:02 Dose: 5 ml Pantoprazole Sodium (Protonix Ec Tab) 40 mg PO DAILY [facility] Last Admin: 08/25/18 08:42 Dose: 40 mg Polyethylene Glycol (Miralax) 17 gm PO DAILY PRN PRN Reason: Constipation Last Admin: 08/25/18 15:37 Dose: 17 gm Tamsulosin HCl (Flomax) 0.8 mg PO DAILY [facility] Last Admin: 08/25/18 08:41 Dose: 0.8 mg - Labs Labs: 08/25/18 04:00 08/25/18 05:00 - Head Exam Head Exam: ATRAUMATIC - Eye Exam Eye Exam: Normal appearance - ENT Exam ENT Exam: Mucous Membranes Dry - Respiratory Exam Respiratory Exam: NORMAL BREATHING PATTERN - Cardiovascular Exam Cardiovascular Exam: +S1, +S2 - GI/Abdominal Exam GI & Abdominal Exam: Normal Bowel Sounds Assessment and Plan (1) Pulmonary embolism Assessment & Plan: with DVT - likely provoked from immobility s/p IVC filter placement on Eliquis 2.5mg BID - dose reduced due to hx of GI bleeding Status: Acute (2) Anemia Assessment & Plan: chronic disease and CKD prior iron deficiency anemia from chronic GI blood loss; no current evidence of bleeding Status: Chronic
[2018-08-26] MEDS: Pantoprazole 40 mg EC Tab PO SCH (08:43)
[2018-08-26] MEDS: guaiFENesin 600 mg ER Tab PO SCH (08:43)
[2018-08-26] MEDS: Nystatin 100,000 Units/ml Oral Susp 5 ml UD PO SCH ×3 (08:43→17:14)
[2018-08-26 09:33] LABS: HEMOGLOBIN 10.6 g/dL (12.0-18.0); MEAN CELL VOLUME 93.4 fl (80.0-94.0); MEAN CORPUSCULAR HEMOGLOBIN 31.5 pg (27.0-31.0); MEAN CORPUSCULAR HGB CONC 33.7 g/dL (33.0-37.0); RBC 3.35 Mil/uL (4.40-5.90); RED CELL DISTRIBUTION WIDTH 15.5 % (11.5-14.5); WHITE BLOOD COUNT 10.5 K/uL (4.8-10.8)
[2018-08-26 09:58] LABS: CALCIUM 9.3 mg/dL (8.4-10.2)
--- NOTE | 2018-08-26 10:54 | CP.PCM.PN ---
Subjective - Date & Time of Evaluation Date of Evaluation: 08/26/18 Time of Evaluation: 09:00 - Subjective Subjective: afeb on IV rx antibiotic in progress cultures urine + Objective - Vital Signs/Intake and Output Vital Signs (last 24 hours): Temp Pulse Resp BP Pulse Ox 98.0 F 66 20 137/74 99 08/26/18 08:29 08/26/18 08:29 08/26/18 08:29 08/26/18 08:29 08/26/18 08:29 Intake and Output: 08/26/18 08/26/18 06:59 18:59 Intake Total 1300 Output Total 800 Balance 500 - Medications Medications: Current Medications Apixaban (Eliquis) 2.5 mg PO BID [facility]; Protocol Last Admin: 08/26/18 08:43 Dose: 2.5 mg Atorvastatin Calcium (Lipitor) 10 mg PO HS [facility] Last Admin: 08/25/18 22:02 Dose: 10 mg Carvedilol (Coreg) 12.5 mg PO BID [facility] Last Admin: 08/26/18 08:43 Dose: 12.5 mg Docusate Sodium (Colace) 100 mg PO DAILY PRN PRN Reason: Constipation Last Admin: 08/25/18 08:40 Dose: 100 mg Ferrous Sulfate (Feosol) 325 mg PO DAILY [facility] Last Admin: 08/26/18 08:43 Dose: 325 mg Guaifenesin (Mucinex La) 600 mg PO Q12 [facility] Last Admin: 08/26/18 08:43 Dose: 600 mg Ceftriaxone Sodium 2 gm/ (Sodium Chloride) 100 mls @ 100 mls/hr IVPB DAILY [facility]; Protocol Last Admin: 08/25/18 08:42 Dose: 100 mls/hr Levetiracetam (Keppra) 500 mg PO BID [facility] Last Admin: 08/26/18 08:43 Dose: 500 mg Losartan Potassium (Cozaar) 50 mg PO DAILY [facility] Last Admin: 08/26/18 08:43 Dose: 50 mg Metformin HCl (Glucophage) 500 mg PO TID [facility] Last Admin: 08/26/18 08:43 Dose: 500 mg Nystatin (Nystatin Oral Susp) 5 ml PO QID [facility] Last Admin: 08/26/18 08:43 Dose: 5 ml Pantoprazole Sodium (Protonix Ec Tab) 40 mg PO DAILY [facility] Last Admin: 08/26/18 08:43 Dose: 40 mg Polyethylene Glycol (Miralax) 17 gm PO DAILY PRN PRN Reason: Constipation Last Admin: 08/25/18 15:37 Dose: 17 gm Tamsulosin HCl (Flomax) 0.8 mg PO DAILY [facility] Last Admin: 08/26/18 08:43 Dose: 0.8 mg - Labs Labs: 08/26/18 09:24 08/26/18 09:24 - Constitutional Appears: Non-toxic, Chronically Ill - Head Exam Head Exam: NORMOCEPHALIC - Eye Exam Eye Exam: absent: Nystagmus - ENT Exam ENT Exam: Mucous Membranes Dry - Neck Exam Neck Exam: absent: Lymphadenopathy - Respiratory Exam Respiratory Exam: Decreased Breath Sounds - Cardiovascular Exam Cardiovascular Exam: REGULAR RHYTHM - GI/Abdominal Exam GI & Abdominal Exam: Distended Assessment and Plan (1) Hypoxemia Status: Acute (2) Pulmonary embolism Status: Acute (3) Pulmonary hypertension Status: Suspected (4) Acute kidney injury Status: Acute (5) Cough Status: Acute (6) Dehydration Status: Acute
[2018-08-26] MEDS: cefTRIAXone 2 GM in Sodium Chloride 0.9% 100 ML IVPB SCH (12:57)
--- NOTE | 2018-08-26 15:23 | CP.PCM.PN ---
Subjective - Date & Time of Evaluation Date of Evaluation: 08/26/18 Time of Evaluation: 15:20 - Subjective Subjective: Seen on rounds earlier this morning. The patient is lying in bed comfortably. He does have a congested cough when coached. No sputum is expectorated. His vital signs have remained stable. His stool guaiac test yet been performed. His hemoglobin remained stable at 10.6. The neck is supple and trachea is midline. Breath sounds are well heard bilaterally with occasional scattered rhonchi. No audible wheezing. No bronchial breath sounds or egophony. Rare dry rales. Heart sounds are well heard and rhythm is regular. No dependent edema of the lower extremities. No calf tenderness. Continue current regimen using low-dose eloquent 2.5 mg twice daily. Monitor hemoglobin and obtain stool for occult blood. Objective - Vital Signs/Intake and Output Vital Signs (last 24 hours): Temp Pulse Resp BP Pulse Ox 97.8 F 71 18 139/69 99 08/26/18 12:20 08/26/18 12:20 08/26/18 12:20 08/26/18 12:20 08/26/18 12:20 - Medications Medications: Current Medications Apixaban (Eliquis) 2.5 mg PO BID [facility]; Protocol Last Admin: 08/26/18 08:43 Dose: 2.5 mg Atorvastatin Calcium (Lipitor) 10 mg PO HS [facility] Last Admin: 08/25/18 22:02 Dose: 10 mg Carvedilol (Coreg) 12.5 mg PO BID [facility] Last Admin: 08/26/18 08:43 Dose: 12.5 mg Docusate Sodium (Colace) 100 mg PO DAILY PRN PRN Reason: Constipation Last Admin: 08/25/18 08:40 Dose: 100 mg Ferrous Sulfate (Feosol) 325 mg PO DAILY [facility] [place] Last Admin: 08/26/18 08:43 Dose: 325 mg Guaifenesin (Mucinex La) 600 mg PO Q12 [facility] [place] Last Admin: 08/26/18 08:43 Dose: 600 mg Ceftriaxone Sodium 2 gm/ (Sodium Chloride) 100 mls @ 100 mls/hr IVPB DAILY [facility]; Protocol Last Admin: 08/26/18 12:57 Dose: 100 mls/hr Lactulose (Enulose) 20 gm PO DAILY PRN PRN Reason: Constipation Last Admin: 08/26/18 13:00 Dose: 20 gm Levetiracetam (Keppra) 500 mg PO BID [facility] Last Admin: 08/26/18 08:43 Dose: 500 mg Losartan Potassium (Cozaar) 50 mg PO DAILY [facility] Last Admin: 08/26/18 08:43 Dose: 50 mg Metformin HCl (Glucophage) 500 mg PO TID [facility] Last Admin: 08/26/18 13:06 Dose: 500 mg Nystatin (Nystatin Oral Susp) 5 ml PO QID [facility] Last Admin: 08/26/18 12:58 Dose: 5 ml Pantoprazole Sodium (Protonix Ec Tab) 40 mg PO DAILY [facility] Last Admin: 08/26/18 08:43 Dose: 40 mg Polyethylene Glycol (Miralax) 17 gm PO DAILY PRN PRN Reason: Constipation Last Admin: 08/25/18 15:37 Dose: 17 gm Tamsulosin HCl (Flomax) 0.8 mg PO DAILY [facility] Last Admin: 08/26/18 08:43 Dose: 0.8 mg - Labs Labs: 08/26/18 09:24 08/26/18 09:24 Assessment and Plan (1) Pulmonary embolism Status: Acute (2) Hypoxemia Status: Acute (3) Pulmonary hypertension Status: Suspected
[2018-08-26 16:00] VITALS: BP 119/74; PULSE 77; RESP 16; TEMP 98.2; O2SAT 100
--- NOTE | 2018-08-26 17:47 | CP.PCM.PN ---
Subjective - Date & Time of Evaluation Date of Evaluation: 08/26/18 Time of Evaluation: 17:46 - Subjective Subjective: RENAL FOLLOW UP s: seen and examined no complaints. o/e: vss gen: nad sclera: anicteric op: clear neck: supple no thyromegaly lungs: cta b/l cv: +S1+s2 no rub abd: soft no organomegaly nt/nd ext: no edema neuro: A+OX3 no focal defeict psych: nml affect skin: No rash imp: ARF/ CKD III/ PE/ Anemia/ UTI/ hypertension plan: Cr remains stable and slowly improving ? of ain bp continue current meds hgb stable pe per heme pt stable from renal perspective Objective - Vital Signs/Intake and Output Vital Signs (last 24 hours): Temp Pulse Resp BP Pulse Ox 98.2 F 77 16 119/74 100 08/26/18 16:00 08/26/18 16:00 08/26/18 16:00 08/26/18 16:00 08/26/18 16:00 Intake and Output: 08/26/18 08/26/18 06:59 18:59 Intake Total 1300 Output Total 800 Balance 500 - Medications Medications: Current Medications Apixaban (Eliquis) 2.5 mg PO BID [facility]; Protocol Last Admin: 08/26/18 17:14 Dose: 2.5 mg Atorvastatin Calcium (Lipitor) 10 mg PO HS [facility] Last Admin: 08/25/18 22:02 Dose: 10 mg Carvedilol (Coreg) 12.5 mg PO BID [facility] Last Admin: 08/26/18 17:14 Dose: 12.5 mg Docusate Sodium (Colace) 100 mg PO DAILY PRN PRN Reason: Constipation Last Admin: 08/25/18 08:40 Dose: 100 mg Ferrous Sulfate (Feosol) 325 mg PO DAILY [facility] Last Admin: 08/26/18 08:43 Dose: 325 mg Guaifenesin (Mucinex La) 600 mg PO Q12 [facility] Last Admin: 08/26/18 08:43 Dose: 600 mg Ceftriaxone Sodium 2 gm/ (Sodium Chloride) 100 mls @ 100 mls/hr IVPB DAILY [facility]; Protocol Last Admin: 08/26/18 12:57 Dose: 100 mls/hr Lactulose (Enulose) 20 gm PO DAILY PRN PRN Reason: Constipation Last Admin: 08/26/18 13:00 Dose: 20 gm Levetiracetam (Keppra) 500 mg PO BID [facility] Last Admin: 08/26/18 17:14 Dose: 500 mg Losartan Potassium (Cozaar) 50 mg PO DAILY [facility] Last Admin: 08/26/18 08:43 Dose: 50 mg Metformin HCl (Glucophage) 500 mg PO TID [facility] Last Admin: 08/26/18 17:14 Dose: 500 mg Nystatin (Nystatin Oral Susp) 5 ml PO QID [facility] Last Admin: 08/26/18 17:14 Dose: 5 ml Pantoprazole Sodium (Protonix Ec Tab) 40 mg PO DAILY [facility] Last Admin: 08/26/18 08:43 Dose: 40 mg Polyethylene Glycol (Miralax) 17 gm PO DAILY PRN PRN Reason: Constipation Last Admin: 08/25/18 15:37 Dose: 17 gm Tamsulosin HCl (Flomax) 0.8 mg PO DAILY [facility] Last Admin: 08/26/18 08:43 Dose: 0.8 mg - Labs Labs: 08/26/18 09:24 08/26/18 09:24
--- NOTE | 2018-08-27 00:16 | CP.PCM.PN ---
Subjective - Date & Time of Evaluation Date of Evaluation: 08/26/18 Time of Evaluation: 22:22 - Subjective Subjective: Above noted pending TCU approval Objective - Vital Signs/Intake and Output Vital Signs (last 24 hours): Temp Pulse Resp BP Pulse Ox 98.2 F 77 16 119/74 100 08/26/18 16:00 08/26/18 16:00 08/26/18 16:00 08/26/18 16:00 08/26/18 16:00 - Labs Labs: 08/26/18 09:24 08/26/18 09:24 - Respiratory Exam Respiratory Exam: NORMAL BREATHING PATTERN - Cardiovascular Exam Cardiovascular Exam: REGULAR RHYTHM - GI/Abdominal Exam GI & Abdominal Exam: Normal Bowel Sounds Assessment and Plan - Assessment and Plan (Free Text) Assessment: Gross pyuria UTI vs Prostatitis ID cultures IV ABX Neurogenic bladder indwelling Lennon catheter Flomax US Bladder wnl Cystoscopy done Urology PTE DVT Hx Anemia GI Bleed? 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
== END 2018-08-26 18:30 | DRG 167 ==
LOC: H.ER 14:29 → H.ERHOLD 16:17 → H.TEL 08-19 07:02
PROVIDERS: ADMIT Family Medicine Geriatric Medicine; ATTEND Family Medicine Geriatric Medicine
PROC: 06H03DZ Insertion of Intraluminal Device into Inferior Vena Cava, Percutaneous Approach (ICD-10-PCS; principal; 2018-08-20)
DX: I26.99 Other pulmonary embolism without acute cor pulmonale (principal); N17.9 Acute kidney failure, unspecified; I82.432 Acute embolism and thrombosis of left popliteal vein; N10 Acute pyelonephritis; I12.9 Hypertensive chronic kidney disease with stage 1 through stage 4 chronic kidney disease, or unspecified chronic kidney disease; N18.3 Chronic kidney disease, stage 3 (moderate); N31.8 Other neuromuscular dysfunction of bladder; B96.1 Klebsiella pneumoniae [K. pneumoniae] as the cause of diseases classified elsewhere; D50.0 Iron deficiency anemia secondary to blood loss (chronic); E11.21 Type 2 diabetes mellitus with diabetic nephropathy; E11.22 Type 2 diabetes mellitus with diabetic chronic kidney disease; D63.1 Anemia in chronic kidney disease; R09.02 Hypoxemia; I27.20 Pulmonary hypertension, unspecified; E86.0 Dehydration; N39.498 Other specified urinary incontinence; E78.5 Hyperlipidemia, unspecified; G40.909 Epilepsy, unspecified, not intractable, without status epilepticus; K31.7 Polyp of stomach and duodenum; E78.00 Pure hypercholesterolemia, unspecified; Z74.01 Bed confinement status; Z86.73 Personal history of transient ischemic attack (TIA), and cerebral infarction without residual deficits; Z79.01 Long term (current) use of anticoagulants; Z79.84 Long term (current) use of oral hypoglycemic drugs; Z79.82 Long term (current) use of aspirin; Z87.891 Personal history of nicotine dependence

== ENCOUNTER 2018-08-26 19:42 | Inpatient (IN) | payer MEDICARE ==
[2018-08-26 19:47] VITALS: BMI 21.7
[2018-08-26] MEDS ORDERED: POLYETHYLENE GLYCOL 3350 17 GM/Dose PACKET PO PRN (22:40)
[2018-08-27] MEDS: guaiFENesin 600 mg ER Tab PO SCH ×2 (08:29→22:00)
[2018-08-27] MEDS ORDERED: cefTRIAXone 2 GM in Sodium Chloride 0.9% 100 ML IVPB SCH (09:00)
[2018-08-27] MEDS ORDERED: Pantoprazole 40 mg EC Tab PO SCH (09:00)
--- NOTE | 2018-08-27 11:03 | CP.PCM.CON ---
History of Present Illness - History of Present Illness History of Present Illness: This 78-year-old male was seen by me today in follow-up consultation after being discharged from acute medicine. He was initially admitted on 1022 after presenting to the emergency room with a history of cough for 3 days. He was found to have a low SPO2 but was not complaining at that time of any shortness of breath or chest discomfort. CT angiogram showed bilateral pulmonary emboli with suggestion of pulmonary hypertension. He was placed on anticoagulation in the form of Lovenox. Venous duplex scan did show some residual thrombi in the lower extremities. An IVC filter was placed because of the high risk of GI bleed considering the past history of gastrointestinal hemorrhage and anemia. A discussion was had between hematology and the patient as well as his regarding the risk of continued anticoagulation but low-dose Eliquis was decided upon in an effort to avoid any continuing symptomatology because of the DVT. He did well on this regimen and his hemoglobin has remained stable. He does have a congested cough which has improved over the course of this hospital stay as well as a urinary tract infection. He was discharged to transitional care to continue physical therapy because of a prior CVA and the current deconditioning due to bedrest with a deep vein thrombosis and PE. Past Patient History - Past Medical History & Family History Past Medical History?: Yes - Past Social History Smoking Status: Former Smoker Chewing Tobacco Use: No Cigar Use: No Alcohol: None Drugs: Denies Home Situation {Lives}: With Family - CARDIAC Hx Hypercholesterolemia: Yes Hx Hypertension: Yes - PULMONARY Hx Pulmonary Embolism: Yes - NEUROLOGICAL HX Cerebrovascular Accident: Yes Hx Seizures: Yes - HEENT Hx HEENT Problems: No - RENAL Hx Chronic Kidney Disease: No - ENDOCRINE/METABOLIC Hx Diabetes Mellitus Type 2: Yes - HEMATOLOGICAL/ONCOLOGICAL Hx Anemia: Yes - INTEGUMENTARY Hx Dermatological Problems: No - MUSCULOSKELETAL/RHEUMATOLOGICAL Hx Arthritis: Yes Hx Falls: No - GASTROINTESTINAL Hx Constipation: Yes Hx Gastritis: Yes Hx Hemorrhoids: Yes Other/Comment: episode of GI bleed, gastritis related? - GENITOURINARY/GYNECOLOGICAL Hx Prostate Problems: Yes Hx Urinary Tract Infection: Yes Other/Comment: urinary retention, bronson catheter inserted - PSYCHIATRIC Hx Substance Use: No - SURGICAL HISTORY Other/Comment: IVC filter 08/20/2018 - ANESTHESIA Hx Anesthesia: Yes Hx Anesthesia Reactions: No Hx Malignant Hyperthermia: No Has any member of the family had a problem w/ anesthesia?: No Meds Allergies/Adverse Reactions: Allergies Allergy/AdvReac Type Severity Reaction Status Date / Time No Known Allergies Allergy Verified 06/02/18 18:28 - Medications Medications: Current Medications Apixaban (Eliquis) 2.5 mg PO BID [facility]; Protocol Last Admin: 08/27/18 08:29 Dose: 2.5 mg Atorvastatin Calcium (Lipitor) 10 mg PO HS [facility] Carvedilol (Coreg) 12.5 mg PO BID [facility] Last Admin: 08/27/18 08:28 Dose: 12.5 mg Docusate Sodium (Colace) 100 mg PO DAILY PRN PRN Reason: Constipation Ferrous Sulfate (Feosol) 325 mg PO DAILY [facility] Last Admin: 08/27/18 08:29 Dose: 325 mg Guaifenesin (Mucinex La) 600 mg PO Q12 [facility] Last Admin: 08/27/18 08:29 Dose: 600 mg Ceftriaxone Sodium 2 gm/ (Sodium Chloride) 100 mls @ 100 mls/hr IVPB DAILY [facility]; Protocol Last Admin: 08/27/18 08:28 Dose: 100 mls/hr Lactulose (Enulose) 20 gm PO DAILY PRN PRN Reason: Constipation Levetiracetam (Keppra) 500 mg PO BID [facility] Last Admin: 08/27/18 08:29 Dose: 500 mg Losartan Potassium (Cozaar) 50 mg PO DAILY [facility] Last Admin: 08/27/18 08:28 Dose: 50 mg Metformin HCl (Glucophage) 500 mg PO TID [facility] Last Admin: 08/27/18 08:29 Dose: 500 mg Pantoprazole Sodium (Protonix Ec Tab) 40 mg PO DAILY [facility] Last Admin: 08/27/18 08:30 Dose: 40 mg Polyethylene Glycol (Miralax) 17 gm PO DAILY PRN PRN Reason: Constipation Tamsulosin HCl (Flomax) 0.8 mg PO DAILY [facility] Last Admin: 08/27/18 08:29 Dose: 0.8 mg Physical Exam - Additional Findings Additional findings: Thin, well-developed male in no acute distress. Minimal chest congestion is evident when coached to cough. Speech is intelligible but slightly dysarthric because of prior CVA. Neck is supple and trachea is midline. No dullness on chest percussion. Equal expansion. Breath sounds are diminished bilaterally with occasional sonorous rhonchi. No audible wheezing appreciated. Rare dry rales are located in the lower lobes bilaterally. Heart sounds are distant and the rhythm is regular. No dependent edema of the lower extremity. No cyanosis. Results - Vital Signs Recent Vital Signs: Last Vital Signs Temp 97.9 F 08/27/18 07:31 Pulse 70 08/27/18 08:28 Resp 20 08/27/18 07:31 BP 133/67 08/27/18 08:28 Pulse Ox 100 08/27/18 07:31 - Labs Labs: Laboratory Results - last 24 hr 08/26/18 08/27/18 20:53 05:10 POC Glucose (mg/dL) 157 H 114 H Assessment & Plan (1) Pulmonary embolism Status: Acute Priority: High Comment: IVC filter has been inserted, and he remains on low-dose Eliquis 2.5 mg by mouth twice daily. Stool guaiac and hemoglobin require monitoring. Will discuss further with regarding length of time patient will remain on oral anticoagulant. - Date & Time Date: 08/27/18 Time: 11:03
--- NOTE | 2018-08-27 12:40 | CP.PCM.CON ---
History of Present Illness - History of Present Illness History of Present Illness: 78 year old male was recently noted to have confusion at home and brought to the hospital where he was found to have hypoxia A CT angio of the chest revealed bilateral PE's with probable RV strain. He was treated for PE and is being followed by Heme-Onc and Pulmonary Later on he developed monica pyuria and pus from around the penis ID eval was requested Past medical history: DM, CVA, seizure disorder, anemia (iron deficiency/anemia of CKD), GI bleeding, DM, CVA, seizures Past surgical history: None Family history: Denies Social history: Former tobacco Allergies: NKA Review of Systems - Review of Systems Systems not reviewed;Unavailable: Altered Mental Status All systems: reviewed and no additional remarkable complaints except - Constitutional Constitutional: As Per HPI - EENT Eyes: absent: As Per HPI, Blind Spots, Blurred Vision, Change in Vision, Decreased Night Vision, Diplopia, Discharge, Dry Eye, Exophthalmos, Floaters, Irritation, Itchy Eyes, Loss of Peripheral Vision, Pain, Photophobia, Requires Corrective Lenses, Sees Flashes, Spots in Vision, Tunnel Vision, Other Visual Disturbances, Loss of Vision, Other Ears: absent: As Per HPI, Decreased Hearing, Ear Discharge, Ear Pain, Tinnitus, Abnormal Hearing, Disequilibrium, Dizziness, Other Nose/Mouth/Throat: absent: As Per HPI, Epistaxis, Nasal Congestion, Nasal Discharge, Nasal Obstruction, Nasal Trauma, Nose Pain, Post Nasal Drip, Sinus Pain, Sinus Pressure, Bleeding Gums, Change in Voice, Dental Pain, Dry Mouth, Dysphagia, Halitosis, Hoarsness, Lip Swelling, Mouth Lesions, Mouth Pain, Odynophagia, Sore Throat, Throat Swelling, Tongue Swelling, Facial Pain, Neck Pain, Neck Mass, Other - Cardiovascular Cardiovascular: As Per HPI - Respiratory Respiratory: As Per HPI - Genitourinary Genitourinary: absent: As Per HPI, Change in Urinary Stream, Difficulty Urinating, Dysuria, Flank Pain, Hematuria, Pyuria, Nocturia, Urinary Incontinence, Urinary Frequency, Urinary Hesitance, Urinary Urgency, Voiding Freq/Small Amts, Freq UTI, Hx Renal/Bladder Calculi, Hx /Renal Surgery, Bladder Distension, Other - Musculoskeletal Musculoskeletal: absent: As Per HPI, Abnormal Gait, Arthralgias, Atrophy, Back Pain, Deformity, Joint Swelling, Limited Range of Motion, Loss of Height, Muscle Cramps, Muscle Weakness, Myalgias, Neck Pain, Numbness, Radiating Pain into Limb, Stiffness, Tingling, Other - Integumentary Integumentary: absent: As Per HPI, Acne, Alopecia, Bleeding Lesions, Change in Hair, Change in Nails, Change in Pigmentation, Changing Lesions, Dry Skin, Erythema, Furuncle, Hirsutism, Lesions, New Lesions, Non-Healing Lesions, Photosensitivity, Pruritus, Rash, Skin Pain, Skin Ulcer, Sores, Striae, Swelling, Unusual Bruising, Wounds, Jaundice, Other - Neurological Neurological: absent: As Per HPI, Abnormal Gait, Abnormal Hearing, Abnormal Movements, Abnormal Speech, Behavioral Changes, Burning Sensations, Confusion, Convulsions, Disequilibrium, Dizziness, Numbness, Focal Weakness, Frequent Falls, Headaches, Lack of Coordination, Loss of Vision, Memory Loss, Paresthesias, Radicular Pain, Restless Legs, Sensory Deficit, Syncope, Tingling, Tremor, Vertigo, Weakness, Other Visual Disturbances, Other Past Patient History - Past Medical History & Family History Past Medical History?: Yes - Past Social History Smoking Status: Former Smoker Chewing Tobacco Use: No Cigar Use: No Alcohol: None Drugs: Denies Home Situation {Lives}: With Family - CARDIAC Hx Hypercholesterolemia: Yes Hx Hypertension: Yes - PULMONARY Hx Pulmonary Embolism: Yes - NEUROLOGICAL HX Cerebrovascular Accident: Yes Hx Seizures: Yes - HEENT Hx HEENT Problems: No - RENAL Hx Chronic Kidney Disease: No - ENDOCRINE/METABOLIC Hx Diabetes Mellitus Type 2: Yes - HEMATOLOGICAL/ONCOLOGICAL Hx Anemia: Yes - INTEGUMENTARY Hx Dermatological Problems: No - MUSCULOSKELETAL/RHEUMATOLOGICAL Hx Arthritis: Yes Hx Falls: No - GASTROINTESTINAL Hx Constipation: Yes Hx Gastritis: Yes Hx Hemorrhoids: Yes Other/Comment: episode of GI bleed, gastritis related? - GENITOURINARY/GYNECOLOGICAL Hx Prostate Problems: Yes Hx Urinary Tract Infection: Yes Other/Comment: urinary retention, bronson catheter inserted - PSYCHIATRIC Hx Substance Use: No - SURGICAL HISTORY Other/Comment: IVC filter 08/20/2018 - ANESTHESIA Hx Anesthesia: Yes Hx Anesthesia Reactions: No Hx Malignant Hyperthermia: No Has any member of the family had a problem w/ anesthesia?: No Meds Allergies/Adverse Reactions: Allergies Allergy/AdvReac Type Severity Reaction Status Date / Time No Known Allergies Allergy Verified 06/02/18 18:28 - Medications Medications: Current Medications Apixaban (Eliquis) 2.5 mg PO BID [facility]; Protocol Last Admin: 08/27/18 08:29 Dose: 2.5 mg Atorvastatin Calcium (Lipitor) 10 mg PO [facility] Carvedilol (Coreg) 12.5 mg PO BID [facility] Last Admin: 08/27/18 08:28 Dose: 12.5 mg Docusate Sodium (Colace) 100 mg PO DAILY PRN PRN Reason: Constipation Ferrous Sulfate (Feosol) 325 mg PO DAILY [facility] Last Admin: 08/27/18 08:29 Dose: 325 mg Guaifenesin (Mucinex La) 600 mg PO Q12 [facility] Last Admin: 08/27/18 08:29 Dose: 600 mg Ceftriaxone Sodium 2 gm/ (Sodium Chloride) 100 mls @ 100 mls/hr IVPB DAILY [facility]; Protocol Last Admin: 08/27/18 08:28 Dose: 100 mls/hr Lactulose (Enulose) 20 gm PO DAILY PRN PRN Reason: Constipation Levetiracetam (Keppra) 500 mg PO BID [facility] Last Admin: 08/27/18 08:29 Dose: 500 mg Losartan Potassium (Cozaar) 50 mg PO DAILY [facility] Last Admin: 08/27/18 08:28 Dose: 50 mg Metformin HCl (Glucophage) 500 mg PO TID [facility] Last Admin: 08/27/18 12:18 Dose: 500 mg Pantoprazole Sodium (Protonix Ec Tab) 40 mg PO DAILY [facility] Last Admin: 08/27/18 08:30 Dose: 40 mg Polyethylene Glycol (Miralax) 17 gm PO DAILY PRN PRN Reason: Constipation Tamsulosin HCl (Flomax) 0.8 mg PO DAILY [facility] Last Admin: 08/27/18 08:29 Dose: 0.8 mg Physical Exam - Constitutional Appears: Confused, Cachectic, Chronically Ill - Head Exam Head Exam: ATRAUMATIC, NORMAL INSPECTION, NORMOCEPHALIC - Eye Exam Eye Exam: absent: Scleral icterus - ENT Exam ENT Exam: Mucous Membranes Dry - Neck Exam Neck exam: Negative for: Lymphadenopathy - Respiratory Exam Respiratory Exam: Decreased Breath Sounds - Cardiovascular Exam Cardiovascular Exam: REGULAR RHYTHM - GI/Abdominal Exam GI & Abdominal Exam: Diminished Bowel Sounds - Rectal Exam Rectal Exam: Deferred - Exam Exam: NORMAL INSPECTION - Extremities Exam Extremities exam: Negative for: pedal edema - Back Exam Back exam: absent: CVA tenderness (L), CVA tenderness (R) - Neurological Exam Neurological exam: Alert, Altered, CN II-XII Intact - Psychiatric Exam Psychiatric exam: Depressed - Skin Skin Exam: Dry Results - Vital Signs Recent Vital Signs: Last Vital Signs Temp 97.9 F 08/27/18 07:31 Pulse 70 08/27/18 08:28 Resp 20 08/27/18 07:31 BP 133/67 08/27/18 08:28 Pulse Ox 100 08/27/18 07:31 - Labs Labs: Laboratory Results - last 24 hr 08/26/18 08/27/18 08/27/18 20:53 05:10 11:22 POC Glucose (mg/dL) 157 H 114 H 142 H Assessment & Plan - Assessment and Plan (Free Text) Assessment: ESBL urine - UTI recc eval cont IV antibitics total 14 days
--- NOTE | 2018-08-27 18:42 | CP.PCM.HP ---
History of Present Illness - History of Present Illness History of Present Illness: 78 yo admitted to TCU for rehab and IV ABX Present on Admission - Present on Admission Any Indicators Present on Admission: No Past Patient History - Past Medical History & Family History Past Medical History?: Yes - Past Social History Smoking Status: Former Smoker Chewing Tobacco Use: No Cigar Use: No Alcohol: None Drugs: Denies Home Situation {Lives}: With Family - CARDIAC Hx Hypercholesterolemia: Yes Hx Hypertension: Yes - PULMONARY Hx Pulmonary Embolism: Yes - NEUROLOGICAL HX Cerebrovascular Accident: Yes - HEENT Hx HEENT Problems: No - RENAL Hx Chronic Kidney Disease: No - ENDOCRINE/METABOLIC Hx Diabetes Mellitus Type 2: Yes - HEMATOLOGICAL/ONCOLOGICAL Hx Anemia: Yes - INTEGUMENTARY Hx Dermatological Problems: No - MUSCULOSKELETAL/RHEUMATOLOGICAL Hx Arthritis: Yes - GASTROINTESTINAL Hx Constipation: Yes Hx Gastritis: Yes Hx Hemorrhoids: Yes Other/Comment: episode of GI bleed, gastritis related? - GENITOURINARY/GYNECOLOGICAL Hx Prostate Problems: Yes Hx Urinary Tract Infection: Yes Other/Comment: urinary retention, bronson catheter inserted - PSYCHIATRIC Hx Substance Use: No - SURGICAL HISTORY Other/Comment: IVC filter 08/20/2018 - ANESTHESIA Hx Anesthesia: Yes Hx Anesthesia Reactions: No Hx Malignant Hyperthermia: No Has any member of the family had a problem w/ anesthesia?: No Meds Allergies/Adverse Reactions: Allergies Allergy/AdvReac Type Severity Reaction Status Date / Time No Known Allergies Allergy Verified 06/02/18 18:28 Physical Exam - Respiratory Exam Respiratory Exam: NORMAL BREATHING PATTERN - Cardiovascular Exam Cardiovascular Exam: REGULAR RHYTHM - GI/Abdominal Exam GI & Abdominal Exam: Normal Bowel Sounds Results - Vital Signs Recent Vital Signs: Last Vital Signs Temp 97.0 F L 08/27/18 15:42 Pulse 72 08/27/18 17:18 Resp 20 08/27/18 15:42 BP 126/68 08/27/18 17:18 Pulse Ox 98 08/27/18 15:42 - Labs Labs: Laboratory Results - last 24 hr 08/26/18 08/27/18 08/27/18 20:53 05:10 11:22 POC Glucose (mg/dL) 157 H 114 H 142 H 08/27/18 15:49 POC Glucose (mg/dL) 153 H Assessment & Plan - Assessment and Plan (Free Text) Assessment: Gross pyuria ESBL UTI ID IV ABX Neurogenic bladder indwelling Bronson catheter Flomax US Bladder wnl Cystoscopy done Urology PTE DVT Hx Anemia GI Bleed? EGD Gastric polyps Lovenox ASA d/c stool for OB Pulmonary consult Hematology consult IR IVC filter Low dose Eliquis monitor H&H stool for OB FRANCIE creat 1.4 NIDDM CKD Diabetic Nephropathy Interstitial nephritis Nephrology w/u ordered Prednisone S/P Acute L [place] ischemic CVA Hx L MCA CVA Hx Seizure disorder - Date & Time Date: 08/27/18 Time: 22:22
[2018-08-27] MEDS: Meropenem 500 MG in Sodium Chloride 0.9% 100 ML IVPB SCH (21:58)
[2018-08-27] MEDS: Nystatin 100,000 Units/ml Oral Susp 5 ml UD PO SCH (21:59)
[2018-08-28] MEDS: Meropenem 500 MG in Sodium Chloride 0.9% 100 ML IVPB SCH ×2 (06:11→12:11)
[2018-08-28 06:13] LABS: HEMOGLOBIN 8.7 g/dL (12.0-18.0); MEAN CORPUSCULAR HEMOGLOBIN 31.2 pg (27.0-31.0); MEAN CORPUSCULAR HGB CONC 32.8 g/dL (33.0-37.0); RBC 2.81 Mil/uL (4.40-5.90); RED CELL DISTRIBUTION WIDTH 15.5 % (11.5-14.5); WHITE BLOOD COUNT 8.6 K/uL (4.8-10.8)
[2018-08-28] MEDS: Sodium Chloride 0.9% 1,000 ML IV SCH (09:22)
[2018-08-28] MEDS: Nystatin 100,000 Units/ml Oral Susp 5 ml UD PO SCH ×3 (09:22→17:25)
[2018-08-28] MEDS: guaiFENesin 600 mg ER Tab PO SCH (09:23)
--- NOTE | 2018-08-28 11:08 | CP.PCM.CON ---
History of Present Illness - History of Present Illness History of Present Illness: GI Fellow PGY 5 Consult Note This 78-year-old male with pmhx of DVT, PE, GI bleed, CVA initially admitted on 08/18 after presenting to the emergency room with cough. He was found to have a low SPO2 and CT angiogram showed bilateral pulmonary emboli with suggestion of pulmonary hypertension. He was placed on anticoagulation, Venous duplex scan did show some residual thrombi in the lower extremities. An IVC filter was placed because of the high risk of GI bleed considering the past history of gastrointestinal hemorrhage and anemia. Pt is on low-dose Eliquis, he did well on this regimen and his hemoglobin has remained stable. He was discharged to transitional care to continue physical therapy. GI was consulted for a drop in Hgb from 10.6 to 8.7. Pt had a EGD 05/2018 with gastritis and 2 gastric polyps, path neg for H.pylori, ulcerated inflammatory polyps. He had two colonoscopys in February 2018 with poor prep with internal hemorrhoids. ROS: A 12pt ROS was negative except as above PmHx: As stated in HPI PsHx: Denies SHx: Former tobacco FHx: Denies colon cancer Past Patient History - Past Medical History & Family History Past Medical History?: Yes - Past Social History Smoking Status: Former Smoker Chewing Tobacco Use: No Cigar Use: No Alcohol: None Drugs: Denies Home Situation {Lives}: With Family - CARDIAC Hx Hypercholesterolemia: Yes Hx Hypertension: Yes - PULMONARY Hx Pulmonary Embolism: Yes - NEUROLOGICAL HX Cerebrovascular Accident: Yes - HEENT Hx HEENT Problems: No - RENAL Hx Chronic Kidney Disease: No - ENDOCRINE/METABOLIC Hx Diabetes Mellitus Type 2: Yes - HEMATOLOGICAL/ONCOLOGICAL Hx Anemia: Yes - INTEGUMENTARY Hx Dermatological Problems: No - MUSCULOSKELETAL/RHEUMATOLOGICAL Hx Arthritis: Yes - GASTROINTESTINAL Hx Constipation: Yes Hx Gastritis: Yes Hx Hemorrhoids: Yes Other/Comment: episode of GI bleed, gastritis related? - GENITOURINARY/GYNECOLOGICAL Hx Prostate Problems: Yes Hx Urinary Tract Infection: Yes Other/Comment: urinary retention, bronson catheter inserted - PSYCHIATRIC Hx Substance Use: No - SURGICAL HISTORY Other/Comment: IVC filter 08/20/2018 - ANESTHESIA Hx Anesthesia: Yes Hx Anesthesia Reactions: No Hx Malignant Hyperthermia: No Has any member of the family had a problem w/ anesthesia?: No Meds Allergies/Adverse Reactions: Allergies Allergy/AdvReac Type Severity Reaction Status Date / Time No Known Allergies Allergy Verified 06/02/18 18:28 - Medications Medications: Current Medications Apixaban (Eliquis) 2.5 mg PO BID [facility]; Protocol Last Admin: 08/27/18 17:17 Dose: 2.5 mg Atorvastatin Calcium (Lipitor) 10 mg PO HS [facility] Last Admin: 08/27/18 22:00 Dose: 10 mg Carvedilol (Coreg) 12.5 mg PO BID [facility] Last Admin: 08/28/18 09:23 Dose: 12.5 mg Docusate Sodium (Colace) 100 mg PO DAILY PRN PRN Reason: Constipation Ferrous Sulfate (Feosol) 325 mg PO DAILY [facility] Last Admin: 08/28/18 09:25 Dose: 325 mg Guaifenesin (Mucinex La) 600 mg PO Q12 [facility] Last Admin: 08/28/18 09:23 Dose: 600 mg Meropenem 500 mg/ Sodium (Chloride) 100 mls @ 100 mls/hr IVPB Q8@0500,1300,2100 [facility]; Protocol Last Admin: 08/28/18 06:11 Dose: 100 mls/hr Sodium Chloride (Sodium Chloride 0.9%) 1,000 mls @ 60 mls/hr IV .[id number] [facility] Stop: 08/29/18 08:37 Last Admin: 08/28/18 09:22 Dose: 60 mls/hr Lactulose (Enulose) 20 gm PO DAILY PRN PRN Reason: Constipation Levetiracetam (Keppra) 500 mg PO BID [facility] Last Admin: 08/28/18 09:25 Dose: 500 mg Losartan Potassium (Cozaar) 50 mg PO DAILY [facility] Last Admin: 08/28/18 09:28 Dose: 50 mg Metformin HCl (Glucophage) 500 mg PO TID [facility] Last Admin: 08/28/18 09:23 Dose: 500 mg Nystatin (Nystatin Oral Susp) 5 ml PO QID [facility] Last Admin: 08/28/18 09:22 Dose: 5 ml Pantoprazole Sodium (Protonix Inj) 40 mg IVP DAILY [facility] Last Admin: 08/28/18 09:22 Dose: 40 mg Polyethylene Glycol (Miralax) 17 gm PO DAILY PRN PRN Reason: Constipation Tamsulosin HCl (Flomax) 0.8 mg PO DAILY [facility] Last Admin: 08/28/18 09:25 Dose: 0.8 mg Physical Exam - Constitutional Appears: Non-toxic, No Acute Distress - Head Exam Head Exam: ATRAUMATIC, NORMAL INSPECTION, NORMOCEPHALIC - Eye Exam Eye Exam: EOMI, Normal appearance, PERRL - ENT Exam ENT Exam: Mucous Membranes Moist - Respiratory Exam Respiratory Exam: Clear to Auscultation Bilateral, NORMAL BREATHING PATTERN - Cardiovascular Exam Cardiovascular Exam: RRR, +S1, +S2 - GI/Abdominal Exam GI & Abdominal Exam: Normal Bowel Sounds, Soft. absent: Distended, Guarding, Organomegaly - Rectal Exam Rectal Exam: absent: Black Stool, Bloody Stool Additional comments: dark brown stool, no melena, no hematochezia - Extremities Exam Extremities exam: Positive for: normal inspection. Negative for: calf tenderness, joint swelling, pedal edema - Neurological Exam Neurological exam: Alert, Oriented x3 - Psychiatric Exam Psychiatric exam: Flat Affect, Normal Mood - Skin Skin Exam: Dry, Intact, Normal Color, Warm Results - Vital Signs Recent Vital Signs: Last Vital Signs Temp 97.9 F 08/28/18 07:39 Pulse 76 08/28/18 09:28 Resp 20 08/28/18 07:39 BP 120/69 08/28/18 09:28 Pulse Ox 96 08/28/18 07:39 - Labs Result Diagrams: 08/28/18 06:08 Labs: Laboratory Results - last 24 hr 08/27/18 08/27/18 08/27/18 11:22 15:49 21:23 WBC RBC Hgb Hct MCV MCH MCHC RDW Plt Count POC Glucose (mg/dL) 142 H 153 H 127 H 08/28/18 08/28/18 06:08 06:10 WBC 8.6 RBC 2.81 L Hgb 8.7 L Hct 26.7 L MCV 95.0 H MCH 31.2 H MCHC 32.8 L RDW 15.5 H Plt Count 293 POC Glucose (mg/dL) 117 H Assessment & Plan - Assessment and Plan (Free Text) Assessment: 1. PE s/p IVC filter and OAC 2. DVT 3. Anemia 4. Pyuria Plan: -Continue supportive care -Pt with drop in Hgb from 10.6-->8.7 -No active GI bleeding, rectal exam with brown stool -Hgb stable, hemodynamically stable -Continue to monitor H/H and transfuse for goal>7.0 -Anemia maybe multifactorial with occult blood loss, CKD and anemia of chronic disease -FOBT will be positive as pt is on iron supplements -No plan for endoscopic evaluation at this time -IV abx per primary team -Okay to continue OAC -IV PPI daily -NPO after midnight -Will continue to follow closely
[2018-08-28] MEDS: Multivitamin Vitamin B Complex (Nephro-Vite) Tab PO SCH (14:33)
[2018-08-28] MEDS: Epoetin Alfa 4000 UNIT/ML Inj SC SCH (14:34)
--- NOTE | 2018-08-28 14:56 | CP.PCM.CON ---
History of Present Illness - History of Present Illness History of Present Illness: RENAL Consult Note CC: none reason for consult: CKD HPI: pt is a 78 M with hx of DM HTN CVA seizure and chronic indwelling bronson, GI bleed, recently admitted to hospital with hypoxia and found to have DVT/PE s/p IVC filter and started on low dose oral anticoagulants, d/c to rehab and renal consult for FRANCIE/CKD follow up pt with hx of FRANCIE in past, CKD 3 with baseline cr 1.1. peaked cr 1.4 at last admission. also treated with prednisone few days empirically for possible AIN since he had eosinolphiuria but also with bacteiuria hence steroids stopped. cr remained stable s: seen and examined no complaints. no CP/SOB/nausea/vomitting. all other negative o/e: vss gen: nad sclera: anicteric heent; perrla op: clear neck: supple no thyromegaly lungs: cta b/l cv: +S1+s2 no rub abd: soft no organomegaly nt/nd ext: no edema neuro: A+OX3 no focal deficit psych: nml affect/mood. limited insight skin: No rash no ulcer work up: renal sono WNL UA 100 protein ferritin 82 imp: FRANCIE/ CKD III/DVT and PE s/p IVC filter/ Anemia/ UTI/ hypert ension/DM/HTN/CVA/seizures/hx of GI bleed plan: Cr remains stable continue to monitor bp on coreg. also on losartan hgb on lower side, evaluated by heme. increased iron to TID, added nephrovite and epogen. check TSAT in AM check Vit D and PTH, urine pro/cr and alb/cr continue with flomax pe management per heme glycemic control thanks for consult Please call if any Qs [phone] Past Patient History - Past Medical History & Family History Past Medical History?: Yes - Past Social History Smoking Status: Former Smoker Chewing Tobacco Use: No Cigar Use: No Alcohol: None Drugs: Denies Home Situation {Lives}: With Family - CARDIAC Hx Hypercholesterolemia: Yes Hx Hypertension: Yes - PULMONARY Hx Pulmonary Embolism: Yes - NEUROLOGICAL HX Cerebrovascular Accident: Yes - HEENT Hx HEENT Problems: No - RENAL Hx Chronic Kidney Disease: No - ENDOCRINE/METABOLIC Hx Diabetes Mellitus Type 2: Yes - HEMATOLOGICAL/ONCOLOGICAL Hx Anemia: Yes - INTEGUMENTARY Hx Dermatological Problems: No - MUSCULOSKELETAL/RHEUMATOLOGICAL Hx Arthritis: Yes - GASTROINTESTINAL Hx Constipation: Yes Hx Gastritis: Yes Hx Hemorrhoids: Yes Other/Comment: episode of GI bleed, gastritis related? - GENITOURINARY/GYNECOLOGICAL Hx Prostate Problems: Yes Hx Urinary Tract Infection: Yes Other/Comment: urinary retention, bronson catheter inserted - PSYCHIATRIC Hx Substance Use: No - SURGICAL HISTORY Other/Comment: IVC filter 08/20/2018 - ANESTHESIA Hx Anesthesia: Yes Hx Anesthesia Reactions: No Hx Malignant Hyperthermia: No Has any member of the family had a problem w/ anesthesia?: No Meds Allergies/Adverse Reactions: Allergies Allergy/AdvReac Type Severity Reaction Status Date / Time No Known Allergies Allergy Verified 06/02/18 18:28 - Medications Medications: Current Medications Apixaban (Eliquis) 2.5 mg PO BID [facility]; Protocol Last Admin: 08/27/18 17:17 Dose: 2.5 mg Atorvastatin Calcium (Lipitor) 10 mg PO HS [facility] Last Admin: 08/27/18 22:00 Dose: 10 mg Carvedilol (Coreg) 12.5 mg PO BID [facility] Last Admin: 08/28/18 09:23 Dose: 12.5 mg Docusate Sodium (Colace) 100 mg PO DAILY PRN PRN Reason: Constipation Epoetin Kenneth (Procrit) 4,000 unit SC TTS [facility] Stop: 09/09/18 09:01 Last Admin: 08/28/18 14:34 Dose: 4,000 unit Ferrous Sulfate (Feosol) 325 mg PO TIDWM [facility] Last Admin: 08/28/18 14:33 Dose: 325 mg Guaifenesin (Mucinex La) 600 mg PO Q12 [facility] Last Admin: 08/28/18 09:23 Dose: 600 mg Meropenem 500 mg/ Sodium (Chloride) 100 mls @ 100 mls/hr IVPB Q8@0500,1300,2100 [facility]; Protocol Last Admin: 08/28/18 12:11 Dose: 100 mls/hr Sodium Chloride (Sodium Chloride 0.9%) 1,000 mls @ 60 mls/hr IV .[id number] [facility] Stop: 08/29/18 08:37 Last Admin: 08/28/18 09:22 Dose: 60 mls/hr Lactulose (Enulose) 20 gm PO DAILY PRN PRN Reason: Constipation Levetiracetam (Keppra) 500 mg PO BID [facility] Last Admin: 08/28/18 09:25 Dose: 500 mg Losartan Potassium (Cozaar) 50 mg PO DAILY [facility] Last Admin: 08/28/18 09:28 Dose: 50 mg Metformin HCl (Glucophage) 500 mg PO TID [facility] Last Admin: 08/28/18 12:15 Dose: 500 mg Nystatin (Nystatin Oral Susp) 5 ml PO QID [facility] Last Admin: 08/28/18 12:16 Dose: 5 ml Pantoprazole Sodium (Protonix Inj) 40 mg IVP DAILY [facility] Last Admin: 08/28/18 09:22 Dose: 40 mg Polyethylene Glycol (Miralax) 17 gm PO DAILY PRN PRN Reason: Constipation Tamsulosin HCl (Flomax) 0.8 mg PO DAILY [facility] Last Admin: 08/28/18 09:25 Dose: 0.8 mg Vitamin B Complex/Vit C/Folic Acid (Nephro-Maci) 1 tab PO DAILY [facility] Last Admin: 08/28/18 14:33 Dose: 1 tab Results - Vital Signs Recent Vital Signs: Last Vital Signs Temp 97.9 F 08/28/18 07:39 Pulse 76 08/28/18 09:28 Resp 20 08/28/18 07:39 BP 120/69 08/28/18 09:28 Pulse Ox 96 08/28/18 07:39 - Labs Result Diagrams: 08/28/18 06:08 Labs: Laboratory Results - last 24 hr 08/27/18 08/27/18 08/27/18 15:49 21:23 23:00 WBC RBC Hgb Hct MCV MCH MCHC RDW Plt Count POC Glucose (mg/dL) 153 H 127 H Stool Occult Blood Positive H 08/28/18 08/28/18 06:08 06:10 WBC 8.6 RBC 2.81 L Hgb 8.7 L Hct 26.7 L MCV 95.0 H MCH 31.2 H MCHC 32.8 L RDW 15.5 H Plt Count 293 POC Glucose (mg/dL) 117 H Stool Occult Blood
[2018-08-28 16:58] LABS: HEMOGLOBIN 8.7 g/dL (12.0-18.0); MEAN CELL VOLUME 94.6 fl (80.0-94.0); MEAN CORPUSCULAR HEMOGLOBIN 31.1 pg (27.0-31.0); MEAN CORPUSCULAR HGB CONC 32.8 g/dL (33.0-37.0); RBC 2.79 Mil/uL (4.40-5.90); RED CELL DISTRIBUTION WIDTH 15.2 % (11.5-14.5); WHITE BLOOD COUNT 8.2 K/uL (4.8-10.8)
--- NOTE | 2018-08-28 20:03 | CP.PCM.PN ---
Subjective - Date & Time of Evaluation Date of Evaluation: 08/28/18 Time of Evaluation: 22:22 - Subjective Subjective: Epigastric discomfort and dark stools last night with drop in Hbg Objective - Vital Signs/Intake and Output Vital Signs (last 24 hours): Temp Pulse Resp BP Pulse Ox 97.7 F 71 20 138/70 97 08/28/18 19:58 08/28/18 19:58 08/28/18 19:58 08/28/18 19:58 08/28/18 19:58 - Medications Medications: Current Medications Apixaban (Eliquis) 2.5 mg PO BID [facility]; Protocol Last Admin: 08/27/18 17:17 Dose: 2.5 mg Atorvastatin Calcium (Lipitor) 10 mg PO HS [facility] Last Admin: 08/27/18 22:00 Dose: 10 mg Carvedilol (Coreg) 12.5 mg PO BID [facility] Last Admin: 08/28/18 17:30 Dose: 12.5 mg Docusate Sodium (Colace) 100 mg PO DAILY PRN PRN Reason: Constipation Epoetin Kenneth (Procrit) 4,000 unit SC TTS [facility] Stop: 09/09/18 09:01 Last Admin: 08/28/18 14:34 Dose: 4,000 unit Ferrous Sulfate (Feosol) 325 mg PO TIDWM [facility] Last Admin: 08/28/18 17:25 Dose: 325 mg Guaifenesin (Mucinex La) 600 mg PO Q12 [facility] Last Admin: 08/28/18 09:23 Dose: 600 mg Meropenem 500 mg/ Sodium (Chloride) 100 mls @ 100 mls/hr IVPB Q8@0500,1300,2100 [facility]; Protocol Last Admin: 08/28/18 12:11 Dose: 100 mls/hr Sodium Chloride (Sodium Chloride 0.9%) 1,000 mls @ 60 mls/hr IV .[id number] [facility] Stop: 08/29/18 08:37 Last Admin: 08/28/18 09:22 Dose: 60 mls/hr Lactulose (Enulose) 20 gm PO DAILY PRN PRN Reason: Constipation Levetiracetam (Keppra) 500 mg PO BID [facility] Last Admin: 08/28/18 17:25 Dose: 500 mg Losartan Potassium (Cozaar) 50 mg PO DAILY [facility] Last Admin: 08/28/18 09:28 Dose: 50 mg Metformin HCl (Glucophage) 500 mg PO TID [facility] Last Admin: 08/28/18 17:26 Dose: 500 mg Nystatin (Nystatin Oral Susp) 5 ml PO QID [facility] Last Admin: 08/28/18 17:25 Dose: 5 ml Pantoprazole Sodium (Protonix Inj) 40 mg IVP DAILY [facility] Last Admin: 08/28/18 09:22 Dose: 40 mg Polyethylene Glycol (Miralax) 17 gm PO DAILY PRN PRN Reason: Constipation Tamsulosin HCl (Flomax) 0.8 mg PO DAILY [facility] Last Admin: 08/28/18 09:25 Dose: 0.8 mg Vitamin B Complex/Vit C/Folic Acid (Nephro-Maci) 1 tab PO DAILY [facility] Last Admin: 08/28/18 14:33 Dose: 1 tab - Labs Labs: 08/28/18 16:14 Assessment and Plan - Assessment and Plan (Free Text) Assessment: Hbg drop 10.5-8.7 Stools??] Hx Anemia GI Bleed? EGD Gastric polyps IVF PPI Monitor urine output VS H/H GI consult Hold Eliquis Gross pyuria ESBL UTI ID IV ABX Neurogenic bladder indwelling Lennon catheter Flomax US Bladder wnl Cystoscopy done Urology PTE DVT Hx Anemia GI Bleed? 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
--- NOTE | 2018-08-28 21:23 | CP.PCM.CON ---
History of Present Illness - History of Present Illness History of Present Illness: 78 year old male with a history of DM, CVA, seizure disorder, anemia (iron deficiency/anemia of CKD), GI bleeding, recently found to have bilateral pulmonary emboli and a LE DVT s/p IVC filter placement and on dose reduced Eliquis, admitted to TCU for rehab, now with progressive anemia and dark stools. The patient was treated with therapeutic lovenox and transitioned to oral Eliquis for PE/DVT treatment. Given his prior history of GI bleeding, there was a concern for rebleeding with anticoagulation. This was discussed at length and the patient elected a trial of dose reduced Eliquis. He currently denies pain. His stool is dark and his hgb has declined from 10.6 to 8.7. His last dose of Eliquis 2.5mg was at 5pm. Past medical history: DM, CVA, seizures, DVT/PE s/p IVC filter placement Past surgical history: None Family history: Denies hematologic and oncologic problems Social history: Former tobacco Allergies: NKA Review of systems: All remaining review of systems including HEENT, cardiovascular, respiratory, gastrointestinal, genitourinary, musculoskeletal, dermatologic, neurologic, and psychiatric are negative unless mentioned in the HPI. Past Patient History - Past Medical History & Family History Past Medical History?: Yes - Past Social History Smoking Status: Former Smoker Chewing Tobacco Use: No Cigar Use: No Alcohol: None Drugs: Denies Home Situation {Lives}: With Family - CARDIAC Hx Hypercholesterolemia: Yes Hx Hypertension: Yes - PULMONARY Hx Pulmonary Embolism: Yes - NEUROLOGICAL HX Cerebrovascular Accident: Yes - HEENT Hx HEENT Problems: No - RENAL Hx Chronic Kidney Disease: No - ENDOCRINE/METABOLIC Hx Diabetes Mellitus Type 2: Yes - HEMATOLOGICAL/ONCOLOGICAL Hx Anemia: Yes - INTEGUMENTARY Hx Dermatological Problems: No - MUSCULOSKELETAL/RHEUMATOLOGICAL Hx Arthritis: Yes - GASTROINTESTINAL Hx Constipation: Yes Hx Gastritis: Yes Hx Hemorrhoids: Yes Other/Comment: episode of GI bleed, gastritis related? - GENITOURINARY/GYNECOLOGICAL Hx Prostate Problems: Yes Hx Urinary Tract Infection: Yes Other/Comment: urinary retention, bronson catheter inserted - PSYCHIATRIC Hx Substance Use: No - SURGICAL HISTORY Other/Comment: IVC filter 08/20/2018 - ANESTHESIA Hx Anesthesia: Yes Hx Anesthesia Reactions: No Hx Malignant Hyperthermia: No Has any member of the family had a problem w/ anesthesia?: No Meds Allergies/Adverse Reactions: Allergies Allergy/AdvReac Type Severity Reaction Status Date / Time No Known Allergies Allergy Verified 06/02/18 18:28 - Medications Medications: Current Medications Apixaban (Eliquis) 2.5 mg PO BID [facility]; Protocol Last Admin: 08/27/18 17:17 Dose: 2.5 mg Atorvastatin Calcium (Lipitor) 10 mg PO HS [facility] Last Admin: 08/27/18 22:00 Dose: 10 mg Carvedilol (Coreg) 12.5 mg PO BID [facility] Last Admin: 08/28/18 17:30 Dose: 12.5 mg Docusate Sodium (Colace) 100 mg PO DAILY PRN PRN Reason: Constipation Epoetin Kenneth (Procrit) 4,000 unit SC TTS [facility] Stop: 09/09/18 09:01 Last Admin: 08/28/18 14:34 Dose: 4,000 unit Ferrous Sulfate (Feosol) 325 mg PO TIDWM [facility] Last Admin: 08/28/18 17:25 Dose: 325 mg Guaifenesin (Mucinex La) 600 mg PO Q12 [facility] Last Admin: 08/28/18 09:23 Dose: 600 mg Meropenem 500 mg/ Sodium (Chloride) 100 mls @ 100 mls/hr IVPB Q8@0500,1300,2100 [facility]; Protocol Last Admin: 08/28/18 12:11 Dose: 100 mls/hr Sodium Chloride (Sodium Chloride 0.9%) 1,000 mls @ 60 mls/hr IV .[id number] [facility] Stop: 08/29/18 08:37 Last Admin: 08/28/18 09:22 Dose: 60 mls/hr Lactulose (Enulose) 20 gm PO DAILY PRN PRN Reason: Constipation Levetiracetam (Keppra) 500 mg PO BID [facility] Last Admin: 08/28/18 17:25 Dose: 500 mg Losartan Potassium (Cozaar) 50 mg PO DAILY [facility] Last Admin: 08/28/18 09:28 Dose: 50 mg Metformin HCl (Glucophage) 500 mg PO TID [facility] Last Admin: 08/28/18 17:26 Dose: 500 mg Nystatin (Nystatin Oral Susp) 5 ml PO QID [facility] Last Admin: 08/28/18 17:25 Dose: 5 ml Pantoprazole Sodium (Protonix Inj) 40 mg IVP DAILY [facility] Last Admin: 08/28/18 09:22 Dose: 40 mg Polyethylene Glycol (Miralax) 17 gm PO DAILY PRN PRN Reason: Constipation Tamsulosin HCl (Flomax) 0.8 mg PO DAILY [facility] Last Admin: 08/28/18 09:25 Dose: 0.8 mg Vitamin B Complex/Vit C/Folic Acid (Nephro-Maci) 1 tab PO DAILY [facility] Last Admin: 08/28/18 14:33 Dose: 1 tab Physical Exam - Head Exam Head Exam: ATRAUMATIC - Eye Exam Eye Exam: Normal appearance - ENT Exam ENT Exam: Mucous Membranes Dry - Respiratory Exam Respiratory Exam: NORMAL BREATHING PATTERN - Cardiovascular Exam Cardiovascular Exam: +S1, +S2 - GI/Abdominal Exam GI & Abdominal Exam: Normal Bowel Sounds - Extremities Exam Extremities exam: Positive for: normal inspection - Neurological Exam Neurological exam: Oriented x3 - Psychiatric Exam Psychiatric exam: Normal Affect, Normal Mood - Skin Skin Exam: Warm Results - Vital Signs Recent Vital Signs: Last Vital Signs Temp 97.7 F 08/28/18 19:58 Pulse 71 08/28/18 19:58 Resp 20 08/28/18 19:58 BP 138/70 08/28/18 19:58 Pulse Ox 97 08/28/18 19:58 - Labs Result Diagrams: 08/28/18 16:14 Labs: Laboratory Results - last 24 hr 08/27/18 08/27/18 08/28/18 21:23 23:00 06:08 WBC 8.6 RBC 2.81 L Hgb 8.7 L Hct 26.7 L MCV 95.0 H MCH 31.2 H MCHC 32.8 L RDW 15.5 H Plt Count 293 POC Glucose (mg/dL) 127 H Stool Occult Blood Positive H 08/28/18 08/28/18 08/28/18 06:10 11:35 16:03 WBC RBC Hgb Hct MCV MCH MCHC RDW Plt Count POC Glucose (mg/dL) 117 H 145 H 102 Stool Occult Blood 08/28/18 16:14 WBC 8.2 RBC 2.79 L Hgb 8.7 L Hct 26.4 L MCV 94.6 H MCH 31.1 H MCHC 32.8 L RDW 15.2 H Plt Count 295 POC Glucose (mg/dL) Stool Occult Blood Assessment & Plan (1) Anemia Assessment and Plan: likely GI blood loss anticoagulation held; last dose was 5pm yesterday half life of Eliquis is about 12 hours and the majority of the medication is out of his system; dose not require pharmacologic reversal agree with Procrit supplementation in an attempt to decrease transfusion dependence; hold if hgb > 11 repeat CBC in AM Status: Chronic (2) History of pulmonary embolus (PE) Assessment and Plan: with DVT provoked from immobility s/p IVC filter not an anticoagulation candidate given GI bleeding Thank you for this interesting consult. Status: Acute
[2018-08-29] MEDS: Nystatin 100,000 Units/ml Oral Susp 5 ml UD PO SCH ×5 (00:05→21:02)
[2018-08-29] MEDS: guaiFENesin 600 mg ER Tab PO SCH ×3 (00:05→21:02)
[2018-08-29] MEDS: Meropenem 500 MG in Sodium Chloride 0.9% 100 ML IVPB SCH ×4 (00:05→21:03)
[2018-08-29] MEDS: Sodium Chloride 0.9% 1,000 ML IV SCH (02:20)
[2018-08-29 07:14] LABS: IRON 20 ug/dL (49-181)
[2018-08-29 07:15] LABS: BASO # 0.1 K/uL (0.0-0.2); BASO % 0.9 % (0.0-2.0); EOS # 0.3 K/uL (0.0-0.7); EOS % 4.3 % (0.0-4.0); HEMOGLOBIN 8.6 g/dL (12.0-18.0); LYMPH # 2.1 K/uL (1.0-4.3); LYMPH % 29.3 % (20.0-40.0); MEAN CELL VOLUME 94.5 fl (80.0-94.0); MEAN CORPUSCULAR HEMOGLOBIN 31.1 pg (27.0-31.0); MEAN CORPUSCULAR HGB CONC 32.9 g/dL (33.0-37.0); MEAN PLATELET VOLUME 7.6 fl (7.2-11.7); MONO # 0.5 K/uL (0.0-0.8); MONO % 7.6 % (0.0-10.0); NEUT # 4.1 K/uL (1.8-7.0); NEUT % 57.9 % (50.0-75.0); NRBC % 0.2 % (0.0-0.0); RBC 2.75 Mil/uL (4.40-5.90); RED CELL DISTRIBUTION WIDTH 15.1 % (11.5-14.5); WHITE BLOOD COUNT 7.1 K/uL (4.8-10.8)
[2018-08-29 07:20] LABS: INR 1.1; PROTHROMBIN TIME 12.5 Seconds (9.8-13.1)
[2018-08-29 07:23] LABS: % IRON SATURATION 10 % (20-55); TOTAL IRON BINDING CAPACITY 206 ug/dL (250-450)
[2018-08-29 07:32] LABS: CALCIUM 8.4 mg/dL (8.4-10.2)
[2018-08-29] MEDS: Multivitamin Vitamin B Complex (Nephro-Vite) Tab PO SCH (09:11)
--- NOTE | 2018-08-29 09:29 | CP.PCM.PN ---
Subjective - Date & Time of Evaluation Date of Evaluation: 08/29/18 Time of Evaluation: 09:00 - Subjective Subjective: GI Fellow PGY5 Progress Note Pt seen and evaluated at bedside, doing well with no complaints of abdominal pain. No acute events overnight. ROS: A 12pt ROS was negative except as above. Objective - Vital Signs/Intake and Output Vital Signs (last 24 hours): Temp Pulse Resp BP Pulse Ox 97.7 F 71 20 138/70 97 08/28/18 19:58 08/28/18 19:58 08/28/18 19:58 08/28/18 19:58 08/28/18 19:58 - Medications Medications: Current Medications Apixaban (Eliquis) 2.5 mg PO BID [facility]; Protocol Last Admin: 08/27/18 17:17 Dose: 2.5 mg Atorvastatin Calcium (Lipitor) 10 mg PO HS [facility] Last Admin: 08/29/18 00:05 Dose: 10 mg Carvedilol (Coreg) 12.5 mg PO BID [facility] Last Admin: 08/29/18 09:11 Dose: 12.5 mg Docusate Sodium (Colace) 100 mg PO DAILY PRN PRN Reason: Constipation Epoetin Kenneth (Procrit) 4,000 unit SC TTS [facility] Stop: 09/09/18 09:01 Last Admin: 08/28/18 14:34 Dose: 4,000 unit Ferrous Sulfate (Feosol) 325 mg PO TIDWM [facility] Last Admin: 08/29/18 09:11 Dose: 325 mg Guaifenesin (Mucinex La) 600 mg PO Q12 [facility] Last Admin: 08/29/18 09:11 Dose: 600 mg Meropenem 500 mg/ Sodium (Chloride) 100 mls @ 100 mls/hr IVPB Q8@0500,1300,2100 [facility]; Protocol Last Admin: 08/29/18 05:48 Dose: 100 mls/hr Lactulose (Enulose) 20 gm PO DAILY PRN PRN Reason: Constipation Levetiracetam (Keppra) 500 mg PO BID [facility] Last Admin: 08/29/18 09:11 Dose: 500 mg Losartan Potassium (Cozaar) 50 mg PO DAILY [facility] Last Admin: 08/29/18 09:11 Dose: 50 mg Metformin HCl (Glucophage) 500 mg PO TID [facility] Last Admin: 08/29/18 09:11 Dose: 500 mg Nystatin (Nystatin Oral Susp) 5 ml PO QID [facility] Last Admin: 08/29/18 09:10 Dose: 5 ml Pantoprazole Sodium (Protonix Inj) 40 mg IVP DAILY [facility] Last Admin: 08/29/18 09:10 Dose: 40 mg Polyethylene Glycol (Miralax) 17 gm PO DAILY PRN PRN Reason: Constipation Tamsulosin HCl (Flomax) 0.8 mg PO DAILY [facility] Last Admin: 08/29/18 09:10 Dose: 0.8 mg Vitamin B Complex/Vit C/Folic Acid (Nephro-Maci) 1 tab PO DAILY [facility] Last Admin: 08/29/18 09:11 Dose: 1 tab - Labs Labs: 08/29/18 06:00 08/29/18 06:00 PT 12.5 Seconds (9.8-13.1) 08/29/18 06:00 INR 1.1 08/29/18 06:00 - Constitutional Appears: Non-toxic, No Acute Distress - Head Exam Head Exam: ATRAUMATIC, NORMAL INSPECTION, NORMOCEPHALIC - Eye Exam Eye Exam: EOMI, Normal appearance, PERRL Pupil Exam: PERRL - ENT Exam ENT Exam: Mucous Membranes Moist - Neck Exam Neck Exam: Full ROM - Respiratory Exam Respiratory Exam: Clear to Ausculation Bilateral, NORMAL BREATHING PATTERN - Cardiovascular Exam Cardiovascular Exam: RRR, +S1, +S2 - GI/Abdominal Exam GI & Abdominal Exam: Soft, Normal Bowel Sounds. absent: Distended, Guarding, Tenderness - Extremities Exam Extremities Exam: Full ROM, Normal Inspection - Neurological Exam Neurological Exam: Alert, Awake, Oriented x3 - Psychiatric Exam Psychiatric exam: Normal Affect, Normal Mood - Skin Skin Exam: Dry, Intact, Normal Color, Warm Assessment and Plan - Assessment and Plan (Free Text) Assessment: 1. PE s/p IVC filter and OAC 2. DVT 3. Anemia 4. Pyuria Plan: -Continue supportive care -Pt with drop in Hgb from 10.6-->8.7-->8.6 -No active GI bleeding, rectal exam with brown stool -Hgb stable, hemodynamically stable -Continue to monitor H/H and transfuse for goal>7.0 -Anemia maybe multifactorial with occult blood loss, CKD and anemia of chronic disease -No plan for endoscopic evaluation at this time -IV abx per primary team -Okay to continue OAC -IV PPI daily -Diet as tolerated -Please call with any questions or concerns
[2018-08-29] MEDS ORDERED: Ergocalciferol 50,000 Intl Units Cap PO SCH (14:45)
--- NOTE | 2018-08-29 15:42 | CP.PCM.PN ---
Subjective - Date & Time of Evaluation Date of Evaluation: 08/29/18 Time of Evaluation: 15:41 - Subjective Subjective: RENAL Consult Note CC: none reason for consult: CKD HPI: pt is a 78 M with hx of DM HTN CVA seizure and chronic indwelling bronson, GI bleed, recently admitted to hospital with hypoxia and found to have DVT/PE s/p IVC filter and started on low dose oral anticoagulants, d/c to rehab and renal consult for FRANCIE/CKD follow up pt with hx of FRANCIE in past, CKD 3 with baseline cr 1.1. peaked cr 1.4 at last admission. also treated with prednisone few days empirically for possible AIN since he had eosinolphiuria but also with bacteiuria hence steroids stopped. cr remained stable s: seen and examined no complaints. no CP/SOB/nausea/vomitting. all other negative. feels tired o/e: vss gen: nad sclera: anicteric heent; perrla op: clear neck: supple no thyromegaly lungs: cta b/l cv: +S1+s2 no rub abd: soft no organomegaly nt/nd ext: no edema neuro: A+OX3 no focal deficit psych: nml affect/mood. limited insight skin: No rash no ulcer work up: renal sono WNL UA 100 protein ferritin 82 imp: FRANCIE/ CKD III/DVT and PE s/p IVC filter/ Anemia/ UTI/ hypertension/DM/HTN/CVA/seizures/hx of GI bleed/vit d def plan: Cr remains stable continue to monitor bp on coreg. also on losartan hgb on lower side, evaluated by heme/gi. increased iron to TID, added nephrovite and epogen continue with flomax pe management per heme glycemic control started weekly vit d and sodium bicarb 650 mg bid thanks for consult Please call if any Qs [phone] Objective - Vital Signs/Intake and Output Vital Signs (last 24 hours): Temp Pulse Resp BP Pulse Ox 97.2 F L 66 20 140/66 97 08/29/18 10:00 08/29/18 10:00 08/29/18 10:00 08/29/18 10:00 08/29/18 10:00 - Medications Medications: Current Medications Atorvastatin Calcium (Lipitor) 10 mg PO HS [facility] Last Admin: 08/29/18 00:05 Dose: 10 mg Carvedilol (Coreg) 12.5 mg PO BID [facility] Last Admin: 08/29/18 09:11 Dose: 12.5 mg Docusate Sodium (Colace) 100 mg PO DAILY PRN PRN Reason: Constipation Epoetin Kenneth (Procrit) 4,000 unit SC TTS [facility] Stop: 09/09/18 09:01 Last Admin: 08/28/18 14:34 Dose: 4,000 unit Ergocalciferol (Drisdol 50,000 Intl Units Cap) 1 cap PO Q7D [facility] Ferrous Sulfate (Feosol) 325 mg PO TIDWM [facility] Last Admin: 08/29/18 12:24 Dose: 325 mg Guaifenesin (Mucinex La) 600 mg PO Q12 [facility] Last Admin: 08/29/18 09:11 Dose: 600 mg Meropenem 500 mg/ Sodium (Chloride) 100 mls @ 100 mls/hr IVPB Q8@0500,1300,2100 [facility]; Protocol Last Admin: 08/29/18 12:26 Dose: 100 mls/hr Lactulose (Enulose) 20 gm PO DAILY PRN PRN Reason: Constipation Levetiracetam (Keppra) 500 mg PO BID [facility] Last Admin: 08/29/18 09:11 Dose: 500 mg Losartan Potassium (Cozaar) 50 mg PO DAILY [facility] Last Admin: 08/29/18 09:11 Dose: 50 mg Metformin HCl (Glucophage) 500 mg PO TID [facility] Last Admin: 08/29/18 12:24 Dose: 500 mg Nystatin (Nystatin Oral Susp) 5 ml PO QID [facility] Last Admin: 08/29/18 12:24 Dose: 5 ml Pantoprazole Sodium (Protonix Inj) 40 mg IVP DAILY [facility] Last Admin: 08/29/18 09:10 Dose: 40 mg Polyethylene Glycol (Miralax) 17 gm PO DAILY PRN PRN Reason: Constipation Sodium Bicarbonate (Sodium Bicarbonate Tab) 650 mg PO BID [facility] Tamsulosin HCl (Flomax) 0.8 mg PO DAILY [facility] Last Admin: 08/29/18 09:10 Dose: 0.8 mg Vitamin B Complex/Vit C/Folic Acid (Nephro-Maci) 1 tab PO DAILY [facility] Last Admin: 08/29/18 09:11 Dose: 1 tab - Labs Labs: 08/29/18 06:00 08/29/18 06:00 PT 12.5 Seconds (9.8-13.1) 08/29/18 06:00 INR 1.1 08/29/18 06:00
--- NOTE | 2018-08-29 18:01 | CP.PCM.PN ---
Subjective - Date & Time of Evaluation Date of Evaluation: 08/29/18 Time of Evaluation: 22:22 - Subjective Subjective: Hbg 8.6 Creat 1.4 Objective - Vital Signs/Intake and Output Vital Signs (last 24 hours): Temp Pulse Resp BP Pulse Ox 97.0 F L 64 20 121/64 100 08/29/18 16:40 08/29/18 16:40 08/29/18 16:40 08/29/18 16:40 08/29/18 16:40 - Medications Medications: Current Medications Atorvastatin Calcium (Lipitor) 10 mg PO HS [facility] Last Admin: 08/29/18 00:05 Dose: 10 mg Carvedilol (Coreg) 12.5 mg PO BID [facility] Last Admin: 08/29/18 16:36 Dose: 12.5 mg Docusate Sodium (Colace) 100 mg PO DAILY PRN PRN Reason: Constipation Epoetin Kenneth (Procrit) 4,000 unit SC TTS [facility] Stop: 09/09/18 09:01 Last Admin: 08/28/18 14:34 Dose: 4,000 unit Ergocalciferol (Drisdol 50,000 Intl Units Cap) 1 cap PO Q7D [facility] Last Admin: 08/29/18 16:36 Dose: 1 cap Ferrous Sulfate (Feosol) 325 mg PO TIDWM [facility] Last Admin: 08/29/18 16:36 Dose: 325 mg Guaifenesin (Mucinex La) 600 mg PO Q12 [facility] Last Admin: 08/29/18 09:11 Dose: 600 mg Meropenem 500 mg/ Sodium (Chloride) 100 mls @ 100 mls/hr IVPB Q8@0500,1300,2100 [facility]; Protocol Last Admin: 08/29/18 12:26 Dose: 100 mls/hr Lactulose (Enulose) 20 gm PO DAILY PRN PRN Reason: Constipation Levetiracetam (Keppra) 500 mg PO BID [facility] Last Admin: 08/29/18 16:36 Dose: 500 mg Losartan Potassium (Cozaar) 50 mg PO DAILY [facility] Last Admin: 08/29/18 09:11 Dose: 50 mg Metformin HCl (Glucophage) 500 mg PO TID [facility] Last Admin: 08/29/18 16:36 Dose: 500 mg Nystatin (Nystatin Oral Susp) 5 ml PO QID [facility] Last Admin: 08/29/18 16:36 Dose: 5 ml Pantoprazole Sodium (Protonix Inj) 40 mg IVP DAILY [facility] Last Admin: 08/29/18 09:10 Dose: 40 mg Polyethylene Glycol (Miralax) 17 gm PO DAILY PRN PRN Reason: Constipation Sodium Bicarbonate (Sodium Bicarbonate Tab) 650 mg PO BID [facility] Last Admin: 08/29/18 16:36 Dose: 650 mg Tamsulosin HCl (Flomax) 0.8 mg PO DAILY [facility] Last Admin: 08/29/18 09:10 Dose: 0.8 mg Vitamin B Complex/Vit C/Folic Acid (Nephro-Maci) 1 tab PO DAILY [facility] Last Admin: 08/29/18 09:11 Dose: 1 tab - Labs Labs: 08/29/18 06:00 08/29/18 06:00 PT 12.5 Seconds (9.8-13.1) 08/29/18 06:00 INR 1.1 08/29/18 06:00 - Respiratory Exam Respiratory Exam: NORMAL BREATHING PATTERN - Cardiovascular Exam Cardiovascular Exam: REGULAR RHYTHM - GI/Abdominal Exam GI & Abdominal Exam: Normal Bowel Sounds Assessment and Plan - Assessment and Plan (Free Text) Assessment: GI bleed?? Hbg drop 10.5-8.7 Stools??] Hx Anemia GI Bleed? EGD Gastric polyps IVF PPI Monitor urine output VS H/H GI consult Hold Eliquis Gross pyuria ESBL UTI ID IV ABX Neurogenic bladder indwelling Lennon catheter Flomax US Bladder wnl Cystoscopy done Urology PTE DVT Hx Anemia GI Bleed? 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
[2018-08-30] MEDS: Meropenem 500 MG in Sodium Chloride 0.9% 100 ML IVPB SCH ×3 (04:43→21:34)
[2018-08-30] MEDS: Nystatin 100,000 Units/ml Oral Susp 5 ml UD PO SCH ×4 (08:39→21:37)
[2018-08-30] MEDS: guaiFENesin 600 mg ER Tab PO SCH ×2 (08:40→21:37)
[2018-08-30] MEDS: Multivitamin Vitamin B Complex (Nephro-Vite) Tab PO SCH (08:40)
[2018-08-30] MEDS: Epoetin Alfa 4000 UNIT/ML Inj SC SCH (13:58)
--- NOTE | 2018-08-30 19:50 | CP.PCM.PN ---
Subjective - Date & Time of Evaluation Date of Evaluation: 08/30/18 Time of Evaluation: 22:22 - Subjective Subjective: Above noted Objective - Vital Signs/Intake and Output Vital Signs (last 24 hours): Temp Pulse Resp BP Pulse Ox 97.2 F L 64 20 142/70 99 08/30/18 16:56 08/30/18 16:56 08/30/18 16:56 08/30/18 16:56 08/30/18 16:56 - Medications Medications: Current Medications Atorvastatin Calcium (Lipitor) 10 mg PO HS [facility] Last Admin: 08/29/18 21:02 Dose: 10 mg Carvedilol (Coreg) 12.5 mg PO BID [facility] Last Admin: 08/30/18 16:39 Dose: 12.5 mg Docusate Sodium (Colace) 100 mg PO DAILY PRN PRN Reason: Constipation Epoetin Kenneth (Procrit) 4,000 unit SC TTS [facility] Stop: 09/09/18 09:01 Last Admin: 08/30/18 13:58 Dose: 4,000 unit Ergocalciferol (Drisdol 50,000 Intl Units Cap) 1 cap PO Q7D [facility] Last Admin: 08/29/18 16:36 Dose: 1 cap Ferrous Sulfate (Feosol) 325 mg PO TIDWM [facility] Last Admin: 08/30/18 16:39 Dose: 325 mg Guaifenesin (Mucinex La) 600 mg PO Q12 [facility] Last Admin: 08/30/18 08:40 Dose: 600 mg Meropenem 500 mg/ Sodium (Chloride) 100 mls @ 100 mls/hr IVPB Q8@0500,1300,2100 [facility]; Protocol Last Admin: 08/30/18 12:16 Dose: 100 mls/hr Lactulose (Enulose) 20 gm PO DAILY PRN PRN Reason: Constipation Levetiracetam (Keppra) 500 mg PO BID [facility] Last Admin: 08/30/18 16:39 Dose: 500 mg Losartan Potassium (Cozaar) 50 mg PO DAILY [facility] Last Admin: 08/30/18 08:40 Dose: 50 mg Metformin HCl (Glucophage) 500 mg PO TID [facility] Last Admin: 08/30/18 16:39 Dose: 500 mg Nystatin (Nystatin Oral Susp) 5 ml PO QID [facility] Last Admin: 08/30/18 16:39 Dose: 5 ml Pantoprazole Sodium (Protonix Inj) 40 mg IVP DAILY [facility] Last Admin: 08/30/18 08:39 Dose: 40 mg Polyethylene Glycol (Miralax) 17 gm PO DAILY PRN PRN Reason: Constipation Sodium Bicarbonate (Sodium Bicarbonate Tab) 650 mg PO BID [facility] Last Admin: 08/30/18 16:39 Dose: 650 mg Tamsulosin HCl (Flomax) 0.8 mg PO DAILY [facility] Last Admin: 08/30/18 08:40 Dose: 0.8 mg Vitamin B Complex/Vit C/Folic Acid (Nephro-Maci) 1 tab PO DAILY [facility] Last Admin: 08/30/18 08:40 Dose: 1 tab - Labs Labs: 08/29/18 06:00 08/29/18 06:00 PT 12.5 Seconds (9.8-13.1) 08/29/18 06:00 INR 1.1 08/29/18 06:00 Assessment and Plan - Assessment and Plan (Free Text) Assessment: GI bleed?? Hbg drop 10.5-8.7 Stools??] Hx Anemia GI Bleed? EGD Gastric polyps PPI Monitor urine output VS H/H GI consult Hold Eliquis PTE DVT Hx Anemia GI Bleed? 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
[2018-08-30 20:25] LABS: HEMOGLOBIN 9.1 g/dL (12.0-18.0); MEAN CELL VOLUME 95.1 fl (80.0-94.0); MEAN CORPUSCULAR HEMOGLOBIN 30.6 pg (27.0-31.0); MEAN CORPUSCULAR HGB CONC 32.2 g/dL (33.0-37.0); RBC 2.97 Mil/uL (4.40-5.90); RED CELL DISTRIBUTION WIDTH 15.3 % (11.5-14.5); WHITE BLOOD COUNT 5.9 K/uL (4.8-10.8)
[2018-08-30 21:27] LABS: ALB/GLOB RATIO 0.9 (1.0-2.1); ALBUMIN 3.2 g/dL (3.5-5.0); ALT/SGPT 17 U/L (21-72); AST/SGOT 17 U/L (17-59); BLOOD UREA NITROGEN 29 mg/dl (9-20); CALCIUM 8.9 mg/dL (8.4-10.2); GFR NON-AFRICAN AMERICAN 59
--- NOTE | 2018-08-30 23:01 | CP.PCM.PN ---
Subjective - Date & Time of Evaluation Date of Evaluation: 08/30/18 Time of Evaluation: 22:59 - Subjective Subjective: No observed bleeding. Patient has been off Elliquis Objective - Vital Signs/Intake and Output Vital Signs (last 24 hours): Temp Pulse Resp BP Pulse Ox 97.3 F L 66 20 134/70 98 08/30/18 20:38 08/30/18 20:38 08/30/18 20:38 08/30/18 20:38 08/30/18 20:38 - Medications Medications: Current Medications Atorvastatin Calcium (Lipitor) 10 mg PO HS [facility] Last Admin: 08/30/18 22:31 Dose: 10 mg Carvedilol (Coreg) 12.5 mg PO BID [facility] Last Admin: 08/30/18 16:39 Dose: 12.5 mg Docusate Sodium (Colace) 100 mg PO DAILY PRN PRN Reason: Constipation Epoetin Kenneth (Procrit) 4,000 unit SC TTS [facility] Stop: 09/09/18 09:01 Last Admin: 08/30/18 13:58 Dose: 4,000 unit Ergocalciferol (Drisdol 50,000 Intl Units Cap) 1 cap PO Q7D [facility] Last Admin: 08/29/18 16:36 Dose: 1 cap Ferrous Sulfate (Feosol) 325 mg PO TIDWM [facility] Last Admin: 08/30/18 16:39 Dose: 325 mg Guaifenesin (Mucinex La) 600 mg PO Q12 [facility] Last Admin: 08/30/18 21:37 Dose: 600 mg Meropenem 500 mg/ Sodium (Chloride) 100 mls @ 100 mls/hr IVPB Q8@0500,1300,2100 [facility]; Protocol Last Admin: 08/30/18 21:34 Dose: 100 mls/hr Lactulose (Enulose) 20 gm PO DAILY PRN PRN Reason: Constipation Levetiracetam (Keppra) 500 mg PO BID [facility] Last Admin: 08/30/18 16:39 Dose: 500 mg Losartan Potassium (Cozaar) 50 mg PO DAILY [facility] Last Admin: 08/30/18 08:40 Dose: 50 mg Metformin HCl (Glucophage) 500 mg PO TID [facility] Last Admin: 08/30/18 16:39 Dose: 500 mg Nystatin (Nystatin Oral Susp) 5 ml PO QID [facility] Last Admin: 08/30/18 21:37 Dose: 5 ml Pantoprazole Sodium (Protonix Inj) 40 mg IVP DAILY [facility] Last Admin: 08/30/18 08:39 Dose: 40 mg Polyethylene Glycol (Miralax) 17 gm PO DAILY PRN PRN Reason: Constipation Sodium Bicarbonate (Sodium Bicarbonate Tab) 650 mg PO BID [facility] Last Admin: 08/30/18 16:39 Dose: 650 mg Tamsulosin HCl (Flomax) 0.8 mg PO DAILY [facility] Last Admin: 08/30/18 08:40 Dose: 0.8 mg Vitamin B Complex/Vit C/Folic Acid (Nephro-Maci) 1 tab PO DAILY [facility] Last Admin: 08/30/18 08:40 Dose: 1 tab - Labs Labs: 08/30/18 19:58 08/30/18 20:47 PT 12.5 Seconds (9.8-13.1) 08/29/18 06:00 INR 1.1 08/29/18 06:00 - Head Exam Head Exam: ATRAUMATIC - Eye Exam Eye Exam: Normal appearance - ENT Exam ENT Exam: Normal Exam - Neck Exam Neck Exam: Full ROM - Respiratory Exam Respiratory Exam: Clear to Ausculation Bilateral - Cardiovascular Exam Cardiovascular Exam: REGULAR RHYTHM - GI/Abdominal Exam GI & Abdominal Exam: Soft. absent: Tenderness Assessment and Plan (1) Gastrointestinal hemorrhage Assessment & Plan: Hgb currently table. May resume Elliquis and will follow clinically. Status: Acute
[2018-08-31] MEDS ORDERED: Sod Polystyrene Sulf 15 gm/60 ml Susp PO ONE (00:42)
[2018-08-31] MEDS: Meropenem 500 MG in Sodium Chloride 0.9% 100 ML IVPB SCH ×3 (05:44→21:15)
[2018-08-31 08:23] LABS: HEMOGLOBIN 8.6 g/dL (12.0-18.0); MEAN CELL VOLUME 93.8 fl (80.0-94.0); MEAN CORPUSCULAR HEMOGLOBIN 30.8 pg (27.0-31.0); MEAN CORPUSCULAR HGB CONC 32.8 g/dL (33.0-37.0); RBC 2.78 Mil/uL (4.40-5.90); RED CELL DISTRIBUTION WIDTH 15.1 % (11.5-14.5); WHITE BLOOD COUNT 6.1 K/uL (4.8-10.8)
[2018-08-31] MEDS: Multivitamin Vitamin B Complex (Nephro-Vite) Tab PO SCH (08:28)
[2018-08-31] MEDS: Nystatin 100,000 Units/ml Oral Susp 5 ml UD PO SCH ×4 (08:28→21:15)
[2018-08-31] MEDS: guaiFENesin 600 mg ER Tab PO SCH ×2 (08:28→21:15)
[2018-08-31 08:37] LABS: BLOOD UREA NITROGEN 32 mg/dl (9-20); CALCIUM 8.8 mg/dL (8.4-10.2); GFR NON-AFRICAN AMERICAN 53
--- NOTE | 2018-08-31 11:36 | CP.PCM.PN ---
Subjective - Date & Time of Evaluation Date of Evaluation: 08/31/18 Time of Evaluation: 09:00 - Subjective Subjective: afeb on IV antibiotics Objective - Vital Signs/Intake and Output Vital Signs (last 24 hours): Temp Pulse Resp BP Pulse Ox 97.8 F 67 20 143/73 98 08/31/18 09:14 08/31/18 09:14 08/31/18 09:14 08/31/18 09:14 08/31/18 09:14 Intake and Output: 08/31/18 08/31/18 06:59 18:59 Output Total Balance - Medications Medications: Current Medications Apixaban (Eliquis) 2.5 mg PO BID [facility]; Protocol Last Admin: 08/31/18 09:54 Dose: Not Given Atorvastatin Calcium (Lipitor) 10 mg PO HS [facility] Last Admin: 08/30/18 22:31 Dose: 10 mg Carvedilol (Coreg) 12.5 mg PO BID [facility] Last Admin: 08/31/18 08:26 Dose: 12.5 mg Docusate Sodium (Colace) 100 mg PO DAILY PRN PRN Reason: Constipation Epoetin Kenneth (Procrit) 4,000 unit SC TTS [facility] Stop: 09/09/18 09:01 Last Admin: 08/30/18 13:58 Dose: 4,000 unit Ergocalciferol (Drisdol 50,000 Intl Units Cap) 1 cap PO Q7D [facility] Last Admin: 08/29/18 16:36 Dose: 1 cap Ferrous Sulfate (Feosol) 325 mg PO TIDWM [facility] Last Admin: 08/31/18 08:26 Dose: 325 mg Guaifenesin (Mucinex La) 600 mg PO Q12 [facility] Last Admin: 08/31/18 08:28 Dose: 600 mg Meropenem 500 mg/ Sodium (Chloride) 100 mls @ 100 mls/hr IVPB Q8@0500,1300,2100 [facility]; Protocol Last Admin: 08/31/18 05:44 Dose: 100 mls/hr Lactulose (Enulose) 20 gm PO DAILY PRN PRN Reason: Constipation Levetiracetam (Keppra) 500 mg PO BID [facility] Last Admin: 08/31/18 08:27 Dose: 500 mg Loperamide HCl (Imodium) 2 mg PO Q6 PRN PRN Reason: Diarrhea Losartan Potassium (Cozaar) 50 mg PO DAILY [facility] Last Admin: 08/31/18 08:26 Dose: 50 mg Metformin HCl (Glucophage) 500 mg PO TID [facility] Last Admin: 08/31/18 08:27 Dose: 500 mg Nystatin (Nystatin Oral Susp) 5 ml PO QID [facility] Last Admin: 08/31/18 08:28 Dose: 5 ml Pantoprazole Sodium (Protonix Inj) 40 mg IVP DAILY [facility] Last Admin: 08/31/18 08:28 Dose: 40 mg Polyethylene Glycol (Miralax) 17 gm PO DAILY PRN PRN Reason: Constipation Sodium Bicarbonate (Sodium Bicarbonate Tab) 650 mg PO BID [facility] Last Admin: 08/31/18 08:28 Dose: 650 mg Tamsulosin HCl (Flomax) 0.8 mg PO DAILY [facility] Last Admin: 08/31/18 08:27 Dose: 0.8 mg Vitamin B Complex/Vit C/Folic Acid (Nephro-Maci) 1 tab PO DAILY [facility] Last Admin: 08/31/18 08:28 Dose: 1 tab - Labs Labs: 08/31/18 07:00 08/31/18 07:00 PT 12.5 Seconds (9.8-13.1) 08/29/18 06:00 INR 1.1 08/29/18 06:00 - Constitutional Appears: Chronically Ill - Head Exam Head Exam: ATRAUMATIC - Eye Exam Eye Exam: absent: Scleral icterus - ENT Exam ENT Exam: Mucous Membranes Dry - Neck Exam Neck Exam: absent: Lymphadenopathy - Respiratory Exam Respiratory Exam: Decreased Breath Sounds - Cardiovascular Exam Cardiovascular Exam: REGULAR RHYTHM - GI/Abdominal Exam GI & Abdominal Exam: Distended, Soft - Rectal Exam Rectal Exam: Deferred - Exam Exam: NORMAL INSPECTION Assessment and Plan - Assessment and Plan (Free Text) Plan: cont iv antibiotics for UTI
--- NOTE | 2018-08-31 11:55 | CP.PCM.PN ---
Subjective - Date & Time of Evaluation Date of Evaluation: 08/31/18 Time of Evaluation: 22:22 - Subjective Subjective: Above noted Eliquis restarted Hbg 8.6 Objective - Vital Signs/Intake and Output Vital Signs (last 24 hours): Temp Pulse Resp BP Pulse Ox 97.8 F 67 20 143/73 98 08/31/18 09:14 08/31/18 09:14 08/31/18 09:14 08/31/18 09:14 08/31/18 09:14 Intake and Output: 08/31/18 08/31/18 06:59 18:59 Output Total Balance - Medications Medications: Current Medications Apixaban (Eliquis) 2.5 mg PO BID [facility]; Protocol Last Admin: 08/31/18 09:54 Dose: Not Given Atorvastatin Calcium (Lipitor) 10 mg PO HS [facility] Last Admin: 08/30/18 22:31 Dose: 10 mg Carvedilol (Coreg) 12.5 mg PO BID [facility] Last Admin: 08/31/18 08:26 Dose: 12.5 mg Docusate Sodium (Colace) 100 mg PO DAILY PRN PRN Reason: Constipation Epoetin Kenneth (Procrit) 4,000 unit SC TTS [facility] Stop: 09/09/18 09:01 Last Admin: 08/30/18 13:58 Dose: 4,000 unit Ergocalciferol (Drisdol 50,000 Intl Units Cap) 1 cap PO Q7D [facility] Last Admin: 08/29/18 16:36 Dose: 1 cap Ferrous Sulfate (Feosol) 325 mg PO TIDWM [facility] Last Admin: 08/31/18 08:26 Dose: 325 mg Guaifenesin (Mucinex La) 600 mg PO Q12 [facility] Last Admin: 08/31/18 08:28 Dose: 600 mg Meropenem 500 mg/ Sodium (Chloride) 100 mls @ 100 mls/hr IVPB Q8@0500,1300,2100 [facility]; Protocol Last Admin: 08/31/18 05:44 Dose: 100 mls/hr Lactulose (Enulose) 20 gm PO DAILY PRN PRN Reason: Constipation Levetiracetam (Keppra) 500 mg PO BID [facility] Last Admin: 08/31/18 08:27 Dose: 500 mg Loperamide HCl (Imodium) 2 mg PO Q6 PRN PRN Reason: Diarrhea Losartan Potassium (Cozaar) 50 mg PO DAILY [facility] Last Admin: 08/31/18 08:26 Dose: 50 mg Metformin HCl (Glucophage) 500 mg PO TID [facility] Last Admin: 08/31/18 08:27 Dose: 500 mg Nystatin (Nystatin Oral Susp) 5 ml PO QID [facility] Last Admin: 08/31/18 08:28 Dose: 5 ml Pantoprazole Sodium (Protonix Inj) 40 mg IVP DAILY [facility] Last Admin: 08/31/18 08:28 Dose: 40 mg Polyethylene Glycol (Miralax) 17 gm PO DAILY PRN PRN Reason: Constipation Sodium Bicarbonate (Sodium Bicarbonate Tab) 650 mg PO BID [facility] Last Admin: 08/31/18 08:28 Dose: 650 mg Tamsulosin HCl (Flomax) 0.8 mg PO DAILY [facility] Last Admin: 08/31/18 08:27 Dose: 0.8 mg Vitamin B Complex/Vit C/Folic Acid (Nephro-Maci) 1 tab PO DAILY [facility] Last Admin: 08/31/18 08:28 Dose: 1 tab - Labs Labs: 08/31/18 07:00 08/31/18 07:00 PT 12.5 Seconds (9.8-13.1) 08/29/18 06:00 INR 1.1 08/29/18 06:00 - Respiratory Exam Respiratory Exam: Wheezes - Cardiovascular Exam Cardiovascular Exam: REGULAR RHYTHM - GI/Abdominal Exam GI & Abdominal Exam: Normal Bowel Sounds Assessment and Plan - Assessment and Plan (Free Text) Assessment: PTE DVT Hx Anemia GI Bleed? 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
[2018-08-31 19:13] LABS: MEAN CELL VOLUME 94.6 fl (80.0-94.0); MEAN CORPUSCULAR HEMOGLOBIN 31.2 pg (27.0-31.0); RBC 2.9 Mil/uL (4.40-5.90); WHITE BLOOD COUNT 7.9 K/uL (4.8-10.8)
--- NOTE | 2018-08-31 20:49 | CP.PCM.PN ---
Subjective - Date & Time of Evaluation Date of Evaluation: 08/31/18 Time of Evaluation: 09:00 - Subjective Subjective: Having some loose reddish stools today. Objective - Vital Signs/Intake and Output Vital Signs (last 24 hours): Temp Pulse Resp BP Pulse Ox 97.2 F L 72 18 120/56 L 97 08/31/18 19:42 08/31/18 19:42 08/31/18 19:42 08/31/18 19:42 08/31/18 19:42 Intake and Output: 08/31/18 09/01/18 18:59 06:59 Output Total 800 Balance -800 - Medications Medications: Current Medications Apixaban (Eliquis) 2.5 mg PO BID [facility]; Protocol Last Admin: 08/31/18 09:54 Dose: Not Given Atorvastatin Calcium (Lipitor) 10 mg PO HS [facility] Last Admin: 08/30/18 22:31 Dose: 10 mg Carvedilol (Coreg) 12.5 mg PO BID [facility] Last Admin: 08/31/18 16:41 Dose: 12.5 mg Docusate Sodium (Colace) 100 mg PO DAILY PRN PRN Reason: Constipation Epoetin Kenneth (Procrit) 4,000 unit SC TTS [facility] Stop: 09/09/18 09:01 Last Admin: 08/30/18 13:58 Dose: 4,000 unit Ergocalciferol (Drisdol 50,000 Intl Units Cap) 1 cap PO Q7D [facility] Last Admin: 08/29/18 16:36 Dose: 1 cap Ferrous Sulfate (Feosol) 325 mg PO TIDWM [facility] Last Admin: 08/31/18 16:42 Dose: 325 mg Guaifenesin (Mucinex La) 600 mg PO Q12 [facility] Last Admin: 08/31/18 08:28 Dose: 600 mg Meropenem 500 mg/ Sodium (Chloride) 100 mls @ 100 mls/hr IVPB Q8@0500,1300,2100 [facility]; Protocol Last Admin: 08/31/18 12:32 Dose: 100 mls/hr Lactulose (Enulose) 20 gm PO DAILY PRN PRN Reason: Constipation Levetiracetam (Keppra) 500 mg PO BID [facility] Last Admin: 08/31/18 16:42 Dose: 500 mg Loperamide HCl (Imodium) 2 mg PO Q6 PRN PRN Reason: Diarrhea Last Admin: 08/31/18 12:31 Dose: 2 mg Losartan Potassium (Cozaar) 50 mg PO DAILY [facility] Last Admin: 08/31/18 08:26 Dose: 50 mg Metformin HCl (Glucophage) 500 mg PO TID [facility] Last Admin: 08/31/18 16:42 Dose: 500 mg Nystatin (Nystatin Oral Susp) 5 ml PO QID [facility] Last Admin: 08/31/18 16:42 Dose: 5 ml Pantoprazole Sodium (Protonix Inj) 40 mg IVP DAILY [facility] Last Admin: 08/31/18 08:28 Dose: 40 mg Polyethylene Glycol (Miralax) 17 gm PO DAILY PRN PRN Reason: Constipation Sodium Bicarbonate (Sodium Bicarbonate Tab) 650 mg PO BID [facility] Last Admin: 08/31/18 16:42 Dose: 650 mg Tamsulosin HCl (Flomax) 0.8 mg PO DAILY [facility] Last Admin: 08/31/18 08:27 Dose: 0.8 mg Vitamin B Complex/Vit C/Folic Acid (Nephro-Maci) 1 tab PO DAILY [facility] Last Admin: 08/31/18 08:28 Dose: 1 tab - Labs Labs: 08/31/18 18:49 08/31/18 07:00 PT 12.5 Seconds (9.8-13.1) 08/29/18 06:00 INR 1.1 08/29/18 06:00 - Head Exam Head Exam: ATRAUMATIC - Eye Exam Eye Exam: Normal appearance Pupil Exam: PERRL - Respiratory Exam Respiratory Exam: Clear to Ausculation Bilateral - Cardiovascular Exam Cardiovascular Exam: REGULAR RHYTHM - GI/Abdominal Exam GI & Abdominal Exam: Soft, Normal Bowel Sounds. absent: Tenderness Assessment and Plan (1) Gastrointestinal hemorrhage Assessment & Plan: Hgb somewhat less today. Will check stools for occult blood and CBC in AM. NPO over night in case endoscopy needed tomorrow. Status: Acute
--- NOTE | 2018-08-31 21:27 | CP.PCM.PN ---
Subjective - Date & Time of Evaluation Date of Evaluation: 08/31/18 Time of Evaluation: 19:00 - Subjective Subjective: Restarted dose reduced Eliquis this AM Having redish BM GI following Objective - Vital Signs/Intake and Output Vital Signs (last 24 hours): Temp Pulse Resp BP Pulse Ox 97.2 F L 72 18 120/56 L 97 08/31/18 19:42 08/31/18 19:42 08/31/18 19:42 08/31/18 19:42 08/31/18 19:42 Intake and Output: 08/31/18 09/01/18 18:59 06:59 Output Total 800 Balance -800 - Medications Medications: Current Medications Apixaban (Eliquis) 2.5 mg PO BID [facility]; Protocol Last Admin: 08/31/18 09:54 Dose: Not Given Atorvastatin Calcium (Lipitor) 10 mg PO HS [facility] Last Admin: 08/31/18 21:15 Dose: 10 mg Carvedilol (Coreg) 12.5 mg PO BID [facility] Last Admin: 08/31/18 16:41 Dose: 12.5 mg Docusate Sodium (Colace) 100 mg PO DAILY PRN PRN Reason: Constipation Epoetin Kenneth (Procrit) 4,000 unit SC TTS [facility] Stop: 09/09/18 09:01 Last Admin: 08/30/18 13:58 Dose: 4,000 unit Ergocalciferol (Drisdol 50,000 Intl Units Cap) 1 cap PO Q7D [facility] Last Admin: 08/29/18 16:36 Dose: 1 cap Ferrous Sulfate (Feosol) 325 mg PO TIDWM [facility] Last Admin: 08/31/18 16:42 Dose: 325 mg Guaifenesin (Mucinex La) 600 mg PO Q12 [facility] Last Admin: 08/31/18 21:15 Dose: 600 mg Meropenem 500 mg/ Sodium (Chloride) 100 mls @ 100 mls/hr IVPB Q8@0500,1300,2100 [facility]; Protocol Last Admin: 08/31/18 21:15 Dose: 100 mls/hr Lactulose (Enulose) 20 gm PO DAILY PRN PRN Reason: Constipation Levetiracetam (Keppra) 500 mg PO BID [facility] Last Admin: 08/31/18 16:42 Dose: 500 mg Loperamide HCl (Imodium) 2 mg PO Q6 PRN PRN Reason: Diarrhea Last Admin: 08/31/18 12:31 Dose: 2 mg Losartan Potassium (Cozaar) 50 mg PO DAILY [facility] Last Admin: 08/31/18 08:26 Dose: 50 mg Metformin HCl (Glucophage) 500 mg PO TID [facility] Last Admin: 08/31/18 16:42 Dose: 500 mg Nystatin (Nystatin Oral Susp) 5 ml PO QID [facility] Last Admin: 08/31/18 21:15 Dose: 5 ml Pantoprazole Sodium (Protonix Inj) 40 mg IVP DAILY [facility] Last Admin: 08/31/18 08:28 Dose: 40 mg Polyethylene Glycol (Miralax) 17 gm PO DAILY PRN PRN Reason: Constipation Sodium Bicarbonate (Sodium Bicarbonate Tab) 650 mg PO BID [facility] Last Admin: 08/31/18 16:42 Dose: 650 mg Tamsulosin HCl (Flomax) 0.8 mg PO DAILY [facility] Last Admin: 08/31/18 08:27 Dose: 0.8 mg Vitamin B Complex/Vit C/Folic Acid (Nephro-Maci) 1 tab PO DAILY [facility] Last Admin: 08/31/18 08:28 Dose: 1 tab - Labs Labs: 08/31/18 18:49 08/31/18 07:00 PT 12.5 Seconds (9.8-13.1) 08/29/18 06:00 INR 1.1 08/29/18 06:00 - Head Exam Head Exam: ATRAUMATIC - Eye Exam Eye Exam: Normal appearance - ENT Exam ENT Exam: Mucous Membranes Dry - Respiratory Exam Respiratory Exam: NORMAL BREATHING PATTERN - Cardiovascular Exam Cardiovascular Exam: +S1, +S2 - GI/Abdominal Exam GI & Abdominal Exam: Normal Bowel Sounds Assessment and Plan (1) Anemia Assessment & Plan: restarted Eliquis this AM with reddish stools; Eliquis held H/H stable GI f/u Status: Chronic (2) History of pulmonary embolus (PE) Assessment & Plan: s/p IVC filter on intermittent dose reduced Eliquis; currently held for reddish BM Status: Acute
[2018-09-01] MEDS: Meropenem 500 MG in Sodium Chloride 0.9% 100 ML IVPB SCH (04:34)
[2018-09-01 08:27] VITALS: BP 138/68; PULSE 69; RESP 20; TEMP 97.3; O2SAT 98
[2018-09-01] MEDS ORDERED: Desmopressin 4 mcg/ml Inj (1 ml) IVP ONE (08:31)
[2018-09-01] MEDS: guaiFENesin 600 mg ER Tab PO SCH (08:37)
[2018-09-01] MEDS: Nystatin 100,000 Units/ml Oral Susp 5 ml UD PO SCH (08:37)
[2018-09-01] MEDS: Multivitamin Vitamin B Complex (Nephro-Vite) Tab PO SCH (08:37)
--- NOTE | 2018-09-01 20:00 | CP.PCM.PN ---
Subjective - Date & Time of Evaluation Date of Evaluation: 09/01/18 Time of Evaluation: 22:22 - Subjective Subjective: Above noted Objective - Vital Signs/Intake and Output Vital Signs (last 24 hours): Temp Pulse Resp BP Pulse Ox 97.3 F L 69 20 138/68 98 09/01/18 08:26 09/01/18 08:36 09/01/18 08:26 09/01/18 08:36 09/01/18 08:26 - Labs Labs: 08/31/18 18:49 08/31/18 07:00 PT 12.5 Seconds (9.8-13.1) 08/29/18 06:00 INR 1.1 08/29/18 06:00 - Respiratory Exam Respiratory Exam: NORMAL BREATHING PATTERN - Cardiovascular Exam Cardiovascular Exam: REGULAR RHYTHM - GI/Abdominal Exam GI & Abdominal Exam: Normal Bowel Sounds Assessment and Plan - Assessment and Plan (Free Text) Assessment: GI Bleed? 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
== END 2018-09-01 10:40 | disposition short-term general hospital (02) | DRG 689 ==
LOC: H.TCU 19:48
PROVIDERS: ADMIT Family Medicine Geriatric Medicine; ATTEND Family Medicine Geriatric Medicine
PROC: 3E03329 Introduction of Other Anti-infective into Peripheral Vein, Percutaneous Approach (ICD-10-PCS; principal; 2018-08-26)
PROC: F07Z9FZ Gait Training/Functional Ambulation Treatment using Assistive, Adaptive, Supportive or Protective Equipment (ICD-10-PCS; 2018-08-26)
PROC: F08Z4FZ Home Management Treatment using Assistive, Adaptive, Supportive or Protective Equipment (ICD-10-PCS; 2018-08-26)
PROC: F07M6FZ Therapeutic Exercise Treatment of Musculoskeletal System - Whole Body using Assistive, Adaptive, Supportive or Protective Equipment (ICD-10-PCS; 2018-08-27)
DX: N39.0 Urinary tract infection, site not specified (principal); I26.99 Other pulmonary embolism without acute cor pulmonale; N17.9 Acute kidney failure, unspecified; K92.2 Gastrointestinal hemorrhage, unspecified; Z16.12 Extended spectrum beta lactamase (ESBL) resistance; D50.0 Iron deficiency anemia secondary to blood loss (chronic); N31.8 Other neuromuscular dysfunction of bladder; I69.322 Dysarthria following cerebral infarction; Z86.718 Personal history of other venous thrombosis and embolism; N12 Tubulo-interstitial nephritis, not specified as acute or chronic; I12.9 Hypertensive chronic kidney disease with stage 1 through stage 4 chronic kidney disease, or unspecified chronic kidney disease; N18.3 Chronic kidney disease, stage 3 (moderate); D63.1 Anemia in chronic kidney disease; E11.22 Type 2 diabetes mellitus with diabetic chronic kidney disease; E11.21 Type 2 diabetes mellitus with diabetic nephropathy; G40.909 Epilepsy, unspecified, not intractable, without status epilepticus; E78.00 Pure hypercholesterolemia, unspecified; K31.7 Polyp of stomach and duodenum; E55.9 Vitamin D deficiency, unspecified; Z87.440 Personal history of urinary (tract) infections; Z79.01 Long term (current) use of anticoagulants; Z79.84 Long term (current) use of oral hypoglycemic drugs; Z87.891 Personal history of nicotine dependence